=== PATIENT | female | born 1950 | race Caucasian/White ===

== ENCOUNTER → 2020-01-05 10:06 | Outpatient (CLI) | payer MEDICARE, OTHER, SELFPAY ==
--- NOTE | ~2020-01-05 | US_ITS ---
EXAMINATION: US renal BI EXAM DATE: 01/05/2020 11:34 INDICATION: Chronic kidney disease stage IV. TECHNIQUE: Multiple grayscale and Doppler images of the kidneys were obtained (by a technologist who performed the scan) and subsequently reviewed. There is no prior study for comparison. FINDINGS: Severe bilateral renal cortical thinning. Right kidney: There is normal contour and echogenicity. It measures 10.3 x 6.1 x 5.0 centimeters. Ca lcific density with shadowing could be a 1 cm kidney stone. There are a couple of lesions likely cyst s measuring up to 1.6 cm. There is no hydronephrosis. Left kidney: There is normal contour and echogenicity. It measures 10.0 x 5.7 x 5.2 centimeters. Th ere are no focal renal lesions identified. There is no hydronephrosis. Bladder unremarkable. IMPRESSION: 1. Severe bilateral renal cortical thinning. 2. Probable right nephrolithiasis. Reviewed, dictated and finalized at location B. [employer]AL[employer] CONTROL TECHNICIAN
== END ==
PROVIDERS: PCP Family Medicine; Visit Provider Internal Medicine Nephrology
DX: N18.4 Chronic kidney disease, stage 4 (severe) (principal); N28.9 Disorder of kidney and ureter, unspecified
CPT/HCPCS: 76775

== ENCOUNTER → 2021-08-28 00:14 | Outpatient (CLI) | payer MEDICARE, OTHER, SELFPAY ==
[2021-08-28 18:52] LABS: SARS-CoV-2 RNA PCR Negative
== END ==
PROVIDERS: PCP Family Medicine; Referring Provider Internal Medicine Cardiovascular Disease; Visit Provider Internal Medicine Cardiovascular Disease
DX: Z01.812 Encounter for preprocedural laboratory examination (principal); Z20.822 Contact with and (suspected) exposure to COVID-19
CPT/HCPCS: C9803; U0003; U0005

== ENCOUNTER 2021-11-09 09:45 | Outpatient (RCR) | payer MEDICARE, OTHER, SELFPAY ==
[2021-10-13 15:41] VITALS: PULSE 64
== END 2021-11-13 10:40 | disposition home or self-care (01) ==
LOC: ANHCPREHAB 09:45
PROVIDERS: PCP Family Medicine; Visit Provider Internal Medicine Cardiovascular Disease
DX: Z95.2 Presence of prosthetic heart valve (principal)
CPT/HCPCS: 93798

== ENCOUNTER 2022-03-22 01:22 | Day surgery (SDC) | payer MEDICARE, SELFPAY ==
[2022-02-27 14:05] VITALS: BMI 35.9
[2022-03-22 12:10] VITALS: BP 149/64; PULSE 89; RESP 20; TEMP 36.6; O2SAT 99
[2022-03-22] MEDS: LACTATED RINGERS 1,000 ML 150 ML IV CONT (12:29)
[2022-03-22] MEDS: GENTAMICIN 80MG/SOD CHL 50 ML 80 MG/50 ML BAG 100 MG IVPB (12:30)
--- NOTE | 2022-03-22 12:46 | PM.HPGS ---
History of Present Illness History of Present Illness Consent: Risks, benefits, and alternatives have been discussed and questions answered. Patient agrees to proceed with procedure. Chief complaint: anemia Narrative: Amelie Menjivar is a 71 year old female Referred for colon cancer screening. She has been found to be anemic. Her last colonoscopy was done about 9 years ago. That examination was also done because of anemia. At that time it appears that she had 1 small polyp removed. He denies seeing blood in her stools. She had been on a blood thinner for a few months after she had her aortic valve replaced last fall but is no longer taking it. Review of Systems Review of Systems: All systems reviewed & are unremarkable except as noted in HPI and below PMFSH Past Medical History Medical History Aortic stenosis Surgical History Surgical History Ganglion cyst s/p excision from left wrist S/P TAVR (transcatheter aortic valve replacement) Family History Family History Father Family history of coronary artery disease Social History Social History Smoking packs per day: 2 Smoking cigarettes per day: 40.0 Years smoked: 13 Smoking pack-years: 26.00 Smoking status: Former smoker Tobacco type: cigarettes Second hand tobacco smoke exposure: No Smoking end date: 11/11/79 Alcohol intake: never Substance use: never Substance use type: does not use Living arrangements: alone Gender identity (if verbalized by the patient): Female Spiritual care concerns: No Meds Home Medications and Allergies Home Medications Medication Instructions Recorded Confirmed Type labetalol 200 mg tablet 200 mg PO Q12H #180 tablet 10/02/21 02/27/22 Rx Calcium 600 + D(3) 600 mg PO DAILY 10/13/21 02/27/22 History aspirin [Adult Aspirin] 81 mg PO DAILY 10/13/21 02/27/22 History diltiazem HCl 120 mg PO DAILY 10/13/21 02/27/22 History potassium [Potassium-99] 99 mg PO DAILY 10/13/21 02/27/22 History citalopram 20 mg tablet 20 mg PO DAILY #90 tablet 12/04/21 02/27/22 Rx losartan 100 mg tablet 100 mg PO DAILY #90 tablet 12/04/21 02/27/22 Rx minoxidil 2.5 mg tablet 2.5 mg PO BID #180 tablet 01/17/22 02/27/22 Rx atorvastatin 80 mg tablet 80 mg PO DAILY #90 tablet 02/26/22 02/27/22 Rx fenofibrate 48 mg PO DAILY 02/27/22 02/27/22 History Allergies Allergy/AdvReac Type Severity Reaction Status Date / Time No Known Allergies Allergy Verified 03/22/22 12:09 Vital Signs Vital Signs - 24 hr 03/22/22 12:10 Temperature 36.6 C Pulse Rate 89 Respiratory Rate 20 Blood Pressure 149/64 H Pulse Oximetry 99 Exam Resp: Auscultation: clear to auscultation bilaterally Cardio: Rate: regular rate Rhythm: regular rhythm GI: GI Palp: Yes Soft to palpation and No Tenderness to palpation present (GI) Assessment and Plan Assessment and plan (1) Anemia: Code(s): D64.9 - Anemia, unspecified Status: Acute Assessment and Plan: Colonoscopy with possible biopsy or polypectomy or cautery or injection of substances.
--- NOTE | 2022-03-22 12:53 | WPDANESEPPF ---
Anes - Initial Pre Proc Eval Procedure: Operation Date: 03/22/22 13:30 Proposed Procedures p Colonoscopy - Jerry Benavides MD Date/Time: 03/22/22 12:53 Surgeon: Jerry Benavides MD Pre Op Diagnosis: anemia Patient Data Age: 71 Gender: F Height: 1.55 m Weight: 85.4 kg Last Vital Signs Temp 97.8 F 03/22/22 12:10 Pulse 89 03/22/22 12:10 Resp 20 03/22/22 12:10 BP 149/64 H 03/22/22 12:10 Pulse Ox 99 03/22/22 12:10 Allergies Allergy/AdvReac Type Severity Reaction Status Date / Time No Known Allergies Allergy Verified 03/22/22 12:09 Home Medications Medication Instructions Recorded Confirmed Type labetalol 200 mg tablet 200 mg PO Q12H #180 tablet 10/02/21 02/27/22 Rx Calcium 600 + D(3) 600 mg PO DAILY 10/13/21 02/27/22 History aspirin [Adult Aspirin] 81 mg PO DAILY 10/13/21 02/27/22 History diltiazem HCl 120 mg PO DAILY 10/13/21 02/27/22 History potassium [Potassium-99] 99 mg PO DAILY 10/13/21 02/27/22 History citalopram 20 mg tablet 20 mg PO DAILY #90 tablet 12/04/21 02/27/22 Rx losartan 100 mg tablet 100 mg PO DAILY #90 tablet 12/04/21 02/27/22 Rx minoxidil 2.5 mg tablet 2.5 mg PO BID #180 tablet 01/17/22 02/27/22 Rx atorvastatin 80 mg tablet 80 mg PO DAILY #90 tablet 02/26/22 02/27/22 Rx fenofibrate 48 mg PO DAILY 02/27/22 02/27/22 History Patient hx anesthesia problems: none Family hx anesthesia problems: none Results Review: All pre-operative results and documents have been reviewed as part of the pre-operative evaluation. COUNTS INCLUDE 234 BEDS AT THE [facility] Past Medical History Medical History Aortic stenosis Surgical History Surgical History Ganglion cyst s/p excision from left wrist S/P TAVR (transcatheter aortic valve replacement) Family History Family History Father Family history of coronary artery disease Social History Social History Smoking packs per day: 2 Smoking cigarettes per day: 40.0 Years smoked: 13 Smoking pack-years: 26.00 Smoking status: Former smoker Tobacco type: cigarettes Second hand tobacco smoke exposure: No Smoking end date: 11/11/79 Alcohol intake: never Substance use: never Substance use type: does not use Living arrangements: alone Gender identity (if verbalized by the patient): Female Spiritual care concerns: No Anes - Eval Final PreProcedure Day of Procedure 03/22/22 12:53 Patient weight: obese Heart: regular rate and rhythm and murmur Lungs: clear to auscultation Airway: Mallampati scale class II Neurological: alert and oriented Last oral intake: >/= 8 hours ASA classification: III Emergent: no Anesthetic plan: proceed Anesthesia type and monitoring: general GIVS and standard monitoring Results Review: All pre-operative results and documents have been reviewed as part of the pre-operative evaluation. Informed Consent: The patient's anesthetic plan and its attendant risks and benefits were discussed with the patient/family/POA. Questions were solicited and answers provided to the satisfaction of the patient/family/POA.
[2022-03-22] MEDS: AMPICILLIN 2 GM/NS 100 ML 2 GM/100 ML BAG IVPB (12:57)
[2022-03-22 13:53] VITALS: BP 147/72; PULSE 88; RESP 27; O2SAT 95
[2022-03-22 14:03] VITALS: BP 152/61; PULSE 89; RESP 20; O2SAT 97
[2022-03-22 14:13] VITALS: BP 139/64; PULSE 84; RESP 21; O2SAT 98
== END 2022-03-22 14:32 | disposition home or self-care (01) ==
PROVIDERS: PCP Family Medicine; Visit Provider Internal Medicine Gastroenterology
PROC: 0DJD8ZZ Inspection of Lower Intestinal Tract, Via Natural or Artificial Opening Endoscopic (ICD-10-PCS; CPT 45378; principal; 2022-03-22 13:30)
DX: D64.9 Anemia, unspecified (principal); D12.4 Benign neoplasm of descending colon; K64.8 Other hemorrhoids; Z79.82 Long term (current) use of aspirin; I35.0 Nonrheumatic aortic (valve) stenosis; Z95.2 Presence of prosthetic heart valve; Z87.891 Personal history of nicotine dependence; E66.9 Obesity, unspecified; Z68.35 Body mass index [BMI] 35.0-35.9, adult
CPT/HCPCS: 45385; 88305; J0290; J1580; J2704; J7120

== ENCOUNTER 2022-06-24 18:23 | Emergency (ER) | payer MEDICARE, SELFPAY ==
[2022-06-24] VITALS (31 sets, daily range): BP systolic 81–157; BP diastolic 28–72; PULSE 48–82; RESP 11–20; TEMP 32.2–35.3; O2SAT 83–100
--- NOTE | ~2022-06-24 | CT_ITS ---
EXAMINATION: CT brain wo con DATE: 06/24/2022 20:33 INDICATION: Altered mental status TECHNIQUE: Computed tomography (CT) of the head was performed without intravenous contrast. The dose- length product was 1362.00 mGy-cm. Automated exposure control and iterative reconstruction technique were employed. COMPARISON: CT dated 03/14/2004 FINDINGS: Study is significantly limited by motion artifact. Generalized atrophy. Chronic right front al lobe infarction. There are scattered moderate periventricular and subcortical white matter changes , most likely related to small vessel ischemic disease (microangiopathy). Possible small right fronta l subdural hematoma, although this could be related to motion artifact. Recommend repeat CT scan foll owing sedation. No acute infarction identified. No ventriculomegaly or midline shift. Paranasal sinus es and mastoids are pneumatized. No depressed skull fractures. IMPRESSION: 1. Possible small right frontal subdural hematoma, although this could be artifact secondary to signi ficant motion. Recommend repeat CT head when the patient's condition permits following sedation. 2: Chronic right frontal lobe infarction. 3: Chronic age-related findings. Reviewed, dictated and finalized at location A. IMPRESSION: 1. Possible small right frontal subdural hematoma, although this could be artif act secondary to significant motion. Recommend repeat CT head when the patient' s condition permits following sedation. 2: Chronic right frontal lobe infarction. 3: Chronic age-related findings.
--- NOTE | ~2022-06-24 | XR_ITS ---
XR chest 1V portable 06/24/2022 19:56 Indication: Bradycardia. Shortness of breath. Procedure: AP portable chest Comparison: Comparison to multiple prior studies sequentially, with oldest reviewed study dated 02/2004. Findings: Moderate cardiomegaly. There is mild interstitial edema. No pleural effusion or pneumothora x. No acute osseous abnormality. There is a prosthetic aortic valve. Impression: 1: Moderate cardiomegaly with interstitial edema. Reviewed, dictated and finalized at location A. Impression: 1: Moderate cardiomegaly with interstitial edema.
--- NOTE | ~2022-06-24 | CT_ITS ---
EXAMINATION: CT chest abdomen pelvis w con DATE: 06/24/2022 20:38 CDT INDICATION: Sepsis. Hematoma the right thigh. Altered mental status. TECHNIQUE: Computed tomography (CT) of the chest, abdomen, and pelvis was performed with 100 cc Omnip aque 350 intravenous contrast. The dose-length product was 1677.29 mGy-cm. Automated exposure control and iterative reconstruction technique were employed. COMPARISON: None FINDINGS: CHEST CT: Cardiomegaly. There is atherosclerosis of the aorta and coronary arteries. Study limited by motion ar tifact. No thoracic lymphadenopathy. Enlarged pulmonary arteries suspicious for pulmonary hypertensio n. Dependent atelectasis. No pneumothorax identified. ABDOMEN/PELVIS CT: The liver, spleen, adrenal glands are unremarkable. There is bilateral renal atrophy. There are bilat eral renal cysts. There is a 2.7 cm intermediate density mass of the left kidney. Correlation with ul trasound recommended when the patient's condition permits. Gallbladder present. Nonobstructive bowel gas pattern. No evidence for free air or free fluid. Petit catheter present in the bladder. There is moderate thoracic and lumbar spondylosis. IMPRESSION: 1. No acute abnormality of the chest, abdomen or pelvis. 2: Cardiomegaly. 3: Bilateral renal atrophy, likely secondary to chronic renal disease. 4: Intermediate density left renal mass measuring 2.7 cm. Correlation with ultrasound recommended wh en patient's condition permits. Reviewed, dictated and finalized at location A. IMPRESSION: 1. No acute abnormality of the chest, abdomen or pelvis. 2: Cardiomegaly. 3: Bilateral renal atrophy, likely secondary to chronic renal disease. 4: Intermediate density left renal mass measuring 2.7 cm. Correlation with ult rasound recommended when patient's condition permits.
--- NOTE | 2022-06-24 18:39 | ECG_ITS ---
Measurements Intervals Harris Rate: 47 P: 12 WI: 150 QRS: 39 QRSD: 124 T: 11 QT: 507 QTc: 451 Interpretive Statements SINUS BRADYCARDIA NONSPECIFIC INTRAVENTRICULAR CONDUCTION DELAY [110+ ms QRS DURATION] BORDERLINE ECG NO PREVIOUS ECG AVAILABLE FOR COMPARISON Electronically Signed On 06-25-2022 13:54:58 CDT by Adolph Mitchell M.D.
[2022-06-24 18:51] LABS: Basophils Percent Auto 0.3 % (0.2-1.2); Eosinophils Percent Auto 0.4 % (0-4.4); Hematocrit 21.9 % (37.0-47.0); Immature Granulocyte Absolute 0.05 K/mm3 (0.00-0.031); Immature Granulocyte Percent A 0.7 % (0-0.5); Lymphocytes Absolute Auto 0.43 K/mm3 (0.9-3.2); Lymphocytes Percent Auto 5.8 % (18.3-44.2); Mean Corpuscular HGB Conc 29.7 g/dl (32-36); Mean Corpuscular Hemoglobin 28.4 pg (26-34); Mean Corpuscular Volume 95.6 fl (80-100); Mean Platelet Volume 10.7 fl (7.4-10.4); Monocytes Absolute Auto 0.4 K/mm3 (0.1-0.6); Monocytes Percent Auto 5.3 % (2.6-8.5); Neutrophils Absolute Auto 6.5 K/mm3 (1.3-6.7); Neutrophils Percent Auto 87.5 % (45.5-73.1); Platelet Count Result 261 k/mm3 (150-375); Red Blood Count 2.29 M/mm3 (4.2-5.4); Red Cell Distribution Width 15.6 % (11.5-14.5); White Blood Count 7.4 K/mm3 (4.5-10.0)
[2022-06-24 19:00] LABS: Hemoglobin 6.5 g/dL (12.0-15.0); INR 1.4; Prothrombin Time 16.4 Seconds (11.1-14.7)
[2022-06-24] MEDS: DEXTROSE 50% 25 GM/50 ML SYRINGE (19:00)
[2022-06-24 19:01] LABS: Partial Thromboplastin Time 33.7 SECONDS (22.3-36.8)
[2022-06-24 19:02] LABS: Hypochromasia 1+ (NORMAL); Ovalocytes 1+ (NORMAL); Platelet Estimate Adequate (Adequate)
[2022-06-24 19:03] LABS: Glucose Point of Care 143 mg/dl (65-105)
[2022-06-24] MEDS: NOREPINEPHRINE 8 MG/D5W 250 ML 8 MG/250 ML BAG 9.4 MG (19:07)
[2022-06-24] MEDS: GLUCOSE ORAL GEL 15 GM OF GLUCSE IN 37.5 GM TUBE (19:08)
[2022-06-24 19:17] LABS: Troponin I 0.042 ng/mL (0.000-0.034)
[2022-06-24 19:22] LABS: Appearance Urine Clear (Clear); Bilirubin Urine 1+ (Negative); Blood Urine Trace-lysed (Negative); Color Urine Yellow (Yellow); Glucose Urine UA Negative (Negative); Ketones Urine Negative (Negative); Leukocyte Esterase Ur 1+ LEU/UL (Negative); Nitrate Urine Negative (Negative); Protein Urine Trace mg/dL (Negative); Specific Grav Ur 1.025 (1.001-1.035); Urobilinogen Urine 0.2 mg/dL (<2.0)
[2022-06-24 19:26] LABS: Bacteria Urine Trace /hpf; Mucus Urine Rare /lpf; RBC Urine 0-2 /hpf (0-2); Squamous Epithelial Cell Urine Rare /hpf (Few); Transitional Epi Cells Urine Rare /hpf (None Seen)
--- NOTE | 2022-06-24 19:26 | ED.GENADULT ---
HPI - General Adult General Chief complaint: Altered Mental Status Stated complaint: altered mental Time Seen by Provider: 06/24/22 18:38 History of Present Illness HPI narrative: This is a 71-year-old female, past medical history of hypertension and diabetes, brought to the emergency department for altered mental status. Patient's who is at bedside states she has appeared to lethargic over the past day. He states she has not been eating and is not sure if her blood glucose is low. He states she has had some fevers but no other obvious infectious signs. Related Data Home Medications Medication Instructions Recorded Confirmed Calcium 600 + D(3) 600 mg PO DAILY 10/13/21 02/27/22 aspirin 81 mg tablet 81 mg PO DAILY 10/13/21 02/27/22 diltiazem HCl 60 mg tablet 120 mg PO DAILY 10/13/21 02/27/22 potassium 99 mg tablet 99 mg PO DAILY 10/13/21 02/27/22 fenofibrate 160 mg tablet 48 mg PO DAILY 02/27/22 02/27/22 Allergies Allergy/AdvReac Type Severity Reaction Status Date / Time No Known Allergies Allergy Verified 03/22/22 12:09 Review of Systems Review of Systems: Review of systems limited by patient acuity [facility] Past Medical History Medical History Aortic stenosis Surgical History Surgical History Ganglion cyst s/p excision from left wrist S/P TAVR (transcatheter aortic valve replacement) Family History Family History Father Family history of coronary artery disease Social History Social History Smoking packs per day: 2 Smoking cigarettes per day: 40.0 Years smoked: 13 Smoking pack-years: 26.00 Smoking status: Former smoker Tobacco type: cigarettes Second hand tobacco smoke exposure: No Smoking end date: 11/11/79 Alcohol intake: never Substance use: never Substance use type: does not use Gender identity (if verbalized by the patient): Female Spiritual care concerns: No Exam Narrative: GENERAL: Diaphoretic, minimally responsive to voice and painful stimulus HEAD: Normocephalic, atraumatic. EYES: PERRLA and EOMI. ENT: Nares clear, no rhinorrhea or epistaxis. Mucous membranes dry. Oropharynx without tonsillar hypertrophy exudate or other lesions. NECK: Supple. No adenopathy or masses. No carotid bruits or JVD CHEST: Clear to auscultation. No respiratory distress. No wheezes rales or rhonchi HEART: Bradycardic with regular rhythm ( sinus rhythm noted on the monitor) No murmur heard. Normal peripheral pulses. ABDOMEN: Soft, nontender, nondistended, normal active bowel sounds. EXTREMITIES: Normal range of motion. No edema. Large hematoma is noted over the right lateral and posterior thigh, no thrill noted, bilateral lower extremity edema 1+ with hypertrophy SKIN: Warm, dry, no rash. NEURO: No focal deficits. Alert and oriented x3. PSYCH: Normal mood and affect. Course Course Emergency Course: 18:40 - Patient presented with hypoglycemia to 42. She was given oral glucose and an amp of dextrose with improvement to the 140s. Blood pressure noted to be in the 80s. I suspect sepsis we will start sepsis protocol and begin Levophed. 19:20 - Informed reinforcing rod layer, Dr. Valentin of patient's current condition, suspected sepsis and ongoing work-up with anticipated admission. 20:00 - Discussed patient with hospitalist, Dr. Villanueva who request patient be transferred to trauma center considering the patient's right leg hematoma and decrease in hemoglobin. We will obtain CT chest abdomen pelvis and head to evaluate for hemorrhage. Chest x-ray concerning for interstitial edema, will hold IV fluids and continue pressors. 20:52 - CT chest abdomen pelvis does not show other source for infection. Hematoma noted in the right leg that is not concerning for active bleed and appears to
[2022-06-24 19:34] LABS: Add Urine Microscopic? YES
[2022-06-24 19:44] LABS: Glucose Point of Care 42 mg/dl (65-105)
--- NOTE | 2022-06-24 19:48 | PM.IMHP ---
H&P: HPI History of Present Illness Date/Time: 06/24/22 19:48 [facility] Past Medical History Medical History Aortic stenosis Surgical History Surgical History Ganglion cyst s/p excision from left wrist S/P TAVR (transcatheter aortic valve replacement) Family History Family History Father Family history of coronary artery disease Social History Social History Smoking packs per day: 2 Smoking cigarettes per day: 40.0 Years smoked: 13 Smoking pack-years: 26.00 Smoking status: Former smoker Tobacco type: cigarettes Second hand tobacco smoke exposure: No Smoking end date: 11/11/79 Alcohol intake: never Substance use: never Substance use type: does not use Gender identity (if verbalized by the patient): Female Spiritual care concerns: No Meds Home Medications and Allergies Home Medications Medication Instructions Recorded Confirmed Type labetalol 200 mg tablet 200 mg PO Q12H #180 tabs 10/02/21 02/27/22 Rx Calcium 600 + D(3) 600 mg PO DAILY 10/13/21 02/27/22 History aspirin 81 mg tablet 81 mg PO DAILY 10/13/21 02/27/22 History diltiazem HCl 60 mg tablet 120 mg PO DAILY 10/13/21 02/27/22 History potassium 99 mg tablet 99 mg PO DAILY 10/13/21 02/27/22 History citalopram 20 mg tablet 20 mg PO DAILY #90 tabs 12/04/21 02/27/22 Rx losartan 100 mg tablet 100 mg PO DAILY #90 tabs 12/04/21 02/27/22 Rx minoxidil 2.5 mg tablet 2.5 mg PO BID #180 tabs 01/17/22 02/27/22 Rx atorvastatin 80 mg tablet (Lipitor) 80 mg PO DAILY #90 tabs 02/26/22 02/27/22 Rx fenofibrate 160 mg tablet 48 mg PO DAILY 02/27/22 02/27/22 History Allergies Allergy/AdvReac Type Severity Reaction Status Date / Time No Known Allergies Allergy Verified 03/22/22 12:09 Vital Signs Vital Signs - 24 hr 06/24/22 18:30 06/24/22 19:07 Pulse Rate 48 L 49 L Blood Pressure 102/70 115/52 L Pulse Oximetry 83 L Oxygen Delivery Room Air H&P: Results Labs Labs: Short CBC 06/24/22 Range/Units 18:45 WBC 7.4 (4.5-10.0) K/mm3 Hgb 6.5 L* (12.0-15.0) g/dL Hct 21.9 L (37.0-47.0) % Plt Count 261 (150-375) k/mm3 Cardiac Enzymes 06/24/22 Range/Units 18:45 Troponin I 0.042 H* (0.000-0.034) ng/mL Urine 06/24/22 Range/Units 19:18 Urine Color Yellow (Yellow) Urine Appearance Clear (Clear) Urine pH 5.0 (5.0-9.0) Ur Specific [place] 1.025 (1.001-1.035) Urine Protein Trace (Negative) mg/dL Urine Glucose (UA) Negative (Negative) mg/dL
--- NOTE | 2022-06-24 20:05 | PC.NURSE ---
This RN MD about central line. MD notified no changes at this time. Patient blood cultures not drawn EDP Fallon aware and asked us to start antibiotics. 2099 16 IV placed in hand.
--- NOTE | 2022-06-24 20:07 | PC.NURSE ---
To CT scan with RN and gate technician.
[2022-06-24 20:08] LABS: Hematocrit 21.4 % (37.0-47.0)
[2022-06-24 20:10] LABS: Hemoglobin 6.3 g/dL (12.0-15.0)
[2022-06-24 20:19] LABS: Estimated CRCL calculation 11 ml/min; Estimated Glomerular Filt Rate 10
[2022-06-24 21:19] LABS: Alanine Aminotransferase 37 U/L (6-35); Albumin Level 3.4 g/dL (3.5-5.1); Alkaline Phosphatase 26 U/L (38-126); Anion Gap 10 mmol/L (8-16); Aspartate Amino Transferase 51 U/L (14-36); Bilirubin,Total 0.9 mg/dL (0.2-1.3); Blood Urea Nitrogen 85 mg/dL (7-17); CRP 2.7 mg/dL (<1.0); Calcium 8.7 mg/dL (8.4-10.2); Carbon Dioxide 19 mmol/L (22-30); Chloride 110 mmol/L (98-107); Estimated CRCL calculation 12 ml/min; Estimated Glomerular Filt Rate 10; Glucose 98 mg/dL (65-110); Potassium 5.5 mmol/L (3.4-5.0); Sodium 139 mmol/L (137-145)
[2022-06-24] MEDS: FENTANYL 2,500MCG/NS250ML(*CRX 2,500 MCG/250 ML BAG 10 MCG IV CONT (21:25)
--- NOTE | 2022-06-24 21:46 | PM.IMHP ---
H&P: HPI History of Present Illness Date/Time: 06/24/22 21:46 [facility] Past Medical History Medical History Aortic stenosis Surgical History Surgical History Ganglion cyst s/p excision from left wrist S/P TAVR (transcatheter aortic valve replacement) Family History Family History Father Family history of coronary artery disease Social History Social History Smoking packs per day: 2 Smoking cigarettes per day: 40.0 Years smoked: 13 Smoking pack-years: 26.00 Smoking status: Former smoker Tobacco type: cigarettes Second hand tobacco smoke exposure: No Smoking end date: 11/11/79 Alcohol intake: never Substance use: never Substance use type: does not use Gender identity (if verbalized by the patient): Female Spiritual care concerns: No Meds Home Medications and Allergies Home Medications Medication Instructions Recorded Confirmed Type labetalol 200 mg tablet 200 mg PO Q12H #180 tabs 10/02/21 02/27/22 Rx Calcium 600 + D(3) 600 mg PO DAILY 10/13/21 02/27/22 History aspirin 81 mg tablet 81 mg PO DAILY 10/13/21 02/27/22 History diltiazem HCl 60 mg tablet 120 mg PO DAILY 10/13/21 02/27/22 History potassium 99 mg tablet 99 mg PO DAILY 10/13/21 02/27/22 History citalopram 20 mg tablet 20 mg PO DAILY #90 tabs 12/04/21 02/27/22 Rx losartan 100 mg tablet 100 mg PO DAILY #90 tabs 12/04/21 02/27/22 Rx minoxidil 2.5 mg tablet 2.5 mg PO BID #180 tabs 01/17/22 02/27/22 Rx atorvastatin 80 mg tablet (Lipitor) 80 mg PO DAILY #90 tabs 02/26/22 02/27/22 Rx fenofibrate 160 mg tablet 48 mg PO DAILY 02/27/22 02/27/22 History Allergies Allergy/AdvReac Type Severity Reaction Status Date / Time No Known Allergies Allergy Verified 03/22/22 12:09 Vital Signs Vital Signs - 24 hr 06/24/22 18:30 06/24/22 19:07 06/24/22 18:47 Pulse Rate 48 L 49 L 48 L Respiratory Rate 19 Blood Pressure 102/70 115/52 L 87/28 L Pulse Oximetry 83 L 99 Oxygen Delivery Room Air 06/24/22 19:01 06/24/22 19:21 06/24/22 19:42 Pulse Rate 48 L 48 L 51 L Respiratory Rate 15 14 16 Blood Pressure 101/49 L 81/57 L 114/72 Pulse Oximetry 100 98 95 Oxygen Delivery 06/24/22 19:45 06/24/22 21:25 Pulse Rate 56 L 63 Respiratory Rate 16 14 Blood Pressure Pulse Oximetry 100 Oxygen Delivery H&P: Results Labs Labs: Short CBC 06/24/22 06/24/22 Range/Units 18:45 20:02 WBC 7.4 (4.5-10.0) K/mm3 Hgb 6.5 L* 6.3 L* (12.0-15.0) g/dL Hct 21.9 L 21.4 L (37.0-47.0) % Plt Count 261 (150-375) k/mm3 BMP 06/24/22 06/24/22 18:45 20:15 Sodium 139 Potassium 5.5 H Chloride 110 H Carbon Dioxide 19 L BUN 85 H Creatinine 4.40 H 4.50 H Glucose 98 Calcium 8.7 Cardiac Enzymes 06/24/22 Range/Units 18:45 Troponin I 0.042 H* (0.000-0.034) ng/mL Liver Function 06/24/22 Range/Units 18:45 Total Bilirubin 0.9 (0.2-1.3) mg/dL AST 51 H (14-36) U/L ALT 37 H (6-35) U/L Alkaline Phosphatase 26 L (38-126) U/L Albumin 3.4 L (3.5-5.1) g/dL Urine 06/24/22 Range/Units 19:18 Urine Color Yellow (Yellow) Urine Appearance Clear (Clear) Urine pH 5.0 (5.0-9.0) Ur Specific [place] 1.025 (1.001-1.035) Urine Protein Trace (Negative) mg/dL Urine Glucose (UA) Negative (Negative) mg/dL
[2022-06-24] MEDS: SODIUM CHLORIDE 0.9% IV 250 ML 30 ML IV CONT (22:40)
[2022-06-24 22:45] LABS: Alveolar/Arterial O2 Gradient 158.8 mmHg; Base Excess ABG -6.1 mEq/l (+/-2.0); Fractional Inspired Oxygen 50 %; HCO3 ABG 18.6 mEq/l (22.0-26.0); Oxygen Content ABG 10.2 %vol (16.0-22.0); Oxygen Saturation ABG 99.1 % (95.0-100.0); Oxyhemoglobin 97.5 % THb (90.0-100.0); PCO2 ABG 33.4 mmHg (35.0-45.0); PO2 ABG 168.6 mmHg (80.0-100.0); PO2 FiO2 Ratio Arterial Blood 3.37 %; pH ABG 7.364 (7.350-7.450)
[2022-06-24 22:46] LABS: Device VENTILATOR; Modified Allen's Test Unable to perform; Site Drawn LEFT RADIAL; Total Hemoglobin 7.1 g/dL (12.0-18.0)
[2022-06-24 22:47] LABS: Arterial Blood Gas PEEP 5 cmH2O; Arterial Blood Gas Tidal Volume 450 ml; Arterial Blood Gas Vent Mode CMV; Arterial Blood Gas Ventilator rate 16 /MIN
--- NOTE | 2022-06-24 23:52 | PC.NURSE ---
2100 HILL Lehman decided to intubate this patient. He v erbally read to 3 nurses that he needed 200 of Ketamie given at 2104, DAVEY 100 @ 2106. DRIPS will be coming from pharmacy. EDP placed a 7 1/2 tube that was 26 at the teeth. Patient had good color change at this time. VS @ 2106- pulse 53, SpO2 90 Resp 11, B/P 90/48. This patient was very dirty and covered in Yeast so this RN and too techs cleaned up this patient and changed the sheets. Patient was found at this time to have blood coming out of her rectum and was also very red and swollen under every skin fold. Patient was also found to have stool between her toes. both legs had pitting edema of a 2+. Patient tongue enlarged and patient was unable to protect airway that is when the decision to intubate this patient was made. HILL Lehman in room at whole time. this RN asked to see if patient should have a central line with the norepi. No new orders at this time. patient had the current IV's 16g L hand 16g R EJ 18g L AC 18g R AC We started the patient on blood when it was ready. Patient left at 2322 after the second bag of blood was started. no VS documented for 2323 since patient was gone. Patinet was flown out because EMS stated they could not take the amount of medication on pumps that we had.
--- NOTE | 2022-06-25 00:28 | PC.NURSE ---
This RN did not leave patient the whole visit.
--- NOTE | 2022-06-25 00:28 | PC.NURSE ---
All medications running upon time of transport. [facility] Air [facility] team left at bedside and was wasted by this RN and plumbing installer Yokasta. RSI kit wasted by 3 nurses and signed by 3 nurses. RSI kit was locked by yellow lock before left by RN.
--- NOTE | 2022-06-25 00:31 | PC.NURSE ---
EDP verbally ordered soft restraints. they were opened but never put on the patient because after the sedation the patient did not move.
[2022-06-25 00:32] VITALS: BP 95/50; PULSE 55; RESP 16; O2SAT 100
--- NOTE | 2022-07-02 19:56 | PC.NURSE ---
ALL blood products were sent to [facility] with the patient
== END 2022-06-24 23:23 | disposition short-term general hospital (02) ==
PROVIDERS: Emergency Provider Preventive Medicine Aerospace Medicine; PCP Family Medicine
DX: N39.0 Urinary tract infection, site not specified (principal); D64.9 Anemia, unspecified; E11.649 Type 2 diabetes mellitus with hypoglycemia without coma; S70.11XA Contusion of right thigh, initial encounter; I10 Essential (primary) hypertension; I35.0 Nonrheumatic aortic (valve) stenosis; Z87.891 Personal history of nicotine dependence; Z79.82 Long term (current) use of aspirin; R00.1 Bradycardia, unspecified; I45.9 Conduction disorder, unspecified; I51.7 Cardiomegaly; N26.1 Atrophy of kidney (terminal); N28.89 Other specified disorders of kidney and ureter; J81.1 Chronic pulmonary edema; X58.XXXA Exposure to other specified factors, initial encounter
CPT/HCPCS: 31500; 36415; 36430; 36600; 51701; 70450; 71045; 71260; 74177; 80053; 81001; 82805; 82948; 83605; 84443; 84484; 85014; 85018; 85025; 85610; 85730; 86140; 86850; 86900; 86901; 86920; 87040; 87086; 93005; 96365; 96366; 96367; 96368; 96375; 99285; A9270; C1751; J0692; J2250; J3010; J3370; J7050; P9016; Q9967

== ENCOUNTER 2022-08-15 09:44 | Inpatient (IN) | payer MEDICARE, SELFPAY ==
[2022-08-15] VITALS (32 sets, daily range): BP systolic 132–175; BP diastolic 48–142; PULSE 63–86; RESP 13–27; TEMP 36.6–37; O2SAT 93–100; BMI 37.5
--- NOTE | ~2022-08-15 | XR_ITS ---
EXAMINATION: XR chest 1V portable DATE: 08/17/2022 12:53 INDICATION: Shortness of breath. TECHNIQUE: A single frontal view of the chest was obtained. COMPARISON: Chest single view 06/24/2022, chest CT 06/24/2022 FINDINGS: There is a diffuse interstitial pattern in the lungs. There are airspace opacities in the p erihilar regions. No pleural effusion or pneumothorax. Cardiomegaly is noted. There are changes of ao rtic valve replacement. IMPRESSION: 1. Diffuse lung disease, likely mild pulmonary edema. 2. Cardiomegaly. Reviewed, dictated and finalized at location B.
--- NOTE | ~2022-08-15 | XR_ITS ---
EXAMINATION: XR humerus RT DATE: 08/15/2022 12:46 INDICATION: Right upper arm injury and bruising. TECHNIQUE: 2 views of right humerus were obtained. COMPARISON: None. FINDINGS: Bone alignment is normal. No fracture. There is mild osteoarthritis of glenohumeral joint. There is a 6 cm mass in the upper arm soft tissues. IMPRESSION: 1. No fracture. 2. 6 cm mass in the upper arm soft tissues, which may be a hematoma. Reviewed, dictated and finalized at location A.
--- NOTE | ~2022-08-15 | US_ITS ---
EXAMINATION: US renal BI DATE: 08/16/2022 11:53 INDICATION: Chronic renal failure. TECHNIQUE: Multiple ultrasound grayscale images of the kidneys were obtained. COMPARISON: CT abdomen and pelvis 06/24/2022 FINDINGS: The right kidney measures 11.3 x 4.8 x 5.2 cm. The left kidney measures 13.3 x 7.1 x 6.8 cm. There is cortical thinning of the kidneys. The kidneys demonstrate increased parenchymal echogenicity, consis tent with nonspecific nephropathy. There are cysts in the kidneys measuring up to 2.2 cm on the left. There is no hydronephrosis. The bladder is normal. IMPRESSION: 1. Cortical thinning of the kidneys. No hydronephrosis. Reviewed, dictated and finalized at location A.
--- NOTE | ~2022-08-15 | US_ITS ---
EXAMINATION: US abdomen limited DATE: 08/16/2022 11:53 INDICATION: Abnormal liver function tests. TECHNIQUE: Multiple grayscale and Doppler ultrasound images of the abdomen were obtained. COMPARISON: CT abdomen and pelvis 06/24/2022 FINDINGS: The visualized portions of the head, body, and tail of the pancreas are normal. The liver i s normal without focal lesion. There is normal flow in main portal vein. The gallbladder is normal in size. No gallstones or gallbladder wall thickening. There was no sonographic Howe sign. The common duct is normal and measures 5 mm. IMPRESSION: 1. Normal right upper quadrant ultrasound. Reviewed, dictated and finalized at location A.
--- NOTE | ~2022-08-15 | US_ITS ---
EXAMINATION: US venous doppler [facility] DATE: 08/16/2022 15:56 INDICATION: Lower limb edema. TECHNIQUE: Grayscale ultrasound images without and with compression and Doppler ultrasound images of the bilateral lower extremity veins were obtained. COMPARISON: None. FINDINGS: The visualized portions of right common femoral vein, profunda (deep) femoral vein, femoral vein, pop liteal vein, peroneal veins, posterior tibial veins, and greater saphenous vein outflow are patent. The visualized portions of left common femoral vein, profunda femoral vein, femoral vein, popliteal v ein, peroneal veins, posterior tibial veins, and greater saphenous vein outflow are patent. IMPRESSION: 1. No deep venous thrombosis. Reviewed, dictated and finalized at location A.
--- NOTE | ~2022-08-15 | CT_ITS ---
EXAMINATION: CT brain wo con DATE: 08/15/2022 12:21 INDICATION: Status post fall. Head injury. TECHNIQUE: Computed tomography (CT) of the head was performed without intravenous contrast. The dose- length product was 605.33 mGy-cm. COMPARISON: CT dated 06/24/2022 FINDINGS: There is a chronic right frontal lobe infarction. There are scattered moderate periventricu lar and subcortical white matter changes, most likely related to small vessel ischemic disease (micro angiopathy). No ventriculomegaly or midline shift. Basilar cisterns are patent. There are chronic yoel ateral thalamic infarctions. Paranasal sinuses and mastoids are pneumatized. No depressed skull fract ures. Interval resolution of right frontal subdural hematoma. IMPRESSION: 1. No acute intracranial abnormality. 2: Chronic right frontal lobe and bilateral thalamic infarcts. 3: Chronic age-related findings. Reviewed, dictated and finalized at location B.
--- NOTE | 2022-08-15 10:33 | ECG_ITS ---
Measurements Intervals [place] Rate: 66 P: 84 SC: 160 QRS: 20 QRSD: 109 T: 21 QT: 430 QTc: 452 Interpretive Statements SINUS RHYTHM BASELINE ARTIFACT LOW-VOLTAGE QRS IN PRECORDIAL LEADS NONSPECIFIC ST ABNORMALITY COMPARED TO ECG 06/24/2022 18:44:07 HEART RATE HAS INCREASED Electronically Signed On 08-15-2022 15:20:31 CDT by Shaun Harp M.D.
--- NOTE | 2022-08-15 11:22 | ED.FALL ---
HPI - Fall General Chief Complaint: Fall Stated Complaint: FALL, R ARM LUMP Time Seen by Provider: 08/15/22 11:10 History of Present Illness HPI Narrative: states was asleep in recliner and felt something strike his legs. He awoke and was on ground in front of him. She complains of only bruising and swelling in her upper right arm. Pt denies FOX or numbness or weakness or neck pain. Pt getting home health and therapy at home. Related Data Home Medications Medication Instructions Recorded Confirmed Calcium 600 + D(3) 600 mg PO DAILY 10/13/21 08/08/22 aspirin 81 mg tablet 81 mg PO DAILY 10/13/21 08/08/22 fenofibrate 160 mg tablet 48 mg PO DAILY 02/27/22 08/08/22 Allergies Allergy/AdvReac Type Severity Reaction Status Date / Time No Known Allergies Allergy Verified 08/08/22 11:03 Review of Systems Review of Systems: All systems reviewed & are unremarkable except as noted in HPI and below PMFSH Past Medical History Medical History Aortic stenosis Chronic kidney disease, stage 4 (severe) CVA (cerebral vascular accident) Hypertensive chronic kidney disease with stage 1 through stage 4 chronic kidney disease, or unspecified chronic kidney disease Mixed hyperlipidemia SDH (subdural hematoma) Surgical History Surgical History Ganglion cyst s/p excision from left wrist S/P TAVR (transcatheter aortic valve replacement) Family History Family History (Updated 08/15/22 @ 17:19 by Aliza Calvert NP) Father Family history of coronary artery disease Diabetes mellitus Social History Social History (Updated 08/15/22 @ 17:20 by Aliza Calvert NP) Social History: She is and lives with her . She has no children. 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 She denies any alcohol or illicit drugs. Her is a durable power workers compensation attorney for healthcare. Code status full code Smoking packs per day: 2 Smoking cigarettes per day: 40.0 Years smoked: 13 Smoking pack-years: 26.00 Smoking status: Former smoker Tobacco type: cigarettes Second hand tobacco smoke exposure: No Smoking end date: 11/11/79 Alcohol intake: never Substance use: never Substance use type: does not use Gender identity (if verbalized by the patient): Female Spiritual care concerns: No Exam Const: General: healthy appearing and no acute distress Limitations: altered mental status (dementia?) HENMT: Head: normal to inspection Eyes: Conjunctivae: conjunctivae normal Pupils: Equal, round and reactive pupils present EOM: EOMs intact bilaterally Neck: Neck: normal visual inspection, no lymphadenopathy and no meningeal signs Chest: Chest palpation & inspection: normal inspection of the chest Resp: Effort & Inspection: normal respiratory effort Auscultation: clear to auscultation bilaterally Cardio: Rate: regular rate Rhythm: regular rhythm GI: Auscultation: normal bowel sounds Skin: Other: bruising/hematome inside of right bicep Neuro: General: patient oriented x3, moves all extremities and no meningeal signs Speech: normal speech Extrem: General: normal to inspection Other: hematoma inside of right arm Psych: Mental Status: mental status grossly normal Affect: normal affect Attitude: cooperative Course Vital Signs Vital signs: Vital Signs Pulse Oximetry 97 08/15/22 11:09 Temperature 98.2 F 08/15/22 18:30 Pulse Rate 75 08/15/22 19:16 Respiratory Rate 15 08/15/22 19:16 Blood Pressure 161/48 H 08/15/22 19:16 Pulse Oximetry 96 08/15/22 19:16 MDM - Fall Lab Data Result diagrams: 08/15/22 15:45 08/15/22 11:43 Labs: Lab Results 08/15/22 08/15/22 08/15/22 Range/Units 11:43 11:43 11:43 WBC 7.1 (4.5-10.0) K/mm3 RBC 2.34 L (4.2-5.4) M/mm3 Hgb 6.9 L* (12.0-
[2022-08-15 11:50] LABS: Basophils Percent Auto 0.4 % (0.2-1.2); Eosinophils Absolute Auto 0.2 K/mm3 (0-0.3); Eosinophils Percent Auto 2.9 % (0-4.4); Hematocrit 22.5 % (37.0-47.0); Immature Granulocyte Absolute 0.09 K/mm3 (0.00-0.031); Immature Granulocyte Percent A 1.3 % (0-0.5); Lymphocytes Absolute Auto 0.48 K/mm3 (0.9-3.2); Lymphocytes Percent Auto 6.7 % (18.3-44.2); Mean Corpuscular HGB Conc 30.7 g/dl (32-36); Mean Corpuscular Hemoglobin 29.5 pg (26-34); Mean Corpuscular Volume 96.2 fl (80-100); Monocytes Absolute Auto 0.6 K/mm3 (0.1-0.6); Monocytes Percent Auto 7.8 % (2.6-8.5); Neutrophils Absolute Auto 5.8 K/mm3 (1.3-6.7); Neutrophils Percent Auto 80.9 % (45.5-73.1); Platelet Count Result 165 k/mm3 (150-375); Red Blood Count 2.34 M/mm3 (4.2-5.4); Red Cell Distribution Width 17.1 % (11.5-14.5); White Blood Count 7.1 K/mm3 (4.5-10.0)
[2022-08-15 11:53] LABS: Hemoglobin 6.9 g/dL (12.0-15.0)
[2022-08-15 12:00] LABS: Alanine Aminotransferase 40 U/L (6-35); Albumin Level 3.6 g/dL (3.5-5.1); Alkaline Phosphatase 22 U/L (38-126); Anion Gap 5 mmol/L (8-16); Aspartate Amino Transferase 60 U/L (14-36); Bilirubin,Total 1.4 mg/dL (0.2-1.3); Blood Urea Nitrogen 45 mg/dL (7-17); Calcium 9.2 mg/dL (8.4-10.2); Carbon Dioxide 25 mmol/L (22-30); Chloride 111 mmol/L (98-107); Estimated Glomerular Filt Rate 18; Glucose 96 mg/dL (65-110); Potassium 4.2 mmol/L (3.4-5.0); Sodium 141 mmol/L (137-145)
[2022-08-15 12:08] LABS: INR 1.4; Prothrombin Time 16.5 Seconds (11.1-14.7)
[2022-08-15 12:09] LABS: Partial Thromboplastin Time 30.7 SECONDS (22.3-36.8)
--- NOTE | 2022-08-15 14:51 | PM.IMHP ---
H&P: HPI History of Present Illness Date/Time: 08/15/22 14:51 Chief Complaint: Fall Narrative: This is a 72-year-old female patient to resides with her . The patient has been having multiple falls. The was asleep in the recliner any felt something strike his leg. He awoke and his was on the ground in front of him. She woke up with a large hematoma to right upper arm. She is not sure if she felt dizzy before or if she had any chest pain prior to this. She denies any headache or numbness or tingling are negative back. The patient does get home health and therapy at home. Her H&H is 6.9 and 22.5. The patient has had blood transfusions in the past. The patient had her last colonoscopy on 03/22/2022 where she was found to have internal hemorrhoids and descending colon polyps. Humerus x-ray was read as no fracture 6 cm mass in the upper arm soft tissue which may be a hematoma. Head CT was read as no acute intracranial abnormality. Chronic right frontal lobe and bilateral thalami infarcts. Chronic age-related. 1 unit of blood was ordered for the patient. She has chronic renal failure better creatinine is 2.6 today her last creatinine was 1.5. BUN is 45. Total bili room 1.4. AST 60 ALT 40 and alkaline phosphatase 22. Patient is being admitted to observation status on 08/15/2022 Review of Systems Review of Systems: See HPI All systems reviewed & are unremarkable except as noted in HPI and below Constitutional: Constitutional: Reports as per HPI and Reports no additional constitutional complaints Eyes: Eyes: Reports as per HPI and Reports no additional eye complaints ENT: Reports system reviewed and no additional complaints, except as documented and Reports Normal hearing present Cardiovascular: Cardiovascular: Reports no additional cardiovascular complaints Respiratory: Respiratory: Reports no additional respiratory complaints and Reports no additional respiratory complaints Gastrointestinal: Gastrointestinal: Reports as per HPI and Reports no additional gastrointestinal complaints Musculoskeletal: Musculoskeletal: Reports no additional musculoskeletal complaints Integumentary/Breasts: Skin/Breast: Reports system reviewed and no additional complaints, except as docu and Reports as per HPI Neurologic: Reports system reviewed and no additional complaints, except as documented, Reports as per HPI and Reports Normal hearing present Psychiatric: Psychiatric: Reports no additional psychiatric complaints and Reports as per HPI Endocrine: Endocrine: Reports no additional endocrine complaints Hematologic/Lymphatic: Hematologic/Lymphatic: Reports no additional hematologic/lymphatic complaints Allergic/Immunologic: Allergic/Immunologic: Reports no additional allergic/immunologic complaints [facility] Past Medical History Medical History Aortic stenosis Chronic kidney disease, stage 4 (severe) CVA (cerebral vascular accident) Hypertensive chronic kidney disease with stage 1 through stage 4 chronic kidney disease, or unspecified chronic kidney disease Mixed hyperlipidemia SDH (subdural hematoma) Surgical History Surgical History Ganglion cyst s/p excision from left wrist S/P TAVR (transcatheter aortic valve replacement) Family History Family History (Updated 08/15/22 @ 17:19 by Aliza Calvert NP) Father Family history of coronary artery disease Diabetes mellitus Social History Social History (Updated 08/15/22 @ 17:20 by Aliza Calvert NP) Social History: She is and lives with her . She has no children. 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 She denies any alcohol or illicit drugs. Her is a durable power state's attorney for healthcare. Code status full code Smoking packs per day: 2 Smoking cigarettes per day: 40.0 Years smoked: 13 Smoking pack
[2022-08-15 15:56] LABS: Hematocrit 22.5 % (37.0-47.0)
[2022-08-15 16:58] LABS: Hemoglobin 6.9 g/dL (12.0-15.0)
[2022-08-15] MEDS: SODIUM CHLORIDE 0.9% IV 250 ML 30 ML IV CONT (19:24)
--- NOTE | 2022-08-15 20:12 | ADMGEN ---
This patient, Amelie Menjivar, was admitted to Medical Room 341-01. Patient/family oriented to hospital policies and general routines including ID bracelet, bed and alarms, visiting hours, pain management, procedures, bathroom and other care routines, personal items, smoking policy, room service/diet, and visiting hours. Information on how to activate the Rapid Response Team has been discussed. Patient/Family are encouraged to report perceived risks to care and to ask questions if they do not understand what they are told or what they should do.
[2022-08-15 21:10] LABS: Hemoglobin 8.1 g/dL (12.0-15.0)
[2022-08-15 22:05] LABS: IFOB Positive Control Positive; Immunochemical Fecal Occult Bl Negative (N)
[2022-08-15] MEDS: LABETALOL HCL 100 MG TABLET 200 MG PO (23:17)
[2022-08-16] VITALS (8 sets, daily range): BP systolic 110–153; BP diastolic 50–69; PULSE 65–74; RESP 16–20; TEMP 36.7–36.9; O2SAT 91–98
[2022-08-16 05:22] LABS: Basophils Percent Auto 0.3 % (0.2-1.2); Eosinophils Absolute Auto 0.1 K/mm3 (0-0.3); Hematocrit 24.5 % (37.0-47.0); Hemoglobin 7.5 g/dL (12.0-15.0); Immature Granulocyte Absolute 0.12 K/mm3 (0.00-0.031); Immature Granulocyte Percent A 1.3 % (0-0.5); Lymphocytes Absolute Auto 0.58 K/mm3 (0.9-3.2); Lymphocytes Percent Auto 6.2 % (18.3-44.2); Mean Corpuscular HGB Conc 30.6 g/dl (32-36); Mean Corpuscular Hemoglobin 29.4 pg (26-34); Mean Corpuscular Volume 96.1 fl (80-100); Mean Platelet Volume 10.2 fl (7.4-10.4); Monocytes Absolute Auto 0.7 K/mm3 (0.1-0.6); Monocytes Percent Auto 7.2 % (2.6-8.5); Neutrophils Absolute Auto 7.9 K/mm3 (1.3-6.7); Platelet Count Result 146 k/mm3 (150-375); Red Blood Count 2.55 M/mm3 (4.2-5.4); Red Cell Distribution Width 17.2 % (11.5-14.5); White Blood Count 9.4 K/mm3 (4.5-10.0)
[2022-08-16 05:45] LABS: Lactic Acid Reflex 0.5 mmol/L (0.7-2.0)
[2022-08-16 05:46] LABS: Alanine Aminotransferase 42 U/L (6-35); Albumin Level 3.6 g/dL (3.5-5.1); Alkaline Phosphatase 21 U/L (38-126); Anion Gap 13 mmol/L (8-16); Aspartate Amino Transferase 63 U/L (14-36); Bilirubin,Total 1.8 mg/dL (0.2-1.3); Blood Urea Nitrogen 42 mg/dL (7-17); Calcium 9.1 mg/dL (8.4-10.2); Carbon Dioxide 21 mmol/L (22-30); Chloride 111 mmol/L (98-107); Estimated CRCL calculation 20 ml/min; Estimated Glomerular Filt Rate 20; Glucose 76 mg/dL (65-110); Magnesium 2.2 mg/dL (1.6-2.3); Sodium 145 mmol/L (137-145)
--- NOTE | 2022-08-16 07:16 | WPDGICN ---
Assessment and Plan Assessment and plan (1) Anemia: Code(s): D64.9 - Anemia, unspecified Status: Acute Assessment and Plan: her MCV is in the normal range. I will check serum iron if that has not been done. I suspect her anemia is due in large part to chronic kidney disease. Stool Hemoccult is negative. (2) Chronic kidney disease, stage 4 (severe): Code(s): N18.4 - Chronic kidney disease, stage 4 (severe) Status: Acute Assessment and Plan: This very well is the major reason for her anemia. (3) Aortic stenosis: Code(s): I35.0 - Nonrheumatic aortic (valve) stenosis Status: Acute Assessment and Plan: It is possible she has some hemolysis due to they stenosis. (4) Personal history of colonic polyps: Code(s): Z86.010 - Personal history of colonic polyps Status: Acute Assessment and Plan: Colonoscopy was done within the past year with removal of 2 polyps. The patient denies seen any blood her stools Plan no indication for endoscopic procedures at this time. hematology consultation could be considered. GI Consult Note Consult date/time: 08/16/22 07:16 HPI: Amelie Menjivar is a 72 year old female Was admitted to the emergency room when after having fallen she was found to have a large hematoma on her right arm. She also is anemic with a hemoglobin of 6.9. She does have chronic anemia. I see that her hemoglobin in mid June was 6.3. In February of this year it was 9.7. I had seen her 6 months ago for colonoscopy because of a history of polyps and I did remove 2 polyps at that time. She had a colonoscopy in 2012 also, that examination was done for anemia when hemoglobin was 10.8. She denies seeing blood in her stools. She in fact has had a stool Hemoccult which was negative. She denies any gastrointestinal symptoms at this time such as nausea, vomiting, anorexia, weight loss, abdominal pain, dysphagia or heartburn. She does tend to get constipated infected when she had her colonoscopy earlier this year there was a significant amount of retained stool. She has chronic kidney disease with creatinine usually around 2. Effect was 2.1 last year. Was 4.99 last month then 2.6 yesterday and 2.4 today. Because of her fall she had CT scan of the head that was not remarkable for any acute process. She states that she does not tend to fall but she was lightheaded the other day and landed on her 's leg. Review of Systems Review of Systems: All systems reviewed & are unremarkable except as noted in HPI and below PMFSH Past Medical History Medical History Aortic stenosis Chronic kidney disease, stage 4 (severe) CVA (cerebral vascular accident) Hypertensive chronic kidney disease with stage 1 through stage 4 chronic kidney disease, or unspecified chronic kidney disease Mixed hyperlipidemia SDH (subdural hematoma) Surgical History Surgical History Ganglion cyst s/p excision from left wrist S/P TAVR (transcatheter aortic valve replacement) Family History Family History Father Family history of coronary artery disease Diabetes mellitus Social History Social History Social History: She is and lives with her . She has no children. 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 She denies any alcohol or illicit drugs. Her is a durable power commercial litigation attorney for healthcare. Code status full code Smoking packs per day: 2 Smoking cigarettes per day: 40.0 Years smoked: 13 Smoking pack-years: 26.00 Smoking status: Former smoker Second hand tobacco smoke exposure: No Alcohol intake: never Substance use: never Substance use type: does not use Gender identity (if verbalized by the patien
--- NOTE | 2022-08-16 09:13 | PCPTNOTE ---
Attempted PT evaluation, pt hgb at 7.5, RN reports pt may be getting another unit of blood today. RN also states, pt will be leaving floor for testing shortly and recommend therapy return at later time. Will Follow.
--- NOTE | 2022-08-16 10:36 | PCOTNOTE ---
Attempted OT evaluation, pt hgb at 7.5, RN reports pt may be getting another unit of blood today. Pt. has yet to be seen by hospitalist for plan of treatment. RN also states, pt will be leaving floor for testing shortly and recommend therapy return at later time. Will Follow.
[2022-08-16] MEDS: LABETALOL HCL 100 MG TABLET 200 MG PO ×2 (12:06→19:40)
[2022-08-16] MEDS: minoxidiL 2.5 MG TABLET PO ×2 (12:06→19:41)
[2022-08-16] MEDS: CITALOPRAM HYDROBROMIDE 20 MG TABLET PO (12:08)
[2022-08-16] MEDS: ISOSORBIDE MONONITRATE 60 MG TAB.ER.24H PO (12:08)
[2022-08-16] MEDS: FENOFIBRATE,MICRONIZED 48 MG TABLET PO (12:08)
[2022-08-16] MEDS: ASPIRIN 81 MG CHEWABLE TABLET PO (12:08)
--- NOTE | 2022-08-16 12:30 | PM.IMPN ---
Progress Note: A&P Assessment and Plan (1) Anemia: Code(s): D64.9 - Anemia, unspecified Status: Acute Assessment and Plan: -Dr. Benavides has been consulted. -colonoscopy on 03/22/2022 found to have internal hemorrhoids and polyps. -1 unit of packed red blood cells 08/15/22 -transfuse as necessary. -large hematoma on the right upper arm could be related to her blood loss. -not on any anticoagulation due to multiple falls. -stool for occult blood was negative -May consider Hematology consult. -This appears to be anemia of chronic disease -Renal function does seem to be labile and was recently 4.5-4.99 (2) Hematoma: Code(s): T14.8XXA - Other injury of unspecified body region, initial encounter Status: Acute Assessment and Plan: -the patient has a large right hematoma to right upper arm. -the patient is on an aspirin. But she is not on any anticoagulation. (3) CVA (cerebral vascular accident): Code(s): I63.9 - Cerebral infarction, unspecified Status: Acute Assessment and Plan: -history of CVA and she has had multiple falls. -PT OT evaluation greatly be appreciated. -the patient does get physical therapy at home as well as home health. -head CT showed chronic right frontal lobe and bilateral ophthalmic infarcts (4) Hypertensive chronic kidney disease with stage 1 through stage 4 chronic kidney disease, or unspecified chronic kidney disease: Code(s): I12.9 - Hypertensive chronic kidney disease with stage 1 through stage 4 chronic kidney disease, or unspecified chronic kidney disease Status: Acute Assessment and Plan: -avoid any nephrotoxic medication. -her creatinine is 2.4 with BUN of 42. -baseline creatinine unknown -Renal ultrasound performed on 01/05/2020 that shows severe bilateral renal cortical thinning -repeat renal ultrasound ?Cortical thinning of the kidneys. No hydronephrosis. -continue with minoxidil and labetalol (5) Mixed hyperlipidemia: Code(s): E78.2 - Mixed hyperlipidemia Status: Acute Assessment and Plan: -Continue with fenofibrate and hold atorvastatin related to the elevated liver enzymes. (6) Anxiety: Code(s): F41.9 - Anxiety disorder, unspecified Status: Acute Assessment and Plan: -continue with citalopram (7) Transaminitis: Code(s): R74.01 - Elevation of levels of liver transaminase levels Status: Acute Assessment and Plan: AST/ALT 63/42 Trend labs RUQ ultrasound negative hep panel in the am (8) Frequent falls: Code(s): R29.6 - Repeated falls Status: Acute Assessment and Plan: To falls less than a month Could be related to anemia PT and OT Orthostatic blood pressures Plan Lower extremity wounds. She has weeping edema. Wound care consult was greatly be appreciated. Time Spent With Patient Time with patient: Greater than 35 minutes Subjective Date/time seen: 08/16/22 123 Interval history: 08/16/221229 Patient appears to be comfortable at this time. She states that she does get sometimes dizzy however they feel like it is more that she does her balance. She does have frequent falls however is unknown why she is having these frequent falls. Upon arrival she was noted to be anemic however today she 7.5/24.5. She denies having any chest pain, shortness of breath, nausea, vomiting, diarrhea, constipation, weakness or fatigue. Patient said she is tired and would like to take a nap. 08/15/22? 14:51 This is a 72-year-old female patient to resides with her .? The patient has been having multiple falls.? The was asleep in the recliner any felt something strike his leg.? He awoke and his was on the ground in front of him.? She woke up with a large hematoma to right upper arm.? She is not sure if she felt dizzy before or if she had any chest pa
--- NOTE | 2022-08-16 15:23 | PCOTNOTE ---
Attempted to see pt. for occupational therapy evaluation. Pt. away from room at this time for testing. Nursing aware. Following
[2022-08-17] VITALS (9 sets, daily range): BP systolic 103–150; BP diastolic 41–58; PULSE 66–76; RESP 18–20; TEMP 36.4–36.7; O2SAT 98–100
--- NOTE | 2022-08-17 | ECHO_ITS ---
Patient Info Name: Amelie Menjivar Age: 72 years : 1950 Gender: Female Ht: 61 in Wt: 198 lbs BSA: 2.01 m2 HR: 65 bpm BP: 150 / 58 mmHg Heart Rhythm: Sinus Rhythm Technical Quality: Good Exam Date: 08/17/2022 12:26 PM Exam Location: [facility] Card Pulmonary Patient Status: Inpatient Admit Date: 08/15/2022 Staff Ordering Physician: Andrea Madison [employer] Supervisor: Evelyn Rodriguez RDCS Attending Provider: Lemuel Pineda MD Referring Physician: Los BROUSSARD; Exam Type: CA echo doppler color flow Study Info Indications - RAYMOND Complete two-dimensional, color flow and Doppler transthoracic echocardiogram is performed. Summary 1. Complete two-dimensional, color flow and Doppler transthoracic echocardiogram is performed. 2. Left ventricular hypertrophy with vigorous systolic function and diastolic noncompliance. 3. Enlarged left atrium. 4. Mild mitral and tricuspid valve regurgitation. 5. Doppler evidence of moderate pulmonary hypertension. 6. Mildly sclerotic aortic valve. Left Ventricle Left ventricular chamber dimension is normal. Left ventricular systolic function is normal, estimated at 65-70%. There is mild concentric increased left ventricular wall thickness. The left ventricular diastolic function is grade I diastolic dysfunction. Right Ventricle Right ventricular chamber dimension is normal. Left Atria Left atrial chamber dimension is mildly enlarged. Right Atria Right atrial chamber dimension is normal. Aortic Valve The aortic valve is trileaflet. There is mild aortic valve sclerosis. Pulmonic Valve The pulmonic valve is normal. Mitral Valve The mitral valve has normal leaflets. There is mild mitral valve regurgitation. Tricuspid Valve The tricuspid valve leaflets are normal. There is mild tricuspid valve regurgitation. Moderate pulmonary hypertension, estimated pulmonary arterial systolic pressure is 64 mmHg. Pericardium/Pleural The pericardium appears normal. Aorta The aortic root size at the sinus of Valsalva is normal. Left Ventricular Outflow Tract Name Value Normal LVOT 2D LVOT Diameter 2.1 cm LVOT Doppler LVOT Peak Gradient 8 mmHg LVOT Mean Gradient 5 mmHg LVOT VTI 40 cm LVOT VTI/AV VTI Ratio 0.4 LVOT Stroke Volume 135 ml LVOT CO 21.5 l/min LVOT CI 10.7 l/min/m2 Pulmonic Valve Name Value Normal PV Doppler PV Peak Gradient 7 mmHg Mitral Valve Name Value Normal MV Doppler ---------
[2022-08-17 05:42] LABS: Basophils Percent Auto 0.2 % (0.2-1.2); Eosinophils Absolute Auto 0.1 K/mm3 (0-0.3); Eosinophils Percent Auto 0.8 % (0-4.4); Hematocrit 23.2 % (37.0-47.0); Immature Granulocyte Absolute 0.19 K/mm3 (0.00-0.031); Immature Granulocyte Percent A 2.1 % (0-0.5); Lymphocytes Absolute Auto 0.56 K/mm3 (0.9-3.2); Lymphocytes Percent Auto 6.3 % (18.3-44.2); Mean Corpuscular HGB Conc 30.6 g/dl (32-36); Mean Corpuscular Hemoglobin 29.8 pg (26-34); Mean Corpuscular Volume 97.5 fl (80-100); Monocytes Absolute Auto 0.7 K/mm3 (0.1-0.6); Monocytes Percent Auto 8.3 % (2.6-8.5); Neutrophils Absolute Auto 7.3 K/mm3 (1.3-6.7); Neutrophils Percent Auto 82.3 % (45.5-73.1); Platelet Count Result 140 k/mm3 (150-375); Red Blood Count 2.38 M/mm3 (4.2-5.4); Red Cell Distribution Width 17.2 % (11.5-14.5); White Blood Count 8.9 K/mm3 (4.5-10.0)
[2022-08-17 05:53] LABS: Hemoglobin 7.1 g/dL (12.0-15.0)
[2022-08-17 05:57] LABS: Alanine Aminotransferase 41 U/L (6-35); Albumin Level 3.3 g/dL (3.5-5.1); Anion Gap 13 mmol/L (8-16); Aspartate Amino Transferase 57 U/L (14-36); Bilirubin,Total 1.5 mg/dL (0.2-1.3); Blood Urea Nitrogen 46 mg/dL (7-17); Carbon Dioxide 22 mmol/L (22-30); Chloride 110 mmol/L (98-107); Estimated CRCL calculation 21 ml/min; Estimated Glomerular Filt Rate 21; Glucose 94 mg/dL (65-110); Magnesium 2.3 mg/dL (1.6-2.3); Potassium 3.9 mmol/L (3.4-5.0); Sodium 145 mmol/L (137-145)
[2022-08-17 06:00] LABS: Alkaline Phosphatase < 20 U/L (38-126)
[2022-08-17] MEDS: LABETALOL HCL 100 MG TABLET 200 MG PO ×2 (09:15→21:59)
[2022-08-17] MEDS: CITALOPRAM HYDROBROMIDE 20 MG TABLET PO (09:15)
[2022-08-17] MEDS: ISOSORBIDE MONONITRATE 60 MG TAB.ER.24H PO (09:15)
[2022-08-17] MEDS: ASPIRIN 81 MG CHEWABLE TABLET PO (09:15)
[2022-08-17] MEDS: minoxidiL 2.5 MG TABLET PO ×2 (09:16→21:59)
[2022-08-17] MEDS: FENOFIBRATE,MICRONIZED 48 MG TABLET PO (09:16)
[2022-08-17 09:47] LABS: Transferrin 191 mg/dL (206-381)
[2022-08-17 10:45] LABS: Folic Acid 4.7 ng/mL (2.76->20)
--- NOTE | 2022-08-17 10:45 | PM.IMPN ---
Progress Note: A&P Assessment and Plan (1) CHF (congestive heart failure): Code(s): I50.9 - Heart failure, unspecified Status: Acute Assessment and Plan: Oxygen demand noted Echo from 01/03/22 showed EF of >70% and some diastolic dysfunction Lasix 40mg IV BID BNP 68241 It appears to be an acute on chronic diastolic heart failure exacerbation Watch renal function as she does have chronic failure Chest xray ordered Echo ordered Trend urine output Daily weights Adjust therapy as indicated (2) Anemia: Code(s): D64.9 - Anemia, unspecified Status: Acute Assessment and Plan: -Current H/H 7.12/03.2 -Dr. Benavides has been consulted. -colonoscopy on 03/22/2022 found to have internal hemorrhoids and polyps. -1 unit of packed red blood cells 08/15/22 -transfuse as necessary. -large hematoma on the right upper arm could be related to her blood loss. -not on any anticoagulation due to multiple falls. -stool for occult blood was negative -May consider Hematology consult. -This appears to be anemia of chronic disease, could also be from [place] [address] -Renal function does seem to be labile and was recently 4.5-4.99 -Anemia Labs (3) Hematoma: Code(s): T14.8XXA - Other injury of unspecified body region, initial encounter Status: Acute Assessment and Plan: -the patient has a large right hematoma to right upper arm. -the patient is on an aspirin. But she is not on any anticoagulation. (4) CVA (cerebral vascular accident): Code(s): I63.9 - Cerebral infarction, unspecified Status: Acute Assessment and Plan: -history of CVA and she has had multiple falls. -PT OT evaluation greatly be appreciated. -the patient does get physical therapy at home as well as home health. -head CT showed chronic right frontal lobe and bilateral ophthalmic infarcts (5) Hypertensive chronic kidney disease with stage 1 through stage 4 chronic kidney disease, or unspecified chronic kidney disease: Code(s): I12.9 - Hypertensive chronic kidney disease with stage 1 through stage 4 chronic kidney disease, or unspecified chronic kidney disease Status: Acute Assessment and Plan: -avoid any nephrotoxic medication. -her creatinine is 2.3 with BUN of 46. -baseline creatinine unknown -Renal ultrasound performed on 01/05/2020 that shows severe bilateral renal cortical thinning -repeat renal ultrasound ?Cortical thinning of the kidneys. No hydronephrosis. -continue with minoxidil and labetalol (6) Mixed hyperlipidemia: Code(s): E78.2 - Mixed hyperlipidemia Status: Acute Assessment and Plan: -Continue with fenofibrate and hold atorvastatin related to the elevated liver enzymes. (7) Anxiety: Code(s): F41.9 - Anxiety disorder, unspecified Status: Acute Assessment and Plan: -continue with citalopram (8) Transaminitis: Code(s): R74.01 - Elevation of levels of liver transaminase levels Status: Acute Assessment and Plan: AST/ALT 57/41 Trend labs RUQ ultrasound negative hep panel in the am (9) Frequent falls: Code(s): R29.6 - Repeated falls Status: Acute Assessment and Plan: To falls less than a month Could be related to anemia PT and OT Orthostatic blood pressures Plan Lower extremity wounds. She has weeping edema. Wound care consult was greatly be appreciated. Time Spent With Patient Time with patient: Greater than 35 minutes Subjective Date/time seen: 08/17/22 10:45 Interval history: 08/17/22 1045 Patient is very tired today. She did talk to me however was really hard to keep her aroused. She denies any chest pain, nausea, vomiting, diarrhea or constipation. She did state she was very weak. she is on oxygen this morning as well when I ask her about it
[2022-08-17] MEDS: ENOXAPARIN 30 MG/0.3 ML SYRINGE SUB-Q (11:13)
[2022-08-17 11:15] LABS: NT Pro B Type Natriuretic Pept 31600 pg/mL (5-100)
[2022-08-17 11:55] LABS: Iron 61 ug/dL (37-170)
[2022-08-17] MEDS: FUROSEMIDE INJ 40 MG/4 ML VIAL IV PUSH ×2 (11:55→17:10)
[2022-08-17 11:56] LABS: Percent Iron Saturation 21 % (20-50)
[2022-08-17 12:31] LABS: Hepatitis B Surface Antigen Negative (Negative)
[2022-08-17 12:37] LABS: HAV RESULT Negative (Negative); Hepatitis B Core IgM Result Negative (Negative)
[2022-08-17 12:48] LABS: Hepatitis C Virus Antibody Negative (Negative)
--- NOTE | 2022-08-17 13:07 | PCOTNOTE ---
Attempted to see patient this pm, however patient unable to arouse for functional OT at this time. at bedside reported I got here a little after 9 am, she was up and awake, but then she fell asleep and has been out since. They've come in with x-ray and testing, and she's slept through it all. Her lunch came, and its just been sitting there. attempted to wake patient for therapy at this time, however unsuccessful. She must be sleeping hard.
[2022-08-18] VITALS (9 sets, daily range): BP systolic 104–145; BP diastolic 47–68; PULSE 62–76; RESP 16–20; TEMP 36.6–37.3; O2SAT 96–100
[2022-08-18] MEDS: LABETALOL HCL 100 MG TABLET 200 MG PO ×2 (09:34→21:56)
[2022-08-18] MEDS: minoxidiL 2.5 MG TABLET PO ×2 (09:34→21:56)
[2022-08-18] MEDS: CITALOPRAM HYDROBROMIDE 20 MG TABLET PO (09:36)
[2022-08-18] MEDS: FENOFIBRATE,MICRONIZED 48 MG TABLET PO (09:36)
[2022-08-18] MEDS: ISOSORBIDE MONONITRATE 60 MG TAB.ER.24H PO (09:36)
[2022-08-18] MEDS: ENOXAPARIN 30 MG/0.3 ML SYRINGE SUB-Q (09:37)
[2022-08-18] MEDS: ASPIRIN 81 MG CHEWABLE TABLET PO (09:37)
[2022-08-18] MEDS: FUROSEMIDE INJ 40 MG/4 ML VIAL IV PUSH (09:37)
--- NOTE | 2022-08-18 10:15 | PM.IMPN ---
Progress Note: A&P Assessment and Plan (1) CHF (congestive heart failure): Code(s): I50.9 - Heart failure, unspecified Status: Acute Assessment and Plan: Oxygen demand better on room air Echo from 01/03/22 showed EF of >70% and some diastolic dysfunction Lasix 40mg IV BID, switched to 40mg pO BNP 82120 It appears to be an acute on chronic diastolic heart failure exacerbation Watch renal function as she does have chronic failure Chest xray mild pulmonary edema Echo EF of 60-65% with grade 1 diastolic dysfunction Trend urine output Daily weights Adjust therapy as indicated (2) Anemia: Code(s): D64.9 - Anemia, unspecified Status: Acute Assessment and Plan: -Current H/H 7.01/31. -Dr. Benavides has been consulted. -colonoscopy on 03/22/2022 found to have internal hemorrhoids and polyps. -1 unit of packed red blood cells 08/15/22 -transfuse as necessary. -large hematoma on the right upper arm could be related to her blood loss. -not on any anticoagulation due to multiple falls. -stool for occult blood was negative -May consider Hematology consult. -This appears to be anemia of chronic disease, could also be from [place] [address] -Renal function does seem to be labile and was recently 4.5-4.99 -Anemia Labs (3) Hematoma: Code(s): T14.8XXA - Other injury of unspecified body region, initial encounter Status: Acute Assessment and Plan: -the patient has a large right hematoma to right upper arm. -the patient is on an aspirin. But she is not on any anticoagulation. (4) CVA (cerebral vascular accident): Code(s): I63.9 - Cerebral infarction, unspecified Status: Acute Assessment and Plan: -history of CVA and she has had multiple falls. -PT OT evaluation greatly be appreciated. -the patient does get physical therapy at home as well as home health. -head CT showed chronic right frontal lobe and bilateral ophthalmic infarcts (5) Hypertensive chronic kidney disease with stage 1 through stage 4 chronic kidney disease, or unspecified chronic kidney disease: Code(s): I12.9 - Hypertensive chronic kidney disease with stage 1 through stage 4 chronic kidney disease, or unspecified chronic kidney disease Status: Acute Assessment and Plan: -avoid any nephrotoxic medication. -her creatinine is 2.6 with BUN of 53. -baseline creatinine unknown -Renal ultrasound performed on 01/05/2020 that shows severe bilateral renal cortical thinning -repeat renal ultrasound ?Cortical thinning of the kidneys. No hydronephrosis. -continue with minoxidil and labetalol (6) Mixed hyperlipidemia: Code(s): E78.2 - Mixed hyperlipidemia Status: Acute Assessment and Plan: -Continue with fenofibrate and hold atorvastatin related to the elevated liver enzymes. (7) Anxiety: Code(s): F41.9 - Anxiety disorder, unspecified Status: Acute Assessment and Plan: -continue with citalopram (8) Transaminitis: Code(s): R74.01 - Elevation of levels of liver transaminase levels Status: Acute Assessment and Plan: AST/ALT 41/37, continues to trend down Trend labs RUQ ultrasound negative hep panel negative (9) Frequent falls: Code(s): R29.6 - Repeated falls Status: Acute Assessment and Plan: To falls less than a month Could be related to anemia PT and OT Orthostatic blood pressures Time Spent With Patient Time with patient: Greater than 35 minutes Subjective Date/time seen: 08/18/22 1015 Interval history: 08/18/22 1015 Patient was sitting in the chair. She stated that she felt pretty okay. She denied any chest pain, shortness of breath, nausea, vomiting, diarrhea, constipation. Edema on the bilateral lower extremities to look better. She said she is eati
[2022-08-18 12:03] LABS: Basophils Percent Auto 0.3 % (0.2-1.2); Eosinophils Absolute Auto 0.2 K/mm3 (0-0.3); Eosinophils Percent Auto 2.1 % (0-4.4); Hematocrit 23.9 % (37.0-47.0); Hemoglobin 7.3 g/dL (12.0-15.0); Immature Granulocyte Absolute 0.11 K/mm3 (0.00-0.031); Immature Granulocyte Percent A 1.5 % (0-0.5); Lymphocytes Absolute Auto 0.43 K/mm3 (0.9-3.2); Lymphocytes Percent Auto 5.7 % (18.3-44.2); Mean Corpuscular HGB Conc 30.5 g/dl (32-36); Mean Corpuscular Hemoglobin 29.6 pg (26-34); Mean Corpuscular Volume 96.8 fl (80-100); Mean Platelet Volume 11.1 fl (7.4-10.4); Monocytes Absolute Auto 0.6 K/mm3 (0.1-0.6); Monocytes Percent Auto 8.1 % (2.6-8.5); Neutrophils Absolute Auto 6.2 K/mm3 (1.3-6.7); Neutrophils Percent Auto 82.3 % (45.5-73.1); Platelet Count Result 141 k/mm3 (150-375); Red Blood Count 2.47 M/mm3 (4.2-5.4); Red Cell Distribution Width 17.2 % (11.5-14.5); White Blood Count 7.5 K/mm3 (4.5-10.0)
[2022-08-18 12:25] LABS: Alanine Aminotransferase 37 U/L (6-35); Albumin Level 3.4 g/dL (3.5-5.1); Alkaline Phosphatase 21 U/L (38-126); Anion Gap 6 mmol/L (8-16); Aspartate Amino Transferase 41 U/L (14-36); Bilirubin,Total 1.3 mg/dL (0.2-1.3); Blood Urea Nitrogen 53 mg/dL (7-17); Calcium 8.8 mg/dL (8.4-10.2); Carbon Dioxide 26 mmol/L (22-30); Chloride 109 mmol/L (98-107); Estimated CRCL calculation 18 ml/min; Estimated Glomerular Filt Rate 18; Glucose 189 mg/dL (65-110); Potassium 3.5 mmol/L (3.4-5.0); Sodium 141 mmol/L (137-145)
[2022-08-19] VITALS (8 sets, daily range): BP systolic 127–142; BP diastolic 45–58; PULSE 63–70; RESP 16–20; TEMP 35.9–37.6; O2SAT 93–99
[2022-08-19 06:45] LABS: Basophils Percent Auto 0.3 % (0.2-1.2); Eosinophils Absolute Auto 0.2 K/mm3 (0-0.3); Eosinophils Percent Auto 2.9 % (0-4.4); Hematocrit 22.2 % (37.0-47.0); Immature Granulocyte Absolute 0.09 K/mm3 (0.00-0.031); Immature Granulocyte Percent A 1.3 % (0-0.5); Immature Platelet Fraction Pct 3.1 % (0.9-11.2); Lymphocytes Absolute Auto 0.74 K/mm3 (0.9-3.2); Lymphocytes Percent Auto 10.7 % (18.3-44.2); Mean Corpuscular HGB Conc 31.5 g/dl (32-36); Mean Corpuscular Hemoglobin 29.3 pg (26-34); Mean Corpuscular Volume 92.9 fl (80-100); Mean Platelet Volume 10.8 fl (7.4-10.4); Monocytes Absolute Auto 0.7 K/mm3 (0.1-0.6); Neutrophils Absolute Auto 5.2 K/mm3 (1.3-6.7); Neutrophils Percent Auto 74.8 % (45.5-73.1); Platelet Count Result 130 k/mm3 (150-375); Red Blood Count 2.39 M/mm3 (4.2-5.4); Red Cell Distribution Width 17.3 % (11.5-14.5); White Blood Count 6.9 K/mm3 (4.5-10.0)
[2022-08-19 07:01] LABS: Alanine Aminotransferase 32 U/L (6-35); Albumin Level 3.1 g/dL (3.5-5.1); Anion Gap 8 mmol/L (8-16); Aspartate Amino Transferase 33 U/L (14-36); Bilirubin,Total 1.3 mg/dL (0.2-1.3); Blood Urea Nitrogen 48 mg/dL (7-17); Calcium 8.7 mg/dL (8.4-10.2); Carbon Dioxide 30 mmol/L (22-30); Chloride 106 mmol/L (98-107); Estimated CRCL calculation 19 ml/min; Estimated Glomerular Filt Rate 19; Glucose 115 mg/dL (65-110); Magnesium 1.9 mg/dL (1.6-2.3); Potassium 2.9 mmol/L (3.4-5.0); Sodium 144 mmol/L (137-145)
[2022-08-19 07:09] LABS: Alkaline Phosphatase < 20 U/L (38-126)
[2022-08-19] MEDS: ASPIRIN 81 MG CHEWABLE TABLET PO (09:05)
[2022-08-19] MEDS: FENOFIBRATE,MICRONIZED 48 MG TABLET PO (09:05)
[2022-08-19] MEDS: ENOXAPARIN 30 MG/0.3 ML SYRINGE SUB-Q (09:05)
[2022-08-19] MEDS: FUROSEMIDE 40 MG TABLET PO (09:05)
[2022-08-19] MEDS: ISOSORBIDE MONONITRATE 60 MG TAB.ER.24H PO (09:05)
[2022-08-19] MEDS: minoxidiL 2.5 MG TABLET PO ×2 (09:05→19:56)
[2022-08-19] MEDS: CITALOPRAM HYDROBROMIDE 20 MG TABLET PO (09:05)
[2022-08-19] MEDS: LABETALOL HCL 100 MG TABLET 200 MG PO ×2 (09:05→19:57)
[2022-08-19] MEDS: POTASSIUM CHLORIDE 20 MEQ PACKET (FOR LIQUID) 40 MEQ PO (10:54)
--- NOTE | 2022-08-19 13:53 | PM.CNNEP ---
Assessment and Plan Assessment and plan (1) Chronic kidney disease, stage 4 (severe): Code(s): N18.4 - Chronic kidney disease, stage 4 (severe) Status: Chronic Assessment and Plan: this has been present as far back as 2016 creatinie had been running 1.6 - 2.1mg/dl however, more recently, creatinine has been a bit higher (due to an element of disease progression and recent diuresis) etiology suspected to be due to hypertension, vascular disease, and age (2) Hypokalemia: Code(s): E87.6 - Hypokalemia Status: Acute Assessment and Plan: due to diuresis and possibly poor oral intake replete PRN and may need chronic supplementation check magnesium intermittently (3) CHF (congestive heart failure): Code(s): I50.9 - Heart failure, unspecified Status: Chronic Assessment and Plan: acute on chronic diastolic heart failure exacerbation diuresis daily weights follow I/Os (4) Anemia: Code(s): D64.9 - Anemia, unspecified Status: Chronic Assessment and Plan: no evidence of GI loss hematoma may be contributing suspect a component of CKD playing a role empirically dose with Epogen today check iron studies will likely need outpatient follow-up with Hematology for Epogen/Aranesp injections Discussed case with Lazaro Madison, JOHANNA Will continue to follow. History of Present Illness Reason for Consult Consult date: 08/19/22 Reason for consult: chronic renal failure and Other (anemia) Chief Complaint Chief complaint: anemia History of Present Illness Narrative: The patient is a 72-year-old female with a past medical history as outlined below who presented to [facility] Emergency room after sustaining a fall. Apparently, on the day of admission, the patient fell on the ground in front of her . When she apparently woke up there was a large hematoma on her right upper arm. The patient cannot tell if she had any symptoms of dizziness or lightheaded or chest pain prior to or after the fall. She denies any headache or any other neurological symptoms following the fall as well. Nonetheless, given the size of hematoma but, her brought her to the ER for further evaluation Workup and evaluate emergency room Sarah and the patient be he would have the stable if not hypertensive. Room 18 blood test demonstrated labs consistent with her known history of chronic kidney but her CBC was significant for anemia with her hemoglobin being 6.9 hematocrit 22.5. Given her constellation of symptoms as mentioned above along with the a for mentioned laboratory findings, she was admitted the hospital for further evaluation and therapy Since her admission, she did receive a packed red blood cell transfusion with improvement in her hemoglobin hematocrit however labs done this morning show that her hemoglobin hematocrit has fallen once again. Her renal function has been relatively stable during this hospital stay with adjustment in her diuretics to maintain stability. Renal consultation was requested due to her chronic kidney disease. The patient has seen Dr. Michael before in the past with regard to her chronic kidney disease. I believe he saw her in 2019 for initial evaluation of this issue and it was felt that her diabetes and hypertension along with vascular disease with the main culprits with regard to the etiology of her chronic kidney disease. However, it would seem that she failed to follow up with him after that initial office visit. Her renal function has fluctuated and she did have a bout of acute kidney injury around the same time that she had a CVA which apparently resolved with just IV fluid hydration and holding her ARB therapy. In any case, her creatinine has been running a bit higher since his hospitalization although the likelihood is that she has had some progression of chronic kidney disease possibly worsened by the use of more aggressi
--- NOTE | 2022-08-19 14:00 | PM.IMPN ---
Progress Note: A&P Assessment and Plan (1) CHF (congestive heart failure): Code(s): I50.9 - Heart failure, unspecified Status: Acute Assessment and Plan: Oxygen demand better on room air Echo from 01/03/22 showed EF of >70% and some diastolic dysfunction Lasix 40mg IV BID, switched to 40mg pO BNP 96892 It appears to be an acute on chronic diastolic heart failure exacerbation Watch renal function as she does have chronic failure Chest xray mild pulmonary edema Echo EF of 60-65% with grade 1 diastolic dysfunction Trend urine output Daily weights Adjust therapy as indicated (2) Anemia: Code(s): D64.9 - Anemia, unspecified Status: Acute Assessment and Plan: -Current H/H 7.0.2 -Dr. Benavides has been consulted. -colonoscopy on 03/22/2022 found to have internal hemorrhoids and polyps. -1 unit of packed red blood cells 08/15/22 -transfuse as necessary. -large hematoma on the right upper arm could be related to her blood loss. -not on any anticoagulation due to multiple falls. -stool for occult blood was negative -May consider Hematology consult. -This appears to be anemia of chronic disease, could also be from [place] [address] -Renal function does seem to be labile and was recently 4.5-4.99 -Anemia Labs -Consulted Dr. Dejesus and Dr. Granados as this appears to be more of an anemia of chronic disease (3) Hematoma: Code(s): T14.8XXA - Other injury of unspecified body region, initial encounter Status: Acute Assessment and Plan: -the patient has a large right hematoma to right upper arm. -the patient is on an aspirin. But she is not on any anticoagulation. (4) CVA (cerebral vascular accident): Code(s): I63.9 - Cerebral infarction, unspecified Status: Acute Assessment and Plan: -history of CVA and she has had multiple falls. -PT OT evaluation greatly be appreciated. -the patient does get physical therapy at home as well as home health. -head CT showed chronic right frontal lobe and bilateral ophthalmic infarcts (5) Hypertensive chronic kidney disease with stage 1 through stage 4 chronic kidney disease, or unspecified chronic kidney disease: Code(s): I12.9 - Hypertensive chronic kidney disease with stage 1 through stage 4 chronic kidney disease, or unspecified chronic kidney disease Status: Acute Assessment and Plan: -avoid any nephrotoxic medication. -her creatinine is 2.5 with BUN of 48. -baseline creatinine unknown -Renal ultrasound performed on 01/05/2020 that shows severe bilateral renal cortical thinning -repeat renal ultrasound ?Cortical thinning of the kidneys. No hydronephrosis. -continue with minoxidil and labetalol (6) Mixed hyperlipidemia: Code(s): E78.2 - Mixed hyperlipidemia Status: Acute Assessment and Plan: -Continue with fenofibrate and hold atorvastatin related to the elevated liver enzymes. (7) Anxiety: Code(s): F41.9 - Anxiety disorder, unspecified Status: Acute Assessment and Plan: -continue with citalopram (8) Transaminitis: Code(s): R74.01 - Elevation of levels of liver transaminase levels Status: Acute Assessment and Plan: AST/ALT 33/32, continues to trend down Trend labs RUQ ultrasound negative hep panel negative (9) Frequent falls: Code(s): R29.6 - Repeated falls Status: Acute Assessment and Plan: To falls less than a month Could be related to anemia PT and OT Orthostatic blood pressures (10) Hypokalemia: Code(s): E87.6 - Hypokalemia Status: Acute Assessment and Plan: K is 2.9 Replaced with 40 meq Continue to trend Replace as indicated Time Spent With Patient Time with patient: Greater than 35 minutes Subjective Date/time seen: 10
[2022-08-19 17:37] LABS: Iron 45 ug/dL (37-170)
[2022-08-19 17:46] LABS: Percent Iron Saturation 17 % (20-50)
[2022-08-19] MEDS: EPOETIN ALFA-EPBX 20,000 UNITS/ML VIAL 20000 UNITS SUB-Q (18:43)
[2022-08-20 05:56] VITALS: BP 152/52; PULSE 69; RESP 18; TEMP 36.9; O2SAT 95
[2022-08-20 06:56] LABS: Folic Acid 4.7 ng/mL (2.76->20)
[2022-08-20] MEDS: ASPIRIN 81 MG CHEWABLE TABLET PO (08:08)
[2022-08-20] MEDS: CITALOPRAM HYDROBROMIDE 20 MG TABLET PO (08:08)
[2022-08-20] MEDS: minoxidiL 2.5 MG TABLET PO (08:08)
[2022-08-20] MEDS: ISOSORBIDE MONONITRATE 60 MG TAB.ER.24H PO (08:08)
[2022-08-20 08:09] VITALS: PULSE 68
[2022-08-20] MEDS: LABETALOL HCL 100 MG TABLET 200 MG PO (08:09)
[2022-08-20] MEDS: FUROSEMIDE 40 MG TABLET PO (08:09)
[2022-08-20] MEDS: ENOXAPARIN 30 MG/0.3 ML SYRINGE SUB-Q (08:09)
[2022-08-20 10:31] LABS: Alanine Aminotransferase 34 U/L (6-35); Albumin Level 3.2 g/dL (3.5-5.1); Alkaline Phosphatase 22 U/L (38-126); Anion Gap 5 mmol/L (8-16); Aspartate Amino Transferase 37 U/L (14-36); Bilirubin,Total 1.3 mg/dL (0.2-1.3); Blood Urea Nitrogen 49 mg/dL (7-17); Carbon Dioxide 32 mmol/L (22-30); Chloride 107 mmol/L (98-107); Estimated CRCL calculation 20 ml/min; Estimated Glomerular Filt Rate 21; Glucose 111 mg/dL (65-110); Magnesium 1.9 mg/dL (1.6-2.3); Sodium 144 mmol/L (137-145)
[2022-08-20] MEDS: FENOFIBRATE,MICRONIZED 48 MG TABLET PO (11:11)
[2022-08-20 11:32] LABS: Hematocrit 24.4 % (37.0-47.0); Hemoglobin 7.7 g/dL (12.0-15.0); Mean Corpuscular HGB Conc 31.6 g/dl (32-36); Mean Corpuscular Hemoglobin 29.5 pg (26-34); Mean Corpuscular Volume 93.5 fl (80-100); Platelet Count Result 170 k/mm3 (150-375); Red Blood Count 2.61 M/mm3 (4.2-5.4); Red Cell Distribution Width 17.9 % (11.5-14.5); White Blood Count 6.6 K/mm3 (4.5-10.0)
--- NOTE | 2022-08-20 13:14 | P.PNNP_ITS ---
Progress Note: A&P Assessment and Plan (1) Chronic kidney disease, stage 4 (severe): Code(s): N18.4 - Chronic kidney disease, stage 4 (severe) Status: Chronic Assessment and Plan: * this has been present as far back as 2016 * creatinine had been running 1.6 - 2.1mg/dl * however, more recently, creatinine has been a bit higher (due to an element of disease progression and recent diuresis) * etiology suspected to be due to hypertension, vascular disease, and age (2) Hypokalemia: Code(s): E87.6 - Hypokalemia Status: Acute Assessment and Plan: * resolved * due to diuresis and possibly poor oral intake * replete PRN and may need chronic supplementation * check magnesium intermittently (3) CHF (congestive heart failure): Code(s): I50.9 - Heart failure, unspecified Status: Chronic Assessment and Plan: * acute on chronic diastolic heart failure exacerbation * diuresis * daily weights * follow I/Os (4) Anemia: Code(s): D64.9 - Anemia, unspecified Status: Chronic Assessment and Plan: * no evidence of GI loss * hematoma may be contributing * suspect a component of CKD playing a role * empirically dose with Epogen yesterday * anemia studies note iron deficiency (IV iron if remains hospitalized versus oral iron if discharged) * will likely need outpatient follow-up with Hematology for Epogen/Aranesp injections Will continue to follow. Subjective Date/time seen: 08/20/22 13:14 Appears to be doing reasonably well at this time; renal function stable if not better as is H/H; reasonable urine output on oral diuretics as well; no acute complaints voiced at this this time; no apparent issues/events overnight or earlier this morning. Exam Narrative: General: WD/WN female in NAD Heart: normal S1 and S2; no rub Lungs: clear but decreased at bases Abdomen: soft, nontender, nondistended, positive bowel sounds Extremities: no cyanosis or clubbing; trace edema Skin: warm and dry; + hematoma in right arm/bicep area Objective Data Vital Signs Vital Signs: Vital Signs Temp Pulse Resp BP Pulse Ox 08/20/22 08:09 68 08/20/22 05:56 36.9 C 69 18 152/52 H 95 08/19/22 19:57 64 08/19/22 19:58 131/47 L 08/19/22 19:56 135/51 L 08/19/22 19:53 37.0 C 68 18 138/45 L 95 08/19/22 16:35 63 131/45 L 98 08/19/22 16:32 66 132/48 L 99 08/19/22 16:30 35.9 C L 64 16 142/50 H 95 Intake/Output Intake/Output: Intake & Output 08/17/22 08/18/22 08/19/22 08/20/22 23:59 23:59 23:59 23:59 Intake Total 920 1200 1020 580 Output Total 1100 2635 2128 950 Balance -180 -1435 -1405 -370 Meds/Results Medications: Active Medications Generic Name Dose Route Start Last Admin Trade Name Darwinq PRN Reason Stop Dose Admin Aspirin 81 mg 08/16/22 08:00 08/20/22 08:08 Aspirin 81 Mg Chewable Tablet PO 81 mg DAILY@0800 [facility] Administration Calcium Carbonate 500 mg 08/16/22 09:00 08/20/22 08:08 Calcium/Vitamin D 500 Mg Tablet PO 500 mg QAM JACQUI Administration Citalopram Hydrobromide 20 mg 08/16/22 09:00 08/20/22 08:08
--- NOTE | 2022-08-20 13:14 | PM.PNNEP ---
Progress Note: A&P Assessment and Plan (1) Chronic kidney disease, stage 4 (severe): Code(s): N18.4 - Chronic kidney disease, stage 4 (severe) Status: Chronic Assessment and Plan: this has been present as far back as 2016 creatinine had been running 1.6 - 2.1mg/dl however, more recently, creatinine has been a bit higher (due to an element of disease progression and recent diuresis) etiology suspected to be due to hypertension, vascular disease, and age (2) Hypokalemia: Code(s): E87.6 - Hypokalemia Status: Acute Assessment and Plan: resolved due to diuresis and possibly poor oral intake replete PRN and may need chronic supplementation check magnesium intermittently (3) CHF (congestive heart failure): Code(s): I50.9 - Heart failure, unspecified Status: Chronic Assessment and Plan: acute on chronic diastolic heart failure exacerbation diuresis daily weights follow I/Os (4) Anemia: Code(s): D64.9 - Anemia, unspecified Status: Chronic Assessment and Plan: no evidence of GI loss hematoma may be contributing suspect a component of CKD playing a role empirically dose with Epogen yesterday anemia studies note iron deficiency (IV iron if remains hospitalized versus oral iron if discharged) will likely need outpatient follow-up with Hematology for Epogen/Aranesp injections Will continue to follow. Subjective Date/time seen: 08/20/22 13:14 Appears to be doing reasonably well at this time; renal function stable if not better as is H/H; reasonable urine output on oral diuretics as well; no acute complaints voiced at this this time; no apparent issues/events overnight or earlier this morning. Exam Narrative: General: WD/WN female in NAD Heart: normal S1 and S2; no rub Lungs: clear but decreased at bases Abdomen: soft, nontender, nondistended, positive bowel sounds Extremities: no cyanosis or clubbing; trace edema Skin: warm and dry; + hematoma in right arm/bicep area Objective Data Vital Signs Vital Signs: Vital Signs Temp Pulse Resp BP Pulse Ox 08/20/22 08:09 68 08/20/22 05:56 36.9 C 69 18 152/52 H 95 08/19/22 19:57 64 08/19/22 19:58 131/47 L 08/19/22 19:56 135/51 L 08/19/22 19:53 37.0 C 68 18 138/45 L 95 08/19/22 16:35 63 131/45 L 98 08/19/22 16:32 66 132/48 L 99 08/19/22 16:30 35.9 C L 64 16 142/50 H 95 Intake/Output Intake/Output: Intake & Output 08/17/22 08/18/22 08/19/22 08/20/22 23:59 23:59 23:59 23:59 Intake Total 920 1200 1020 580 Output Total 1100 2635 2425 950 Balance -180 -1435 -1405 -370 Meds/Results Medications: Active Medications Generic Name Dose Route Start Last Admin Trade Name Darwinq PRN Reason Stop Dose Admin Aspirin 81 mg 08/16/22 08:00 08/20/22 08:08 Aspirin 81 Mg Chewable Tablet PO 81 mg DAILY@0800 JACQUI Administration Calcium Carbonate 500 mg 08/16/22 09:00 08/20/22 08:08 Calcium/Vitamin D 500 Mg Tablet PO 500 mg QAM JACQUI Administration Citalopram Hydrobromide 20 mg 08/16/22 09:00 08/20/22 08:08 Citalopram Hydrobromide 20 Mg Tablet PO 20 mg DAILY JACQUI Administration Enoxaparin Sodium 30 mg 08/17/22 09:00 08/20/22 08:09 Enoxaparin 30 Mg/0.3 Ml Syringe SUB-Q 30 mg DAILY JACQUI Administration Fenofibrate 48 mg 08/16/22 09:00 08/20/22 11:11 Fenofibrate,Micronized 48 Mg Tablet PO 48 mg QAM JACQUI Administration Furosemide 40 mg 08/19/22 09:00 08/20/22 08:09 Furosemide 40 Mg Tablet PO 40 mg DAILY JACQUI Administration Isosorbide Mononitrate 60 mg 08/16/22 09:00 08/20/22 08:08 Isosorbide Mononitrate 60 Mg Tab.Er.24h PO 60 mg DAILY JACQUI Administration Labetalol HCl 200 mg 08/15/22 21:20 08/20/22 08:09 Labetalol Hcl 100 Mg Tablet PO 200 mg Q12HR JACQUI Administration Miconazole Nitrate 1 applic 08/16/22 09:00 08/20/22 08:12 Micon
[2022-08-20 13:33] VITALS: BP 126/47
[2022-08-20 13:34] VITALS: BP 106/42; BP 113/41
[2022-08-20 13:35] VITALS: BP 126/47; PULSE 74; RESP 18; TEMP 36.4; O2SAT 97
--- NOTE | 2022-08-20 15:15 | PM.DS ---
DS: Admitting Diagnosis Discharge Date 08/20/22 1515 Admitting Diagnosis Symptomatic anemia , CHF exacerbation DS: Discharge Diagnosis Discharge Diagnosis (1) CHF (congestive heart failure): Code(s): I50.9 - Heart failure, unspecified Status: Chronic Assessment and Plan: Oxygen demand better on room air Echo from 01/03/22 showed EF of >70% and some diastolic dysfunction Lasix 40mg IV BID, switched to 40mg pO BNP 25727 It appears to be an acute on chronic diastolic heart failure exacerbation Watch renal function as she does have chronic failure Chest xray mild pulmonary edema Echo EF of 60-65% with grade 1 diastolic dysfunction Trend urine output Daily weights Adjust therapy as indicated (2) Anemia: Code(s): D64.9 - Anemia, unspecified Status: Acute Assessment and Plan: -Current H/H 7.0.2 -Dr. Benavides has been consulted. -colonoscopy on 03/22/2022 found to have internal hemorrhoids and polyps. -1 unit of packed red blood cells 08/15/22 -transfuse as necessary. -large hematoma on the right upper arm could be related to her blood loss. -not on any anticoagulation due to multiple falls. -stool for occult blood was negative -May consider Hematology consult. -This appears to be anemia of chronic disease, could also be from [place] [address] -Renal function does seem to be labile and was recently 4.5-4.99 -Anemia Labs -Consulted Dr. Dejesus and Dr. Granados as this appears to be more of an anemia of chronic disease (3) Hematoma: Code(s): T14.8XXA - Other injury of unspecified body region, initial encounter Status: Acute Assessment and Plan: -the patient has a large right hematoma to right upper arm. -the patient is on an aspirin. But she is not on any anticoagulation. (4) CVA (cerebral vascular accident): Code(s): I63.9 - Cerebral infarction, unspecified Status: Acute Assessment and Plan: -history of CVA and she has had multiple falls. -PT OT evaluation greatly be appreciated. -the patient does get physical therapy at home as well as home health. -head CT showed chronic right frontal lobe and bilateral ophthalmic infarcts (5) Hypertensive chronic kidney disease with stage 1 through stage 4 chronic kidney disease, or unspecified chronic kidney disease: Code(s): I12.9 - Hypertensive chronic kidney disease with stage 1 through stage 4 chronic kidney disease, or unspecified chronic kidney disease Status: Acute Assessment and Plan: -avoid any nephrotoxic medication. -her creatinine is 2.5 with BUN of 48. -baseline creatinine unknown -Renal ultrasound performed on 01/05/2020 that shows severe bilateral renal cortical thinning -repeat renal ultrasound ?Cortical thinning of the kidneys. No hydronephrosis. -continue with minoxidil and labetalol (6) Mixed hyperlipidemia: Code(s): E78.2 - Mixed hyperlipidemia Status: Acute Assessment and Plan: -Continue with fenofibrate and hold atorvastatin related to the elevated liver enzymes. (7) Anxiety: Code(s): F41.9 - Anxiety disorder, unspecified Status: Acute Assessment and Plan: -continue with citalopram (8) Transaminitis: Code(s): R74.01 - Elevation of levels of liver transaminase levels Status: Acute Assessment and Plan: AST/ALT 33/32, continues to trend down Trend labs RUQ ultrasound negative hep panel negative (9) Frequent falls: Code(s): R29.6 - Repeated falls Status: Acute Assessment and Plan: To falls less than a month Could be related to anemia PT and OT Orthostatic blood pressures (10) Hypokalemia: Code(s): E87.6 - Hypokalemia Status: Acute Assessment and Plan: K is 2.9 Replaced with 40 meq Continue to trend Replace as
--- NOTE | 2022-08-20 19:08 | PDONCCN ---
HPI - Date of Consult Date/Time: 08/20/22 19:08 Requesting Physician: Lemuel Pineda MD Primary Care Provider: Sabino Moore MD - Consult Narrative Reason for consult: Chronic anemia Narrative: Amelie Menjivar is a 72 year old female with history of chronic kidney stage 4 disease, stroke, hyperlipidemia and aortic stenosis came into this hospital status post multiple fall. She developed large hematoma of the right upper extremity. Her hemoglobin of 6.9 on admission. Patient had last colonoscopy in March 2022 that showed internal hemorrhoid and descending colon polyps. She denies any melena hematochezia. She denies being a vegetarian. Surprisingly she denies any excessive tiredness and fatigue. Patient received 1 unit of packed red blood cells on August 15 and now clinically feeling better. Nephrology was consulted and patient received Epogen 81090 units. Looks like she is ready to be discharged home today. Review of Systems - Review of Systems All systems reviewed & are unremarkable except as noted in HPI and bel - Neurologic Reports system reviewed and no additional complaints, except as documented, Reports hearing normal [facility] Medical History: Medical History (Last Reviewed 08/16/22 @ 07:22 by Jerry Benavides MD) Aortic stenosis Chronic kidney disease, stage 4 (severe) CVA (cerebral vascular accident) Hypertensive chronic kidney disease with stage 1 through stage 4 chronic kidney disease, or unspecified chronic kidney disease Mixed hyperlipidemia SDH (subdural hematoma) Surgical History: Surgical History (Last Reviewed 08/16/22 @ 07:22 by Jerry Benavides MD) Ganglion cyst s/p excision from left wrist S/P TAVR (transcatheter aortic valve replacement) Family History: Family History (Last Reviewed 08/16/22 @ 07:22 by Jerry Benavides MD) Father Family history of coronary artery disease Diabetes mellitus - Social History Social History: Social History (Last Reviewed 08/16/22 @ 07:22 by Jerry Benavides MD) Gender Identity: Gender identity (if verbalized by the patient): Female Alcohol Use: Alcohol intake: never Substance Use: Substance use: never Substance use type: does not use Others: Spiritual care concerns: No Smoking Status: Smoking status: Former smoker Second hand tobacco smoke exposure: No Smoking Pack-years: Smoking packs per day: 2 Smoking cigarettes per day: 40.0 Years smoked: 13 Smoking pack-years: 26.00 Exam - Vital Signs Vital Signs - 24 hr 08/19/22 19:53 08/19/22 19:56 08/19/22 19:58 Temperature 37.0 C Pulse Rate 68 Respiratory Rate 18 Blood Pressure 138/45 L 135/51 L 131/47 L Pulse Oximetry 95 08/19/22 19:57 08/20/22 05:56 08/20/22 08:09 Temperature 36.9 C Pulse Rate 64 69 68 Respiratory Rate 18 Blood Pressure 152/52 H Pulse Oximetry 95 08/20/22 13:33 08/20/22 13:35 08/20/22 13:34 Temperature 36.4 C Pulse Rate 74 Respiratory Rate 18 Blood Pressure 126/47 L 126/47 L 113/41 L Pulse Oximetry 97 08/20/22 13:34 Temperature Pulse Rate Respiratory Rate Blood Pressure 106/42 L Pulse Oximetry - Exam HEENT: EOMI, PERRLA Neck: supple. No: JVD Lungs: clear to auscultation, normal air movement Heart: no murmurs, gallops, or rubs, regular rhythm, regular rate Abdomen: abdomen soft, non-distended, normal bowel sounds Extremities: normal pulses Integumentary: no abnormalities Neurological: normal speech Psychological: mental status NL, mood NL - Lab Results Laboratory Last Values WBC 6.6 K/mm3 (4.5-10.0) 08/20/22 11:24 RBC 2.61 M/mm3 (4.2-5.4) L 08/20/22 11:24 Hgb 7.7 g/dL (12.0-15.0) L 08/20/22 11:24 Hct 24.4 % (37.0-47.0) L 08/20/22 11:24 MCV 93.5 fl (80-100) 08/20/22 11:24 MCH 29.5 pg (26-34) 08/20/22 11:24 MCHC 31.6 g/dl (32-36) L 08/20/22 11:24 RDW 17.9 % (11.5-14.5) H
== END 2022-08-20 16:45 | disposition home health service (06) | DRG 682 ==
LOC: ANHED 15:14 → ANH3MEDSUR 16:00 → ANH3MED 18:11
PROVIDERS: Internal Medicine Nephrology; Nurse Practitioner; Admitting Provider Internal Medicine; Emergency Provider Emergency Medicine; PCP Family Medicine; Visit Provider Nurse Practitioner
DX: I12.9 Hypertensive chronic kidney disease with stage 1 through stage 4 chronic kidney disease, or unspecified chronic kidney disease (principal); I50.33 Acute on chronic diastolic (congestive) heart failure; N18.4 Chronic kidney disease, stage 4 (severe); E78.2 Mixed hyperlipidemia; F41.9 Anxiety disorder, unspecified; I35.0 Nonrheumatic aortic (valve) stenosis; R29.6 Repeated falls; D63.1 Anemia in chronic kidney disease; D50.8 Other iron deficiency anemias; E87.6 Hypokalemia; T50.2X5A Adverse effect of carbonic-anhydrase inhibitors, benzothiadiazides and other diuretics, initial encounter; S40.021A Contusion of right upper arm, initial encounter; W18.30XA Fall on same level, unspecified, initial encounter; R74.01 Elevation of levels of liver transaminase levels; Z86.79 Personal history of other diseases of the circulatory system; Z86.010 Personal history of colon polyps; Z86.73 Personal history of transient ischemic attack (TIA), and cerebral infarction without residual deficits; Z95.2 Presence of prosthetic heart valve; Z87.891 Personal history of nicotine dependence; Z79.82 Long term (current) use of aspirin
CPT/HCPCS: 36415; 36430; 70450; 71045; 73060; 76705; 76775; 80053; 80074; 82274; 82607; 82728; 82746; 83540; 83550; 83605; 83735; 83880; 84443; 84466; 85014; 85018; 85025; 85027; 85055; 85610; 85730; 86850; 86900; 86901; 86920; 93005; 93306; 93970; 94762; 96372; 96374; 97110; 97116; 97161; 97166; 97530; 97535; 99285; A9270; G0378; J1650; J1940; J7050; P9016; Q5105

== ENCOUNTER 2022-09-04 11:51 | Outpatient (RCR) | payer MEDICARE, SELFPAY ==
[2022-09-04 13:03] VITALS: BMI 33.7
== END 2022-11-19 13:22 | disposition home or self-care (01) ==
LOC: ANHWOC 11:51
PROVIDERS: PCP Family Medicine; Visit Provider Nurse Practitioner Family
DX: L98.9 Disorder of the skin and subcutaneous tissue, unspecified (principal)
CPT/HCPCS: 29581

== ENCOUNTER 2022-09-05 07:32 | Outpatient (RCR) | payer MEDICARE, SELFPAY ==
[2022-09-04 12:20] LABS: Hematocrit 23.6 % (37.0-47.0); Hemoglobin 7.3 g/dL (12.0-15.0)
[2022-09-05] VITALS (11 sets, daily range): BP systolic 120–176; BP diastolic 47–99; PULSE 65–71; RESP 16–20; TEMP 36.3–37.2; O2SAT 96–99
[2022-09-05] MEDS: diphenhydrAMINE HCl CAP 25 MG CAPSULE 50 MG PO (08:27)
[2022-09-05] MEDS: ACETAMINOPHEN 325 MG TABLET 650 MG PO (08:28)
[2022-09-05] MEDS: SODIUM CHLORIDE 0.9% IV 250 ML 100 ML IV CONT (08:32)
--- NOTE | 2022-09-05 10:47 | PC.NURSE ---
Pt resting comfortably in bed, VSS, NAD noted, side rails up x 2 call light within reach. at bedside, blood infusing without difficulty.
--- NOTE | 2022-09-05 11:45 | PC.NURSE ---
A second set of VSS was entered under the wrong time at 0920. The VSS were meant to be entered under the 1020 column causing the 1120 VSS to be entered under the 1020 time. VSS were checked and documented at the appropriate times but there was an error in entering. Pt resting comfortably, NAD noted, blood transfusing without difficulty, continue to monitor.
[2022-09-05] MEDS: FUROSEMIDE INJ 40 MG/4 ML VIAL 20 MG IV PUSH (12:57)
--- NOTE | 2022-09-05 14:29 | PC.NURSE ---
Pt up to toilet with loreta steady, voided and returned to bed without difficulty. Blood transfusing, continue to monitor.
--- NOTE | 2022-09-05 16:50 | PC.NURSE ---
Pt up to restroom and voided, blood infused without difficulty. Transfusion reaction signs and symptoms reviewed and handout given to pt and . VSS, NAD noted, IV removed without difficulty, pt discharged home with , taken out in wheelchair.
== END 2022-12-03 23:59 | disposition home or self-care (01) ==
LOC: ANHCPCTRAN 07:32
PROVIDERS: PCP Family Medicine; Visit Provider Family Medicine
DX: D64.9 Anemia, unspecified (principal)
CPT/HCPCS: 36415; 36430; 85014; 85018; 86850; 86900; 86901; 86923; A9270; J1940; J7050; P9016

== ENCOUNTER → 2022-10-09 11:41 | Outpatient (CLI) | payer MEDICARE, SELFPAY ==
--- NOTE | ~2022-10-09 | XR_ITS ---
EXAM: XR elbow RT 2V DATE: 10/09/2022 11:50 HISTORY: fall 3 days ago pain posterior elbow . COMPARISON: . FINDINGS: Normal mineralization. No fracture or dislocation. No lytic or blastic lesion. Joint space s are maintained. No erosion or periosteal change. Upper arm subcutaneous edema. 6.5 cm soft tissue m ass in posterior upper arm subcutaneous fat, stable given interval differences in technique and posit ioning. IMPRESSION: Presumed hematoma in the posterior arm soft tissues, stable since 08/15/22. New acute osse ous finding in the right elbow Reviewed, dictated and finalized at location K. H COLLECTOR IMPRESSION: Presumed hematoma in the posterior arm soft tissues, stable since 1 . New acute osseous finding in the right elbow
== END ==
PROVIDERS: PCP Family Medicine; Visit Provider Family Medicine
DX: M25.521 Pain in right elbow (principal); S59.901A Unspecified injury of right elbow, initial encounter
CPT/HCPCS: 73070

== ENCOUNTER 2023-11-27 10:57 | Outpatient (CLI) | payer MEDICARE, SELFPAY ==
[2023-11-27 11:17] LABS: Basophils Absolute Auto 0.1 K/mm3 (0.0-0.1); Basophils Percent Auto 0.6 % (0.2-1.2); Eosinophils Absolute Auto 0.3 K/mm3 (0-0.3); Eosinophils Percent Auto 3.7 % (0-4.4); Hematocrit 30.3 % (37.0-47.0); Hemoglobin 10.1 g/dL (12.0-15.0); Immature Granulocyte Absolute 0.04 K/mm3 (0.00-0.031); Immature Granulocyte Percent A 0.5 % (0-0.5); Lymphocytes Absolute Auto 0.96 K/mm3 (0.9-3.2); Lymphocytes Percent Auto 11.5 % (18.3-44.2); Mean Corpuscular HGB Conc 33.3 g/dl (32-36); Mean Corpuscular Hemoglobin 29.7 pg (26-34); Mean Corpuscular Volume 89.1 fl (80-100); Mean Platelet Volume 9.5 fl (7.4-10.4); Monocytes Absolute Auto 0.8 K/mm3 (0.1-0.6); Monocytes Percent Auto 8.9 % (2.6-8.5); Neutrophils Absolute Auto 6.3 K/mm3 (1.3-6.7); Neutrophils Percent Auto 74.8 % (45.5-73.1); Platelet Count Result 220 k/mm3 (150-375); Red Cell Distribution Width 13.8 % (11.5-14.5); White Blood Count 8.4 K/mm3 (4.5-10.0)
[2023-11-27 11:22] LABS: Blood Urea Nitrogen 39 mg/dL (8-26); Carbon Dioxide 24 mmol/L (22-30); Chloride 106 mmol/L (98-109); Estimated Glomerular Filt Rate 28; Glucose 147 mg/dL (70-105); Ionized Calcium (POC) 1.17 mmol/L (1.11-1.31); Potassium 3.7 mmol/L (3.5-4.9); Sodium 143 mmol/L (138-146)
== END 2023-11-27 10:58 | disposition home or self-care (01) ==
LOC: ANHLAB 10:59
PROVIDERS: PCP Family Medicine; Visit Provider Internal Medicine Hematology & Oncology
DX: D63.8 Anemia in other chronic diseases classified elsewhere (principal)
CPT/HCPCS: 36415; 80047; 85025

== ENCOUNTER 2024-04-14 11:30 | Outpatient (CLI) | payer MEDICARE, SELFPAY ==
--- NOTE | ~2024-04-14 | XR_ITS ---
3 VIEWS LUMBAR SPINE Ordering provider: Sabino Moore MD History: . M54.50 - Low back pain, unspecified . Comparison: None. FINDINGS: VERTEBRAL BODIES:Dextroscoliosis is noted. Minimal anterolisthesis seen at the level of L5-S1. Retrol isthesis seen at the level of L1-L2. Minimal anterior volume loss is seen in T12 and L1. No definite visible fracture or subluxation. Oblique lucency is seen projected over L3 and the lateral view. If t enderness in the area is present. CT is advised. DISK SPACES: Degenerative disc disease seen at all levels. Multilevel facet degenerative disease. SOFT TISSUES: Periarticular calcifications seen. Sacroiliac joints show mild osteoarthritic changes. IMPRESSION: No definite acute osseous abnormality lumbar spine. Oblique lucency is seen projected over L3 in the lateral view. If tenderness in the area is present. CT is advised. Consider follow up MRI lumbar spine if there is concern for spinal stenosis/neural impingement. Reviewed, dictated and finalized at location A. IMPRESSION: No definite acute osseous abnormality lumbar spine. Oblique lucency is seen pro jected over L3 in the lateral view. If tenderness in the area is present. CT is advised. Consider follow up MRI lumbar spine if there is concern for spinal stenosis/marcia ral impingement.
== END 2024-04-14 11:31 ==
LOC: MICIMG 11:33
PROVIDERS: PCP Family Medicine; Visit Provider Family Medicine
DX: G89.29 Other chronic pain (principal); M54.50 Low back pain, unspecified
CPT/HCPCS: 72100

== ENCOUNTER 2024-05-06 13:39 | Outpatient (CLI) | payer MEDICARE, SELFPAY ==
--- NOTE | ~2024-05-06 | CT_ITS ---
EXAMINATION: CT lumbar spine wo con DATE: 05/06/2024 14:01 INDICATION: Low back pain, unspecified. TECHNIQUE: Computed tomography (CT) of the lumbar spine was performed without intravenous contrast. A utomated exposure control and iterative reconstruction technique were employed. The dose-length produ ct was 1039.37 mGy-cm. COMPARISON: Lumbar spine radiograph 04/14/2024 FINDINGS: There is 6 degrees levocurvature of lumbar spine. There is 3 mm retrolisthesis of L1 on L2 and L2 on L3 and 3 mm anterolisthesis of L5 on S1. There is mild chronic anterior wedging of T11-L1 v ertebral bodies. There is severely decreased disc height from L1-L2 through L5-S1. The following disc levels are specifically discussed: L1-L2: The disc is bulging. There is moderate right and mild left facet joint osteoarthritis. There i s mild bilateral neural foraminal stenosis. There is mild central canal stenosis. L2-L3: The disc is bulging. There is mild bilateral facet joint osteoarthritis. There is mild bilater al neural foraminal stenosis. There is mild central canal stenosis. L3-L4: The disc is bulging. There is severe right and moderate left facet joint osteoarthritis. There is mild bilateral neural foraminal stenosis. There is mild central canal stenosis. L4-L5: The disc is bulging. There is severe bilateral facet joint osteoarthritis. There is moderate b ilateral neural foraminal stenosis. There is mild central canal stenosis. L5-S1: The disc is bulging. There is severe bilateral facet joint osteoarthritis. There is moderate r ight and mild left neural foraminal stenosis. There is mild central canal stenosis. IMPRESSION: 1. Severe lumbar spondylosis. Reviewed, dictated and finalized at location A.
== END 2024-05-06 13:40 | disposition home or self-care (01) ==
LOC: ANHIMG 13:39
PROVIDERS: PCP Family Medicine; Visit Provider Family Medicine
DX: M43.06 Spondylolysis, lumbar region (principal); M89.9 Disorder of bone, unspecified; G89.29 Other chronic pain
CPT/HCPCS: 72131

== ENCOUNTER 2024-06-02 10:22 | Outpatient (CLI) | payer MEDICARE, SELFPAY ==
[2024-06-02 10:45] LABS: Basophils Percent Auto 0.6 % (0.2-1.2); Eosinophils Absolute Auto 0.4 K/mm3 (0-0.3); Eosinophils Percent Auto 5.4 % (0-4.4); Hematocrit 30.8 % (37.0-47.0); Hemoglobin 9.6 g/dL (12.0-15.0); Immature Granulocyte Absolute 0.04 K/mm3 (0.00-0.031); Immature Granulocyte Percent A 0.6 % (0-0.5); Lymphocytes Percent Auto 18.2 % (18.3-44.2); Mean Corpuscular HGB Conc 31.2 g/dl (32-36); Mean Corpuscular Hemoglobin 28.6 pg (26-34); Mean Corpuscular Volume 91.7 fl (80-100); Monocytes Absolute Auto 0.7 K/mm3 (0.1-0.6); Monocytes Percent Auto 10.6 % (2.6-8.5); Neutrophils Absolute Auto 4.3 K/mm3 (1.3-6.7); Neutrophils Percent Auto 64.6 % (45.5-73.1); Platelet Count Result 202 k/mm3 (150-375); Red Blood Count 3.36 M/mm3 (4.2-5.4); Red Cell Distribution Width 13.9 % (11.5-14.5); White Blood Count 6.6 K/mm3 (4.5-10.0)
[2024-06-02 11:56] LABS: Anion Gap 9 mmol/L (4-12); Blood Urea Nitrogen 32 mg/dL (7-17); Calcium 8.5 mg/dL (8.4-10.2); Carbon Dioxide 30 mmol/L (22-30); Chloride 99 mmol/L (98-107); Estimated Glomerular Filt Rate 23; Glucose 101 mg/dL (65-110); Potassium 4.1 mmol/L (3.4-5.0); Sodium 138 mmol/L (137-145)
[2024-06-02 13:00] LABS: Folic Acid 4.9 ng/mL (2.76->20); Vitamin B12 > 1000.0 pg/mL (239-931)
[2024-06-02 13:16] LABS: Iron 50 ug/dL (37-170)
[2024-06-02 13:31] LABS: Percent Iron Saturation 24 % (20-50)
== END 2024-06-02 10:23 | disposition home or self-care (01) ==
LOC: ANHLAB 10:24
PROVIDERS: PCP Family Medicine; Visit Provider Internal Medicine Hematology & Oncology
DX: N18.9 Chronic kidney disease, unspecified (principal); D63.8 Anemia in other chronic diseases classified elsewhere
CPT/HCPCS: 36415; 80048; 82607; 82728; 82746; 83540; 83550; 85025

== ENCOUNTER 2024-11-30 15:58 | Emergency (ER) | payer MEDICARE, SELFPAY ==
--- NOTE | ~2024-11-30 | CT_ITS ---
EXAMINATION: CT brain wo con DATE: 11/30/2024 16:37 INDICATION: Head injury. TECHNIQUE: Computed tomography (CT) of the head was performed without intravenous contrast. The mA wa s adjusted according to patient size. Iterative reconstruction technique was employed. The dose-lengt h product was 681.00 mGy-cm. COMPARISON: Head CT 08/15/2022 FINDINGS: There are old lacunar infarcts in the bilateral basal ganglia and thalami. There are scatte red areas of low attenuation in the cerebral white matter. There is an old infarct in right frontal l obe. There is an old infarct in right cerebellum. There is no intracranial hemorrhage, acute infarcti on, or abnormal intracranial mass lesion. The ventricles are normal in size. There is complete opacif ication of the left maxillary and anterior ethmoid sinuses. The mastoid air cells are normal. There a re likely changes of ocular lens replacement surgeries. There is left frontal scalp soft tissue swell ing. IMPRESSION: 1. Multiple old infarcts in the brain. 2. Stable moderate nonspecific cerebral white matter disease, which likely represents chronic small v essel ischemic disease. Reviewed, dictated and finalized at location B. RNAL CONTROL SPECIALIST IMPRESSION: 1. Multiple old infarcts in the brain. 2. Stable moderate nonspecific cerebral white matter disease, which likely repr esents chronic small vessel ischemic disease.
[2024-11-30 16:00] VITALS: BP 193/53; PULSE 63; RESP 16; TEMP 36.7; O2SAT 96
--- NOTE | 2024-11-30 16:15 | ED.HEATRA ---
HPI - Head Injury General Chief complaint: Head Injury <Philomena Rogers MEMO SmithN - Last Filed: 11/30/24 16:41> Stated complaint: HI <Philomena Rogers BILLIE Smith - Last Filed: 11/30/24 16:41> Time Seen by Provider: 11/30/24 16:10 <Philomena L. MEMO SmithN - Last Filed: 11/30/24 16:41> Focused HPI: Patient is a 74-year-old female who presents to the ER fall approximately 30 minutes prior to arrival. She reports she was going down ?2 stairs ? when she fell forward and landed on the top of her forehead. Patient does not think she put either hands out to stop her fall. She denies any pain or loss of consciousness. Patient reports her head made contact with concrete on the ground. She denies use blood thinners but does take a daily aspirin. Patient reports a history of cardiac valve replacement. GENERAL: Well-appearing, well-nourished, and in no acute distress. HEAD: Normocephalic. Laceration to mid forehead, continuing to ooze blood. CHEST: Clear to auscultation. ?No respiratory distress. HEART: Regular rate and rhythm.? NEURO: ?Alert and oriented x3. Patient screened in triage and initial orders placed.? ?Additional care and disposition to be based upon?diagnostic testing and treatment. <Philomenapa Smith APRN - Last Filed: 11/30/24 16:41> Source: patient <Aniceto Lal PA-C - Last Filed: 11/30/24 19:11> Mode of arrival: wheelchair <Aniceto Lal PA-C - Last Filed: 11/30/24 19:11> Limitations: no limitations <CHRISTOPHER Cerda Last Filed: 11/30/24 19:11> History of Present Illness HPI Narrative: Agree with triage note above. Patient denies any preceding chest pain, dizziness, shortness of breath. States that due to the eye dilation that she had this morning and not going out to the garage very often, she stumbled on the stairs. Denies any further site of injury, numbness, weakness. <Aniceto Lal PA-C - Last Filed: 11/30/24 19:11> Related Data Home medications: Home Medications ?Medication ?Instructions ?Recorded ?Confirmed ?Last Taken ?Type Calcium 600 + D(3) 600 mg PO DAILY 10/13/21 11/05/24 03/21/22 History aspirin 81 mg tablet 81 mg PO DAILY 10/13/21 11/05/24 08/14/22 09:00 History isosorbide mononitrate 60 mg 30 mg PO DAILY 09/04/22 11/05/24 Unknown History tablet,extended release 24 hr <Philomena Smith APRN - Last Filed: 11/30/24 16:41> Allergies/Adverse reactions: Allergies Allergy/AdvReac Type Severity Reaction Status Date / Time No Known Allergies Allergy Verified 11/30/24 19:11 <Philomena Smith APRN - Last Filed: 11/30/24 16:41> Review of Systems Review of Systems: All systems as dictated in HPI <Aniceto Lal PA-C - Last Filed: 11/30/24 19:11> [facility] Past Medical History Medical History: Medical History History of diabetes mellitus CVA (cerebral vascular accident) SDH (subdural hematoma) Aortic stenosis s/p TAVR Chronic kidney disease, stage 4 (severe) Hypertensive chronic kidney disease with stage 1 through stage 4 chronic kidney disease, or unspecified chronic kidney disease Mixed hyperlipidemia <Philomena Smith APRN - Last Filed: 11/30/24 16:41> Surgical History Surgical History: Surgical History S/P TAVR (transcatheter aortic valve replacement) Ganglion cyst s/p excision from left wrist <Philomena Smith APRN - Last Filed: 11/30/24 16:41> Family History Family History: Family History Father Family history of coronary artery disease Diabetes mellitus <Philomena Smith APRN - Last Filed: 11/30/24 16:41> Social History Social History: Social History Social History: She is and lives with her . She has no children. 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 She denies any alcohol or illicit drugs. Her is a [employer] public housing interviewer for healthcare. Code status full code Smoking packs per day: 1 Smoking cigarettes per day: 20.0 Years smoked: 6 Smoking pack-years: 6.00 Smoking status: Former smoker Tobacco type: cigarettes Second hand tobacco smoke exposure: No Alcohol intake: never Substance use: never Substance use type: does not use Living arrangements: alone Occupation/Education: retired Gender identity (if verbalized by the patient): Female Spiritual care concerns: No <Philomena Smith APRN - Last Filed: 11/30/24 16:41> Exam Narrative: GENERAL: Well-appearing, well-nourished, and in no acute distress. HEAD: Normocephalic. Mild frontal contusion and laceration that is well-approximated. EYES: PERRLA and EOMI. ENT: Mild nasal bruising with minimal swelling or and no displacement. Septal hematoma. Nares clear, no rhinorrhea or epistaxis. Mucous membranes moist. Oropharynx without tonsillar hypertrophy exudate or other lesions. NECK: Supple. No adenopathy or masses. CHEST: No respiratory distress. Clear to auscultation. No wheezes rales or rhonchi HEART: Regular rate and rhythm. No murmur heard. Normal peripheral pulses. ABDOMEN: Soft, nontender, nondistended, normal active bowel sounds. MSK: Normal range of motion. No edema. No midline spinal tenderness throughout. SKIN: 2 cm laceration to the frontal forehead, scalp area. Bleeding controlled on arrival. NEURO: Alert and oriented x4. No focal deficits. PSYCH: Normal mood and affect. <Aniceto Lal PA-C - Last Filed: 11/30/24 19:11> Course Vital Signs Vital signs: Vital Signs Temperature 98.0 F 11/30/24 16:00 Pulse Rate 63 11/30/24 16:00 Respiratory Rate 16 11/30/24 16:00 Blood Pressure 193/53 H 11/30/24 16:00 Pulse Oximetry 96 11/30/24 16:00 Oxygen Delivery Room Air 11/30/24 16:00 Temperature 98.0 F 11/30/24 16:00 Pulse Rate 63 11/30/24 16:00 Respiratory Rate 16 11/30/24 16:00 Blood Pressure 193/53 H 11/30/24 16:00 Pulse Oximetry 96 11/30/24 16:00 Oxygen Delivery Room Air 11/30/24 16:00 <Philomena Smith APRN - Last Filed: 11/30/24 16:41> Vital Signs Temperature 98.0 F 11/30/24 16:00 Pulse Rate 63 11/30/24 16:00 Respiratory Rate 16 11/30/24 16:00 Blood Pressure 193/53 H 11/30/24 16:00 Pulse Oximetry 96 11/30/24 16:00 Oxygen Delivery Room Air 11/30/24 16:00 Temperature 98.0 F 11/30/24 16:00 Pulse Rate 63 11/30/24 16:00 Respiratory Rate 16 11/30/24 16:00 Blood Pressure 193/53 H 11/30/24 16:00 Pulse Oximetry 96 11/30/24 16:00 Oxygen Delivery Room Air 11/30/24 16:00 <Aniceto Lal PA-C - Last Filed: 11/30/24 19:11> Procedures Laceration Laceration 1: Date: 11/30/24 <CHRISTOPHER Cerda Last Filed: 11/30/24 19:11> Time: 19:09 <Aniceto Lal PA-C - Last Filed: 11/30/24 19:11> Site: face <CHRISTOPHER Cerda Last Filed: 11/30/24 19:11> Size (cm): 2 <CHRISTOPHER Cerda Last Filed: 11/30/24 19:11> Description: linear <CHRISTOPHER Cerda Last Filed: 11/30/24 19:11> Depth: simple, single layer <CHRISTOPHER Cerda Last Filed: 11/30/24 19:11> Local Anesthetic: none <CHRISTOPHER Cerda Last Filed: 11/30/24 19:11> Pre-repair: wound explored, irrigated extensively and deep structures intact <Aniceto Lal PA-C - Last Filed: 11/30/24 19:11> ====== Skin Level ======: Skin layer closed with: dermabond and steri strips <Aniceto Lal PA-C - Last Filed: 11/30/24 19:11> Number of sutures: 3 <Aniceto Lal PA-C - Last Filed: 11/30/24 19:11> Technique: simple, interrupted <Aniceto Lal PA-C - Last Filed: 11/30/24 19:11> ====== Subcutaneous Layer ======: ====== Muscle Layer ======: ====== Tendon Layer ======: MDM - Head Injury MDM Narrative Medical decision making narrative: This is a 74-year-old female who presents to the ED for head injury that occurred just prior to arrival. Mechanical in nature. Vitals show elevated blood pressure on arrival but otherwise normal. No neurologic deficits. CT of the brain without contrast shows no acute findings. There is a 2 cm laceration to the central forehead with bleeding controlled on arrival. No other significant signs of facial trauma other than slightly ecchymotic nasal bridge. The laceration was well cleansed and irrigated here. She is reporting that her Tdap is updated. The laceration was closed with Dermabond and Steri-Strips. Patient will be discharged in stable condition. Supportive measures discussed and return precautions given. Patient is understanding and agreeable with plan for discharge with PCP follow-up. <Aniceto Lal PA-C - Last Filed: 11/30/24 19:11> Discharge Plan Discharge Clinical Impression: Fall, Head injury, Laceration <Philomena Smith APRN - Last Filed: 11/30/24 16:41> Patient Language: Bur[place]ian <Philomena Smith APRN - Last Filed: 11/30/24 16:41> Prescriptions: No Action minoxidil 2.5 mg tablet 5 mg PO BID Qty: 360 3RF Rx Instructions: TAKE 1 TABLET BY MOUTH TWICE DAILY isosorbide mononitrate 60 mg tablet extended release 24 hr 30 mg PO DAILY aspirin 81 mg Tablet 81 mg PO DAILY Calcium 600 + D(3) 600 mg capsule 600 mg PO DAILY docusate sodium [Colace] 100 mg capsule 100 mg PO DAILY Qty: 30 0RF citalopram 20 mg tablet 20 mg PO DAILY Qty: 90 2RF metoprolol tartrate 50 mg tablet 50 mg PO BID Qty: 60 0RF atorvastatin [Lipitor] 80 mg tablet 80 mg PO DAILY Qty: 90 2RF ferrous sulfate 325 mg (65 mg iron) tablet 325 mg PO BID Qty: 180 0RF furosemide 40 mg tablet 40 mg PO DAILY Qty: 90 1RF <Philomena Smith APRN - Last Filed: 11/30/24 16:41> Follow-up/Referrals: Sabino Moore MD [Primary Care Provider] - <Philomena Smith APRN - Last Filed: 11/30/24 16:41>
--- OUTSIDE RECORDS SUMMARY | 2024-12-03 14:52 | XMS_ITS | Clinical Summary ---
Author Organization [facility] Address [address] [place] [address] Care Team Providers Care Cnc Technician Name Role Phone Sabino Moore MD Primary Care Provider [phone] Source Comments [facility] [employer],non-owned Affiliates and Associated Physician Practices is amultiple site organization consisting of ambulatory clinics and hospital sitesin [place], [place], [place] and [place]. This disclosure is being madepursuant to the Care Everywhere program and may not contain all information available regarding this patient. Last updated 18.[facility] [employer] Allergies No known active allergies Medications * Be aware that medications may not be up to date on this document. Alwaysverify current medications with the patient. Medication Sig Dispensed Refills Start Date End Date Status Calcium Carbonate+Vitamin D 600-200 MG-UNIT TABS Take 1 tablet by mouth once daily Active citalopram (CeleXA) 20 MG tablet Take 20 mg by mouth once daily Active atorvastatin (Lipitor) 80 MG tablet Take 80 mg by mouth at bedtime Active fenofibrate (Lofibra) 160 MG tablet Take 160 mg by mouth once daily Take with largest meal of the day. Active acetaminophen (Tylenol) 500 MG tablet Take 1 (one) tablet by mouth every 6 hours as needed for Headache Maximum allowable Acetaminophen amount = 4 Grams (4000 mg) / 24 hours. 07/04/2022 Active isosorbide mononitrate CR 24hr (Imdur) 60 MG tablet Take 1 (one) tablet by mouth once daily 30 tablet 1 07/05/2022 Active minoxidil (Loniten) 2.5 MG tablet Take 1 (one) tablet by mouth 2 times daily 30 tablet 1 07/04/2022 Active labetalol (Normodyne; Trandate) 200 MG tablet Take 1 (one) tablet by mouth 2 times daily 30 tablet 1 07/04/2022 Active Active Problems Problem Noted Date Diagnosed Date Altered mental status 06/25/2022 Sepsis with acute hypoxic respiratory failure Shock 06/25/2022 Fall 06/25/2022 Anemia in chronic kidney disease (CKD) 2 Type 2 [facility] mellitus[facility] current use of insulin 06/25/2022 HTN (hypertension) 06/25/2022 CVA (cerebral vascular accident) 06/25/2022 HLD (hyperlipidemia) 06/25/2022 Depression 06/25/2022 History of transcatheter aortic valve replacemen t (TAVR) 06/25/2022 Immunizations Name Administration Dates Next Due TDAP (7yrs+) 06/25/2022 Social History Tobacco Use Types Packs/Day Years Used Date Smoking Tobacco: Never Smokeless Tobacco: Never Alcohol Use Standard Drinks/Week Comments Never 0 (1 standard drink = 0.6 oz pur e alcohol) AUDIT-C Answer Date Recorded Q1: How often do you have a drink containing alcohol? Never 06/25/2022 Q2: How many drinks containi ng alcohol do you have on a typical day when you are drinking? Patient does not drink Q3: How often do you have si x or more drinks on one occasion? Never 06/25/2022 Hunger Vital Sign Answer Date Recorded Within the past 12 months, y ou worried that your food would run out before you got the money to buy more. Never true 06/26/20 22 Within the past 12 months, t he food you bought just didn't last and you didn't have money to get more. Never true 06/26/2022 Sex and Gender Information Value Date Recorded Sex Assigned at Not on file Gender Identity Not on file Sexual Orientation Not on file Last Filed Vital Signs Vital Sign Reading Time Taken Comments Blood Pressure 115/63 07/04/2022 12:26 PM CDT Pulse 60 07/04/2022 12:26 PM CDT Temperature 36.7 ??C (98 ??F) 07/04/2022 12:26 PM CDT Respiratory Rate 20 07/04/2022 12:26 PM CDT Oxygen Saturation 100% 07/04/2022 12:26 PM CDT Inhaled Oxygen Concentration 30% 06/26/2022 2 :15 PM CDT Weight 83.5 kg (184 lb 1.4 oz) 07/04/2022 3:57 A M CDT Height 160 cm (5' 3 ) 06/24/2022 11:52 PM CDT Body Mass Index 32.61 06/24/2022 11:52 PM CDT Plan of Treatment Health Maintenance Due Date Last Done Comments BONE DENSITY TESTING 1950 COLOGUARD (AGES 45-75) - COLON CA SCREENING 1951 COLON MONITORING 1951 COLONOSCOPY - COLON CA SCREENING 1950 CT COLONOGRAPHY - COLON CA SCREENING 1950 Colorectal Cancer Screening 1950 FIT - COLON CA SCREENING 1951 FLEX SIG - COLON CA SCREENING 1950 MAMMOGRAM 1950 HEPATITIS C SCREENING 07/16/1969 PNEUMOCOCCAL VACCINE 50+ (1 of 2 - PCV) 1970 ZOSTER VACCINE (1 of 2) 2001 Respiratory Syncytial Virus (RSV) Vaccine Pt: or over 60 yrs (1 - Risk 60-74 years 1-dose series) 2011 DIABETES RETINOPATHY SCREENING 06/25/2022 DIABETES-FOOT EXAM WITH MONOFILAMENT 06/25/2022 DIABETES-HGB A1C 12/28/2022 06/27/2022 DIABETES-SERUM CREATININE 07/03/20232021, 07/02/2022, 07/01/2022, Additional history exists COVID-19 VACCINE ( - season) 2024 INFLUENZA VACCINE (#1) 2024 9, 09/09/2017, 08/13/2013, Additional history exists DEPRESSION SCREENING 11/11/2024 DIABETES - URINE PROTEIN SCREENING 11/11/2024 DTAP/TDAP/TD VACCINES (2 - Td or Tdap) 06/25/2032 06/25/2022 HEPATITIS B VACCINE Aged Out No longe r eligible based on patient's age to complete this topic HIB VACCINE Aged Out No longer eligi ble based on patient's age to complete this topic HPV VACCINE Aged Out No longer eligi ble based on patient's age to complete this topic MENINGOCOCCAL (Group B) VACCINE Aged Out No longer eligible based on patient's age to complete this topic MENINGOCOCCAL VACCINE Aged Out No jenn milton eligible based on patient's age to complete this topic Procedures Procedure Name Priority Date/Time Associated Diagnosis Comments RENAL FUNCTION PANEL Routine 07/03/2022 5:58 AM CDT HEMOGLOBIN A1C Routine 06/27/2022 3:29 AM CDT from Last 3 Months or Most Recently Relevant to Health Maintenance Results * (ABNORMAL) RENAL FUNCTION PANEL (07/03/2022 5:58 AM CDT) BUN 28(H) 7 - 26 mg/dL 07/03/2022 7:38 AM [facility] Creatinine 1.49(H) 0.56 - 0.96 mg/dL 07/03/2022 7:38 AM [facility] Sodium 143 136 - 145 mmol/L 07/03/2022 7:38 AM [facility] Potassium 4.2 3.5 - 4.5 mmol/L 07/03/2022 7:38 AM [facility] Chloride 105 98 - 107 mmol/L 07/03/2022 7:38 AM [facility] CO2 22 22 - 29 mmol/L 07/03/2022 7:38 AM [facility] Glucose 69(L) 70 - 115 mg/dL 07/03/2022 7:38 AM [facility] Albumin 3.2(L) 3.4 - 5.0 g/dL 07/03/2022 7:38 AM [facility] Calcium 9.6 8.4 - 10.2 mg/dL 07/03/2022 7:38 AM [facility] Phosphorus 3.0 2.9 - 5.1 mg/dL 07/03/2022 7:38 AM [facility] Anion Gap 20(H) 8 - 18 07/03/2022 7:38 AM [facility] BUN/Creatinine Ratio 19 7 - 23 07/03/2022 7:38 AM T [facility] Osmolality Calculated 300 270 - 300 mOsm/kg 07/03/2022 7:38 AM T [facility] eGFR by CKD-EPI 38(L) >=90 mL/min/1.7 3 m2 07/03/2022 7:38 AM [facility] Blood BLOOD SPECIMEN / Unknown Lab Venipuncture / Unknown 07/03/2022 5:58 AM CDT 07/03/2022 7:07 AM CDT Cale Brandon MD LAB - CHEMISTRY JAYDA RICKETTS Performing Organization Address City/[facility]/ZIP Co de Phone Number [facility] [address] [place] [address], [place] [phone] * HEMOGLOBIN A1C (06/27/2022 3:29 AM CDT) Hemoglobin A1c 5.4 <=5.6 % 06/27/2022 8:34 AM [facility] Estimated Average Glucose 108 mg/dL 06/27/2022 8:34 AM [facility] Comment: HbA1c Interpretation: Normal : < 5.7% Pre-diabetes: 5.7-6.4% Diabetes: Equal to or greater than 6.5% Test results diagnostic of diabetes should be repeated for confirmation. Treatment target values recommended by ADA and other clinical organizations should be used to evaluate metabolic control in patients. Reference: [place] Diabetes Association, Standards of Care in Diabetes -2020 In patients 70 years and older consider HbA1c target range of 7.0-7.5% (Reference: Yeison Rangel et al. JAMDA. 2012) The Sebia assay for the measurement of HbA1c is a National Glycohemoglobin Standardization Program (NGSP) certified method. Blood BLOOD SPECIMEN / Unknown Venipuncture / Unknown 06/27/2022 3:29 AM CDT 06/27/2022 3:39 AM CDT Cale Brandon MD LAB - CHEMISTRY JAYDA RICKETTS [facility] [address] [place] [address] [phone] from Last 3 Months or Most Recently Relevant to Health Maintenance Advance Directives * Full Code (Latest Code Status on File) Date Activated Date Inactivated Comments 06/25/2022 4:46 AM 07/04/2022 4:59 PM Care Teams Cnc Technician Relationship Specialty Start Date End Date Sabino Moore MD [address] [place] [address] PCP - General 03/23/22
--- OUTSIDE RECORDS SUMMARY | 2024-12-03 14:52 | XMS_ITS | Referral Summary ---
Author Organization [facility] Address [address] [place] [address] Care Team Providers Care Manager Provider Relations Name Role Phone Sabino Moore MD Primary Care Provider [phone] Source Comments [facility] [employer],non-owned Affiliates and Associated Physician Practices is amultiple site organization consisting of ambulatory clinics and hospital sitesin [place], [place], [place] and [place]. This disclosure is being madepursuant to the Care Everywhere program and may not contain all information available regarding this patient. Last updated 18.[facility] [employer] Allergies No known active allergies Medications * [...] disease (CKD) 2 Type 2 diabetes mellitus, [facility] long-term current use of insulin 06/25/2022 [...] Mass Index 32.61 06/24/2022 11:52 PM CDT Functional Status Functional Status Response Date of Assess ment Is person deaf or have serious hearing difficult y? No 07/04/2022 Is person blind or have serious difficulty seein g? No 07/04/2022 Does person have serious dif ficulty walking/climbing stairs? Yes 07/04/2022 Does person have difficulty dressing/bathing? Ye s 07/04/2022 Does person have difficulty doing errands alone? Yes 07/04/2022 Cognitive Status Response Date of Assessm ent Does person have difficulty concentrating/remembering/making decisions? Yes 07/04/2022 Plan of Treatment Not on file Procedures Procedure Name Priority Date/Time Associated Diagnosis Comments RENAL FUNCTION PANEL Routine 07/03/2022 5:58 AM CDT HEMOGLOBIN A1C Routine 06/27/2022 3:29 AM CDT from Last 3 Months or Most Recently Relevant to Health Maintenance Results * (ABNORMAL) RENAL FUNCTION PANEL (07/03/2022 5:58 AM CDT) BUN 28(H) 7 - 26 mg/dL 07/03/2022 7:38 AM [facility] Creatinine 1.49(H) 0.56 - 0.96 mg/dL 07/03/2022 7:38 AM [facility] Sodium 143 136 - 145 mmol/L 07/03/2022 7:38 AM T [facility] Potassium 4.2 3.5 - 4.5 mmol/L 07/03/2022 7:38 AM [facility] Chloride 105 98 - 107 mmol/L 07/03/2022 7:38 AM [facility] CO2 22 22 - 29 mmol/L 07/03/2022 7:38 AM [facility] Glucose 69(L) 70 - 115 mg/dL 07/03/2022 7:38 AM [facility] Albumin 3.2(L) 3.4 - 5.0 g/dL 07/03/2022 7:38 AM [facility] Calcium 9.6 8.4 - 10.2 mg/dL 07/03/2022 7:38 AM [facility] Phosphorus 3.0 2.9 - 5.1 mg/dL 07/03/2022 7:38 AM [facility] Anion Gap 20(H) 8 - 07/03/2022 7:38 AM [facility] BUN/Creatinine Ratio 19 7 - 07/03/2022 7:38 AM [facility] Osmolality Calculated 300 270 - 300 mOsm/kg 07/03/2022 7:38 AM [facility] eGFR by CKD-EPI 38(L) >=90 mL/min/1.7 3 m2 07/03/2022 7:38 AM [facility] Blood BLOOD SPECIMEN / Unknown Lab Venipuncture / Unknown 07/03/2022 5:58 AM CDT 07/03/2022 7:07 AM T Cale Brandon MD [facility] Organization Address City/State/ZIP Co de Phone Number [facility] [address] [place] [address], [facility] [phone] * HEMOGLOBIN A1C (06/27/2022 3:29 AM CDT) Hemoglobin A1c 5.4 <=5.6 % 06/27/2022 8:34 AM [facility] Estimated Average Glucose 108 mg/dL 06/27/2022 8:34 AM [facility] Comment: HbA1c Interpretation: Normal : < 5.7% Pre-diabetes: 5.7-6.4% Diabetes: Equal to or greater than 6.5% Test results diagnostic of diabetes should be repeated for confirmation. Treatment target values recommended by ADA and other clinical organizations should be used to evaluate metabolic control in patients. Reference: [place] Diabetes Association, Standards of Care in Diabetes -2020 In patients 70 years and older consider HbA1c target range of 7.0-7.5% (Reference: Yeison Rangel et al. ANUSHA. 2012) The Sebia assay for the measurement of HbA1c is a National Glycohemoglobin Standardization Program (NGSP) certified method. Blood BLOOD SPECIMEN / Unknown Venipuncture / Unknown 06/27/2022 3:29 AM CDT 06/27/2022 3:39 AM CDT Cale Brandon MD LAB - CHEMISTRY JAYDA RICKETTS [facility] Organization Address City/State/ZIP Co de Phone Number [facility] [address] [place] [address], [facility] [phone] from Last 3 Months or Most Recently Relevant to Health Maintenance Advance Directives * Full Code (Latest Code Status on File) Date Activated Date Inactivated Comments 06/25/2022 4:46 AM 07/04/2022 4:59 PM Care Teams Manager Provider Relations Relationship Specialty Start Date End Date Sabino Moore MD [address] [place] [address] [facility] - General 03/23/22
--- OUTSIDE RECORDS SUMMARY | 2024-12-03 14:53 | XMS_ITS | Clinical Summary ---
Author Organization [facility] Address [address] [place] [address] Phone Care Team Providers Care Animal Damage Control Agent Name Role Phone Sabino Moore MD Primary Care Provider [phone] Allergies No known active allergies Medications Medication Sig Dispensed Refills Start Date End Date Status atorvastatin (LIPITOR) 80 MG tablet TK 1 T PO D 10/23/2019 Active citalopram (CeleXA) 20 MG tablet TK 1 T PO D 11/17/2019 Active dilTIAZem (CARDIZEM) 60 MG immediate release tablet TK 1 T PO TID 10/27/2019 Active fenofibrate (TRICOR) 48 MG tablet 10/23/2019 Active Insulin Lispro, 1 Unit Dial, (HumaLOG KWIKPEN) 100 UNIT/ML solution pen-injector 10 U SQ QAC 04/24/2019 Ac tive insulin detemir (LEVEMIR FLEXTOUCH) 100 UNIT/ML injection Inject under the skin 04/24/2019 Active labetalol (NORMODYNE) 200 MG tablet TK 1 T PO BID 12/16/2019 Active losartan (COZAAR) 100 MG tablet TK 1 T PO QD 11/17/2019 Active minoxidil (LONITEN) 2.5 MG tablet TK 1 T PO BID 12/16/2019 Active Calcium 600-200 MG-UNIT per tablet Take 1 tablet by mouth 1 (one) time each day Active Active Problems Problem Noted Date Diagnosed Date Hypertensive chronic kidney disease with stage 1 through stage 4 chronic kidney disease, or unspecified chronic kidney disease 12/30/2019 Other specified disorders of bone density and structure, unspecified site 12/30/2019 Chronic kidney disease, Stage IV (severe) 2013 Diabetes mellitus without me ntion of complication, type II or unspecified type, not stated as uncontrolled 05/08/2010 Essential hypertension 05/08/2010 Cerebral hemorrhage 05/08/2010 Mixed hyperlipidemia 05/08/2010 Immunizations Name Administration Dates Next Due Influenza Split 08/13/2013,08/25/2012 Influenza Split High Dose Preservative Free IM 1 Influenza TIV (IM) 09/11/2019 Pneumococcal Polysaccharide 11/19/2011 Zoster 12/01/2012 Family History Medical History Relation Comments Kidney disease Neg Hx Social History Tobacco Use Types Packs/Day Years Used Date Smoking Tobacco: Former Smokeless Tobacco: Never Alcohol Use Standard Drinks/Week Comments Not Currently 0 (1 standard drink = 0.6 oz pur e alcohol) Sex and Gender Information Value Date Recorded Sex Assigned at Not on file Gender Identity Not on file Sexual Orientation Not on file Last Filed Vital Signs Vital Sign Reading Time Taken Comments Blood Pressure 142/70 12/30/2019 8:56 AM [employer] Pulse 72 12/30/2019 8:56 AM [employer]PER[employer] Temperature 36.6 ??C (97.9 ??F) 12/30/2019 8:56 AM CS T Respiratory Rate - - Oxygen Saturation - - Inhaled Oxygen Concentration - - Weight 105 kg (231 lb) 12/30/2019 8:56 AM [employer] Height 152.4 cm (5') 12/30/2019 8:56 AM [employer] Body Mass Index 45.11 12/30/2019 8:56 AM [employer]PER[employer] Plan of Treatment Health Maintenance Due Date Last Done Comments Pneumococcal PPSV23/PCV13 65 + Years / Low and Medium Risk (2 of 4 - PCV) 2016 11/19/2011 Influenza Vaccine (#1) 2024 , 08/13/2013, 08/25/2012 Care Teams Animal Damage Control Agent Relationship Specialty Start Date End Date Sabino Moore MD [address] [facility] [address] [facility] [address] [place] [address] PCP - General Internal Medicine 12/25/19
--- OUTSIDE RECORDS SUMMARY | 2024-12-03 14:53 | XMS_ITS | Continuity of Care Document ---
Author Organization [facility] Address [address] [place] [address] [place] [address] Phone Care Team Providers Care Delivery Truck Driver Name Role Phone Romeonicholasalfred Sterling Unavailable Unavailable Procedures Procedure Date Eye Exam & Treatment Refraction Advance Directives Directive Yes / No Effective Date File Name No Information Encounters Encounter Description Practice Location Reason(s) For Visit Diagnoses Date Provider Providers Copied on Encounter [facility], [address], [place], [place], [id number], [place] tel:[phone] [address] [facility] No Information [phone] Tori Sterling. [address] [facility] [address], [place], [address], [place]. tel:[phone] Family History Family Member Type Diagnosis Age At Onset No Information Payers Payer name Insurance type Covered constitution party ID Authoriza tion(s) No Information Social History [...]
--- OUTSIDE RECORDS SUMMARY | 2024-12-03 14:53 | XMS_ITS | Clinical Summary ---
Author Organization [facility] Alex king Agustínhayder Address [address] [address] Care Team Providers Care Plastic Card Grader Cardroom Name Role Phone Sabino Moore MD Primary Care Provider [phone] Allergies No known active allergies Medications minoxidiL (LONITEN) 2.5 mg tablet Take 2.5 mg by mouth 2 times daily. 12/16/2019 Active calcium carbonate/vitami n D2 (CALCIUM 500 WITH VITAMIN D ORAL) Take 1 Tablet by mouth daily. Active acetaminophen (TYLENOL) 500 mg tablet Take 500 mg by mouth every 6 hours as needed. 07/04/2022 Active atorvastatin (LIPITOR) 80 mg tablet Take 80 mg by mouth daily. 10/23/2019 Active citalopram (CeleXA) 20 mg tablet Take 20 mg by mouth daily. 11/17/2019 Active docusate sodium (COLACE) 100 mg capsule Take 100 mg by mouth daily. 08/20/2022 Active FeroSuL 325 mg (65 mg iron) tablet Take 325 mg by mouth 2 times daily. 08/20/2022 Active furosemide (LASIX) 40 mg tablet Take 40 mg by mouth daily. 08/20/2022 Active isosorbide mononitrate (IMDUR) 30 mg Extended Release 24 hour tablet Take 30 mg by mouth daily. 08/28/2022 Active potassium gluconate 2.5 mEq Tablet Take 1 Tablet by mouth daily. Active metoprolol tartrate (LOPRESSOR) 50 mg tablet Take 50 mg by mouth 2 times daily. 12/07/2022 Active Active Problems Problem Noted Date Diagnosed Date Anemia, chronic disease 09/14/2022 Hypertension associated with diabetes 02/06/2021 Chronic kidney disease, stage IV (severe) 2013 Encounters Date Type Department Care Team Description 12/02/2024 External Device Data [facility] Provider, Abstract 11/25/2024 External Device Data [facility] Provider, Abstract from Last 3 Months Social History Tobacco Use Types Packs/Day Years Used Date Smoking Tobacco: Former Cigarettes 1 10 0 11/11/1967 - 11/11/1977 Smokeless Tobacco: Never Tobacco Cessation:Counseling Given: Not Answered Alcohol Use Standard Drinks/Week Comments Not Currently 0 (1 standard drink = 0.6 oz pur e alcohol) Comments Unknown Sex and Gender Information Value Date Recorded Sex Assigned at Not on file Legal Sex Female 3:27 PM CDT Gender Identity Not on file Sexual Orientation Not on file Last Filed Vital Signs Vital Sign Reading Time Taken Comments Blood Pressure 148/67 06/03/2024 12:58 PM CDT Pulse 61 06/03/2024 12:58 PM CDT Temperature 36.7 ??C (98 ??F) 06/03/2024 12:55 PM CDT Respiratory Rate 18 06/03/2024 12:55 PM CDT Oxygen Saturation 92% 06/03/2024 12:55 PM CDT Inhaled Oxygen Concentration - - Weight 91.2 kg (201 lb) 06/03/2024 12:55 PM CDT Height 154.9 cm (5' 1 ) 08/31/2022 1:50 PM CDT Body Mass Index 37.98 08/31/2022 1:50 PM CDT Plan of Treatment Upcoming Encounters Date Type Department Care Team (Late st Contact Info) Description 12/09/2024 1:00 PM PROSECUTING ATTORNEY Office Visit [facility] Oncology and Hematology - [facility] [address] [facility] [address] [place] [address] Luisito Dejesus MD [address] [facility] [address] [place] [address] Health Maintenance Due Date Last Done Comments DIABETES ANNUAL FOOT EXAM 1969 DIABETES ANNUAL RETINAL EXAM 1969 DIABETES MICROALBUMIN ANNUAL SCREEN 1969 LDL CHOLESTEROL ANNUAL 1969 BREAST CANCER SCREENING 1991 COLORECTAL SCREENING 1996 Colorectal Cancer Screening 1996 FIT-DNA Q 3 years 1996 FIT/FOBT Q 1 year 1996 Flex Sig/CT Colonography Q 5 years 1996 RSV VACCINE (60+ or ) (1 - Risk 60-74 years 1-dose series) 2011 PNEUMOCOCCAL VACCINE 65+ YEA RS (2 of 2 - PCV) 11/19/2012 11/19/2011 ZOSTER VACCINE (2 of 3) 01/26/2013 12/01/2012 OSTEOPOROSIS SCREENING 2016 DIABETES HBA1C Q 6 MONTHS 12/28/2022 06/27/2022 INFLUENZA VACCINE (#1) 2024 , 09/11/2019, 09/09/2017 DTAP/TDAP/TD VACCINES (2 - T d or Tdap) 06/25/2032 06/25/2022 Insurance [employer] PPO MCR Care Teams Plastic Card Grader Cardroom Relationship Specialty Start Date End Date Sabino Moore MD [address] [facility] [address] [place] [address] PCP - General Family Practice 08/31/22
--- OUTSIDE RECORDS SUMMARY | 2024-12-03 14:53 | XMS_ITS | Patient Health Summary ---
Author Organization [facility] Address [address] [place] [address] Care Team Providers Care Farm Rancher Name Role Phone Sabino Moore MD Primary Care Provider [phone] Note from [facility] [place],non-owned Affiliates and Associated Physician Practices is amultiple site organization consisting of ambulatory clinics and hospital sitesin [place], [place], [place] and [place]. This disclosure is being madepursuant to the Care Everywhere program and may not contain all information available regarding this patient. Last updated 18.[facility] Allergies No known active allergies Medications * Be aware that medications may not be up to date on this document. Alwaysverify current medications with the patient. * Calcium Carbonate+Vitamin D 600-200 MG-UNIT TABS Take 1 tablet by mouth once daily * citalopram (CeleXA) 20 MG tablet Take 20 mg by mouth once daily * atorvastatin (Lipitor) 80 MG tablet Take 80 mg by mouth at bedtime * fenofibrate (Lofibra) 160 MG tablet Take 160 mg by mouth once daily Take with largest meal of the day. * acetaminophen (Tylenol) 500 MG tablet(Started 07/04/2022) Take 1 (one) tablet by mouth every 6 hours as needed for Headache Maximum allowable Acetaminophen amount = 4 Grams (4000 mg) / 24 hours. * isosorbide mononitrate CR 24hr (Imdur) 60 MG tablet(Started 07/05/2022) Take 1 (one) tablet by mouth once daily 1 refill by 07/04/2023 * minoxidil (Loniten) 2.5 MG tablet(Started 07/04/2022) Take 1 (one) tablet by mouth 2 times daily 1 refill by 07/04/2023 * labetalol (Normodyne; Trandate) 200 MG tablet(Started 07/04/2022) Take 1 (one) tablet by mouth 2 times daily 1 refill by 07/04/2023 Active Problems Problem Noted Date Diagnosed Date Altered mental status 06/25/2022 Sepsis with acute hypoxic respiratory failure Shock 06/25/2022 Fall 06/25/2022 Anemia in chronic kidney disease (CKD) Type 2 diabetes mellitus, wi thout long-term current use of insulin 06/25/2022 HTN (hypertension) 06/25/2022 CVA (cerebral vascular accident) 06/25/2022 HLD (hyperlipidemia) 06/25/2022 Depression 06/25/2022 History of transcatheter aortic valve replacemen t (TAVR) 06/25/2022 Immunizations * TDAP (7yrs+)(Given 06/25/2022) Social History Tobacco Use Types Packs/Day Years [...] Mass Index 32.61 06/24/2022 11:52 PM CDT Procedures * APHERESIS/TRANSFUSION ORDER(Performed 07/05/2022) * CARDIAC EKG ORDER(Performed 07/05/2022) * GLUCOSE - POINT OF CARE(Performed 07/03/2022) * GLUCOSE - POINT OF CARE(Performed 07/03/2022) * CBC W AUTO DIFFERENTIAL(Performed 07/03/2022) * GLUCOSE - POINT OF CARE(Performed 07/03/2022) * RENAL FUNCTION PANEL(Performed 07/03/2022) * GLUCOSE - POINT OF CARE(Performed 07/02/2022) * GLUCOSE - POINT OF CARE(Performed 07/02/2022) * RENAL FUNCTION PANEL(Performed 07/02/2022) * CBC W AUTO DIFFERENTIAL(Performed 07/02/2022) * GLUCOSE - POINT OF CARE(Performed 07/01/2022) * GLUCOSE - POINT OF CARE(Performed 07/01/2022) * GLUCOSE - POINT OF CARE(Performed 07/01/2022) * GLUCOSE - POINT OF CARE(Performed 07/01/2022) * RENAL FUNCTION PANEL(Performed 07/01/2022) * CBC W AUTO DIFFERENTIAL(Performed 07/01/2022) * GLUCOSE - POINT OF CARE(Performed 06/30/2022) * GLUCOSE - POINT OF CARE(Performed 06/30/2022) * RENAL FUNCTION PANEL(Performed 06/30/2022) * CBC W AUTO DIFFERENTIAL(Performed 06/30/2022) * MAGNESIUM BLOOD(Performed 06/30/2022) * GLUCOSE - POINT OF CARE(Performed 06/30/2022) * GLUCOSE - POINT OF CARE(Performed 06/30/2022) * GLUCOSE - POINT OF CARE(Performed 06/29/2022) * GLUCOSE - POINT OF CARE(Performed 06/29/2022) * GLUCOSE - POINT OF CARE(Performed 06/29/2022) * RENAL FUNCTION PANEL(Performed 06/29/2022) * CBC W AUTO DIFFERENTIAL(Performed 06/29/2022) * MAGNESIUM BLOOD(Performed 06/29/2022) * GLUCOSE - POINT OF CARE(Performed 06/29/2022) * PREPARE RBC LEUKOREDUCED UNIT(Performed 06/29/2022) * PREPARE RBC LEUKOREDUCED UNIT(Performed 06/29/2022) * PREPARE RBC LEUKOREDUCED UNIT(Performed 06/29/2022) * GLUCOSE - POINT OF CARE(Performed 06/28/2022) * GLUCOSE - POINT OF CARE(Performed 06/28/2022) * GLUCOSE - POINT OF CARE(Performed 06/28/2022) * BASIC METABOLIC PANEL (CALCIUM TOTAL)(Performed 06/28/2022) * GLUCOSE - POINT OF CARE(Performed 06/28/2022) * GLUCOSE - POINT OF CARE(Performed 06/28/2022) * GLUCOSE - POINT OF CARE(Performed 06/28/2022) * RENAL FUNCTION PANEL(Performed 06/28/2022) * CBC W AUTO DIFFERENTIAL(Performed 06/28/2022) * MAGNESIUM BLOOD(Performed 06/28/2022) * GLUCOSE - POINT OF CARE(Performed 06/27/2022) * GLUCOSE - POINT OF CARE(Performed 06/27/2022) * XR ABDOMEN KUB PORTABLE(Performed 06/27/2022) Performed for Gastrointestinal hemorrhage, unspecified gastrointestinal hemorrhage type * GLUCOSE - POINT OF CARE(Performed 06/27/2022) * GLUCOSE - POINT OF CARE(Performed 06/27/2022) * GLUCOSE - POINT OF CARE(Performed 06/27/2022) * GLUCOSE - POINT OF CARE(Performed 06/27/2022) * GLUCOSE - POINT OF CARE(Performed 06/27/2022) * TRIGLYCERIDES BLOOD(Performed 06/27/2022) * HEMOGLOBIN A1C(Performed 06/27/2022) * RENAL FUNCTION PANEL(Performed 06/27/2022) * CBC W AUTO DIFFERENTIAL(Performed 06/27/2022) * MAGNESIUM BLOOD(Performed 06/27/2022) * GLUCOSE - POINT OF CARE(Performed 06/27/2022) * BLOOD GASES BROOK + COOX PANEL(Performed 06/26/2022) * GLUCOSE - POINT OF CARE(Performed 06/26/2022) * GLUCOSE - POINT OF CARE(Performed 06/26/2022) * HEMOGLOBIN(Performed 06/26/2022) * GLUCOSE - POINT OF CARE(Performed 06/26/2022) * ECHO COMPLETE(Performed 06/26/2022) Performed for Altered mental status, unspecified altered mental status type * TRANSFUSE RED BLOOD CELL LEUKOREDUCED UNIT(S)(Performed 06/26/2022) * XR ABDOMEN KUB PORTABLE(Performed 06/26/2022) Performed for Encounter for imaging study to confirm nasogastric (NG) tube placement * GLUCOSE - POINT OF CARE(Performed 06/26/2022) * PHOSPHORUS BLOOD(Performed 06/26/2022) * MAGNESIUM BLOOD(Performed 06/26/2022) * CBC W/O DIFFERENTIAL(Performed 06/26/2022) * COMPREHENSIVE METABOLIC PANEL(Performed 06/26/2022) * GLUCOSE - POINT OF CARE(Performed 06/26/2022) * GLUCOSE - POINT OF CARE(Performed 06/25/2022) * GLUCOSE - POINT OF CARE(Performed 06/25/2022) * CORTISOL BLOOD PM(Performed 06/25/2022) * TROPONIN I(Performed 06/25/2022) * RENAL FUNCTION PANEL(Performed 06/25/2022) * GLUCOSE - POINT OF CARE(Performed 06/25/2022) * BLOOD GASES ART + COOX PANEL(Performed 06/25/2022) * XR CHEST 1VW PORTABLE(Performed 06/25/2022) Performed for Altered mental status, unspecified altered mental status type * GLUCOSE - POINT OF CARE(Performed 06/25/2022) * DRUG SCREEN EXPANDED TOXICOLOGY URINE PANEL(Performed 06/25/2022) * MAGNESIUM BLOOD(Performed 06/25/2022) * CBC W/O DIFFERENTIAL(Performed 06/25/2022) * HEPATIC FUNCTION PANEL(Performed 06/25/2022) * TROPONIN I(Performed 06/25/2022) * GLUCOSE - POINT OF CARE(Performed 06/25/2022) * VITAMIN B12(Performed 06/25/2022) * TSH REFLEX FREE T4(Performed 06/25/2022) * BLOOD GASES ART + COOX PANEL(Performed 06/25/2022) * BASIC METABOLIC PANEL (CALCIUM TOTAL)(Performed 06/25/2022) * TROPONIN I(Performed 06/25/2022) * CREATININE URINE RANDOM(Performed 06/25/2022) * SODIUM URINE RANDOM(Performed 06/25/2022) * BLOOD GASES ART + COOX PANEL(Performed 06/25/2022) * TRANSFUSE PLATELET PHERESIS UNIT(S)(Performed 06/25/2022) * PREPARE PLATELET PHERESIS UNIT(S)(Performed 06/25/2022) * GLUCOSE - POINT OF CARE(Performed 06/25/2022) * TRANSFUSE RED BLOOD CELL LEUKOREDUCED UNIT(S)(Performed 06/25/2022) * GLUCOSE - POINT OF CARE(Performed 06/25/2022) * CT CERVICAL SPINE WO CONTRAST(Performed 06/25/2022) Performed for Altered mental status, unspecified altered mental status type * CT THORACIC SPINE WO CONTRAST(Performed 06/25/2022) Performed for Altered mental status, unspecified altered mental status type * CT LUMBAR SPINE WO CONTRAST(Performed 06/25/2022) Performed for Altered mental status, unspecified altered mental status type * CT HEAD WO CONTRAST(Performed 06/25/2022) Performed for Altered mental status, unspecified altered mental status type * CK BLOOD(Performed 06/25/2022) * COMPREHENSIVE METABOLIC PANEL(Performed 06/25/2022) * PROCALCITONIN LEVEL(Performed 06/25/2022) * TROPONIN I(Performed 06/25/2022) * LACTIC ACID BLOOD REFLEX TO REPEAT(Performed 06/25/2022) * CULTURE BLOOD(Performed 06/25/2022) * XR CHEST 1VW PORTABLE(Performed 06/25/2022) Performed for Altered mental status, unspecified altered mental status type * XR PELVIS 1 OR 2VW(Performed 06/25/2022) Performed for Altered mental status, unspecified altered mental status type * BLOOD TYPE VERIFICATION(Performed 06/25/2022) * URINALYSIS REFLEX TO MICROSCOPIC NO CULTURE(Performed 06/25/2022) * URINE DRUG SCREEN IMMUNOASSAY(Performed 06/25/2022) * CULTURE URINE(Performed 06/25/2022) * CULTURE BLOOD(Performed 06/25/2022) * EKG 12-LEAD(Performed 06/25/2022) Performed for Altered mental status, unspecified altered mental status type * TYPE + SCREEN PANEL(Performed 06/25/2022) * CK BLOOD(Performed 06/25/2022) * BLOOD GASES ART + COOX PANEL(Performed 06/25/2022) * CBC W AUTO DIFFERENTIAL(Performed 06/25/2022) * TEG 6S PLATELET MAPPING(Performed 06/25/2022) * TEG 6 GLOBAL HEMOSTASIS W/ LYSIS(Performed 06/25/2022) * PTT SLH(Performed 06/25/2022) * PT-INR [facility](Performed 06/25/2022) Results * APHERESIS/TRANSFUSION ORDER (07/05/2022 2:18 PM CDT) Narrative 07/05/2022 2:18 PM CDT Ordered by an unspecified provider. Scanned Document NURSING - VITAL SIGN S AND ASSESSMENT * CARDIAC EKG ORDER (07/05/2022 2:10 PM CDT) Narrative 07/05/2022 2:10 PM CDT Ordered by an unspecified provider. Scanned Document CARDIAC SERVICES ORD ERABLES * (ABNORMAL) GLUCOSE - POINT OF CARE (07/03/2022 4:49 PM CDT) Only the most recent of43 resultswithin the time period is included. [facility] Glucose WB/POC 123(H) 70 - 115 mg/dL 07/03/2022 4:54 PM CDT [facility] Specimen Type Cap Fingerstick 2021 4:54 PM CDT [facility] Blood BLOOD SPECIMEN / Unknown 07/03/2022 4:49 PM CDT 07/03/2022 4:54 PM CDT Fallon Benson MD LAB - POINT OF CARE ORDERABLES [facility] [address] [place] [address], [facility] [phone] * (ABNORMAL) CBC W AUTO DIFFERENTIAL (07/03/2022 9:20 AM CDT) Only the most recent of8 resultswithin the time period is included. WBC 10.3 3.5 - 10.5 10? 3 /uL 07/03/2022 10:02 AM [facility] RBC 3.62(L) 3.80 - 5.20 10? 6 /uL 07/03/2022 10:02 AM [facility] Hemoglobin 10.3(L) 12.0 - 15.6 g/dL 07/03/2022 10:02 AM [facility] Hematocrit 32.7(L) 35.0 - 45.0 % 07/03/2022 10:02 AM [facility] MCV 90.3 80.7 - 98.3 fL 07/03/2022 10:02 AM [facility] MCH 28.5 26.7 - 34.0 pg 07/03/2022 10:02 AM [facility] MCHC 31.5 30.8 - 35.9 g/dL 07/03/2022 10:02 AM [facility] Platelet Count 261 150 - 400 10? 3 /uL 07/03/2022 10:02 AM [facility] RDW-SD 51.7(H) 36.0 - 50.0 fL 07/03/2022 10:02 AM [facility] RDW-CV 15.7(H) 11.2 - 14.8 % 07/03/2022 10:02 AM [facility] MPV 10.1 9.4 - 12.9 fL 07/03/2022 10:02 AM [facility] nRBC Absolute 0.00 0 10? 3 /uL 07/03/2022 10:02 AM [facility] nRBC Auto 0.0 0 /100 WBC 07/03/2022 10:02 AM [facility] Neutrophils % 76.0(H) 35.0 - 70.0 % 07/03/2022 10:02 AM [facility] Lymphocytes % 10.9(L) 20.0 - 43.0 % 07/03/2022 10:02 AM [facility] Monocytes % 8.1 5.0 - 13.0 % 07/03/2022 10:02 AM [facility] Eosinophils % 3.0 0.0 - 6.0 % 07/03/2022 10:02 AM [facility] Basophil % 0.4 0.0 - 2.0 % 07/03/2022 10:02 AM [facility] Neutrophils Absolute 7.85(H) 1.60 - 7.00 10? 3 /uL 07/03/2022 10:02 AM [facility] Lymphocyte Absolute 1.12 1.10 - 3.90 10? 3 /uL 07/03/2022 10:02 AM [facility] Monocytes Absolute 0.83 0.26 - 1.07 10? 3 /uL 07/03/2022 10:02 AM [facility] Eosinophils Absolute 0.31 0.00 - 0.47 10? 3 /uL 07/03/2022 10:02 AM [facility] Basophils Absolute 0.04 0.00 - 0.08 10? 3 /uL 07/03/2022 10:02 AM [facility] Immature Granulocytes % 1.6(H) 0.0 - 1.0 % 07/03/2022 10:02 AM [facility] Immature Granulocytes Absolute 0.16 07/03/2022 10:02 AM [facility] Blood BLOOD SPECIMEN / Unknown Lab Venipuncture / Unknown 07/03/2022 9:20 AM CDT 07/03/2022 9:55 AM CDT Cale Brandon MD LAB - HEMATOLOGY ORD ERABLES [facility] [address] [place] [address], [facility] [phone] * (ABNORMAL) RENAL FUNCTION PANEL (07/03/2022 5:58 AM CDT) Only the most recent of8 resultswithin the time period is included. BUN 28(H) 7 - 26 mg/dL 07/03/2022 7:38 AM [facility] Creatinine 1.49(H) 0.56 - 0.96 mg/dL 07/03/2022 7:38 AM [facility] Sodium 143 136 - 145 mmol/L 07/03/2022 7:38 AM [facility] Potassium 4.2 3.5 - 4.5 mmol/L 07/03/2022 7:38 AM [facility] Chloride 105 98 - 107 mmol/L 07/03/2022 7:38 AM [facility] CO2 22 22 - 29 mmol/L 07/03/2022 7:38 AM [facility] Glucose 69(L) 70 - 115 mg/dL 07/03/2022 7:38 AM [facility] Albumin 3.2(L) 3.4 - 5.0 g/dL 07/03/2022 7:38 AM [facility] Calcium 9.6 8.4 - 10.2 mg/dL 07/03/2022 7:38 AM [facility] Phosphorus 3.0 2.9 - 5.1 mg/dL 07/03/2022 7:38 AM [facility] Anion Gap 20(H) 8 - 18 07/03/2022 7:38 AM [facility] BUN/Creatinine Ratio 19 7 - 07/03/2022 7:38 AM [facility] Osmolality Calculated 300 270 - 300 mOsm/kg 07/03/2022 7:38 AM [facility] eGFR by CKD-EPI 38(L) >=90 mL/min/1.7 3 m2 07/03/2022 7:38 AM [facility] Blood BLOOD SPECIMEN / Unknown Lab Venipuncture / Unknown 07/03/2022 5:58 AM CDT 07/03/2022 7:07 AM T Cale Brandon MD LAB - CHEMISTRY ORDE LILIAM [facility] Organization Address City/State/ZIP Co de Phone Number [facility] [address] [place] [address], [facility] [phone] * MAGNESIUM BLOOD (06/30/2022 3:33 AM CDT) Only the most recent of6 resultswithin the time period is included. Magnesium 2.3 1.6 - 2.6 mg/dL 06/30/2022 4:10 AM [facility] Blood BLOOD SPECIMEN / Unknown Venipuncture / Unknown 06/30/2022 3:33 AM CDT 06/30/2022 3:38 AM CDT Cale Brandon MD LAB - CHEMISTRY ORDE RABNATALIE [facility] [address] [place] [address], [facility] [phone] * PREPARE (CROSSMATCH) RBC UNIT(S), 1 Units (06/29/2022 1:17 AM CDT) Only the most recent of3 resultswithin the time period is included. Pathologist [facility] Description N/A [facility] Blood Bank BLOOD SPECIMEN / Unknown 06/25/2022 12:15 AM CDT Cale Brandon MD LAB - BLOOD BANK ORD KIRT Performing Organization Address City/[facility] [address]/ZIP Co de Phone Number [facility] [address] [place] [address], [facility] [phone] * (ABNORMAL) BASIC METABOLIC PANEL (CALCIUM TOTAL) (06/28/2022 2:35 PM CDT) Only the most recent of2 resultswithin the time period is included. BUN 48(H) 7 - 26 mg/dL 06/28/2022 3:09 PM CDT [facility] Creatinine 2.28(H) 0.56 - 0.96 mg/dL 06/28/2022 3:09 PM CDT [facility] Sodium 150(H) 136 - 145 mmol/L 06/28/2022 3:09 PM CDT [facility] Potassium 4.7(H) 3.5 - 4.5 mmol/L 06/28/2022 3:09 PM T [facility] Chloride 120(H) 98 - 107 mmol/L 06/28/2022 3:09 PM T [facility] CO2 18(L) 22 - 29 mmol/L 06/28/2022 3:09 PM T [facility] Glucose 125(H) 70 - 115 mg/dL 06/28/2022 3:09 PM CDT [facility] Calcium 9.0 8.4 - 10.2 mg/dL 06/28/2022 3:09 PM CDT [facility] Anion Gap 17 8 - 18 06/28/2022 3:09 PM CDT [facility] BUN/Creatinine Ratio 21 7 - 23 06/28/2022 3:09 PM CDT [facility] Osmolality Calculated 324(H) 270 - 300 mOsm/kg 06/28/2022 3:09 PM CDT [facility] eGFR by CKD-EPI 23(L) >=90 mL/min/1.7 3 m2 06/28/2022 3:09 PM CDT [facility] Blood BLOOD SPECIMEN / Unknown Venipuncture / Unknown 06/28/2022 2:35 PM CDT 06/28/2022 2:44 PM CDT Cale Brandon MD LAB - CHEMISTRY JAYDA RICKETTS [facility] Organization Address City/State/ZIP Co de Phone Number [address] [address], [facility] [phone] * XR ABDOMEN KUB PORTABLE (06/27/2022 6:16 PM CDT) Only the most recent of2 resultswithin the time period is included. Anatomical Region Laterality Modality Abdomen Radiographic Mira ging 06/28/2022 7:52 AM CDT Narrative 06/28/2022 5:44 PM CDT PROCEDURE: ??XR ABDOMEN KUB PORTABLE, DATE/TIME OF EXAM: ??06/27/2022 6:17 PM, LOCATION ??[facility] INDICATION: K92.2: Gastrointestinal hemorrhage, unspecified gastrointestinal hemorrhage type ADDITIONAL CLINICAL INFORMATION: Ordering Provider Reason For Exam: ??NG tube placement COMPARISON: Abdominal x-ray dated 06/26/2020 Enteric tube tip superimposes the stomach. Report dictated by Cali Guthrie DO (radiology assistant). Abel Gilmore MD have personally reviewed and interpreted this examination/study. > Interpreting Provider: Abel Walsh MD on 06/28/2022 5:44 PM Procedure Note Rubi Walsh MD - 06/28/2022 PROCEDURE: XR ABDOMEN KUB PORTABLE, DATE/TIME OF EXAM: 06/27/2022 6:17PM, LOCATION [facility] INDICATION: K92.2: Gastrointestinal hemorrhage, unspecified gastrointestinalhemorrhage type ADDITIONAL CLINICAL INFORMATION: Ordering Provider Reason For Exam: NG tube placement COMPARISON: Abdominal x-ray dated 06/26/2020 Enteric tube tip superimposes the stomach. Report dictated by Cali Guthrie DO (radiology assistant). Abel Gilmore MD have personally reviewed and interpreted this examination/study. > Interpreting Provider: Abel Walsh MD on 06/28/2022 5:44 PM Cale Brandon MD DIAGNOSTIC IMAGING O RDERABLES * HEMOGLOBIN A1C (06/27/2022 3:29 AM CDT) Hemoglobin A1c 5.4 <=5.6 % 06/27/2022 8:34 AM CDT [facility] Estimated Average Glucose 108 mg/dL 06/27/2022 8:34 AM CDT [facility] Comment: HbA1c Interpretation: Normal : < 5.7% Pre-diabetes: 5.7-6.4% Diabetes: Equal to or greater than 6.5% Test results diagnostic of diabetes should be repeated for confirmation. Treatment target values recommended by ADA and other clinical organizations should be used to evaluate metabolic control in patients. Reference: [place] [employer], Standards of Care in Diabetes [...] Brandon MD LAB - CHEMISTRY JAYDA RICKETTS [facility] Organization Address City/State/ZIP Co de Phone Number [facility] [address] [place] [address], [facility] [phone] * TRIGLYCERIDES BLOOD (06/27/2022 3:29 AM CDT) Triglycerides 114 <150 mg/dL 06/27/2022 4:13 AM T [facility] Comment: ATP III Classification of Triglycerides: ?<150 mg/dL: ??Normal ? 150 - 199 mg/dL: ??Borderline High ? 200 - 400 mg/dL: ??High ?>500 mg/dL: ??Very High Blood BLOOD SPECIMEN / Unknown Venipuncture / Unknown 06/27/2022 3:29 AM CDT 06/27/2022 3:39 AM CDT Esa Sevilla DO LAB - CHEMISTRY JAYDA RICKETTS [facility] [address] [place], [place] [id number], [facility] [phone] * (ABNORMAL) BLOOD GASES BROOK + COOX PANEL (06/26/2022 8:03 PM CDT) pH Venous 7.26(L) 7.32 - 7.42 pH 06/26/2022 8:08 PM [facility] pO2 Venous 66(H) 35 - 40 mmHg 06/26/2022 8:08 PM [facility] pCO2 Venous 44 40 - 50 mmHg 06/26/2022 8:08 PM [facility] HCO3 Venous 19.7(L) 20 - 30 mmol/L 06/26/2022 8:08 PM [facility] Base Excess Venous -7.0(L) -2.0 - 2.0 mmol/L 06/26/2022 8:08 PM [facility] Oxyhemoglobin Venous 92.6 % 06/11 8:08 PM [facility] Deoxyhemoglobin (HHB) Venous % 5.0 % 06/26/2022 8:08 PM [facility] Methemoglobin <0.8 0.0 - 2.0 % 06/26/2022 8:08 PM CDT [facility] Carboxyhemoglobin 2.0 0.0 - 2.0 % 2021 8:08 PM T [facility] O2 Content Venous 11.8 Interpret within clinical context mg/dL 06/26/2022 8:08 PM [facility] Hemoglobin by COOX 9.0(L) 12.0 - 15.6 g/dL 06/26/2022 8:08 PM T [facility] O2 Saturation Venous 95 >=70 % 06/11 8:08 PM T [facility] FI O2 Mixed Venous 36.0 % 2021 8:08 PM T [facility] Comment:4L Blood BLOOD SPECIMEN / Unknown Venipuncture / Unknown 06/26/2022 8:03 PM CDT 06/26/2022 8:06 PM CDT Narrative [facility] - 06/26/2022 8:08 PM CDT Carboxyhemoglobin Normal Concentration: Non-smokers: 0-2%; Smokers: 0-9%; Toxic: >20% Cale Brandon MD LAB - BLOOD GASES OR DERABLES [address] [address], [facility] [phone] * (ABNORMAL) HEMOGLOBIN (06/26/2022 12:46 PM CDT) Hemoglobin 8.5(L) 12.0 - 15.6 g/dL 06/26/2022 1:02 PM CDT [facility] Blood BLOOD SPECIMEN / Unknown Venipuncture / Unknown 06/26/2022 12:46 PM CDT 06/26/2022 12:52 PM CDT Cale Brandon MD LAB - HEMATOLOGY ORD ERABLES [address] [address], [place] [phone] * TRANSFUSE RED BLOOD CELL LEUKOREDUCED UNIT(S) (06/26/2022 12:17 PM CDT) Cale Brandon MD NURSING - BLOOD PROD TRANSFUSION * ECHO COMPLETE (06/26/2022 11:55 AM CDT) Anatomical Region Laterality Modality Chest Echo 06/26/2022 11:1 6 AM CDT Narrative Procedure Note Bernice Ross MD - 06/26/2022 Cale Brandon MD ECHOCARDIOGRAPHY RAD IANT * (ABNORMAL) CBC W/O DIFFERENTIAL (06/26/2022 4:18 AM CDT) Only the most recent of2 resultswithin the time period is included. WBC 5.5 3.5 - 10.5 10? 3 /uL 06/26/2022 4:57 AM [facility] RBC 2.13(L) 3.80 - 5.20 10? 6 /uL 06/26/2022 4:57 AM [facility] Hemoglobin 6.1(L) 12.0 - 15.6 g/dL 06/26/2022 4:57 AM [facility] Hematocrit 19.4(L) 35.0 - 45.0 % 06/26/2022 4:57 AM [facility] MCV 91.1 80.7 - 98.3 fL 06/26/2022 4:57 AM [facility] MCH 28.6 26.7 - 34.0 pg 06/26/2022 4:57 AM [facility] MCHC 31.4 30.8 - 35.9 g/dL 06/26/2022 4:57 AM [facility] Platelet Count 100(L) 150 - 400 10? 3 /uL 06/26/2022 4:57 AM [facility] RDW-SD 52.8(H) 36.0 - 50.0 fL 06/26/2022 4:57 AM [facility] RDW-CV 15.9(H) 11.2 - 14.8 % 06/26/2022 4:57 AM [facility] MPV 10.9 9.4 - 12.9 fL 06/26/2022 4:57 AM [facility] nRBC Absolute 0.00 0 10? 3 /uL 06/26/2022 4:57 AM [facility] nRBC Auto 0.0 0 /100 WBC 06/26/2022 4:57 AM [facility] Blood BLOOD SPECIMEN / Unknown Venipuncture / Unknown 06/26/2022 4:18 AM CDT 06/26/2022 4:29 AM CDT Srinivasa Masetrs MD LAB - HEMATOLO GY ORDERABLES [facility] [address] [place] [address], [facility] [phone] * (ABNORMAL) COMPREHENSIVE METABOLIC PANEL (06/26/2022 4:18 AM CDT) Only the most recent of2 resultswithin the time period is included. BUN 63(H) 7 - 26 mg/dL 06/26/2022 5:00 AM [facility] Creatinine 3.60(H) 0.56 - 0.96 mg/dL 06/26/2022 5:00 AM [facility] Sodium 143 136 - 145 mmol/L 06/26/2022 5:00 AM [facility] Potassium 4.2 3.5 - 4.5 mmol/L 06/26/2022 5:00 AM [facility] Chloride 117(H) 98 - 107 mmol/L 06/26/2022 5:00 AM [facility] CO2 17(L) 22 - 29 mmol/L 06/26/2022 5:00 AM [facility] Glucose 159(H) 70 - 115 mg/dL 06/26/2022 5:00 AM [facility] Calcium 8.3(L) 8.4 - 10.2 mg/dL 06/26/2022 5:00 AM [facility] Protein Total 5.2(L) 6.0 - 8.3 g/dL 06/26/2022 5:00 AM [facility] Albumin 2.9(L) 3.4 - 5.0 g/dL 06/26/2022 5:00 AM [facility] Bilirubin Total 1.1 0.2 - 1.2 mg/dL 06/26/2022 5:00 AM [facility] Alkaline Phosphatase 22(L) 40 - 150 U/L 06/26/2022 5:00 AM [facility] ALT 27 5 - 55 U/L 06/26/2022 5:00 AM [facility] AST 34 5 - 34 U/L 06/26/2022 5:00 AM [facility] Anion Gap 13 8 - 18 06/26/2022 5:00 AM [facility] BUN/Creatinine Ratio 18 7 - 23 06/26/2022 5:00 AM [facility] Osmolality Calculated 317(H) 270 - 300 mOsm/kg 06/26/2022 5:00 AM [facility] Albumin/Globulin Ratio 1.3 1.1 - 2.3 06/26/2022 5:00 AM [facility] eGFR by CKD-EPI 13(L) >=90 mL/min/1.7 3 m2 06/26/2022 5:00 AM [facility] Blood BLOOD SPECIMEN / Unknown Venipuncture / Unknown 06/26/2022 4:18 AM CDT 06/26/2022 4:29 AM CDT Srinivasa Masters MD LAB - CHEMISTR Y ORDERABLES Performing Organization Address [facility] [address]/[facility] Co de Phone Number [address] [address], [facility] [phone] * (ABNORMAL) PHOSPHORUS BLOOD (06/26/2022 4:18 AM CDT) Phosphorus 2.6(L) 2.9 - 5.1 mg/dL 06/26/2022 5:00 AM [facility] Blood BLOOD SPECIMEN / Unknown Venipuncture / Unknown 06/26/2022 4:18 AM CDT 06/26/2022 4:29 AM CDT Srinivasa Masters MD LAB - CHEMISTR Y ORDERABLES Performing Organization Address City/[facility] [address]/ZIP Co de Phone Number [address] [address], [place] [phone] * (ABNORMAL) TROPONIN I (06/25/2022 11:26 AM CDT) Only the most recent of4 resultswithin the time period is included. Troponin I 0.066(H) <0.032 ng/mL 06/25/2022 12:09 PM CDT [facility] Blood BLOOD SPECIMEN / Unknown Venipuncture / Unknown 06/25/2022 11:26 AM CDT 06/25/2022 11:37 AM CDT Srinivasa Masters MD LAB - CHEMISTR Y ORDERABLES Performing Organization Address City/[facility] [address]/[facility] Co de Phone Number [address] [address], [facility] [phone] * (ABNORMAL) CORTISOL BLOOD PM (06/25/2022 11:26 AM CDT) Cortisol PM 29.7(H) 2.9 - 17.3 ug/dL 06/25/2022 12:25 PM CDT [facility] Blood BLOOD SPECIMEN / Unknown Venipuncture / Unknown 06/25/2022 11:26 AM CDT 06/25/2022 11:37 AM CDT Narrative [facility] - 06/25/2022 12:25 PM CDT Normal cortisol levels are generally highest in the morning hours and lowest from late evening through the compliance attorney hours (8 PM to 4 AM). ??The PM measurements of cortisol run approximately one-half to one-third of the AM values. Cale Brandon MD LAB - CHEMISTRY JAYDA RICKETTS [address] [address], [place] [phone] * (ABNORMAL) BLOOD GASES ART + COOX PANEL (06/25/2022 9:42 AM CDT) Only the most recent of4 resultswithin the time period is included. pH Arterial 7.29(L) 7.35 - 7.45 pH 06/25/2022 9:50 AM [facility] pO2 Arterial 97 80 - 100 mmHg 06/25/2022 9:50 AM [facility] pCO2 Arterial 36 35 - 45 mmHg 9:50 AM [facility] HCO3 Arterial 17(L) 20 - 30 mmol/l 06/25/2022 9:50 AM [facility] BE Arterial -8.5(L) -2.0 - 2.0 mmol/L 06/25/2022 9:50 AM [facility] Oxyhemoglobin Arterial 96.1 % 06/25/2022 9:50 AM [facility] Dexoyhemoglobin (HHB) % 1.3 % 06/25/2022 9:50 AM [facility] Methemoglobin 0.8 0.0 - 2.0 % 06/25/2022 9:50 AM [facility] Carboxyhemoglobin 1.8 0.0 - 2.0 % 2021 9:50 AM [facility] O2 Content Arterial 10.6 Interpret within clinical context mg/dL 06/25/2022 9:50 AM [facility] Hemoglobin by COOX 7.7(L) 12.0 - 15.6 g/dL 06/25/2022 9:50 AM [facility] O2 Saturation Arterial 99 90 - 100 % 06/25/2022 9:50 AM [facility] FI O2 Arterial 30.0 % 06/25/2022 9:50 AM [facility] Blood, arterial ARTERIAL BLOOD SPECIMEN / Unknown Arterial Puncture / Unknown 06/25/2022 9:42 AM T 06/25/2022 9:46 AM [facility] - 06/25/2022 9:50 AM [facility] Carboxyhemoglobin Normal Concentration: Non-smokers: 0-2%; Smokers: 0-9%; Toxic: >20% Cale Brandon MD LAB - BLOOD GASES OR DERABLES [facility] [address] [place] [address], [facility] [phone] * XR CHEST 1VW PORTABLE (06/25/2022 9:23 AM CDT) Only the most recent of2 resultswithin the time period is included. Anatomical Region Laterality Modality Chest Radiographic Mira ging 06/25/2022 1:11 PM CDT Narrative 06/25/2022 11:55 PM CDT PROCEDURE: ??XR CHEST 1VW PORTABLE, DATE/TIME OF EXAM: ??06/25/2022 9:26 AM, LOCATION ??[facility] INDICATION: R41.82: Altered mental status, unspecified altered mental status type ADDITIONAL CLINICAL INFORMATION: Ordering Provider Reason For Exam: ??confirm ET tube placement COMPARISON: Chest radiograph dated 06/25/2022; CT chest abdomen pelvis dated 06/24/2022 FINDINGS/IMPRESSION: Endotracheal tube terminates in the distal thoracic trachea approximately 1.8 cm above the sally. Retraction of the endotracheal tube is recommended. Esophageal temperature probe terminates in the proximal esophagus. Aortic valve prosthesis is reidentified. Bilateral central predominant perihilar airspace opacification, left greater than right. This is increased on the right and unchanged on the left. Suggestion of a small left pleural effusion. No pneumothorax is visible. The cardiomediastinal silhouette is partially obscured. The aorta is atherosclerotic. Report dictated by Massiel De Los Santos MD (radiology assistant). I, Lul Larson MD have personally reviewed and interpreted this examination/study. > Interpreting Provider: Lul Larson MD on 06/25/2022 11:55 PM Procedure Note Lul Larson MD - 06/25/2022 PROCEDURE: XR CHEST 1VW PORTABLE, DATE/TIME OF EXAM: 06/25/2022 9:26AM, LOCATION [facility] INDICATION: R41.82: Altered mental status, unspecified altered mental status type ADDITIONAL CLINICAL INFORMATION: Ordering Provider Reason For Exam: confirm ET tube placement COMPARISON: Chest radiograph dated 06/25/2022; CT chest abdomen pelvis dated06/24/2022 FINDINGS/IMPRESSION: Endotracheal tube terminates in the distal thoracic tracheaapproximately 1.8 cm above the sally. Retraction of the endotracheal tube is recommended. Esophageal temperature probe terminates in the proximal esophagus. Aortic valve prosthesis is reidentified. Bilateral central predominant perihilar airspace opacification, left greater than right. This is increased on the right and unchanged on the left. Suggestion of a small left pleural effusion. No pneumothorax is visible. The cardiomediastinal silhouette is partially obscured. Theaorta is atherosclerotic. Report dictated by Massiel De Los Santos MD (radiology assistant). I, Lul Larson MD have personally reviewed and interpreted this examination/study. > Interpreting Provider: Lul Larson MD on 06/25/2022 11:55 PM Cale Brandon MD DIAGNOSTIC IMAGING O RDERABLES * DRUG SCREEN EXPANDED TOXICOLOGY URINE PANEL (06/25/2022 5:00 AM CDT) [facility] Drug Screen Expanded SEE SCANNED REPORT 06/25/2022 3:52 PM CDT [facility] REF LAB NON INTERF Urine URINE / Unknown Collection / Unknown 06/25/2022 5:00 AM CDT 06/25/2022 5:10 AM CDT Srinivasa Masters MD LAB - URINE CH EMISTRY ORDERABLES [facility] REF LAB NON INTERF [address] [place] [address], [facility] [phone] * (ABNORMAL) HEPATIC FUNCTION PANEL (06/25/2022 4:59 AM CDT) Pathologist [facility] Protein Total 5.1(L) 6.0 - 8.3 g/dL 022 5:44 AM CDT [facility] Albumin 2.8(L) 3.4 - 5.0 g/dL 06/25/2022 5:44 AM CDT [facility] Bilirubin Total 1.8(H) 0.2 - 1.2 mg/dL 06/11 5:44 AM CDT [facility] Bilirubin Conjugated 1.0(H) 0.1 - 0.5 mg/dL 06/25/2022 5:44 AM [facility] Bilirubin Unconjugated 0.8 Unconjugated Bilirubin is a calculated value: Reference ranges have not been established. mg/dL 06/25/2022 5:44 AM [facility] Alkaline Phosphatase 25(L) 40 - 150 U/L 06/25/2022 5:44 AM [facility] ALT 29 5 - 55 U/L 06/25/2022 5:44 AM [facility] AST 36(H) 5 - 34 U/L 06/25/2022 5:44 AM [facility] Albumin/Globulin Ratio 1.2 1.1 - 2.3 06/25/2022 5:44 AM [facility] Blood BLOOD SPECIMEN / Unknown Venipuncture / Unknown 06/25/2022 4:59 AM CDT 06/25/2022 5:09 AM CDT Terrence Anderson MD LAB - CHEMISTRY ORDE LILIAM [address] [address], [facility] [phone] * TSH REFLEX FREE T4 (06/25/2022 3:37 AM CDT) TSH 1.088 0.350 - 4.940 uIU/mL 06/25/2022 5:23 AM T [facility] Blood BLOOD SPECIMEN / Unknown Venipuncture / Unknown 06/25/2022 3:37 AM CDT 06/25/2022 3:44 AM CDT Srinivasa Masters MD LAB - CHEMISTR Y ORDERABLES [address] [address], [place] [phone] * VITAMIN B12 (06/25/2022 3:37 AM CDT) Vitamin B12 601 213 - 816 pg/mL 06/25/2022 5:23 AM CDT [facility] Blood BLOOD SPECIMEN / Unknown Venipuncture / Unknown 06/25/2022 3:37 AM CDT 06/25/2022 3:44 AM CDT Srinivasa Masters MD LAB - CHEMISTR Y ORDERABLES Performing Organization Address City/[facility] [address]/ZIP Co de Phone Number [address] [address], [place] [phone] * SODIUM URINE RANDOM (06/25/2022 3:23 AM CDT) Sodium Urine 26 Not Established mmol/L 06/25/2022 3:45 AM CDT [facility] Urine URINE SPECIMEN OBTAINED BY CLEAN CATCH PROCEDURE / Unknown Collection / Unknown 06/25/2022 3:23 AM CDT 06/25/2022 3:28 AM CDT Terrence Anderson MD LAB - URINE CHEMISTR Y ORDERABLES Performing Organization Address City/[facility] [address]/ZIP Co de Phone Number [address] [address], [place] [phone] * CREATININE URINE RANDOM (06/25/2022 3:23 AM CDT) Creatinine Urine 78 Not Established mg/dL 06/25/2022 3:45 AM CDT [facility] Urine URINE SPECIMEN OBTAINED BY CLEAN CATCH PROCEDURE / Unknown Collection / Unknown 06/25/2022 3:23 AM CDT 06/25/2022 3:28 AM CDT Terrence Anderson MD LAB - URINE CHEMISTR Y ORDERABLES [address] [address], [place] [phone] * TRANSFUSE PLATELET PHERESIS UNIT(S) (06/25/2022 2:11 AM CDT) Terrence Anderson MD NURSING - BLOOD PROD TRANSFUSION * TRANSFUSE RED BLOOD CELL LEUKOREDUCED UNIT(S) (06/25/2022 1:54 AM CDT) Esa Sevilla DO NURSING - BLOOD PROD TRANSFUSION * PREPARE PLATELET PHERESIS UNIT(S), 1 Units (06/25/2022 1:38 AM CDT) Unit Description LR PLT Phere B7 [facility] BLOOD [facility]ANK LAB Unit ABO O [facility] Unit Rh POS [facility] Product Number P27 [facility] B LOOD BANK LAB Unit Donor # [id number] [facility] Unit Status transfused [facility] B[facility] OD [facility] Product Code [id number] [facility] BLO OD [facility] LAB Blood Type Barcode 5100 [facility] Expiration Date S BLOOD BANK LAB Blood Bank BLOOD SPECIMEN / Unknown 06/25/2022 12:15 AM CDT Terrence Anderson MD LAB - BLOOD BANK ORD ERABLES [facility] [address] [place] [address], [facility] [phone] * CT LUMBAR SPINE WO CONTRAST - T/L-spine trauma, Spine fracture (06/25/2022 1:12 AM CDT) Anatomical Region Laterality Modality Spine Computed Tomogra phy 06/25/2022 1:16 AM CDT Impressions 06/25/2022 4:08 PM CDT IMPRESSION: Head: 1.Small volume acute subdural hemorrhage along the right frontal convexity. No significant mass effect. Cervical, thoracic and lumbar spine: 1.No fracture of the cervical, thoracic and lumbar spine. 2.Multilevel degenerative changes in the thoracic and lumbar spine with spinal canal and foraminal stenosis, as described above. Please refer to the separately dictated report of CT scan of the chest, abdomen and pelvis for intrathoracic and intra-abdominal findings. These findings were discussed with the patient's care provider, Dr. Ross by Dr. Jordana Kim via telephone at 4:07 p.m. on 06/25/2022 with readback comprehension and verification. > Dictated by Italo Samaniego MD (radiology assistant). I, Jordana Kim MD have personally reviewed and interpreted this examination/study. > Interpreting Provider: Jordana Kim MD on 06/25/2022 4:08 PM Narrative 06/25/2022 4:08 PM CDT PROCEDURE: ??CT HEAD WO CONTRAST, CT CERVICAL SPINE WO CONTRAST, CT THORACIC SPINE WO CONTRAST, CT LUMBAR SPINE WO CONTRAST, DATE/TIME OF EXAM: 06/25/2022 1:13 AM, LOCATION ??[facility] INDICATION: R41.82: Altered mental status, unspecified altered mental status type ADDITIONAL CLINICAL INFORMATION: Ordering Provider Reason For Exam: ??bleed COMPARISON: None. EXAMINATIONS: CT of the head without intravenous contrast CT of the cervical spine without intravenous contrast CT of the thoracic spine without intravenous contrast CT of the lumbar spine without intravenous contrast TECHNIQUE: CT of the head, cervical spine, thoracic spine and lumbar spine was performed without intravenous contrast according to standard protocol. CT dose reduction technique was used, including Automated Exposure Control. FINDINGS: Head: There is a small volume acute subdural hemorrhage along the right frontal convexity measuring approximately 2 mm in maximum thickness. There is no significant mass effect. There is no hydrocephalus or midline shift. 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 There are moderate chronic microvascular ischemic changes in the supratentorial white matter. Mild generalized cerebral and cerebellar volume loss is noted. Intracranial carotid artery calcifications are present. There is no significant opacification of the paranasal sinuses and tympanomastoid cavities.The orbits are unremarkable. Cervical spine: There is no fracture or traumatic subluxation. The prevertebral soft tissues are within normal limits. The cervical lordosis is maintained.Multilevel degenerative changes are seen without spinal canal or foraminal stenosis.There are no aggressive appearing lytic or sclerotic bone lesions. Thoracic spine: There is no fracture or traumatic subluxation. The thoracic curvature is maintained.Multilevel degenerative changes are seen with calcified disc herniations. This results in mild to moderate spinal canal stenosis at multiple levels, most pronounced at T9-10 with spinal cord impingement.There are no aggressive appearing lytic or sclerotic bone lesions. A bone island is seen in the right posterior arch of T8 vertebral body. Lumbar spine: There is no fracture or traumatic subluxation of the lumbar spine. The included sacrum is intact. Multilevel degenerative changes are present. There is moderate spinal canal stenosis at L3-4 and moderate to severe spinal canal stenosis at L4-5. Moderate to severe stenosis of bilateral L4-5 and L5-S1 neural foramina is seen. There are no aggressive appearing lytic or sclerotic bone lesions. The paraspinal soft tissues are unremarkable. Extraspinal findings: Old fracture of right 11th rib. Segmental atelectasis of the right lower lobe. Procedure Note Jordana Kim MD - 06/25/2022 PROCEDURE: CT HEAD WO CONTRAST, CT CERVICAL SPINE WO CONTRAST, CTTHORACIC SPINE WO CONTRAST, CT LUMBAR SPINE WO CONTRAST, DATE/TIME OF EXAM: 06/25/2022 1:13 AM, LOCATION [facility] INDICATION: R41.82: Altered mental status, unspecified altered mental status type ADDITIONAL CLINICAL INFORMATION: Ordering Provider Reason For Exam: bleed COMPARISON: None. EXAMINATIONS: CT of the head without intravenous contrast CT of the cervical spine without intravenous contrast CT of the thoracic spine without intravenous contrast CT of the lumbar spine without intravenous contrast TECHNIQUE: CT of the head, cervical spine, thoracic spine and lumbarspine was performed without intravenous contrast according to standardprotocol. CT dose reduction technique was used, including Automated ExposureControl. FINDINGS: Head: There is a small volume acute subdural hemorrhage along the rightfrontal convexity measuring approximately 2 mm in maximum thickness. There is no significant mass effect. There is no hydrocephalus or midline shift. 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 Mild generalized cerebral and cerebellar volume loss is noted. Intracranial carotid artery calcifications are present. There is no significant opacification of the paranasal sinuses and tympanomastoid cavities.The orbits are unremarkable. Cervical spine: There is no fracture or traumatic subluxation. The prevertebral soft tissues are within normal limits. The cervical lordosis is maintained.Multilevel degenerative changes are seen without spinal canal or foraminal stenosis.There are no aggressive appearing lytic or sclerotic bone lesions. Thoracic spine: There is no fracture or traumatic subluxation. The thoracic curvature is maintained.Multilevel degenerative changes are seen with calcified disc herniations. This results in mild to moderate spinal canal stenosis at multiple levels, most pronounced at T9-10 with spinal cord impingement.There are no aggressive appearing lytic or sclerotic bone lesions. A bone island is seen in the right posteriorarch of T8 vertebral body. Lumbar spine: There is no fracture or traumatic subluxation of the lumbar spine. The included sacrum is intact. Multilevel degenerative changes are present. There is moderate spinalcanal stenosis at L3-4 and moderate to severe spinal canal stenosis at L4-5. Moderate to severe stenosis of bilateral L4-5 and L5-S1 neural foraminais seen. There are no aggressive appearing lytic or sclerotic bone lesions. The paraspinal soft tissues are unremarkable. Extraspinal findings: Old fracture of right 11th rib. Segmental atelectasis of the right lower lobe. IMPRESSION: Head: 1.Small volume acute subdural hemorrhage along the right frontalconvexity. No significant mass effect. Cervical, thoracic and lumbar spine: 1.No fracture of the cervical, thoracic and lumbar spine. 2.Multilevel degenerative changes in the thoracic and lumbar spine with spinal canal and foraminal stenosis, as described above. Please refer to the separately dictated report of CT scan of the chest, abdomen and pelvis for intrathoracic and intra-abdominal findings. These findings were discussed with the patient's care provider, by Dr. Jordana Kim via telephone at 4:07 p.m. on 06/25/2022 withreadback comprehension and verification. > Dictated by Italo Samaniego MD (radiology assistant). I, Jordana Kim MD have personally reviewed and interpreted this examination/study. > Interpreting Provider: Jordana Kim MD on 06/25/2022 4:08 PM Esa Claire Di DO CT ORDERABLES * CT THORACIC SPINE WO CONTRAST - T/L-spine trauma, spine fracture (06/25/2022 1:12 AM CDT) Anatomical Region Laterality Modality Spine Computed Tomogra phy 06/25/2022 1:16 AM CDT Impressions 06/25/2022 4:08 PM CDT IMPRESSION: Head: 1.Small volume acute subdural hemorrhage along the right frontal convexity. No significant mass effect. Cervical, thoracic and lumbar spine: 1.No fracture of the cervical, thoracic and lumbar spine. 2.Multilevel degenerative changes in the thoracic and lumbar spine with spinal canal and foraminal stenosis, as described above. Please refer to the separately dictated report of CT scan of the chest, abdomen and pelvis for intrathoracic and intra-abdominal findings. These findings were discussed with the patient's care provider, Dr. Ross by Dr. Jordana Kim via telephone at 4:07 p.m. on 06/25/2022 with readback comprehension and verification. > Dictated by Italo Samaniego MD (radiology assistant). I, Jordana Kim MD have personally reviewed and interpreted this examination/study. > Interpreting Provider: Jordana Kim MD on 06/25/2022 4:08 PM Narrative 06/25/2022 4:08 PM CDT PROCEDURE: ??CT HEAD WO CONTRAST, CT CERVICAL SPINE WO CONTRAST, CT THORACIC SPINE WO CONTRAST, CT LUMBAR SPINE WO CONTRAST, DATE/TIME OF EXAM: 06/25/2022 1:13 AM, LOCATION ??[facility] INDICATION: R41.82: Altered mental status, unspecified altered mental status type ADDITIONAL CLINICAL INFORMATION: Ordering Provider Reason For Exam: ??bleed COMPARISON: None. EXAMINATIONS: CT of the head without intravenous contrast CT of the cervical spine without intravenous contrast CT of the thoracic spine without intravenous contrast CT of the lumbar spine without intravenous contrast TECHNIQUE: CT of the head, cervical spine, thoracic spine and lumbar spine was performed without intravenous contrast according to standard protocol. CT dose reduction technique was used, including Automated Exposure Control. FINDINGS: Head: There is a small volume acute subdural hemorrhage along the right frontal convexity measuring approximately 2 mm in maximum thickness. There is no significant mass effect. There is no hydrocephalus or midline shift. 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 There are moderate chronic microvascular ischemic changes in the supratentorial white matter. Mild generalized cerebral and cerebellar volume loss is noted. Intracranial carotid artery calcifications are present. There is no significant opacification of the paranasal sinuses and tympanomastoid cavities.The orbits are unremarkable. Cervical spine: There is no fracture or traumatic subluxation. The prevertebral soft tissues are within normal limits. The cervical lordosis is maintained.Multilevel degenerative changes are seen without spinal canal or foraminal stenosis.There are no aggressive appearing lytic or sclerotic bone lesions. Thoracic spine: There is no fracture or traumatic subluxation. The thoracic curvature is maintained.Multilevel degenerative changes are seen with calcified disc herniations. This results in mild to moderate spinal canal stenosis at multiple levels, most pronounced at T9-10 with spinal cord impingement.There are no aggressive appearing lytic or sclerotic bone lesions. A bone island is seen in the right posterior arch of T8 vertebral body. Lumbar spine: There is no fracture or traumatic subluxation of the lumbar spine. The included sacrum is intact. Multilevel degenerative changes are present. There is moderate spinal canal stenosis at L3-4 and moderate to severe spinal canal stenosis at L4-5. Moderate to severe stenosis of bilateral L4-5 and L5-S1 neural foramina is seen. There are no aggressive appearing lytic or sclerotic bone lesions. The paraspinal soft tissues are unremarkable. Extraspinal findings: Old fracture of right 11th rib. Segmental atelectasis of the right lower lobe. Procedure Note Jordana Kim MD - 06/25/2022 PROCEDURE: CT HEAD WO CONTRAST, CT CERVICAL SPINE WO CONTRAST, CTTHORACIC SPINE WO CONTRAST, CT LUMBAR SPINE WO CONTRAST, DATE/TIME OF EXAM: 06/25/2022 1:13 AM, LOCATION [facility] INDICATION: R41.82: Altered mental status, unspecified altered mental status type ADDITIONAL CLINICAL INFORMATION: Ordering Provider Reason For Exam: bleed COMPARISON: None. EXAMINATIONS: CT of the head without intravenous contrast CT of the cervical spine without intravenous contrast CT of the thoracic spine without intravenous contrast CT of the lumbar spine without intravenous contrast TECHNIQUE: CT of the head, cervical spine, thoracic spine and lumbarspine was performed without intravenous contrast according to standardprotocol. CT dose reduction technique was used, including Automated ExposureControl. FINDINGS: Head: There is a small volume acute subdural hemorrhage along the rightfrontal convexity measuring approximately 2 mm in maximum thickness. There is no significant mass effect. There is no hydrocephalus or midline shift. 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 Mild generalized cerebral and cerebellar volume loss is noted. Intracranial carotid artery calcifications are present. There is no significant opacification of the paranasal sinuses and tympanomastoid cavities.The orbits are unremarkable. Cervical spine: There is no fracture or traumatic subluxation. The prevertebral soft tissues are within normal limits. The cervical lordosis is maintained.Multilevel degenerative changes are seen without spinal canal or foraminal stenosis.There are no aggressive appearing lytic or sclerotic bone lesions. Thoracic spine: There is no fracture or traumatic subluxation. The thoracic curvature is maintained.Multilevel degenerative changes are seen with calcified disc herniations. This results in mild to moderate spinal canal stenosis at multiple levels, most pronounced at T9-10 with spinal cord impingement.There are no aggressive appearing lytic or sclerotic bone lesions. A bone island is seen in the right posteriorarch of T8 vertebral body. Lumbar spine: There is no fracture or traumatic subluxation of the lumbar spine. The included sacrum is intact. Multilevel degenerative changes are present. There is moderate spinalcanal stenosis at L3-4 and moderate to severe spinal canal stenosis at L4-5. Moderate to severe stenosis of bilateral L4-5 and L5-S1 neural foraminais seen. There are no aggressive appearing lytic or sclerotic bone lesions. The paraspinal soft tissues are unremarkable. Extraspinal findings: Old fracture of right 11th rib. Segmental atelectasis of the right lower lobe. IMPRESSION: Head: 1.Small volume acute subdural hemorrhage along the right frontalconvexity. No significant mass effect. Cervical, thoracic and lumbar spine: 1.No fracture of the cervical, thoracic and lumbar spine. 2.Multilevel degenerative changes in the thoracic and lumbar spine with spinal canal and foraminal stenosis, as described above. Please refer to the separately dictated report of CT scan of the chest, abdomen and pelvis for intrathoracic and intra-abdominal findings. These findings were discussed with the patient's care provider, by Dr. Jordana Kim via telephone at 4:07 p.m. on 06/25/2022 withreadback comprehension and verification. > Dictated by Italo Samaniego MD (radiology assistant). I, Jordana Kim MD have personally reviewed and interpreted this examination/study. > Interpreting Provider: Jordana Kim MD on 06/25/2022 4:08 PM Esa Sevilla DO CT ORDERABLES * CT CERVICAL SPINE WO CONTRAST - C-Spine Trauma, Spine fracture (06/25/2022 1:12 AM CDT) Anatomical Region Laterality Modality Spine Computed Tomogra phy 06/25/2022 1:16 AM CDT Impressions 06/25/2022 4:08 PM CDT IMPRESSION: Head: 1.Small volume acute subdural hemorrhage along the right frontal convexity. No significant mass effect. Cervical, thoracic and lumbar spine: 1.No fracture of the cervical, thoracic and lumbar spine. 2.Multilevel degenerative changes in the thoracic and lumbar spine with spinal canal and foraminal stenosis, as described above. Please refer to the separately dictated report of CT scan of the chest, abdomen and pelvis for intrathoracic and intra-abdominal findings. These findings were discussed with the patient's care provider, Dr. Ross by Dr. Jordana Kim via telephone at 4:07 p.m. on 06/25/2022 with readback comprehension and verification. > Dictated by Italo Samaniego MD (radiology assistant). I, Jordana Kim MD have personally reviewed and interpreted this examination/study. > Interpreting Provider: Jordana Kim MD on 06/25/2022 4:08 PM Narrative 06/25/2022 4:08 PM CDT PROCEDURE: ??CT HEAD WO CONTRAST, CT CERVICAL SPINE WO CONTRAST, CT THORACIC SPINE WO CONTRAST, CT LUMBAR SPINE WO CONTRAST, DATE/TIME OF EXAM: 06/25/2022 1:13 AM, LOCATION ??[facility] INDICATION: R41.82: Altered mental status, unspecified altered mental status type ADDITIONAL CLINICAL INFORMATION: Ordering Provider Reason For Exam: ??bleed COMPARISON: None. EXAMINATIONS: CT of the head without intravenous contrast CT of the cervical spine without intravenous contrast CT of the thoracic spine without intravenous contrast CT of the lumbar spine without intravenous contrast TECHNIQUE: CT of the head, cervical spine, thoracic spine and lumbar spine was performed without intravenous contrast according to standard protocol. CT dose reduction technique was used, including Automated Exposure Control. FINDINGS: Head: There is a small volume acute subdural hemorrhage along the right frontal convexity measuring approximately 2 mm in maximum thickness. There is no significant mass effect. There is no hydrocephalus or midline shift. 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 There are moderate chronic microvascular ischemic changes in the supratentorial white matter. Mild generalized cerebral and cerebellar volume loss is noted. Intracranial carotid artery calcifications are present. There is no significant opacification of the paranasal sinuses and tympanomastoid cavities.The orbits are unremarkable. Cervical spine: There is no fracture or traumatic subluxation. The prevertebral soft tissues are within normal limits. The cervical lordosis is maintained.Multilevel degenerative changes are seen without spinal canal or foraminal stenosis.There are no aggressive appearing lytic or sclerotic bone lesions. Thoracic spine: There is no fracture or traumatic subluxation. The thoracic curvature is maintained.Multilevel degenerative changes are seen with calcified disc herniations. This results in mild to moderate spinal canal stenosis at multiple levels, most pronounced at T9-10 with spinal cord impingement.There are no aggressive appearing lytic or sclerotic bone lesions. A bone island is seen in the right posterior arch of T8 vertebral body. Lumbar spine: There is no fracture or traumatic subluxation of the lumbar spine. The included sacrum is intact. Multilevel degenerative changes are present. There is moderate spinal canal stenosis at L3-4 and moderate to severe spinal canal stenosis at L4-5. Moderate to severe stenosis of bilateral L4-5 and L5-S1 neural foramina is seen. There are no aggressive appearing lytic or sclerotic bone lesions. The paraspinal soft tissues are unremarkable. Extraspinal findings: Old fracture of right 11th rib. Segmental atelectasis of the right lower lobe. Procedure Note Jordana Kim MD - 06/25/2022 PROCEDURE: CT HEAD WO CONTRAST, CT CERVICAL SPINE WO CONTRAST, CTTHORACIC SPINE WO CONTRAST, CT LUMBAR SPINE WO CONTRAST, DATE/TIME OF EXAM: 06/25/2022 1:13 AM, LOCATION [facility] INDICATION: R41.82: Altered mental status, unspecified altered mental status type ADDITIONAL CLINICAL INFORMATION: Ordering Provider Reason For Exam: bleed COMPARISON: None. EXAMINATIONS: CT of the head without intravenous contrast CT of the cervical spine without intravenous contrast CT of the thoracic spine without intravenous contrast CT of the lumbar spine without intravenous contrast TECHNIQUE: CT of the head, cervical spine, thoracic spine and lumbarspine was performed without intravenous contrast according to standardprotocol. CT dose reduction technique was used, including Automated ExposureControl. FINDINGS: Head: There is a small volume acute subdural hemorrhage along the rightfrontal convexity measuring approximately 2 mm in maximum thickness. There is no significant mass effect. There is no hydrocephalus or midline shift. 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 Mild generalized cerebral and cerebellar volume loss is noted. Intracranial carotid artery calcifications are present. There is no significant opacification of the paranasal sinuses and tympanomastoid cavities.The orbits are unremarkable. Cervical spine: There is no fracture or traumatic subluxation. The prevertebral soft tissues are within normal limits. The cervical lordosis is maintained.Multilevel degenerative changes are seen without spinal canal or foraminal stenosis.There are no aggressive appearing lytic or sclerotic bone lesions. Thoracic spine: There is no fracture or traumatic subluxation. The thoracic curvature is maintained.Multilevel degenerative changes are seen with calcified disc herniations. This results in mild to moderate spinal canal stenosis at multiple levels, most pronounced at T9-10 with spinal cord impingement.There are no aggressive appearing lytic or sclerotic bone lesions. A bone island is seen in the right posteriorarch of T8 vertebral body. Lumbar spine: There is no fracture or traumatic subluxation of the lumbar spine. The included sacrum is intact. Multilevel degenerative changes are present. There is moderate spinalcanal stenosis at L3-4 and moderate to severe spinal canal stenosis at L4-5. Moderate to severe stenosis of bilateral L4-5 and L5-S1 neural foraminais seen. There are no aggressive appearing lytic or sclerotic bone lesions. The paraspinal soft tissues are unremarkable. Extraspinal findings: Old fracture of right 11th rib. Segmental atelectasis of the right lower lobe. IMPRESSION: Head: 1.Small volume acute subdural hemorrhage along the right frontalconvexity. No significant mass effect. Cervical, thoracic and lumbar spine: 1.No fracture of the cervical, thoracic and lumbar spine. 2.Multilevel degenerative changes in the thoracic and lumbar spine with spinal canal and foraminal stenosis, as described above. Please refer to the separately dictated report of CT scan of the chest, abdomen and pelvis for intrathoracic and intra-abdominal findings. These findings were discussed with the patient's care provider, by Dr. Jordana Kim via telephone at 4:07 p.m. on 06/25/2022 withreadback comprehension and verification. > Dictated by Italo Samaniego MD (radiology assistant). I, Jordana Kim MD have personally reviewed and interpreted this examination/study. > Interpreting Provider: Jordana Kim MD on 06/25/2022 4:08 PM Esa Sevilla DO CT ORDERABLES * CT HEAD WO CONTRAST (06/25/2022 1:12 AM CDT) Anatomical Region Laterality Modality Head Computed Tomogra phy 06/25/2022 1:16 AM CDT Impressions 06/25/2022 4:08 PM CDT IMPRESSION: Head: 1.Small volume acute subdural hemorrhage along the right frontal convexity. No significant mass effect. Cervical, thoracic and lumbar spine: 1.No fracture of the cervical, thoracic and lumbar spine. 2.Multilevel degenerative changes in the thoracic and lumbar spine with spinal canal and foraminal stenosis, as described above. Please refer to the separately dictated report of CT scan of the chest, abdomen and pelvis for intrathoracic and intra-abdominal findings. These findings were discussed with the patient's care provider, Dr. Ross by Dr. Jordana Kim via telephone at 4:07 p.m. on 06/25/2022 with readback comprehension and verification. > Dictated by Italo Samaniego MD (radiology assistant). I, Jordana Kim MD have personally reviewed and interpreted this examination/study. > Interpreting Provider: Jordana Kim MD on 06/25/2022 4:08 PM Narrative 06/25/2022 4:08 PM CDT PROCEDURE: ??CT HEAD WO CONTRAST, CT CERVICAL SPINE WO CONTRAST, CT THORACIC SPINE WO CONTRAST, CT LUMBAR SPINE WO CONTRAST, DATE/TIME OF EXAM: 06/25/2022 1:13 AM, LOCATION ??[facility] INDICATION: R41.82: Altered mental status, unspecified altered mental status type ADDITIONAL CLINICAL INFORMATION: Ordering Provider Reason For Exam: ??bleed COMPARISON: None. EXAMINATIONS: CT of the head without intravenous contrast CT of the cervical spine without intravenous contrast CT of the thoracic spine without intravenous contrast CT of the lumbar spine without intravenous contrast TECHNIQUE: CT of the head, cervical spine, thoracic spine and lumbar spine was performed without intravenous contrast according to standard protocol. CT dose reduction technique was used, including Automated Exposure Control. FINDINGS: Head: There is a small volume acute subdural hemorrhage along the right frontal convexity measuring approximately 2 mm in maximum thickness. There is no significant mass effect. There is no hydrocephalus or midline shift. 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 There are moderate chronic microvascular ischemic changes in the supratentorial white matter. Mild generalized cerebral and cerebellar volume loss is noted. Intracranial carotid artery calcifications are present. There is no significant opacification of the paranasal sinuses and tympanomastoid cavities.The orbits are unremarkable. Cervical spine: There is no fracture or traumatic subluxation. The prevertebral soft tissues are within normal limits. The cervical lordosis is maintained.Multilevel degenerative changes are seen without spinal canal or foraminal stenosis.There are no aggressive appearing lytic or sclerotic bone lesions. Thoracic spine: There is no fracture or traumatic subluxation. The thoracic curvature is maintained.Multilevel degenerative changes are seen with calcified disc herniations. This results in mild to moderate spinal canal stenosis at multiple levels, most pronounced at T9-10 with spinal cord impingement.There are no aggressive appearing lytic or sclerotic bone lesions. A bone island is seen in the right posterior arch of T8 vertebral body. Lumbar spine: There is no fracture or traumatic subluxation of the lumbar spine. The included sacrum is intact. Multilevel degenerative changes are present. There is moderate spinal canal stenosis at L3-4 and moderate to severe spinal canal stenosis at L4-5. Moderate to severe stenosis of bilateral L4-5 and L5-S1 neural foramina is seen. There are no aggressive appearing lytic or sclerotic bone lesions. The paraspinal soft tissues are unremarkable. Extraspinal findings: Old fracture of right 11th rib. Segmental atelectasis of the right lower lobe. Procedure Note Jordana Kim MD - 06/25/2022 PROCEDURE: CT HEAD WO CONTRAST, CT CERVICAL SPINE WO CONTRAST, CTTHORACIC SPINE WO CONTRAST, CT LUMBAR SPINE WO CONTRAST, DATE/TIME OF EXAM: 06/25/2022 1:13 AM, LOCATION [facility] INDICATION: R41.82: Altered mental status, unspecified altered mental status type ADDITIONAL CLINICAL INFORMATION: Ordering Provider Reason For Exam: bleed COMPARISON: None. EXAMINATIONS: CT of the head without intravenous contrast CT of the cervical spine without intravenous contrast CT of the thoracic spine without intravenous contrast CT of the lumbar spine without intravenous contrast TECHNIQUE: CT of the head, cervical spine, thoracic spine and lumbarspine was performed without intravenous contrast according to standardprotocol. CT dose reduction technique was used, including Automated ExposureControl. FINDINGS: Head: There is a small volume acute subdural hemorrhage along the rightfrontal convexity measuring approximately 2 mm in maximum thickness. There is no significant mass effect. There is no hydrocephalus or midline shift. 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 Mild generalized cerebral and cerebellar volume loss is noted. Intracranial carotid artery calcifications are present. There is no significant opacification of the paranasal sinuses and tympanomastoid cavities.The orbits are unremarkable. Cervical spine: There is no fracture or traumatic subluxation. The prevertebral soft tissues are within normal limits. The cervical lordosis is maintained.Multilevel degenerative changes are seen without spinal canal or foraminal stenosis.There are no aggressive appearing lytic or sclerotic bone lesions. Thoracic spine: There is no fracture or traumatic subluxation. The thoracic curvature is maintained.Multilevel degenerative changes are seen with calcified disc herniations. This results in mild to moderate spinal canal stenosis at multiple levels, most pronounced at T9-10 with spinal cord impingement.There are no aggressive appearing lytic or sclerotic bone lesions. A bone island is seen in the right posteriorarch of T8 vertebral body. Lumbar spine: There is no fracture or traumatic subluxation of the lumbar spine. The included sacrum is intact. Multilevel degenerative changes are present. There is moderate spinalcanal stenosis at L3-4 and moderate to severe spinal canal stenosis at L4-5. Moderate to severe stenosis of bilateral L4-5 and L5-S1 neural foraminais seen. There are no aggressive appearing lytic or sclerotic bone lesions. The paraspinal soft tissues are unremarkable. Extraspinal findings: Old fracture of right 11th rib. Segmental atelectasis of the right lower lobe. IMPRESSION: Head: 1.Small volume acute subdural hemorrhage along the right frontalconvexity. No significant mass effect. Cervical, thoracic and lumbar spine: 1.No fracture of the cervical, thoracic and lumbar spine. 2.Multilevel degenerative changes in the thoracic and lumbar spine with spinal canal and foraminal stenosis, as described above. Please refer to the separately dictated report of CT scan of the chest, abdomen and pelvis for intrathoracic and intra-abdominal findings. These findings were discussed with the patient's care provider, by Dr. Jordana Kim via telephone at 4:07 p.m. on 06/25/2022 withreadback comprehension and verification. > Dictated by Italo Samaniego MD (radiology assistant). I, Jordana Kim MD have personally reviewed and interpreted this examination/study. > Interpreting Provider: Jordana Kim MD on 06/25/2022 4:08 PM Esa Sevilla DO CT ORDERABLES * LACTIC ACID BLOOD REFLEX TO REPEAT (06/25/2022 12:46 AM CDT) Lactic Acid-Stat 0.6 <=2.0 mmol/L 06/25/2022 1:16 AM CDT [facility] Blood BLOOD SPECIMEN / Unknown Venipuncture / Unknown 06/25/2022 12:46 AM CDT 06/25/2022 12:55 AM CDT Esa Sevilla DO LAB - CHEMISTRY JAYDA RICKETTS [facility] Organization Address City/[facility] [address]/[facility] Co de Phone Number [facility] [address] [place] [id number], [facility] [phone] * PROCALCITONIN LEVEL (06/25/2022 12:46 AM CDT) PROCALCITONIN 0.10 <=0.10 ng/mL 06/25/2022 1:45 AM CDT [facility] Blood BLOOD SPECIMEN / Unknown Venipuncture / Unknown 06/25/2022 12:46 AM CDT 06/25/2022 12:50 AM CDT Narrative [facility] - 06/25/2022 1:45 AM CDT The change in procalcitonin (PCT) concentration over time provides support in decision making on antibiotic discontinuation for suspected or confirmed septic patients. Follow-up samples should be tested once every 1-2 days based upon physician discretion taking into account the patient? s evolution and progress. Consider discontinuation of ??antibiotic therapy ??if the PCT current ??is <= 0.5 ng/mL or if the delta PCT is > 80%. ??Duration of antibiotics should not be determined solely on PCT; established guidelines for the indication should be followed. ? PCT peak: ??Highest observed PCT concentration ? PCT current: Most recent PCT concentration ? Calculate delta PCT using the following equation: ?Delta PCT ??= ?? PCT Peak ? PCT current ??X 100% ? PCT Peak The Change in Procalcitonin Calculator is available at [email or web address] ?? If clinical picture has not improved and PCT remains high, reevaluate and consider treatment failure or other causes. Esa Sevilla DO LAB - CHEMISTRY JAYDA RICKETTS Performing Organization Address [facility] [address]/[facility] Co de Phone Number [place] [id number] [place] [address], [place] [phone] * CULTURE BLOOD (06/25/2022 12:46 AM CDT) Only the most recent of2 resultswithin the time period is included. [facility] Culture No growth day 5 YOMI 06/30/2022 4:31 AM CDT [facility] Blood PERIPHERAL BLOOD / Unknown Venipuncture / Unknown 06/25/2022 12:46 AM CDT 06/25/2022 12:50 AM CDT Esa Sevilla DO LAB - MICROBIOLOGY O RDERAANNETTE Performing Organization Address City/[facility] [address]/[facility] Co de Phone Number [facility] [address] [place] [address], [facility] [phone] * (ABNORMAL) CK BLOOD (06/25/2022 12:46 AM CDT) Only the most recent of2 resultswithin the time period is included. CK Total 477(H) 30 - 200 U/L 06/25/2022 1:20 AM CDT [facility] Blood BLOOD SPECIMEN / Unknown Venipuncture / Unknown 06/25/2022 12:46 AM CDT 06/25/2022 12:56 AM CDT Esa Sevilla LAB - CHEMISTRY JAYDA RICKETTS [facility] [address] [place] [address], [facility] [phone] * XR PELVIS 1 OR 2VW (06/25/2022 12:37 AM CDT) Anatomical Region Laterality Modality Pelvis Radiographic M[place] ging 06/25/2022 12:1 2 AM CDT Impressions 06/25/2022 11:19 AM CDT IMPRESSION: No acute osseous abnormality. Report drafted by Italo Samaniego MD (radiology assistant) Ria Gilmore MD have personally reviewed and interpreted this examination/study. > Interpreting Provider: Ria Galarza MD on 06/25/2022 11:19 AM Narrative 06/25/2022 11:19 AM CDT EXAMINATION: XR PELVIS 1 OR 2VW HISTORY: Trauma Fracture suspected COMPARISON: None. FINDINGS: No acute fracture is identified. The femoral heads appear well-seated within their respective acetabula. The joint spaces are preserved. The pubic symphysis is intact. The osseous architecture and density are normal. The sacroiliac joints are normal. Procedure Note Ria Galarza MD - 06/25/2022 EXAMINATION: XR PELVIS 1 OR 2VW HISTORY: Trauma Fracture suspected COMPARISON: None. FINDINGS: No acute fracture is identified. The femoral heads appear well-seated within their respective acetabula. The joint spaces are preserved. The pubic symphysis is intact. The osseous architecture and density arenormal. The sacroiliac joints are normal. IMPRESSION: No acute osseous abnormality. Report drafted by Italo Samaniego MD (radiology assistant) Ria Gilmore MD have personally reviewed and interpreted this examination/study. > Interpreting Provider: Ria Galarza MD on 06/25/2022 11:19 AM Esa Sevilla DO DIAGNOSTIC IMAGING O RDERABLES * BLOOD TYPE VERIFICATION (06/25/2022 12:37 AM CDT) ABO Rh A NEG 06/25/2022 1:1 2 AM CDT [facility] Blood Bank BLOOD SPECIMEN / Unknown Lab Venipuncture / Unknown 06/25/2022 12:37 AM CDT 06/25/2022 12:45 AM CDT Karina You MD LAB - BLOOD BANK ORD ERABLES [facility] [address] [place] [address], [facility] [phone] * (ABNORMAL) URINALYSIS REFLEX TO MICROSCOPIC NO CULTURE (06/25/2022 12:33 AM CDT) Color UA Yellow Straw, Yellow 06/25/2022 12:49 AM CDT [facility] Clarity UA Slt Cloudy(A) Clear 06/25/2022 12:49 AM T [facility] Specific [place] UA 1.020 1.005 - 1.030 06/25/2022 12:49 AM [facility] pH UA 5.0 5.0 - 8.0 pH 06/25/2022 12:49 AM T [facility] Protein UA 1+(A) Negative 06/25/2022 12:49 AM [facility] Glucose UA Negative Negative 06/25/2022 12:49 AM T [facility] Ketone UA Negative Negative 06/25/2022 12:49 AM [facility] Bilirubin UA Negative Negative 06/25/2022 12:49 AM [facility] Blood UA 2+(A) Negative 06/25/2022 12:49 AM [facility] Nitrite UA Negative Negative 06/25/2022 12:49 AM [facility] Leukocyte Esterase 1+(A) Negative 06/25/2022 12:49 AM [facility] Urobilinogen UA Negative Negative mg/dL 06/25/2022 12:49 AM CDT [facility] RBC UA 3-5 None Seen, 0-2, 3-5 /HPF 06/25/2022 12:49 AM CDT [facility] WBC UA 11-20(A) None Seen, 0-5 /HPF 06/25/2022 12:49 AM CDT [facility] Bacteria UA Trace(A) None /HPF 06/25/2022 12:49 AM CDT [facility] Squamous Epithelial Cells UA 3-5 None Seen, 0-2, 3-5 /HPF 06/25/2022 12:49 AM CDT [facility] Mucus UA 1+ /LPF 06/25/2022 12:49 AM CDT [facility] Hyaline Casts UA 3-5(A) None Seen, 0-2 /LPF 06/25/2022 12:49 AM CDT [facility] Urine URINE SPECIMEN OBTAINED VIA [employer] / Unknown Collection / Unknown 06/25/2022 12:33 AM CDT 06/25/2022 12:36 AM CDT Narrative [facility] - 06/25/2022 12:49 AM CDT Esa Sevilla DO LAB - URINALYSIS ORD ERABLES [facility] [address] [place] [address], [place] [phone] * CULTURE URINE (06/25/2022 12:33 AM CDT) Culture Urine No growth (<100 CFU/mL) YOMI 06/26/2022 5:27 AM CDT [facility] Urine URINE SPECIMEN OBTAINED VIA [employer] [facility] / Unknown Collection / Unknown 06/25/2022 12:33 AM CDT 06/25/2022 12:36 AM CDT Esa Sevilla DO LAB - MICROBIOLOGY O RDERABLES [facility] [address] [place], [place] [id number] [place], [place] [id number] * (ABNORMAL) URINE DRUG SCREEN IMMUNOASSAY (06/25/2022 12:33 AM [facility]) [facility] Amphetamines Screen Urine Negative Negative : < 1000 ng/mL 06/25/2022 12:57 AM [facility] Barbiturates Screen Urine Negative Negative : < 200 ng/mL 06/25/2022 12:57 AM [facility] Benzodiazepine Screen Urine Positive(A) Negative : < 200 ng/mL 06/25/2022 12:57 AM [facility] Comment: Positive urine benzodiazepine screening results should be confirmed by another generally accepted non-immunological method such as gas chromatography or mass spectrometry. ? Opiates Urine Negative Negative : < 300 ng/mL 06/25/2022 12:57 AM [facility] Cocaine Metabolites Urine Negative Negative : < 300 ng/mL 06/25/2022 12:57 AM [facility] Phencyclidine Screen Urine Negative Negative : < 25 ng/ml 06/25/2022 12:57 AM [facility] Cannabinoids Screen Urine Negative Negative : <50 ng/mL 06/25/2022 12:57 AM [facility] Methadone Screen Urine Negative Negative : < 300 ng/mL 06/25/2022 12:57 AM [facility] Fentanyl Screen Urine Positive(A) Negative : <1.5 ng/mL 06/25/2022 12:57 AM [facility] Comment:Positive urine fenta nyl screening results should be confirmed by another generally accepted non-immunological method such as gas chromatography or mass spectrometry. Urine URINE / Unknown Collection / Unknown 06/25/2022 12:33 AM T 06/25/2022 12:36 AM [facility] - 06/25/2022 12:57 AM [facility] The Urine Toxicology Screening Panel does not screen for Propoxyphene, Meprobamate, Carisoprodol, Trazodone, vpxr-swa-nbmbcct medications and/or volatiles (Acetone, Isopropanol, Methanol or Ethylene Glycol). Ethanol, Salicylate, Acetaminophen, Tricyclic Antidepressants and several therapeutic drugs may be individually assayed in serum or plasma specimen. Toxicology testing by the [facility] is an aid to medical diagnosis and treatment of patients. No documented chain of custody was maintained. Results are intended to be used for clinical purposes only. ? Esa Sevilla DO LAB - URINE CHEMISTR Y ORDERABLES Performing Organization Address [facility] [address]/[facility] Co de Phone Number [facility] [address] [address], [place] [phone] * EKG 12-LEAD (06/25/2022 12:07 AM CDT) Ventricular Rate 50 BPM [facility] MUSE Atrial Rate 50 BPM [facility] MUSE P-R Interval 176 ms [facility] MUSE QRS Duration ms 116 ms [facility] MUSE Q-T Interval ms 524 ms [facility] MUSE QTC Calculation (Bezet) 477 ms [facility] MUSE Calculated P D Hanis 78 degrees [facility] MUSE Calculated R D Hanis 25 degrees SL MUSE Calculated T D Hanis 25 degrees [facility] MUSE Interpretation EKG SINUS BRADYCARDIA LOW VOLTAGE QRS PROLONGED QT ABNORMAL ECG NO PREVIOUS ECGS AVAILABLE Confirmed by COLUMBA ARMAS MD ([id number]) on 06/26/2022 5:35:53 AM [facility] MUSE 06/25/2022 12:0 7 AM CDT 06/26/2022 5:35 AM CDT Esa Sevilla DO ECG ORDERABLES [facility] * (ABNORMAL) TEG 6 GLOBAL HEMOSTASIS W/ LYSIS (06/25/2022 12:07 AM CDT) Citrated Kaolin R (Reaction Time) 1.8(L) 4.6 - 9.1 min 06/25/2022 1:07 AM CDT [facility] Citrated Kaolin LY30 (Lysis) 0.1 0.0 - 2.6 % 06/25/2022 1:07 AM CDT [facility] Citrated RapidTEG MA (Max Amplitude) 68.4 52.0 - 70.0 mm 06/25/2022 1:07 AM T [facility] Citrated Functional Fibrinogen MA (Max Amplitude) 40.1(H) 15.0 - 32.0 mm 06/25/2022 1:07 AM T [facility] Blood BLOOD SPECIMEN / Unknown Venipuncture / Unknown 06/25/2022 12:07 AM CDT 06/25/2022 12:14 AM CDT Esa Seivlla DO LAB - HEMATOLOGY ORD ERABLES [facility] [address] [place] [address], [facility] [phone] * (ABNORMAL) TEG 6S PLATELET MAPPING (06/25/2022 12:07 AM CDT) TEGPLM (Max Amplitude) Koalin 70(H) 53 - 68 mm 06/25/2022 1:19 AM CDT [facility] TEGPLM (Max Amplitude) ACTF 23(H) 2 - 19 mm 06/25/2022 1:19 AM CDT [facility] TEGPLM (Max Amplitude) ADP 62 45 - 69 mm 06/25/2022 1:19 AM CDT [facility] TEGPLM (Max Amplitude) AA 43(L) 51 - 71 mm 06/25/2022 1:19 AM CDT [facility] TEGPLM %Inhibition ADP 18(H) 0 - 17 % 06/25/2022 1:19 AM CDT [facility] TEGPLM %Inhibition AA 58(H) 0 - 11 % 06/25/2022 1:19 AM CDT [facility] TEGPLM %Aggregation ADP 83 83 - 100 % 06/25/2022 1:19 AM CDT [facility] TEGPLM % Aggregation AA 42(L) 89 - 100 % 06/25/2022 1:19 AM CDT [facility] Blood BLOOD SPECIMEN / Unknown Venipuncture / Unknown 06/25/2022 12:07 AM CDT 06/25/2022 12:14 AM CDT Esa Sevilla DO LAB - HEMATOLOGY ORD ERABLES Performing Organization Address [facility] [address]/ZIP Co de Phone Number [address] [address], [facility] [phone] * (ABNORMAL) PTT [facility] (06/25/2022 12:07 AM CDT) APTT 22.4(L) 23.0 - 38.4 Seconds 06/25/2022 1:17 AM [facility] Comment:Suggested therapeuti c range for full dose I.V. unfractionated heparin therapy for venous thromboembolism is 71 to 109 seconds. Blood BLOOD SPECIMEN / Unknown Venipuncture / Unknown 06/25/2022 12:07 AM CDT 06/25/2022 12:14 AM CDT Esa Sevilla DO LAB - COAGULATION OR DERABLES Performing Organization Address [facility] [address]/ZIP Co de Phone Number [address] [address], [place] [phone] * (ABNORMAL) PT-INR [facility] (06/25/2022 12:07 AM CDT) PT 15.9(H) 12.1 - 14.8 Seconds 06/25/2022 12:35 AM [facility] INR 1.3 See Comment 06/25/2022 12:35 AM T [facility] Comment:The suggested therap eutic range for standard coumadin (warfarin) therapy is an INR of 2.0-3.0. For high-risk patients (Mechanical Mitral Valve Prosthesis, etc.), the suggested prophylactic therapeutic range is an INR of 2.5-3.5. Blood BLOOD SPECIMEN / Unknown Venipuncture / Unknown 06/25/2022 12:07 AM CDT 06/25/2022 12:14 AM CDT Esa Sevilla DO LAB - COAGULATION OR DERABLES Performing Organization Address City/[facility] [address]/ZIP Co de Phone Number [facility] [address] [place] [address], [place] [phone] * TYPE + SCREEN PANEL (06/25/2022 12:07 AM CDT) Antibody Screen NEG 12:57 AM CDT [facility] ABO Rh A NEG 06/25/2022 12:57 AM CDT [facility] Blood Bank BLOOD SPECIMEN / Unknown Venipuncture / Unknown 06/25/2022 12:07 AM CDT 06/25/2022 12:15 AM CDT Esa Sevilla DO LAB - BLOOD BANK ORD ERABLES Performing Organization Address City/[facility] [address]/ZIP Co de Phone Number [facility] [address] [place] [address], [place] [phone] Care Teams Farm Rancher Relationship Specialty Start Date End Date Sabino Moore MD [address] [place] [id number] PCP - General 03/23/22
--- OUTSIDE RECORDS SUMMARY | 2024-12-03 14:53 | XMS_ITS | Clinical Summary ---
Author Organization [facility] [address] [facility] [address] [place] [address] Care Team Providers Care Firer Portable Boiler Name Role Phone Sabino Moore MD Primary Care Provider Allergies No known active allergies Medications atorvastatin (LIPITOR) 80 mg tablet Take 1 tablet (80 mg total) by mouth daily 11/14/2020 Active minoxidiL (LONITEN) 2.5 mg tablet Take 1 tablet (2.5 mg total) by mouth 2 (two) times a day 12/29/2020 Active citalopram (CeleXA) 20 mg tablet Take 1 tablet (20 mg total) by mouth daily 11/21/2020 Active aspirin 81 mg chewable tabletIndication s:coronary artery disease Take 1 tablet (81 mg total) by mouth daily 30 tablet 11 09/02/2021 Active furosemide (LASIX) 40 mg tablet Take 1 tablet (40 mg total) by mouth daily 08/20/2022 Active FeroSuL 325 mg (65 mg iron) tablet Take 1 tablet (325 mg total) by mouth 2 (two) times a day 08/20/2022 Active docusate sodium (COLACE) 100 mg capsule Take 1 capsule (100 mg total) by mouth daily 08/20/2022 Active calcium carbonate-vitami n D3 1500 mg (600 mg elemental) -200 units per tablet Take 1 tablet by mouth daily Active isosorbide mononitrate ER (IMDUR) 30 mg 24 hr tablet Take 1 tablet (30 mg total) by mouth daily 90 tablet 3 10/29/2022 Active metoprolol tartrate (LOPRESSOR) 50 mg immediate release tabletIndication s:Coronary artery disease involving port lions coronary artery of port lions heart without angina pectoris Take 1 tablet by mouth twice daily 180 tablet 2 12/29/2023 Active Active Problems Problem Noted Date Diagnosed Date Prosthetic aortic valve stenosis 08/23/2023 Frequent falls 08/28/2022 Anemia of chronic disease 08/28/2022 Morbid (severe) obesity due to excess calories 1 Angina pectoris, unspecified 08/28/2022 Coronary artery disease invo lving port lions coronary artery of port lions heart without angina pectoris 07/17/2022 S/P TAVR (transcatheter aortic valve replacement ) 09/07/2021 Pulmonary HTN 02/06/2021 CKD stage 3 due to type 2 diabetes mellitus 01/10 Hypertension associated with diabetes 02/06/2021 Mixed diabetic hyperlipidemi a associated with type 2 diabetes mellitus (CMS/HCC) 02/06/2021 H/O: CVA (cerebrovascular accident) 02/06/2021 Localized edema 02/06/2021 Resolved Problems Problem Noted Date Diagnosed Date Resolved Date Severe aortic stenosis 02/06/202102/12 Immunizations Name Administration Dates Next Due Influenza, Quadrivalent, Hig h Dose, Preservative Free, Intrr 09/01/2021 Surgical History Surgery Date Site/Laterality Comments GANGLION CYST EXCISION Left BRAIN SURGERY 11/11/2003 - 11/10/2004 intracranial bleed, release CARDIAC CATHETERIZATION Medical History Medical History Date Comments Aortic stenosis Intracranial bleed (HCC) 2003 Osteopenia Depression Diabetic nephropathy (CMS/HCC) (HCC) Murmur, cardiac Hypertension HLD (hyperlipidemia) Stroke ([facility]) 2003 Type 2 diabetes mellitus ([facility]) d iet controlled Pulmonary hypertension ([facility]) Edema bilateral lower extremities Family History Medical History Relation Name Comments Heart attack Father No Known Problems Mother Relation Name Status Comments Father (Age 88) Mother (Age 90) Social History Tobacco Use Types Packs/Day Years Used Date Smoking Tobacco: Former Cigarettes Q uit: 1981 Smokeless Tobacco: Never Tobacco Cessation:Counseling Given: Not Answered Social Connection and Isolation Panel [NHANES] A nswer Date Recorded In a typical week, how many times do you talk on the phone with family, friends, or neighbors? Three times a week 09/01/2021 How often do you get togethe r with friends or relatives? Never 09/01/2021 How often do you attend chur ch or anabaptist services? Never 09/01/2021 Do you belong to any clubs o r organizations such as hinduism groups, unions, fraternal or athletic groups, or school groups? No 09/01/2021 How often do you attend meet ings of the clubs or organizations you belong to? Never 09/01/2021 Are you , , di vorced, , never , or living with a partner? 09/01/2021 AUDIT-C Answer Date Recorded Frequency of Alcohol Consumption Not on file 08/31/2021 Average Number of Drinks Not on file 021 Q3: How often do you have si x or more drinks on one occasion? Never 08/31/2021 Overall Financial Resource Strain (CARDIA) Answe r Date Recorded How hard is it for you to pa y for the very basics like food, housing, medical care, and heating? Not hard at all 09/01/2021 Hunger Vital Sign Answer Date Recorded Within the past 12 months, y ou worried that your food would run out before you got the money to buy more. Never true 09/01/20 21 Within the past 12 months, t he food you bought just didn't last and you didn't have money to get more. Never true 09/01/2021 PRAPARE - Transportation Answer Date Re corded In the past 12 months, has l ack of transportation kept you from medical appointments or from getting medications? No 08/12 In the past 12 months, has l ack of transportation kept you from meetings, work, or from getting things needed for daily living? No 09/01/2021 Housing Stability Vital Sign Answer Dean e Recorded In the last 12 months, was t here a time when you were not able to pay the mortgage or rent on time? No 09/01/2021 Number of Places Lived in the Last Year Not on f ile 09/01/2021 In the last 12 months, was t here a time when you did not have a steady place to sleep or slept in a chcf (including now)? 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 Gender Identity Not on file Sexual Orientation Not on file Obstetrics History Last Filed Vital Signs Vital Sign Reading Time Taken Comments Blood Pressure 185/82 10/17/2023 11:53 AM ECOMMERCE PROJECT MANAGER Pulse 61 08/23/2023 10:05 AM CDT Temperature 36.3 ??C (97.4 ??F) 09/01/2021 11:07 AM C DT Respiratory Rate 18 09/01/2021 11:07 AM CDT Oxygen Saturation 97% 08/23/2023 10:05 AM CDT Inhaled Oxygen Concentration - - Weight 90.4 kg (199 lb 4.8 oz) 08/23/2023 10:05 AM CDT Height 154.9 cm (5' 1 ) 08/23/2023 10:05 AM CDT Body Mass Index 37.66 08/23/2023 10:05 AM CDT Plan of Treatment Health Maintenance Due Date Last Done Comments Albumin Creatinine Ratio, Urine 1951 Breast Cancer Screening-Mammogram 1951 Colon Cancer Screening-Colonoscopy 1951 Depression Screening 1951 Fall Risk Assessment 1951 Hemoglobin A1C 1951 Hepatitis C Screening 1951 Osteoporosis Screening-Bone Density Scan 1951 Dilated Eye Exam 1951 Foot Exam 1951 Hepatitis B Screening 1969 Pneumococcal vaccine 65+ (2 of 2 - PCV) 11/19/2012 11/19/2011 Zoster Vaccine (2 of 3) 01/26/2013 12/01/2012 Well Visit 65+ 2016 eGFR 09/01/2022 09/01/2021, 08/11, 07/03/2021 Lipid Panel 02/13/2024 02/12/2023, 03/0 01/2022, 02/06/2021 Influenza Vaccine (#1) 2024 , 09/11/2019, 09/09/2017, Additional history exists DTaP/Tdap/Td Vaccine (2 - Td or Tdap) 06/25/2032 06/25/2022 Medical Devices Implanted Type Area Workforce Development Program Director Device Identifier Shelf Expiration Date Model / Serial / Lot [employer] [id number] Perclose 6fr Suture Mediate Knot Push Vascular Device Closure - [id number] Implanted:Qty: 1 on 08/31/2021 by Shaggy Burgess MD at [facility] [employer] 05/10/2023 [id number] / / [id number] [employer] [id number] Perclose 6fr Suture Mediate Knot Push Vascular Device Closure - [id number] Implanted:Qty: 1 on 08/31/2021 by Shaggy Burgess MD at [facility] Vascular 05/10/2023 [id number] / / [id number] [employer] [id number] Valve Heart 23mm Torey 3 Transcatheter - [id number] - [id number] Implanted:Qty: 1 on 08/31/2021 by Shaggy Burgess MD at [facility] [employer] 01/18/2023 [id number] / [id number] / [employer] [id number] Perclose 6fr Suture Mediate Knot Push Vascular Device Closure - [id number] Implanted:Qty: 1 on 08/31/2021 by Shaggy Burgess MD at [facility] [employer] 05/10/2023 [id number] / / [id number] Procedures Procedure Name Priority Date/Time Associated Diagnosis Comments POCT LIPID PANEL Routine 02/12/2023 11:4 8 AM CDT Coronary artery disease involving port lions coronary artery of port lions heart without angina pectoris EGFR Routine 09/01/2021 4:31 AM CDT from Last 3 Months or Most Recently Relevant to Health Maintenance Results * POCT lipid panel (02/12/2023 11:48 AM CDT) Cholesterol, POC 162 mg/dL Comment:GLU = 109 HDL, POC 49 mg/dL Triglycerides, POC 186 mg/dL LDL Cholesterol POC 76 mg/dL Chol/HDL Ratio, POC 1.6 Non-HDL Cholesterol, POC 113 mg/dL Cholesterol Total, POC 162 mg/dL Capillary blood 02/12/2023 1 1:48 AM CDT Shaun Harp MD POINT OF CARE TEST ORDER FILOMENA Final Result * eGFR (09/01/2021 4:31 AM CDT) eGFR 28 mL/min/1.7 3 m2 [facility] Comment: Interpretive Data Reference Interval Normal ?>/= 90 mL/min/1.73m2 Mildly decreased* ? 60 - 89 mL/min/1.73m2 Mildly to moderately decreased ?45 - 59 mL/min/1.73m2 Moderately to severely decreased ??30 - 44 mL/min/1.73m2 Severely decreased ?15 - 29 mL/min/1.73m2 Kidney Failure ?< 15 ??mL/min/1.73m2 *Relative to young adult level Estimated glomerular filtration rate is determined by the CKD-EPI equation recommended by the National Kidney Foundation (KDIGO 2012 Clinical Practice Guideline for the Evaluation and Management of Chronic Kidney Disease. Kidney Intnl Suppl Nov 2012;3:1). The CKD-EPI equation should not be used for patients with unstable renal function and has not been validated in children and those over 70. Current interpretive data was last reviewed 2020 Blood 09/01/2021 4:31 AM CDT 09/01/2021 5:04 AM CDT us Shaggy Burgess MD LAB BLOOD ORDERABLES Final Resul t [facility] [id number] [place] [address] from Last 3 Months or Most Recently Relevant to Health Maintenance Insurance [facility] ADVANTRA [facility] Care Teams Firer Portable Boiler Relationship Specialty Start Date End Date Sabino Moore MD [address] [address] [facility] - General 03/10/14
--- OUTSIDE RECORDS SUMMARY | 2024-12-03 14:53 | XMS_ITS | Referral Summary ---
Author Organization [facility] [address] Address [address] [place] [address] Care Team Providers Care Wind Technician Name Role Phone Sabino Moore MD [...] immediate release tabletIndication s:Coronary artery disease involving holy cross coronary artery of holy cross heart without angina pectoris Take 1 tablet by mouth twice daily 180 tablet 2 12/29/2023 Active Active Problems Problem Noted Date Diagnosed Date Prosthetic aortic valve stenosis 08/23/2023 Frequent falls 08/28/2022 Anemia of chronic disease 08/28/2022 Morbid (severe) obesity due to excess calories 1 Angina pectoris, unspecified 08/28/2022 Coronary artery disease invo lving holy cross coronary artery of holy cross heart without angina pectoris 07/17/2022 S/P TAVR (transcatheter aortic valve replacement ) 09/07/2021 Pulmonary HTN 02/06/2021 CKD stage 3 due to type 2 diabetes mellitus 01/10 Hypertension associated with diabetes 02/06/2021 Mixed diabetic hyperlipidemi a associated with type 2 diabetes mellitus ([facility]/HCC) 02/06/2021 H/O: CVA (cerebrovascular accident) 02/06/2021 Localized edema 02/06/2021 Resolved Problems Problem Noted Date Diagnosed Date Resolved Date Severe aortic stenosis 02/06/202102/12 Immunizations Name Administration Dates Next Due Influenza, Quadrivalent, Hig h Dose, Preservative Free, Intrr 09/01/2021 Social History Tobacco Use Types Packs/Day Years Used Date Smoking Tobacco: Former Cigarettes Q uit: 1980 Smokeless Tobacco: Never Tobacco Cessation:Counseling Given: Not Answered Social Connection and Isolation Panel [NHANES] A nswer Date Recorded In a typical week, how many times do you talk on the phone with family, friends, or neighbors? Three times a week 09/01/2021 How often do you get togethe r with friends or relatives? Never 09/01/2021 How often do you attend chur or evangelical services? Never 09/01/2021 Do you belong to any clubs o r organizations such as yazidi groups, unions, fraternal or athletic groups, or [...] place to sleep or slept in a fci (including now)? 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 Gender Identity Not on file Sexual Orientation Not on file Last Filed Vital Signs Vital Sign Reading Time Taken Comments Blood Pressure 185/82 10/17/2023 11:53 AM SPORTS MEDICINE COORDINATOR Pulse 61 08/23/2023 10:05 AM CDT Temperature [...] 08/23/2023 10:05 AM CDT Plan of Treatment Not on file Medical Devices Implanted Type Area Transmission Superintendent Device Identifier Shelf Expiration Date Model / Serial / Lot [employer] [id number] Perclose 6fr Suture Mediate Knot Push Vascular Device Closure - [id number] Implanted:Qty: 1 on 08/31/2021 by Shaggy Burgess MD at [facility] [employer] 05/10/2023 [id number] / / [id number] [employer] [id number] Perclose 6fr Suture Mediate Knot Push Vascular Device Closure - [id number] Implanted:Qty: 1 on 08/31/2021 by Shaggy Burgess MD at [facility] Vascular 05/10/2023 [id number] / / [id number] [employer] [id number] Valve Heart 23mm Torey 3 Transcatheter - [id number] - [id number] Implanted:Qty: 1 on 08/31/2021 by Shaggy Burgess MD at [facility] [employer] 01/18/2023 [id number] / [id number] / [employer] [id number] Perclose 6fr Suture Mediate Knot Push Vascular Device Closure - [id number] Implanted:Qty: 1 on 08/31/2021 by Shaggy Burgess MD at [facility] Vascular 05/10/2023 [id number] / / [id number] Procedures Procedure Name Priority Date/Time Associated Diagnosis Comments POCT LIPID PANEL Routine 02/12/2023 11:4 8 AM CDT Coronary artery disease involving holy cross coronary artery of holy cross heart without angina pectoris EGFR Routine 09/01/2021 [...] Capillary blood 02/12/2023 1 1:48 AM CDT us Shaun Harp MD POINT OF CARE TEST ORDER FILOMENA Final Result * eGFR (09/01/2021 4:31 AM CDT) Pathologist [facility] eGFR 28 mL/min/1.7 3 m2 TER[facility] BROWNE [...] LAB BLOOD ORDERABLES Final Resul t [facility]I [address] Department [place] [address] from Last 3 Months or Most Recently Relevant to Health Maintenance Insurance [facility] [place] [id number] Care Teams Wind Technician Relationship Specialty Start Date End Date Sabino Moore MD [address] [facility] [address] [place] [address] PCP - General 03/10/14
== END 2024-11-30 19:27 | disposition home or self-care (01) ==
PROVIDERS: Emergency Provider Physician Assistant; PCP Family Medicine
DX: S01.81XA Laceration without foreign body of other part of head, initial encounter (principal); I35.0 Nonrheumatic aortic (valve) stenosis; I12.9 Hypertensive chronic kidney disease with stage 1 through stage 4 chronic kidney disease, or unspecified chronic kidney disease; E11.22 Type 2 diabetes mellitus with diabetic chronic kidney disease; N18.4 Chronic kidney disease, stage 4 (severe); E78.2 Mixed hyperlipidemia; Z95.2 Presence of prosthetic heart valve; Z86.73 Personal history of transient ischemic attack (TIA), and cerebral infarction without residual deficits; Z87.891 Personal history of nicotine dependence; Z79.82 Long term (current) use of aspirin; Z79.899 Other long term (current) drug therapy; W10.9XXA Fall (on) (from) unspecified stairs and steps, initial encounter
CPT/HCPCS: 12011; 70450; 99284

== ENCOUNTER 2024-12-09 13:05 | Outpatient (CLI) | payer MEDICARE, SELFPAY ==
[2024-12-09 13:34] LABS: Blood Urea Nitrogen 41 mg/dL (8-26); Carbon Dioxide 27 mmol/L (22-30); Chloride 105 mmol/L (98-109); Estimated Glomerular Filt Rate 18; Glucose 92 mg/dL (70-105); Ionized Calcium (POC) 1.05 mmol/L (1.11-1.31); Potassium 4.3 mmol/L (3.5-4.9); Sodium 141 mmol/L (138-146)
[2024-12-09 13:41] LABS: Basophils Percent Auto 0.6 % (0.2-1.2); Eosinophils Absolute Auto 0.3 K/mm3 (0-0.3); Hematocrit 28.4 % (37.0-47.0); Hemoglobin 8.9 g/dL (12.0-15.0); Immature Granulocyte Absolute 0.04 K/mm3 (0.00-0.031); Immature Granulocyte Percent A 0.6 % (0-0.5); Lymphocytes Absolute Auto 1.05 K/mm3 (0.9-3.2); Lymphocytes Percent Auto 16.9 % (18.3-44.2); Mean Corpuscular HGB Conc 31.3 g/dl (32-36); Mean Corpuscular Volume 92.5 fl (80-100); Mean Platelet Volume 9.8 fl (7.4-10.4); Monocytes Absolute Auto 0.5 K/mm3 (0.1-0.6); Neutrophils Absolute Auto 4.3 K/mm3 (1.3-6.7); Neutrophils Percent Auto 68.9 % (45.5-73.1); Platelet Count Result 157 k/mm3 (150-375); Red Blood Count 3.07 M/mm3 (4.2-5.4); Red Cell Distribution Width 14.9 % (11.5-14.5); White Blood Count 6.2 K/mm3 (4.5-10.0)
--- OUTSIDE RECORDS SUMMARY | 2024-12-09 14:08 | XMS_ITS | Patient Health Summary ---
Author Organization [facility] Address [address] [place] [address] Care Team Providers Care Rn Chemical Dependency Name Role Phone Sabino Moore MD Primary Care Provider [phone] Note from [facility],non-owned Affiliates and Associated Physician Practices is amultiple site organization consisting of ambulatory clinics and hospital sitesin [place], [place], [place] and [place]. This disclosure is being madepursuant to the Care Everywhere program and may not contain all information available regarding this patient. Last updated 18.[facility] Allergies No known active allergies Medications * [...] of43 resultswithin the time period is included. [facility] Glucose WB/POC 123(H) 70 - 115 mg/dL 07/03/2022 4:54 PM CDT [facility] Specimen Type Cap Fingerstick 2021 4:54 PM CDT [facility] Blood BLOOD SPECIMEN / Unknown 07/03/2022 4:49 PM CDT 07/03/2022 4:54 PM CDT Fallon Benson MD LAB - POINT OF CARE ORDERABLES [facility] [address] [place] [address], [facility] [phone] * (ABNORMAL) CBC W AUTO DIFFERENTIAL (07/03/2022 9:20 AM CDT) Only the most recent of8 resultswithin the time period is included. WBC 10.3 3.5 - 10.5 10? 3 /uL 07/03/2022 10:02 AM [facility] RBC 3.62(L) 3.80 - 5.20 10? 6 /uL 07/03/2022 10:02 AM [facility] Hemoglobin 10.3(L) 12.0 - 15.6 g/dL 07/03/2022 10:02 AM [facility] Hematocrit 32.7(L) 35.0 - 45.0 % 07/03/2022 10:02 AM [facility] MCV 90.3 80.7 - 98.3 fL 07/03/2022 10:02 AM [facility] MCH 28.5 26.7 - 34.0 pg 07/03/2022 10:02 AM [facility] MCHC 31.5 30.8 - 35.9 g/dL 07/03/2022 10:02 AM [facility] Platelet Count 261 150 - 400 10? 3 /uL 07/03/2022 10:02 AM [facility] RDW-SD 51.7(H) 36.0 - 50.0 fL 07/03/2022 10:02 AM [facility] RDW-CV 15.7(H) 11.2 - 14.8 % 07/03/2022 10:02 AM [facility] MPV 10.1 9.4 - 12.9 fL 07/03/2022 10:02 AM [facility] nRBC Absolute 0.00 0 10? 3 /uL 07/03/2022 10:02 AM [facility] nRBC Auto 0.0 0 /100 WBC 07/03/2022 10:02 AM [facility] Neutrophils % 76.0(H) 35.0 - 70.0 % 07/03/2022 10:02 AM [facility] Lymphocytes % 10.9(L) 20.0 - 43.0 % 07/03/2022 10:02 AM [facility] Monocytes % 8.1 5.0 - 13.0 % 07/03/2022 10:02 AM [facility] Eosinophils % 3.0 0.0 - 6.0 % 07/03/2022 10:02 AM [facility] Basophil % 0.4 0.0 - 2.0 % 07/03/2022 10:02 AM [facility] Neutrophils Absolute 7.85(H) 1.60 - 7.00 10? 3 /uL 07/03/2022 10:02 AM [facility] Lymphocyte Absolute 1.12 1.10 - 3.90 10? 3 /uL 07/03/2022 10:02 AM [facility] Monocytes Absolute 0.83 0.26 - 1.07 10? 3 /uL 07/03/2022 10:02 AM [facility] Eosinophils Absolute 0.31 0.00 - 0.47 10? 3 /uL 07/03/2022 10:02 AM [facility] Basophils Absolute 0.04 0.00 - 0.08 10? 3 /uL 07/03/2022 10:02 AM [facility] Immature Granulocytes % 1.6(H) 0.0 - 1.0 % 07/03/2022 10:02 AM [facility] Immature Granulocytes Absolute 0.16 07/03/2022 10:02 AM [facility] Blood BLOOD SPECIMEN / Unknown Lab Venipuncture / Unknown 07/03/2022 9:20 AM CDT 07/03/2022 9:55 AM CDT Cale Brandon MD LAB - HEMATOLOGY ORD ERABLES [facility] [address] [place] [address], [facility] [phone] * (ABNORMAL) RENAL FUNCTION PANEL (07/03/2022 5:58 AM CDT) Only the most recent of8 resultswithin the time period is included. BUN 28(H) 7 - 26 mg/dL 07/03/2022 7:38 AM [facility] Creatinine 1.49(H) 0.56 - 0.96 mg/dL 07/03/2022 7:38 AM [facility] Sodium 143 136 - 145 mmol/L 07/03/2022 7:38 AM [facility] Potassium 4.2 3.5 - 4.5 mmol/L 07/03/2022 7:38 AM [facility] Chloride 105 98 - 107 mmol/L 07/03/2022 7:38 AM [facility] CO2 22 22 - 29 mmol/L 07/03/2022 7:38 AM [facility] Glucose 69(L) 70 - 115 mg/dL 07/03/2022 7:38 AM [facility] Albumin 3.2(L) 3.4 - 5.0 g/dL 07/03/2022 7:38 AM [facility] Calcium 9.6 8.4 - 10.2 mg/dL 07/03/2022 7:38 AM [facility] Phosphorus 3.0 2.9 - 5.1 mg/dL 07/03/2022 7:38 AM [facility] Anion Gap 20(H) 8 - 18 07/03/2022 7:38 AM [facility] BUN/Creatinine Ratio 19 7 - 07/03/2022 7:38 AM [facility] Osmolality Calculated 300 270 - 300 mOsm/kg 07/03/2022 7:38 AM [facility] eGFR by CKD-EPI 38(L) >=90 mL/min/1.7 3 m2 07/03/2022 7:38 AM [facility] Blood BLOOD SPECIMEN / Unknown Lab Venipuncture / Unknown 07/03/2022 5:58 AM CDT 07/03/2022 7:07 AM T Cale Brandon MD LAB - CHEMISTRY ORDE [facility] Organization Address City/State/ZIP Co de Phone Number [facility] [address] [place] [address], [facility] [phone] * MAGNESIUM BLOOD (06/30/2022 3:33 AM CDT) Only the most recent of6 resultswithin the time period is included. Magnesium 2.3 1.6 - 2.6 mg/dL 06/30/2022 4:10 AM [facility] Blood BLOOD SPECIMEN / Unknown Venipuncture / Unknown 06/30/2022 3:33 AM CDT 06/30/2022 3:38 AM CDT Cale Brandon MD LAB - CHEMISTRY ORDE RABNATALIE [facility] [address] [place] [address], [facility] [phone] * PREPARE (CROSSMATCH) RBC UNIT(S), 1 Units (06/29/2022 1:17 AM CDT) Only the most recent of3 resultswithin the time period is included. Pathologist [facility] Unit Description N/A [facility] Blood Bank BLOOD SPECIMEN / Unknown 06/25/2022 12:15 AM CDT Cale Brandon MD LAB - BLOOD BANK ORD KIRT Performing Organization Address City/[facility]/ZIP Co de Phone Number [facility] [address] [place] [address], [facility] [phone] * (ABNORMAL) BASIC METABOLIC PANEL (CALCIUM TOTAL) (06/28/2022 2:35 PM CDT) Only the most recent of2 resultswithin the time period is included. BUN 48(H) 7 - 26 mg/dL 06/28/2022 3:09 PM CDT [facility] Creatinine 2.28(H) 0.56 - 0.96 mg/dL 06/28/2022 3:09 PM CDT [facility] Sodium 150(H) 136 - 145 mmol/L 06/28/2022 3:09 PM CDT [facility] Potassium 4.7(H) 3.5 - 4.5 mmol/L 06/28/2022 3:09 PM T [facility] Chloride 120(H) 98 - 107 mmol/L 06/28/2022 3:09 PM T [facility] CO2 18(L) 22 - 29 mmol/L 06/28/2022 3:09 PM T [facility] Glucose 125(H) 70 - 115 mg/dL 06/28/2022 3:09 PM CDT [facility] Calcium 9.0 8.4 - 10.2 mg/dL 06/28/2022 3:09 PM CDT [facility] Anion Gap 17 8 - 18 06/28/2022 3:09 PM CDT [facility] BUN/Creatinine Ratio 21 7 - 23 06/28/2022 3:09 PM CDT [facility] Osmolality Calculated 324(H) 270 - 300 mOsm/kg 06/28/2022 3:09 PM CDT [facility] eGFR by CKD-EPI 23(L) >=90 mL/min/1.7 3 m2 06/28/2022 3:09 PM CDT [facility] Blood BLOOD SPECIMEN / Unknown Venipuncture / Unknown 06/28/2022 2:35 PM CDT 06/28/2022 2:44 PM CDT Cale Brandon MD LAB - CHEMISTRY JAYDA RICKETTS [facility] Organization Address City/State/ZIP Co de Phone Number [address] [address], [facility] [phone] * XR ABDOMEN KUB PORTABLE (06/27/2022 6:16 PM CDT) Only the most recent of2 resultswithin the time period is included. Anatomical Region Laterality Modality Abdomen Radiographic Mira ging 06/28/2022 7:52 AM CDT Narrative 06/28/2022 5:44 PM CDT PROCEDURE: ??XR ABDOMEN KUB PORTABLE, DATE/TIME OF EXAM: ??06/27/2022 6:17 PM, LOCATION ??[facility] INDICATION: K92.2: Gastrointestinal hemorrhage, unspecified gastrointestinal hemorrhage type ADDITIONAL CLINICAL INFORMATION: Ordering Provider Reason For Exam: ??NG tube placement COMPARISON: Abdominal x-ray dated 06/26/2020 Enteric tube tip superimposes the stomach. Report dictated by Cali Guthrie DO (vice president business development). Abel Gilmore MD have personally reviewed and interpreted this examination/study. > Interpreting Provider: Abel Walsh MD on 06/28/2022 5:44 PM Procedure Note Rubi Walsh MD - 06/28/2022 PROCEDURE: XR ABDOMEN KUB PORTABLE, DATE/TIME OF EXAM: 06/27/2022 6:17PM, LOCATION [facility] INDICATION: K92.2: Gastrointestinal hemorrhage, unspecified gastrointestinalhemorrhage type ADDITIONAL CLINICAL INFORMATION: Ordering Provider Reason For Exam: NG tube placement COMPARISON: Abdominal x-ray dated 06/26/2020 Enteric tube tip superimposes the stomach. Report dictated by Cali Guthrie DO (vice president business development). Abel Gilmore MD have personally reviewed and interpreted this examination/study. > Interpreting Provider: Abel Walsh MD on 06/28/2022 5:44 PM Cale Brandon MD DIAGNOSTIC IMAGING O RDERABLES * HEMOGLOBIN A1C (06/27/2022 3:29 AM CDT) Hemoglobin A1c 5.4 <=5.6 % 06/27/2022 8:34 AM CDT [facility] Estimated Average Glucose 108 mg/dL 06/27/2022 8:34 AM CDT [facility] Comment: HbA1c Interpretation: Normal : < 5.7% Pre-diabetes: 5.7-6.4% Diabetes: Equal to or greater than 6.5% Test results diagnostic of diabetes should be repeated for confirmation. Treatment target values recommended by ADA and other clinical organizations should be used to evaluate metabolic control in patients. Reference: [place] Diabetes Association, Standards of Care in Diabetes [...] Brandon MD LAB - CHEMISTRY JAYDA RICKETTS [facility] Organization Address City/State/ZIP Co de Phone Number [facility] [address] [place] [address], [facility] [phone] * TRIGLYCERIDES BLOOD (06/27/2022 3:29 AM CDT) Triglycerides 114 <150 mg/dL 06/27/2022 4:13 AM T [facility] Comment: ATP III Classification of Triglycerides: ?<150 mg/dL: ??Normal ? 150 - 199 mg/dL: ??Borderline High ? 200 - 400 mg/dL: ??High ?>500 mg/dL: ??Very High Blood BLOOD SPECIMEN / Unknown Venipuncture / Unknown 06/27/2022 3:29 AM CDT 06/27/2022 3:39 AM CDT Esa Sevilla DO LAB - CHEMISTRY JAYDA RICKETTS [facility] [address] [place], [place] [id number], [facility] [phone] * (ABNORMAL) BLOOD GASES BROOK + COOX PANEL (06/26/2022 8:03 PM CDT) pH Venous 7.26(L) 7.32 - 7.42 pH 06/26/2022 8:08 PM [facility] pO2 Venous 66(H) 35 - 40 mmHg 06/26/2022 8:08 PM [facility] pCO2 Venous 44 40 - 50 mmHg 06/26/2022 8:08 PM [facility] HCO3 Venous 19.7(L) 20 - 30 mmol/L 06/26/2022 8:08 PM [facility] Base Excess Venous -7.0(L) -2.0 - 2.0 mmol/L 06/26/2022 8:08 PM [facility] Oxyhemoglobin Venous 92.6 % 06/11 8:08 PM [facility] Deoxyhemoglobin (HHB) Venous % 5.0 % 06/26/2022 8:08 PM [facility] Methemoglobin <0.8 0.0 - 2.0 % 06/26/2022 8:08 PM CDT [facility] Carboxyhemoglobin 2.0 0.0 - 2.0 % 2021 8:08 PM T [facility] O2 Content Venous 11.8 Interpret within clinical context mg/dL 06/26/2022 8:08 PM [facility] Hemoglobin by COOX 9.0(L) 12.0 - 15.6 g/dL 06/26/2022 8:08 PM T [facility] O2 Saturation Venous 95 >=70 % 06/11 8:08 PM T [facility] FI O2 Mixed Venous 36.0 % 2021 8:08 PM T [facility] Comment:4L Blood BLOOD SPECIMEN / Unknown Venipuncture / Unknown 06/26/2022 8:03 PM CDT 06/26/2022 8:06 PM CDT Narrative [facility] - 06/26/2022 8:08 PM CDT Carboxyhemoglobin Normal Concentration: Non-smokers: 0-2%; Smokers: 0-9%; Toxic: >20% Cale Brandon MD LAB - BLOOD GASES OR DERABLES [address] [address], [facility] [phone] * (ABNORMAL) HEMOGLOBIN (06/26/2022 12:46 PM CDT) Hemoglobin 8.5(L) 12.0 - 15.6 g/dL 06/26/2022 1:02 PM CDT [facility] Blood BLOOD SPECIMEN / Unknown Venipuncture / Unknown 06/26/2022 12:46 PM CDT 06/26/2022 12:52 PM CDT Cale Brandon MD LAB - HEMATOLOGY ORD ERABLES [address] [address], [place] [phone] * TRANSFUSE RED BLOOD CELL LEUKOREDUCED UNIT(S) [...] 10.5 10? 3 /uL 06/26/2022 4:57 AM [facility] RBC 2.13(L) 3.80 - 5.20 10? 6 /uL 06/26/2022 4:57 AM [facility] Hemoglobin 6.1(L) 12.0 - 15.6 g/dL 06/26/2022 4:57 AM [facility] Hematocrit 19.4(L) 35.0 - 45.0 % 06/26/2022 4:57 AM [facility] MCV 91.1 80.7 - 98.3 fL 06/26/2022 4:57 AM [facility] MCH 28.6 26.7 - 34.0 pg 06/26/2022 4:57 AM [facility] MCHC 31.4 30.8 - 35.9 g/dL 06/26/2022 4:57 AM [facility] Platelet Count 100(L) 150 - 400 10? 3 /uL 06/26/2022 4:57 AM [facility] RDW-SD 52.8(H) 36.0 - 50.0 fL 06/26/2022 4:57 AM [facility] RDW-CV 15.9(H) 11.2 - 14.8 % 06/26/2022 4:57 AM [facility] MPV 10.9 9.4 - 12.9 fL 06/26/2022 4:57 AM [facility] nRBC Absolute 0.00 0 10? 3 /uL 06/26/2022 4:57 AM [facility] nRBC Auto 0.0 0 /100 WBC 06/26/2022 4:57 AM [facility] Blood BLOOD SPECIMEN / Unknown Venipuncture / Unknown 06/26/2022 4:18 AM CDT 06/26/2022 4:29 AM CDT Srinivasa Masters MD LAB - HEMATOLO GY ORDERABLES [facility] [address] [place] [address], [facility] [phone] * (ABNORMAL) COMPREHENSIVE METABOLIC PANEL (06/26/2022 4:18 AM CDT) Only the most recent of2 resultswithin the time period is included. BUN 63(H) 7 - 26 mg/dL 06/26/2022 5:00 AM [facility] Creatinine 3.60(H) 0.56 - 0.96 mg/dL 06/26/2022 5:00 AM [facility] Sodium 143 136 - 145 mmol/L 06/26/2022 5:00 AM [facility] Potassium 4.2 3.5 - 4.5 mmol/L 06/26/2022 5:00 AM [facility] Chloride 117(H) 98 - 107 mmol/L 06/26/2022 5:00 AM [facility] CO2 17(L) 22 - 29 mmol/L 06/26/2022 5:00 AM [facility] Glucose 159(H) 70 - 115 mg/dL 06/26/2022 5:00 AM [facility] Calcium 8.3(L) 8.4 - 10.2 mg/dL 06/26/2022 5:00 AM [facility] Protein Total 5.2(L) 6.0 - 8.3 g/dL 06/26/2022 5:00 AM [facility] Albumin 2.9(L) 3.4 - 5.0 g/dL 06/26/2022 5:00 AM [facility] Bilirubin Total 1.1 0.2 - 1.2 mg/dL 06/26/2022 5:00 AM [facility] Alkaline Phosphatase 22(L) 40 - 150 U/L 06/26/2022 5:00 AM [facility] ALT 27 5 - 55 U/L 06/26/2022 5:00 AM [facility] AST 34 5 - 34 U/L 06/26/2022 5:00 AM [facility] Anion Gap 13 8 - 18 06/26/2022 5:00 AM [facility] BUN/Creatinine Ratio 18 7 - 23 06/26/2022 5:00 AM [facility] Osmolality Calculated 317(H) 270 - 300 mOsm/kg 06/26/2022 5:00 AM [facility] Albumin/Globulin Ratio 1.3 1.1 - 2.3 06/26/2022 5:00 AM [facility] eGFR by CKD-EPI 13(L) >=90 mL/min/1.7 3 m2 06/26/2022 5:00 AM [facility] Blood BLOOD SPECIMEN / Unknown Venipuncture / Unknown 06/26/2022 4:18 AM CDT 06/26/2022 4:29 AM CDT Srinivasa Masters MD LAB - CHEMISTR Y ORDERABLES Performing Organization Address [facility] Co de Phone Number [address] [address], [facility] [phone] * (ABNORMAL) PHOSPHORUS BLOOD (06/26/2022 4:18 AM CDT) Phosphorus 2.6(L) 2.9 - 5.1 mg/dL 06/26/2022 5:00 AM [facility] Blood BLOOD SPECIMEN / Unknown Venipuncture / Unknown 06/26/2022 4:18 AM CDT 06/26/2022 4:29 AM CDT Srinivasa Masters MD LAB - CHEMISTR Y ORDERABLES Performing Organization Address City/[facility]/ZIP Co de Phone Number [address] [address], [place] [phone] * (ABNORMAL) TROPONIN I (06/25/2022 11:26 AM CDT) Only the most recent of4 resultswithin the time period is included. Troponin I 0.066(H) <0.032 ng/mL 06/25/2022 12:09 PM CDT [facility] Blood BLOOD SPECIMEN / Unknown Venipuncture / Unknown 06/25/2022 11:26 AM CDT 06/25/2022 11:37 AM CDT Srinivasa Masters MD LAB - CHEMISTR Y ORDERABLES Performing Organization Address City/[facility] Co de Phone Number [address] [address], [facility] [phone] * (ABNORMAL) CORTISOL BLOOD PM (06/25/2022 11:26 AM CDT) Cortisol PM 29.7(H) 2.9 - 17.3 ug/dL 06/25/2022 12:25 PM CDT [facility] Blood BLOOD SPECIMEN / Unknown Venipuncture / Unknown 06/25/2022 11:26 AM CDT 06/25/2022 11:37 AM CDT Narrative [facility] - 06/25/2022 12:25 PM CDT Normal cortisol levels are generally highest in the morning hours and lowest from late evening through the emergency room technician hours (8 PM to 4 AM). ??The PM measurements of cortisol run approximately one-half to one-third of the AM values. Cale Brandon MD LAB - CHEMISTRY JAYDA RICKETTS [address] [address], [place] [phone] * (ABNORMAL) BLOOD GASES ART + COOX PANEL (06/25/2022 9:42 AM CDT) Only the most recent of4 resultswithin the time period is included. pH Arterial 7.29(L) 7.35 - 7.45 pH 06/25/2022 9:50 AM [facility] pO2 Arterial 97 80 - 100 mmHg 06/25/2022 9:50 AM [facility] pCO2 Arterial 36 35 - 45 mmHg 9:50 AM [facility] HCO3 Arterial 17(L) 20 - 30 mmol/l 06/25/2022 9:50 AM [facility] BE Arterial -8.5(L) -2.0 - 2.0 mmol/L 06/25/2022 9:50 AM [facility] Oxyhemoglobin Arterial 96.1 % 06/25/2022 9:50 AM [facility] Dexoyhemoglobin (HHB) % 1.3 % 06/25/2022 9:50 AM [facility] Methemoglobin 0.8 0.0 - 2.0 % 06/25/2022 9:50 AM [facility] Carboxyhemoglobin 1.8 0.0 - 2.0 % 2021 9:50 AM [facility] O2 Content Arterial 10.6 Interpret within clinical context mg/dL 06/25/2022 9:50 AM [facility] Hemoglobin by COOX 7.7(L) 12.0 - 15.6 g/dL 06/25/2022 9:50 AM [facility] O2 Saturation Arterial 99 90 - 100 % 06/25/2022 9:50 AM [facility] FI O2 Arterial 30.0 % 06/25/2022 9:50 AM [facility] Blood, arterial ARTERIAL BLOOD SPECIMEN / Unknown Arterial Puncture / Unknown 06/25/2022 9:42 AM T 06/25/2022 9:46 AM [facility] - 06/25/2022 9:[address] [facility] Carboxyhemoglobin Normal Concentration: Non-smokers: 0-2%; Smokers: 0-9%; Toxic: >20% Cale Brandon MD LAB - BLOOD GASES OR DERABLES [facility] [address] [place] [address], [facility] [phone] * XR CHEST 1VW PORTABLE (06/25/2022 9:23 AM CDT) Only the most recent of2 resultswithin the time period is included. Anatomical Region Laterality Modality Chest Radiographic Mira ging 06/25/2022 1:11 PM CDT Narrative 06/25/2022 11:55 PM CDT PROCEDURE: ??XR CHEST 1VW PORTABLE, DATE/TIME OF EXAM: ??06/25/2022 9:26 AM, LOCATION ??[facility] INDICATION: R41.82: Altered mental status, unspecified altered [...] dictated by Massiel De Los Santos MD (vice president business development). I, Lul Larson MD have personally reviewed and interpreted this examination/study. > Interpreting Provider: Lul Larson MD on 06/25/2022 11:55 PM Procedure Note Lul Larson MD - 06/25/2022 PROCEDURE: XR CHEST 1VW PORTABLE, DATE/TIME OF EXAM: 06/25/2022 9:26AM, LOCATION [facility] INDICATION: R41.82: Altered mental status, unspecified altered [...] dictated by Massiel De Los Santos MD (vice president business development). I, Lul Larson MD have personally reviewed and interpreted this examination/study. > Interpreting Provider: Lul Larson MD on 06/25/2022 11:55 PM Cale Brandon MD DIAGNOSTIC IMAGING O RDERABLES * DRUG SCREEN EXPANDED TOXICOLOGY URINE PANEL (06/25/2022 5:00 AM CDT) [facility] Drug Screen Expanded SEE SCANNED REPORT 06/25/2022 3:52 PM CDT [facility] REF [facility] NON INTERF Urine URINE / Unknown Collection / Unknown 06/25/2022 5:00 AM CDT 06/25/2022 5:10 AM CDT Srinivasa Masters MD LAB - URINE CH EMISTRY ORDERABLES [facility] REF LAB NON INTERF [address] [place] [address], [facility] [phone] * (ABNORMAL) HEPATIC FUNCTION PANEL (06/25/2022 4:59 AM CDT) Pathologist [facility] Protein Total 5.1(L) 6.0 - 8.3 g/dL 022 5:44 AM CDT [facility] Albumin 2.8(L) 3.4 - 5.0 g/dL 06/25/2022 5:44 AM CDT [facility] Bilirubin Total 1.8(H) 0.2 - 1.2 mg/dL 06/11 5:44 AM CDT [facility] Bilirubin Conjugated 1.0(H) 0.1 - 0.5 mg/dL 06/25/2022 5:44 AM [facility] Bilirubin Unconjugated 0.8 Unconjugated Bilirubin is a calculated value: Reference ranges have not been established. mg/dL 06/25/2022 5:44 AM [facility] Alkaline Phosphatase 25(L) 40 - 150 U/L 06/25/2022 5:44 AM [facility] ALT 29 5 - 55 U/L 06/25/2022 5:[address] [facility] AST 36(H) 5 - 34 U/L 06/25/2022 5:44 AM [facility] Albumin/Globulin Ratio 1.2 1.1 - 2.3 06/25/2022 5:44 AM [facility] Blood BLOOD SPECIMEN / Unknown Venipuncture / Unknown 06/25/2022 4:59 AM CDT 06/25/2022 5:09 AM CDT Terrence Anderson MD LAB - CHEMISTRY [place] [address] [address], [facility] [phone] * TSH REFLEX FREE T4 (06/25/2022 3:37 AM CDT) TSH 1.088 0.350 - 4.940 uIU/mL 06/25/2022 5:23 AM T [facility] Blood BLOOD SPECIMEN / Unknown Venipuncture / Unknown 06/25/2022 3:37 AM CDT 06/25/2022 3:44 AM CDT Srinivasa Masters MD LAB - CHEMISTR Y ORDERABLES [address] [address], [place] [phone] * VITAMIN B12 (06/25/2022 3:37 AM CDT) Vitamin B12 601 213 - 816 pg/mL 06/25/2022 5:23 AM CDT [facility] Blood BLOOD SPECIMEN / Unknown Venipuncture / Unknown 06/25/2022 3:37 AM CDT 06/25/2022 3:44 AM CDT Srinivasa Masters MD LAB - CHEMISTR Y ORDERABLES Performing Organization Address City/[facility]/ZIP Co de Phone Number [address] [address], [place] [phone] * SODIUM URINE RANDOM (06/25/2022 3:23 AM CDT) Sodium Urine 26 Not Established mmol/L 06/25/2022 3:45 AM CDT [facility] Urine URINE SPECIMEN OBTAINED BY CLEAN CATCH PROCEDURE / Unknown Collection / Unknown 06/25/2022 3:23 AM CDT 06/25/2022 3:28 AM CDT Terrence Anderson MD LAB - URINE CHEMISTR Y ORDERABLES Performing Organization Address City/[facility]/ZIP Co de Phone Number [address] [address], [place] [phone] * CREATININE URINE RANDOM (06/25/2022 3:23 AM CDT) Creatinine Urine 78 Not Established mg/dL 06/25/2022 3:45 AM CDT [facility] Urine URINE SPECIMEN OBTAINED BY CLEAN CATCH PROCEDURE / Unknown Collection / Unknown 06/25/2022 3:23 AM CDT 06/25/2022 3:28 AM CDT Terrence Anderson MD LAB - URINE CHEMISTR Y ORDERABLES [address] [address], [place] [phone] * TRANSFUSE PLATELET PHERESIS UNIT(S) (06/25/2022 2:11 AM CDT) Terrence Anderson MD NURSING - BLOOD PROD TRANSFUSION * TRANSFUSE RED BLOOD CELL LEUKOREDUCED UNIT(S) (06/25/2022 1:54 AM CDT) Esa Sevilla DO NURSING - BLOOD PROD TRANSFUSION * PREPARE PLATELET PHERESIS UNIT(S), 1 Units (06/25/2022 1:38 AM CDT) Unit Description LR PLT Phere B7 [facility] Unit ABO O [facility] Unit Rh POS [facility] Product Number P27 [facility] B LOOD BANK LAB Unit Donor # [id number] [facility] Unit Status transfused [facility] BLO OD [facility]ANK LAB Product Code [id number] [facility] Blood Type Barcode 5100 [facility] Expiration Date S BLOOD BANK LAB Blood Bank BLOOD SPECIMEN / Unknown 06/25/2022 12:15 AM CDT Terrence Anderson MD LAB - BLOOD BANK ORD ERABLES [facility] [address] [place] [address], [facility] [phone] * CT LUMBAR SPINE WO CONTRAST - [...] verification. > Dictated by Italo Samaniego MD (vice president business development). I, Jordana Kim MD have personally reviewed and interpreted this examination/study. > Interpreting Provider: Jordana Kim MD on 06/25/2022 4:08 PM Narrative 06/25/2022 4:08 PM CDT PROCEDURE: ??CT HEAD WO CONTRAST, CT CERVICAL SPINE WO CONTRAST, CT THORACIC SPINE WO CONTRAST, CT LUMBAR SPINE WO CONTRAST, DATE/TIME OF EXAM: 06/25/2022 1:13 AM, LOCATION ??[facility] INDICATION: R41.82: Altered mental status, unspecified altered [...] DATE/TIME OF EXAM: 06/25/2022 1:13 AM, LOCATION [facility] INDICATION: R41.82: Altered mental status, unspecified altered [...] verification. > Dictated by Italo Samaniego MD (vice president business development). I, Jordana Kim MD have personally reviewed [...] verification. > Dictated by Italo Samaniego MD (vice president business development). I, Jordana Kim MD have personally reviewed and interpreted this examination/study. > Interpreting Provider: Jordana Kim MD on 06/25/2022 4:08 PM Narrative 06/25/2022 4:08 PM CDT PROCEDURE: ??CT HEAD WO CONTRAST, CT CERVICAL SPINE WO CONTRAST, CT THORACIC SPINE WO CONTRAST, CT LUMBAR SPINE WO CONTRAST, DATE/TIME OF EXAM: 06/25/2022 1:13 AM, LOCATION ??[facility] INDICATION: R41.82: Altered mental status, unspecified altered [...] DATE/TIME OF EXAM: 06/25/2022 1:13 AM, LOCATION [facility] INDICATION: R41.82: Altered mental status, unspecified altered [...] verification. > Dictated by Italo Samaniego MD (vice president business development). I, Jordana Kim MD have personally reviewed [...] verification. > Dictated by Italo Samaniego MD (vice president business development). I, Jordana Kim MD have personally reviewed and interpreted this examination/study. > Interpreting Provider: Jordana Kim MD on 06/25/2022 4:08 PM Narrative 06/25/2022 4:08 PM CDT PROCEDURE: ??CT HEAD WO CONTRAST, CT CERVICAL SPINE WO CONTRAST, CT THORACIC SPINE WO CONTRAST, CT LUMBAR SPINE WO CONTRAST, DATE/TIME OF EXAM: 06/25/2022 1:13 AM, LOCATION ??[facility] INDICATION: R41.82: Altered mental status, unspecified altered [...] DATE/TIME OF EXAM: 06/25/2022 1:13 AM, LOCATION [facility] INDICATION: R41.82: Altered mental status, unspecified altered [...] verification. > Dictated by Italo Samaniego MD (vice president business development). I, Jordana Kim MD have personally reviewed [...] verification. > Dictated by Italo Samaniego MD (vice president business development). I, Jordana Kim MD have personally reviewed and interpreted this examination/study. > Interpreting Provider: Jordana Kim MD on 06/25/2022 4:08 PM Narrative 06/25/2022 4:08 PM CDT PROCEDURE: ??CT HEAD WO CONTRAST, CT CERVICAL SPINE WO CONTRAST, CT THORACIC SPINE WO CONTRAST, CT LUMBAR SPINE WO CONTRAST, DATE/TIME OF EXAM: 06/25/2022 1:13 AM, LOCATION ??[facility] INDICATION: R41.82: Altered mental status, unspecified altered [...] DATE/TIME OF EXAM: 06/25/2022 1:13 AM, LOCATION [facility] INDICATION: R41.82: Altered mental status, unspecified altered [...] verification. > Dictated by Italo Samaniego MD (vice president business development). I, Jordana Kim MD have personally reviewed and interpreted this examination/study. > Interpreting Provider: Jordana Kim MD on 06/25/2022 4:08 PM Esa Sevilla DO CT ORDERABLES * LACTIC ACID BLOOD REFLEX TO REPEAT (06/25/2022 12:46 AM CDT) Lactic Acid-Stat 0.6 <=2.0 mmol/L 06/25/2022 1:16 AM CDT [facility] Blood BLOOD SPECIMEN / Unknown Venipuncture / Unknown 06/25/2022 12:46 AM CDT 06/25/2022 12:55 AM CDT Esa Sevilla DO LAB - CHEMISTRY JAYDA RICKETTS [facility] Organization Address City/[facility] Co de Phone Number [facility] [address] [place] [address], [facility] [phone] * PROCALCITONIN LEVEL (06/25/2022 12:46 AM CDT) PROCALCITONIN 0.10 <=0.10 ng/mL 06/25/2022 1:45 AM CDT [facility] Blood BLOOD SPECIMEN / Unknown Venipuncture / Unknown 06/25/2022 12:46 AM CDT 06/25/2022 12:50 AM CDT Narrative [facility] - 06/25/2022 1:45 AM CDT The [...] Change in Procalcitonin Calculator is available at [email or web address] ?? If clinical picture has not improved and PCT remains high, reevaluate and consider treatment failure or other causes. Esa Sevilla DO LAB - CHEMISTRY JAYDA RICKETTS Performing Organization Address [facility] Co de Phone Number [place] [id number] [place] [address], [place] [phone] * CULTURE BLOOD (06/25/2022 12:46 AM CDT) Only the most recent of2 resultswithin the time period is included. [facility] Culture No growth day 5 YOMI 06/30/2022 4:31 AM CDT [facility] Blood PERIPHERAL BLOOD / Unknown Venipuncture / Unknown 06/25/2022 12:46 AM CDT 06/25/2022 12:50 AM CDT Esa Sevilla DO LAB - MICROBIOLOGY O RDERAANNETTE Performing Organization Address City/[facility] Co de Phone Number [facility] [address] [place] [address], [facility] [phone] * (ABNORMAL) CK BLOOD (06/25/2022 12:46 AM CDT) Only the most recent of2 resultswithin the time period is included. CK Total 477(H) 30 - 200 U/L 06/25/2022 1:20 AM CDT [facility] Blood BLOOD SPECIMEN / Unknown Venipuncture / Unknown 06/25/2022 12:46 AM CDT 06/25/2022 12:56 AM CDT Esa Sevilla LAB - CHEMISTRY JAYDA RICKETTS [facility] [address] [place] [address], [facility] [phone] * XR PELVIS 1 OR 2VW (06/25/2022 12:37 AM CDT) Anatomical Region Laterality Modality Pelvis Radiographic Mira ging 06/25/2022 12:1 2 AM CDT Impressions 06/25/2022 11:19 AM CDT IMPRESSION: No acute osseous abnormality. Report drafted by Italo Samaniego MD (vice president business development) Ria Gilmore MD have personally reviewed and [...] abnormality. Report drafted by Italo Samaniego MD (vice president business development) Ria Gilmore MD have personally reviewed and interpreted this examination/study. > Interpreting Provider: Ria Galarza MD on 06/25/2022 11:19 AM Esa Sevilla DO DIAGNOSTIC IMAGING O RDERABLES * BLOOD TYPE VERIFICATION (06/25/2022 12:37 AM CDT) ABO Rh A NEG 06/25/2022 1:1 2 AM CDT [facility] Blood Bank BLOOD SPECIMEN / Unknown Lab Venipuncture / Unknown 06/25/2022 12:37 AM CDT 06/25/2022 12:45 AM CDT Karina You MD LAB - BLOOD BANK ORD ERABLES [facility] [address] [place] [address], [facility] [phone] * (ABNORMAL) URINALYSIS REFLEX TO MICROSCOPIC NO CULTURE (06/25/2022 12:33 AM CDT) Color UA Yellow Straw, Yellow 06/25/2022 12:49 AM CDT [facility] Clarity UA Slt Cloudy(A) Clear 06/25/2022 12:49 AM T [facility] Specific [place] UA 1.020 1.005 - 1.030 06/25/2022 12:49 AM [facility] pH UA 5.0 5.0 - 8.0 pH 06/25/2022 12:49 AM T [facility] Protein UA 1+(A) Negative 06/25/2022 12:49 AM [facility] Glucose UA Negative Negative 06/25/2022 12:49 AM T [facility] Ketone UA Negative Negative 06/25/2022 12:49 AM [facility] Bilirubin UA Negative Negative 06/25/2022 12:49 AM [facility] Blood UA 2+(A) Negative 06/25/2022 12:49 AM [facility] Nitrite UA Negative Negative 06/25/2022 12:49 AM [facility] Leukocyte Esterase 1+(A) Negative 06/25/2022 12:49 AM [facility] Urobilinogen UA Negative Negative mg/dL 06/25/2022 12:49 AM CDT [facility] RBC UA 3-5 None Seen, 0-2, 3-5 /HPF 06/25/2022 12:49 AM CDT [facility] WBC UA 11-20(A) None Seen, 0-5 /HPF 06/25/2022 12:49 AM CDT [facility] Bacteria UA Trace(A) None /HPF 06/25/2022 12:49 AM CDT [facility] Squamous Epithelial Cells UA 3-5 None Seen, 0-2, 3-5 /HPF 06/25/2022 12:49 AM CDT [facility] Mucus UA 1+ /LPF 06/25/2022 12:49 AM CDT [facility] Hyaline Casts UA 3-5(A) None Seen, 0-2 /LPF 06/25/2022 12:49 AM CDT [facility] Urine URINE SPECIMEN OBTAINED VIA INDWELLING URINARY CATHETER / Unknown Collection / Unknown 06/25/2022 12:33 AM CDT 06/25/2022 12:36 AM CDT Narrative [facility] - 06/25/2022 12:49 AM CDT Esa Sevilla DO LAB - URINALYSIS ORD ERABLES [facility] [address] [place] [address], [place] [phone] * CULTURE URINE (06/25/2022 12:33 AM CDT) Culture Urine No growth (<100 CFU/mL) YOMI 06/26/2022 5:27 AM CDT [facility] Urine URINE SPECIMEN OBTAINED VIA INDWELLING URINARY CATHETER / Unknown Collection / Unknown 06/25/2022 12:33 AM CDT 06/25/2022 12:36 AM CDT Esa Sevilla DO LAB - MICROBIOLOGY O RDERABLES [facility] [address] [place], [place] [id number] [place] [address] * (ABNORMAL) URINE DRUG SCREEN IMMUNOASSAY (06/25/2022 12:[address] [facility]) [facility] Amphetamines Screen Urine Negative Negative : < 1000 ng/mL 06/25/2022 12:57 AM [facility] Barbiturates Screen Urine Negative Negative : < 200 ng/mL 06/25/2022 12:57 AM [facility] Benzodiazepine Screen Urine Positive(A) Negative : < 200 ng/mL 06/25/2022 12:57 AM [facility] Comment: Positive urine benzodiazepine screening results should be confirmed by another generally accepted non-immunological method such as gas chromatography or mass spectrometry. ? Opiates Urine Negative Negative : < 300 ng/mL 06/25/2022 12:57 AM [facility] Cocaine Metabolites Urine Negative Negative : < 300 ng/mL 06/25/2022 12:57 AM [facility] Phencyclidine Screen Urine Negative Negative : < 25 ng/ml 06/25/2022 12:57 AM [facility] Cannabinoids Screen Urine Negative Negative : <50 ng/mL 06/25/2022 12:57 AM [facility] Methadone Screen Urine Negative Negative : < 300 ng/mL 06/25/2022 12:57 AM [facility] Fentanyl Screen Urine Positive(A) Negative : <1.5 ng/mL 06/25/2022 12:57 AM [facility] Comment:Positive urine fenta nyl screening results should be confirmed by another generally accepted non-immunological method such as gas chromatography or mass spectrometry. Urine URINE / Unknown Collection / Unknown 06/25/2022 12:33 AM T 06/25/2022 12:36 AM [facility] - 06/25/2022 12:[address] [facility] The Urine Toxicology Screening Panel does not screen for Propoxyphene, Meprobamate, Carisoprodol, Trazodone, sfff-nhe-gstpfuk medications and/or volatiles (Acetone, Isopropanol, Methanol or Ethylene Glycol). Ethanol, Salicylate, Acetaminophen, Tricyclic Antidepressants and several therapeutic drugs may be individually assayed in serum or plasma specimen. Toxicology testing by the [facility] is an aid to medical diagnosis and treatment of patients. No documented chain of custody was maintained. Results are intended to be used for clinical purposes only. ? Esa Sevilla DO LAB - URINE CHEMISTR Y ORDERABLES Performing Organization Address [facility] Co de Phone Number [facility] [address] [address], [place] [phone] * EKG 12-LEAD (06/25/2022 12:07 AM CDT) Ventricular Rate 50 BPM [facility] MUSE Atrial Rate 50 BPM [facility] MUSE P-R Interval 176 ms [facility] MUSE QRS Duration ms 116 ms [facility] MUSE Q-T Interval ms 524 ms [facility] MUSE QTC Calculation (Bezet) 477 ms [facility] MUSE Calculated P [place] 78 degrees [facility] MUSE Calculated R [place] 25 degrees SL MUSE Calculated T [place] 25 degrees [facility] MUSE Interpretation EKG SINUS BRADYCARDIA LOW VOLTAGE QRS PROLONGED QT ABNORMAL ECG NO PREVIOUS ECGS AVAILABLE Confirmed by COLUMBA ARMAS MD ([id number]) on 06/26/2022 5:35:53 AM [facility] MUSE 06/25/2022 12:0 7 AM CDT 06/26/2022 5:35 AM CDT Esa Sevilla DO ECG ORDERABLES [facility] MUSE * (ABNORMAL) TEG 6 GLOBAL HEMOSTASIS W/ LYSIS (06/25/2022 12:07 AM CDT) Citrated Kaolin R (Reaction Time) 1.8(L) 4.6 - 9.1 min 06/25/2022 1:07 AM CDT [facility] Citrated Kaolin LY30 (Lysis) 0.1 0.0 - 2.6 % 06/25/2022 1:07 AM CDT [facility] Citrated RapidTEG MA (Max Amplitude) 68.4 52.0 - 70.0 mm 06/25/2022 1:07 AM T [facility] Citrated Functional Fibrinogen MA (Max Amplitude) 40.1(H) 15.0 - 32.0 mm 06/25/2022 1:07 AM T [facility] Blood BLOOD SPECIMEN / Unknown Venipuncture / Unknown 06/25/2022 12:07 AM CDT 06/25/2022 12:14 AM CDT Esa Sevilla DO LAB - HEMATOLOGY ORD ERABLES [facility] [address] [place] [address], [facility] [phone] * (ABNORMAL) TEG 6S PLATELET MAPPING (06/25/2022 12:07 AM CDT) TEGPLM (Max Amplitude) Koalin 70(H) 53 - 68 mm 06/25/2022 1:19 AM CDT [facility] TEGPLM (Max Amplitude) ACTF 23(H) 2 - 19 mm 06/25/2022 1:19 AM CDT [facility] TEGPLM (Max Amplitude) ADP 62 45 - 69 mm 06/25/2022 1:19 AM CDT [facility] TEGPLM (Max Amplitude) AA 43(L) 51 - 71 mm 06/25/2022 1:19 AM CDT [facility] TEGPLM %Inhibition ADP 18(H) 0 - 17 % 06/25/2022 1:19 AM CDT [facility] TEGPLM %Inhibition AA 58(H) 0 - 11 % 06/25/2022 1:19 AM CDT [facility] TEGPLM %Aggregation ADP 83 83 - 100 % 06/25/2022 1:19 AM CDT [facility] TEGPLM % Aggregation AA 42(L) 89 - 100 % 06/25/2022 1:19 AM CDT [facility] Blood BLOOD SPECIMEN / Unknown Venipuncture / Unknown 06/25/2022 12:07 AM CDT 06/25/2022 12:14 AM CDT Esa Sevilla DO LAB - HEMATOLOGY ORD ERABLES Performing Organization Address [facility]/ZIP Co de Phone Number [address] [address], [facility] [phone] * (ABNORMAL) PTT [facility] (06/25/2022 12:07 AM CDT) APTT 22.4(L) 23.0 - 38.4 Seconds 06/25/2022 1:17 AM [facility] Comment:Suggested therapeuti c range for full dose I.V. unfractionated heparin therapy for venous thromboembolism is 71 to 109 seconds. Blood BLOOD SPECIMEN / Unknown Venipuncture / Unknown 06/25/2022 12:07 AM CDT 06/25/2022 12:14 AM CDT Esa Sevilla DO LAB - COAGULATION OR DERABLES Performing Organization Address [facility]/ZIP Co de Phone Number [address] [address], [place] [phone] * (ABNORMAL) PT-INR [facility] (06/25/2022 12:07 AM CDT) PT 15.9(H) 12.1 - 14.8 Seconds 06/25/2022 12:35 AM [facility] INR 1.3 See Comment 06/25/2022 12:35 AM T [facility] Comment:The suggested therap eutic range for standard coumadin (warfarin) therapy is an INR of 2.0-3.0. For high-risk patients (Mechanical Mitral Valve Prosthesis, etc.), the suggested prophylactic therapeutic range is an INR of 2.5-3.5. Blood BLOOD SPECIMEN / Unknown Venipuncture / Unknown 06/25/2022 12:07 AM CDT 06/25/2022 12:14 AM CDT Esa Sevilla DO LAB - COAGULATION OR DERABLES Performing Organization Address City/[facility]/ZIP Co de Phone Number [facility] [address] [place] [address], [place] [phone] * TYPE + SCREEN PANEL (06/25/2022 12:07 AM CDT) Antibody Screen NEG 12:57 AM CDT [facility] ABO Rh A NEG 06/25/2022 12:57 AM CDT [facility] Blood Bank BLOOD SPECIMEN / Unknown Venipuncture / Unknown 06/25/2022 12:07 AM CDT 06/25/2022 12:15 AM CDT Esa Sevilla DO LAB - BLOOD BANK ORD ERABLES Performing Organization Address City/[facility]/ZIP Co de Phone Number [facility] [address] [place] [address], [place] [phone] Care Teams Rn Chemical Dependency Relationship Specialty Start Date End Date Sabino Moore MD [address] [place] [id number] PCP - General 03/23/22
--- OUTSIDE RECORDS SUMMARY | 2024-12-09 14:08 | XMS_ITS | Referral Summary ---
Author Organization [facility] Address [address] [place] [address] Care Team Providers Care Erp Technical Lead Name Role Phone Sabino Moore MD Primary Care Provider [phone] Source Comments [facility] [employer],non-owned Affiliates and Associated Physician Practices is amultiple site organization consisting of ambulatory clinics and hospital sitesin [place], [place], [place] and [place]. This disclosure is being madepursuant to the Care Everywhere program and may not contain all information available regarding this patient. Last updated 18.[facility] [employer] Allergies No known active allergies Medications * [...] disease (CKD) 2 Type 2 diabetes mellitus, [facility] long-term current use of insulin 06/25/2022 HTN [...] 7 - 26 mg/dL 07/03/2022 7:38 AM [facility] Creatinine 1.49(H) 0.56 - 0.96 mg/dL 07/03/2022 7:38 AM [facility] Sodium 143 136 - 145 mmol/L 07/03/2022 7:38 AM [facility] Potassium 4.2 3.5 - 4.5 mmol/L 07/03/2022 7:38 AM [facility] Chloride 105 98 - 107 mmol/L 07/03/2022 7:38 AM [facility] CO2 22 22 - 29 mmol/L 07/03/2022 7:38 AM [facility] Glucose 69(L) 70 - 115 mg/dL 07/03/2022 7:38 AM [facility] Albumin 3.2(L) 3.4 - 5.0 g/dL 07/03/2022 7:38 AM [facility] Calcium 9.6 8.4 - 10.2 mg/dL 07/03/2022 7:38 AM [facility] Phosphorus 3.0 2.9 - 5.1 mg/dL 07/03/2022 7:38 AM [facility] Anion Gap 20(H) 8 - 07/03/2022 7:38 AM [facility] BUN/Creatinine Ratio 19 7 - 07/03/2022 7:38 AM [facility] Osmolality Calculated 300 270 - 300 mOsm/kg 07/03/2022 7:38 AM [facility] eGFR by CKD-EPI 38(L) >=90 mL/min/1.7 3 m2 07/03/2022 7:38 AM [facility] Blood BLOOD SPECIMEN / Unknown Lab Venipuncture / Unknown 07/03/2022 5:58 AM CDT 07/03/2022 7:07 AM T Cale Brandon MD LAB [facility] Organization Address City/State/ZIP Co de Phone Number [facility] [address] [place] [address], [facility] [phone] * HEMOGLOBIN A1C (06/27/2022 3:29 AM CDT) Hemoglobin A1c 5.4 <=5.6 % 06/27/2022 8:34 AM [facility] Estimated Average Glucose 108 mg/dL 06/27/2022 8:34 AM [facility] Comment: HbA1c Interpretation: Normal : < 5.7% Pre-diabetes: 5.7-6.4% Diabetes: Equal to or greater than 6.5% Test results diagnostic of diabetes should be repeated for confirmation. Treatment target values recommended by ADA and other clinical organizations should be used to evaluate metabolic control in patients. Reference: [place] [employer], Standards of Care in Diabetes [...] Brandon MD LAB - CHEMISTRY JAYDA RICKETTS [facility] Organization Address City/State/ZIP Co de Phone Number [facility] [address] [place] [address], [facility] [phone] from Last 3 Months or Most Recently Relevant to Health Maintenance Advance Directives * Full Code (Latest Code Status on File) Date Activated Date Inactivated Comments 06/25/2022 4:46 AM 07/04/2022 4:59 PM Care Teams Erp Technical Lead Relationship Specialty Start Date End Date Sabino Moore MD [address] [place] [address] [facility] - General 03/23/22
--- OUTSIDE RECORDS SUMMARY | 2024-12-09 14:09 | XMS_ITS | Clinical Summary ---
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 pectoris Take 1 tablet by mouth twice daily 180 tablet 2 12/29/2023 Active Active Problems Problem Noted Date Diagnosed Date Prosthetic aortic valve stenosis 08/23/2023 Frequent falls 08/28/2022 Anemia of chronic disease 08/28/2022 Morbid (severe) obesity due to excess calories 1 Angina pectoris, unspecified 08/28/2022 Coronary artery disease invo lving grayling coronary artery of grayling heart without angina pectoris 07/17/2022 S/P TAVR [...] (HCC) Murmur, cardiac Hypertension HLD (hyperlipidemia) Stroke ([facility]) 2003 Type 2 diabetes mellitus ([facility]) d iet controlled Pulmonary hypertension ([facility]) Edema bilateral lower extremities Family History Medical [...] often do you attend chur ch or anabaptism services? Never 09/01/2021 Do you belong to any clubs o r organizations such as caodaism groups, unions, fraternal or athletic groups, or [...] on file Legal Sex Female 2:23 AM INSPECTOR PRECISION Gender Identity Not on file Sexual Orientation Not on file Obstetrics History Last Filed Vital Signs Vital Sign Reading Time Taken Comments Blood Pressure 185/82 10/17/2023 11:53 AM INSPECTOR PRECISION Pulse 61 08/23/2023 10:05 AM CDT Temperature [...] 06/25/2032 06/25/2022 Medical Devices Implanted Type Area Volunteer Services Manager Device Identifier Shelf Expiration Date Model / Serial / Lot [employer] V[employer] 28330-16 Perclose 6fr Suture Mediate Knot Push Vascular Device Closure - [id number] Implanted:Qty: 1 on 08/31/2021 by Shaggy Burgess MD at [facility] [employer] 05/10/2023 [id number] / / [id number] [employer] [id number] Perclose 6fr Suture Mediate Knot Push Vascular Device Closure - [id number] Implanted:Qty: 1 on 08/31/2021 by Shaggy Burgess MD at [facility] Vascular 05/10/2023 [id number] / / [id number] [employer] [id number] Valve Heart 23mm Torey 3 Transcatheter - [id number] - [id number] Implanted:Qty: 1 on 08/31/2021 by Shaggy Burgess MD at [facility] [employer] 01/18/2023 [id number] / [id number] / [employer] [id number] Perclose 6fr Suture Mediate Knot Push Vascular Device Closure - [id number] Implanted:Qty: 1 on 08/31/2021 by Shaggy Burgess MD at 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
--- OUTSIDE RECORDS SUMMARY | 2024-12-09 14:09 | XMS_ITS | Clinical Summary ---
Author Organization [facility] Address [address] [place] [address] Care Team Providers Care Director Of Product Marketing Name Role Phone Sabino Moore MD Primary Care Provider [phone] Source Comments [facility],non-owned Affiliates and Associated Physician Practices is amultiple site organization consisting of ambulatory clinics and hospital sitesin [place], [place], [place] and [place]. This disclosure is being madepursuant to the Care Everywhere program and may not contain all information available regarding this patient. Last updated 18.[facility] Allergies No known active allergies Medications * [...] disease (CKD) 2 Type 2 diabetes mellitus, [facility] long-term current use of insulin 06/25/2022 [...] 7 - 26 mg/dL 07/03/2022 7:38 AM [facility] Creatinine 1.49(H) 0.56 - 0.96 mg/dL 07/03/2022 7:38 AM [facility] Sodium 143 136 - 145 mmol/L 07/03/2022 7:38 AM [facility] Potassium 4.2 3.5 - 4.5 mmol/L 07/03/2022 7:38 AM [facility] Chloride 105 98 - 107 mmol/L 07/03/2022 7:38 AM [facility] CO2 22 22 - 29 mmol/L 07/03/2022 7:38 AM [facility] Glucose 69(L) 70 - 115 mg/dL 07/03/2022 7:38 AM [facility] Albumin 3.2(L) 3.4 - 5.0 g/dL 07/03/2022 7:38 AM [facility] Calcium 9.6 8.4 - 10.2 mg/dL 07/03/2022 7:38 AM [facility] Phosphorus 3.0 2.9 - 5.1 mg/dL 07/03/2022 7:38 AM [facility] Anion Gap 20(H) 8 - 18 07/03/2022 7:38 AM [facility] BUN/Creatinine Ratio 19 7 - 23 07/03/2022 7:38 AM [facility] Osmolality Calculated 300 270 - 300 mOsm/kg 07/03/2022 7:38 AM T [facility] eGFR by CKD-EPI 38(L) >=90 mL/min/1.7 3 m2 07/03/2022 7:38 AM [facility] Blood BLOOD SPECIMEN / Unknown Lab Venipuncture / Unknown 07/03/2022 5:58 AM CDT 07/03/2022 7:07 AM CDT Cale Brandon MD LAB - CHEMISTRY JAYDA RICKETTS Performing Organization Address City/[facility]/ZIP Co de Phone Number [facility] [address] [place] [address], [place] [phone] * HEMOGLOBIN A1C (06/27/2022 3:29 AM CDT) Hemoglobin A1c 5.4 <=5.6 % 06/27/2022 8:34 AM [facility] Estimated Average Glucose 108 mg/dL 06/27/2022 8:34 AM [facility] Comment: HbA1c Interpretation: Normal : < 5.7% Pre-diabetes: 5.7-6.4% Diabetes: Equal to or greater than 6.5% Test results diagnostic of diabetes should be repeated for confirmation. Treatment target values recommended by ADA and other clinical organizations should be used to evaluate metabolic control in patients. Reference: [place] Diabetes Association, Standards of Care in Diabetes [...] Brandon MD LAB - CHEMISTRY JAYDA RICKETTS [facility] [address] [place] [address] [phone] from Last 3 Months or Most Recently Relevant to Health Maintenance Advance Directives * Full Code (Latest Code Status on File) Date Activated Date Inactivated Comments 06/25/2022 4:46 AM 07/04/2022 4:59 PM Care Teams Director Of Product Marketing Relationship Specialty Start Date End Date Sabino Moore MD [address] [place] [address] PCP - General 03/23/22
--- OUTSIDE RECORDS SUMMARY | 2024-12-09 14:09 | XMS_ITS | Continuity of Care Document ---
Author Organization [facility] Address [address] [place] [address] [place] [address] Phone Care Team Providers Care Box Storage Worker Name Role Phone Romeonicholasalfred Sterling Unavailable Unavailable Procedures Procedure Date Eye Exam & Treatment Refraction Advance Directives Directive Yes / No Effective Date File Name No Information Encounters Encounter Description Practice Location Reason(s) For Visit Diagnoses Date Provider Providers Copied on Encounter [facility], [address], [place], [place], [id number], [place] tel:[phone] SEC [facility] No Information 7-200 [address] Tori Sterling. [address] [address], [place], [address], [place]. tel:[phone] Family History Family Member Type Diagnosis Age At Onset No Information Payers Payer name Insurance type Covered democrat ID Authoriza tion(s) No Information Social History [...]
--- OUTSIDE RECORDS SUMMARY | 2024-12-09 14:09 | XMS_ITS | Clinical Summary ---
Author Organization [facility] Address [address] [place] [address] Phone Care Team Providers Care Fox Raiser Name Role Phone Sabino Moore MD Primary Care Provider [phone] Allergies No known active allergies Medications Medication [...] Comments Blood Pressure 142/70 12/30/2019 8:56 AM SAFETY SECURITY OFFICER Pulse 72 12/30/2019 8:56 AM SAFETY SECURITY OFFICER Temperature 36.6 ??C (97.9 ??F) 12/30/2019 8:56 AM CS T Respiratory Rate - - Oxygen Saturation - - Inhaled Oxygen Concentration - - Weight 105 kg (231 lb) 12/30/2019 8:56 AM SAFETY SECURITY OFFICER Height 152.4 cm (5') 12/30/2019 8:56 AM SAFETY SECURITY OFFICER Body Mass Index 45.11 12/30/2019 8:56 AM SAFETY SECURITY OFFICER Plan of Treatment Health Maintenance Due Date Last Done Comments Pneumococcal PPSV23/PCV13 65 + Years / Low and Medium Risk (2 of 4 - PCV) 2016 11/19/2011 Influenza Vaccine (#1) 2024 , 08/13/2013, 08/25/2012 Care Teams Fox Raiser Relationship Specialty Start Date End Date Sabino Moore MD [address] [facility] [address] [facility] [address] [place] [address] PCP - General Internal Medicine 12/25/19
--- OUTSIDE RECORDS SUMMARY | 2024-12-09 14:09 | XMS_ITS | Referral Summary ---
Author Organization [facility] [address] Address [address] [place] [address] Care Team Providers Care Gill Box Operator Name Role Phone Sabino Moore MD Primary [...] immediate release tabletIndication s:Coronary artery disease involving tatitlek coronary artery of tatitlek heart without angina pectoris Take 1 tablet by mouth twice daily 180 tablet 2 12/29/2023 Active Active Problems Problem Noted Date Diagnosed Date Prosthetic aortic valve stenosis 08/23/2023 Frequent falls 08/28/2022 Anemia of chronic disease 08/28/2022 Morbid (severe) obesity due to excess calories 1 Angina pectoris, unspecified 08/28/2022 Coronary artery disease invo lving tatitlek coronary artery of tatitlek heart without angina pectoris 07/17/2022 S/P TAVR (transcatheter aortic valve replacement ) 09/07/2021 Pulmonary HTN 02/06/2021 CKD stage 3 due to type 2 diabetes mellitus 01/10 Hypertension associated with diabetes 02/06/2021 Mixed diabetic hyperlipidemi a associated with type 2 diabetes mellitus ([facility]/HCC) 02/06/2021 H/O: CVA (cerebrovascular accident) 02/06/2021 Localized [...] How often do you attend chur or mu-ism services? Never 09/01/2021 Do you belong to [...] place to sleep or slept in a residential (including now)? No 09/01/2021 Personal Safety Answer Date Recorded Getting School Help Needed Not on file 10/23 Comments No Sex and Gender Information Value Date Recorded Sex Assigned at Not on file Legal Sex Female 2:23 AM MANAGER POLICY Gender Identity Not on file Sexual Orientation Not on file Last Filed Vital Signs Vital Sign Reading Time Taken Comments Blood Pressure 185/82 10/17/2023 11:53 AM MANAGER POLICY Pulse 61 08/23/2023 10:05 AM CDT Temperature [...] on file Medical Devices Implanted Type Area Cashier And Waiter/Waitress Device Identifier Shelf Expiration Date Model / Serial / Lot [employer] V[employer] 24562-27 Perclose 6fr Suture Mediate Knot Push Vascular Device Closure - [id number] Implanted:Qty: 1 on 08/31/2021 by Shaggy Burgess MD at [facility] [employer] 05/10/2023 [id number] / / [id number] [employer] [id number] Perclose 6fr Suture Mediate Knot Push Vascular Device Closure - [id number] Implanted:Qty: 1 on 08/31/2021 by Shaggy Burgess MD at [facility] Vascular 05/10/2023 [id number] / / [id number] [employer] [id number] Valve Heart 23mm Torey 3 Transcatheter - [id number] - [id number] Implanted:Qty: 1 on 08/31/2021 by Shaggy Burgess MD at [facility] [employer] 01/18/2023 [id number] / [id number] / [employer] [id number] Perclose 6fr Suture Mediate Knot Push Vascular Device Closure - [id number] Implanted:Qty: 1 on 08/31/2021 by Shaggy Burgess MD at [facility] Vascular 05/10/2023 [id number] / / [id number] Procedures Procedure Name Priority Date/Time Associated Diagnosis Comments POCT LIPID PANEL Routine 02/12/2023 11:4 8 AM CDT Coronary artery disease involving tatitlek coronary artery of tatitlek heart without angina pectoris EGFR Routine 09/01/2021 [...] * eGFR (09/01/2021 4:31 AM CDT) Pathologist [facility] eGFR 28 mL/min/1.7 3 m2 TERI BROWNE [...] LAB BLOOD ORDERABLES Final Resul t TERI [address] [address] Department [place] [address] from Last 3 Months or Most Recently Relevant to Health Maintenance Insurance [facility] [place] [id number] Care Teams Gill Box Operator Relationship Specialty Start Date End Date Sabino Moore MD [address] [facility] [address] [place] [address] PCP - General 03/10/14
--- OUTSIDE RECORDS SUMMARY | 2024-12-09 14:09 | XMS_ITS | Clinical Summary ---
Author Organization [facility] Alex king Agustínhayder Address [address] [place] [address] Care Team Providers Care Pharmacology Professor Name Role Phone Sabino Moore MD Primary Care Provider [phone] Allergies No known active allergies Medications minoxidiL [...] Encounters Date Type Department Care Team Description 12/09/2024 1:00 PM REMOTE CONTROL ASSEMBLER Office Visit [facility] Oncology and H[facility] [address] [place] [address] Luisito Dejesus MD Anemia, chronic disease (Primary Dx) 12/02/2024 External Device Data STL ABSTRACTION Provider, Abstract 12/02/2024 External Device Data STL ABSTRACTION Provider, [...] Sign Reading Time Taken Comments Blood Pressure 145/97 12/09/2024 1:46 PM REMOTE CONTROL ASSEMBLER Pulse 65 12/09/2024 1:46 PM REMOTE CONTROL ASSEMBLER Temperature 37.3 ??C (99.2 ??F) 12/09/2024 1:46 PM CS T Respiratory Rate 15 12/09/2024 1:46 PM REMOTE CONTROL ASSEMBLER Oxygen Saturation 91% 12/09/2024 1:46 PM REMOTE CONTROL ASSEMBLER Inhaled Oxygen Concentration - - Weight 90.6 kg (199 lb 12.8 oz) 12/09/2024 1:46 PM REMOTE CONTROL ASSEMBLER Height 154.9 cm (5' 1 ) 08/31/2022 1:50 PM CDT Body Mass Index 37.75 08/31/2022 1:50 PM CDT Plan of Treatment Upcoming Encounters Date Type Department Care Team (Late st Contact Info) Description 03/16/2025 11:45 AM CDT Office Visit [facility] Oncology [facility] H[facility] [address] [place] [address] Luisito Dejesus MD [address] [facility] [address] [place] [address] Health Maintenance Due Date Last [...] INFLUENZA VACCINE (#1) 2024 , 09/11/2019, 09/09/2017 [place]) Prev entative Visit/Annual Wellness Visit 11/11/2024 DTAP/TDAP/TD VACCINES (2 - T d or Tdap) 06/25/2032 06/25/2022 Procedures Procedure Name Priority Date/Time Associated Diagnosis Comments VITAMIN B12 AND FOLATE Routine 12/08/2024 11:00 AM REMOTE CONTROL ASSEMBLER Anemia, chronic disease IRON, TIBC, AND PERCENT SATURATION Routine 12/08/2024 11:00 AM REMOTE CONTROL ASSEMBLER Anemia, chronic disease FERRITIN Routine 12/08/2024 11:00 AM REMOTE CONTROL ASSEMBLER Anemia, chronic disease from Last 3 Months Results * (ABNORMAL) VITAMIN B12 AND FOLATE (12/08/2024 11:00 AM REMOTE CONTROL ASSEMBLER) VITAMIN B12 1840(H) 200 - 1100 pg/mL [facility] FOLATE, SERUM 5.9 ng/mL [facility] Comment: ? Reference Range ? Low: ? <3.4 ? Borderline: ?3.4-5.4 ? Normal: ?>5.4 Test Performed at: [facility] ??[id number] Thai Brennan MD Blood 12/08/2024 11:0 0 AM REMOTE CONTROL ASSEMBLER 12/08/2024 11:00 AM REMOTE CONTROL ASSEMBLER Luisito Dejesus MD CHEMISTRY ORDERABLES Final Resu lt Performing Organization Address [facility] de Phone Number [facility] [phone] [facility] [address] * (ABNORMAL) IRON, TIBC, AND PERCENT SATURATION (12/08/2024 11:00 AM REMOTE CONTROL ASSEMBLER) IRON 62 45 - 160 mcg/dL [facility] TIBC 208(L) 250 - 450 mcg/dL (calc) [facility] IRON % SATURATION 30 16 - 45 % (calc) [facility] Comment: Test Performed at: [facility] ??[phone] Thai Brennan MD Blood 12/08/2024 11:0 0 AM REMOTE CONTROL ASSEMBLER 12/08/2024 11:00 AM REMOTE CONTROL ASSEMBLER Luisito Dejesus MD CHEMISTRY ORDERABLES Final Resu lt Performing Organization Address [facility] de Phone Number [facility] [phone] [address] * FERRITIN (12/08/2024 11:00 AM REMOTE CONTROL ASSEMBLER) FERRITIN 191 16 - 288 ng/mL [facility] Comment: Test Performed at: [facility] [address] ??[phone] Thai Brennan MD Blood 12/08/2024 11:0 0 AM REMOTE CONTROL ASSEMBLER 12/08/2024 11:00 AM REMOTE CONTROL ASSEMBLER Luisito Dejesus MD CHEMISTRY ORDERABLES Final Resu lt [facility] [phone] [facility] [address] [place] [address] from Last 3 Months Insurance [address] [id number] MCR Care Teams Pharmacology Professor Relationship Specialty Start Date End Date Sabino Moore MD [address] [facility] [address] [place] [address] PCP - General Family Practice 08/31/22
== END 2024-12-09 13:06 | disposition home or self-care (01) ==
LOC: ANHLAB 13:06
PROVIDERS: PCP Family Medicine; Visit Provider Internal Medicine Hematology & Oncology
DX: E31.9 Polyglandular dysfunction, unspecified (principal); D63.8 Anemia in other chronic diseases classified elsewhere
CPT/HCPCS: 36415; 80047; 85025

== ENCOUNTER 2025-09-20 09:51 | Inpatient (IN) | payer MEDICARE, SELFPAY ==
--- OUTSIDE RECORDS SUMMARY | 2008-09-06 03:00 | XMS_ITS | Continuity of Care Document ---
Author Organization [facility] Address [address] [place] [address] [place] [address] Phone Care Team Providers Care Veterinary Surgery Technician Name Role Phone Romeonicholasalfred Sterling Unavailable Unavailable Procedures Procedure Date Eye Exam & Treatment Refraction Advance Directives Directive Yes / No Effective Date File Name No Information Encounters Encounter Description Practice Location Reason(s) For Visit Diagnoses Date Provider Providers Copied on Encounter [facility], [address] [place], [place], [id number], [place] tel:[phone] [facility] No Information [id number] 8 Tori Sterling. [address] [facility] [address], [place], [address], [place]. tel:[phone] Family History Family Member Type Diagnosis Age At Onset No Information Payers Payer name Insurance type Covered libertarian ID Authoriza tion(s) No Information Social History Type Description Quantity Date Captured Comments Sex Female Smoking Status No Information Chief Complaint And Reason For Visit No Information Reason For Referral Reason For Referral No Information History Of Present Illness Encounter Date Complaint History Of Prese nt Illness No Information Functional Status Date Functional Assessmen t No Information Instructions Date Instruction Additional Infor mation No Information Assessments Type Assessment Date No Information Patient Care Teams Name Effective Dates (start - stop) Status Members No Information
[2025-09-20] VITALS (40 sets, daily range): BP systolic 111–169; BP diastolic 40–76; PULSE 68–99; RESP 15–28; TEMP 36.1–36.8; O2SAT 94–100
--- NOTE | ~2025-09-20 | XR_ITS ---
EXAMINATION: XR chest 1V portable COMPARISON: No comparisons available. HISTORY: generalized weakness FINDINGS: Mild pulmonary venous congestion. No pneumothorax. Mild cardiomegaly. Mediastinal and hilar contours are within normal limits. Bony thorax no acute abnormality. Miscellaneous: None Impression: CHF Reviewed, dictated and finalized at location P. TH INFORMATION MANAGER Impression: CHF
--- NOTE | ~2025-09-20 | CT_ITS ---
EXAMINATION: CT pelvis wo con DATE: 09/20/2025 14:17 INDICATION: Sacral ulcer TECHNIQUE: Computed tomography (CT) of the pelvis was performed without intravenous contrast. Automated exposure control and iterative reconstruction technique were employed.The dose-length product was 519.34 mGy-cm. COMPARISON: CT chest, abdomen and pelvis dated dated 06/24/[address] lumbar spine dated 05/06/2024 FINDINGS: 12 degrees lower lumbar levoscoliosis with severe disc height loss with degenerative endplate changes at L5-S1 and severe right-sided disc height loss and mild right-sided degenerative endplate changes at L4-L5. Moderate disc height loss at and L2-L3 and L3-L4. This all without interval change since kay ar spine CT dated 05/06/2024. Mild bilateral hip and sacroiliac osteoarthritis. Couple bone islands in the posterior right ilium. No fracture. Visualized portions of bowels including the appendix are normal. At least 1.6 cm partially visualized cyst at the lower pole the left kidney. Small fat-containing umbilical hernia. Bladder, anteverted uterus and bilateral adnexa are unremarkable. No free fluid in the pelvis. No pathologically enlarged pelvic or inguinal lymphadenopathy. Mild edema in the presacral space. No evident sacral decubitus ulcer or abscess. IMPRESSION: 1. No significant change in 12 degrees lower lumbar levoscoliosis with severe spondylosis. 2. No evident sacral decubitus ulcer, abscess or acute intra-abdominal pelvic process. Reviewed, dictated and finalized at location A. OPEDIC DENTIST IMPRESSION: 1. No significant change in 12 degrees lower lumbar levoscoliosis with severe s pondylosis. 2. No evident sacral decubitus ulcer, abscess or acute intra-abdominal pelvic p rocess.
--- NOTE | ~2025-09-20 | US_ITS ---
EXAMINATION: US renal BI DATE: 09/22/2025 14:23 INDICATION: Acute on chronic kidney disease TECHNIQUE: Multiple ultrasound grayscale images of the kidneys were obtained. COMPARISON: None. FINDINGS: The right kidney measures 11.0 x 5.8 x 5.3 cm. The left kidney measures 12.2 x 6.2 x 5.1 cm. The kidneys demonstrate normal echogenicity. Bilateral anechoic renal cysts measuring 2.5 cm on the right and 2.7 cm on the left. 7 mm echogenic focus in the mid right kidney with posterior twinkle artifact consistent with either a calcified renal stone or atherosclerotic calcification. There is no hydronephrosis in either kidney. The bladder is normal. IMPRESSION: 1. 7 mm calcification at the mid right kidney which could represent a nonobstructing renal stone or atherosclerotic calcification. No hydronephrosis at either kidney. Reviewed, dictated and finalized at location A. GER WELLNESS IMPRESSION: 1. 7 mm calcification at the mid right kidney which could represent a nonobstr ucting renal stone or atherosclerotic calcification. No hydronephrosis at eithe r kidney.
--- NOTE | 2025-09-20 10:05 | ECG_ITS ---
Test Date: 2025-09-20 10:32:56 Measurements Intervals [place] Rate: 57 P: 80 [place]: 168 QRS: -4 QRSD: 113 T: 43 QT: 465 QTc: 456 Interpretive Statements SINUS BRADYCARDIA nonspecific T-wave abnormalities No previous ECG available for comparison Electronically Signed On 09-21-2025 10:54:33 PIPELINER by Dewayne Adan M.D.
--- NOTE | 2025-09-20 10:30 | PC.NURSE ---
Pt arrived to ED with depends in place that was saturated with urine and a BM. This RN and two PCT's cleaned pt up, placed on purewick, depends, and clean linens. Pt straight-cathed for UA. While cleaning pt up, pt found to have large pressure sore to sacrum, approx 16cm across. Some areas there is superficial open tissue with minimal bleeding, large area is black in color. Pt denies pain to area. Site cleaned and large Mepilex sacral foam dressing applied to area, purewick to prevent moisture to site.
[2025-09-20 11:18] LABS: Hematocrit 36.5 % (37.0-47.0); Hemoglobin 11.8 g/dL (12.0-15.0); Immature Granulocyte Percent A 0.8 % (0-0.5); Lymphocytes Absolute Auto 0.38 K/mm3 (0.9-3.2); Mean Corpuscular HGB Conc 32.3 g/dl (32-36); Mean Corpuscular Hemoglobin 27.4 pg (26-34); Mean Corpuscular Volume 84.7 fl (80-100); Nucleated Red Blood Cells Absolute Auto 0.000 K/mm3 (0.0-0.012); Nucleated Red Blood Cells Perc 0.0 % (0.0-0.2); Platelet Count Result 272 k/mm3 (150-375); Red Blood Count 4.31 M/mm3 (4.2-5.4); White Blood Count 18.1 K/mm3 (4.5-10.0)
[2025-09-20 11:23] LABS: Add Urine Microscopic? YES; Appearance Urine Cloudy (Clear); Glucose Urine UA Negative (Negative); Leukocyte Esterase Ur Trace LEU/UL (Negative); Need Manual Microscopic Reviewed; Nitrate Urine Negative (Negative); Specific Grav Ur 1.016 (1.001-1.035)
[2025-09-20 11:38] LABS: Alanine Aminotransferase 23 U/L (6-35); Albumin Level 3.7 g/dL (3.5-5.1); Alkaline Phosphatase 133 U/L (38-126); Anion Gap 11 mmol/L (4-12); Aspartate Amino Transferase 53 U/L (14-36); Bilirubin,Total 1.3 mg/dL (0.2-1.3); Blood Urea Nitrogen 68 mg/dL (7-17); Calcium 8.9 mg/dL (8.4-10.2); Carbon Dioxide 23 mmol/L (22-30); Chloride 98 mmol/L (98-107); Estimated CRCL calculation 8 ml/min; Estimated Glomerular Filt Rate 8; Glucose 138 mg/dL (65-110); Potassium 4.8 mmol/L (3.4-5.0); Sodium 132 mmol/L (137-145); Total Protein 7.3 g/dL (6.3-8.2)
--- OUTSIDE RECORDS SUMMARY | 2025-09-20 13:23 | XMS_ITS | Clinical Summary ---
Author Organization [facility] Alex king Agustínhayder Address [address] [address] Care Team Providers Care Card Assembler Name Role Phone Sabino Moore MD Primary Care Provider [phone] Allergies No known active allergies Medications minoxidiL [...] by mouth 2 times daily. 12/07/2022 Active losartan (COZAAR) 25 mg tablet Take 1 Tablet by mouth daily. 07/24/2025 Active Active Problems Problem Noted Date Diagnosed Date Anemia, chronic disease 09/14/2022 Hypertension associated with diabetes 02/06/2021 Chronic kidney disease, stage IV (severe) 2013 Encounters Date Type Department Care Team Description 09/13/2025 Orders Only [facility] Oncology and Hematology - [place] [address] Luisito Dejesus MD Anemia, chronic disease 09/08/2025 Orders Only [facility]cology [facility]ology - [place] [address] Luisito Dejesus MD 08/30/2025 Orders Only [facility] Oncology and H[facility]ology - [place] [address] [place] [phone] Luisito Dejesus MD Anemia, chronic disease 08/16/2025 Orders Only [facility] Oncology and Hematology - [place] [address] [place] [phone] Luisito Dejesus MD Anemia, chronic disease 08/12/2025 Orders Only [facility] Oncology and H[facility]ology - [place] [address] Luisito Dejesus MD 08/02/2025 Orders Only [facility] Oncology [facility] H[facility]ology - [place] [address] Luisito Dejesus MD Anemia, chronic disease 07/29/2025 Orders Only [facility] Oncology [facility] H[facility]ology - [place] [address] [place] [id number] Luisito Dejesus MD 07/27/2025 11:15 AM CDT Office Visit [facility] - [place] [address] [place] [phone] Luisito Dejesus MD Anemia, chronic disease (Primary Dx) 07/19/2025 Orders Only [facility] Oncology [facility] H[facility]ology - [place] [address] [place] [phone] Luisito Dejesus MD Anemia, chronic disease 07/14/2025 Orders Only [facility] Oncology and Hematology - [place] [address] [place] [address] Luisito Dejesus MD 07/13/2025 External Device Data STL ABSTRACTION Provider, Abstract 07/05/2025 Orders Only [facility]cology and Hematology - [place] [address] [place] [address] Luisito Dejesus MD Anemia, chronic disease 06/21/2025 Orders Only [facility] Oncology and Hematology - [place] [address] [place] [address] Luisito Dejesus MD Anemia, chronic disease from Last 3 Months Social History Tobacco [...] Sign Reading Time Taken Comments Blood Pressure 214/78 07/27/2025 11:20 AM CDT Pulse 55 07/27/2025 11:17 AM CDT Temperature 37.1 C (98.7 F) 07/27/2025 11:17 AM CDT Respiratory Rate 94 07/27/2025 11:17 AM CDT Oxygen Saturation 91% 03/16/2025 11:30 AM CDT Inhaled Oxygen Concentration - - Weight 88 kg (194 lb) 03/16/2025 11:30 AM CDT Height 154.9 cm (5' 1) 08/31/2022 1:50 PM CDT Body Mass Index 36.66 08/31/2022 1:50 PM CDT Plan of Treatment Upcoming Encounters Date Type Department Care Team (Late st Contact Info) Description 11/30/2025 11:15 AM RIBBON LAPPER TENDER Office Visit [facility] Oncology and Hematology - [place] [address] [place] [address] Luisito Dejesus MD [address] [place] [address] Health Maintenance Due Date Last [...] VACCINE (60+ or ) (1 - Risk 50-74 years 1-dose series) 2001 PNEUMOCOCCAL VACCINE 50+ YEA RS (2 of 2 - PCV) 11/19/2012 11/19/2011 ZOSTER VACCINE (2 of 3) 01/26/2013 12/01/2012 OSTEOPOROSIS SCREENING 2016 DIABETES HBA1C Q 6 MONTHS 12/28/2022 06/27/2022 INFLUENZA VACCINE (#1) 2025 , 09/11/2019, 09/09/2017 DTAP/TDAP/TD VACCINES (2 - T d or Tdap) 06/25/2032 06/25/2022 Procedures Procedure Name Priority Date/Time Associated Diagnosis Comments CBC WITH AUTODIFFERENTIAL Routine 2024 10:39 AM CDT CBC WITH AUTODIFFERENTIAL Routine 2024 12:30 PM CDT BASIC METABOLIC PANEL Routine 07/27/2025 7:58 AM CDT CBC WITH AUTODIFFERENTIAL Routine 2024 7:56 AM CDT IRON, TIBC, AND PERCENT SATURATION Routine 07/13/2025 12:48 PM CDT BASIC METABOLIC PANEL Routine 07/13/2025 10:05 AM CDT from Last 3 Months Results * CBC WITH AUTODIFFERENTIAL (09/07/2025 10:39 AM CDT) Only the most recent of3 resultswithin the time period is included. Blood us Luisito Dejesus MD HEMATOLOGY ORDERABLES Final Res ult * BASIC METABOLIC PANEL (07/27/2025 7:58 AM CDT) Only the most recent of2 resultswithin the time period is included. Blood us Luisito Dejesus MD CHEMISTRY ORDERABLES Final Resu lt * IRON, TIBC, AND PERCENT SATURATION (07/13/2025 12:48 PM CDT) Blood us Luisito Dejesus MD CHEMISTRY ORDERABLES Final Resu lt from Last 3 Months Insurance [employer] PPO [facility] Care Teams Card Assembler Relationship Specialty Start Date End Date Sabino Moore MD [address] [facility] [address] [place] [address] PCP - General Family Practice 08/31/22
--- OUTSIDE RECORDS SUMMARY | 2025-09-20 13:23 | XMS_ITS | Clinical Summary ---
Author Organization [facility] Address [address] [place] [address] Care Team Providers Care Nuclear Chemistry Technician Name Role Phone Sabino Moore MD Primary Care Provider [phone] Source Comments [facility],non-owned Affiliates and Associated Physician Practices is amultiple site organization consisting of ambulatory clinics and hospital sitesin [place], [place], [place] and [place]. This disclosure is being madepursuant to the Care Everywhere program and may not contain all information available regarding this patient. Last updated 18.[facility] Allergies No known active allergies Medications * Be aware that medications may not be up to date on this document. Alwaysverify current medications with the patient. Calcium Carbonate+Vitam in D 600-200 MG-UNIT TABS Take 1 tablet [...] 4 Grams (4000 mg) / 24 hours. 2 Active isosorbide mononitrate CR 24hr (Imdur) 60 MG tablet Take 1 (one) tablet by mouth once daily 30 tablet 1 2 Active minoxidil (Loniten) 2.5 MG tablet Take 1 (one) tablet by mouth 2 times daily 30 tablet 1 2 Active labetalol (Normodyne; Trandate) 200 MG tablet Take 1 (one) tablet by mouth 2 times daily 30 tablet 1 2 Active Active Problems Problem Noted Date Diagnosed Date Altered mental status 06/25/2022 Sepsis with acute hypoxic respiratory failure Shock 06/25/2022 Fall 06/25/2022 Anemia in chronic kidney disease (CKD) 2 Type 2 diabetes mellitus, [facility] long-term current use of insulin 06/25/2022 HTN (hypertension) 06/25/2022 CVA (cerebral vascular accident) 06/25/2022 HLD (hyperlipidemia) 06/25/2022 Depression 06/25/2022 History of transcatheter aortic valve replacemen t (TAVR) 06/25/2022 Immunizations Immunization Administration Dates Next Due TDAP (7yrs+) 06/25/2022 [...] money to get more. Never true 06/26/2022 Comments Unknown Sex and Gender Information Value Date Recorded Sex Assigned at Not on file Legal Sex Female 11:39 PM CDT Gender Identity Not on file Sexual Orientation Not on file Last Filed Vital Signs Vital Sign Reading Time Taken Comments Blood Pressure 115/63 07/04/2022 12:26 PM CDT Pulse 60 07/04/2022 12:26 PM CDT Temperature 36.7 C (98 F) 07/04/2022 12:26 PM CDT Respiratory Rate 20 07/04/2022 12:26 PM CDT Oxygen Saturation 100% 07/04/2022 12:26 PM CDT Inhaled Oxygen Concentration 30% 06/26/2022 2 :15 PM CDT Weight 83.5 kg (184 lb 1.4 oz) 07/04/2022 3:57 A M CDT Height 160 cm (5' 3) 06/24/2022 11:52 PM CDT Body Mass Index [...] SCREENING 07/16/1969 PNEUMOCOCCAL VACCINE 50+ (1 of 1 - PCV) 2001 ZOSTER VACCINE (1 of 2) 2001 Respiratory Syncytial Virus (RSV) Vaccine Pt: or over 60 yrs (1 - Risk 60-74 years 1-dose series) 2011 DIABETES-FOOT EXAM WITH MONOFILAMENT 06/25/2022 DIABETES-HGB A1C 12/28/2022 06/27/2022 DIABETES-SERUM CREATININE 07/03/20232021, 07/02/2022, 07/01/2022, Additional history exists DEPRESSION SCREENING 11/11/2024 DIABETES - URINE PROTEIN SCREENING 11/11/2024 COVID-19 VACCINE ( - season) 2025 INFLUENZA VACCINE (#1) 2025 9, 09/09/2017, 08/13/2013, Additional history exists DTAP/TDAP/TD VACCINES (2 - Td or Tdap) 06/25/2032 06/25/2022 HEPATITIS B VACCINE Aged Out No longe r eligible based on patient's age to complete this topic HIB VACCINE Aged Out No longer eligi ble based on patient's age to complete this topic HPV VACCINE Aged Out No longer eligi ble based on patient's age to complete this topic MENINGOCOCCAL (Group B) VACCINE SHARED DECISION-MAKING Aged Out No longer eligible based on patient's age to complete this topic MENINGOCOCCAL GROUPS A/C/Y/W VACCINE Aged Out No longer eligible based [...] 19 7 - 23 07/03/2022 7:38 AM [facility] Osmolality Calculated 300 270 - 300 mOsm/kg 07/03/2022 7:38 AM [facility] eGFR by CKD-EPI 38(L) >=90 mL/min/1.7 3 m2 07/03/2022 7:38 AM [facility] Blood BLOOD SPECIMEN / Unknown Lab Venipuncture / Unknown 07/03/2022 5:58 AM CDT 07/03/2022 7:07 AM CDT us Cale Brandon MD LAB - CHEMISTRY ORDERABLES F inal Result [facility] [address] [place] [address], [facility] [phone] * HEMOGLOBIN A1C (06/27/2022 3:29 AM CDT) [...] to evaluate metabolic control in patients. Reference: [place] Diabetes Association, Standards of Care in Diabetes -2020 In patients 70 years and older consider HbA1c target range of 7.0-7.5% (Reference: Yeison Rangel et al. JAMDA. 2012) The Sebia assay for the measurement of HbA1c is a National Glycohemoglobin Standardization Program (NGSP) certified method. Blood BLOOD SPECIMEN / Unknown Venipuncture / Unknown 06/27/2022 3:29 AM CDT 06/27/2022 3:39 AM CDT us Cale Brandon MD LAB - CHEMISTRY ORDERABLES F inal Result [facility] [address] [place] [address], [facility] [phone] from Last 3 Months or Most Recently Relevant to Health Maintenance Insurance A[employer] MEDICARE ADV AETNA [facility] Address: [phone] [place] [phone] Advance Directives * Full Code (Latest Code Status on File) Date Activated Date Inactivated Comments 06/25/2022 4:46 AM 07/04/2022 4:59 PM Care Teams Nuclear Chemistry Technician Relationship Specialty Start Date End Date Sabino Moore MD [address] [place] [address] PCP - General 03/23/22
--- OUTSIDE RECORDS SUMMARY | 2025-09-20 13:23 | XMS_ITS | Clinical Summary ---
Author Organization [facility] [address] [facility] [address] Address [address] [place] [address] Care Team Providers Care Sr Solutions Consultant Name Role Phone Sabino Moore MD Primary [...] immediate release tabletIndication s:Coronary artery disease involving kashia coronary artery of kashia heart without angina pectoris Take 1 tablet by mouth twice daily 180 tablet 2 12/29/2023 Active Active Problems Problem Noted Date Diagnosed Date Prosthetic aortic valve stenosis 08/23/2023 Frequent falls 08/28/2022 Anemia of chronic disease 08/28/2022 Morbid (severe) obesity due to excess calories 1 Angina pectoris, unspecified 08/28/2022 Coronary artery disease invo lving kashia coronary artery of kashia heart without angina pectoris 07/17/2022 S/P TAVR [...] Resolved Date Severe aortic stenosis 02/06/202102/12 Immunizations Immunization Administration Dates Next Due Influenza, Quadrivalent, Hig h Dose, Preservative Free, Intrr 09/01/2021 Surgical History Surgery Date Site/Laterality Comments GANGLION CYST EXCISION Left BRAIN SURGERY 11/11/2003 - 11/10/2004 intracranial bleed, release CARDIAC CATHETERIZATION Medical History Medical History Date Comments Aortic stenosis Intracranial bleed (HCC) 2003 Osteopenia Depression Diabetic nephropathy (HCC) Murmur, cardiac Hypertension HLD (hyperlipidemia) Stroke (HCC) 2003 Type 2 diabetes mellitus diet co ntrolled Pulmonary hypertension (HCC) Edema bilateral lower extremities Family History Medical History Relation Name Comments Heart attack Father No Known Problems Mother Relation Name Status Comments Father (Age 88) Mother (Age 90) Social History Tobacco Use Types Packs/Day Years Used Date Smoking Tobacco: Former Cigarettes Q uit: 1981 Smokeless Tobacco: Never Tobacco Cessation:Counseling Given: Not Answered Social Connection and Isolation Panel Answer Date Recorded In a typical week, how many times do you talk on the phone with family, friends, or neighbors? Three times a week 09/01/2021 How often do you get togethe r with friends or relatives? Never 09/01/2021 How often do you attend [facility] or jainism services? Never 09/01/2021 Do you belong to any clubs o r organizations such as yarsani groups, unions, fraternal or athletic groups, or [...] on file Legal Sex Female 2:23 AM STAIN REMOVER Gender Identity Not on file Sexual Orientation Not on file Last Filed Vital Signs Vital Sign Reading Time Taken Comments Blood Pressure 185/82 10/17/2023 11:53 AM STAIN REMOVER Pulse 61 08/23/2023 10:05 AM CDT Temperature 36.3 C (97.4 F) 09/01/2021 11:07 AM CDT Respiratory Rate 18 09/01/2021 11:07 AM CDT Oxygen Saturation 97% 08/23/2023 10:05 AM CDT Inhaled Oxygen Concentration - - Weight 90.4 kg (199 lb 4.8 oz) 08/23/2023 10:05 AM CDT Height 154.9 cm (5' 1) 08/23/2023 10:05 AM CDT Body Mass Index 37.66 08/23/2023 10:05 AM CDT Plan of Treatment Health Maintenance Due Date Last Done Comments Albumin Creatinine Ratio, Urine 1950 Breast Cancer Screening-Mammogram 1950 Colon Cancer Screening-Colonoscopy 1950 Depression Screening 1950 Hepatitis C Screening 1950 Osteoporosis Screening-Bone Density Scan 1950 Dilated Eye Exam 1950 Foot Exam 1951 Hepatitis B Screening 1969 Pneumococcal vaccine 65+ (2 of 2 - PCV) 11/19/2012 11/19/2011 Zoster Vaccine (2 of 3) 01/26/2013 12/01/2012 Well Visit 65+ 2016 Fall Risk Assessment 09/01/2022 09/01/2021 eGFR 09/01/2022 09/01/2021, 08/11, 07/03/2021 Hemoglobin A1C 12/28/2022 06/27/2022 Lipid Panel 02/13/2024 02/12/2023, 03/0 01/2022, 02/06/2021 Influenza Vaccine (#1) 2025 , 09/11/2019, 09/09/2017, Additional history exists DTaP/Tdap/Td Vaccine (2 - Td or Tdap) 06/25/2032 06/25/2022 Medical Devices Implanted Type Area Engraver Set Up Operator Device Identifier Shelf Expiration Date Model / Serial / Lot [employer] [id number] Perclose 6fr Suture Mediate Knot Push Vascular Device Closure - [id number] Implanted:Qty: 1 on 08/31/2021 by Shaggy Burgess MD at [facility] [employer] 05/10/2023 [id number] / / [id number] [employer] [id number] Perclose 6fr Suture Mediate Knot Push Vascular Device Closure - [id number] Implanted:Qty: 1 on 08/31/2021 by Shaggy Burgess MD at [facility] [employer] 05/10/2023 [id number] / / [id number] [employer] [id number] Valve Heart 23mm Torey 3 Transcatheter - [id number] - [id number] Implanted:Qty: 1 on 08/31/2021 by Shaggy Burgess MD at [facility] [employer] 01/18/2023 [id number] / [id number] [employer] [id number] Perclose 6fr Suture Mediate Knot Push Vascular Device Closure - [id number] Implanted:Qty: 1 on 08/31/2021 by Shaggy Burgess MD at [facility] [employer] 05/10/2023 [id number] / / [id number] Procedures Procedure Name Priority Date/Time Associated Diagnosis Comments POCT LIPID PANEL Routine 02/12/2023 11:4 8 AM CDT Coronary artery disease involving kashia coronary artery of kashia heart without angina pectoris EGFR Routine 09/01/2021 [...] BROWNE Comment: Interpretive Data Reference Interval Normal >/= 90 mL/min/1.73m2 Mildly decreased* 60 - 89 mL/min/1.73m2 Mildly to moderately decreased 45 - 59 mL/min/1.73m2 Moderately to severely decreased 30 - 44 mL/min/1.73m2 Severely decreased 15 - 29 mL/min/1.73m2 Kidney Failure < 15 mL/min/1.73m2 *Relative to young adult level Estimated glomerular [...] LAB BLOOD ORDERABLES Final Resul t TERI BROWNE [address] Department [place] [address] from Last 3 Months or Most Recently Relevant to Health Maintenance [facility] Care Teams Sr Solutions Consultant Relationship Specialty Start Date End Date Sabino Moore MD [address] [facility] [address] [place] [address] PCP - General 03/10/14
--- NOTE | 2025-09-20 14:02 | ED.GENADULT ---
HPI - General Adult General Chief complaint: Weakness Stated complaint: weak Time Seen by Provider: 09/20/25 12:38 History of Present Illness HPI narrative: 75 old female presented to the emergency department for evaluation for increasing generalized fatigue. Patient is cared for at home by her . Patient spends majority of her time in a recliner. Today he had difficulty removing her from the recliner so he called for lift assist. Related Data Home Medications ?Medication ?Instructions ?Recorded ?Confirmed ?Last Taken ?Type Calcium 600 + D(3) 600 mg PO DAILY 10/13/21 09/20/25 09/18/25 History aspirin 81 mg tablet 81 mg PO DAILY 10/13/21 09/20/25 09/19/25 History epoetin colin 20,000 unit/mL 20,000 unit subcut .[id number] 03/25/25 09/20/25 08/25/25 History injection solution (Procrit) mecobalamin (vitamin B12) 2,500 2,500 mcg PO DAILY 03/25/25 09/20/25 09/18/25 History mcg chewable tablet minoxidil 2.5 mg tablet 5 mg PO BID 06/08/25 09/20/25 09/20/25 History Allergies Allergy/AdvReac Type Severity Reaction Status Date / Time No Known Allergies Allergy Verified 09/20/25 17:26 Review of Systems Review of Systems: All systems reviewed & are unremarkable except as noted in HPI and below PMFSH Past Medical History Medical History (Updated 09/20/25 @ 17:30 by Pao Hood APRN) Chronic venous stasis History of diabetes mellitus CVA (cerebral vascular accident) SDH (subdural hematoma) Aortic stenosis s/p TAVR Chronic kidney disease, stage 4 (severe) Hypertensive chronic kidney disease with stage 1 through stage 4 chronic kidney disease, or unspecified chronic kidney disease Mixed hyperlipidemia Surgical History Surgical History History of cataract extraction OD 10/2024, OS 11/2024 S/P TAVR (transcatheter aortic valve replacement) Ganglion cyst s/p excision from left wrist Family History Family History Father Family history of coronary artery disease Diabetes mellitus Social History Social History Social History: She is and lives with her . She has no children. 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 She denies any alcohol or illicit drugs. Her is a durable power assistant county attorney for healthcare. Code status full code Smoking packs per day: 2 Smoking cigarettes per day: 40.0 Years smoked: 25 Smoking pack-years: 50.00 Smoking status: Former smoker Tobacco type: cigarettes Second hand tobacco smoke exposure: Yes Smoking end date: 11/11/94 Alcohol intake: never Substance use: never Substance use type: does not use Lack of Transportation: YES Lack of Food: Never True Current Housing: I Have Housing Concerned About Future Housing: No Difficulty Paying Gas/Electric Bills: No Difficulty Paying for Meds: No Currently Unemployed: No Education: High School Diploma/GED Difficulty w/ Childcare or Family Care: No Living arrangements: alone Occupation/Education: retired Gender identity (if verbalized by the patient): Female Spiritual care concerns: No Exam Narrative: APPEARANCE: Ill-appearing HEAD: normocephalic, atraumatic. EYES: PERRLA/EOMI, conjunctivae clear. NOSE: Normal no drainage EARS:TMS clear with good light reflex. THROAT: Pharynx clear, no exudate. NECK: Supple. No adenopathy, no masses. RESPIRATORY: Airway patent, respirations nonlabored. Clear to auscultation bilaterally, no rales, rhonchi, wheezing. CARDIOVASCULAR: Regular rate and rhythm without murmurs rubs or gallops. ABDOMINAL: Soft, nontender, nondistended, normal bowel sounds MUSCULOSKELETAL: Moves all extremities. Strength/ROM intact, No edema, No calf tenderness. NEURO: Alert. Cranial nerves II through XII intact. Good gait. Good coordination SKIN: Necrotizing on sacrum with no purulent drainage Course Vital Signs Vital signs: Vital Signs Temperature 98.2 F 09/20/25 09:51 Pulse Rate 74 09/20/25 09:51 Respiratory Rate 19 09/20/25 09:51 Blood Pressure 139/57 L 09/20/25 09:51 Pulse Oximetry 100 09/20/25 09:51 Oxygen Delivery Room Air 09/20/25 09:51 Temperature 98.2 F 09/20/25 09:51 Pulse Rate 96 09/20/25 14:03 Respiratory Rate 25 H 09/20/25 14:03 Blood Pressure 128/51 L 09/20/25 16:02 Pulse Oximetry 95 09/20/25 16:02 Oxygen Delivery Room Air 09/20/25 09:51 Medical Decision Making MDM Narrative Medical decision making narrative: [age] female present to the emergency department for evaluation for increased generalized weakness. Patient is currently afebrile but does have a leukocytosis of 18.1 hemoglobin 11.8. Patient does have an acute kidney injury with a creatinine of 5.4 with a baseline closer to 2.3. Patient's urine was leukocyte esterase positive but otherwise negative for infection, chest x-ray shows evidence of CHF. Patient does changes of chronic venous stasis on all lower extremities and patient's feet are sure with appearing consistent with dehydration, patient does not appear to be fluid overloaded. Patient does have a significant sacral ulcer from move remaining in the recliner. No purulent discharge from this wound but there is black necrotic tissue overlying the majority of the sacrum, surgery was consulted. Patient was started on vancomycin cefepime and Flagyl. Case was discussed with hospitalist patient was accepted for admission. Differential Diagnosis Differential Diagnosis: Sacral decubitus ulcer, UTI, cellulitis, pneumonia, colitis, diverticulitis, osteomyelitis Vital Signs Vital Signs: Vital Signs Temperature 98.2 F 09/20/25 09:51 Pulse Rate 74 09/20/25 09:51 Respiratory Rate 19 09/20/25 09:51 Blood Pressure 139/57 L 09/20/25 09:51 Pulse Oximetry 100 09/20/25 09:51 Oxygen Delivery Room Air 09/20/25 09:51 Temperature 98.2 F 09/20/25 09:51 Pulse Rate 96 09/20/25 14:03 Respiratory Rate 25 H 09/20/25 14:03 Blood Pressure 128/51 L 09/20/25 16:02 Pulse Oximetry 95 09/20/25 16:02 Oxygen Delivery Room Air 09/20/25 09:51 Lab Data Lab results reviewed: Yes I reviewed the patient's lab results. 09/20/25 11:12 09/20/25 11:12 Labs: Lab Results 09/20/25 09/20/25 Range/Units 11:04 11:12 WBC 18.1 H (4.5-10.0) K/mm3 RBC 4.31 (4.2-5.4) M/mm3 Hgb 11.8 L (12.0-15.0) g/dL Hct 36.5 L (37.0-47.0) % MCV 84.7 (80-100) fl MCH 27.4 (26-34) pg MCHC 32.3 (32-36) g/dl RDW 15.0 H (11.5-14.5) % Plt Count 272 (150-375) k/mm3 MPV 9.4 (7.4-10.4) fl Immature Gran % (Auto) 0.8 H (0-0.5) % Neut % (Auto) 96.0 H (45.5-73.1) % Lymph % (Auto) 2.1 L (18.3-44.2) % [place] % (Auto) 0.6 L (2.6-8.5) % Eos % (Auto) 0.3 (0-4.4) % Baso % (Auto) 0.2 (0.2-1.2) % Lymph # (Auto) 0.38 L (0.9-3.2) K/mm3 [place] # (Auto) 0.1 (0.1-0.6) K/mm3 Eos # (Auto) 0.1 (0-0.3) K/mm3 Baso # (Auto) 0.0 (0.0-0.1) K/mm3 Abs Immat Gran (auto) 0.14 H (0.00-0.031) K/mm3 Absolute Neuts (auto) 17.4 H (1.3-6.7) K/mm3 Absolute Nucleated RBC 0.000 (0.0-0.012) K/mm3 Nucleated RBC % 0.0 (0.0-0.2) % Sodium 132 L (137-145) mmol/L Potassium 4.8 (3.4-5.0) mmol/L Chloride 98 (98-107) mmol/L Carbon Dioxide 23 (22-30) mmol/L Anion Gap 11 (4-12) mmol/L BUN 68 H D (7-17) mg/dL Creatinine 5.40 H (0.7-1.0) mg/dL Estim Creat Clear Calc 8 ml/min Estimated GFR 8 L (59 - ) Glucose 138 H (65-110) mg/dL Calcium 8.9 (8.4-10.2) mg/dL Total Bilirubin 1.3 (0.2-1.3) mg/dL AST 53 H (14-36) U/L ALT 23 (6-35) U/L Alkaline Phosphatase 133 H (38-126) U/L Total Protein 7.3 (6.3-8.2) g/dL Albumin 3.7 (3.5-5.1) g/dL Urine Color Yellow (Yellow) Urine Appearance Cloudy H (Clear) Urine pH 5.0 (5.0-9.0) Ur Specific [place] 1.016 (1.001-1.035) Urine Protein 3+ H (Negative) mg/dL Urine Glucose (UA) Negative (Negative) mg/dL Urine Ketones Negative (Negative) mg/dL Ur Blood (Man) 1+ H (Negative) Urine Nitrate Negative (Negative) Urine Bilirubin Negative (Negative) Urine Urobilinogen 0.2 (<2.0) mg/dL Add Ur Microanalysis Reviewed Leukocyte Esterase Rfl Trace H (Negative) ELVIA/UL Urine RBC 0-2 (0-2) /hpf Urine WBC 0-5 (0-3) /hpf Ur Squamous Epith Cells None seen (Few) /hpf Urine Bacteria None seen /hpf Urine Casts 11-20 Imaging Data Radiologist's impression: Impressions Chest X-Ray 09/20/25 12:14 Impression: CHF Pelvis CT 09/20/25 14:19 IMPRESSION: 1. No significant change in 12 degrees lower lumbar levoscoliosis with severe spondylosis. 2. No evident sacral decubitus ulcer, abscess or acute intra-abdominal pelvic process. Discharge Plan Discharge Clinical Impression: Acute kidney injury superimposed on CKD, Generalized weakness, Decubitus ulcer of sacral area Patient Disposition: Still a Patient Condition: Serious
--- NOTE | 2025-09-20 14:13 | PC.NURSE ---
Pillow placed under right hip to help with pressure on sacrum. Phlebotomy called about collecting second blood culture set.
--- NOTE | 2025-09-20 14:21 | PC.NURSE ---
Patient rolled by two RN's for surgery to assess patient's sacral wound.
--- NOTE | 2025-09-20 14:38 | PC.NURSE ---
responder and surgery team looking at patient's sacral wound.
--- NOTE | 2025-09-20 14:46 | PM.CNGS ---
Assessment and Plan Assessment and plan (1) Unstageable pressure ulcer of sacral region: Code(s): L89.150 - Pressure ulcer of sacral region, unstageable Status: Acute Assessment and Plan: Patient presented to the ED this morning after she was found to have generalized weakness and fatigue. She currently resides at home with her who takes care of her. Upon arrival to ED, physical exam revealed sacral ulcer. WBC 18.1. She was started on IV cefepime, vancomycin, and flagyl. CT revealed no evident sacral decubitus ulcer, abscess, or acute intra-abdominal pelvic process. Upon physical exam, wound covers entirety of sacrum roughly 6 in x 7 in. Appears to have more ischemic changes rather than infectious etiology. Strong gangrenous odor. No purulence. Generally speaking, the wound appears stable and does not require immediate surgical intervention. We will continue to treat conservatively with Q12 dressing changes with Santyl. There was on suspicious area to the right of the gluteal cleft with some firmness and possible crepitus that released a strong odor. This is likely the source of necrossis. Will reassess tomorrow. If intervention is necessary, would likely be able to do a bedside debridement as patient tolerated manipulation of the wound today without any pain. Continue IV antibiotics. (2) Type 2 diabetes mellitus with diabetic nephropathy: Code(s): E11.21 - Type 2 diabetes mellitus with diabetic nephropathy Status: Acute (3) Chronic kidney disease, stage 4 (severe): Code(s): N18.4 - Chronic kidney disease, stage 4 (severe) Status: Chronic (4) Anemia in chronic kidney disease (CKD): Code(s): N18.9 - Chronic kidney disease, unspecified; D63.1 - Anemia in chronic kidney disease Status: Acute (5) CHF (congestive heart failure): Code(s): I50.9 - Heart failure, unspecified Status: Chronic (6) Generalized weakness: Code(s): R53.1 - Weakness Status: Acute Plan Discussed patient's case and plan of care with Dr. Ruffin. History of Present Illness Consult details Consult date: 09/20/25 Reason for consult: other (sacral ulcer) Requesting physician: Gerber Lopez MD Narrative: Patient is a 75 year old female with history of CKD, type 2 diabetes mellitus, aortic stenosis (s/p TAVR), CVA, CHF, chronic venous stasis who we have been asked to see in surgical consultation for a sacral ulcer. Patient presented to the Emergency Department this morning with chief complaint of generalized weakness and fatigue. Patient currently resides at home and is taking care of by her . Patient leads a largely sedentary lifestyle, spending most of the day seated in a recliner. Upon admission to emergency department, physical exam revealed a sacral decubitus ulcer. Labs were drawn and showed a white blood cell count of 18.1. General surgery team this time. Upon interview, patient denies any recent fever or chills. Denies pain to the area. A CT was obtained and demonstrated no evidence sacral decubitus ulcer, abscess or acute intra-abdominal pelvic process. [facility] Past Medical History Medical History (Updated 09/20/25 @ 15:10 by Alicia Linn PA-C) Chronic venous stasis History of diabetes mellitus CVA (cerebral vascular accident) SDH (subdural hematoma) Aortic stenosis s/p TAVR Chronic kidney disease, stage 4 (severe) Hypertensive chronic kidney disease with stage 1 through stage 4 chronic kidney disease, or unspecified chronic kidney disease Mixed hyperlipidemia Surgical History Surgical History History of cataract extraction OD 10/2024, OS 11/2024 S/P TAVR (transcatheter aortic valve replacement) Ganglion cyst s/p excision from left wrist Family History Family History Father Family history of coronary artery disease Diabetes mellitus Social History Social History Social History: She is and lives with her . She has no children. 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 She denies any alcohol or illicit drugs. Her is a durable power supervisor intelligence analyst for healthcare. Code status full code Smoking packs per day: 1 Smoking cigarettes per day: 20.0 Years smoked: 6 Smoking pack-years: 6.00 Tobacco type: cigarettes Second hand tobacco smoke exposure: No Alcohol intake: never Substance use: never Substance use type: does not use Living arrangements: alone Occupation/Education: retired Gender identity (if verbalized by the patient): Female Spiritual care concerns: No Meds Home Medications and Allergies Home Medications ?Medication ?Instructions ?Recorded ?Confirmed ?Type Calcium 600 + D(3) 600 mg PO DAILY 10/13/21 08/26/25 History aspirin 81 mg tablet 81 mg PO DAILY 10/13/21 08/26/25 History citalopram 20 mg tablet 20 mg PO DAILY #90 tabs 01/20/25 08/26/25 Rx metoprolol tartrate 50 mg tablet 50 mg PO BID #180 tabs 01/21/25 08/26/25 Rx epoetin colin 20,000 unit/mL 20,000 unit subcut .[id number] 03/25/25 08/26/25 History injection solution (Procrit) mecobalamin (vitamin B12) 2,500 2,500 mcg PO DAILY 03/25/25 08/26/25 History mcg chewable tablet isosorbide mononitrate 30 mg 30 mg PO DAILY #90 tabs 04/22/25 08/26/25 Rx tablet,extended release 24 hr minoxidil 2.5 mg tablet 5 mg PO BID 06/08/25 08/26/25 History ferrous sulfate 325 mg (65 mg 325 mg PO BID #180 tabs 06/16/25 08/26/25 Rx iron) tablet losartan 25 mg tablet 25 mg PO DAILY #30 tabs 06/28/25 08/26/25 Rx atorvastatin 80 mg tablet (Lipitor) 80 mg PO DAILY #90 tabs 07/19/25 08/26/25 Rx furosemide 40 mg tablet 20 mg (1/2 x 40 mg) PO DAILY #45 08/26/25 08/26/25 Rx tabs Allergies Allergy/AdvReac Type Severity Reaction Status Date / Time No Known Allergies Allergy Verified 08/26/25 11:02 Vital Signs Vital Signs - 24 hr 09/20/25 09:51 09/20/25 11:17 09/20/25 11:19 Temperature 98.2 F Pulse Rate 74 68 91 Respiratory Rate 19 18 24 H Blood Pressure 139/57 L 155/52 H Pulse Oximetry 100 98 Oxygen Delivery Room Air 09/20/25 11:21 09/20/25 11:22 09/20/25 11:30 Temperature Pulse Rate 71 70 Respiratory Rate 20 24 H 25 H Blood Pressure 169/62 H Pulse Oximetry 98 97 Oxygen Delivery 09/20/25 11:32 09/20/25 11:45 09/20/25 11:47 Temperature Pulse Rate 78 78 75 Respiratory Rate 20 22 H 15 Blood Pressure 154/67 H 143/68 H Pulse Oximetry 97 96 96 Oxygen Delivery 09/20/25 12:00 09/20/25 12:02 09/20/25 12:15 Temperature Pulse Rate 71 70 70 Respiratory Rate 28 H 24 H 22 H Blood Pressure 111/76 Pulse Oximetry 100 96 94 Oxygen Delivery 09/20/25 12:17 09/20/25 12:30 09/20/25 12:32 Temperature Pulse Rate 69 71 75 Respiratory Rate 23 H 23 H 23 H Blood Pressure 120/55 L 120/56 L Pulse Oximetry 95 96 96 Oxygen Delivery 09/20/25 12:45 09/20/25 12:46 09/20/25 13:00 Temperature Pulse Rate 99 97 70 Respiratory Rate 24 H 25 H 28 H Blood Pressure 124/48 L Pulse Oximetry 95 96 95 Oxygen Delivery 09/20/25 13:02 09/20/25 13:03 09/20/25 13:15 Temperature Pulse Rate 71 98 98 Respiratory Rate 23 H 26 H 26 H Blood Pressure 126/53 L Pulse Oximetry 95 95 95 Oxygen Delivery 09/20/25 13:16 09/20/25 13:30 09/20/25 13:31 Temperature Pulse Rate 99 99 78 Respiratory Rate 26 H 26 H 26 H Blood Pressure 131/66 129/52 L Pulse Oximetry 95 95 95 Oxygen Delivery 09/20/25 13:45 09/20/25 13:46 09/20/25 14:00 Temperature Pulse Rate 98 97 98 Respiratory Rate 25 H 19 22 H Blood Pressure 124/62 Pulse Oximetry 97 97 94 Oxygen Delivery 09/20/25 14:02 Temperature Pulse Rate 99 Respiratory Rate 21 H Blood Pressure 122/49 L Pulse Oximetry 95 Oxygen Delivery Exam Const: General: comfortable and no acute distress Eyes: General: appearance normal, both eyes and all related structures Neck: Neck: supple Resp: Effort & Inspection: tachypneic Cardio: Rate: regular rate Back/Spine/Pelvis: Other: Sacral pressure ulcer roughly 6 in x 7 in. Dark purple/black necrotic tissue throughout entirety of wound. Wound demonstrates changes more consistent with ischemia rather than infection. No purulence. Minimal serosanguineous drainage. Strong gangrenous odor apparent. Small area to 3 oclock region to the right of the gluteal cleft with some firmness and possible crepitus - likely source of necrosis. No surrounding redness. No pain to the area. Back/spine/pelvis image:  1. Neuro: Speech: normal speech Extrem: General: normal to inspection Psych: Mental Status: mental status grossly normal Results Labs 09/20/25 11:12 09/20/25 11:12 Labs: Abnormal lab results 09/20/25 09/20/25 Range/Units 11:04 11:12 WBC 18.1 H (4.5-10.0) K/mm3 Hgb 11.8 L (12.0-15.0) g/dL Hct 36.5 L (37.0-47.0) % RDW 15.0 H (11.5-14.5) % Immature Gran % (Auto) 0.8 H (0-0.5) % Neut % (Auto) 96.0 H (45.5-73.1) % Lymph % (Auto) 2.1 L (18.3-44.2) % [place] % (Auto) 0.6 L (2.6-8.5) % Lymph # (Auto) 0.38 L (0.9-3.2) K/mm3 Abs Immat Gran (auto) 0.14 H (0.00-0.031) K/mm3 Absolute Neuts (auto) 17.4 H (1.3-6.7) K/mm3 Sodium 132 L (137-145) mmol/L BUN 68 H D (7-17) mg/dL Creatinine 5.40 H (0.7-1.0) mg/dL Estimated GFR 8 L (59 - ) Glucose 138 H (65-110) mg/dL AST 53 H (14-36) U/L Alkaline Phosphatase 133 H (38-126) U/L Urine Appearance Cloudy H (Clear) Urine Protein 3+ H (Negative) mg/dL Ur Blood (Man) 1+ H (Negative) Leukocyte Esterase Rfl Trace H (Negative) ELVIA/UL Diabetes panel 09/20/25 Range/Units 11:12 Sodium 132 L (137-145) mmol/L Potassium 4.8 (3.4-5.0) mmol/L Chloride 98 (98-107) mmol/L Carbon Dioxide 23 (22-30) mmol/L BUN 68 H D (7-17) mg/dL Creatinine 5.40 H (0.7-1.0) mg/dL Glucose 138 H (65-110) mg/dL Calcium 8.9 (8.4-10.2) mg/dL AST 53 H (14-36) U/L ALT 23 (6-35) U/L Alkaline Phosphatase 133 H (38-126) U/L Total Protein 7.3 (6.3-8.2) g/dL Albumin 3.7 (3.5-5.1) g/dL Calcium panel 09/20/25 Range/Units 11:12 Calcium 8.9 (8.4-10.2) mg/dL Albumin 3.7 (3.5-5.1) g/dL Pituitary panel 09/20/25 Range/Units 11:12 Sodium 132 L (137-145) mmol/L Potassium 4.8 (3.4-5.0) mmol/L Chloride 98 (98-107) mmol/L Carbon Dioxide 23 (22-30) mmol/L BUN 68 H D (7-17) mg/dL Creatinine 5.40 H (0.7-1.0) mg/dL Glucose 138 H (65-110) mg/dL Calcium 8.9 (8.4-10.2) mg/dL Adrenal panel 09/20/25 Range/Units 11:12 Sodium 132 L (137-145) mmol/L Potassium 4.8 (3.4-5.0) mmol/L Chloride 98 (98-107) mmol/L Carbon Dioxide 23 (22-30) mmol/L BUN 68 H D (7-17) mg/dL Creatinine 5.40 H (0.7-1.0) mg/dL Glucose 138 H (65-110) mg/dL Calcium 8.9 (8.4-10.2) mg/dL Total Bilirubin 1.3 (0.2-1.3) mg/dL AST 53 H (14-36) U/L ALT 23 (6-35) U/L Alkaline Phosphatase 133 H (38-126) U/L Total Protein 7.3 (6.3-8.2) g/dL Albumin 3.7 (3.5-5.1) g/dL All other labs normal.
[2025-09-20] MEDS: LACTATED RINGERS 1,000 ML 999 ML IV CONT (14:53)
[2025-09-20] MEDS: CEFEPIME 0.5 GM in SODIUM CHLORIDE 0.9% IV 50 ML 100 ML IVPB (14:53)
[2025-09-20] MEDS: VANCOMYCIN 1,250 MG/NS 250 ML 1,250 MG/250 ML BAG 166.67 MG IVPB (14:56)
[2025-09-20] MEDS: metroNIDAZOLE 500 MG/ISO 100ML 500 MG/100 ML BAG 100 MG IVPB ×2 (14:57→20:53)
--- NOTE | 2025-09-20 15:57 | PM.IMHP ---
H&P: HPI History of Present Illness Date/Time: 09/20/25 15:57 Chief Complaint: Weakness Narrative: 75-year-old female past medical history of CVA, aortic stenosis s/p TAVR, CKD, SDH after fall, HTN, hyperlipidemia, dementia, DMII presents to the ED on 09/20/2025 via EMS from home with her with complaints of generalized weakness. Per the patient's , patient has been increasingly weak over the past week but has been unable to get out of her chair for the past 3 days. He also noticed decreased p.o. intake. states he decided to call EMS to help get her up. At baseline, patient can ambulate with her walker to the bathroom. He describes that her recliner that she normally sleeps in was soaked in urine as she has not been able to get up. Denies chest pain, cough, shortness of breath, fever. Venous stasis to bilateral lower extremities Initial vital signs 139/57, HR 74, respirations 19, afebrile and 100% on room air Labs significant for WBC 18.1, sodium 132, BUN 68, creatinine 5.4, AST 53, alk-phos 133. UA without signs of infection Chest x-ray reveals CHF CT pelvis redemonstrates 12 degrees lower lumbar levoscoliosis with severe spondylosis. No evidence sacral decubitus ulcer, abscess, or acute intra-abdominal pelvic process Review of Systems Review of Systems: All systems reviewed & are unremarkable except as noted in HPI and below PMFSH Past Medical History Medical History Hypertension Chronic venous stasis History of diabetes mellitus CVA (cerebral vascular accident) SDH (subdural hematoma) Aortic stenosis s/p TAVR Chronic kidney disease, stage 4 (severe) Hypertensive chronic kidney disease with stage 1 through stage 4 chronic kidney disease, or unspecified chronic kidney disease Mixed hyperlipidemia Surgical History Surgical History History of cataract extraction OD 10/2024, OS 11/2024 S/P TAVR (transcatheter aortic valve replacement) Ganglion cyst s/p excision from left wrist Family History Family History Father Family history of coronary artery disease Diabetes mellitus Social History Social History Social History: She is and lives with her . She has no children. 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 She denies any alcohol or illicit drugs. Her is a durable power employment law attorney for healthcare. Code status full code Smoking packs per day: 2 Smoking cigarettes per day: 40.0 Years smoked: 25 Smoking pack-years: 50.00 Tobacco type: cigarettes Second hand tobacco smoke exposure: Yes Smoking end date: 11/11/94 Alcohol intake: never Substance use: never Substance use type: does not use Lack of Transportation: YES Lack of Food: Never True Current Housing: I Have Housing Concerned About Future Housing: No Difficulty Paying Gas/Electric Bills: No Difficulty Paying for Meds: No Currently Unemployed: No Education: High School Diploma/GED Difficulty w/ Childcare or Family Care: No Living arrangements: alone Occupation/Education: retired Gender identity (if verbalized by the patient): Female Spiritual care concerns: No Meds Home Medications and Allergies Home Medications ?Medication ?Instructions ?Recorded ?Confirmed ?Type Calcium 600 + D(3) 600 mg PO DAILY 10/13/21 09/20/25 History aspirin 81 mg tablet 81 mg PO DAILY 10/13/21 09/20/25 History citalopram 20 mg tablet 20 mg PO DAILY #90 tabs 01/20/25 09/20/25 Rx metoprolol tartrate 50 mg tablet 50 mg PO BID #180 tabs 01/21/25 09/20/25 Rx epoetin colin 20,000 unit/mL 20,000 unit subcut .[id number] 03/25/25 09/20/25 History injection solution (Procrit) mecobalamin (vitamin B12) 2,500 2,500 mcg PO DAILY 03/25/25 09/20/25 History mcg chewable tablet isosorbide mononitrate 30 mg 30 mg PO DAILY #90 tabs 04/22/25 09/20/25 Rx tablet,extended release 24 hr minoxidil 2.5 mg tablet 5 mg PO BID 06/08/25 09/20/25 History ferrous sulfate 325 mg (65 mg 325 mg PO BID #180 tabs 06/16/25 09/20/25 Rx iron) tablet losartan 25 mg tablet 25 mg PO DAILY #30 tabs 06/28/25 09/20/25 Rx atorvastatin 80 mg tablet (Lipitor) 80 mg PO DAILY #90 tabs 07/19/25 09/20/25 Rx furosemide 40 mg tablet 20 mg (1/2 x 40 mg) PO DAILY #45 08/26/25 09/20/25 Rx tabs Allergies Allergy/AdvReac Type Severity Reaction Status Date / Time No Known Allergies Allergy Verified 09/20/25 17:26 Vital Signs Vital Signs - 24 hr 09/20/25 09:51 09/20/25 11:17 09/20/25 11:19 Temperature 98.2 F Pulse Rate 74 68 91 Respiratory Rate 19 18 24 H Blood Pressure 139/57 L 155/52 H Pulse Oximetry 100 98 Oxygen Delivery Room Air 09/20/25 11:21 09/20/25 11:22 09/20/25 11:30 Temperature Pulse Rate 71 70 Respiratory Rate 20 24 H 25 H Blood Pressure 169/62 H Pulse Oximetry 98 97 Oxygen Delivery 09/20/25 11:32 09/20/25 11:45 09/20/25 11:47 Temperature Pulse Rate 78 78 75 Respiratory Rate 20 22 H 15 Blood Pressure 154/67 H 143/68 H Pulse Oximetry 97 96 96 Oxygen Delivery 09/20/25 12:00 09/20/25 12:02 09/20/25 12:15 Temperature Pulse Rate 71 70 70 Respiratory Rate 28 H 24 H 22 H Blood Pressure 111/76 Pulse Oximetry 100 96 94 Oxygen Delivery 09/20/25 12:17 09/20/25 12:30 09/20/25 12:32 Temperature Pulse Rate 69 71 75 Respiratory Rate 23 H 23 H 23 H Blood Pressure 120/55 L 120/56 L Pulse Oximetry 95 96 96 Oxygen Delivery 09/20/25 12:45 09/20/25 12:46 09/20/25 13:00 Temperature Pulse Rate 99 97 70 Respiratory Rate 24 H 25 H 28 H Blood Pressure 124/48 L Pulse Oximetry 95 96 95 Oxygen Delivery 09/20/25 13:02 09/20/25 13:03 09/20/25 13:15 Temperature Pulse Rate 71 98 98 Respiratory Rate 23 H 26 H 26 H Blood Pressure 126/53 L Pulse Oximetry 95 95 95 Oxygen Delivery 09/20/25 13:16 09/20/25 13:30 09/20/25 13:31 Temperature Pulse Rate 99 99 78 Respiratory Rate 26 H 26 H 26 H Blood Pressure 131/66 129/52 L Pulse Oximetry 95 95 95 Oxygen Delivery 09/20/25 13:45 09/20/25 13:46 09/20/25 14:00 Temperature Pulse Rate 98 97 98 Respiratory Rate 25 H 19 22 H Blood Pressure 124/62 Pulse Oximetry 97 97 94 Oxygen Delivery 09/20/25 14:02 09/20/25 14:03 09/20/25 14:38 Temperature Pulse Rate 99 96 Respiratory Rate 21 H 25 H Blood Pressure 122/49 L Pulse Oximetry 95 94 95 Oxygen Delivery 09/20/25 14:39 09/20/25 14:45 09/20/25 15:00 Temperature Pulse Rate Respiratory Rate Blood Pressure 116/53 L Pulse Oximetry 95 95 96 Oxygen Delivery 09/20/25 15:15 09/20/25 15:30 Temperature Pulse Rate Respiratory Rate Blood Pressure 126/45 L Pulse Oximetry 94 95 Oxygen Delivery Exam Narrative: GENERAL: in no acute distress. Poor hygiene HEAD: Normocephalic, atraumatic. EYES: history of cataracts, conjunctiva clear NOSE: Normal no drainage. THROAT: Pharynx clear, no exudate. Mucous membranes dry NECK: Trachea midline. . No adenopathy, no masses. RESPIRATORY: Airway patent, respirations nonlabored. CTA. CARDIOVASCULAR: Regular rate and rhythm BREASTS: Defer GASTROINTESTINAL: Abdomen is soft and nontender. No organomegaly. Bowel sounds normal in all quadrants. GENITOURINARY: PureWick in place with shae urine MUSCULOSKELETAL: Moves all extremities. Bilateral lower extremity 3+ edema with and chronic skin changes from venous stasis. No open wounds. Scattered blisters intact. Bilateral feet warm with sensation intact. Skin has some wrinkles then it and is not tight and shiny. SKIN: Warm, dry, normal color. NEURO: A&O X2. Speech clear PSYCHIATRIC: Normal interaction H&P: Results Labs Labs: Short CBC 09/20/25 Range/Units 11:12 WBC 18.1 H (4.5-10.0) K/mm3 Hgb 11.8 L (12.0-15.0) g/dL Hct 36.5 L (37.0-47.0) % Plt Count 272 (150-375) k/mm3 BMP 09/20/25 11:12 Sodium 132 L Potassium 4.8 Chloride 98 Carbon Dioxide 23 BUN 68 H D Creatinine 5.40 H Glucose 138 H Calcium 8.9 Liver Function 09/20/25 Range/Units 11:12 Total Bilirubin 1.3 (0.2-1.3) mg/dL AST 53 H (14-36) U/L ALT 23 (6-35) U/L Alkaline Phosphatase 133 H (38-126) U/L Albumin 3.7 (3.5-5.1) g/dL Urine 09/20/25 Range/Units 11:04 Urine Color Yellow (Yellow) Urine Appearance Cloudy H (Clear) Urine pH 5.0 (5.0-9.0) Ur Specific [place] 1.016 (1.001-1.035) Urine Protein 3+ H (Negative) mg/dL Urine Glucose (UA) Negative (Negative) mg/dL Assessment and Plan Assessment and plan (1) Acute kidney injury superimposed on CKD: Code(s): N17.9 - Acute kidney failure, unspecified; N18.9 - Chronic kidney disease, unspecified Status: Acute Assessment and Plan: Creatinine on presentation 5.4. Baseline runs between 2.3-2.9. Likely related to recent poor p.o. intake. Patient does follow with Nephrology outpatient. - trend renal function - UA: Positive for leukocyte esterase but negative for infection - s/p 2 L of IV fluid, f/u repeat Cr pending - bladder scan p.r.n. - monitor I&Os - Renal dose med, avoid nephrotoxins - holding home Lasix for time being - consider nephrology consult if creatinine does not improve (2) Deep tissue injury: Code(s): T14.8XXA - Other injury of unspecified body region, initial encounter Status: Acute Assessment and Plan: Bilateral buttocks evolving DTI. Likely sustained recently as she has been unable to ambulate over the past few days. -general surgery consult -blood cultures pending -localized wound care with Santyl, Xeroform gauze, and ABD -cefepime, Flagyl, vanc started on 09/20 (3) Chronic venous stasis: Code(s): I87.8 - Other specified disorders of veins Status: Chronic Assessment and Plan: Bilateral lower extremity 3+ edema with and chronic skin changes from venous stasis. No open wounds. Scattered blisters intact. Bilateral feet warm with sensation intact. Skin has some wrinkles then it and is not tight and shiny. Patient has home health nurses that come out and wrap her legs, according to . -wound care consult -elevate lower extremities (4) CHF (congestive heart failure): Qualifiers: Heart failure chronicity: chronic Heart failure type: unspecified Qualified Code(s): I50.9 - Heart failure, unspecified Code(s): I50.9 - Heart failure, unspecified Status: Chronic Assessment and Plan: Not in acute exacerbation. Appears dry on exam. Total of 2 L IV fluid given -holding Lasix for now in setting of [place] on CKD - BNP pending - monitor I&Os and daily weights - trend renal function -echo ordered: Most recent in 2021 with EF of 65-70 present (5) Generalized weakness: Code(s): R53.1 - Weakness Status: Acute Assessment and Plan: Per the patient's , patient has been increasingly weak over the past week but has been unable to get out of her chair for the past 3 days. Baseline able to ambulate with her walker to the bathroom. Likely multifactorial with several comorbid conditions including CHF, venous stasis, CKD, now with wound to buttocks. -PT/OT eval -trend electrolytes and replace as needed -encourage p.o. intake, nutritional supplements (6) Hypertension: Qualifiers: Hypertension type: primary hypertension Qualified Code(s): I10 - Essential (primary) hypertension Code(s): I10 - Essential (primary) hypertension Status: Chronic Assessment and Plan: Continue isosorbide, losartan, metoprolol, minoxidil -closely monitor blood pressure in setting of acute illness (7) Anemia, chronic disease: Code(s): D63.8 - Anemia in other chronic diseases classified elsewhere Status: Chronic Assessment and Plan: Following heme/onc for procrit. Continue ferrous sulfate 325 b.i.d. Plan Diet: Renal GI prophylaxis: NA DVT prophylaxis: Heparin subQ lines/drains: PIV Fluids: 1 L LR in ED. 1 L NS given on floor Code status: Full Quality VTE Prophylaxis VTE prophylaxis: pharmacologic ordered Hospitalist MIPS Advance Care Plan I have confirmed that the patient's Advanced Care Plan is present, code status is documented, or surrogate decision maker is listed in patient medical record.: Yes Medication Reconciliation I have utilized all available resources to obtain, update and review the patients current medications (includes all prescriptions, OTC, herbals, cannabis, and nutritional supplements).: Yes
--- NOTE | 2025-09-20 16:09 | WPCEDHO ---
ED Hand Off Checklist All vitals saved:YES IV Site documented:YES All med administrations documented:YES Triage Note Triage Note Pt brought in by EMS from home 09/20/25 09:51 where pt lives with her . EMS reports call was initially for lift assist, as was unable to help pt out of her recliner this am due to progressive weakness over the last few days. More frequent urination reported. Pt denies any pain anywhere, and denies any other complaints. FSBS for EMS 130. 4+ pitting edema to BLE with darker discoloration to lower legs, no wounds present, skin intact. Right pupil misshapen, reports cataract hx. Pt poor historian in regards to medical hx, disoriented to time but otherwise answers questions appropriately. Allergies No Known Allergies Allergy (Verified 08/26/25 11:02) Current Diagnoses Anemia in chronic kidney disease (09/20/25) Type 2 diabetes mellitus with diabetic nephropathy (09/20/25) Heart failure, unspecified (09/20/25) Pressure ulcer of sacral region, unstageable (09/20/25) Chronic kidney disease, stage 4 (severe) (09/20/25) Chronic kidney disease, unspecified (09/20/25) Weakness (09/20/25) Family History (Last Reviewed 08/26/25 @ 11:02 by Nunu Ybarra MA) Father Family history of coronary artery disease Diabetes mellitus Active Medications including assessments/comments Vancomycin HCl (Vancomycin 1,250 Mg/Ns 250 Ml) 1,250 mg in 250 mls @ 166.667 mls/hr IVPB ONCE ONE Stop: 09/20/25 16:29 Last Admin: 09/20/25 14:56 Dose: 166.67 mls/hr Documented By: ELICIA Infusion/Titration Document 09/20/25 14:56 ELICIA (Rec: 09/20/25 14:56 [facility] [id number]) Intake IV Site Peripheral Access Right Antecubital Container Volume 250 Waste Amount 0 Dosing Infusion Rate 166.67 Increase/Decrease Started Elapsed Time Elapsed Time ( 0m minutes) Administered/Completed Medications Discontinued Medications Metronidazole (Flagyl 500 Mg/Iso Soln 100 Ml) 500 mg in 100 mls @ 100 mls/hr IVPB ONCE STA Stop: 09/20/25 14:50 Last Infusion: 09/20/25 16:06 Dose: Infused Documented By: Admin: 09/20/25 14:57 Dose: 100 mls/hr Documented By: ELICIA Lactated Ringer's (Lr - Lactated Ringers Iv) 1,000 mls @ 999 mls/hr IV CONT .Q1H1M STA Stop: 09/20/25 15:05 Last Infusion: 09/20/25 16:06 Dose: Infused Documented By: Admin: 09/20/25 14:53 Dose: 999 mls/hr Documented By: ELICIA Cefepime HCl 0.5 gm/ Sodium (Chloride) 50 mls @ 100 mls/hr IVPB ONCE STA Stop: 09/20/25 14:50 Last Admin: 09/20/25 15:41 Dose: Not Given Documented By: ELICIA Non-Admin Reason: Order Discontinued Cefepime HCl 0.5 gm/ Sodium (Chloride) 50 mls @ 100 mls/hr IVPB ONCE STA Stop: 09/20/25 14:52 Last Infusion: 09/20/25 15:40 Dose: Infused Documented By: Admin: 09/20/25 14:53 Dose: 100 mls/hr Documented By: ELICIA Notes 09/20/25 14:38 Nurse Note by Elizabeth Landin finishing area operator and surgery team looking at patient's sacral wound. Initialized on 09/20/25 14:38 - END OF NOTE 09/20/25 14:21 Nurse Note by Elizabeth Landin Patient rolled by two RN's for surgery to assess patient's sacral wound. Initialized on 09/20/25 14:21 - END OF NOTE 09/20/25 14:13 Nurse Note by Elizabeth Landin Pillow placed under right hip to help with pressure on sacrum. Phlebotomy called about collecting second blood culture set. Initialized on 09/20/25 14:13 - END OF NOTE 09/20/25 10:30 (created 09/20/25 11:47) Nurse Note by Shruti Alvarado Pt arrived to ED with depends in place that was saturated with urine and a BM. This RN and two PCT's cleaned pt up, placed on purewick, depends, and clean linens. Pt straight-cathed for UA. While cleaning pt up, pt found to have large pressure sore to sacrum, approx 16cm across. Some areas there is superficial open tissue with minimal bleeding, large area is black in color. Pt denies pain to area. Site cleaned and large Mepilex sacral foam dressing applied to area, purewick to prevent moisture to site. Initialized on 09/20/25 11:47 - END OF NOTE Interventions/Assessments IV / Saline Lock, Insert Start: 09/20/25 09:39 Freq: Status: Active Protocol: Document 09/20/25 15:18 [facility] (Rec: 09/20/25 15:19 AM[facility] [id number]) IV Assessment Peripheral Access Left Hand IV Catheter Access Initiated IV Insertion Date 09/20/25 IV Insertion Time 15:18 Catheter Gauge 18 IV Site Assessment WNL IV Care and WNL Maintenance Peripheral Access Right Hand IV Catheter Access Initiated IV Insertion Date 09/20/25 IV Insertion Time 15:18 Catheter Gauge 20 IV Site Assessment WNL IV Care and WNL Maintenance PA: Cardiovascular Assessment Start: 09/20/25 09:39 Freq: Status: Active Protocol: Document 09/20/25 11:41 RAFA (Rec: 09/20/25 11:43 JEChel [id number]) Cardiovascular Assessment Skin Description Normal Color Rhythm/Strength Monitor EKG Rythm Sinus Bradycardia Edema Assessment Bilateral Lower Leg(s) Type Pitting Edema Degree 4+ (6-8 mm) PA: Neurological Assessment Start: 09/20/25 09:39 Freq: Status: Active Protocol: Document 09/20/25 11:41 RAFA (Rec: 09/20/25 11:43 JEChel [id number]) Neurological Assessment Hallucination Type None Level of Alert,Awake Consciousness Arousable to Verbal Orientation Oriented to Person,Oriented to Place,Disoriented to Time Neurological Weakness, General Symptoms Behavior Cooperative,Dependent Patient Able to Comprehend Comprehension Ability to Maintain Unable to Assess Balance Facial Symmetry Symmetrical Speech Pattern Clear Bilateral Leg(s) Extremity Movement Weak Push Description Additional Strength BLE very swollen and weak Comment [place] Coma Scale Eyes Open Verbal Disoriented Motor Follows Commands [place] Coma Total 14 Score Last Vital Signs Temperature 98.2 F 09/20/25 09:51 Pulse Rate 96 09/20/25 14:03 Respiratory Rate 25 H 09/20/25 14:03 Pulse Oximetry 95 09/20/25 16:02 Blood Pressure 128/51 L 09/20/25 16:02 Blood Pressure Mean 72 09/20/25 16:02 Blood Pressure Position Sitting 09/20/25 09:51 Oxygen Delivery Room Air 09/20/25 09:51 Weight 78.1 kg 09/20/25 09:51 Last Result - Abnormals Only WBC 18.1 K/mm3 (4.5-10.0) H 09/20/25 11:12 Hgb 11.8 g/dL (12.0-15.0) L 09/20/25 11:12 Hct 36.5 % (37.0-47.0) L 09/20/25 11:12 RDW 15.0 % (11.5-14.5) H 09/20/25 11:12 Immature Gran % (Auto) 0.8 % (0-0.5) H 09/20/25 11:12 Neut % (Auto) 96.0 % (45.5-73.1) H 09/20/25 11:12 Lymph % (Auto) 2.1 % (18.3-44.2) L 09/20/25 11:12 [place] % (Auto) 0.6 % (2.6-8.5) L 09/20/25 11:12 Lymph # (Auto) 0.38 K/mm3 (0.9-3.2) L 09/20/25 11:12 Abs Immat Gran (auto) 0.14 K/mm3 (0.00-0.031) H 09/20/25 11:12 Absolute Neuts (auto) 17.4 K/mm3 (1.3-6.7) H 09/20/25 11:12 Sodium 132 mmol/L (137-145) L 09/20/25 11:12 BUN 68 mg/dL (7-17) H D 09/20/25 11:12 Creatinine 5.40 mg/dL (0.7-1.0) H 09/20/25 11:12 Estimated GFR 8 (59-) L 09/20/25 11:12 Glucose 138 mg/dL (65-110) H 09/20/25 11:12 AST 53 U/L (14-36) H 09/20/25 11:12 Alkaline Phosphatase 133 U/L (38-126) H 09/20/25 11:12 Urine Appearance Cloudy (Clear) H 09/20/25 11:04 Urine Protein 3+ mg/dL (Negative) H 09/20/25 11:04 Ur Blood (Man) 1+ (Negative) H 09/20/25 11:04 Leukocyte Esterase Rfl Trace ELVIA/UL (Negative) H 09/20/25 11:04 Most Recent Suicide Severity Rating Suicide Severity Rating NO RISK INDICATED 09/20/25 09:51
--- NOTE | 2025-09-20 17:17 | ADMGEN ---
This patient, Amelie Menjivar, was admitted to [facility] Surg Room 330-01. Patient/family oriented to hospital policies and general routines including ID bracelet, bed and alarms, visiting hours, pain management, procedures, bathroom and other care routines, personal items, smoking policy, room service/diet, and visiting hours. Information on how to activate the Rapid Response Team has been discussed. Patient/Family are encouraged to report perceived risks to care and to ask questions if they do not understand what they are told or what they should do. Recieved from Emergency Department
[2025-09-20] MEDS: SODIUM CHLORIDE 0.9% IV 1,000 ML 125 ML IV CONT (17:36)
--- NOTE | 2025-09-20 18:08 | WNDPHOTO ---
PHOTO ONLY - See Nursing Notes and/ or assessments for documentation.
--- NOTE | 2025-09-20 18:11 | WNDPHOTO ---
PHOTO ONLY - See Nursing Notes and/ or assessments for documentation.
[2025-09-20] MEDS: METOPROLOL TARTRATE 50 MG TAB PO (20:52)
[2025-09-20] MEDS: COLLAGENASE OINT 30 GM TUBE 1 APPLIC TOPICAL (20:52)
[2025-09-20 22:07] LABS: Anion Gap 6 mmol/L (4-12); Calcium 7.5 mg/dL (8.4-10.2); Carbon Dioxide 21 mmol/L (22-30); Chloride 101 mmol/L (98-107); Glucose 118 mg/dL (65-110); Potassium 3.7 mmol/L (3.4-5.0); Sodium 128 mmol/L (137-145)
[2025-09-20 22:20] LABS: Blood Urea Nitrogen 64 mg/dL (7-17); Estimated CRCL calculation 9 ml/min; Estimated Glomerular Filt Rate 8
[2025-09-20 23:14] LABS: NT Pro B Type Natriuretic Pept > 30000 pg/mL (19.9-100)
--- NOTE | 2025-09-21 | ECHO_ITS ---
Patient Info Name: Amelie Menjivar Age: 75 years : 1950 Gender: Female HR: 59 bpm BP: 118 / 40 mmHg Technical Quality: Good Exam Date: 09/21/2025 10:22 AM Patient Status: I Admit Date: 09/21/2025 Exam Type: CA echo doppler color flow Complete two-dimensional, color flow and Doppler transthoracic echocardiogram is performed. Staff Referring Physician: Gerber Lopez Office Messenger: Marco A Wesley III Attending Provider: Virginia Frederick Summary 1. Complete two-dimensional, color flow and Doppler transthoracic echocardiogram is performed. 2. The left ventricle is normal in size with hyperdynamic systolic function. There is severe concentric left ventricular hypertrophy. The left ventricular ejection fraction is visually greater than 70%. 3. The right ventricle is normal in size and systolic function. Left Ventricle The left ventricle is normal in size with hyperdynamic systolic function. There is severe concentric left ventricular hypertrophy. The left ventricular ejection fraction is visually greater than 70%. Right Ventricle The right ventricle is normal in size and systolic function. Left Atria The left atrium is mildly dilated. Right Atria The right atrium is mildly dilated. Atrial Septum The atrial septum is not well visualized. 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 There were no perivalvular or intravalvular regurgitation. The gradients across the valve is increased however similar compared to previous. Pulmonic Valve The pulmonic valve is not well visualized. There is no color Doppler evidence of pulmonic valve regurgitation. Mitral Valve The mitral valve leaflets are sclerotic. There is trace mitral regurgitation. Tricuspid Valve The tricuspid valve is normal. There is trace tricuspid regurgitation. Pericardium/Pleural Pericardium is normal in appearance with no evidence for significant pericardial effusion. Inferior Vena Cava Inferior vena cava is not well visualized. Aorta The visualized portions of the ascending aorta measures 3.4 cm in diameter. Left Ventricular Outflow Tract Name Value Normal LVOT 2D LVOT Diameter 2.0 cm LVOT Doppler LVOT Peak Velocity 191 cm/s LVOT Peak Gradient 15 mmHg LVOT Mean Gradient 7 mmHg LVOT VTI 45 cm LVOT VTI/AV VTI Ratio 0.5 LVOT Stroke Volume 139 ml LVOT CO 7.7 l/min Pulmonic Valve Name Value Normal PV Doppler PV Peak Velocity 228 cm/s PV Peak Gradient 21 mmHg Mitral Valve Name Value Normal MV Doppler MV Peak Gradient 12 mmHg MV Mean Gradient 4 mmHg MV Area (Cont Eq VTI) 2.6 cm2 MV Regurgitation Doppler MR Peak Gradient 90 mmHg MV Diastolic Function MV E Peak Velocity 148 cm/s MV A Peak Velocity 133 cm/s MV E/A 1.1 MV Decel Time (PW) 348 ms MV Annular TDI MV E/e' (Septal) 31.7 MV E/e' (Lateral) 18.0 MV E/e' (Average) 24.8 Tricuspid Valve Name Value Normal TV Annular TDI TV Lateral Luly s' Velocity 15.0 cm/s >=9.5 Aortic Valve Name Value Normal AV Doppler AV Peak Velocity 340 cm/s AV Peak Gradient 46 mmHg AV Mean Gradient 27 mmHg AV VTI 87 cm AV Area (Cont Eq VTI) 1.6 cm2 >=3.0 AV Area (Cont Eq Thomas) 1.7 cm2 AV DI (Thomas) 0.56 AV Regurgitation 2D LVOT Area 3.1 cm2 Ventricles Name Value Normal LV Dimensions 2D/MM IVS Diastolic Thickness (2D) 1.3 cm 0.6-1.0 LVID Diastole (2D) 4.9 cm 3.8-5.2 LVIW Diastolic Thickness (2D) 1.4 cm 0.6-0.9 LVID Systole (2D) 2.5 cm 2.2-3.5 LVOT Diameter 2.0 cm LV Mass (2D Cubed) 273.49 g 67.00-162.00 Relative Wall Thickness (2D) 0.59 <=0.42 LV Fractional Shortening/Ejection Fraction 2D/MM LV Fractional Shortening (2D) 48 % 27-45 LV EF (2D Teichholz) 79 % LV Diastolic Volume (4C MOD) 75 ml LV EF (4C MOD) 70 % LV Diastolic Volume (2C MOD) 92 ml LV EF (2C MOD) 65 % LV Diastolic Volume (BP MOD) 85 ml 46-106 LV Systolic Volume (BP MOD) 28 ml 14-42 LV EF (BP MOD) 67 % 54-74 LV Diastolic Length (4C) 8.2 cm LV Systolic Length (4C) 6.7 cm LV Stroke Volume (4C MOD) 53 ml Atria Name Value Normal LA Dimensions LA Volume (4C A-L) 73 ml LA Volume (BP A-L) 82 ml RA Dimensions RA Area (4C) 18.1 cm2 <=18.0 Report Signatures
[2025-09-21 05:26] VITALS: BP 118/40; PULSE 60; RESP 20; TEMP 36.3; O2SAT 100
[2025-09-21] MEDS: metroNIDAZOLE 500 MG/ISO 100ML 500 MG/100 ML BAG 100 MG IVPB ×3 (05:34→20:44)
[2025-09-21 06:04] LABS: Hematocrit 27.5 % (37.0-47.0); Hemoglobin 8.9 g/dL (12.0-15.0); Immature Granulocyte Percent A 0.5 % (0-0.5); Lymphocytes Absolute Auto 1.16 K/mm3 (0.9-3.2); Mean Corpuscular HGB Conc 32.4 g/dl (32-36); Mean Corpuscular Hemoglobin 27.6 pg (26-34); Mean Corpuscular Volume 85.1 fl (80-100); Nucleated Red Blood Cells Absolute Auto 0.000 K/mm3 (0.0-0.012); Nucleated Red Blood Cells Perc 0.0 % (0.0-0.2); Platelet Count Result 170 k/mm3 (150-375); Red Blood Count 3.23 M/mm3 (4.2-5.4); White Blood Count 18.9 K/mm3 (4.5-10.0)
[2025-09-21 06:29] LABS: Estimated CRCL calculation 9 ml/min; Estimated Glomerular Filt Rate 9
--- NOTE | 2025-09-21 07:55 | PCWOUND ---
WOCN NOTE Received referral for sacrum wound. General surgery following patient.
--- NOTE | 2025-09-21 09:37 | PC.NURSE ---
RN gave update to patient's Suhas via telephone on patient's staus.
[2025-09-21 10:04] VITALS: PULSE 69
[2025-09-21] MEDS: METOPROLOL TARTRATE 50 MG TAB PO ×2 (10:04→20:44)
[2025-09-21] MEDS: CITALOPRAM HYDROBROMIDE 20 MG TABLET PO (10:04)
[2025-09-21] MEDS: COLLAGENASE OINT 30 GM TUBE 1 APPLIC TOPICAL ×2 (10:04→20:44)
[2025-09-21] MEDS: LOSARTAN POTASSIUM 25 MG TABLET PO (10:04)
[2025-09-21] MEDS: ATORVASTATIN 40 MG TABLET 80 MG PO (10:04)
[2025-09-21] MEDS: ASPIRIN 81 MG CHEWABLE TABLET PO (10:04)
[2025-09-21] MEDS: FERROUS SULFATE 325 MG TABLET PO ×2 (10:04→16:58)
[2025-09-21] MEDS: ISOSORBIDE MONONITRATE 30 MG TAB.ER.24H PO (10:04)
--- NOTE | 2025-09-21 10:15 | P.PNGS_ITS ---
Progress Note: A&P Assessment and Plan (1) Unstageable pressure ulcer of sacral region: Code(s): L89.150 - Pressure ulcer of sacral region, unstageable Status: Acute Assessment and Plan: * Pressure ulcer appears to be stable after santyl application overnight. No obvious areas of infection. Remains superficial, with no tunneling found. Strong gangrenous odor still present. No debridement necessary at this time, as it seems the wound has not yet declared itself. Continue Q12 dressing changes with Santyl, Xeroform gauze, and ABD pad. * WBC remains elevated at 18,000. Continue IV antibiotics. (2) Type 2 diabetes mellitus with diabetic nephropathy: Code(s): E11.21 - Type 2 diabetes mellitus with diabetic nephropathy Status: Acute (3) Chronic kidney disease, stage 4 (severe): Code(s): N18.4 - Chronic kidney disease, stage 4 (severe) Status: Chronic (4) Anemia in chronic kidney disease (CKD): Code(s): N18.9 - Chronic kidney disease, unspecified; D63.1 - Anemia in chronic kidney disease Status: Acute (5) CHF (congestive heart failure): Qualifiers: Heart failure type: unspecified Heart failure chronicity: chronic Qualified Code(s): I50.9 - Heart failure, unspecified Code(s): I50.9 - Heart failure, unspecified Status: Chronic (6) Generalized weakness: Code(s): R53.1 - Weakness Status: Acute Plan Discussed patient's case and plan of care with Dr. Ruffin. Subjective Subjective Date/Time Seen: 09/21/25 10:15 Patient reports: no new complaints Interval history: Patient is doing well with no new complaints. Afebrile overnight. WBC remains elevated at 18.9. Exam Const: General: comfortable and no acute distress Back/Spine/Pelvis: Other: Sacral pressure ulcer roughly 6 in x 7 in. Dark purple/black necrotic tissue throughout entirety of wound. Wound demonstrates changes more consistent with ischemia rather than infection. No areas of fluctuance or purulence. Minimal serosanguineous drainage. Strong gangrenous odor apparent. No surrounding redness. No pain to the area. Objective Data Vital Signs Vital Signs: Vital Signs - 24 hr 09/20/25 11:17 09/20/25 11:19 09/20/25 11:21 Temperature Pulse Rate 68 91 71 Respiratory Rate 18 24 H 20 Blood Pressure 155/52 H 169/62 H Pulse Oximetry 98 98 Oxygen Delivery 09/20/25 11:22 09/20/25 11:30 09/20/25 11:32 Temperature Pulse Rate 70 78 Respiratory Rate 24 H 25 H 20 Blood Pressure 154/67 H Pulse Oximetry 97 97 Oxygen Delivery 09/20/25 11:45 09/20/25 11:47 09/20/25 12:00 Temperature Pulse Rate 78 75 71 Respiratory Rate 22 H 15 28 H Blood Pressure 143/68 H Pulse Oximetry 96 96 100 Oxygen Delivery 09/20/25 12:02 09/20/25 12:15 09/20/25 12:17 Temperature Pulse Rate 70 70 69 Respiratory Rate 24 H 22 H 23 H Blood Pressure 111/76 120/55 L Pulse Oximetry 96 94 95 Oxygen Delivery 09/20/25 12:30 09/20/25 12:32 09/20/25 12:45 Temperature Pulse Rate 71 75 99 Respiratory Rate 23 H 23 H 24 H Blood Pressure 120/56 L Pulse Oximetry 96 96 95 Oxygen Delivery 09/20/25 12:46 09/20/25 13:00 09/20/25 13:02 Temperature Pulse Rate 97 70 71 Respiratory Rate 25 H 28 H 23 H Blood Pressure 124/48 L 126/53 L Pulse Oximetry 96 95 95 Oxygen Delivery 09/20/25 13:03 09/20/25 13:15 09/20/25 13:16 Temperature Pulse Rate 98 98 99 Respiratory Rate 26 H 26 H 26 H Blood Pressure 131/66 Pulse Oximetry 95 95 95 Oxygen Delivery 09/20/25 13:30 09/20/25 13:31 09/20/25 13:45 Temperature Pulse Rate 99 78 98 Respiratory Rate 26 H 26 H 25 H Blood Pressure 129/52 L Pulse Oximetry 95 95 97 Oxygen Delivery 09/20/25 13:46 09/20/25 14:00 09/20/25 14:02 Temperature Pulse Rate 97 98 99 Respiratory Rate 19 22 H 21 H Blood Pressure 124/62 122/49 L Pulse Oximetry 97 94 95 Oxygen Delivery 09/20/25 14:03 09/20/25 14:38 09/20/25 14:39 Temperature Pulse Rate 96 Respiratory Rate 25 H Blood Pressure 116/53 L Pulse Oximetry 94 95 95 Oxygen Delivery 09/20/25 14:45 09/20/25 15:00 09/20/25 15:15 Temperature Pulse Rate Respiratory Rate Blood Pressure Pulse Oximetry 95 96 94 Oxygen Delivery 09/20/25 15:30 09/20/25 15:44 09/20/25 15:45 Temperature Pulse Rate Respiratory Rate Blood Pressure 126/45 L 126/45 L Pulse Oximetry 95 94 95 Oxygen Delivery 09/20/25 16:00 09/20/25 16:02 09/20/25 20:00 Temperature Pulse Rate Respiratory Rate Blood Pressure 128/51 L Pulse Oximetry 95 95 Oxygen Delivery Room Air 09/20/25 20:42 09/21/25 05:26 09/21/25 10:04 Temperature 97.0 F L 97.3 F L Pulse Rate 86 60 69 Respiratory Rate 18 20 Blood Pressure 122/40 L 118/40 L Pulse Oximetry 95 100 Oxygen Delivery Intake/Output Intake/Output: Intake & Output 09/18/25 09/19/25 09/20/25 09/21/25 23:59 23:59 23:59 23:59 Intake Total 1550 100 Output Total 200 375 Balance 1350 -275 Meds/Results Medications: Active Medications Generic Name Dose Route Start Last Admin Trade Name Freq PRN Reason Stop Dose Admin Aspirin 81 mg 09/21/25 09:00 09/21/25 10:04 Aspirin 81 Mg Chewable Tablet PO 81 mg DAILY JACQUI Administration Atorvastatin Calcium 80 mg 09/21/25 09:00 09/21/25 10:04 Atorvastatin 40 Mg Tablet PO 80 mg DAILY JACQUI Administration Citalopram Hydrobromide 20 mg 09/21/25 09:00 09/21/25 10:04 Citalopram Hydrobromide 20 Mg Tablet PO 20 mg DAILY JACQUI Administration Collagenase 1 applic 09/20/25 21:00 09/21/25 10:04 Collagenase Oint 30 Gm Tube TOPICAL 1 applic Q12HR JACQUI Administration Dextrose 12.5 gm 09/20/25 15:56 Dextrose 50% 25 Gm/50 Ml Syringe IV PUSH PRN PRN Hypoglycemia Protocol Ferrous Sulfate 325 mg 09/21/25 09:00 09/21/25 10:04 Ferrous Sulfate 325 Mg Tablet PO 325 mg BID JACQUI Administration Glucagon 1 mg 09/20/25 15:56 Glucagon For Inj 1 Mg Vial IM PRN PRN Hypoglycemia Protocol Glucose 15 gm 09/20/25 15:56 Glucose Oral Gel 15 Gm Of Glucse In 37.5 Gm Tube PO PRN PRN Hypoglycemia Protocol Heparin Sodium (Porcine) 5,000 units 09/20/25 22:00 09/21/25 05:34 Heparin Sodium 5,000 Units/Ml Vial SUB-Q 5,000 units Q8HR JACQUI Administration Cefepime HCl 0.5 gm/ Sodium 50 mls @ 100 mls/hr 09/21/25 15:00 Chloride IVPB Q24H JACQUI Metronidazole 500 mg in 100 mls @ 100 mls/hr 09/20/25 22:00 09/21/25 06:34 Flagyl 500 Mg/Iso Soln 100 Ml IVPB Infused Q8H JACQUI Infusion Dextrose 1,000 mls @ 100 mls/hr 09/20/25 15:56 Dextrose 5% 1,000 Ml IVPB PRN PRN Hypoglycemia Protocol Insulin Aspart 2 - 5 units 09/20/25 17:00 09/21/25 09:46 Insulin Aspart (*Bkc) 100 Units/Ml SUB-Q Not Given TIDWM JACQUI Protocol Isosorbide Mononitrate 30 mg 09/21/25 09:00 09/21/25 10:04 Isosorbide Mononitrate 30 Mg Tab.Er.24h PO 30 mg DAILY JACQUI Administration Losartan Potassium 25 mg 09/21/25 09:00 09/21/25 10:04 Losartan Potassium 25 Mg Tablet PO 25 mg DAILY JACQUI Administration Metoprolol Tartrate 50 mg 09/20/25 21:00 09/21/25 10:04 Metoprolol Tartrate 50 Mg Tab PO 50 mg Q12HR JACQUI Administration Minoxidil 5 mg 09/20/25 19:45 09/21/25 10:03 Minoxidil 2.5 Mg Tablet PO 5 mg BID JACQUI Administration Perflutren Lipid Microsphere 0 ml 09/20/25 22:08 Perflutren Lipid Microspheres 1.5 Ml Vial Diluted To 10 Ml Total Volume IV PUSH 09/23/25 22:08 ONCE PRN adequate visualization Protocol Vancomycin HCl 1 each 09/20/25 14:12 Vancomycin For Acute Kidney Injury IVPB PRN PRN Vancomycin Protocol Radiology Results: ITS Impressions Chest X-Ray 09/20/25 12:14 Impression: CHF Pelvis CT 09/20/25 14:19 IMPRESSION: 1. No significant change in 12 degrees lower lumbar levoscoliosis with severe spondylosis. 2. No evident sacral decubitus ulcer, abscess or acute intra-abdominal pelvic process. Labs Labs: Laboratory Results - last 24 hr 09/20/25 09/20/25 09/20/25 11:04 11:12 20:45 WBC 18.1 H RBC 4.31 Hgb 11.8 L Hct 36.5 L MCV 84.7 MCH 27.4 MCHC 32.3 RDW 15.0 H Plt Count 272 MPV 9.4 Immature Gran % (Auto) 0.8 H Neut % (Auto) 96.0 H Lymph % (Auto) 2.1 L [place] % (Auto) 0.6 L Eos % (Auto) 0.3 Baso % (Auto) 0.2 Lymph # (Auto) 0.38 L [place] # (Auto) 0.1 Eos # (Auto) 0.1 Baso # (Auto) 0.0 Abs Immat Gran (auto) 0.14 H Absolute Neuts (auto) 17.4 H Absolute Nucleated RBC 0.000 Nucleated RBC % 0.0 Sodium 132 L Potassium 4.8 Chloride 98 Carbon Dioxide 23 Anion Gap 11 BUN 68 H D Creatinine 5.40 H Estim Creat Clear Calc 8 Estimated GFR 8 L Glucose 138 H POC Capillary Glucose 121 H Calcium 8.9 Total Bilirubin 1.3 AST 53 H ALT 23 Alkaline Phosphatase 133 H NT-Pro-B Natriuret Pep Total Protein 7.3 Albumin 3.7 Urine Color Yellow Urine Appearance Cloudy H Urine pH 5.0 Ur Specific [place] 1.016 Urine Protein 3+ H Urine Glucose (UA) Negative Urine Ketones Negative Ur Blood (Man) 1+ H Urine Nitrate Negative Urine Bilirubin Negative Urine Urobilinogen 0.2 Add Ur Microanalysis Reviewed Leukocyte Esterase Rfl Trace H Urine RBC 0-2 Urine WBC 0-5 Ur Squamous Epith Cells None seen Urine Bacteria None seen Urine Casts 11-09/20/25 09/20/25 09/21/25 21:51 21:51 05:25 WBC 18.9 H RBC 3.23 L Hgb 8.9 L Hct 27.5 L MCV 85.1 MCH 27.6 MCHC 32.4 RDW 15.3 H Plt Count 170 MPV 9.9 Immature Gran % (Auto) 0.5 Neut % (Auto) 85.1 H Lymph % (Auto) 6.1 L [place] % (Auto) 7.5 Eos % (Auto) 0.6 Baso % (Auto) 0.2 Lymph # (Auto) 1.16 [place] # (Auto) 1.4 H Eos # (Auto) 0.1 Baso # (Auto) 0.0 Abs Immat Gran (auto) 0.10 H Absolute Neuts (auto) 16.1 H Absolute Nucleated RBC 0.000 Nucleated RBC % 0.0 Sodium 128 L Potassium 3.7 Chloride 101 Carbon Dioxide 21 L Anion Gap 6 BUN 64 H Creatinine 5.02 H 4.92 H Estim Creat Clear Calc 9 9 Estimated GFR 8 L 9 L Glucose 118 H POC Capillary Glucose Calcium 7.5 L Total Bilirubin AST ALT Alkaline Phosphatase NT-Pro-B Natriuret Pep > 73586 H Cancelled Total Protein Albumin Urine Color Urine Appearance Urine pH Ur Specific [place] Urine Protein Urine Glucose (UA) Urine Ketones Ur Blood (Man) Urine Nitrate Urine Bilirubin Urine Urobilinogen Add Ur Microanalysis Leukocyte Esterase Rfl Urine RBC Urine WBC Ur Squamous Epith Cells Urine Bacteria Urine Casts 09/21/25 07:43 WBC RBC Hgb Hct MCV MCH MCHC RDW Plt Count MPV Immature Gran % (Auto) Neut % (Auto) Lymph % (Auto) [place] % (Auto) Eos % (Auto) Baso % (Auto) Lymph # (Auto) [place] # (Auto) Eos # (Auto) Baso # (Auto) Abs Immat Gran (auto) Absolute Neuts (auto) Absolute Nucleated RBC Nucleated RBC % Sodium Potassium Chloride Carbon Dioxide Anion Gap BUN Creatinine Estim Creat Clear Calc Estimated GFR Glucose POC Capillary Glucose 93 Calcium Total Bilirubin AST ALT Alkaline Phosphatase NT-Pro-B Natriuret Pep Total Protein Albumin Urine Color Urine Appearance Urine pH Ur Specific [place] Urine Protein Urine Glucose (UA) Urine Ketones Ur Blood (Man) Urine Nitrate Urine Bilirubin Urine Urobilinogen Add Ur Microanalysis Leukocyte Esterase Rfl Urine RBC Urine WBC Ur Squamous Epith Cells Urine Bacteria Urine Casts
[2025-09-21 11:38] VITALS: BMI 33.0
--- NOTE | 2025-09-21 13:36 | P.PNIM_ITS ---
Progress Note: A&P Assessment and Plan (1) Unstageable pressure ulcer of sacral region: Code(s): L89.150 - Pressure ulcer of sacral region, unstageable Status: Acute Plan Pressure ulcer unstageable sacral area -patient a large pressure ulcer which may need debridement gangrenous odor. [id number] -appreciate general surgical consultation -antibiotics: Cefepime, Flagyl, vancomycin -persistent leukocytosis 18k -echocardiogram: EF >70%, severe concentric left ventricle hypertrophy, normal right ventricle size and function -PT and OT consulted for weakness -continue pressure relieving measures Acute kidney injury on CKD 4 Hypervolemic hyponatremia -his creatinine slightly improved from 5.4-4.92, baseline is closer to 2.3-2.9 -continue monitor renal function -with significant elevated BNP will be careful with IV fluids. With the infection will hold off on Lasix -will hold losartan -consulting Dr. Granados to help assess volume status and consideration for diuresis Chronic conditions -hyperlipidemia: Statin, aspirin, Imdur, beta-caitlyn, Arb -depression: Citalopram -iron deficiency anemia: Ferrous sulfate supplement -type 2 diabetes: Sliding scale insulin, Accu-Cheks a.c. HS, hypoglycemia protocol -essential hypertension: losartan, metoprolol, minoxidil Diet: Renal diet with supplement DVT prophylaxis: SubQ heparin Code status: Full code Disposition: SNF>2 days Time Spent With Patient Time: 35 minutes Subjective Date/time seen: 09/21/25 13:36 Interval history: Patient seen and examined. Patient broad antibiotics for the gluteal cellulitis. Will continue antibiotics cefepime, Flagyl, vancomycin. General s urgery following closely. Kidney function is still very elevated, leukocytosis persistent. Patient denies fever, chills nausea vomiting and diarrhea. She is working with physical therapy. Discussed with associate broker, who will see patient later today. Review of Systems Review of Systems: 10 point ROS complete, negative other th an what is specified in HPI. Exam Narrative: - GENERAL: Pleasant older woman in No a cute distress - EYES: EOMI. Anicteric. - HENT: Dry oral mucosa, edentulous - LUNGS: Clear to auscultation bilateral ly, no wheezing, rhonchi, or rales. - CARDIOVASCULAR: Regular rate and rhyth m. - ABDOMEN: Soft, non-tender and non-dist ended. Was not able to examine the wound - EXTREMITIES: No edema. Peripheral puls es 2+. - NEUROLOGIC: No focal neurological defi cits. CN II-XII grossly intact. - PSYCHIATRIC: Awake, Alert. Appropriate mood and affect. Objective Data Vital Signs Vital Signs: Vital Signs - 24 hr 09/20/25 13:45 09/20/25 13:46 09/20/25 14:00 Temperature Pulse Rate 98 97 98 Respiratory Rate 25 H 19 22 H Blood Pressure 124/62 Pulse Oximetry 97 97 94 Oxygen Delivery 09/20/25 14:02 09/20/25 14:03 09/20/25 14:38 Temperature Pulse Rate 99 96 Respiratory Rate 21 H 25 H Blood Pressure 122/49 L Pulse Oximetry 95 94 95 Oxygen Delivery 09/20/25 14:39 09/20/25 14:45 09/20/25 15:00 Temperature Pulse Rate Respiratory Rate Blood Pressure 116/53 L Pulse Oximetry 95 95 96 Oxygen Delivery 09/20/25 15:15 09/20/25 15:30 09/20/25 15:44 Temperature Pulse Rate Respiratory Rate Blood Pressure 126/45 L 126/45 L Pulse Oximetry 94 95 94 Oxygen Delivery 09/20/25 15:45 09/20/25 16:00 09/20/25 16:02 Temperature Pulse Rate Respiratory Rate Blood Pressure 128/51 L Pulse Oximetry 95 95 95 Oxygen Delivery 09/20/25 20:00 09/20/25 20:42 09/21/25 05:26 Temperature 36.1 C L 36.3 C L Pulse Rate 86 60 Respiratory Rate 18 20 Blood Pressure 122/40 L 118/40 L Pulse Oximetry 95 100 Oxygen Delivery Room Air 09/21/25 08:00 09/21/25 10:04 09/21/25 10:45 Temperature Pulse Rate 69 Respiratory Rate Blood Pressure Pulse Oximetry Oxygen Delivery Room Air Room Air 09/21/25 10:56 Temperature Pulse Rate Respiratory Rate Blood Pressure Pulse Oximetry Oxygen Delivery Room Air Intake/Output Intake/Output: Intake & Output 09/18/25 09/19/25 09/20/25 09/21/25 23:59 23:59 23:59 23:59 Intake Total 1550 340 Output Total 200 375 Balance 1350 -35 Meds/Results Medications: Active Medications Generic Name Dose Route Start Last Admin Trade Name Freq PRN Reason Stop Dose Admin Aspirin 81 mg 09/21/25 09:00 09/21/25 10:04 Aspirin 81 Mg Chewable Tablet PO 81 mg DAILY JACQUI Administration Atorvastatin Calcium 80 mg 09/21/25 09:00 09/21/25 10:04 Atorvastatin 40 Mg Tablet PO 80 mg DAILY JACQUI Administration Citalopram Hydrobromide 20 mg 09/21/25 09:00 09/21/25 10:04 Citalopram Hydrobromide 20 Mg Tablet PO 20 mg DAILY JACQUI Administration Collagenase 1 applic 09/20/25 21:00 09/21/25 10:04 Collagenase Oint 30 Gm Tube TOPICAL 1 applic Q12HR JACQUI Administration Dextrose 12.5 gm 09/20/25 15:56 Dextrose 50% 25 Gm/50 Ml Syringe IV PUSH PRN PRN Hypoglycemia Protocol Ferrous Sulfate 325 mg 09/21/25 09:00 09/21/25 10:04 Ferrous Sulfate 325 Mg Tablet PO 325 mg BID JACQUI Administration Glucagon 1 mg 09/20/25 15:56 Glucagon For Inj 1 Mg Vial IM PRN PRN Hypoglycemia Protocol Glucose 15 gm 09/20/25 15:56 Glucose Oral Gel 15 Gm Of Glucse In 37.5 Gm Tube PO PRN PRN Hypoglycemia Protocol Heparin Sodium (Porcine) 5,000 units 09/20/25 22:00 09/21/25 05:34 Heparin Sodium 5,000 Units/Ml Vial SUB-Q 5,000 units Q8HR JACQUI Administration Cefepime HCl 0.5 gm/ Sodium 50 mls @ 100 mls/hr 09/21/25 15:00 Chloride IVPB Q24H JACQUI Metronidazole 500 mg in 100 mls @ 100 mls/hr 09/20/25 22:00 09/21/25 06:34 Flagyl 500 Mg/Iso Soln 100 Ml IVPB Infused Q8H JACQUI Infusion Dextrose 1,000 mls @ 100 mls/hr 09/20/25 15:56 Dextrose 5% 1,000 Ml IVPB PRN PRN Hypoglycemia Protocol Insulin Aspart 2 - 5 units 09/20/25 17:00 09/21/25 12:26 Insulin Aspart (*Bkc) 100 Units/Ml SUB-Q Not Given TIDWM [facility] Protocol Isosorbide Mononitrate 30 mg 09/21/25 09:00 09/21/25 10:04 Isosorbide Mononitrate 30 Mg Tab.Er.24h PO 30 mg DAILY JACQUI Administration Losartan Potassium 25 mg 09/21/25 09:00 09/21/25 10:04 Losartan Potassium 25 Mg Tablet PO 25 mg DAILY JACQUI Administration Metoprolol Tartrate 50 mg 09/20/25 21:00 09/21/25 10:04 Metoprolol Tartrate 50 Mg Tab PO 50 mg Q12HR JACQUI Administration Minoxidil 5 mg 09/20/25 19:45 09/21/25 10:03 Minoxidil 2.5 Mg Tablet PO 5 mg BID JACQUI Administration Perflutren Lipid Microsphere 0 ml 09/20/25 22:08 Perflutren Lipid Microspheres 1.5 Ml Vial Diluted To 10 Ml Total Volume IV PUSH 09/23/25 22:08 ONCE PRN adequate visualization Protocol Vancomycin HCl 1 each 09/20/25 14:12 Vancomycin For Acute Kidney Injury IVPB PRN PRN Vancomycin Protocol Radiology Results: ITS Impressions Chest X-Ray 09/20/25 12:14 Impression: CHF Pelvis CT 09/20/25 14:19 IMPRESSION: 1. No significant change in 12 degrees lower lumbar levoscoliosis with severe spondylosis. 2. No evident sacral decubitus ulcer, abscess or acute intra-abdominal pelvic process. Labs Labs: Laboratory Results - last 24 hr 09/20/25 09/20/25 09/20/25 20:45 21:51 21:51 WBC RBC Hgb Hct MCV MCH MCHC RDW Plt Count MPV Immature Gran % (Auto) Neut % (Auto) Lymph % (Auto) [place] % (Auto) Eos % (Auto) Baso % (Auto) Lymph # (Auto) [place] # (Auto) Eos # (Auto) Baso # (Auto) Abs Immat Gran (auto) Absolute Neuts (auto) Absolute Nucleated RBC Nucleated RBC % Sodium 128 L Potassium 3.7 Chloride 101 Carbon Dioxide 21 L Anion Gap 6 BUN 64 H Creatinine 5.02 H Estim Creat Clear Calc 9 Estimated GFR 8 L Glucose 118 H POC Capillary Glucose 121 H Calcium 7.5 L NT-Pro-B Natriuret Pep > 97075 H Cancelled 09/21/25 09/21/25 09/21/25 05:25 07:43 11:24 WBC 18.9 H RBC 3.23 L Hgb 8.9 L Hct 27.5 L MCV 85.1 MCH 27.6 MCHC 32.4 RDW 15.3 H Plt Count 170 MPV 9.9 Immature Gran % (Auto) 0.5 Neut % (Auto) 85.1 H Lymph % (Auto) 6.1 L [place] % (Auto) 7.5 Eos % (Auto) 0.6 Baso % (Auto) 0.2 Lymph # (Auto) 1.16 [place] # (Auto) 1.4 H Eos # (Auto) 0.1 Baso # (Auto) 0.0 Abs Immat Gran (auto) 0.10 H Absolute Neuts (auto) 16.1 H Absolute Nucleated RBC 0.000 Nucleated RBC % 0.0 Sodium Potassium Chloride Carbon Dioxide Anion Gap BUN Creatinine 4.92 H Estim Creat Clear Calc 9 Estimated GFR 9 L Glucose POC Capillary Glucose 93 83 Calcium NT-Pro-B Natriuret Pep Hospitalist MIPS Advance Care Plan I have confirmed that the patient's Advanced Care Plan is present, code status is documented, or surrogate decision maker is listed in patient medical record.: Yes Medication Reconciliation I have utilized all available resources to obtain, update and review the patients current medications (includes all prescriptions, OTC, herbals, cannabis, and nutritional supplements).: Yes
[2025-09-21 14:00] VITALS: BP 96/41; PULSE 62; RESP 16; TEMP 36.1; O2SAT 100
[2025-09-21] MEDS: VANCOMYCIN 1,250 MG/NS 250 ML 1,250 MG/250 ML BAG 166.67 MG IVPB (16:53)
--- NOTE | 2025-09-21 17:45 | P.CONNP_ITS ---
Assessment and Plan Assessment and plan (1) Acute kidney injury: Code(s): N17.9 - Acute kidney failure, unspecified Status: Acute Assessment and Plan: * as noted on admission (creatinine 5.4mg/dl) * however, has been slowly improving since ... * suspect multifactorial etiology: * infection/sepsis (sacral deubitus ulcer and bacteremia) * prerenal factors * ARB use prior to admission * diuretic use prior to admission * other(?) * check renal ultrasound, urine studies, and CPK * BP medications with parameters * holding ARB (losartan) * follow trend of repeat labs and UOP (2) Stage 4 chronic kidney disease: Code(s): N18.4 - Chronic kidney disease, stage 4 (severe) Status: Chronic Assessment and Plan: * baseline creatinine seems to run ~ 2.3 - 2.9mg/dl in the last year * presumably due to hypertension, diabetes, vascular disease, CHF + need for diuretics, and age-related change * recently re-established care with Dr. Michael for ongoing CKD management (3) Sacral decubitus ulcer: Code(s): L89.159 - Pressure ulcer of sacral region, unspecified stage Status: Acute Assessment and Plan: * as noted on admission * unstageable * General Surgery recommendations noted: * stable * non-operative management * continue dressing changes * pressure relieving measures * on antibiotics * ongoing wound care (4) Bacteremia: Code(s): R78.81 - Bacteremia Status: Acute Assessment and Plan: * blood cultures (on 09/20) with GNR * follow repeat cultures * suspect source = #3 * Infectious Disease consulted * on antibiotics (5) Anemia: Code(s): D64.9 - Anemia, unspecified Status: Acute Assessment and Plan: * acute on chronic * likely due to R[place], CKD, and acute illness * not a candidate for IV iron given infection/bacteremia * follows with Hematology for KENISHA administration * follow trend of H/H (6) CHF (congestive heart failure): Qualifiers: Heart failure chronicity: chronic Heart failure type: unspecified Q ualified Code(s): I50.9 - Heart failure, unspecified Code(s): I50.9 - Heart failure, unspecified Status: Chronic Assessment and Plan: * known history of diastolic heart failure * however, last Echo (09/21) noted: * left ventricle is normal in size with hyperdynamic systolic function * severe concentric left ventricular hypertrophy * left ventricular ejection fraction is visually greater than 70% * right ventricle is normal in size and systolic function * trace mitral regurgitation * trace tricuspid regurgitation * no evidence of exacerbation * PRN IV diuretics for now * likely resume oral diuretics closer to discharge (7) Hypertension: Qualifiers: Hypertension type: primary hypertension Qualified Code(s): I10 - Essential (primary) hypertension Code(s): I10 - Essential (primary) hypertension Status: Chronic Assessment and Plan: * reasonable control at this time * noted some episodic relative hypotension * losartan on hold * other BP medications with parameters * wean off minoxidil if possible (8) Diabetes: Code(s): E11.9 - Type 2 diabetes mellitus without complications Status: Chronic Assessment and Plan: * follow accu-cheks * glycemic control per hospitalist I will continue to follow the patient with you while he remains hospitalized and make further recommendations as deemed necessary. Thank you for allowing me to participate in the care of this patient. L History of Present Illness Reason for Consult Consult date: 09/21/25 Reason for consult: acute renal failure (on chronic kidney disease) Chief Complaint Chief complaint: generalized weakness,sacral ulcer,roosevelt History of Present Illness Narrative: The patient is a 75-year-old female with extensive past medical history as outlined below who presented to [facility] Emergency Room due to generalized weakness. A great deal the information that I have obtained is review of the electronic medical record as well as discussion with the physician/nurses involved in the patient's care as is difficult to get a full and complete history from the patient. The patient apparently has been having increasing weakness and fatigue over the last week if not longer according to her . She has been unable to get out of her chair for the last 3 or 4 days. Apparently, at baseline, she is able to ambulate with her walker at home fairly easily. Due to her generalized weakness and fatigue and inability to ambulate, she has been sitting in a recliner sleeping mostly throughout the day but also urinating while she is in the recliner as she is unable to get up to get to the bathroom. No apparent symptoms of chest pain, shortness of breath, productive cough, fever, chills, nausea, vomiting, palpitations, lightheadedness, or dizziness. Her also noted that her oral intake had declined as well. Given these ongoing symptoms as mentioned, her called EMS and she was subsequently transported to the emergency room for further assessment Workup and evaluation emergency room demonstrated the patient be hemodynamically stable and afebrile. Routine blood tests were significant for a white blood cell count of 18.1, hemoglobin 11.8, platelet count 272, sodium 132, potassium 4.8, bicarb 23, BUN 68, creatinine 5.4, glucose 138, calcium 8.9, AST 53, ALT 23, alkaline phosphatase 133, and albumin 3.7. Her urinalysis demonstrated cloudy appearance, 3+ protein, 1+ blood, trace leukocyte esterase, but no bacteria. Her exam was significant for chronic venous stasis changes in her lower extremity and a significant sacral decubitus ulcer presumably from sitting in a recliner for a prolonged period of time. Her chest x-ray demonstrated findings consistent with congestive heart failure and subsequent CT imaging demonstrated 12? lower lumbar levoscoliosis with severe spondylosis with no evidence of sacral decubitus ulcer or abscess or intra-abdominal pelvic pathology. General surgery was consulted with regard to her sacral decubitus ulcer and after appropriate cultures were obtained, she was initiated on IV antibiotics and subsequently admitted to the hospital for further evaluation therapy. Since her admission, she has been seen by General surgery who did not feel operative intervention is required with regard to her sacral decubitus ulcer. She has been initiated on aggressive local wound care and continued IV antibiotics. Her blood cultures are now positive for Gram-negative rods and Infectious Disease has been consulted with regard to this. Renal consultation was requested due to her acute kidney injury/acute renal failure on top of her baseline chronic kidney disease. From review her records, it would seem that her baseline creatinine runs around 2.3-2.9 mg/dL in the last year. She had been following with Dr. Michael for ongoing management of her chronic kidney disease in the past but was lost to follow-up but then recent in the reestablish care with regard to this issue in late May of this year. The suspected etiology of her chronic kidney disease is thought to be secondary to her hypertension, diabetes, vascular disease, diastolic heart failure and need for diuretics, along with age-related change. Interestingly, since her admission, her renal function has been slowly improving but there is some concern that her volume status is fluctuating and may need diuretic intervention which is complicated by her acute kidney injury/acute renal failure. Currently, at the time my evaluation, she appears to be in no acute distress. Review of Systems 2 Review of Systems: As per HPI. [facility] Past Medical History Medical History Hypertension Chronic venous stasis History of diabetes mellitus CVA (cerebral vascular accident) SDH (subdural hematoma) Aortic stenosis s/p TAVR Chronic kidney disease, stage 4 (severe) Hypertensive chronic kidney disease with stage 1 through stage 4 chronic kidney disease, or unspecified chronic kidney disease Mixed hyperlipidemia Surgical History Surgical History History of cataract extraction OD 10/2024, OS 11/2024 S/P TAVR (transcatheter aortic valve replacement) Ganglion cyst s/p excision from left wrist Family History Family History Father Family history of coronary artery disease Diabetes mellitus Social History Social History Social History: She is and lives with her . She has no children. 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 She denies any alcohol or illicit drugs. Her is a durable power contact lens fitter for healthcare. Code status full code Smoking packs per day: 2 Smoking cigarettes per day: 40.0 Years smoked: 25 Smoking pack-years: 50.00 Smoking status: Former smoker Tobacco type: cigarettes Second hand tobacco smoke exposure: Yes Smoking end date: 11/11/94 Alcohol intake: never Substance use: never Substance use type: does not use Lack of Transportation: YES Lack of Food: Never True Current Housing: I Have Housing Concerned About Future Housing: No Difficulty Paying Gas/Electric Bills: No Difficulty Paying for Meds: No Currently Unemployed: No Education: High School Diploma/GED Difficulty w/ Childcare or Family Care: No Living arrangements: alone Occupation/Education: retired Gender identity (if verbalized by the patient): Female Spiritual care concerns: No Meds Home Medications and Allergies Home Medications ?Medication ?Instructions ?Recorded ?Confirmed ?Type Calcium 600 + D(3) 600 mg PO DAILY 10/13/2109/04 History aspirin 81 mg tablet 81 mg PO DAILY 10/13/2109/11 History citalopram 20 mg tablet 20 mg PO DAILY #90 tabs 01/0909/20/25 Rx metoprolol tartrate 50 mg tablet 50 mg PO BID #180 tab s 01/21/25 09/20/25 Rx epoetin colin 20,000 unit/mL 20,000 unit subcut .q4week s 03/25/25 09/20/25 History injection solution (Procrit) mecobalamin (vitamin B12) 2,500 2,500 mcg PO DAILY 09/20/25 History mcg chewable tablet isosorbide mononitrate 30 mg 30 mg PO DAILY #90 tabs 0 04/22/25 09/20/25 Rx tablet,extended release 24 hr minoxidil 2.5 mg tablet 5 mg PO BID 06/08/25 5 History ferrous sulfate 325 mg (65 mg 325 mg PO BID #180 tabs 06/16/25 09/20/25 Rx iron) tablet losartan 25 mg tablet 25 mg PO DAILY #30 tabs 06/1109/20/25 Rx atorvastatin 80 mg tablet (Lipitor) 80 mg PO DAILY #90 tabs 07/19/25 09/20/25 Rx furosemide 40 mg tablet 20 mg (1/2 x 40 mg) PO DAILY #45 08/26/25 09/20/25 Rx tabs Allergies Allergy/AdvReac Type Severity Reaction Status Date / Time No Known Allergies Allergy Verified 09/20/25 17:26 Vital Signs Vital Signs Temp Pulse Resp BP Pulse Ox O2 Del Method 09/21/25 14:00 97 F L 62 16 96/41 L 100 09/21/25 10:56 Room Air 09/21/25 10:45 Room Air 09/21/25 10:04 69 09/21/25 08:00 Room Air 09/21/25 05:26 97.3 F L 60 20 118/40 L 100 09/20/25 20:42 97.0 F L 86 18 122/40 L 95 09/20/25 20:00 Room Air Exam 2 Narrative: GENERAL APPEARANCE: elderly but well developed well nourished female in no acute distress HEENT: normocephalic, atraumatic, normal conjunctiva and sclera, nares patient NECK: no lymphadenopathy, thyromegaly, or JVD MOUTH: normal lips, teeth, and gums CARDIOVASCULAR: RRR, normal S1 and S2, no rub RESPIRATORY: clear to auscultation bilaterally ABDOMEN: soft, nontender, nondistended, positive bowel sounds present EXTREMITIES: no evidence of cyanosis, clubbing, trace - 1+ edema NEUROLOGICAL: awake and alert but no focal deficits noted Results Lab Results 09/27/25 05:28 09/27/25 05:28 Lab results: Most recent lab results Calcium 7.5 mg/dL (8.4-10.2) L 09/20/25 21:51
[2025-09-21] MEDS: CEFEPIME IVPB (18:40)
[2025-09-21] MEDS: [UNRECOGNIZED DRUG - OTHER] IVPB (18:40)
[2025-09-21 20:46] VITALS: BP 122/44; PULSE 66; RESP 22; TEMP 37.1; O2SAT 97
[2025-09-22] VITALS (7 sets, daily range): BP systolic 102–112; BP diastolic 35–54; PULSE 60–93; RESP 17–18; TEMP 36.7–36.8; O2SAT 97–98
[2025-09-22] MEDS: metroNIDAZOLE 500 MG/ISO 100ML 500 MG/100 ML BAG 100 MG IVPB ×3 (05:12→21:13)
[2025-09-22 05:37] LABS: Hematocrit 23.8 % (37.0-47.0); Hemoglobin 7.8 g/dL (12.0-15.0); Immature Granulocyte Percent A 0.8 % (0-0.5); Lymphocytes Absolute Auto 0.97 K/mm3 (0.9-3.2); Mean Corpuscular HGB Conc 32.8 g/dl (32-36); Mean Corpuscular Hemoglobin 28.1 pg (26-34); Mean Corpuscular Volume 85.6 fl (80-100); Nucleated Red Blood Cells Absolute Auto 0.000 K/mm3 (0.0-0.012); Nucleated Red Blood Cells Perc 0.0 % (0.0-0.2); Platelet Count Result 160 k/mm3 (150-375); Red Blood Count 2.78 M/mm3 (4.2-5.4); White Blood Count 14.1 K/mm3 (4.5-10.0)
[2025-09-22 05:53] LABS: Anion Gap 6 mmol/L (4-12); Blood Urea Nitrogen 67 mg/dL (7-17); Calcium 7.1 mg/dL (8.4-10.2); Carbon Dioxide 20 mmol/L (22-30); Chloride 104 mmol/L (98-107); Estimated CRCL calculation 9 ml/min; Estimated Glomerular Filt Rate 9; Glucose 111 mg/dL (65-110); Magnesium 2.3 mg/dL (1.6-2.3); Potassium 3.4 mmol/L (3.4-5.0); Sodium 130 mmol/L (137-145)
[2025-09-22 08:13] LABS: Creatine Kinase 370 U/L (30-135)
[2025-09-22] MEDS: ATORVASTATIN 40 MG TABLET 80 MG PO (09:51)
[2025-09-22] MEDS: ISOSORBIDE MONONITRATE 30 MG TAB.ER.24H PO (09:52)
[2025-09-22] MEDS: FERROUS SULFATE 325 MG TABLET PO ×2 (09:52→16:24)
[2025-09-22] MEDS: ASPIRIN 81 MG CHEWABLE TABLET PO (09:52)
[2025-09-22] MEDS: METOPROLOL TARTRATE 50 MG TAB PO ×2 (09:52→20:40)
[2025-09-22] MEDS: CITALOPRAM HYDROBROMIDE 20 MG TABLET PO (09:52)
[2025-09-22] MEDS: COLLAGENASE OINT 30 GM TUBE 1 APPLIC TOPICAL ×2 (09:53→21:00)
--- NOTE | 2025-09-22 10:02 | P.CDI_ITS ---
<Statement entered by Ho Beal DO - 09/22/25 11:26> This documentation has been reviewed and approved. CDI Query Clarification Request BMI: 33.2 Nutritional Diagnostic Statement: Please refer to the comprehensive nutrition assessment for further information. If you agree with diagnosis of Severe protein calorie malnutrition related to chronic inadequate intake in the setting of pressure injury, as evidenced by weight loss 15%/5 months; intakes <75% needs >1 month; unstageable pressure injury. Please specify severity if known: * Mild * Moderate * Severe * Other/Unknown <Celia Thurston, RN - Last Filed: 09/22/25 10:03> Clarified Diagnosis Clarified Diagnosis: agree with severe protien calorie malnutrition <Ho Beal DO - Last Filed: 09/22/25 11:26>
--- NOTE | 2025-09-22 11:28 | PCOTNOTE ---
Patient eating at this time. Will try back.
--- NOTE | 2025-09-22 12:03 | WPDIDCN ---
Assessment and Plan Assessment and plan (1) Deep tissue injury: Code(s): T14.8XXA - Other injury of unspecified body region, initial encounter Status: Acute (2) Unstageable pressure ulcer of sacral region: Code(s): L89.150 - Pressure ulcer of sacral region, unstageable Status: Acute (3) Gram-negative bacteremia: Code(s): R78.81 - Bacteremia Status: Acute Plan Impression: 1. Gram-negative bloodstream infection from admission of 09/20. 2 g negatives suspected including growth in the anaerobic bottle. -- Based on workup to date, suspect necrotic sacral wound as source. -- potential for occult GI complication as source. CT of pelvis did not comment on GI tract. 2. Necrotic sacral pressure ulcer, unstageable, and although CT scan did not identified extensive ulcer or any abscess formation with still consider this the source of polymicrobial Gram-negative bacteremia. Plan: -- patient is currently receiving cefepime and metronidazole And vancomycin and white blood cell count has been improving over time. will continue with both cefepime and metronidazole pending further blood culture information. Discontinue vancomycin. -- will order repeat blood cultures. -- surgery following although no debridement is planned at this time. -- may require colonoscopy in the future. HPI Data of Consult Date/Time: 09/22/25 12:03 Requesting Physician: Virginia Frederick MD Primary Care Provider: Sabino Moore MD Consult Narrative Reason for consult: Gram-negative bacteremia Narrative: Amelie Menjivar is a 75 year old female with past medical history significant for hypertension, chronic kidney disease, aortic stenosis status post TAVR, CVA, and subdural hematoma post fall. Presented to the ED 09/20 with family reporting increased weakness and anorexia of current over the last week and inability to arise from chair over the last 3 days. Also with urinary incontinence. Afebrile white blood cell count on presentation was 18.1. Creatinine had increased since prior studies up to 5.4. Urinalysis was unremarkable and chest x-ray suggested CHF rather than pneumonia. She was noted to have a necrotic and foul smelling but unstageable sacral Wound. Pelvic CT did not attribute ulcer to this unstageable wound nor did they identify sub wound abscess formation. Admission blood cultures from 09/20 now reported as positive for 2 types of g negatives including growth in an anaerobic bottle. She is currently receiving cefepime and metronidazole And vancomycin with white blood cell count decreased to 14.1. Review of Systems Review of Systems: All systems reviewed & are unremarkable except as noted in HPI and below [facility] Past Medical History Medical History Hypertension Chronic venous stasis History of diabetes mellitus CVA (cerebral vascular accident) SDH (subdural hematoma) Aortic stenosis s/p TAVR Chronic kidney disease, stage 4 (severe) Hypertensive chronic kidney disease with stage 1 through stage 4 chronic kidney disease, or unspecified chronic kidney disease Mixed hyperlipidemia Surgical History Surgical History History of cataract extraction OD 10/2024, OS 11/2024 S/P TAVR (transcatheter aortic valve replacement) Ganglion cyst s/p excision from left wrist Family History Family History Father Family history of coronary artery disease Diabetes mellitus Social History Social History Social History: She is and lives with her . She has no children. 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 She denies any alcohol or illicit drugs. Her is a durable power estate planning attorney for healthcare. Code status full code Smoking packs per day: 2 Smoking cigarettes per day: 40.0 Years smoked: 25 Smoking pack-years: 50.00 Smoking status: Former smoker Tobacco type: cigarettes Second hand tobacco smoke exposure: Yes Smoking end date: 11/11/94 Alcohol intake: never Substance use: never Substance use type: does not use Lack of Transportation: YES Lack of Food: Never True Current Housing: I Have Housing Concerned About Future Housing: No Difficulty Paying Gas/Electric Bills: No Difficulty Paying for Meds: No Currently Unemployed: No Education: High School Diploma/GED Difficulty w/ Childcare or Family Care: No Living arrangements: alone Occupation/Education: retired Gender identity (if verbalized by the patient): Female Spiritual care concerns: No Meds Home Medications and Allergies Home Medications ?Medication ?Instructions ?Recorded ?Confirmed ?Type Calcium 600 + D(3) 600 mg PO DAILY 10/13/21 09/20/25 History aspirin 81 mg tablet 81 mg PO DAILY 10/13/21 09/20/25 History citalopram 20 mg tablet 20 mg PO DAILY #90 tabs 01/20/25 09/20/25 Rx metoprolol tartrate 50 mg tablet 50 mg PO BID #180 tabs 01/21/25 09/20/25 Rx epoetin colin 20,000 unit/mL 20,000 unit subcut .[id number] 03/25/25 09/20/25 History injection solution (Procrit) mecobalamin (vitamin B12) 2,500 2,500 mcg PO DAILY 03/25/25 09/20/25 History mcg chewable tablet isosorbide mononitrate 30 mg 30 mg PO DAILY #90 tabs 04/22/25 09/20/25 Rx tablet,extended release 24 hr minoxidil 2.5 mg tablet 5 mg PO BID 06/08/25 09/20/25 History ferrous sulfate 325 mg (65 mg 325 mg PO BID #180 tabs 06/16/25 09/20/25 Rx iron) tablet losartan 25 mg tablet 25 mg PO DAILY #30 tabs 06/28/25 09/20/25 Rx atorvastatin 80 mg tablet (Lipitor) 80 mg PO DAILY #90 tabs 07/19/25 09/20/25 Rx furosemide 40 mg tablet 20 mg (1/2 x 40 mg) PO DAILY #45 08/26/25 09/20/25 Rx tabs Allergies Allergy/AdvReac Type Severity Reaction Status Date / Time No Known Allergies Allergy Verified 09/20/25 17:26 Vital Signs Vital Signs - 24 hr 09/21/25 14:00 09/21/25 20:00 09/21/25 20:46 Temperature 97 F L 98.7 F Pulse Rate 62 66 Respiratory Rate 16 22 H Blood Pressure 96/41 L 122/44 L Pulse Oximetry 100 97 Oxygen Delivery Room Air 09/22/25 05:29 09/22/25 08:00 09/22/25 09:52 Temperature 98.0 F Pulse Rate 60 60 Respiratory Rate 18 Blood Pressure 112/35 L Pulse Oximetry 98 Oxygen Delivery Room Air Exam Narrative: Patient is awake, alert, interactive, and nontoxic. Some cognitive limitations. No respiratory difficulty. No significant abdominal distension and without tenderness. Denies diarrhea. Petit catheter in place. Peripheral IV sites unremarkable. No rash. Sacral wound photos observed. Necrotic sacral pressure wound present which is unstageable. Results Labs 09/22/25 04:52 09/22/25 04:52 Labs: Short CBC 09/22/25 Range/Units 04:52 WBC 14.1 H (4.5-10.0) K/mm3 Hgb 7.8 L (12.0-15.0) g/dL Hct 23.8 L (37.0-47.0) % Plt Count 160 (150-375) k/mm3 [place] 09/22/25 04:52 Sodium 130 L Potassium 3.4 Chloride 104 Carbon Dioxide 20 L BUN 67 H Creatinine 4.65 H Glucose 111 H Calcium 7.1 L Cardiac Enzymes 09/22/25 Range/Units 04:52 Total Creatine Kinase 370 H (30-135) U/L
--- NOTE | 2025-09-22 12:16 | P.PNGS_ITS ---
Progress Note: A&P Assessment and Plan (1) Unstageable pressure ulcer of sacral region: Code(s): L89.150 - Pressure ulcer of sacral region, unstageable Status: Acute Assessment and Plan: leukocytosis improved, continue local wound care and antibiotics Subjective Subjective Date/Time Seen: 09/22/25 12:16 Interval history: seems to be a little more alert today, denies any complaints Review of Systems Review of Systems: All systems reviewed & are unremarkable except as noted in HPI and below Exam Const: General: cooperative, comfortable and no acute distress Resp: Auscultation: diminished lung sounds Cardio: Rate: regular rate Rhythm: regular rhythm GI: Inspection: normal to inspection Back/Spine/Pelvis: Other: sacral wound unchanged, foul-smelling odor, no obvious drainage Objective Data Vital Signs Vital Signs: Vital Signs - 24 hr 09/21/25 14:00 09/21/25 20:00 09/21/25 20:46 Temperature 36.1 C L 37.1 C Pulse Rate 62 66 Respiratory Rate 16 22 H Blood Pressure 96/41 L 122/44 L Pulse Oximetry 100 97 Oxygen Delivery Room Air 09/22/25 05:29 09/22/25 08:00 09/22/25 09:52 Temperature 36.7 C Pulse Rate 60 60 Respiratory Rate 18 Blood Pressure 112/35 L Pulse Oximetry 98 Oxygen Delivery Room Air Intake/Output Intake/Output: Intake & Output 09/19/25 09/20/25 09/21/25 09/22/25 23:59 23:59 23:59 23:59 Intake Total 1550 1215 758 Output Total 200 525 400 Balance 1350 742 358 Meds/Results Medications: Active Medications Generic Name Dose Route Start Last Admin Trade Name Freq PRN Reason Stop Dose Admin Aspirin 81 mg 09/21/25 09:00 09/22/25 09:52 Aspirin 81 Mg Chewable Tablet PO 81 mg DAILY JACQUI Administration Atorvastatin Calcium 80 mg 09/21/25 09:00 09/22/25 09:51 Atorvastatin 40 Mg Tablet PO 80 mg DAILY JACQUI Administration Citalopram Hydrobromide 20 mg 09/21/25 09:00 09/22/25 09:52 Citalopram Hydrobromide 20 Mg Tablet PO 20 mg DAILY JACQUI Administration Collagenase 1 applic 09/20/25 21:00 09/22/25 09:53 Collagenase Oint 30 Gm Tube TOPICAL 1 applic Q12HR JACQUI Administration Dextrose 12.5 gm 09/20/25 15:56 Dextrose 50% 25 Gm/50 Ml Syringe IV PUSH PRN PRN Hypoglycemia Protocol Ferrous Sulfate 325 mg 09/21/25 09:00 09/22/25 09:52 Ferrous Sulfate 325 Mg Tablet PO 325 mg BID JACQUI Administration Glucagon 1 mg 09/20/25 15:56 Glucagon For Inj 1 Mg Vial IM PRN PRN Hypoglycemia Protocol Glucose 15 gm 09/20/25 15:56 Glucose Oral Gel 15 Gm Of Glucse In 37.5 Gm Tube PO PRN PRN Hypoglycemia Protocol Heparin Sodium (Porcine) 5,000 units 09/20/25 22:00 09/22/25 05:12 Heparin Sodium 5,000 Units/Ml Vial SUB-Q 5,000 units Q8HR JACQUI Administration Metronidazole 500 mg in 100 mls @ 100 mls/hr 09/20/25 22:00 09/22/25 06:12 Flagyl 500 Mg/Iso Soln 100 Ml IVPB Infused Q8H JACQUI Infusion Dextrose 1,000 mls @ 100 mls/hr 09/20/25 15:56 Dextrose 5% 1,000 Ml IVPB PRN PRN Hypoglycemia Protocol Cefepime HCl 500 mg in 50 mls @ 100 mls/hr 09/21/25 17:00 09/21/25 19:10 Maxipime 500 Mg/Ns 50 Ml IVPB Infused Q24H JACQUI Infusion Insulin Aspart 2 - 5 units 09/20/25 17:00 09/22/25 11:46 Insulin Aspart (*Bkc) 100 Units/Ml SUB-Q Not Given TIDWM JACQUI Protocol Isosorbide Mononitrate 30 mg 09/21/25 09:00 09/22/25 09:52 Isosorbide Mononitrate 30 Mg Tab.Er.24h PO 30 mg DAILY JACQUI Administration Metoprolol Tartrate 50 mg 09/20/25 21:00 09/22/25 09:52 Metoprolol Tartrate 50 Mg Tab PO 50 mg Q12HR JACQUI Administration Minoxidil 5 mg 09/20/25 19:45 09/22/25 09:52 Minoxidil 2.5 Mg Tablet PO 5 mg BID JACQUI Administration Perflutren Lipid Microsphere 0 ml 09/20/25 22:08 Perflutren Lipid Microspheres 1.5 Ml Vial Diluted To 10 Ml Total Volume IV PUSH 09/23/25 22:08 ONCE PRN adequate visualization Protocol Radiology Results: ITS Impressions Chest X-Ray 09/20/25 12:14 Impression: CHF Pelvis CT 09/20/25 14:19 IMPRESSION: 1. No significant change in 12 degrees lower lumbar levoscoliosis with severe spondylosis. 2. No evident sacral decubitus ulcer, abscess or acute intra-abdominal pelvic process. Labs Labs: Laboratory Results - last 24 hr 09/21/25 09/21/25 09/21/25 13:49 16:51 20:41 WBC RBC Hgb Hct MCV MCH MCHC RDW Plt Count MPV Immature Gran % (Auto) Neut % (Auto) Lymph % (Auto) [place] % (Auto) Eos % (Auto) Baso % (Auto) Lymph # (Auto) [place] # (Auto) Eos # (Auto) Baso # (Auto) Abs Immat Gran (auto) Absolute Neuts (auto) Absolute Nucleated RBC Nucleated RBC % Sodium Potassium Chloride Carbon Dioxide Anion Gap BUN Creatinine Estim Creat Clear Calc Estimated GFR Glucose POC Capillary Glucose 129 H 175 H Calcium Magnesium Total Creatine Kinase Random Vancomycin 12.4 09/22/25 09/22/25 09/22/25 04:52 07:42 11:17 WBC 14.1 H RBC 2.78 L Hgb 7.8 L Hct 23.8 L MCV 85.6 MCH 28.1 MCHC 32.8 RDW 15.4 H Plt Count 160 MPV 10.4 Immature Gran % (Auto) 0.8 H Neut % (Auto) 83.6 H Lymph % (Auto) 6.9 L [place] % (Auto) 7.9 Eos % (Auto) 0.7 Baso % (Auto) 0.1 L Lymph # (Auto) 0.97 [place] # (Auto) 1.1 H Eos # (Auto) 0.1 Baso # (Auto) 0.0 Abs Immat Gran (auto) 0.12 H Absolute Neuts (auto) 11.8 H Absolute Nucleated RBC 0.000 Nucleated RBC % 0.0 Sodium 130 L Potassium 3.4 Chloride 104 Carbon Dioxide 20 L Anion Gap 6 BUN 67 H Creatinine 4.65 H Estim Creat Clear Calc 9 Estimated GFR 9 L Glucose 111 H POC Capillary Glucose 121 H 167 H Calcium 7.1 L Magnesium 2.3 Total Creatine Kinase 370 H Random Vancomycin
--- NOTE | 2025-09-22 13:09 | P.PNNP_ITS ---
Progress Note: A&P Assessment and Plan (1) Acute kidney injury: Code(s): N17.9 - Acute kidney failure, unspecified Status: Acute Assessment and Plan: * as noted on admission (creatinine 5.4mg/dl) * however, has been slowly improving since ... * suspect multifactorial etiology: * infection/sepsis (sacral deubitus ulcer and bacteremia) * prerenal factors * ARB use prior to admission * diuretic use prior to admission * other(?) * follow-up on pending renal ultrasound and urine studies * follow trend of repeat labs and UOP (2) Stage 4 chronic kidney disease: Code(s): N18.4 - Chronic kidney disease, stage 4 (severe) Status: Chronic Assessment and Plan: * baseline creatinine seems to run ~ 2.3 - 2.9mg/dl in the last year * presumably due to hypertension, diabetes, vascular disease, CHF + need for diuretics, and age-related change * recently re-established care with Dr. Michael for ongoing CKD management (3) Sacral decubitus ulcer: Code(s): L89.159 - Pressure ulcer of sacral region, unspecified stage Status: Acute Assessment and Plan: * as noted on admission * unstageable * General Surgery recommendations noted: * stable * non-operative management * continue dressing changes * pressure relieving measures * on antibiotics * ongoing wound care (4) Bacteremia: Code(s): R78.81 - Bacteremia Status: Acute Assessment and Plan: * blood cultures (on 09/20) with GNR * follow repeat cultures * suspect source = #3 * Infectious Disease following * on antibiotics (5) Anemia: Code(s): D64.9 - Anemia, unspecified Status: Acute Assessment and Plan: * acute on chronic * likely due to [place], CKD, and acute illness * not a candidate for IV iron given infection/bacteremia * follows with Hematology for KENISHA administration * follow trend of H/H (6) CHF (congestive heart failure): Qualifiers: Heart failure chronicity: chronic Heart failure type: unspecified Q ualified Code(s): I50.9 - Heart failure, unspecified Code(s): I50.9 - Heart failure, unspecified Status: Chronic Assessment and Plan: * known history of diastolic heart failure * however, last Echo (09/21) noted: * left ventricle is normal in size with hyperdynamic systolic function * severe concentric left ventricular hypertrophy * left ventricular ejection fraction is visually greater than 70% * right ventricle is normal in size and systolic function * trace mitral regurgitation * trace tricuspid regurgitation * no evidence of exacerbation * PRN IV diuretics for now * likely resume oral diuretics closer to discharge (7) Hypertension: Qualifiers: Hypertension type: primary hypertension Qualified Code(s): I10 - Essential (primary) hypertension Code(s): I10 - Essential (primary) hypertension Status: Chronic Assessment and Plan: * reasonable control at this time * noted some episodic relative hypotension * losartan on hold * other BP medications with parameters * wean off minoxidil if possible (8) Diabetes: Code(s): E11.9 - Type 2 diabetes mellitus without complications Status: Chronic Assessment and Plan: * follow accu-cheks * glycemic control per hospitalist Will continue to follow. L Subjective Date/time seen: 09/22/25 13:09 Interval history: Follow-up for acute kidney injury/acute renal failure on chronic kidney disease. No apparent distress noted at the time of my visit; renal function/creatinine slightly better by trend of labs; blood culture results noted and Infectious Disease now seeing patient; no other acute complaints voiced; no issues/events overnight or earlier this morning. Exam 2 Narrative: General: elderly but WD/WN female in NAD Heart: normal S1 and S2; no rub Lungs: clear anteriorly Abdomen: soft, nontender, nondistended, positive bowel sounds Extremities: no cyanosis or clubbing; trace edema Skin: warm and dry; buttocks wound present (unable to examine). Objective Data Vital Signs Vital Signs: Vital Signs Temp Pulse Resp BP Pulse Ox O2 Del Method 09/22/25 12:00 98.1 F 93 18 107/47 L 98 09/22/25 09:52 60 09/22/25 08:00 Room Air 09/22/25 05:29 98.0 F 60 18 112/35 L 98 09/21/25 20:46 98.7 F 66 22 H 122/44 L 97 09/21/25 20:00 Room Air Intake/Output Intake/Output: Intake & Output 09/19/25 09/20/25 09/21/25 09/22/25 23:59 23:59 23:59 23:59 Intake Total 1550 1215 1098 Output Total 200 525 400 Balance 1350 690 698 Meds/Results Medications: Active Medications Generic Name Dose Route Start Last Admin Trade Name Freq PRN Reason Stop Dose Admin Aspirin 81 mg 09/21/25 09:00 09/22/25 09:52 Aspirin 81 Mg Chewable Tablet PO 81 mg DAILY JACQUI Administration Atorvastatin Calcium 80 mg 09/21/25 09:00 09/22/25 09:51 Atorvastatin 40 Mg Tablet PO 80 mg DAILY JACQUI Administration Citalopram Hydrobromide 20 mg 09/21/25 09:00 09/22/25 09:52 Citalopram Hydrobromide 20 Mg Tablet PO 20 mg DAILY JACQUI Administration Collagenase 1 applic 09/20/25 21:00 09/22/25 09:53 Collagenase Oint 30 Gm Tube TOPICAL 1 applic Q12HR JACQUI Administration Dextrose 12.5 gm 09/20/25 15:56 Dextrose 50% 25 Gm/50 Ml Syringe IV PUSH PRN PRN Hypoglycemia Protocol Ferrous Sulfate 325 mg 09/21/25 09:00 09/22/25 16:24 Ferrous Sulfate 325 Mg Tablet PO 325 mg BID JACUQI Administration Glucagon 1 mg 09/20/25 15:56 Glucagon For Inj 1 Mg Vial IM PRN PRN Hypoglycemia Protocol Glucose 15 gm 09/20/25 15:56 Glucose Oral Gel 15 Gm Of Glucse In 37.5 Gm Tube PO PRN PRN Hypoglycemia Protocol Heparin Sodium (Porcine) 5,000 units 09/20/25 22:00 09/22/25 14:48 Heparin Sodium 5,000 Units/Ml Vial SUB-Q 5,000 units Q8HR JACQUI Administration Metronidazole 500 mg in 100 mls @ 100 mls/hr 09/20/25 22:00 09/22/25 15:48 Flagyl 500 Mg/Iso Soln 100 Ml IVPB Infused Q8H JACQUI Infusion Dextrose 1,000 mls @ 100 mls/hr 09/20/25 15:56 Dextrose 5% 1,000 Ml IVPB PRN PRN Hypoglycemia Protocol Cefepime HCl 500 mg in 50 mls @ 100 mls/hr 09/21/25 17:00 09/22/25 16:24 Maxipime 500 Mg/Ns 50 Ml IVPB 100 mls/hr Q24H JACQUI Administration Insulin Aspart 2 - 5 units 09/20/25 17:00 09/22/25 11:46 Insulin Aspart (*Bkc) 100 Units/Ml SUB-Q Not Given TIDWM JACQUI Protocol Isosorbide Mononitrate 30 mg 09/21/25 09:00 09/22/25 09:52 Isosorbide Mononitrate 30 Mg Tab.Er.24h PO 30 mg DAILY JACQUI Administration Metoprolol Tartrate 50 mg 09/20/25 21:00 09/22/25 09:52 Metoprolol Tartrate 50 Mg Tab PO 50 mg Q12HR JACQUI Administration Minoxidil 5 mg 09/20/25 19:45 09/22/25 16:24 Minoxidil 2.5 Mg Tablet PO 5 mg BID JACQUI Administration Perflutren Lipid Microsphere 0 ml 09/20/25 22:08 Perflutren Lipid Microspheres 1.5 Ml Vial Diluted To 10 Ml Total Volume IV PUSH 09/23/25 22:08 ONCE PRN adequate visualization Protocol Radiology Results: ITS Impressions Chest X-Ray 09/20/25 12:14 Impression: CHF Pelvis CT 09/20/25 14:19 IMPRESSION: 1. No significant change in 12 degrees lower lumbar levoscoliosis with severe spondylosis. 2. No evident sacral decubitus ulcer, abscess or acute intra-abdominal pelvic process. Renal Ultrasound 09/22/25 14:25 IMPRESSION: 1. 7 mm calcification at the mid right kidney which could represent a nonobstructing renal stone or atherosclerotic calcification. No hydronephrosis at either kidney. Labs Labs: Laboratory Tests 09/22/25 13:14 09/22/25 04:52 Calcium 7.1 L Magnesium 2.3 Total Creatine Kinase 370 H Microbiology 09/20/25 11:12 Blood Blood Culture - Preliminary 09/20/25 14:52 Blood Blood Culture - Preliminary
--- NOTE | 2025-09-22 13:12 | P.PNIM_ITS ---
Progress Note: A&P Assessment and Plan (1) Acute kidney injury superimposed on CKD: Code(s): N17.9 - Acute kidney failure, unspecified; N18.9 - Chronic kidney disease, unspecified Status: Acute (2) Gram-negative bacteremia: Code(s): R78.81 - Bacteremia Status: Acute (3) Decubitus ulcer of sacral area: Code(s): L89.159 - Pressure ulcer of sacral region, unspecified stage Status: Acute Plan Pressure ulcer unstageable sacral area GNR bacteremia -patient a large pressure ulcer which may need debridement gangrenous odor. [id number] -appreciate general surgical consultation: non-operative management -antibiotics: Cefepime, Flagyl, discontinue vancomycin -improvement of leukocytosis 18k->14k -consulting ID for the GNR in anaerobic blood cultures: Discontinue vancomycin, continue flagyl and cefepime -echocardiogram: EF >70%, severe concentric left ventricle hypertrophy, normal right ventricle size and function -PT and OT consulted for weakness -continue pressure relieving measures -blood cultures positive for GNR in aerobic and anaerobic bottles Acute kidney injury on CKD 4 Hypervolemic hyponatremia -his creatinine slightly improved from 5.4-4.92->4.65, baseline is closer to 2.3-2.9 -continue monitor renal function -with significant elevated BNP will be careful with IV fluids. With the infection will hold off on Lasix - hold losartan -consulted nephrology Dr. Granados to help assess volume status and consideration for diuresis Chronic conditions -hyperlipidemia: Statin, aspirin, Imdur, beta-caitlyn, Arb -depression: Citalopram -iron deficiency anemia: Ferrous sulfate supplement -type 2 diabetes: Sliding scale insulin, Accu-Cheks a.c. HS, hypoglycemia protocol -essential hypertension: losartan, metoprolol, minoxidil Diet: Renal diet with supplement DVT prophylaxis: SubQ heparin Code status: Full code Disposition: SNF>2 days Time Spent With Patient Time: 35 minutes Subjective Date/time seen: 09/22/25 13:12 Interval history: Patient seen examined. Blood cultures are growing Gram-negative rods in aerobic and anaerobic bottles. Consult ID for complex infection. Creatinine still is elevated at 4.65. Hemoglobin dropped to 7.8, will recheck this afternoon, patient is asymptomatic. She denies fever, chills, nausea vomiting diarrhea. Review of Systems Review of Systems: 10 point ROS complete, negative other th an what is specified in HPI. Exam Narrative: - GENERAL: Pleasant older woman in No a cute distress - EYES: EOMI. Anicteric. - HENT: moist oral mucosa, edentulous - LUNGS: Clear to auscultation bilateral ly, no wheezing, rhonchi, or rales. - CARDIOVASCULAR: Regular rate and rhyth m. - ABDOMEN: Soft, non-tender and non-dist ended. Was not able to examine the wound on her buttock - EXTREMITIES: No edema. Peripheral puls es 2+. - NEUROLOGIC: No focal neurological defi cits. CN II-XII grossly intact. - PSYCHIATRIC: Awake, Alert. Appropriate mood and flat affect. Objective Data Vital Signs Vital Signs: Vital Signs - 24 hr 09/21/25 14:00 09/21/25 20:00 09/21/25 20:46 Temperature 36.1 C L 37.1 C Pulse Rate 62 66 Respiratory Rate 16 22 H Blood Pressure 96/41 L 122/44 L Pulse Oximetry 100 97 Oxygen Delivery Room Air 09/22/25 05:29 09/22/25 08:00 09/22/25 09:52 Temperature 36.7 C Pulse Rate 60 60 Respiratory Rate 18 Blood Pressure 112/35 L Pulse Oximetry 98 Oxygen Delivery Room Air Intake/Output Intake/Output: Intake & Output 09/19/25 09/20/25 09/21/25 09/22/25 23:59 23:59 23:59 23:59 Intake Total 1550 1215 758 Output Total 200 525 400 Balance 1350 690 358 Meds/Results Medications: Active Medications Generic Name Dose Route Start Last Admin Trade Name Freq PRN Reason Stop Dose Admin Aspirin 81 mg 09/21/25 09:00 09/22/25 09:52 Aspirin 81 Mg Chewable Tablet PO 81 mg DAILY JACQUI Administration Atorvastatin Calcium 80 mg 09/21/25 09:00 09/22/25 09:51 Atorvastatin 40 Mg Tablet PO 80 mg DAILY JACQUI Administration Citalopram Hydrobromide 20 mg 09/21/25 09:00 09/22/25 09:52 Citalopram Hydrobromide 20 Mg Tablet PO 20 mg DAILY JACQUI Administration Collagenase 1 applic 09/20/25 21:00 09/22/25 09:53 Collagenase Oint 30 Gm Tube TOPICAL 1 applic Q12HR JACQUI Administration Dextrose 12.5 gm 09/20/25 15:56 Dextrose 50% 25 Gm/50 Ml Syringe IV PUSH PRN PRN Hypoglycemia Protocol Ferrous Sulfate 325 mg 09/21/25 09:00 09/22/25 09:52 Ferrous Sulfate 325 Mg Tablet PO 325 mg BID JACQUI Administration Glucagon 1 mg 09/20/25 15:56 Glucagon For Inj 1 Mg Vial IM PRN PRN Hypoglycemia Protocol Glucose 15 gm 09/20/25 15:56 Glucose Oral Gel 15 Gm Of Glucse In 37.5 Gm Tube PO PRN PRN Hypoglycemia Protocol Heparin Sodium (Porcine) 5,000 units 09/20/25 22:00 09/22/25 05:12 Heparin Sodium 5,000 Units/Ml Vial SUB-Q 5,000 units Q8HR JACQUI Administration Metronidazole 500 mg in 100 mls @ 100 mls/hr 09/20/25 22:00 09/22/25 06:12 Flagyl 500 Mg/Iso Soln 100 Ml IVPB Infused Q8H JACQUI Infusion Dextrose 1,000 mls @ 100 mls/hr 09/20/25 15:56 Dextrose 5% 1,000 Ml IVPB PRN PRN Hypoglycemia Protocol Cefepime HCl 500 mg in 50 mls @ 100 mls/hr 09/21/25 17:00 09/21/25 19:10 Maxipime 500 Mg/Ns 50 Ml IVPB Infused Q24H JACQUI Infusion Insulin Aspart 2 - 5 units 09/20/25 17:00 09/22/25 11:46 Insulin Aspart (*Bkc) 100 Units/Ml SUB-Q Not Given TIDWM JACQUI Protocol Isosorbide Mononitrate 30 mg 09/21/25 09:00 09/22/25 09:52 Isosorbide Mononitrate 30 Mg Tab.Er.24h PO 30 mg DAILY JACQUI Administration Metoprolol Tartrate 50 mg 09/20/25 21:00 09/22/25 09:52 Metoprolol Tartrate 50 Mg Tab PO 50 mg Q12HR JACQUI Administration Minoxidil 5 mg 09/20/25 19:45 09/22/25 09:52 Minoxidil 2.5 Mg Tablet PO 5 mg BID JACQUI Administration Perflutren Lipid Microsphere 0 ml 09/20/25 22:08 Perflutren Lipid Microspheres 1.5 Ml Vial Diluted To 10 Ml Total Volume IV PUSH 09/23/25 22:08 ONCE PRN adequate visualization Protocol Radiology Results: ITS Impressions Chest X-Ray 09/20/25 12:14 Impression: CHF Pelvis CT 09/20/25 14:19 IMPRESSION: 1. No significant change in 12 degrees lower lumbar levoscoliosis with severe spondylosis. 2. No evident sacral decubitus ulcer, abscess or acute intra-abdominal pelvic process. Labs Labs: Laboratory Results - last 24 hr 09/21/25 09/21/25 09/21/25 13:49 16:51 20:41 WBC RBC Hgb Hct MCV MCH MCHC RDW Plt Count MPV Immature Gran % (Auto) Neut % (Auto) Lymph % (Auto) [place] % (Auto) Eos % (Auto) Baso % (Auto) Lymph # (Auto) [place] # (Auto) Eos # (Auto) Baso # (Auto) Abs Immat Gran (auto) Absolute Neuts (auto) Absolute Nucleated RBC Nucleated RBC % Sodium Potassium Chloride Carbon Dioxide Anion Gap BUN Creatinine Estim Creat Clear Calc Estimated GFR Glucose POC Capillary Glucose 129 H 175 H Calcium Magnesium Total Creatine Kinase Random Vancomycin 12.4 09/22/25 09/22/25 09/22/25 04:52 07:42 11:17 WBC 14.1 H RBC 2.78 L Hgb 7.8 L Hct 23.8 L MCV 85.6 MCH 28.1 MCHC 32.8 RDW 15.4 H Plt Count 160 MPV 10.4 Immature Gran % (Auto) 0.8 H Neut % (Auto) 83.6 H Lymph % (Auto) 6.9 L [place] % (Auto) 7.9 Eos % (Auto) 0.7 Baso % (Auto) 0.1 L Lymph # (Auto) 0.97 [place] # (Auto) 1.1 H Eos # (Auto) 0.1 Baso # (Auto) 0.0 Abs Immat Gran (auto) 0.12 H Absolute Neuts (auto) 11.8 H Absolute Nucleated RBC 0.000 Nucleated RBC % 0.0 Sodium 130 L Potassium 3.4 Chloride 104 Carbon Dioxide 20 L Anion Gap 6 BUN 67 H Creatinine 4.65 H Estim Creat Clear Calc 9 Estimated GFR 9 L Glucose 111 H POC Capillary Glucose 121 H 167 H Calcium 7.1 L Magnesium 2.3 Total Creatine Kinase 370 H Random Vancomycin
[2025-09-22 13:29] LABS: Hematocrit 24.5 % (37.0-47.0); Hemoglobin 8.0 g/dL (12.0-15.0); Mean Corpuscular HGB Conc 32.7 g/dl (32-36); Mean Corpuscular Hemoglobin 27.7 pg (26-34); Mean Corpuscular Volume 84.8 fl (80-100); Platelet Count Result 176 k/mm3 (150-375); Red Blood Count 2.89 M/mm3 (4.2-5.4); White Blood Count 14.2 K/mm3 (4.5-10.0)
--- NOTE | 2025-09-22 13:29 | PCOTNOTE ---
Patient out of the room, down for testing, not available for therapy services.
[2025-09-22] MEDS: CEFEPIME IVPB (16:24)
[2025-09-22] MEDS: [UNRECOGNIZED DRUG - OTHER] IVPB (16:24)
[2025-09-22 23:00] LABS: Total Protein Urine Random 141 mg/dL; Ur Ttl Prot Creatinine Ratio 0.96 mg/mg (0-0.20)
[2025-09-22 23:02] LABS: Urine Eos QC 2nd Tech Confirmed
[2025-09-22 23:08] LABS: Urea Random Urine 507 MG/DL
[2025-09-23 05:36] LABS: Hematocrit 24.3 % (37.0-47.0); Hemoglobin 7.8 g/dL (12.0-15.0); Immature Granulocyte Percent A 0.9 % (0-0.5); Lymphocytes Absolute Auto 1.04 K/mm3 (0.9-3.2); Mean Corpuscular HGB Conc 32.1 g/dl (32-36); Mean Corpuscular Hemoglobin 27.4 pg (26-34); Mean Corpuscular Volume 85.3 fl (80-100); Nucleated Red Blood Cells Absolute Auto 0.000 K/mm3 (0.0-0.012); Nucleated Red Blood Cells Perc 0.0 % (0.0-0.2); Platelet Count Result 160 k/mm3 (150-375); Red Blood Count 2.85 M/mm3 (4.2-5.4); White Blood Count 12.4 K/mm3 (4.5-10.0)
[2025-09-23 05:46] LABS: Anion Gap 5 mmol/L (4-12); Blood Urea Nitrogen 72 mg/dL (7-17); Calcium 7.3 mg/dL (8.4-10.2); Carbon Dioxide 21 mmol/L (22-30); Chloride 104 mmol/L (98-107); Estimated CRCL calculation 10 ml/min; Estimated Glomerular Filt Rate 10; Glucose 112 mg/dL (65-110); Magnesium 2.2 mg/dL (1.6-2.3); Potassium 3.4 mmol/L (3.4-5.0); Sodium 130 mmol/L (137-145)
[2025-09-23 06:00] VITALS: BP 110/50; PULSE 64; RESP 17; TEMP 36.7; O2SAT 98
[2025-09-23] MEDS: metroNIDAZOLE 500 MG/ISO 100ML 500 MG/100 ML BAG 100 MG IVPB (06:06)
[2025-09-23] MEDS: ATORVASTATIN 40 MG TABLET 80 MG PO (08:27)
[2025-09-23] MEDS: ASPIRIN 81 MG CHEWABLE TABLET PO (08:28)
[2025-09-23 08:29] VITALS: PULSE 62
[2025-09-23] MEDS: METOPROLOL TARTRATE 50 MG TAB PO ×2 (08:29→22:45)
[2025-09-23] MEDS: CITALOPRAM HYDROBROMIDE 20 MG TABLET PO (08:30)
[2025-09-23] MEDS: FERROUS SULFATE 325 MG TABLET PO ×2 (08:31→16:59)
[2025-09-23] MEDS: ISOSORBIDE MONONITRATE 30 MG TAB.ER.24H PO (08:31)
[2025-09-23] MEDS: COLLAGENASE OINT 30 GM TUBE 1 APPLIC TOPICAL ×2 (08:32→22:44)
[2025-09-23] MEDS: BUMETANIDE INJ 1 MG/4 ML VIAL IV PUSH (08:36)
--- NOTE | 2025-09-23 09:35 | P.PNGS_ITS ---
Progress Note: A&P Assessment and Plan (1) Unstageable pressure ulcer of sacral region: Code(s): L89.150 - Pressure ulcer of sacral region, unstageable Status: Acute Assessment and Plan: * WBC count continues to improve. Wound appears stable. * Continue local wound care and antibiotics, frequent turning * No indication for surgical intervention at this time. Will sign off. Call with any surgical questions/concerns. Plan I have discussed the patient's case and plan of care with Dr. Ruffin. Subjective Subjective Date/Time Seen: 09/23/25 09:35 Patient reports: afebrile Interval history: No acute changes overnight. Patient being set up for placement, SNF/rehab. Exam Narrative: Sacral dressing dry and intact. Const: General: comfortable and no acute distress Objective Data Vital Signs Vital Signs: Vital Signs - 24 hr 09/22/25 09:52 09/22/25 14:00 09/22/25 18:24 Temperature 98.1 F Pulse Rate 60 93 Respiratory Rate 18 Blood Pressure 107/47 L Pulse Oximetry 98 97 Oxygen Delivery Room Air 09/22/25 20:00 09/22/25 20:32 09/22/25 20:40 Temperature 98.2 F Pulse Rate 72 93 72 Respiratory Rate 17 17 Blood Pressure 102/54 L Pulse Oximetry 98 98 Oxygen Delivery Room Air 09/23/25 06:00 09/23/25 08:29 Temperature 98.1 F Pulse Rate 64 62 Respiratory Rate 17 Blood Pressure 110/50 L Pulse Oximetry 98 Oxygen Delivery Intake/Output Intake/Output: Intake & Output 09/20/25 09/21/25 09/22/25 09/23/25 23:59 23:59 23:59 23:59 Intake Total 1550 1215 1438 418 Output Total 200 525 750 425 Balance 1350 690 688 -7 Meds/Results Medications: Active Medications Generic Name Dose Route Start Last Admin Trade Name Freq PRN Reason Stop Dose Admin Aspirin 81 mg 09/21/25 09:00 09/23/25 08:28 Aspirin 81 Mg Chewable Tablet PO 81 mg DAILY JACQUI Administration Atorvastatin Calcium 80 mg 09/21/25 09:00 09/23/25 08:27 Atorvastatin 40 Mg Tablet PO 80 mg DAILY JACQUI Administration Citalopram Hydrobromide 20 mg 09/21/25 09:00 09/23/25 08:30 Citalopram Hydrobromide 20 Mg Tablet PO 20 mg DAILY JACQUI Administration Collagenase 1 applic 09/20/25 21:00 09/23/25 08:32 Collagenase Oint 30 Gm Tube TOPICAL 1 applic Q12HR JACQUI Administration Dextrose 12.5 gm 09/20/25 15:56 Dextrose 50% 25 Gm/50 Ml Syringe IV PUSH PRN PRN Hypoglycemia Protocol Ferrous Sulfate 325 mg 09/21/25 09:00 09/23/25 08:31 Ferrous Sulfate 325 Mg Tablet PO 325 mg BID JACQUI Administration Glucagon 1 mg 09/20/25 15:56 Glucagon For Inj 1 Mg Vial IM PRN PRN Hypoglycemia Protocol Glucose 15 gm 09/20/25 15:56 Glucose Oral Gel 15 Gm Of Glucse In 37.5 Gm Tube PO PRN PRN Hypoglycemia Protocol Heparin Sodium (Porcine) 5,000 units 09/20/25 22:00 09/23/25 06:05 Heparin Sodium 5,000 Units/Ml Vial SUB-Q 5,000 units Q8HR JACQUI Administration Metronidazole 500 mg in 100 mls @ 100 mls/hr 09/20/25 22:00 09/23/25 07:06 Flagyl 500 Mg/Iso Soln 100 Ml IVPB Infused Q8H JACQUI Infusion Dextrose 1,000 mls @ 100 mls/hr 09/20/25 15:56 Dextrose 5% 1,000 Ml IVPB PRN PRN Hypoglycemia Protocol Cefepime HCl 500 mg in 50 mls @ 100 mls/hr 09/21/25 17:00 09/22/25 16:24 Maxipime 500 Mg/Ns 50 Ml IVPB 100 mls/hr Q24H JACQUI Administration Insulin Aspart 2 - 5 units 09/20/25 17:00 09/23/25 08:26 Insulin Aspart (*Bkc) 100 Units/Ml SUB-Q Not Given TIDWM JACQUI Protocol Isosorbide Mononitrate 30 mg 09/21/25 09:00 09/23/25 08:31 Isosorbide Mononitrate 30 Mg Tab.Er.24h PO 30 mg DAILY JACQUI Administration Metoprolol Tartrate 50 mg 09/20/25 21:00 09/23/25 08:29 Metoprolol Tartrate 50 Mg Tab PO 50 mg Q12HR JACQUI Administration Minoxidil 5 mg 09/20/25 19:45 09/23/25 08:28 Minoxidil 2.5 Mg Tablet PO 5 mg BID JACQUI Administration Perflutren Lipid Microsphere 0 ml 09/20/25 22:08 Perflutren Lipid Microspheres 1.5 Ml Vial Diluted To 10 Ml Total Volume IV PUSH 09/23/25 22:08 ONCE PRN adequate visualization Protocol Radiology Results: ITS Impressions Chest X-Ray 09/20/25 12:14 Impression: CHF Pelvis CT 09/20/25 14:19 IMPRESSION: 1. No significant change in 12 degrees lower lumbar levoscoliosis with severe spondylosis. 2. No evident sacral decubitus ulcer, abscess or acute intra-abdominal pelvic process. Renal Ultrasound 09/22/25 14:25 IMPRESSION: 1. 7 mm calcification at the mid right kidney which could represent a nonobstructing renal stone or atherosclerotic calcification. No hydronephrosis at either kidney. Labs Labs: Laboratory Results - last 24 hr 09/22/25 09/22/25 09/22/25 11:17 13:14 16:40 WBC 14.2 H RBC 2.89 L Hgb 8.0 L Hct 24.5 L MCV 84.8 MCH 27.7 MCHC 32.7 RDW 15.5 H Plt Count 176 MPV 10.2 Immature Gran % (Auto) Neut % (Auto) Lymph % (Auto) [place] % (Auto) Eos % (Auto) Baso % (Auto) Lymph # (Auto) [place] # (Auto) Eos # (Auto) Baso # (Auto) Abs Immat Gran (auto) Absolute Neuts (auto) Absolute Nucleated RBC Nucleated RBC % Sodium Potassium Chloride Carbon Dioxide Anion Gap BUN Creatinine Estim Creat Clear Calc Estimated GFR Glucose POC Capillary Glucose 167 H 145 H Calcium Magnesium Urine Eosinophils U Random Total Protein Ur Random Sodium Ur Random Urea Urine Creatinine Protein/Creat Ratio 2 09/22/25 09/22/25 09/23/25 20:48 21:01 05:15 WBC 12.4 H RBC 2.85 L Hgb 7.8 L Hct 24.3 L MCV 85.3 MCH 27.4 MCHC 32.1 RDW 15.4 H Plt Count 160 MPV 9.9 Immature Gran % (Auto) 0.9 H Neut % (Auto) 81.7 H Lymph % (Auto) 8.4 L [place] % (Auto) 7.6 Eos % (Auto) 1.2 Baso % (Auto) 0.2 Lymph # (Auto) 1.04 [place] # (Auto) 0.9 H Eos # (Auto) 0.2 Baso # (Auto) 0.0 Abs Immat Gran (auto) 0.11 H Absolute Neuts (auto) 10.1 H Absolute Nucleated RBC 0.000 Nucleated RBC % 0.0 Sodium 130 L Potassium 3.4 Chloride 104 Carbon Dioxide 21 L Anion Gap 5 BUN 72 H Creatinine 4.43 H Estim Creat Clear Calc 10 Estimated GFR 10 L Glucose 112 H POC Capillary Glucose 162 H Calcium 7.3 L Magnesium 2.2 Urine Eosinophils None seen U Random Total Protein 141 Ur Random Sodium 16 Ur Random Urea 507 Urine Creatinine 147.2 Protein/Creat Ratio 2 0.96 H 09/23/25 07:39 WBC RBC Hgb Hct MCV MCH MCHC RDW Plt Count MPV Immature Gran % (Auto) Neut % (Auto) Lymph % (Auto) [place] % (Auto) Eos % (Auto) Baso % (Auto) Lymph # (Auto) [place] # (Auto) Eos # (Auto) Baso # (Auto) Abs Immat Gran (auto) Absolute Neuts (auto) Absolute Nucleated RBC Nucleated RBC % Sodium Potassium Chloride Carbon Dioxide Anion Gap BUN Creatinine Estim Creat Clear Calc Estimated GFR Glucose POC Capillary Glucose 111 H Calcium Magnesium Urine Eosinophils U Random Total Protein Ur Random Sodium Ur Random Urea Urine Creatinine Protein/Creat Ratio 2
--- NOTE | 2025-09-23 10:08 | PM.IMPN ---
Progress Note: A&P Assessment and Plan (1) Chronic kidney disease, stage 4 (severe): Code(s): N18.4 - Chronic kidney disease, stage 4 (severe) Status: Chronic (2) Unstageable pressure ulcer of sacral region: Code(s): L89.150 - Pressure ulcer of sacral region, unstageable Status: Acute Plan Pressure ulcer unstageable sacral area Proteus bacteremia -patient a large pressure ulcer which may need debridement gangrenous odor. [id number] -appreciate general surgical consultation: non-operative management with antibiotics -antibiotics: Cefepime, Flagyl -improvement of leukocytosis 18k->14k->12k -consulted ID for the GNR in anaerobic blood cultures: Discontinue vancomycin, continue flagyl and cefepime -echocardiogram: EF >70%, severe concentric left ventricle hypertrophy, normal right ventricle size and function -PT and OT consulted for weakness -continue pressure relieving measures -blood cultures positive for GNR in aerobic and anaerobic bottles Acute kidney injury on CKD 4 Hypervolemic hyponatremia -his creatinine slightly improved from 5.4-4.92->4.65->4.43, baseline is closer to 2.3-2.9 -continue monitor renal function -with significant elevated BNP will be careful with IV fluids. With the infection will hold off Lasix -hold losartan -consulted nephrology Dr. Granados to help assess volume status and consideration for diuresis -sodium 130 Chronic conditions -hyperlipidemia: Statin, aspirin, Imdur, beta-caitlyn, Arb -depression: Citalopram -iron deficiency anemia: Ferrous sulfate supplement, hemoglobin 7.8, appears to be stable -type 2 diabetes: Sliding scale insulin, Accu-Cheks a.c. HS, hypoglycemia protocol -essential hypertension: losartan, metoprolol, minoxidil Diet: Renal diet with supplement DVT prophylaxis: SubQ heparin Code status: Full code Disposition: SNF>2 days Time Spent With Patient Time: 35 minutes Subjective Date/time seen: 09/23/25 10:08 Interval history: Patient seen examined. She is doing well no new complaints. Patient has fever, chills, nausea vomiting, diarrhea. Blood cultures growing Proteus. Creatinine still elevated 4.43. WBC 12k. Will continue supportive care and non operative management with antibiotics. Review of Systems Review of Systems: 10 point ROS complete, negative other than what is specified in HPI. Exam Narrative: - GENERAL: Pleasant older woman in No acute distress - EYES: EOMI. Anicteric. - HENT: moist oral mucosa, edentulous - LUNGS: Clear to auscultation bilaterally - CARDIOVASCULAR: Regular rate and rhythm. - ABDOMEN: Soft, non-tender and non-distended. Was not able to examine the wound on her buttock - EXTREMITIES: Peripheral pulses 2+. - NEUROLOGIC: No focal neurological deficits. CN II-XII grossly intact. - PSYCHIATRIC: Awake, Alert. Appropriate mood and flat affect. Objective Data Vital Signs Vital Signs: Vital Signs - 24 hr 09/22/25 14:00 09/22/25 18:24 09/22/25 20:00 Temperature 36.7 C Pulse Rate 93 72 Respiratory Rate 18 17 Blood Pressure 107/47 L Pulse Oximetry 98 97 98 Oxygen Delivery Room Air Room Air 09/22/25 20:32 09/22/25 20:40 09/23/25 06:00 Temperature 36.8 C 36.7 C Pulse Rate 93 72 64 Respiratory Rate 17 17 Blood Pressure 102/54 L 110/50 L Pulse Oximetry 98 98 Oxygen Delivery 09/23/25 08:29 Temperature Pulse Rate 62 Respiratory Rate Blood Pressure Pulse Oximetry Oxygen Delivery Intake/Output Intake/Output: Intake & Output 09/20/25 09/21/25 09/22/25 09/23/25 23:59 23:59 23:59 23:59 Intake Total 1550 1215 1438 418 Output Total 200 525 750 425 Balance 1350 690 688 -7 Meds/Results Medications: Active Medications Generic Name Dose Route Start Last Admin Trade Name Darwinq PRN Reason Stop Dose Admin Aspirin 81 mg 09/21/25 09:00 09/23/25 08:28 Aspirin 81 Mg Chewable Tablet PO 81 mg DAILY JACQUI Administration Atorvastatin Calcium 80 mg 09/21/25 09:00 09/23/25 08:27 Atorvastatin 40 Mg Tablet PO 80 mg DAILY JACQUI Administration Citalopram Hydrobromide 20 mg 09/21/25 09:00 09/23/25 08:30 Citalopram Hydrobromide 20 Mg Tablet PO 20 mg DAILY JACQUI Administration Collagenase 1 applic 09/20/25 21:00 09/23/25 08:32 Collagenase Oint 30 Gm Tube TOPICAL 1 applic Q12HR JACQUI Administration Dextrose 12.5 gm 09/20/25 15:56 Dextrose 50% 25 Gm/50 Ml Syringe IV PUSH PRN PRN Hypoglycemia Protocol Ferrous Sulfate 325 mg 09/21/25 09:00 09/23/25 08:31 Ferrous Sulfate 325 Mg Tablet PO 325 mg BID JACQUI Administration Glucagon 1 mg 09/20/25 15:56 Glucagon For Inj 1 Mg Vial IM PRN PRN Hypoglycemia Protocol Glucose 15 gm 09/20/25 15:56 Glucose Oral Gel 15 Gm Of Glucse In 37.5 Gm Tube PO PRN PRN Hypoglycemia Protocol Heparin Sodium (Porcine) 5,000 units 09/20/25 22:00 09/23/25 06:05 Heparin Sodium 5,000 Units/Ml Vial SUB-Q 5,000 units Q8HR JACQUI Administration Metronidazole 500 mg in 100 mls @ 100 mls/hr 09/20/25 22:00 09/23/25 07:06 Flagyl 500 Mg/Iso Soln 100 Ml IVPB Infused Q8H JACQUI Infusion Dextrose 1,000 mls @ 100 mls/hr 09/20/25 15:56 Dextrose 5% 1,000 Ml IVPB PRN PRN Hypoglycemia Protocol Cefepime HCl 500 mg in 50 mls @ 100 mls/hr 09/21/25 17:00 09/22/25 16:24 Maxipime 500 Mg/Ns 50 Ml IVPB 100 mls/hr Q24H JACQUI Administration Insulin Aspart 2 - 5 units 09/20/25 17:00 09/23/25 08:26 Insulin Aspart (*Bkc) 100 Units/Ml SUB-Q Not Given TIDWM JACQUI Protocol Isosorbide Mononitrate 30 mg 09/21/25 09:00 09/23/25 08:31 Isosorbide Mononitrate 30 Mg Tab.Er.24h PO 30 mg DAILY JACQUI Administration Metoprolol Tartrate 50 mg 09/20/25 21:00 09/23/25 08:29 Metoprolol Tartrate 50 Mg Tab PO 50 mg Q12HR JACQUI Administration Minoxidil 5 mg 09/20/25 19:45 09/23/25 08:28 Minoxidil 2.5 Mg Tablet PO 5 mg BID JACQUI Administration Perflutren Lipid Microsphere 0 ml 09/20/25 22:08 Perflutren Lipid Microspheres 1.5 Ml Vial Diluted To 10 Ml Total Volume IV PUSH 09/23/25 22:08 ONCE PRN adequate visualization Protocol Radiology Results: ITS Impressions Chest X-Ray 09/20/25 12:14 Impression: CHF Pelvis CT 09/20/25 14:19 IMPRESSION: 1. No significant change in 12 degrees lower lumbar levoscoliosis with severe spondylosis. 2. No evident sacral decubitus ulcer, abscess or acute intra-abdominal pelvic process. Renal Ultrasound 09/22/25 14:25 IMPRESSION: 1. 7 mm calcification at the mid right kidney which could represent a nonobstructing renal stone or atherosclerotic calcification. No hydronephrosis at either kidney. Labs Labs: Laboratory Results - last 24 hr 09/22/25 09/22/25 09/22/25 11:17 13:14 16:40 WBC 14.2 H RBC 2.89 L Hgb 8.0 L Hct 24.5 L MCV 84.8 MCH 27.7 MCHC 32.7 RDW 15.5 H Plt Count 176 MPV 10.2 Immature Gran % (Auto) Neut % (Auto) Lymph % (Auto) [place] % (Auto) Eos % (Auto) Baso % (Auto) Lymph # (Auto) [place] # (Auto) Eos # (Auto) Baso # (Auto) Abs Immat Gran (auto) Absolute Neuts (auto) Absolute Nucleated RBC Nucleated RBC % Sodium Potassium Chloride Carbon Dioxide Anion Gap BUN Creatinine Estim Creat Clear Calc Estimated GFR Glucose POC Capillary Glucose 167 H 145 H Calcium Magnesium Urine Eosinophils U Random Total Protein Ur Random Sodium Ur Random Urea Urine Creatinine Protein/Creat Ratio 2 09/22/25 09/22/25 09/23/25 20:48 21:01 05:15 WBC 12.4 H RBC 2.85 L Hgb 7.8 L Hct 24.3 L MCV 85.3 MCH 27.4 MCHC 32.1 RDW 15.4 H Plt Count 160 MPV 9.9 Immature Gran % (Auto) 0.9 H Neut % (Auto) 81.7 H Lymph % (Auto) 8.4 L [place] % (Auto) 7.6 Eos % (Auto) 1.2 Baso % (Auto) 0.2 Lymph # (Auto) 1.04 [place] # (Auto) 0.9 H Eos # (Auto) 0.2 Baso # (Auto) 0.0 Abs Immat Gran (auto) 0.11 H Absolute Neuts (auto) 10.1 H Absolute Nucleated RBC 0.000 Nucleated RBC % 0.0 Sodium 130 L Potassium 3.4 Chloride 104 Carbon Dioxide 21 L Anion Gap 5 BUN 72 H Creatinine 4.43 H Estim Creat Clear Calc 10 Estimated GFR 10 L Glucose 112 H POC Capillary Glucose 162 H Calcium 7.3 L Magnesium 2.2 Urine Eosinophils None seen U Random Total Protein 141 Ur Random Sodium 16 Ur Random Urea 507 Urine Creatinine 147.2 Protein/Creat Ratio 2 0.96 H 09/23/25 07:39 WBC RBC Hgb Hct MCV MCH MCHC RDW Plt Count MPV Immature Gran % (Auto) Neut % (Auto) Lymph % (Auto) [place] % (Auto) Eos % (Auto) Baso % (Auto) Lymph # (Auto) [place] # (Auto) Eos # (Auto) Baso # (Auto) Abs Immat Gran (auto) Absolute Neuts (auto) Absolute Nucleated RBC Nucleated RBC % Sodium Potassium Chloride Carbon Dioxide Anion Gap BUN Creatinine Estim Creat Clear Calc Estimated GFR Glucose POC Capillary Glucose 111 H Calcium Magnesium Urine Eosinophils U Random Total Protein Ur Random Sodium Ur Random Urea Urine Creatinine Protein/Creat Ratio 2
--- NOTE | 2025-09-23 10:12 | P.PNINF_ITS ---
Progress Note: A&P Assessment and Plan (1) Deep tissue injury: Code(s): T14.8XXA - Other injury of unspecified body region, initial encounter Status: Acute (2) Unstageable pressure ulcer of sacral region: Code(s): L89.150 - Pressure ulcer of sacral region, unstageable Status: Acute (3) Gram-negative bacteremia: Code(s): R78.81 - Bacteremia Status: Acute (4) Acute kidney injury superimposed on CKD: Code(s): N17.9 - Acute kidney failure, unspecified; N18.9 - Chronic kidney disease, unspecified Status: Acute Plan Impression: 1. Gram-negative bloodstream infection from admission of 09/20. Three of 4 bottles positive with 2 identified to date as Proteus. -- Based on workup to date, suspect necrotic sacral wound as source. -- potential for occult GI complication as source. CT of pelvis did not comment on GI tract. -- urinalysis not consistent with UTI. 2. Necrotic sacral pressure ulcer, unstageable, and although CT scan did not identified extensive ulcer or any abscess formation with still consider this the source of polymicrobial Gram-negative bacteremia. 3. Acute on chronic kidney disease. Plan: -- White blood cell count continues to improve. Based on presence of Proteus and sensitivities will discontinue metronidazole and change cefepime to ceftriaxone. -- follow repeat 09/22 blood cultures. If again positive would consider LUZ MARIA. -- assuming negative 09/22 blood cultures anticipate continuing coverage for Proteus bacteremia through 10/02. -- surgery following although no debridement is planned at this time. -- may require colonoscopy in the future. -- discussed with family at bedside. Subjective Date/time seen: 09/23/25 10:12 Interval history: 09/23/2025: Afebrile. Somewhat soft blood pressure but otherwise vital signs stable. White blood cell count decreased to 12.4. Creatinine 4.43 down from 5.40 on admission. Renal ultrasound with 7 mm calcification at the mid right kidney which could represent a nonobstructing renal stone. No hydronephrosis. TTE 09/22 without mention of vegetation. Blood cultures 09/22: Pending. Blood culture 09/20: Gram-negative rods in 3/4 bottles with 2 of the 3 identified as relatively mcdonough-sensitive Proteus. Review of Systems Review of Systems: All systems reviewed & are unremarkable except as noted in HPI and below Exam Narrative: Patient is awake, alert, interactive, and nontoxic. No respiratory difficulty. No significant abdominal distension and without tenderness. Denies diarrhea. Petit catheter in place. Peripheral IV sites unremarkable. No rash. Sacral wound photos observed. Necrotic sacral pressure wound present which is unstageable. Objective Data Vital Signs Vital Signs: Vital Signs - 24 hr 09/22/25 14:00 09/22/25 18:24 09/22/25 20:00 Temperature 98.1 F Pulse Rate 93 72 Respiratory Rate 18 17 Blood Pressure 107/47 L Pulse Oximetry 98 97 98 Oxygen Delivery Room Air Room Air 09/22/25 20:32 09/22/25 20:40 09/23/25 06:00 Temperature 98.2 F 98.1 F Pulse Rate 93 72 64 Respiratory Rate 17 17 Blood Pressure 102/54 L 110/50 L Pulse Oximetry 98 98 Oxygen Delivery 09/23/25 08:29 Temperature Pulse Rate 62 Respiratory Rate Blood Pressure Pulse Oximetry Oxygen Delivery Intake/Output Intake/Output: Intake & Output 09/20/25 09/21/25 09/22/25 09/23/25 23:59 23:59 23:59 23:59 Intake Total 1550 1215 1438 418 Output Total 200 525 750 425 Balance 1350 690 688 -7 Meds/Results Medications: Active Medications Generic Name Dose Route Start Last Admin Trade Name Freq PRN Reason Stop Dose Admin Aspirin 81 mg 09/21/25 09:00 09/23/25 08:28 Aspirin 81 Mg Chewable Tablet PO 81 mg DAILY JACQUI Administration Atorvastatin Calcium 80 mg 09/21/25 09:00 09/23/25 08:27 Atorvastatin 40 Mg Tablet PO 80 mg DAILY JACQUI Administration Citalopram Hydrobromide 20 mg 09/21/25 09:00 09/23/25 08:30 Citalopram Hydrobromide 20 Mg Tablet PO 20 mg DAILY JACQUI Administration Collagenase 1 applic 09/20/25 21:00 09/23/25 08:32 Collagenase Oint 30 Gm Tube TOPICAL 1 applic Q12HR JACQUI Administration Dextrose 12.5 gm 09/20/25 15:56 Dextrose 50% 25 Gm/50 Ml Syringe IV PUSH PRN PRN Hypoglycemia Protocol Ferrous Sulfate 325 mg 09/21/25 09:00 09/23/25 08:31 Ferrous Sulfate 325 Mg Tablet PO 325 mg BID JACQUI Administration Glucagon 1 mg 09/20/25 15:56 Glucagon For Inj 1 Mg Vial IM PRN PRN Hypoglycemia Protocol Glucose 15 gm 09/20/25 15:56 Glucose Oral Gel 15 Gm Of Glucse In 37.5 Gm Tube PO PRN PRN Hypoglycemia Protocol Heparin Sodium (Porcine) 5,000 units 09/20/25 22:00 09/23/25 06:05 Heparin Sodium 5,000 Units/Ml Vial SUB-Q 5,000 units Q8HR JACQUI Administration Metronidazole 500 mg in 100 mls @ 100 mls/hr 09/20/25 22:00 09/23/25 07:06 Flagyl 500 Mg/Iso Soln 100 Ml IVPB Infused Q8H JACQUI Infusion Dextrose 1,000 mls @ 100 mls/hr 09/20/25 15:56 Dextrose 5% 1,000 Ml IVPB PRN PRN Hypoglycemia Protocol Cefepime HCl 500 mg in 50 mls @ 100 mls/hr 09/21/25 17:00 09/22/25 16:24 Maxipime 500 Mg/Ns 50 Ml IVPB 100 mls/hr Q24H JACQUI Administration Insulin Aspart 2 - 5 units 09/20/25 17:00 09/23/25 08:26 Insulin Aspart (*Bkc) 100 Units/Ml SUB-Q Not Given TIDWM JACQUI Protocol Isosorbide Mononitrate 30 mg 09/21/25 09:00 09/23/25 08:31 Isosorbide Mononitrate 30 Mg Tab.Er.24h PO 30 mg DAILY JACQUI Administration Metoprolol Tartrate 50 mg 09/20/25 21:00 09/23/25 08:29 Metoprolol Tartrate 50 Mg Tab PO 50 mg Q12HR JACQUI Administration Minoxidil 5 mg 09/20/25 19:45 09/23/25 08:28 Minoxidil 2.5 Mg Tablet PO 5 mg BID JACQUI Administration Perflutren Lipid Microsphere 0 ml 09/20/25 22:08 Perflutren Lipid Microspheres 1.5 Ml Vial Diluted To 10 Ml Total Volume IV PUSH 09/23/25 22:08 ONCE PRN adequate visualization Protocol Radiology Results: ITS Impressions Chest X-Ray 09/20/25 12:14 Impression: CHF Pelvis CT 09/20/25 14:19 IMPRESSION: 1. No significant change in 12 degrees lower lumbar levoscoliosis with severe spondylosis. 2. No evident sacral decubitus ulcer, abscess or acute intra-abdominal pelvic process. Renal Ultrasound 09/22/25 14:25 IMPRESSION: 1. 7 mm calcification at the mid right kidney which could represent a nonobstructing renal stone or atherosclerotic calcification. No hydronephrosis at either kidney. Labs Labs: Laboratory Results - last 24 hr 09/22/25 09/22/25 09/22/25 11:17 13:14 16:40 WBC 14.2 H RBC 2.89 L Hgb 8.0 L Hct 24.5 L MCV 84.8 MCH 27.7 MCHC 32.7 RDW 15.5 H Plt Count 176 MPV 10.2 Immature Gran % (Auto) Neut % (Auto) Lymph % (Auto) [place] % (Auto) Eos % (Auto) Baso % (Auto) Lymph # (Auto) [place] # (Auto) Eos # (Auto) Baso # (Auto) Abs Immat Gran (auto) Absolute Neuts (auto) Absolute Nucleated RBC Nucleated RBC % Sodium Potassium Chloride Carbon Dioxide Anion Gap BUN Creatinine Estim Creat Clear Calc Estimated GFR Glucose POC Capillary Glucose 167 H 145 H Calcium Magnesium Urine Eosinophils U Random Total Protein Ur Random Sodium Ur Random Urea Urine Creatinine Protein/Creat Ratio 2 09/22/25 09/22/25 09/23/25 20:48 21:01 05:15 WBC 12.4 H RBC 2.85 L Hgb 7.8 L Hct 24.3 L MCV 85.3 MCH 27.4 MCHC 32.1 RDW 15.4 H Plt Count 160 MPV 9.9 Immature Gran % (Auto) 0.9 H Neut % (Auto) 81.7 H Lymph % (Auto) 8.4 L [place] % (Auto) 7.6 Eos % (Auto) 1.2 Baso % (Auto) 0.2 Lymph # (Auto) 1.04 [place] # (Auto) 0.9 H Eos # (Auto) 0.2 Baso # (Auto) 0.0 Abs Immat Gran (auto) 0.11 H Absolute Neuts (auto) 10.1 H Absolute Nucleated RBC 0.000 Nucleated RBC % 0.0 Sodium 130 L Potassium 3.4 Chloride 104 Carbon Dioxide 21 L Anion Gap 5 BUN 72 H Creatinine 4.43 H Estim Creat Clear Calc 10 Estimated GFR 10 L Glucose 112 H POC Capillary Glucose 162 H Calcium 7.3 L Magnesium 2.2 Urine Eosinophils None seen U Random Total Protein 141 Ur Random Sodium 16 Ur Random Urea 507 Urine Creatinine 147.2 Protein/Creat Ratio 2 0.96 H 09/23/25 07:39 WBC RBC Hgb Hct MCV MCH MCHC RDW Plt Count MPV Immature Gran % (Auto) Neut % (Auto) Lymph % (Auto) [place] % (Auto) Eos % (Auto) Baso % (Auto) Lymph # (Auto) [place] # (Auto) Eos # (Auto) Baso # (Auto) Abs Immat Gran (auto) Absolute Neuts (auto) Absolute Nucleated RBC Nucleated RBC % Sodium Potassium Chloride Carbon Dioxide Anion Gap BUN Creatinine Estim Creat Clear Calc Estimated GFR Glucose POC Capillary Glucose 111 H Calcium Magnesium Urine Eosinophils U Random Total Protein Ur Random Sodium Ur Random Urea Urine Creatinine Protein/Creat Ratio 2
--- NOTE | 2025-09-23 13:02 | P.PNNP_ITS ---
Progress Note: A&P Assessment and Plan (1) Acute kidney injury: Code(s): N17.9 - Acute kidney failure, unspecified Status: Acute Assessment and Plan: * slow and steady improvement * as noted on admission (creatinine 5.4mg/dl) * however, has been slowly improving since ... * suspect multifactorial etiology: * infection/sepsis (sacral deubitus ulcer and bacteremia) * prerenal factors * ARB use prior to admission * diuretic use prior to admission * other(?) * evaluation to date noted: * renal ultrasound w/o obstruction * urine electrolytes prerenal * urine eosinophils negative * moderate proteinuria (960mg) * CPK mildly elevated (but not enough to affect kidney function) * follow trend of repeat labs and UOP (2) Stage 4 chronic kidney disease: Code(s): N18.4 - Chronic kidney disease, stage 4 (severe) Status: Chronic Assessment and Plan: * baseline creatinine seems to run ~ 2.3 - 2.9mg/dl in the last year * presumably due to hypertension, diabetes, vascular disease, CHF + need for diuretics, and age-related change * recently re-established care with Dr. Michael for ongoing CKD management (3) Sacral decubitus ulcer: Code(s): L89.159 - Pressure ulcer of sacral region, unspecified stage Status: Acute Assessment and Plan: * as noted on admission * unstageable * General Surgery recommendations noted: * stable * non-operative management * continue dressing changes * pressure relieving measures * on antibiotics * ongoing wound care (4) Bacteremia: Code(s): R78.81 - Bacteremia Status: Acute Assessment and Plan: * blood cultures (on 09/20) with Proteus mirabalis * repeat cultures(on 09/22) with no growth * suspect source = #3 * Infectious Disease following * on antibiotics (5) Anemia: Code(s): D64.9 - Anemia, unspecified Status: Acute Assessment and Plan: * acute on chronic * likely due to ROOSEVELT, CKD, and acute illness * not a candidate for IV iron given infection/bacteremia * follows with Hematology for KENISHA administration * follow trend of H/H (6) CHF (congestive heart failure): Qualifiers: Heart failure type: unspecified Heart failure chronicity: chronic Q ualified Code(s): I50.9 - Heart failure, unspecified Code(s): I50.9 - Heart failure, unspecified Status: Chronic Assessment and Plan: * known history of diastolic heart failure * however, last Echo (09/21) noted: * left ventricle is normal in size with hyperdynamic systolic function * severe concentric left ventricular hypertrophy * left ventricular ejection fraction is visually greater than 70% * right ventricle is normal in size and systolic function * trace mitral regurgitation * trace tricuspid regurgitation * no evidence of exacerbation * PRN IV diuretics for now * likely resume oral diuretics closer to discharge (7) Hypertension: Qualifiers: Hypertension type: primary hypertension Qualified Code(s): I10 - Essential (primary) hypertension Code(s): I10 - Essential (primary) hypertension Status: Chronic Assessment and Plan: * reasonable control at this time * noted some episodic relative hypotension * losartan on hold * other BP medications with parameters * wean off minoxidil if possible (8) Diabetes: Code(s): E11.9 - Type 2 diabetes mellitus without complications Status: Chronic Assessment and Plan: * follow accu-cheks * glycemic control per hospitalist Will continue to follow. L Subjective Date/time seen: 09/23/25 13:02 Interval history: Follow-up for acute kidney injury/acute renal failure on chronic kidney disease. Renal function/creatinine continues to slowly improve by trend of labs; no apparent complaints voiced at the time of my visit; results of blood cultures noted but tolerating antibiotic therapy; no issues/events overnight or earlier this morning. Exam 2 Narrative: General: elderly but WD/WN female in NAD Heart: normal S1 and S2; no rub Lungs: clear anteriorly Abdomen: soft, nontender, nondistended, positive bowel sounds Extremities: no cyanosis or clubbing; trace edema Skin: warm and intact; buttocks wound present (dressings in place) Objective Data Vital Signs Vital Signs: Vital Signs Temp Pulse Resp BP Pulse Ox O2 Del Method 09/23/25 13:00 97.9 F 74 18 108/62 97 09/23/25 08:29 62 09/23/25 08:00 Room Air 09/23/25 06:00 98.1 F 64 17 110/50 L 98 Intake/Output Intake/Output: Intake & Output 09/20/25 09/21/25 09/22/25 09/23/25 23:59 23:59 23:59 23:59 Intake Total 1550 1215 1438 1004 Output Total 200 394 854 1473 Balance 1350 013 821 -281 Meds/Results Medications: Active Medications Generic Name Dose Route Start Last Admin Trade Name Surinder PRN Reason Stop Dose Admin Aspirin 81 mg 09/21/25 09:00 09/23/25 08:28 Aspirin 81 Mg Chewable Tablet PO 81 mg DAILY JACQUI Administration Atorvastatin Calcium 80 mg 09/21/25 09:00 09/23/25 08:27 Atorvastatin 40 Mg Tablet PO 80 mg DAILY JACQUI Administration Citalopram Hydrobromide 20 mg 09/21/25 09:00 09/23/25 08:30 Citalopram Hydrobromide 20 Mg Tablet PO 20 mg DAILY JACQUI Administration Collagenase 1 applic 09/20/25 21:00 09/23/25 08:32 Collagenase Oint 30 Gm Tube TOPICAL 1 applic Q12HR JACQUI Administration Dextrose 12.5 gm 09/20/25 15:56 Dextrose 50% 25 Gm/50 Ml Syringe IV PUSH PRN PRN Hypoglycemia Protocol Ferrous Sulfate 325 mg 09/21/25 09:00 09/23/25 16:59 Ferrous Sulfate 325 Mg Tablet PO 325 mg BID JACQUI Administration Glucagon 1 mg 09/20/25 15:56 Glucagon For Inj 1 Mg Vial IM PRN PRN Hypoglycemia Protocol Glucose 15 gm 09/20/25 15:56 Glucose Oral Gel 15 Gm Of Glucse In 37.5 Gm Tube PO PRN PRN Hypoglycemia Protocol Heparin Sodium (Porcine) 5,000 units 09/20/25 22:00 09/23/25 14:17 Heparin Sodium 5,000 Units/Ml Vial SUB-Q 5,000 units Q8HR JACQUI Administration Dextrose 1,000 mls @ 100 mls/hr 09/20/25 15:56 Dextrose 5% 1,000 Ml IVPB PRN PRN Hypoglycemia Protocol Ceftriaxone Sodium 1 gm/ 50 mls @ 100 mls/hr 09/23/25 14:00 09/23/25 15:12 Sodium Chloride IVPB Infused Q24H JACQUI Infusion Insulin Aspart 2 - 5 units 09/20/25 17:00 09/23/25 17:00 Insulin Aspart (*Bkc) 100 Units/Ml SUB-Q Not Given TIDWM [facility] Protocol Isosorbide Mononitrate 30 mg 09/21/25 09:00 09/23/25 08:31 Isosorbide Mononitrate 30 Mg Tab.Er.24h PO 30 mg DAILY JACQUI Administration Metoprolol Tartrate 50 mg 09/20/25 21:00 09/23/25 08:29 Metoprolol Tartrate 50 Mg Tab PO 50 mg Q12HR JACQUI Administration Minoxidil 5 mg 09/20/25 19:45 09/23/25 17:00 Minoxidil 2.5 Mg Tablet PO 5 mg BID JACQUI Administration Radiology Results: ITS Impressions Chest X-Ray 09/20/25 12:14 Impression: CHF Pelvis CT 09/20/25 14:19 IMPRESSION: 1. No significant change in 12 degrees lower lumbar levoscoliosis with severe spondylosis. 2. No evident sacral decubitus ulcer, abscess or acute intra-abdominal pelvic process. Renal Ultrasound 09/22/25 14:25 IMPRESSION: 1. 7 mm calcification at the mid right kidney which could represent a nonobstructing renal stone or atherosclerotic calcification. No hydronephrosis at either kidney. Labs Labs: Laboratory Tests 09/23/25 05:15 09/23/25 05:15 Calcium 7.3 L Magnesium 2.2 Microbiology 09/20/25 11:12 Blood Blood Culture - Final Proteus mirabilis 09/20/25 14:52 Blood Blood Culture - Preliminary Gram negative bacilli isolated
--- NOTE | 2025-09-23 13:02 | PM.PNNEP ---
Progress Note: A&P Assessment and Plan (1) Acute kidney injury: Code(s): N17.9 - Acute kidney failure, unspecified Status: Acute Assessment and Plan: slow and steady improvement as noted on admission (creatinine 5.4mg/dl) however, has been slowly improving since ... suspect multifactorial etiology: infection/sepsis (sacral deubitus ulcer and bacteremia) prerenal factors ARB use prior to admission diuretic use prior to admission other(?) evaluation to date noted: renal ultrasound w/o obstruction urine electrolytes prerenal urine eosinophils negative moderate proteinuria (960mg) CPK mildly elevated (but not enough to affect kidney function) follow trend of repeat labs and UOP (2) Stage 4 chronic kidney disease: Code(s): N18.4 - Chronic kidney disease, stage 4 (severe) Status: Chronic Assessment and Plan: baseline creatinine seems to run ~ 2.3 - 2.9mg/dl in the last year presumably due to hypertension, diabetes, vascular disease, CHF + need for diuretics, and age-related change recently re-established care with Dr. Michael for ongoing CKD management (3) Sacral decubitus ulcer: Code(s): L89.159 - Pressure ulcer of sacral region, unspecified stage Status: Acute Assessment and Plan: as noted on admission unstageable General Surgery recommendations noted: stable non-operative management continue dressing changes pressure relieving measures on antibiotics ongoing wound care (4) Bacteremia: Code(s): R78.81 - Bacteremia Status: Acute Assessment and Plan: blood cultures (on 09/20) with Proteus mirabalis repeat cultures(on 09/22) with no growth suspect source = #3 Infectious Disease following on antibiotics (5) Anemia: Code(s): D64.9 - Anemia, unspecified Status: Acute Assessment and Plan: acute on chronic likely due to R[place], CKD, and acute illness not a candidate for IV iron given infection/bacteremia follows with Hematology for KENISHA administration follow trend of H/H (6) CHF (congestive heart failure): Qualifiers: Heart failure type: unspecified Heart failure chronicity: chronic Qualified Code(s): I50.9 - Heart failure, unspecified Code(s): I50.9 - Heart failure, unspecified Status: Chronic Assessment and Plan: known history of diastolic heart failure however, last Echo (09/21) noted: left ventricle is normal in size with hyperdynamic systolic function severe concentric left ventricular hypertrophy left ventricular ejection fraction is visually greater than 70% right ventricle is normal in size and systolic function trace mitral regurgitation trace tricuspid regurgitation no evidence of exacerbation PRN IV diuretics for now likely resume oral diuretics closer to discharge (7) Hypertension: Qualifiers: Hypertension type: primary hypertension Qualified Code(s): I10 - Essential (primary) hypertension Code(s): I10 - Essential (primary) hypertension Status: Chronic Assessment and Plan: reasonable control at this time noted some episodic relative hypotension losartan on hold other BP medications with parameters wean off minoxidil if possible (8) Diabetes: Code(s): E11.9 - Type 2 diabetes mellitus without complications Status: Chronic Assessment and Plan: follow accu-cheks glycemic control per hospitalist Will continue to follow. Subjective Date/time seen: 09/23/25 13:02 Interval history: Follow-up for acute kidney injury/acute renal failure on chronic kidney disease. Renal function/creatinine continues to slowly improve by trend of labs; no apparent complaints voiced at the time of my visit; results of blood cultures noted but tolerating antibiotic therapy; no issues/events overnight or earlier this morning. Exam Narrative: General: elderly but WD/WN female in NAD Heart: normal S1 and S2; no rub Lungs: clear anteriorly Abdomen: soft, nontender, nondistended, positive bowel sounds Extremities: no cyanosis or clubbing; trace edema Skin: warm and intact; buttocks wound present (dressings in place) Objective Data Vital Signs Vital Signs: Vital Signs Temp Pulse Resp BP Pulse Ox O2 Del Method 09/23/25 13:00 97.9 F 74 18 108/62 97 09/23/25 08:29 62 09/23/25 08:00 Room Air 09/23/25 06:00 98.1 F 64 17 110/50 L 98 Intake/Output Intake/Output: Intake & Output 09/20/25 09/21/25 09/22/25 09/23/25 23:59 23:59 23:59 23:59 Intake Total 1550 1215 1438 1004 Output Total 200 042 953 0922 Balance 1350 690 688 -221 Meds/Results Medications: Active Medications Generic Name Dose Route Start Last Admin Trade Name Freq PRN Reason Stop Dose Admin Aspirin 81 mg 09/21/25 09:00 09/23/25 08:28 Aspirin 81 Mg Chewable Tablet PO 81 mg DAILY JACQUI Administration Atorvastatin Calcium 80 mg 09/21/25 09:00 09/23/25 08:27 Atorvastatin 40 Mg Tablet PO 80 mg DAILY JACQUI Administration Citalopram Hydrobromide 20 mg 09/21/25 09:00 09/23/25 08:30 Citalopram Hydrobromide 20 Mg Tablet PO 20 mg DAILY JACQUI Administration Collagenase 1 applic 09/20/25 21:00 09/23/25 08:32 Collagenase Oint 30 Gm Tube TOPICAL 1 applic Q12HR JACQUI Administration Dextrose 12.5 gm 09/20/25 15:56 Dextrose 50% 25 Gm/50 Ml Syringe IV PUSH PRN PRN Hypoglycemia Protocol Ferrous Sulfate 325 mg 09/21/25 09:00 09/23/25 16:59 Ferrous Sulfate 325 Mg Tablet PO 325 mg BID JACQUI Administration Glucagon 1 mg 09/20/25 15:56 Glucagon For Inj 1 Mg Vial IM PRN PRN Hypoglycemia Protocol Glucose 15 gm 09/20/25 15:56 Glucose Oral Gel 15 Gm Of Glucse In 37.5 Gm Tube PO PRN PRN Hypoglycemia Protocol Heparin Sodium (Porcine) 5,000 units 09/20/25 22:00 09/23/25 14:17 Heparin Sodium 5,000 Units/Ml Vial SUB-Q 5,000 units Q8HR JACQUI Administration Dextrose 1,000 mls @ 100 mls/hr 09/20/25 15:56 Dextrose 5% 1,000 Ml IVPB PRN PRN Hypoglycemia Protocol Ceftriaxone Sodium 1 gm/ 50 mls @ 100 mls/hr 09/23/25 14:00 09/23/25 15:12 Sodium Chloride IVPB Infused Q24H JACQUI Infusion Insulin Aspart 2 - 5 units 09/20/25 17:00 09/23/25 17:00 Insulin Aspart (*Bkc) 100 Units/Ml SUB-Q Not Given TIDWM [facility] Protocol Isosorbide Mononitrate 30 mg 09/21/25 09:00 09/23/25 08:31 Isosorbide Mononitrate 30 Mg Tab.Er.24h PO 30 mg DAILY JACQUI Administration Metoprolol Tartrate 50 mg 09/20/25 21:00 09/23/25 08:29 Metoprolol Tartrate 50 Mg Tab PO 50 mg Q12HR JACQUI Administration Minoxidil 5 mg 09/20/25 19:45 09/23/25 17:00 Minoxidil 2.5 Mg Tablet PO 5 mg BID JACQUI Administration Radiology Results: ITS Impressions Chest X-Ray 09/20/25 12:14 Impression: CHF Pelvis CT 09/20/25 14:19 IMPRESSION: 1. No significant change in 12 degrees lower lumbar levoscoliosis with severe spondylosis. 2. No evident sacral decubitus ulcer, abscess or acute intra-abdominal pelvic process. Renal Ultrasound 09/22/25 14:25 IMPRESSION: 1. 7 mm calcification at the mid right kidney which could represent a nonobstructing renal stone or atherosclerotic calcification. No hydronephrosis at either kidney. Labs Labs: Laboratory Tests 09/23/25 05:15 09/23/25 05:15 Calcium 7.3 L Magnesium 2.2 Microbiology 09/20/25 11:12 Blood Blood Culture - Final Proteus mirabilis 09/20/25 14:52 Blood Blood Culture - Preliminary Gram negative bacilli isolated
[2025-09-23 14:00] VITALS: BP 108/62; PULSE 74; RESP 18; TEMP 36.6; O2SAT 97
[2025-09-23] MEDS: cefTRIAXone 1 GM in SODIUM CHLORIDE 0.9% IV 50 ML 100 ML IVPB (14:42)
--- NOTE | 2025-09-23 19:15 | PC.NURSE ---
This RN, Daina Molina, as reviewed documentation by Marilyn Fields RNLP, from 09/23/25 [id number] and agree with the findings.
[2025-09-23 21:06] VITALS: BP 87/57; PULSE 75; RESP 14; TEMP 36.9; O2SAT 96
[2025-09-24 04:37] VITALS: BP 126/53; PULSE 59; RESP 18; TEMP 36.8; O2SAT 96
[2025-09-24 06:07] LABS: Hematocrit 24.2 % (37.0-47.0); Hemoglobin 7.8 g/dL (12.0-15.0); Immature Granulocyte Percent A 1.0 % (0-0.5); Lymphocytes Absolute Auto 1.04 K/mm3 (0.9-3.2); Mean Corpuscular HGB Conc 32.2 g/dl (32-36); Mean Corpuscular Hemoglobin 27.7 pg (26-34); Mean Corpuscular Volume 85.8 fl (80-100); Nucleated Red Blood Cells Absolute Auto 0.000 K/mm3 (0.0-0.012); Nucleated Red Blood Cells Perc 0.0 % (0.0-0.2); Platelet Count Result 158 k/mm3 (150-375); Red Blood Count 2.82 M/mm3 (4.2-5.4); White Blood Count 10.3 K/mm3 (4.5-10.0)
[2025-09-24 06:28] LABS: Anion Gap 6 mmol/L (4-12); Blood Urea Nitrogen 76 mg/dL (7-17); Calcium 7.7 mg/dL (8.4-10.2); Carbon Dioxide 23 mmol/L (22-30); Chloride 103 mmol/L (98-107); Estimated CRCL calculation 11 ml/min; Estimated Glomerular Filt Rate 11; Glucose 93 mg/dL (65-110); Magnesium 2.2 mg/dL (1.6-2.3); Potassium 3.6 mmol/L (3.4-5.0); Sodium 132 mmol/L (137-145)
--- NOTE | 2025-09-24 09:56 | P.PNINF_ITS ---
Progress Note: A&P Assessment and Plan (1) Deep tissue injury: Code(s): T14.8XXA - Other injury of unspecified body region, initial encounter Status: Acute (2) Unstageable pressure ulcer of sacral region: Code(s): L89.150 - Pressure ulcer of sacral region, unstageable Status: Acute (3) Gram-negative bacteremia: Code(s): R78.81 - Bacteremia Status: Acute (4) Acute kidney injury superimposed on CKD: Code(s): N17.9 - Acute kidney failure, unspecified; N18.9 - Chronic kidney disease, unspecified Status: Acute Plan Impression: 1. Proteus bloodstream infection from admission of 09/20. Three of 4 bottles positive. -- Based on workup to date, suspect necrotic sacral wound as source. -- potential for occult GI complication as source. CT of pelvis did not comment on GI tract. -- urinalysis not consistent with UTI. 2. Necrotic sacral pressure ulcer, unstageable, and although CT scan did not identify extensive ulcer or any abscess formation would still consider this the source of polymicrobial Gram-negative bacteremia. 3. Acute on chronic kidney disease. Plan: -- White blood cell count continues to improve. Based on presence of Proteus and sensitivities have discontinued metronidazole and changed cefepime to ceftriaxone. -- follow repeat 09/22 blood cultures. If again positive would consider LUZ MARIA. -- assuming negative 09/22 blood cultures anticipate continuing coverage for Proteus bacteremia through 10/02. -- surgery following although no debridement is planned at this time. -- may require colonoscopy in the future. Subjective Date/time seen: 09/24/25 09:56 Interval history: 09/23/2025: Afebrile. Somewhat soft blood pressure but otherwise vital signs stable. White blood cell count decreased to 12.4. Creatinine 4.43 down from 5.40 on admission. Renal ultrasound with 7 mm calcification at the mid right kidney which could represent a nonobstructing renal stone. No hydronephrosis. TTE 09/22 without mention of vegetation. 09/24/2025: Afebrile and vital signs stable although with brief episode of hypotension reported last evening. Now normotensive. White blood cell count improved further and now 10.3. Creatinine decreased to 4.00. Blood culture 09/22: Pending. Blood culture 09/20: [place]-sensitive Proteus in 3/4 bottles. Review of Systems Review of Systems: All systems reviewed & are unremarkable except as noted in HPI and below Exam Narrative: Patient is awake, alert, interactive, and nontoxic. No respiratory difficulty. No significant abdominal distension and without tenderness. Denies diarrhea. Petit catheter in place. Peripheral IV sites unremarkable. No rash. Sacral wound photos observed. Necrotic sacral pressure wound present which is unstageable. Objective Data Vital Signs Vital Signs: Vital Signs - 24 hr 09/23/25 14:00 09/23/25 21:06 09/24/25 04:37 Temperature 97.9 F 98.4 F 98.2 F Pulse Rate 74 75 59 L Respiratory Rate 18 14 18 Blood Pressure 108/62 87/57 L 126/53 L Pulse Oximetry 97 96 96 Intake/Output Intake/Output: Intake & Output 09/21/25 09/22/25 09/23/25 09/24/25 23:59 23:59 23:59 23:59 Intake Total 1215 1438 1004 618 Output Total 771 052 7784 325 Balance 690 688 -221 293 Meds/Results Medications: Active Medications Generic Name Dose Route Start Last Admin Trade Name Freq PRN Reason Stop Dose Admin Aspirin 81 mg 09/21/25 09:00 09/23/25 08:28 Aspirin 81 Mg Chewable Tablet PO 81 mg DAILY JACQUI Administration Atorvastatin Calcium 80 mg 09/21/25 09:00 09/23/25 08:27 Atorvastatin 40 Mg Tablet PO 80 mg DAILY JACQUI Administration Citalopram Hydrobromide 20 mg 09/21/25 09:00 09/23/25 08:30 Citalopram Hydrobromide 20 Mg Tablet PO 20 mg DAILY JACQUI Administration Collagenase 1 applic 09/20/25 21:00 09/23/25 22:44 Collagenase Oint 30 Gm Tube TOPICAL 1 applic Q12HR JACQUI Administration Dextrose 12.5 gm 09/20/25 15:56 Dextrose 50% 25 Gm/50 Ml Syringe IV PUSH PRN PRN Hypoglycemia Protocol Ferrous Sulfate 325 mg 09/21/25 09:00 09/23/25 16:59 Ferrous Sulfate 325 Mg Tablet PO 325 mg BID JACQUI Administration Glucagon 1 mg 09/20/25 15:56 Glucagon For Inj 1 Mg Vial IM PRN PRN Hypoglycemia Protocol Glucose 15 gm 09/20/25 15:56 Glucose Oral Gel 15 Gm Of Glucse In 37.5 Gm Tube PO PRN PRN Hypoglycemia Protocol Heparin Sodium (Porcine) 5,000 units 09/20/25 22:00 09/24/25 05:37 Heparin Sodium 5,000 Units/Ml Vial SUB-Q 5,000 units Q8HR JACQUI Administration Dextrose 1,000 mls @ 100 mls/hr 09/20/25 15:56 Dextrose 5% 1,000 Ml IVPB PRN PRN Hypoglycemia Protocol Ceftriaxone Sodium 1 gm/ 50 mls @ 100 mls/hr 09/23/25 14:00 09/23/25 15:12 Sodium Chloride IVPB Infused Q24H JACQUI Infusion Insulin Aspart 2 - 5 units 09/20/25 17:00 09/24/25 07:35 Insulin Aspart (*Bkc) 100 Units/Ml SUB-Q Not Given TIDWM JACQUI Protocol Isosorbide Mononitrate 30 mg 09/21/25 09:00 09/23/25 08:31 Isosorbide Mononitrate 30 Mg Tab.Er.24h PO 30 mg DAILY JACQUI Administration Metoprolol Tartrate 50 mg 09/20/25 21:00 09/23/25 22:45 Metoprolol Tartrate 50 Mg Tab PO 50 mg Q12HR JACQUI Administration Minoxidil 5 mg 09/20/25 19:45 09/23/25 17:00 Minoxidil 2.5 Mg Tablet PO 5 mg BID JACQUI Administration Radiology Results: ITS Impressions Chest X-Ray 09/20/25 12:14 Impression: CHF Pelvis CT 09/20/25 14:19 IMPRESSION: 1. No significant change in 12 degrees lower lumbar levoscoliosis with severe spondylosis. 2. No evident sacral decubitus ulcer, abscess or acute intra-abdominal pelvic process. Renal Ultrasound 09/22/25 14:25 IMPRESSION: 1. 7 mm calcification at the mid right kidney which could represent a nonobstructing renal stone or atherosclerotic calcification. No hydronephrosis at either kidney. Labs Labs: Laboratory Results - last 24 hr 09/23/25 09/23/25 09/23/25 11:34 16:49 20:59 WBC RBC Hgb Hct MCV MCH MCHC RDW Plt Count MPV Immature Gran % (Auto) Neut % (Auto) Lymph % (Auto) [place] % (Auto) Eos % (Auto) Baso % (Auto) Lymph # (Auto) [place] # (Auto) Eos # (Auto) Baso # (Auto) Abs Immat Gran (auto) Absolute Neuts (auto) Absolute Nucleated RBC Nucleated RBC % Sodium Potassium Chloride Carbon Dioxide Anion Gap BUN Creatinine Estim Creat Clear Calc Estimated GFR Glucose POC Capillary Glucose 128 H 135 H 159 H Calcium Magnesium 09/24/25 09/24/25 09/24/25 05:36 05:37 07:33 WBC 10.3 H RBC 2.82 L Hgb 7.8 L Hct 24.2 L MCV 85.8 MCH 27.7 MCHC 32.2 RDW 15.5 H Plt Count 158 MPV 9.8 Immature Gran % (Auto) 1.0 H Neut % (Auto) 78.7 H Lymph % (Auto) 10.1 L [place] % (Auto) 8.0 Eos % (Auto) 1.9 Baso % (Auto) 0.3 Lymph # (Auto) 1.04 [place] # (Auto) 0.8 H Eos # (Auto) 0.2 Baso # (Auto) 0.0 Abs Immat Gran (auto) 0.10 H Absolute Neuts (auto) 8.1 H Absolute Nucleated RBC 0.000 Nucleated RBC % 0.0 Sodium 132 L Potassium 3.6 Chloride 103 Carbon Dioxide 23 Anion Gap 6 BUN 76 H Creatinine 4.00 H Estim Creat Clear Calc 11 Estimated GFR 11 L Glucose 93 POC Capillary Glucose 107 H Calcium 7.7 L Magnesium 2.2
[2025-09-24 09:58] VITALS: PULSE 62
[2025-09-24] MEDS: ATORVASTATIN 40 MG TABLET 80 MG PO (09:58)
[2025-09-24] MEDS: METOPROLOL TARTRATE 50 MG TAB PO (09:58)
[2025-09-24] MEDS: ASPIRIN 81 MG CHEWABLE TABLET PO (09:58)
[2025-09-24] MEDS: ISOSORBIDE MONONITRATE 30 MG TAB.ER.24H PO (09:59)
[2025-09-24] MEDS: CITALOPRAM HYDROBROMIDE 20 MG TABLET PO (09:59)
[2025-09-24] MEDS: FERROUS SULFATE 325 MG TABLET PO ×2 (09:59→17:09)
[2025-09-24] MEDS: COLLAGENASE OINT 30 GM TUBE 1 APPLIC TOPICAL ×2 (10:00→21:37)
--- NOTE | 2025-09-24 11:16 | PM.IMPN ---
Progress Note: A&P Assessment and Plan (1) Chronic kidney disease, stage 4 (severe): Code(s): N18.4 - Chronic kidney disease, stage 4 (severe) Status: Chronic (2) Unstageable pressure ulcer of sacral region: Code(s): L89.150 - Pressure ulcer of sacral region, unstageable Status: Acute Plan Pressure ulcer unstageable sacral area Pansensitive Proteus bacteremia -patient a large pressure ulcer which may need debridement gangrenous odor. [id number] -appreciate general surgical consultation: non-operative management with antibiotics -blood culture growing pansensitive Proteus mirabilis, repeat blood cultures from 09/22 pending -antibiotics: Cefepime, Flagyl -> rocephin 09/23- -improvement of leukocytosis 18k->14k->12->10k -consulted ID: Recommendation for Rocephin -echocardiogram: EF >70%, severe concentric left ventricle hypertrophy, normal right ventricle size and function -PT and OT consulted for weakness -continue pressure relieving measures -blood cultures positive for Proteus in aerobic and anaerobic bottles Acute kidney injury on CKD 4 Hypervolemic hyponatremia -his creatinine slightly improved from 5.4-4.92->>4.0, baseline is closer to 2.3-2.9 -continue monitor renal function -with significant elevated BNP will be careful with IV fluids. With the infection will hold off Lasix -hold losartan -consulted nephrology Dr. Granados to help assess volume status and consideration for diuresis -sodium 132, improved and stable Chronic conditions -hyperlipidemia: Statin, aspirin, Imdur, beta-caitlyn, Arb -depression: Citalopram -iron deficiency anemia: Ferrous sulfate supplement, hemoglobin 7.8, appears to be stable -type 2 diabetes: Sliding scale insulin, Accu-Cheks a.c. HS, hypoglycemia protocol -essential hypertension: losartan, metoprolol, minoxidil Diet: Renal diet with supplement DVT prophylaxis: SubQ heparin Code status: Full code Disposition: SNF>2 days Time Spent With Patient Time: 35 minutes Subjective Date/time seen: 09/24/25 11:16 Interval history: Patient seen and examined. She is doing well with no new complaints. Labs continue to improve with conservative management with antibiotics. Titrating the antibiotics down to ceftriaxone based on blood cultures of Proteus. Repeat blood cultures 09/22 pending. Review of Systems Review of Systems: 10 point ROS complete, negative other than what is specified in HPI. Exam Narrative: - GENERAL: Pleasant elder woman in no acute distress - EYES: EOMI. Anicteric. - HENT: moist oral mucosa, edentulous - LUNGS: Clear to auscultation bilaterally - CARDIOVASCULAR: Regular rate and rhythm. - ABDOMEN: Soft, non-tender and non-distended. Was not able to examine the wound on her buttock - EXTREMITIES: Peripheral pulses 2+. - NEUROLOGIC: No focal neurological deficits. CN II-XII grossly intact. - PSYCHIATRIC: Awake, Alert. Appropriate mood and affect. In good spirits Objective Data Vital Signs Vital Signs: Vital Signs - 24 hr 09/23/25 14:00 09/23/25 21:06 09/24/25 04:37 Temperature 36.6 C 36.9 C 36.8 C Pulse Rate 74 75 59 L Respiratory Rate 18 14 18 Blood Pressure 108/62 87/57 L 126/53 L Pulse Oximetry 97 96 96 Oxygen Delivery 09/24/25 08:00 09/24/25 09:58 Temperature Pulse Rate 62 Respiratory Rate Blood Pressure Pulse Oximetry Oxygen Delivery Room Air Intake/Output Intake/Output: Intake & Output 09/21/25 09/22/25 09/23/25 09/24/25 23:59 23:59 23:59 23:59 Intake Total 1215 1438 1004 618 Output Total 059 013 9148 325 Balance 690 588 -221 293 Meds/Results Medications: Active Medications Generic Name Dose Route Start Last Admin Trade Name Freq PRN Reason Stop Dose Admin Aspirin 81 mg 09/21/25 09:00 09/24/25 09:58 Aspirin 81 Mg Chewable Tablet PO 81 mg DAILY JACQUI Administration Atorvastatin Calcium 80 mg 09/21/25 09:00 09/24/25 09:58 Atorvastatin 40 Mg Tablet PO 80 mg DAILY JACQUI Administration Citalopram Hydrobromide 20 mg 09/21/25 09:00 09/24/25 09:59 Citalopram Hydrobromide 20 Mg Tablet PO 20 mg DAILY JACQUI Administration Collagenase 1 applic 09/20/25 21:00 09/24/25 10:00 Collagenase Oint 30 Gm Tube TOPICAL 1 applic Q12HR JACQUI Administration Dextrose 12.5 gm 09/20/25 15:56 Dextrose 50% 25 Gm/50 Ml Syringe IV PUSH PRN PRN Hypoglycemia Protocol Ferrous Sulfate 325 mg 09/21/25 09:00 09/24/25 09:59 Ferrous Sulfate 325 Mg Tablet PO 325 mg BID JACQUI Administration Glucagon 1 mg 09/20/25 15:56 Glucagon For Inj 1 Mg Vial IM PRN PRN Hypoglycemia Protocol Glucose 15 gm 09/20/25 15:56 Glucose Oral Gel 15 Gm Of Glucse In 37.5 Gm Tube PO PRN PRN Hypoglycemia Protocol Heparin Sodium (Porcine) 5,000 units 09/20/25 22:00 09/24/25 05:37 Heparin Sodium 5,000 Units/Ml Vial SUB-Q 5,000 units Q8HR JACQUI Administration Dextrose 1,000 mls @ 100 mls/hr 09/20/25 15:56 Dextrose 5% 1,000 Ml IVPB PRN PRN Hypoglycemia Protocol Ceftriaxone Sodium 1 gm/ 50 mls @ 100 mls/hr 09/23/25 14:00 09/23/25 15:12 Sodium Chloride IVPB Infused Q24H JACQUI Infusion Insulin Aspart 2 - 5 units 09/20/25 17:00 09/24/25 07:35 Insulin Aspart (*Bkc) 100 Units/Ml SUB-Q Not Given TIDWM [facility] Protocol Isosorbide Mononitrate 30 mg 09/21/25 09:00 09/24/25 09:59 Isosorbide Mononitrate 30 Mg Tab.Er.24h PO 30 mg DAILY JACQUI Administration Metoprolol Tartrate 50 mg 09/20/25 21:00 09/24/25 09:58 Metoprolol Tartrate 50 Mg Tab PO 50 mg Q12HR JACQUI Administration Minoxidil 5 mg 09/20/25 19:45 09/24/25 09:58 Minoxidil 2.5 Mg Tablet PO 5 mg BID JACQUI Administration Radiology Results: ITS Impressions Chest X-Ray 09/20/25 12:14 Impression: CHF Pelvis CT 09/20/25 14:19 IMPRESSION: 1. No significant change in 12 degrees lower lumbar levoscoliosis with severe spondylosis. 2. No evident sacral decubitus ulcer, abscess or acute intra-abdominal pelvic process. Renal Ultrasound 09/22/25 14:25 IMPRESSION: 1. 7 mm calcification at the mid right kidney which could represent a nonobstructing renal stone or atherosclerotic calcification. No hydronephrosis at either kidney. Labs Labs: Laboratory Results - last 24 hr 09/23/25 09/23/25 09/23/25 11:34 16:49 20:59 WBC RBC Hgb Hct MCV MCH MCHC RDW Plt Count MPV Immature Gran % (Auto) Neut % (Auto) Lymph % (Auto) Emanuel % (Auto) Eos % (Auto) Baso % (Auto) Lymph # (Auto) Emanuel # (Auto) Eos # (Auto) Baso # (Auto) Abs Immat Gran (auto) Absolute Neuts (auto) Absolute Nucleated RBC Nucleated RBC % Sodium Potassium Chloride Carbon Dioxide Anion Gap BUN Creatinine Estim Creat Clear Calc Estimated GFR Glucose POC Capillary Glucose 128 H 135 H 159 H Calcium Magnesium 09/24/25 09/24/25 09/24/25 05:36 05:37 07:33 WBC 10.3 H RBC 2.82 L Hgb 7.8 L Hct 24.2 L MCV 85.8 MCH 27.7 MCHC 32.2 RDW 15.5 H Plt Count 158 MPV 9.8 Immature Gran % (Auto) 1.0 H Neut % (Auto) 78.7 H Lymph % (Auto) 10.1 L Emanuel % (Auto) 8.0 Eos % (Auto) 1.9 Baso % (Auto) 0.3 Lymph # (Auto) 1.04 Emanuel # (Auto) 0.8 H Eos # (Auto) 0.2 Baso # (Auto) 0.0 Abs Immat Gran (auto) 0.10 H Absolute Neuts (auto) 8.1 H Absolute Nucleated RBC 0.000 Nucleated RBC % 0.0 Sodium 132 L Potassium 3.6 Chloride 103 Carbon Dioxide 23 Anion Gap 6 BUN 76 H Creatinine 4.00 H Estim Creat Clear Calc 11 Estimated GFR 11 L Glucose 93 POC Capillary Glucose 107 H Calcium 7.7 L Magnesium 2.2 09/24/25 11:13 WBC RBC Hgb Hct MCV MCH MCHC RDW Plt Count MPV Immature Gran % (Auto) Neut % (Auto) Lymph % (Auto) Emanuel % (Auto) Eos % (Auto) Baso % (Auto) Lymph # (Auto) Emanuel # (Auto) Eos # (Auto) Baso # (Auto) Abs Immat Gran (auto) Absolute Neuts (auto) Absolute Nucleated RBC Nucleated RBC % Sodium Potassium Chloride Carbon Dioxide Anion Gap BUN Creatinine Estim Creat Clear Calc Estimated GFR Glucose POC Capillary Glucose 135 H Calcium Magnesium
--- NOTE | 2025-09-24 13:55 | P.PNNP_ITS ---
Progress Note: A&P Assessment and Plan (1) Acute kidney injury: Code(s): N17.9 - Acute kidney failure, unspecified Status: Acute Assessment and Plan: * slow and steady improvement * as noted on admission (creatinine 5.4mg/dl) * however, has been slowly improving since ... * suspect multifactorial etiology: * infection/sepsis (sacral deubitus ulcer and bacteremia) * prerenal factors * ARB use prior to admission * diuretic use prior to admission * other(?) * evaluation to date noted: * renal ultrasound w/o obstruction * urine electrolytes prerenal * urine eosinophils negative * moderate proteinuria (960mg) * CPK mildly elevated (but not enough to affect kidney function) * follow trend of repeat labs and UOP (2) Stage 4 chronic kidney disease: Code(s): N18.4 - Chronic kidney disease, stage 4 (severe) Status: Chronic Assessment and Plan: * baseline creatinine seems to run ~ 2.3 - 2.9mg/dl in the last year * presumably due to hypertension, diabetes, vascular disease, CHF + need for diuretics, and age-related change * recently re-established care with Dr. Michael for ongoing CKD management (3) Sacral decubitus ulcer: Code(s): L89.159 - Pressure ulcer of sacral region, unspecified stage Status: Acute Assessment and Plan: * as noted on admission * unstageable * General Surgery recommendations noted: * stable * non-operative management * continue dressing changes * pressure relieving measures * on antibiotics * ongoing wound care (4) Bacteremia: Code(s): R78.81 - Bacteremia Status: Acute Assessment and Plan: * blood cultures (on 09/20) with Proteus mirabalis * repeat cultures(on 09/22) with no growth * suspect source = #3 * Infectious Disease following * on antibiotics (5) Anemia: Code(s): D64.9 - Anemia, unspecified Status: Acute Assessment and Plan: * acute on chronic * likely due to R[place], CKD, and acute illness * not a candidate for IV iron given infection/bacteremia * follows with Hematology for KENISHA administration * follow trend of H/H (6) CHF (congestive heart failure): Qualifiers: Heart failure type: unspecified Heart failure chronicity: chronic Q ualified Code(s): I50.9 - Heart failure, unspecified Code(s): I50.9 - Heart failure, unspecified Status: Chronic Assessment and Plan: * known history of diastolic heart failure * however, last Echo (09/21) noted: * left ventricle is normal in size with hyperdynamic systolic function * severe concentric left ventricular hypertrophy * left ventricular ejection fraction is visually greater than 70% * right ventricle is normal in size and systolic function * trace mitral regurgitation * trace tricuspid regurgitation * no evidence of exacerbation * PRN IV diuretics for now * likely resume oral diuretics closer to discharge (7) Hypertension: Qualifiers: Hypertension type: primary hypertension Qualified Code(s): I10 - Essential (primary) hypertension Code(s): I10 - Essential (primary) hypertension Status: Chronic Assessment and Plan: * reasonable control at this time * noted some episodic relative hypotension * losartan on hold * other BP medications with parameters * wean off minoxidil if possible (8) Diabetes: Code(s): E11.9 - Type 2 diabetes mellitus without complications Status: Chronic Assessment and Plan: * follow accu-cheks * glycemic control per hospitalist Will continue to follow. L Subjective Date/time seen: 09/24/25 13:55 Interval history: Follow-up for acute kidney injury/acute renal failure on chronic kidney disease. Overall, continues to do reasonably well -- renal function/creatinine continues to improve despite use of PRN IV diuretic therapy; tolerating IV antibiotic therapy; no other acute complaints voiced on my viist. Exam 2 Narrative: General: elderly but WD/WN female in NAD Heart: normal S1 and S2; no rub Lungs: clear anteriorly Abdomen: soft, nontender, nondistended, positive bowel sounds Extremities: no cyanosis or clubbing; trace edema Skin: no rash; buttocks wound present (dressings in place) Objective Data Vital Signs Vital Signs: Vital Signs Temp Pulse Resp BP Pulse Ox O2 Del Method 09/24/25 13:49 98.1 F 88 16 120/47 L 98 09/24/25 09:58 62 09/24/25 08:00 Room Air 09/24/25 04:37 98.2 F 59 L 18 126/53 L 96 09/23/25 21:06 98.4 F 75 14 87/57 L 96 Intake/Output Intake/Output: Intake & Output 09/21/25 09/22/25 09/23/25 09/24/25 23:59 23:59 23:59 23:59 Intake Total 8899 7848 1004 1593 Output Total 580 310 7628 725 Balance 690 717 -782 651 Meds/Results Medications: Active Medications Generic Name Dose Route Start Last Admin Trade Name Freq PRN Reason Stop Dose Admin Aspirin 81 mg 09/21/25 09:00 09/24/25 09:58 Aspirin 81 Mg Chewable Tablet PO 81 mg DAILY JACQUI Administration Atorvastatin Calcium 80 mg 09/21/25 09:00 09/24/25 09:58 Atorvastatin 40 Mg Tablet PO 80 mg DAILY JACQUI Administration Citalopram Hydrobromide 20 mg 09/21/25 09:00 09/24/25 09:59 Citalopram Hydrobromide 20 Mg Tablet PO 20 mg DAILY JACQUI Administration Collagenase 1 applic 09/20/25 21:00 09/24/25 10:00 Collagenase Oint 30 Gm Tube TOPICAL 1 applic Q12HR JACQUI Administration Dextrose 12.5 gm 09/20/25 15:56 Dextrose 50% 25 Gm/50 Ml Syringe IV PUSH PRN PRN Hypoglycemia Protocol Ferrous Sulfate 325 mg 09/21/25 09:00 09/24/25 17:09 Ferrous Sulfate 325 Mg Tablet PO 325 mg BID JACQUI Administration Glucagon 1 mg 09/20/25 15:56 Glucagon For Inj 1 Mg Vial IM PRN PRN Hypoglycemia Protocol Glucose 15 gm 09/20/25 15:56 Glucose Oral Gel 15 Gm Of Glucse In 37.5 Gm Tube PO PRN PRN Hypoglycemia Protocol Heparin Sodium (Porcine) 5,000 units 09/20/25 22:00 09/24/25 14:12 Heparin Sodium 5,000 Units/Ml Vial SUB-Q 5,000 units Q8HR JACQUI Administration Dextrose 1,000 mls @ 100 mls/hr 09/20/25 15:56 Dextrose 5% 1,000 Ml IVPB PRN PRN Hypoglycemia Protocol Ceftriaxone Sodium 1 gm/ 50 mls @ 100 mls/hr 09/23/25 14:00 09/24/25 14:12 Sodium Chloride IVPB 100 mls/hr Q24H JACQUI Administration Insulin Aspart 2 - 5 units 09/20/25 17:00 09/24/25 17:08 Insulin Aspart (*Bkc) 100 Units/Ml SUB-Q Not Given TIDWM JACQUI Protocol Isosorbide Mononitrate 30 mg 09/21/25 09:00 09/24/25 09:59 Isosorbide Mononitrate 30 Mg Tab.Er.24h PO 30 mg DAILY JACQUI Administration Metoprolol Tartrate 50 mg 09/20/25 21:00 09/24/25 09:58 Metoprolol Tartrate 50 Mg Tab PO 50 mg Q12HR JACQUI Administration Minoxidil 5 mg 09/20/25 19:45 09/24/25 17:09 Minoxidil 2.5 Mg Tablet PO 5 mg BID JACQUI Administration Radiology Results: ITS Impressions Chest X-Ray 09/20/25 12:14 Impression: CHF Pelvis CT 09/20/25 14:19 IMPRESSION: 1. No significant change in 12 degrees lower lumbar levoscoliosis with severe spondylosis. 2. No evident sacral decubitus ulcer, abscess or acute intra-abdominal pelvic process. Renal Ultrasound 09/22/25 14:25 IMPRESSION: 1. 7 mm calcification at the mid right kidney which could represent a nonobstructing renal stone or atherosclerotic calcification. No hydronephrosis at either kidney. Labs Labs: Laboratory Tests 09/24/25 05:37 09/24/25 05:36 Calcium 7.7 L Magnesium 2.2 Microbiology 09/22/25 13:14 Blood Blood Culture - Preliminary 09/22/25 13:19 Blood Blood Culture - Preliminary 09/20/25 14:52 Blood Blood Culture - Preliminary Proteus mirabilis 09/20/25 11:12 Blood Blood Culture - Final Proteus mirabilis
[2025-09-24 13:59] VITALS: BP 120/47; PULSE 88; RESP 16; TEMP 36.7; O2SAT 98
[2025-09-24] MEDS: cefTRIAXone 1 GM in SODIUM CHLORIDE 0.9% IV 50 ML 100 ML IVPB (14:12)
--- NOTE | 2025-09-24 18:50 | PC.NURSE ---
This RN, Daina Molina, has reviewed documentation by NIMISHA Davila, for [id number] 09/24/25 and agree with the findings.
[2025-09-24 20:40] VITALS: BP 120/51; PULSE 65; RESP 18; TEMP 36.7; O2SAT 100
[2025-09-25 04:43] VITALS: BP 112/41; PULSE 86; RESP 16; TEMP 36.4; O2SAT 98
[2025-09-25 06:04] LABS: Hematocrit 24.2 % (37.0-47.0); Hemoglobin 7.6 g/dL (12.0-15.0); Mean Corpuscular HGB Conc 31.4 g/dl (32-36); Mean Corpuscular Hemoglobin 27.5 pg (26-34); Mean Corpuscular Volume 87.7 fl (80-100); Platelet Count Result 156 k/mm3 (150-375); Red Blood Count 2.76 M/mm3 (4.2-5.4); White Blood Count 10.2 K/mm3 (4.5-10.0)
[2025-09-25 06:27] LABS: Albumin Level 2.3 g/dL (3.5-5.1); Anion Gap 5 mmol/L (4-12); Blood Urea Nitrogen 72 mg/dL (7-17); Calcium 7.6 mg/dL (8.4-10.2); Carbon Dioxide 21 mmol/L (22-30); Chloride 106 mmol/L (98-107); Estimated CRCL calculation 13 ml/min; Estimated Glomerular Filt Rate 13; Glucose 101 mg/dL (65-110); Magnesium 2.3 mg/dL (1.6-2.3); Potassium 3.3 mmol/L (3.4-5.0); Sodium 132 mmol/L (137-145)
[2025-09-25] MEDS: FERROUS SULFATE 325 MG TABLET PO ×2 (08:59→17:57)
[2025-09-25] MEDS: ASPIRIN 81 MG CHEWABLE TABLET PO (08:59)
[2025-09-25] MEDS: ATORVASTATIN 40 MG TABLET 80 MG PO (08:59)
[2025-09-25] MEDS: POTASSIUM CHLORIDE 20 MEQ ER TABLET 40 MEQ PO (08:59)
[2025-09-25 09:00] VITALS: PULSE 88
[2025-09-25] MEDS: ISOSORBIDE MONONITRATE 30 MG TAB.ER.24H PO (09:00)
[2025-09-25] MEDS: CITALOPRAM HYDROBROMIDE 20 MG TABLET PO (09:00)
[2025-09-25] MEDS: METOPROLOL TARTRATE 50 MG TAB PO ×2 (09:00→21:03)
[2025-09-25] MEDS: COLLAGENASE OINT 30 GM TUBE 1 APPLIC TOPICAL ×2 (09:10→21:04)
--- NOTE | 2025-09-25 12:05 | PM.IMPN ---
Progress Note: A&P Assessment and Plan (1) Chronic kidney disease, stage 4 (severe): Code(s): N18.4 - Chronic kidney disease, stage 4 (severe) Status: Chronic (2) Unstageable pressure ulcer of sacral region: Code(s): L89.150 - Pressure ulcer of sacral region, unstageable Status: Acute Plan Unstageable sacral decubitus ulcer Pansensitive Proteus bacteremia likely from decubitus ulcer -patient a large pressure ulcer 6x7 inches -appreciate general surgical consultation: non-operative management with antibiotics, will continue local wound care -pressure relieving measures -blood cultures aerobic and anaerobic bottles growing pansensitive Proteus mirabilis, repeat blood cultures from 09/22 NGTD -antibiotics: Cefepime, Flagyl -> rocephin 09/23- -improvement of leukocytosis 18k->>10k -consulted ID: Recommendation for Rocephin -echocardiogram: EF >70%, severe concentric left ventricle hypertrophy, normal right ventricle size and function -PT and OT consulted for weakness -source of Proteus bacteremia is most likely the sacral ulcer at this time. patient may need outpatient colonoscopy Acute kidney injury on CKD 4 Hypervolemic hyponatremia -his creatinine slightly improved from 5.4-4.92->>4.0-> 3.44 after a dose of bumex, baseline is closer to 2.3-2.9 -continue monitor renal function -held losartan -consulted nephrology Dr. Granados to help assess volume status and consideration for diuresis: Intermittent doses of diuretic appear to be helping, bumex 1mg IV given 09/24. d/w nephrology -sodium 132, improved and stable -replacing potassium with the diureticcs: Potassium 3.3 given 40 mEq KCL Chronic conditions -hyperlipidemia, CAD: Statin, aspirin, Imdur, beta-caitlyn, held Arb -depression: Citalopram -iron deficiency anemia: Ferrous sulfate supplement, hemoglobin 7.6, appears to be stable, downtrended slightly -type 2 diabetes: Sliding scale insulin, Accu-Cheks a.c. HS, hypoglycemia protocol -essential hypertension: home regimen losartan, metoprolol, minoxidil Diet: Renal diet with supplement DVT prophylaxis: SubQ heparin Code status: Full code Disposition: SNF 2-3 days Time Spent With Patient Time: 35 minutes Subjective Date/time seen: 09/25/25 12:05 Interval history: Patient seen and examined. I saw patient's sacral wound when nurses were cleaning patient. It appears to be healing well. We will continue with local wound care. White blood count is stable with the Rocephin for Proteus. Repeat blood cultures from 09/22 are negative. Creatinine continues to improve with a trial of Bumex dose by barge hand. I will follow up with Nephrology for ongoing management of CKD. Hemoglobin downtrended slightly to 7.6. She denies fever, chills, nausea vomiting diarrhea. Anticipate discharge on Saturday. Review of Systems Review of Systems: 10 point ROS complete, negative other than what is specified in HPI. Exam Narrative: - GENERAL: Pleasant elder woman in no acute distress - EYES: EOMI. Anicteric. - HENT: moist oral mucosa, edentulous - LUNGS: Clear to auscultation bilaterally - CARDIOVASCULAR: Regular rate and rhythm. - ABDOMEN: Soft, non-tender and non-distended. Sacral wound unstageable, appears to be stable, improving - EXTREMITIES: Peripheral pulses 2+. - NEUROLOGIC: No focal neurological deficits. CN II-XII grossly intact. - PSYCHIATRIC: Awake, Alert. Appropriate mood and affect. In good spirits Objective Data Vital Signs Vital Signs: Vital Signs - 24 hr 09/24/25 13:59 09/24/25 20:40 09/25/25 04:43 Temperature 36.7 C 36.7 C 36.4 C L Pulse Rate 88 65 86 Respiratory Rate 16 18 16 Blood Pressure 120/47 L 120/51 L 112/41 L Pulse Oximetry 98 100 98 Oxygen Delivery 09/25/25 08:00 09/25/25 09:00 Temperature Pulse Rate 88 Respiratory Rate Blood Pressure Pulse Oximetry Oxygen Delivery Room Air Intake/Output Intake/Output: Intake & Output 09/22/25 09/23/25 09/24/25 09/25/25 23:59 23:59 23:59 23:59 Intake Total 1438 1004 1643 360 Output Total 750 1225 725 375 Balance 688 -269 918 -15 Meds/Results Medications: Active Medications Generic Name Dose Route Start Last Admin Trade Name Freq PRN Reason Stop Dose Admin Aspirin 81 mg 09/21/25 09:00 09/25/25 08:59 Aspirin 81 Mg Chewable Tablet PO 81 mg DAILY JACQUI Administration Atorvastatin Calcium 80 mg 09/21/25 09:00 09/25/25 08:59 Atorvastatin 40 Mg Tablet PO 80 mg DAILY JACQUI Administration Citalopram Hydrobromide 20 mg 09/21/25 09:00 09/25/25 09:00 Citalopram Hydrobromide 20 Mg Tablet PO 20 mg DAILY JACQUI Administration Collagenase 1 applic 09/20/25 21:00 09/25/25 09:10 Collagenase Oint 30 Gm Tube TOPICAL 1 applic Q12HR JACQUI Administration Dextrose 12.5 gm 09/20/25 15:56 Dextrose 50% 25 Gm/50 Ml Syringe IV PUSH PRN PRN Hypoglycemia Protocol Ferrous Sulfate 325 mg 09/21/25 09:00 09/25/25 08:59 Ferrous Sulfate 325 Mg Tablet PO 325 mg BID JACQUI Administration Glucagon 1 mg 09/20/25 15:56 Glucagon For Inj 1 Mg Vial IM PRN PRN Hypoglycemia Protocol Glucose 15 gm 09/20/25 15:56 Glucose Oral Gel 15 Gm Of Glucse In 37.5 Gm Tube PO PRN PRN Hypoglycemia Protocol Heparin Sodium (Porcine) 5,000 units 09/20/25 22:00 09/25/25 05:27 Heparin Sodium 5,000 Units/Ml Vial SUB-Q 5,000 units Q8HR JACQUI Administration Dextrose 1,000 mls @ 100 mls/hr 09/20/25 15:56 Dextrose 5% 1,000 Ml IVPB PRN PRN Hypoglycemia Protocol Ceftriaxone Sodium 1 gm/ 50 mls @ 100 mls/hr 09/23/25 14:00 09/24/25 14:42 Sodium Chloride IVPB Infused Q24H JACQUI Infusion Insulin Aspart 2 - 5 units 09/20/25 17:00 09/25/25 08:39 Insulin Aspart (*Bkc) 100 Units/Ml SUB-Q Not Given TIDWM [facility] Protocol Isosorbide Mononitrate 30 mg 09/21/25 09:00 09/25/25 09:00 Isosorbide Mononitrate 30 Mg Tab.Er.24h PO 30 mg DAILY JACQUI Administration Metoprolol Tartrate 50 mg 09/20/25 21:00 09/25/25 09:00 Metoprolol Tartrate 50 Mg Tab PO 50 mg Q12HR JACQUI Administration Minoxidil 5 mg 09/20/25 19:45 09/25/25 08:59 Minoxidil 2.5 Mg Tablet PO 5 mg BID JACQUI Administration Radiology Results: ITS Impressions Chest X-Ray 09/20/25 12:14 Impression: CHF Pelvis CT 09/20/25 14:19 IMPRESSION: 1. No significant change in 12 degrees lower lumbar levoscoliosis with severe spondylosis. 2. No evident sacral decubitus ulcer, abscess or acute intra-abdominal pelvic process. Renal Ultrasound 09/22/25 14:25 IMPRESSION: 1. 7 mm calcification at the mid right kidney which could represent a nonobstructing renal stone or atherosclerotic calcification. No hydronephrosis at either kidney. Labs Labs: Laboratory Results - last 24 hr 09/24/25 09/24/25 09/25/25 16:41 20:38 04:48 WBC RBC Hgb Hct MCV MCH MCHC RDW Plt Count MPV Sodium Potassium Chloride Carbon Dioxide Anion Gap BUN Creatinine Estim Creat Clear Calc Estimated GFR Glucose POC Capillary Glucose 116 H 169 H 114 H Calcium Phosphorus Magnesium Albumin 09/25/25 09/25/25 05:26 07:44 WBC 10.2 H RBC 2.76 L Hgb 7.6 L Hct 24.2 L MCV 87.7 MCH 27.5 MCHC 31.4 L RDW 15.6 H Plt Count 156 MPV 10.1 Sodium 132 L Potassium 3.3 L Chloride 106 Carbon Dioxide 21 L Anion Gap 5 BUN 72 H Creatinine 3.44 H Estim Creat Clear Calc 13 Estimated GFR 13 L Glucose 101 POC Capillary Glucose 108 H Calcium 7.6 L Phosphorus 3.3 Magnesium 2.3 Albumin 2.3 L
--- NOTE | 2025-09-25 13:33 | P.PNNP_ITS ---
Progress Note: A&P Assessment and Plan (1) Acute kidney injury: Code(s): N17.9 - Acute kidney failure, unspecified Status: Acute Assessment and Plan: * slow and steady improvement * as noted on admission (creatinine 5.4mg/dl) * however, has been slowly improving since ... * suspect multifactorial etiology: * infection/sepsis (sacral deubitus ulcer and bacteremia) * prerenal factors * ARB use prior to admission * diuretic use prior to admission * other(?) * evaluation to date noted: * renal ultrasound w/o obstruction * urine electrolytes prerenal * urine eosinophils negative * moderate proteinuria (960mg) * CPK mildly elevated (but not enough to affect kidney function) * follow trend of repeat labs and UOP (2) Stage 4 chronic kidney disease: Code(s): N18.4 - Chronic kidney disease, stage 4 (severe) Status: Chronic Assessment and Plan: * baseline creatinine seems to run ~ 2.3 - 2.9mg/dl in the last year * presumably due to hypertension, diabetes, vascular disease, CHF + need for diuretics, and age-related change * recently re-established care with Dr. Michael for ongoing CKD management (3) Sacral decubitus ulcer: Code(s): L89.159 - Pressure ulcer of sacral region, unspecified stage Status: Acute Assessment and Plan: * as noted on admission * unstageable * General Surgery recommendations noted: * stable * non-operative management * continue dressing changes * pressure relieving measures * on antibiotics * ongoing wound care (4) Bacteremia: Code(s): R78.81 - Bacteremia Status: Acute Assessment and Plan: * blood cultures (on 09/20) with Proteus mirabalis * repeat cultures(on 09/22) with no growth * suspect source = #3 * Infectious Disease following * on antibiotics (5) Anemia: Code(s): D64.9 - Anemia, unspecified Status: Acute Assessment and Plan: * acute on chronic * likely due to ROOSEVELT, CKD, and acute illness * not a candidate for IV iron given infection/bacteremia * follows with Hematology for KENIHSA administration * follow trend of H/H (6) CHF (congestive heart failure): Qualifiers: Heart failure type: unspecified Heart failure chronicity: chronic Q ualified Code(s): I50.9 - Heart failure, unspecified Code(s): I50.9 - Heart failure, unspecified Status: Chronic Assessment and Plan: * known history of diastolic heart failure * however, last Echo (09/21) noted: * left ventricle is normal in size with hyperdynamic systolic function * severe concentric left ventricular hypertrophy * left ventricular ejection fraction is visually greater than 70% * right ventricle is normal in size and systolic function * trace mitral regurgitation * trace tricuspid regurgitation * no evidence of exacerbation * PRN IV diuretics for now * likely resume oral diuretics closer to discharge (7) Hypertension: Qualifiers: Hypertension type: primary hypertension Qualified Code(s): I10 - Essential (primary) hypertension Code(s): I10 - Essential (primary) hypertension Status: Chronic Assessment and Plan: * reasonable control at this time * noted some episodic relative hypotension * losartan on hold * other BP medications with parameters * wean off minoxidil if possible (8) Diabetes: Code(s): E11.9 - Type 2 diabetes mellitus without complications Status: Chronic Assessment and Plan: * follow accu-cheks * glycemic control per hospitalist Will continue to follow. L Subjective Date/time seen: 09/25/25 13:33 Interval history: Follow-up for acute kidney injury/acute renal failure on chronic kidney disease. Sacral decubitus ulcer seems to be healing reasonably well per nursing staff (during noted dressing changes); no other issues/events overnight or earlier this morning; overall, feeling quite well. Exam 2 Narrative: General: elderly but WD/WN female in NAD Heart: normal S1 and S2; no rub Lungs: clear anteriorly Abdomen: soft, nontender, nondistended, positive bowel sounds Extremities: no cyanosis or clubbing; trace edema Skin: no nodules; buttocks wound present (dressings in place) Objective Data Vital Signs Vital Signs: Vital Signs Temp Pulse Resp BP Pulse Ox O2 Del Method 09/25/25 13:00 98.5 F 64 18 133/53 L 98 09/25/25 09:00 88 09/25/25 08:00 Room Air 09/25/25 04:43 97.5 F L 86 16 112/41 L 98 09/24/25 20:40 98.1 F 65 18 120/51 L 100 Intake/Output Intake/Output: Intake & Output 09/22/25 09/23/25 09/24/25 09/25/25 23:59 23:59 23:59 23:59 Intake Total 1438 1004 1643 647 Output Total 375 8864 725 604 Balance 911 -257 830 122 Meds/Results Medications: Active Medications Generic Name Dose Route Start Last Admin Trade Name Freq PRN Reason Stop Dose Admin Aspirin 81 mg 09/21/25 09:00 09/25/25 08:59 Aspirin 81 Mg Chewable Tablet PO 81 mg DAILY JACQUI Administration Atorvastatin Calcium 80 mg 09/21/25 09:00 09/25/25 08:59 Atorvastatin 40 Mg Tablet PO 80 mg DAILY JACQUI Administration Citalopram Hydrobromide 20 mg 09/21/25 09:00 09/25/25 09:00 Citalopram Hydrobromide 20 Mg Tablet PO 20 mg DAILY JACQUI Administration Collagenase 1 applic 09/20/25 21:00 09/25/25 09:10 Collagenase Oint 30 Gm Tube TOPICAL 1 applic Q12HR JACQUI Administration Dextrose 12.5 gm 09/20/25 15:56 Dextrose 50% 25 Gm/50 Ml Syringe IV PUSH PRN PRN Hypoglycemia Protocol Ferrous Sulfate 325 mg 09/21/25 09:00 09/25/25 08:59 Ferrous Sulfate 325 Mg Tablet PO 325 mg BID JACQUI Administration Glucagon 1 mg 09/20/25 15:56 Glucagon For Inj 1 Mg Vial IM PRN PRN Hypoglycemia Protocol Glucose 15 gm 09/20/25 15:56 Glucose Oral Gel 15 Gm Of Glucse In 37.5 Gm Tube PO PRN PRN Hypoglycemia Protocol Heparin Sodium (Porcine) 5,000 units 09/20/25 22:00 09/25/25 14:54 Heparin Sodium 5,000 Units/Ml Vial SUB-Q 5,000 units Q8HR JACQUI Administration Dextrose 1,000 mls @ 100 mls/hr 09/20/25 15:56 Dextrose 5% 1,000 Ml IVPB PRN PRN Hypoglycemia Protocol Ceftriaxone Sodium 1 gm/ 50 mls @ 100 mls/hr 09/23/25 14:00 09/25/25 15:24 Sodium Chloride IVPB Infused Q24H JACQUI Infusion Insulin Aspart 2 - 5 units 09/20/25 17:00 09/25/25 17:09 Insulin Aspart (*Bkc) 100 Units/Ml SUB-Q Not Given TIDWM JACQUI Protocol Isosorbide Mononitrate 30 mg 09/21/25 09:00 09/25/25 09:00 Isosorbide Mononitrate 30 Mg Tab.Er.24h PO 30 mg DAILY JACQUI Administration Metoprolol Tartrate 50 mg 09/20/25 21:00 09/25/25 09:00 Metoprolol Tartrate 50 Mg Tab PO 50 mg Q12HR JACQUI Administration Minoxidil 5 mg 09/20/25 19:45 09/25/25 08:59 Minoxidil 2.5 Mg Tablet PO 5 mg BID JACQUI Administration Radiology Results: ITS Impressions Chest X-Ray 09/20/25 12:14 Impression: CHF Pelvis CT 09/20/25 14:19 IMPRESSION: 1. No significant change in 12 degrees lower lumbar levoscoliosis with severe spondylosis. 2. No evident sacral decubitus ulcer, abscess or acute intra-abdominal pelvic process. Renal Ultrasound 09/22/25 14:25 IMPRESSION: 1. 7 mm calcification at the mid right kidney which could represent a nonobstructing renal stone or atherosclerotic calcification. No hydronephrosis at either kidney. Labs Labs: Laboratory Tests 09/25/25 05:26 09/25/25 05:26 Calcium 7.6 L Phosphorus 3.3 Magnesium 2.3 Albumin 2.3 L Microbiology 09/22/25 13:14 Blood Blood Culture - Preliminary 09/22/25 13:19 Blood Blood Culture - Preliminary 09/20/25 14:52 Blood Blood Culture - Preliminary Proteus mirabilis
[2025-09-25 14:00] VITALS: BP 133/53; PULSE 64; RESP 18; TEMP 36.9; O2SAT 98
[2025-09-25] MEDS: cefTRIAXone 1 GM in SODIUM CHLORIDE 0.9% IV 50 ML 100 ML IVPB (14:54)
--- NOTE | 2025-09-25 16:10 | PC.NURSE ---
This RN, Dania Molina, has reviewed assessment documentation by Marilyn Fields, NIMISHA, and agree with the findings. 09/25/25.
[2025-09-25] MEDS: BUMETANIDE INJ 1 MG/4 ML VIAL IV PUSH (17:59)
[2025-09-25 20:08] VITALS: BP 136/58; PULSE 74; RESP 16; TEMP 36.7; O2SAT 99
[2025-09-26 04:18] VITALS: BP 131/55; PULSE 70; RESP 18; TEMP 36.5; O2SAT 100
[2025-09-26 06:18] LABS: Hematocrit 25.1 % (37.0-47.0); Hemoglobin 7.8 g/dL (12.0-15.0); Immature Granulocyte Percent A 1.3 % (0-0.5); Lymphocytes Absolute Auto 1.02 K/mm3 (0.9-3.2); Mean Corpuscular HGB Conc 31.1 g/dl (32-36); Mean Corpuscular Hemoglobin 27.4 pg (26-34); Mean Corpuscular Volume 88.1 fl (80-100); Nucleated Red Blood Cells Absolute Auto 0.000 K/mm3 (0.0-0.012); Nucleated Red Blood Cells Perc 0.0 % (0.0-0.2); Platelet Count Result 173 k/mm3 (150-375); Red Blood Count 2.85 M/mm3 (4.2-5.4); White Blood Count 10.9 K/mm3 (4.5-10.0)
[2025-09-26 06:28] LABS: Albumin Level 2.3 g/dL (3.5-5.1); Anion Gap 4 mmol/L (4-12); Blood Urea Nitrogen 77 mg/dL (7-17); Calcium 7.7 mg/dL (8.4-10.2); Carbon Dioxide 22 mmol/L (22-30); Chloride 107 mmol/L (98-107); Estimated CRCL calculation 15 ml/min; Estimated Glomerular Filt Rate 16; Glucose 107 mg/dL (65-110); Potassium 3.8 mmol/L (3.4-5.0); Sodium 133 mmol/L (137-145)
[2025-09-26 09:51] VITALS: PULSE 70
[2025-09-26] MEDS: FERROUS SULFATE 325 MG TABLET PO ×2 (09:51→17:01)
[2025-09-26] MEDS: ASPIRIN 81 MG CHEWABLE TABLET PO (09:51)
[2025-09-26] MEDS: ISOSORBIDE MONONITRATE 30 MG TAB.ER.24H PO (09:51)
[2025-09-26] MEDS: METOPROLOL TARTRATE 50 MG TAB PO (09:51)
[2025-09-26] MEDS: CITALOPRAM HYDROBROMIDE 20 MG TABLET PO (09:51)
[2025-09-26] MEDS: ATORVASTATIN 40 MG TABLET 80 MG PO (09:51)
[2025-09-26] MEDS: BUMETANIDE 1 MG TABLET PO (09:55)
[2025-09-26] MEDS: COLLAGENASE OINT 30 GM TUBE 1 APPLIC TOPICAL ×2 (09:56→21:55)
--- NOTE | 2025-09-26 12:45 | P.PNIM_ITS ---
Progress Note: A&P Assessment and Plan (1) Chronic kidney disease, stage 4 (severe): Code(s): N18.4 - Chronic kidney disease, stage 4 (severe) Status: Chronic (2) Unstageable pressure ulcer of sacral region: Code(s): L89.150 - Pressure ulcer of sacral region, unstageable Status: Acute Plan Unstageable sacral decubitus ulcer Pansensitive Proteus bacteremia likely from decubitus ulcer -patient a large pressure ulcer 6x7 inches -appreciate general surgical consultation: non-operative management with antibiotics, will continue local wound care -pressure relieving measures -blood cultures aerobic and anaerobic bottles growing pansensitive Proteus mirabilis, repeat blood cultures from 09/22 NGTD -antibiotics: Cefepime, Flagyl -> rocephin 09/23- -improvement of leukocytosis 18k->>10.9k -consulted ID: Recommendation for Rocephin -echocardiogram: EF >70%, severe concentric left ventricle hypertrophy, normal right ventricle size and function -PT and OT consulted for weakness -source of Proteus bacteremia is most likely the sacral ulcer at this time. patient may need outpatient colonoscopy Acute kidney injury on CKD 4 Hypervolemic hyponatremia -Cr improved from 5.4-4.92->2.92 with daily pushes of bumex, baseline is closer to 2.3-2.9 -continue monitor renal function -held losartan -consulted nephrology Dr. Granados to help assess volume status and consideration for diuresis: Intermittent doses of diuretic appear to be helping, nephrology has been giving daily bumex -sodium 133, improved and stable -replacing potassium with the diureticcs: Potassium 3.8 Chronic conditions -hyperlipidemia, CAD: Statin, aspirin, Imdur, beta-caitlyn, held Arb -depression: Citalopram -iron deficiency anemia: Ferrous sulfate supplement, hemoglobin 7.8, appears to be stable -type 2 diabetes: Sliding scale insulin, Accu-Cheks a.c. HS, hypoglycemia protocol -essential hypertension: home regimen losartan, metoprolol, minoxidil Diet: Renal diet with supplement DVT prophylaxis: SubQ heparin Code status: Full code Disposition: SNF tomorrow Time Spent With Patient Time: 35 minutes Subjective Date/time seen: 09/26/25 12:45 Interval history: Patient seen examined patient well known complaints. Patient has fever, chills, nausea vomiting diarrhea. Creatinine improved to 2.92, she has been getting daily Bumex pushes. Other labs are stable. Anticipate discharge tomorrow. Review of Systems Review of Systems: 10 point ROS complete, negative other th an what is specified in HPI. Exam Narrative: - GENERAL: Pleasant elder woman in no a cute distress - EYES: EOMI. Anicteric. - HENT: dry oral mucosa, edentulous - LUNGS: Clear to auscultation bilateral ly - CARDIOVASCULAR: Regular rate and rhyth m. - ABDOMEN: Soft, non-tender and non-dist ended. Sacral wound unstageable, ap pears to be stable, improving - EXTREMITIES: Peripheral pulses 2+. - NEUROLOGIC: No focal neurological defi cits. CN II-XII grossly intact. - PSYCHIATRIC: Awake, Alert. Appropriate mood and affect. In good spirits Objective Data Vital Signs Vital Signs: Vital Signs - 24 hr 09/25/25 14:00 09/25/25 20:00 09/25/25 20:08 Temperature 36.9 C 36.7 C Pulse Rate 64 74 Respiratory Rate 18 16 Blood Pressure 133/53 L 136/58 L Pulse Oximetry 98 99 Oxygen Delivery Room Air 09/26/25 04:18 09/26/25 08:00 09/26/25 09:51 Temperature 36.5 C Pulse Rate 70 70 Respiratory Rate 18 Blood Pressure 131/55 L Pulse Oximetry 100 Oxygen Delivery Room Air Intake/Output Intake/Output: Intake & Output 09/23/25 09/24/25 09/25/25 09/26/25 23:59 23:59 23:59 23:59 Intake Total 1004 1643 647 240 Output Total 1225 725 825 360 Balance -221 918 -178 -120 Meds/Results Medications: Active Medications Generic Name Dose Route Start Last Admin Trade Name Freq PRN Reason Stop Dose Admin Aspirin 81 mg 09/21/25 09:00 09/26/25 09:51 Aspirin 81 Mg Chewable Tablet PO 81 mg DAILY JACQUI Administration Atorvastatin Calcium 80 mg 09/21/25 09:00 09/26/25 09:51 Atorvastatin 40 Mg Tablet PO 80 mg DAILY JACQUI Administration Bumetanide 1 mg 09/26/25 09:00 09/26/25 09:55 Bumetanide 1 Mg Tablet PO 1 mg DAILY JACQUI Administration Citalopram Hydrobromide 20 mg 09/21/25 09:00 09/26/25 09:51 Citalopram Hydrobromide 20 Mg Tablet PO 20 mg DAILY JACQUI Administration Collagenase 1 applic 09/20/25 21:00 09/26/25 09:56 Collagenase Oint 30 Gm Tube TOPICAL 1 applic Q12HR JACQUI Administration Dextrose 12.5 gm 09/20/25 15:56 Dextrose 50% 25 Gm/50 Ml Syringe IV PUSH PRN PRN Hypoglycemia Protocol Ferrous Sulfate 325 mg 09/21/25 09:00 09/26/25 09:51 Ferrous Sulfate 325 Mg Tablet PO 325 mg BID JACQUI Administration Glucagon 1 mg 09/20/25 15:56 Glucagon For Inj 1 Mg Vial IM PRN PRN Hypoglycemia Protocol Glucose 15 gm 09/20/25 15:56 Glucose Oral Gel 15 Gm Of Glucse In 37.5 Gm Tube PO PRN PRN Hypoglycemia Protocol Heparin Sodium (Porcine) 5,000 units 09/20/25 22:00 09/26/25 06:15 Heparin Sodium 5,000 Units/Ml Vial SUB-Q 5,000 units Q8HR JACQUI Administration Dextrose 1,000 mls @ 100 mls/hr 09/20/25 15:56 Dextrose 5% 1,000 Ml IVPB PRN PRN Hypoglycemia Protocol Ceftriaxone Sodium 1 gm/ 50 mls @ 100 mls/hr 09/23/25 14:00 09/25/25 15:24 Sodium Chloride IVPB Infused Q24H JACQUI Infusion Insulin Aspart 2 - 5 units 09/20/25 17:00 09/26/25 12:28 Insulin Aspart (*Bkc) 100 Units/Ml SUB-Q Not Given TIDWM [facility] Protocol Isosorbide Mononitrate 30 mg 09/21/25 09:00 09/26/25 09:51 Isosorbide Mononitrate 30 Mg Tab.Er.24h PO 30 mg DAILY JACQUI Administration Metoprolol Tartrate 50 mg 09/20/25 21:00 09/26/25 09:51 Metoprolol Tartrate 50 Mg Tab PO 50 mg Q12HR JACQUI Administration Minoxidil 5 mg 09/20/25 19:45 09/26/25 09:51 Minoxidil 2.5 Mg Tablet PO 5 mg BID JACQUI Administration Radiology Results: ITS Impressions Chest X-Ray 09/20/25 12:14 Impression: CHF Pelvis CT 09/20/25 14:19 IMPRESSION: 1. No significant change in 12 degrees lower lumbar levoscoliosis with severe spondylosis. 2. No evident sacral decubitus ulcer, abscess or acute intra-abdominal pelvic process. Renal Ultrasound 09/22/25 14:25 IMPRESSION: 1. 7 mm calcification at the mid right kidney which could represent a nonobstructing renal stone or atherosclerotic calcification. No hydronephrosis at either kidney. Labs Labs: Laboratory Results - last 24 hr 09/25/25 09/25/25 09/26/25 16:30 20:11 05:51 WBC 10.9 H RBC 2.85 L Hgb 7.8 L Hct 25.1 L MCV 88.1 MCH 27.4 MCHC 31.1 L RDW 15.7 H Plt Count 173 MPV 10.1 Immature Gran % (Auto) 1.3 H Neut % (Auto) 75.9 H Lymph % (Auto) 9.4 L [place] % (Auto) 9.6 H Eos % (Auto) 3.3 Baso % (Auto) 0.5 Lymph # (Auto) 1.02 [place] # (Auto) 1.0 H Eos # (Auto) 0.4 H Baso # (Auto) 0.1 Abs Immat Gran (auto) 0.14 H Absolute Neuts (auto) 8.3 H Absolute Nucleated RBC 0.000 Nucleated RBC % 0.0 Sodium 133 L Potassium 3.8 Chloride 107 Carbon Dioxide 22 Anion Gap 4 BUN 77 H Creatinine 2.92 H Estim Creat Clear Calc 15 Estimated GFR 16 L Glucose 107 POC Capillary Glucose 137 H 166 H Calcium 7.7 L Phosphorus 2.5 Albumin 2.3 L 09/26/25 09/26/25 07:47 11:54 WBC RBC Hgb Hct MCV MCH MCHC RDW Plt Count MPV Immature Gran % (Auto) Neut % (Auto) Lymph % (Auto) [place] % (Auto) Eos % (Auto) Baso % (Auto) Lymph # (Auto) [place] # (Auto) Eos # (Auto) Baso # (Auto) Abs Immat Gran (auto) Absolute Neuts (auto) Absolute Nucleated RBC Nucleated RBC % Sodium Potassium Chloride Carbon Dioxide Anion Gap BUN Creatinine Estim Creat Clear Calc Estimated GFR Glucose POC Capillary Glucose 102 146 H Calcium Phosphorus Albumin
[2025-09-26 14:00] VITALS: BP 115/49; PULSE 99; RESP 18; TEMP 36.9; O2SAT 98
[2025-09-26] MEDS: cefTRIAXone 1 GM in SODIUM CHLORIDE 0.9% IV 50 ML 100 ML IVPB (14:00)
--- NOTE | 2025-09-26 14:08 | P.PNNP_ITS ---
Progress Note: A&P Assessment and Plan (1) Acute kidney injury: Code(s): N17.9 - Acute kidney failure, unspecified Status: Acute Assessment and Plan: * slow and steady improvement (if not back to baseline) * as noted on admission (creatinine 5.4mg/dl) * however, has been slowly improving since ... * suspect multifactorial etiology: * infection/sepsis (sacral decubitus ulcer and bacteremia) * prerenal factors * ARB use prior to admission * diuretic use prior to admission * other(?) * evaluation to date noted: * renal ultrasound w/o obstruction * urine electrolytes prerenal * urine eosinophils negative * moderate proteinuria (960mg) * CPK mildly elevated (but not enough to affect kidney function) * follow trend of repeat labs and UOP (2) Stage 4 chronic kidney disease: Code(s): N18.4 - Chronic kidney disease, stage 4 (severe) Status: Chronic Assessment and Plan: * baseline creatinine seems to run ~ 2.3 - 2.9mg/dl in the last year * presumably due to hypertension, diabetes, vascular disease, CHF + need for diuretics, and age-related change * recently re-established care with Dr. Michael for ongoing CKD management (3) Sacral decubitus ulcer: Code(s): L89.159 - Pressure ulcer of sacral region, unspecified stage Status: Acute Assessment and Plan: * as noted on admission * unstageable * General Surgery recommendations noted: * stable * non-operative management * continue dressing changes * pressure relieving measures * on antibiotics * ongoing wound care (4) Bacteremia: Code(s): R78.81 - Bacteremia Status: Acute Assessment and Plan: * blood cultures (on 09/20) with Proteus mirabalis * repeat cultures(on 09/22) with no growth * suspect source = #3 * Infectious Disease following * on antibiotics (5) Anemia: Code(s): D64.9 - Anemia, unspecified Status: Acute Assessment and Plan: * acute on chronic * likely due to ROOSEVELT, CKD, and acute illness * not a candidate for IV iron given infection/bacteremia * follows with Hematology for KENISHA administration * follow trend of H/H (6) CHF (congestive heart failure): Qualifiers: Heart failure type: unspecified Heart failure chronicity: chronic Q ualified Code(s): I50.9 - Heart failure, unspecified Code(s): I50.9 - Heart failure, unspecified Status: Chronic Assessment and Plan: * known history of diastolic heart failure * however, last Echo (09/21) noted: * left ventricle is normal in size with hyperdynamic systolic function * severe concentric left ventricular hypertrophy * left ventricular ejection fraction is visually greater than 70% * right ventricle is normal in size and systolic function * trace mitral regurgitation * trace tricuspid regurgitation * no evidence of exacerbation * PRN IV diuretics for now - change to oral diuretic today * likely resume oral diuretics closer to discharge (7) Hypertension: Qualifiers: Hypertension type: primary hypertension Qualified Code(s): I10 - Essential (primary) hypertension Code(s): I10 - Essential (primary) hypertension Status: Chronic Assessment and Plan: * reasonable control at this time * noted some episodic relative hypotension * losartan on hold * other BP medications with parameters * wean off minoxidil if possible (8) Diabetes: Code(s): E11.9 - Type 2 diabetes mellitus without complications Status: Chronic Assessment and Plan: * follow accu-cheks * glycemic control per hospitalist Will continue to follow. L Subjective Date/time seen: 09/26/25 14:08 Interval history: Follow-up for acute kidney injury/acute renal failure on chronic kidney disease. Ongoing improvement noted in clinical status with regard to infection/bacteremia, renal function/creatinine (back to baseline), as well as generalized weakness; no new issues or concerns voiced when seen; no apparent distress noted. Exam 2 Narrative: General: elderly but WD/WN female in NAD Heart: normal S1 and S2; no rub Lungs: clear anteriorly Abdomen: soft, nontender, nondistended, positive bowel sounds Extremities: no cyanosis or clubbing; trace edema Skin: warm and dry; sacal decubitus ulcer present (dressings in place) Objective Data Vital Signs Vital Signs: Vital Signs Temp Pulse Resp BP Pulse Ox O2 Del Method 09/26/25 14:00 98.5 F 99 18 115/49 L 98 09/26/25 09:51 70 09/26/25 08:00 Room Air 09/26/25 04:18 97.7 F 70 18 131/55 L 100 09/25/25 20:08 98.1 F 74 16 136/58 L 99 09/25/25 20:00 Room Air Intake/Output Intake/Output: Intake & Output 09/23/25 09/24/25 09/25/25 09/26/25 23:59 23:59 23:59 23:59 Intake Total 1004 1643 647 240 Output Total 1225 945 824 360 Balance -221 918 -178 -120 Meds/Results Medications: Active Medications Generic Name Dose Route Start Last Admin Trade Name Freq PRN Reason Stop Dose Admin Aspirin 81 mg 09/21/25 09:00 09/26/25 09:51 Aspirin 81 Mg Chewable Tablet PO 81 mg DAILY JACQUI Administration Atorvastatin Calcium 80 mg 09/21/25 09:00 09/26/25 09:51 Atorvastatin 40 Mg Tablet PO 80 mg DAILY JACQUI Administration Bumetanide 1 mg 09/26/25 09:00 09/26/25 09:55 Bumetanide 1 Mg Tablet PO 1 mg DAILY JACQUI Administration Citalopram Hydrobromide 20 mg 09/21/25 09:00 09/26/25 09:51 Citalopram Hydrobromide 20 Mg Tablet PO 20 mg DAILY JACQUI Administration Collagenase 1 applic 09/20/25 21:00 09/26/25 09:56 Collagenase Oint 30 Gm Tube TOPICAL 1 applic Q12HR JACQUI Administration Dextrose 12.5 gm 09/20/25 15:56 Dextrose 50% 25 Gm/50 Ml Syringe IV PUSH PRN PRN Hypoglycemia Protocol Ferrous Sulfate 325 mg 09/21/25 09:00 09/26/25 17:01 Ferrous Sulfate 325 Mg Tablet PO 325 mg BID JACQUI Administration Glucagon 1 mg 09/20/25 15:56 Glucagon For Inj 1 Mg Vial IM PRN PRN Hypoglycemia Protocol Glucose 15 gm 09/20/25 15:56 Glucose Oral Gel 15 Gm Of Glucse In 37.5 Gm Tube PO PRN PRN Hypoglycemia Protocol Heparin Sodium (Porcine) 5,000 units 09/20/25 22:00 09/26/25 17:01 Heparin Sodium 5,000 Units/Ml Vial SUB-Q 5,000 units Q8HR JACQUI Administration Dextrose 1,000 mls @ 100 mls/hr 09/20/25 15:56 Dextrose 5% 1,000 Ml IVPB PRN PRN Hypoglycemia Protocol Ceftriaxone Sodium 1 gm/ 50 mls @ 100 mls/hr 09/23/25 14:00 09/26/25 14:00 Sodium Chloride IVPB 100 mls/hr Q24H JACQUI Administration Insulin Aspart 2 - 5 units 09/20/25 17:00 09/26/25 17:02 Insulin Aspart (*Bkc) 100 Units/Ml SUB-Q Not Given TIDWM [facility] Protocol Isosorbide Mononitrate 30 mg 09/21/25 09:00 09/26/25 09:51 Isosorbide Mononitrate 30 Mg Tab.Er.24h PO 30 mg DAILY JACQUI Administration Metoprolol Tartrate 50 mg 09/20/25 21:00 09/26/25 09:51 Metoprolol Tartrate 50 Mg Tab PO 50 mg Q12HR JACQUI Administration Minoxidil 5 mg 09/20/25 19:45 09/26/25 17:01 Minoxidil 2.5 Mg Tablet PO 5 mg BID JACQUI Administration Radiology Results: ITS Impressions Chest X-Ray 09/20/25 12:14 Impression: CHF Pelvis CT 09/20/25 14:19 IMPRESSION: 1. No significant change in 12 degrees lower lumbar levoscoliosis with severe spondylosis. 2. No evident sacral decubitus ulcer, abscess or acute intra-abdominal pelvic process. Renal Ultrasound 09/22/25 14:25 IMPRESSION: 1. 7 mm calcification at the mid right kidney which could represent a nonobstructing renal stone or atherosclerotic calcification. No hydronephrosis at either kidney. Labs Labs: Laboratory Tests 09/26/25 05:51 09/26/25 05:51 Calcium 7.7 L Phosphorus 2.5 Albumin 2.3 L Microbiology 09/20/25 14:52 Blood Blood Culture - Final Proteus mirabilis 09/22/25 13:14 Blood Blood Culture - Preliminary 09/22/25 13:19 Blood Blood Culture - Preliminary
[2025-09-26 21:46] VITALS: BP 126/58; PULSE 101; RESP 18; TEMP 36.5; O2SAT 100
[2025-09-27 05:08] VITALS: BP 119/59; PULSE 102; RESP 16; TEMP 36.4; O2SAT 99
[2025-09-27 05:52] LABS: Hematocrit 26.6 % (37.0-47.0); Hemoglobin 8.5 g/dL (12.0-15.0); Immature Granulocyte Percent A 1.2 % (0-0.5); Lymphocytes Absolute Auto 0.96 K/mm3 (0.9-3.2); Mean Corpuscular HGB Conc 32.0 g/dl (32-36); Mean Corpuscular Hemoglobin 27.7 pg (26-34); Mean Corpuscular Volume 86.6 fl (80-100); Nucleated Red Blood Cells Absolute Auto 0.000 K/mm3 (0.0-0.012); Nucleated Red Blood Cells Perc 0.0 % (0.0-0.2); Platelet Count Result 196 k/mm3 (150-375); Red Blood Count 3.07 M/mm3 (4.2-5.4); White Blood Count 12.2 K/mm3 (4.5-10.0)
[2025-09-27 06:12] LABS: Albumin Level 2.5 g/dL (3.5-5.1); Anion Gap 6 mmol/L (4-12); Blood Urea Nitrogen 78 mg/dL (7-17); Calcium 8.1 mg/dL (8.4-10.2); Carbon Dioxide 22 mmol/L (22-30); Chloride 109 mmol/L (98-107); Estimated CRCL calculation 16 ml/min; Estimated Glomerular Filt Rate 17; Glucose 135 mg/dL (65-110); Magnesium 2.3 mg/dL (1.6-2.3); Potassium 3.9 mmol/L (3.4-5.0); Sodium 137 mmol/L (137-145)
[2025-09-27 09:08] VITALS: PULSE 100
[2025-09-27] MEDS: ASPIRIN 81 MG CHEWABLE TABLET PO (09:08)
[2025-09-27] MEDS: ATORVASTATIN 40 MG TABLET 80 MG PO (09:08)
[2025-09-27] MEDS: METOPROLOL TARTRATE 50 MG TAB PO (09:08)
[2025-09-27] MEDS: CITALOPRAM HYDROBROMIDE 20 MG TABLET PO (09:09)
[2025-09-27] MEDS: FERROUS SULFATE 325 MG TABLET PO ×2 (09:09→16:04)
[2025-09-27] MEDS: ISOSORBIDE MONONITRATE 30 MG TAB.ER.24H PO (09:09)
[2025-09-27] MEDS: BUMETANIDE 1 MG TABLET PO (09:09)
[2025-09-27] MEDS: COLLAGENASE OINT 30 GM TUBE 1 APPLIC TOPICAL (09:25)
--- NOTE | 2025-09-27 10:51 | P.PNNP_ITS ---
Progress Note: A&P Assessment and Plan (1) Acute kidney injury: Code(s): N17.9 - Acute kidney failure, unspecified Status: Acute Assessment and Plan: * improvemed (if not back to baseline) * as noted on admission (creatinine 5.4mg/dl) * however, has been slowly improving since ... * suspect multifactorial etiology: * infection/sepsis (sacral decubitus ulcer and bacteremia) * prerenal factors * ARB use prior to admission * diuretic use prior to admission * other(?) * evaluation to date noted: * renal ultrasound w/o obstruction * urine electrolytes prerenal * urine eosinophils negative * moderate proteinuria (960mg) * CPK mildly elevated (but not enough to affect kidney function) * follow trend of repeat labs and UOP (2) Stage 4 chronic kidney disease: Code(s): N18.4 - Chronic kidney disease, stage 4 (severe) Status: Chronic Assessment and Plan: * baseline creatinine seems to run ~ 2.3 - 2.9mg/dl in the last year * presumably due to hypertension, diabetes, vascular disease, CHF + need for diuretics, and age-related change * recently re-established care with Dr. Michael for ongoing CKD management (3) CHF (congestive heart failure): Qualifiers: Heart failure chronicity: chronic Heart failure type: unspecified Q ualified Code(s): I50.9 - Heart failure, unspecified Code(s): I50.9 - Heart failure, unspecified Status: Chronic Assessment and Plan: * known history of diastolic heart failure * however, last Echo (09/21) noted: * left ventricle is normal in size with hyperdynamic systolic function * severe concentric left ventricular hypertrophy * left ventricular ejection fraction is visually greater than 70% * right ventricle is normal in size and systolic function * trace mitral regurgitation * trace tricuspid regurgitation * no evidence of exacerbation * PRN IV diuretics for now - change to oral diuretic today * likely resume oral diuretics closer to discharge (4) Hypertension: Qualifiers: Hypertension type: primary hypertension Qualified Code(s): I10 - Essential (primary) hypertension Code(s): I10 - Essential (primary) hypertension Status: Chronic Assessment and Plan: * reasonable control at this time * noted some episodic relative hypotension * losartan on hold * other BP medications with parameters * wean off minoxidil if possible (5) Diabetes: Code(s): E11.9 - Type 2 diabetes mellitus without complications Status: Chronic Assessment and Plan: * follow accu-cheks * glycemic control per hospitalist Not opposed to discharge from renal perspective -- she can follow-up with Dr. Michael as already scheduled for ongoing management of her known CKD. Will continue to follow. L Subjective Date/time seen: 09/27/25 10:51 Interval history: Follow-up for acute kidney injury/acute renal failure on chronic kidney disease. Renal function/creatinine appears to be back to baseline; no acute complaints or problems voiced at the time of my visit; no other issues/events overnight or earlier this morning; no apparent distress to report. Exam 2 Narrative: General: elderly but WD/WN female in NAD Heart: normal S1 and S2; no rub Lungs: clear anteriorly Abdomen: soft, nontender, nondistended, positive bowel sounds Extremities: no cyanosis or clubbing; trace edema Skin: warm and intact; sacal decubitus ulcer present (dressings in place) Objective Data Vital Signs Vital Signs: Vital Signs Temp Pulse Resp BP Pulse Ox O2 Del Method 09/27/25 09:08 100 09/27/25 05:08 97.5 F L 102 H 16 119/59 L 99 09/26/25 21:46 97.7 F 101 H 18 126/58 L 100 09/26/25 20:00 Room Air 09/26/25 14:00 98.5 F 99 18 115/49 L 98 Intake/Output Intake/Output: Intake & Output 09/24/25 09/25/25 09/26/25 09/27/25 23:59 23:59 23:59 23:59 Intake Total 1643 647 600 Output Total 725 825 710 400 Balance 918 -178 -110 -400 Meds/Results Medications: Active Medications Generic Name Dose Route Start Last Admin Trade Name Freq PRN Reason Stop Dose Admin Aspirin 81 mg 09/21/25 09:00 09/27/25 09:08 Aspirin 81 Mg Chewable Tablet PO 81 mg DAILY JACQUI Administration Atorvastatin Calcium 80 mg 09/21/25 09:00 09/27/25 09:08 Atorvastatin 40 Mg Tablet PO 80 mg DAILY JACQUI Administration Bumetanide 1 mg 09/26/25 09:00 09/27/25 09:09 Bumetanide 1 Mg Tablet PO 1 mg DAILY JACQUI Administration Citalopram Hydrobromide 20 mg 09/21/25 09:00 09/27/25 09:09 Citalopram Hydrobromide 20 Mg Tablet PO 20 mg DAILY JACQUI Administration Collagenase 1 applic 09/20/25 21:00 09/26/25 21:55 Collagenase Oint 30 Gm Tube TOPICAL 1 applic Q12HR JACQUI Administration Dextrose 12.5 gm 09/20/25 15:56 Dextrose 50% 25 Gm/50 Ml Syringe IV PUSH PRN PRN Hypoglycemia Protocol Ferrous Sulfate 325 mg 09/21/25 09:00 09/27/25 09:09 Ferrous Sulfate 325 Mg Tablet PO 325 mg BID JACQUI Administration Glucagon 1 mg 09/20/25 15:56 Glucagon For Inj 1 Mg Vial IM PRN PRN Hypoglycemia Protocol Glucose 15 gm 09/20/25 15:56 Glucose Oral Gel 15 Gm Of Glucse In 37.5 Gm Tube PO PRN PRN Hypoglycemia Protocol Heparin Sodium (Porcine) 5,000 units 09/20/25 22:00 09/27/25 05:45 Heparin Sodium 5,000 Units/Ml Vial SUB-Q 5,000 units Q8HR JACUQI Administration Dextrose 1,000 mls @ 100 mls/hr 09/20/25 15:56 Dextrose 5% 1,000 Ml IVPB PRN PRN Hypoglycemia Protocol Ceftriaxone Sodium 1 gm/ 50 mls @ 100 mls/hr 09/23/25 14:00 09/26/25 14:00 Sodium Chloride IVPB 100 mls/hr Q24H JACQUI Administration Insulin Aspart 2 - 5 units 09/20/25 17:00 09/26/25 17:02 Insulin Aspart (*Bkc) 100 Units/Ml SUB-Q Not Given TIDWM JACQUI Protocol Isosorbide Mononitrate 30 mg 09/21/25 09:00 09/27/25 09:09 Isosorbide Mononitrate 30 Mg Tab.Er.24h PO 30 mg DAILY JACQUI Administration Metoprolol Tartrate 50 mg 09/20/25 21:00 09/27/25 09:08 Metoprolol Tartrate 50 Mg Tab PO 50 mg Q12HR JACQUI Administration Minoxidil 5 mg 09/20/25 19:45 09/27/25 09:08 Minoxidil 2.5 Mg Tablet PO 5 mg BID JACQUI Administration Radiology Results: ITS Impressions Chest X-Ray 09/20/25 12:14 Impression: CHF Pelvis CT 09/20/25 14:19 IMPRESSION: 1. No significant change in 12 degrees lower lumbar levoscoliosis with severe spondylosis. 2. No evident sacral decubitus ulcer, abscess or acute intra-abdominal pelvic process. Renal Ultrasound 09/22/25 14:25 IMPRESSION: 1. 7 mm calcification at the mid right kidney which could represent a nonobstructing renal stone or atherosclerotic calcification. No hydronephrosis at either kidney. Labs Labs: Laboratory Tests 09/27/25 05:28 09/27/25 05:28 Calcium 8.1 L Phosphorus 2.6 Magnesium 2.3 Albumin 2.5 L Microbiology 09/20/25 14:52 Blood Blood Culture - Final Proteus mirabilis
--- NOTE | 2025-09-27 11:30 | PCNFU ---
Nutrition Follow-Up Complete: Severe protein calorie malnutrition related to chronic inadequate intake in the setting of pressure injury, as evidenced by weight loss 15%/5 months; intakes <75% needs >1 month; unstageable pressure injury Goal:Meet estimated nutrition needs for wound support Pt progressing towards goal, continue with same goal Pt current nutrition is Renal, KOBY BID, Glucerna shakes TID. Nutrition recommendation: continue with current plan of care Last recorded weight is 79.8 kg. Bowel Motility: +BM 09/25 Labs Reviewed: Hgb:8.5, HCT:26.4, Alb:2.5, BUN:78, Cr:2.7, Glu:135 Meds Noted: novolog, bumex Skin: unstageable sacrum Additional Notes: Pt continues on a renal diet, intake 75% most meals, KOBY BID in place for wounds, glucerns shakes TID. Encourage po intake. Agree with orders. Monitoring intakes, weights, labs, supplement tolerance, skin, plan of care Follow up in 7 days
--- NOTE | 2025-09-27 13:50 | P.PNINF_ITS ---
Progress Note: A&P Assessment and Plan (1) Deep tissue injury: Code(s): T14.8XXA - Other injury of unspecified body region, initial encounter Status: Acute (2) Unstageable pressure ulcer of sacral region: Code(s): L89.150 - Pressure ulcer of sacral region, unstageable Status: Acute (3) Gram-negative bacteremia: Code(s): R78.81 - Bacteremia Status: Acute (4) Acute kidney injury superimposed on CKD: Code(s): N17.9 - Acute kidney failure, unspecified; N18.9 - Chronic kidney disease, unspecified Status: Acute Plan Impression: 1. Proteus bloodstream infection from admission of 09/20. Three of 4 bottles positive. -- Based on workup to date, suspect necrotic sacral wound as source. -- potential for occult GI complication as source. CT of pelvis did not comment on GI tract. -- urinalysis not consistent with UTI. 2. Necrotic sacral pressure ulcer, unstageable, and although CT scan did not identify extensive ulcer or any abscess formation would still consider this the source of polymicrobial Gram-negative bacteremia. 3. Acute on chronic kidney disease. 4. Right volar forearm phlebitis (09/27/25) --Apply warm compresses to area --Management as per primary service Plan: -- White blood cell count stable. -- Continue Ceftriaxone -- follow repeat 09/22 blood cultures. If again positive would consider LUZ MARIA. -- assuming negative 09/22 blood cultures anticipate continuing coverage for Proteus bacteremia through 10/02. -- surgery following although no debridement is planned at this time. -- may require colonoscopy in the future. Discussed with patient. All questions answered Subjective Date/time seen: 09/27/25 13:50 Interval history: Patient afebrile. Repeat blood cultures NGTD Review of Systems Review of Systems: All systems reviewed & are unremarkable except as noted in HPI and below Exam Narrative: Gen: NAD Pulm: normal chest wall expansion, no tachypnea Abd: non-distended Right forearm: phlebitis changes Sacral pressure ulcer: viewed photos in EMR Objective Data Vital Signs Vital Signs: Vital Signs - 24 hr 09/26/25 14:00 09/26/25 20:00 09/26/25 21:46 Temperature 98.5 F 97.7 F Pulse Rate 99 101 H Respiratory Rate 18 18 Blood Pressure 115/49 L 126/58 L Pulse Oximetry 98 100 Oxygen Delivery Room Air 09/27/25 05:08 09/27/25 09:08 Temperature 97.5 F L Pulse Rate 102 H 100 Respiratory Rate 16 Blood Pressure 119/59 L Pulse Oximetry 99 Oxygen Delivery Intake/Output Intake/Output: Intake & Output 09/24/25 09/25/25 09/26/25 09/27/25 23:59 23:59 23:59 23:59 Intake Total 1643 647 600 100 Output Total 725 825 710 400 Balance 918 -178 -110 -300 Meds/Results Medications: Active Medications Generic Name Dose Route Start Last Admin Trade Name Freq PRN Reason Stop Dose Admin Aspirin 81 mg 09/21/25 09:00 09/27/25 09:08 Aspirin 81 Mg Chewable Tablet PO 81 mg DAILY JACQUI Administration Atorvastatin Calcium 80 mg 09/21/25 09:00 09/27/25 09:08 Atorvastatin 40 Mg Tablet PO 80 mg DAILY JACQUI Administration Bumetanide 1 mg 09/26/25 09:00 09/27/25 09:09 Bumetanide 1 Mg Tablet PO 1 mg DAILY JACQUI Administration Citalopram Hydrobromide 20 mg 09/21/25 09:00 09/27/25 09:09 Citalopram Hydrobromide 20 Mg Tablet PO 20 mg DAILY JACQUI Administration Collagenase 1 applic 09/20/25 21:00 09/27/25 09:25 Collagenase Oint 30 Gm Tube TOPICAL 1 applic Q12HR JACQUI Administration Dextrose 12.5 gm 09/20/25 15:56 Dextrose 50% 25 Gm/50 Ml Syringe IV PUSH PRN PRN Hypoglycemia Protocol Ferrous Sulfate 325 mg 09/21/25 09:00 09/27/25 09:09 Ferrous Sulfate 325 Mg Tablet PO 325 mg BID JACQUI Administration Glucagon 1 mg 09/20/25 15:56 Glucagon For Inj 1 Mg Vial IM PRN PRN Hypoglycemia Protocol Glucose 15 gm 09/20/25 15:56 Glucose Oral Gel 15 Gm Of Glucse In 37.5 Gm Tube PO PRN PRN Hypoglycemia Protocol Heparin Sodium (Porcine) 5,000 units 09/20/25 22:00 09/27/25 05:45 Heparin Sodium 5,000 Units/Ml Vial SUB-Q 5,000 units Q8HR JACQUI Administration Dextrose 1,000 mls @ 100 mls/hr 09/20/25 15:56 Dextrose 5% 1,000 Ml IVPB PRN PRN Hypoglycemia Protocol Ceftriaxone Sodium 1 gm/ 50 mls @ 100 mls/hr 09/23/25 14:00 09/26/25 14:00 Sodium Chloride IVPB 100 mls/hr Q24H JACQUI Administration Insulin Aspart 2 - 5 units 09/20/25 17:00 09/27/25 13:01 Insulin Aspart (*Bkc) 100 Units/Ml SUB-Q Not Given TIDWM JACQUI Protocol Isosorbide Mononitrate 30 mg 09/21/25 09:00 09/27/25 09:09 Isosorbide Mononitrate 30 Mg Tab.Er.24h PO 30 mg DAILY JACQUI Administration Metoprolol Tartrate 50 mg 09/20/25 21:00 09/27/25 09:08 Metoprolol Tartrate 50 Mg Tab PO 50 mg Q12HR JACQUI Administration Minoxidil 5 mg 09/20/25 19:45 09/27/25 09:08 Minoxidil 2.5 Mg Tablet PO 5 mg BID JACQUI Administration Radiology Results: ITS Impressions Chest X-Ray 09/20/25 12:14 Impression: CHF Pelvis CT 09/20/25 14:19 IMPRESSION: 1. No significant change in 12 degrees lower lumbar levoscoliosis with severe spondylosis. 2. No evident sacral decubitus ulcer, abscess or acute intra-abdominal pelvic process. Renal Ultrasound 09/22/25 14:25 IMPRESSION: 1. 7 mm calcification at the mid right kidney which could represent a nonobstructing renal stone or atherosclerotic calcification. No hydronephrosis at either kidney. Labs Labs: Laboratory Results - last 24 hr 09/26/25 09/26/25 09/27/25 16:48 21:54 05:28 WBC 12.2 H RBC 3.07 L Hgb 8.5 L Hct 26.6 L MCV 86.6 MCH 27.7 MCHC 32.0 RDW 16.0 H Plt Count 196 MPV 9.7 Immature Gran % (Auto) 1.2 H Neut % (Auto) 78.8 H Lymph % (Auto) 7.9 L [place] % (Auto) 8.4 Eos % (Auto) 3.0 Baso % (Auto) 0.7 Lymph # (Auto) 0.96 [place] # (Auto) 1.0 H Eos # (Auto) 0.4 H Baso # (Auto) 0.1 Abs Immat Gran (auto) 0.14 H Absolute Neuts (auto) 9.6 H Absolute Nucleated RBC 0.000 Nucleated RBC % 0.0 Sodium 137 Potassium 3.9 Chloride 109 H Carbon Dioxide 22 Anion Gap 6 BUN 78 H Creatinine 2.76 H Estim Creat Clear Calc 16 Estimated GFR 17 L Glucose 135 H POC Capillary Glucose 151 H 186 H Calcium 8.1 L Phosphorus 2.6 Magnesium 2.3 Albumin 2.5 L 09/27/25 09/27/25 07:40 11:19 WBC RBC Hgb Hct MCV MCH MCHC RDW Plt Count MPV Immature Gran % (Auto) Neut % (Auto) Lymph % (Auto) [place] % (Auto) Eos % (Auto) Baso % (Auto) Lymph # (Auto) [place] # (Auto) Eos # (Auto) Baso # (Auto) Abs Immat Gran (auto) Absolute Neuts (auto) Absolute Nucleated RBC Nucleated RBC % Sodium Potassium Chloride Carbon Dioxide Anion Gap BUN Creatinine Estim Creat Clear Calc Estimated GFR Glucose POC Capillary Glucose 139 H 123 H Calcium Phosphorus Magnesium Albumin
[2025-09-27 14:00] VITALS: BP 108/46; PULSE 68; RESP 18; TEMP 36.7; O2SAT 99
[2025-09-27] MEDS: cefTRIAXone 1 GM in SODIUM CHLORIDE 0.9% IV 50 ML 100 ML IVPB (16:00)
[2025-09-27] MEDS: LIDOCAINE 1% LOCAL INJ 2 ML AMPUL 5 ML INFILTRATE (16:10)
--- NOTE | 2025-09-27 16:53 | P.PNIM_ITS ---
Progress Note: A&P Assessment and Plan (1) Chronic kidney disease, stage 4 (severe): Code(s): N18.4 - Chronic kidney disease, stage 4 (severe) Status: Chronic (2) Unstageable pressure ulcer of sacral region: Code(s): L89.150 - Pressure ulcer of sacral region, unstageable Status: Acute Plan Unstageable sacral decubitus ulcer Pansensitive Proteus bacteremia likely from decubitus ulcer -patient a large pressure ulcer 6x7 inches -appreciate general surgical consultation: non-operative management with antibiotics, will continue local wound care -pressure relieving measures -blood cultures aerobic and anaerobic bottles growing pansensitive Proteus mirabilis, repeat blood cultures from 09/22 NGTD -antibiotics: Cefepime, Flagyl -> rocephin 09/23- -improvement of leukocytosis 18k->>10.9k -consulted ID: Recommendation for Rocephin until 10/02 -echocardiogram: EF >70%, severe concentric left ventricle hypertrophy, normal right ventricle size and function -PT and OT consulted for weakness -source of Proteus bacteremia is most likely the sacral ulcer at this time. patient may need outpatient colonoscopy -placing midline 09/27 for IV antibiotics until 10/02 Acute kidney injury on CKD 4, improving Hypervolemic hyponatremia, improved -Cr improved from 5.4-4.92->2.92 with daily pushes of bumex, baseline is closer to 2.3-2.9 -continue monitor renal function -continue to hold losartan, BP lower with the bumex -consulted nephrology Dr. Granados: recs for 1mg daily bumex fo 1 week then decrease to 0.5mg daily. check BMP in 1 week and follow up with Dr. Michael -sodium 137, improved and stable -replacing potassium with the diuretics: Potassium 3.8 Chronic conditions -hyperlipidemia, CAD: Statin, aspirin, Imdur, beta-caitlyn, held Arb -depression: Citalopram -iron deficiency anemia: Ferrous sulfate supplement, hemoglobin 8.5, appears to be stable -type 2 diabetes: Sliding scale insulin, Accu-Cheks a.c. HS, hypoglycemia protocol -essential hypertension: home regimen losartan, metoprolol, minoxidil Diet: Renal diet with supplement DVT prophylaxis: SubQ heparin Code status: Full code Disposition: SNF tomorrow Time Spent With Patient Time: 35 minutes Subjective Date/time seen: 09/27/25 16:53 Interval history: Patient seen examined patient is to have the new complaints. patient denies fever, chills nausea diarrhea. Infectious Disease is recommending IV Rocephin until 10/02. Nephrology is recommending continue Bumex 1 mg daily for 1 week then decrease to 0.5 mg daily, check BMP in 1 week with results to Dr. Michael. We are arranging midline to be placed today and will try to discharge, if not tonight then tomorrow. Review of Systems Review of Systems: 10 point ROS complete, negative other th an what is specified in HPI. Exam Narrative: - GENERAL: Pleasant elder woman in no a cute distress - EYES: EOMI. Anicteric. - HENT: dry oral mucosa, edentulous - LUNGS: Clear to auscultation bilateral ly - CARDIOVASCULAR: Regular rate and rhyth m. - ABDOMEN: Soft, non-tender and non-dist ended. Sacral wound unstageable, stable - EXTREMITIES: Peripheral pulses 2+. - NEUROLOGIC: No focal neurological defi cits. CN II-XII grossly intact. - PSYCHIATRIC: Awake, Alert, not oriente d. Appropriate mood and affect, poor insight Objective Data Vital Signs Vital Signs: Vital Signs - 24 hr 09/26/25 20:00 09/26/25 21:46 09/27/25 05:08 Temperature 36.5 C 36.4 C L Pulse Rate 101 H 102 H Respiratory Rate 18 16 Blood Pressure 126/58 L 119/59 L Pulse Oximetry 100 99 Oxygen Delivery Room Air 09/27/25 09:08 09/27/25 14:00 Temperature 36.7 C Pulse Rate 100 68 Respiratory Rate 18 Blood Pressure 108/46 L Pulse Oximetry 99 Oxygen Delivery Intake/Output Intake/Output: Intake & Output 09/24/25 09/25/25 09/26/25 09/27/25 23:59 23:59 23:59 23:59 Intake Total 1643 647 650 100 Output Total 725 825 710 400 Balance 918 -178 -60 -300 Meds/Results Medications: Active Medications Generic Name Dose Route Start Last Admin Trade Name Freq PRN Reason Stop Dose Admin Aspirin 81 mg 09/21/25 09:00 09/27/25 09:08 Aspirin 81 Mg Chewable Tablet PO 81 mg DAILY JACQUI Administration Atorvastatin Calcium 80 mg 09/21/25 09:00 09/27/25 09:08 Atorvastatin 40 Mg Tablet PO 80 mg DAILY JACQUI Administration Bumetanide 1 mg 09/26/25 09:00 09/27/25 09:09 Bumetanide 1 Mg Tablet PO 1 mg DAILY JACQUI Administration Citalopram Hydrobromide 20 mg 09/21/25 09:00 09/27/25 09:09 Citalopram Hydrobromide 20 Mg Tablet PO 20 mg DAILY JACQUI Administration Collagenase 1 applic 09/20/25 21:00 09/27/25 09:25 Collagenase Oint 30 Gm Tube TOPICAL 1 applic Q12HR JACQUI Administration Dextrose 12.5 gm 09/20/25 15:56 Dextrose 50% 25 Gm/50 Ml Syringe IV PUSH PRN PRN Hypoglycemia Protocol Ferrous Sulfate 325 mg 09/21/25 09:00 09/27/25 16:04 Ferrous Sulfate 325 Mg Tablet PO 325 mg BID JACQUI Administration Glucagon 1 mg 09/20/25 15:56 Glucagon For Inj 1 Mg Vial IM PRN PRN Hypoglycemia Protocol Glucose 15 gm 09/20/25 15:56 Glucose Oral Gel 15 Gm Of Glucse In 37.5 Gm Tube PO PRN PRN Hypoglycemia Protocol Heparin Sodium (Porcine) 5,000 units 09/20/25 22:00 09/27/25 16:04 Heparin Sodium 5,000 Units/Ml Vial SUB-Q 5,000 units Q8HR JACQUI Administration Dextrose 1,000 mls @ 100 mls/hr 09/20/25 15:56 Dextrose 5% 1,000 Ml IVPB PRN PRN Hypoglycemia Protocol Ceftriaxone Sodium 1 gm/ 50 mls @ 100 mls/hr 09/23/25 14:00 09/27/25 16:00 Sodium Chloride IVPB 100 mls/hr Q24H JACQUI Administration Insulin Aspart 2 - 5 units 09/20/25 17:00 09/27/25 13:01 Insulin Aspart (*Bkc) 100 Units/Ml SUB-Q Not Given TIDWM JACQUI Protocol Isosorbide Mononitrate 30 mg 09/21/25 09:00 09/27/25 09:09 Isosorbide Mononitrate 30 Mg Tab.Er.24h PO 30 mg DAILY JACQUI Administration Metoprolol Tartrate 50 mg 09/20/25 21:00 09/27/25 09:08 Metoprolol Tartrate 50 Mg Tab PO 50 mg Q12HR JACQUI Administration Minoxidil 5 mg 09/20/25 19:45 09/27/25 16:04 Minoxidil 2.5 Mg Tablet PO 5 mg BID JACQUI Administration Sodium Chloride 10 ml 09/27/25 22:00 Saline Lock Flush IV PUSH Q8HR JACQUI Sodium Chloride 10 ml 09/27/25 16:51 Saline Lock Flush IV PUSH PRN PRN Flush Sodium Chloride 20 ml 09/27/25 16:51 Saline Lock Flush IV PUSH PRN PRN after blood draws Radiology Results: ITS Impressions Chest X-Ray 09/20/25 12:14 Impression: CHF Pelvis CT 09/20/25 14:19 IMPRESSION: 1. No significant change in 12 degrees lower lumbar levoscoliosis with severe spondylosis. 2. No evident sacral decubitus ulcer, abscess or acute intra-abdominal pelvic process. Renal Ultrasound 09/22/25 14:25 IMPRESSION: 1. 7 mm calcification at the mid right kidney which could represent a nonobstructing renal stone or atherosclerotic calcification. No hydronephrosis at either kidney. Labs Labs: Laboratory Results - last 24 hr 09/26/25 09/26/25 09/27/25 16:48 21:54 05:28 WBC 12.2 H RBC 3.07 L Hgb 8.5 L Hct 26.6 L MCV 86.6 MCH 27.7 MCHC 32.0 RDW 16.0 H Plt Count 196 MPV 9.7 Immature Gran % (Auto) 1.2 H Neut % (Auto) 78.8 H Lymph % (Auto) 7.9 L [place] % (Auto) 8.4 Eos % (Auto) 3.0 Baso % (Auto) 0.7 Lymph # (Auto) 0.96 [place] # (Auto) 1.0 H Eos # (Auto) 0.4 H Baso # (Auto) 0.1 Abs Immat Gran (auto) 0.14 H Absolute Neuts (auto) 9.6 H Absolute Nucleated RBC 0.000 Nucleated RBC % 0.0 Sodium 137 Potassium 3.9 Chloride 109 H Carbon Dioxide 22 Anion Gap 6 BUN 78 H Creatinine 2.76 H Estim Creat Clear Calc 16 Estimated GFR 17 L Glucose 135 H POC Capillary Glucose 151 H 186 H Calcium 8.1 L Phosphorus 2.6 Magnesium 2.3 Albumin 2.5 L 09/27/25 09/27/25 07:40 11:19 WBC RBC Hgb Hct MCV MCH MCHC RDW Plt Count MPV Immature Gran % (Auto) Neut % (Auto) Lymph % (Auto) [place] % (Auto) Eos % (Auto) Baso % (Auto) Lymph # (Auto) [place] # (Auto) Eos # (Auto) Baso # (Auto) Abs Immat Gran (auto) Absolute Neuts (auto) Absolute Nucleated RBC Nucleated RBC % Sodium Potassium Chloride Carbon Dioxide Anion Gap BUN Creatinine Estim Creat Clear Calc Estimated GFR Glucose POC Capillary Glucose 139 H 123 H Calcium Phosphorus Magnesium Albumin
--- NOTE | 2025-09-27 17:32 | P.DS_ITS ---
DS: Admitting Diagnosis Discharge Date 09/27/25 Admitting Diagnosis Acute kidney injury, deep tissue injury, skin soft tissue infection DS: Discharge Diagnosis Discharge Diagnosis (1) Acute kidney injury: Code(s): N17.9 - Acute kidney failure, unspecified Status: Acute (2) Stage 4 chronic kidney disease: Code(s): N18.4 - Chronic kidney disease, stage 4 (severe) Status: Chronic (3) Anemia: Code(s): D64.9 - Anemia, unspecified Status: Acute (4) Gram-negative bacteremia: Code(s): R78.81 - Bacteremia Status: Acute (5) Deep tissue injury: Code(s): T14.8XXA - Other injury of unspecified body region, initial encounter Status: Acute (6) Unstageable pressure ulcer of sacral region: Code(s): L89.150 - Pressure ulcer of sacral region, unstageable Status: Acute Plan Unstageable sacral decubitus ulcer Pansensitive Proteus bacteremia likely from decubitus ulcer -patient a large pressure ulcer 6x7 inches -appreciate general surgical consultation: non-operative management with antibiotics, will continue local wound care -pressure relieving measures -blood cultures aerobic and anaerobic bottles growing pansensitive Proteus mirabilis, repeat blood cultures from 09/22 NGTD -antibiotics: Cefepime, Flagyl -> rocephin 09/23- -improvement of leukocytosis 18k->>10.9k -consulted ID: Recommendation for Rocephin until 10/02 -echocardiogram: EF >70%, severe concentric left ventricle hypertrophy, normal right ventricle size and function -PT and OT consulted for weakness -source of Proteus bacteremia is most likely the sacral ulcer at this time. patient may need outpatient colonoscopy -placing midline 09/27 for IV antibiotics until 10/02 Acute kidney injury on CKD 4, improving Hypervolemic hyponatremia, improved -Cr improved from 5.4-4.92->2.92 with daily pushes of bumex, baseline is closer to 2.3-2.9 -continue monitor renal function -continue to hold losartan and minoxidil for 1 week, PCP to f/u -consulted nephrology Dr. Granados: recs for 1mg daily bumex fo 1 week then decrease to 0.5mg daily. check BMP in 1 week and follow up with Dr. Michael -sodium 137, improved and stable -replacing potassium with the diuretics: Potassium 3.8 Chronic conditions -hyperlipidemia, CAD: Statin, aspirin, Imdur, beta-caitlyn, held Arb -depression: Citalopram -iron deficiency anemia: Ferrous sulfate supplement, hemoglobin 8.5, appears to be stable -type 2 diabetes: Sliding scale insulin, Accu-Cheks a.c. HS, hypoglycemia protocol -essential hypertension: home regimen losartan, metoprolol, minoxidil Diet: Renal diet with supplement Code status: Full code Disposition: SNF DS: Summary Hospital Course Reason for hospitalization: Acute kidney injury, sacral decubitus ulcer Hospital Course: Patient is a 75-year-old female past medical history CVA, aortic stenosis status post TAVR, CKD 4, SDH, hypertension hyperlipidemia, dementia, type 2 diabetes who presents to ED with complaints of generalized weakness. She was found to have unstageable sacral decubitus ulcer. She was started on broad-spectrum antibiotics. She was seen by General surgery who did not recommend any surgical debridement, their recommendation was for medical management with IV antibiotics. Blood cultures came positive for Proteus. Recommendation from Infectious Disease to continue IV Rocephin until 10/02. Midline was placed on 09/27. Patient also found to have acute renal injury with creatinine elevated at 5.4 likely cardiorenal improved with diuretics. Nephrology consult head given Bumex and creatinine improved to 2.92. Recommendation from Nephrology is for 1 mg Bumex daily for 1 week then decrease to 0.5 mg daily. Will obtain a BMP in [address] Michael nephrology follow-up. Patient also found to have hypervolemic hyponatremia which improved with diuretics and sodium normalized by discharge. With Bumex we held her losartan and minoxidil for now. Patient to follow-up with PCP before resuming those medication. At time of discharge her labs are stable, vitals are stable, patient is stable for discharged to SNF. Patient was hospitalized from 09/20-09/27. Status at Discharge Cognitive/behavioral status at discharge: Baseline dementia Time Spent with Patient Time attestation: Total time spent providing and/or coordinating discharge services: 35 minutes Exam Narrative: - GENERAL: Pleasant elder woman in no a cute distress - EYES: EOMI. Anicteric. - HENT: dry oral mucosa, edentulous - LUNGS: Clear to auscultation bilateral ly - CARDIOVASCULAR: Regular rate and rhyth m. - ABDOMEN: Soft, non-tender and non-dist ended. Sacral wound unstageable, stable - EXTREMITIES: Peripheral pulses 2+. - NEUROLOGIC: No focal neurological defi cits. CN II-XII grossly intact. - PSYCHIATRIC: Awake, Alert, not oriente d. Appropriate mood and affect, poor insight DS: Data Data Completed and Pending Labs on day of discharge: Labs from last 24 hours 09/27/25 09/27/25 09/27/25 16:55 11:19 07:40 WBC RBC Hgb Hct MCV MCH MCHC RDW Plt Count MPV Immature Gran % (Auto) Neut % (Auto) Lymph % (Auto) [place] % (Auto) Eos % (Auto) Baso % (Auto) Lymph # (Auto) [place] # (Auto) Eos # (Auto) Baso # (Auto) Abs Immat Gran (auto) Absolute Neuts (auto) Absolute Nucleated RBC Nucleated RBC % Sodium Potassium Chloride Carbon Dioxide Anion Gap BUN Creatinine Estim Creat Clear Calc Estimated GFR Glucose POC Capillary Glucose 133 H 123 H 139 H Calcium Phosphorus Magnesium Albumin 09/27/25 09/26/25 05:28 21:54 WBC 12.2 H RBC 3.07 L Hgb 8.5 L Hct 26.6 L MCV 86.6 MCH 27.7 MCHC 32.0 RDW 16.0 H Plt Count 196 MPV 9.7 Immature Gran % (Auto) 1.2 H Neut % (Auto) 78.8 H Lymph % (Auto) 7.9 L [place] % (Auto) 8.4 Eos % (Auto) 3.0 Baso % (Auto) 0.7 Lymph # (Auto) 0.96 [place] # (Auto) 1.0 H Eos # (Auto) 0.4 H Baso # (Auto) 0.1 Abs Immat Gran (auto) 0.14 H Absolute Neuts (auto) 9.6 H Absolute Nucleated RBC 0.000 Nucleated RBC % 0.0 Sodium 137 Potassium 3.9 Chloride 109 H Carbon Dioxide 22 Anion Gap 6 BUN 78 H Creatinine 2.76 H Estim Creat Clear Calc 16 Estimated GFR 17 L Glucose 135 H POC Capillary Glucose 186 H Calcium 8.1 L Phosphorus 2.6 Magnesium 2.3 Albumin 2.5 L Preliminary micro results at discharge 09/22/25 13:14 Blood Culture - Preliminary Blood 09/22/25 13:19 Blood Culture - Preliminary Blood Discharge Plan Discharge Attending physician on discharge: Ho Beal Consulting providers: Diane Ruffin; Charlene Granados; Fermín Velázquez Discharging Clinician: Ho Beal Anticipated Discharge Date/Time: 09/27/25 17:21 Patient Disposition: SNF Activity: as tolerated Diet: renal Discharge Instructions: Please continue antibiotic Rocephin until 10/02, then remove midline afterwards. We will change lasix to Bumex 1 mg daily for 1 week and then decrease to 0.5 mg daily. We will check BMP in 1 week and follow-up with Dr. Michael nephrology. Please follow-up with PCP and Wound Care for further management of your decubitus ulcers. Hold off on losartan and minoxidil for 1 week and and follow up with PCP for further recommendations. Patient Instructions: Antibiotic Form, Chronic Kidney Disease (DC) Patient Language: Khmer Stand Alone Forms: General Discharge Information Follow-up/Referrals: Sabino Moore MD [Primary Care Provider, Family Practice] - 2 Weeks Colin Michael MD [Physician, Nephrology] - 1 Week Discharge Medications: New bumetanide 1 mg tablet 1 mg PO DAILY 30 Days Qty: 17 0RF Rx Instructions: 1mg daily for 1 week then 0.5mg daily ceftriaxone 1 gram recon soln 1 g IM DAILY 5 Days Qty: 5 0RF Continued aspirin 81 mg Tablet 81 mg PO DAILY Patient Comments: . Calcium 600 + D(3) 600 mg capsule 600 mg PO DAILY Patient Comments: reports not taking now. citalopram 20 mg tablet 20 mg PO DAILY Qty: 90 2RF metoprolol tartrate 50 mg tablet 50 mg PO BID Qty: 180 3RF Procrit 20,000 unit/mL solution 20,000 unit subcut .[id number] mecobalamin (vitamin B12) 2,500 mcg tablet,chewable 2,500 mcg PO DAILY isosorbide mononitrate 30 mg tablet extended release 24 hr 30 mg PO DAILY Qty: 90 3RF ferrous sulfate 325 mg (65 mg iron) tablet 325 mg PO BID Qty: 180 1RF atorvastatin [Lipitor] 80 mg tablet 80 mg PO DAILY Qty: 90 2RF Held minoxidil 2.5 mg tablet 5 mg PO BID Hold Instructions: Resume on 10/04/25. follow up with PCP before resuming losartan 25 mg tablet 25 mg PO DAILY Qty: 30 8RF Hold Instructions: Resume on 10/04/25. follow up with PCP before resuming Discontinued furosemide 40 mg tablet 20 mg PO DAILY Qty: 45 3RF Other Ambulatory Orders: Basic Metabolic Panel (Routine) Timeframe: 1 Week Location: Determined by Patient Ordered By: Ho Beal Date of admission: 09/21/25 08:50 Primary Care Provider: Sabino Moore Admitting Provider: Virginia Frederick Attending physician on admission: Virginia Frederick Condition: Improved Hospitalist MIPS Heart Failure (Exclusion) Patient has history of Heart Transplant or Left Ventricular Assistive Device?: No IF YES, STOP HERE Heart Failure (Qualifier) Patient has current or prior documentation of LVEF less than or equal to 40%, or mod/servere depressed LVSF?: No IF NO, STOP HERE
--- NOTE | 2025-09-27 17:39 | PCCCNOTE ---
Jose RN on [facility] called and said pt has her IV access placed and is ready to be discharged to [facility] at this time. NH packet taken to her with appropriate info on it. I called [place] with [facility] and had to leave a VM that pt would be com lauren to their facility for admit this fidelia and left my # if she had any questions. CR
--- NOTE | 2025-09-27 18:15 | PCCCNOTE ---
Jose MOISE from [facility] called and said she just spoke with the nursing staff at [facility] to give report and they told her that they didnt know anything about this pt coming. Jose said she did call [facility]. I called Susy [facility] day Case cord to clarify whom shed been talking to and she took #s to call to F/U ([place] and Mariann). I called back to Jose MOISE to update and she told me that [facility] had just called them back and is now accepting pt this evening via ambulance which is now in route to [facility] for transport. I called Susy Philippe back and informed her that the situation has been cleared up. No further CC needs at this time, CR
== END 2025-09-27 19:05 | DRG 592 ==
LOC: ANHED 14:13 → ANH3MEDSUR 15:52
PROVIDERS: General Practice; Internal Medicine Nephrology; Nurse Practitioner Adult Health; Admitting Provider Family Medicine; Emergency Provider Emergency Medicine; PCP Family Medicine; Visit Provider Student in an Organized Health Care Education/Training Program
DX: L89.150 Pressure ulcer of sacral region, unstageable (principal); E43 Unspecified severe protein-calorie malnutrition; N17.9 Acute kidney failure, unspecified; I13.0 Hypertensive heart and chronic kidney disease with heart failure and stage 1 through stage 4 chronic kidney disease, or unspecified chronic kidney disease; R78.81 Bacteremia; I50.22 Chronic systolic (congestive) heart failure; E87.1 Hypo-osmolality and hyponatremia; N18.4 Chronic kidney disease, stage 4 (severe); B96.4 Proteus (mirabilis) (morganii) as the cause of diseases classified elsewhere; E78.5 Hyperlipidemia, unspecified; D63.1 Anemia in chronic kidney disease; D50.9 Iron deficiency anemia, unspecified; I35.0 Nonrheumatic aortic (valve) stenosis; I87.8 Other specified disorders of veins; F32.A Depression, unspecified; E11.22 Type 2 diabetes mellitus with diabetic chronic kidney disease; F03.90 Unspecified dementia, unspecified severity, without behavioral disturbance, psychotic disturbance, mood disturbance, and anxiety; N39.498 Other specified urinary incontinence; I36.1 Nonrheumatic tricuspid (valve) insufficiency; I34.0 Nonrheumatic mitral (valve) insufficiency; N20.0 Calculus of kidney; Z87.891 Personal history of nicotine dependence; Z95.2 Presence of prosthetic heart valve; Z79.82 Long term (current) use of aspirin; Z86.73 Personal history of transient ischemic attack (TIA), and cerebral infarction without residual deficits; Z68.33 Body mass index [BMI] 33.0-33.9, adult
CPT/HCPCS: 36410; 36415; 71045; 72192; 76770; 80048; 80053; 80069; 80202; 81001; 82550; 82565; 82570; 82948; 83735; 83880; 84156; 84300; 84540; 85025; 85027; 85999; 87040; 87186; 93005; 93306; 96365; 96367; 97110; 97161; 97165; 97530; 97535; 99212; 99285; A9270; C1751; G0378; G0463; J0692; J0696; J1644; J1836; J1939; J2003; J3373; J7030; J7120

== ENCOUNTER 2025-10-26 13:34 | Inpatient (IN) | payer MEDICARE, SELFPAY ==
[2025-10-26] VITALS (8 sets, daily range): BP systolic 134–158; BP diastolic 63–72; PULSE 69–80; RESP 17–21; TEMP 36.9–37.6; O2SAT 97–100; BMI 33.0
--- NOTE | ~2025-10-26 | US_ITS ---
US abdomen limited Indication: Elevated liver enzymes Comparison: None Technique: Pagan-scale and color Doppler images were obtained. Findings: LIVER: Mild increased echogenicity of the liver. . The liver measures 15.2 cm. GALLBLADDER/BILIARY: Unremarkable.No cholelithiais, wall thickening or pericholecystic fluid. No biliary dilatation. CBD 6 mm. Hiram sign negative. PANCREAS: Pancreas limited by bowel gas. Right Kidney: The right kidney was not imaged. Impression: 1. Mild hepatic steatosis Reviewed, dictated and finalized at location P. NSION SERVICE SPECIALIST IN CHARGE Impression: 1. Mild hepatic steatosis
--- NOTE | ~2025-10-26 | CT_ITS ---
EXAM/PROCEDURE: CT abdomen pelvis w con HISTORY: sacral wound COMPARISON: September 20, 2025 TECHNIQUE: Contrast-enhanced CT of abdomen and pelvis FINDINGS: Prominent defect along the posterior margin of the lower pelvis consistent with open wound measures 7.0 x 4.1 x 1.7 cm in the cephalocaudal by transverse by AP dimensions. The cephalad tip of the wound appears to correspond to approximate sacrococcygeal junction or first coccygeal body. The inferior margin extends down to the gluteal crease. Soft tissue attenuation extends to the posterior margin of the coccygeal vertebral bodies with no definite erosion or definite osteomyelitis seen. Mild wall thickening in the rectal wall with moderate to large amount of stool present. The bowel gas pattern is not distended with no free air free fluid or pneumatosis seen. In the lung bases mild dependent atelectatic appearing changes and possible trace effusions. No AAA, hydroureteronephrosis, or gross CT evidence of acute cholecystitis pancreatitis or appendicitis. Urinary bladder appears normal. No bulky mesenteric or retroperitoneal lymphadenopathy or masses. Moderate amount of stool extends to the cecum. Bones appear intact. IMPRESSION: 1. Large decubitus wound extending from the sacrococcygeal junction caudally to the gluteal crease. The depth of the defect is approximately 1.7 cm, although there is soft tissue attenuation extending to the posterior coccygeal margin. No definite osteomyelitis however. Correlate with follow-up imaging; if osteomyelitis is a clinical concern, MRI is recommended. 2. Moderate to large amount of stool in the rectal vault with thickened appearance of the rectal wall which could represent developing stercoral colitis. Reviewed, dictated and finalized at location A. O PRODUCTION ENGINEER IMPRESSION: 1. Large decubitus wound extending from the sacrococcygeal junction caudally to the gluteal crease. The depth of the defect is approximately 1.7 cm, although there is soft tissue attenuation extending to the posterior coccygeal margin. N o definite osteomyelitis however. Correlate with follow-up imaging; if osteomye litis is a clinical concern, MRI is recommended. 2. Moderate to large amount of stool in the rectal vault with thickened appeara nce of the rectal wall which could represent developing stercoral colitis.
--- NOTE | 2025-10-26 14:01 | ED.WOUNDLAC ---
HPI - Wound/Laceration General Chief Complaint: Wound/Laceration Stated Complaint: abscess Time Seen by Provider: 10/26/25 13:36 Source: patient and EMS Mode of arrival: EMS Limitations: dementia History of Present Illness HPI narrative: This is a 75-year-old female with history of diabetes, CKD, hypertension, CVA, CHF, sacral decubitus ulcer who presents to the ED from [facility] via EMS for concerns for a wound. Patient states that she has a wound on her butt but she does not know anything about it. History is otherwise limited at this time. Related Data Home Medications ?Medication ?Instructions ?Recorded ?Confirmed ?Last Taken ?Type Calcium 600 + D(3) 600 mg PO DAILY 10/13/21 09/20/25 09/18/25 History aspirin 81 mg tablet 81 mg PO DAILY 10/13/21 09/20/25 09/19/25 History epoetin colin 20,000 unit/mL 20,000 unit subcut .[id number] 03/25/25 09/20/25 08/25/25 History injection solution (Procrit) mecobalamin (vitamin B12) 2,500 2,500 mcg PO DAILY 03/25/25 09/20/25 09/18/25 History mcg chewable tablet minoxidil 2.5 mg tablet 5 mg PO BID 06/08/25 09/20/25 09/20/25 History Held on 09/27/25. Instructions: Resume on 10/04/25. follow up with PCP before resuming Allergies Allergy/AdvReac Type Severity Reaction Status Date / Time No Known Allergies Allergy Verified 09/20/25 17:26 Review of Systems Review of Systems: ROS unobtainable: Yes unobtainable due to mental status PMFSH Past Medical History Medical History Hypertension Chronic venous stasis History of diabetes mellitus CVA (cerebral vascular accident) SDH (subdural hematoma) Aortic stenosis s/p TAVR Chronic kidney disease, stage 4 (severe) Hypertensive chronic kidney disease with stage 1 through stage 4 chronic kidney disease, or unspecified chronic kidney disease Mixed hyperlipidemia Surgical History Surgical History History of cataract extraction OD 10/2024, OS 11/2024 S/P TAVR (transcatheter aortic valve replacement) Ganglion cyst s/p excision from left wrist Family History Family History Father Family history of coronary artery disease Diabetes mellitus Social History Social History Social History: She is and lives with her . She has no children. 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 She denies any alcohol or illicit drugs. Her is a durable power workers compensation attorney for healthcare. Code status full code Smoking packs per day: 2 Smoking cigarettes per day: 40.0 Years smoked: 25 Smoking pack-years: 50.00 Smoking status: Former smoker Tobacco type: cigarettes Second hand tobacco smoke exposure: Yes Smoking end date: 11/11/94 Alcohol intake: never Substance use: never Substance use type: does not use Lack of Transportation: YES Lack of Food: Never True Current Housing: I Have Housing Concerned About Future Housing: No Difficulty Paying Gas/Electric Bills: No Difficulty Paying for Meds: No Currently Unemployed: No Education: High School Diploma/GED Difficulty w/ Childcare or Family Care: No Living arrangements: alone Occupation/Education: retired Gender identity (if verbalized by the patient): Female Spiritual care concerns: No Exam Narrative: APPEARANCE: No acute distress, nontoxic, resting in bed EYES: EOMI HEENT: Normocephalic, atraumatic, OMM RESPIRATORY: No respiratory distress Clear to auscultation bilaterally with no rhonchi wheezing or rales. CARDIOVASCULAR: Regular rate and rhythm without murmurs rubs or gallops. ABDOMINAL: Soft, nontender, nondistended, no rebound or guarding MUSCULOSKELETAl: Moves all extremities. No clubbing, cyanosis or edema. NEURO: AAO x1, no focal deficits SKIN:: Large tunneling sacral decubitus ulcer with some surrounding granulation tissue and evidence of gangrenous tissue within the wound itself, foul smell PSYCHIATRIC: Normal affect/mood, Course Vital Signs Vital signs: Vital Signs Temperature 99.2 F 10/26/25 13:33 Pulse Rate 75 10/26/25 13:33 Respiratory Rate 17 10/26/25 13:33 Pulse Oximetry 99 10/26/25 13:33 Oxygen Delivery Room Air 10/26/25 13:33 Temperature 98.7 F 10/26/25 17:17 Pulse Rate 80 10/26/25 17:17 Respiratory Rate 18 10/26/25 17:17 Blood Pressure 142/72 H 10/26/25 17:17 Pulse Oximetry 97 10/26/25 17:17 Oxygen Delivery Room Air 10/26/25 13:33 MDM MDM Narrative Medical decision making narrative: 75-year-old female Presenting for concerns for sacral wound. On initial evaluation patient was in no acute distress afebrile, hemodynamic stable. Differentials include but are not limited to: Abscess, sacral decubitus ulcer, cellulitis, electrolyte abnormality, osteomyelitis Notable exam findings: Large tunneling a sacral decubitus wound with some surrounding granulation tissue but gangrenous tissue within, foul-smelling I personally reviewed the patient's lab result. Notable lab findings: Leukocytosis at 13.4 with anemia at 8.1. Mild hyponatremia at 1:35 a.m., creatinine 2.02 which is actually better than usual. Mild transaminitis. Hypoalbuminemia. UA consistent with a UTI. CT abdomen/pelvis showed a large decubitus wound extending from the sacrococcygeal junction caudally to the gluteal crease depth approximately 1.7 cm, no definite osteomyelitis. Also noted moderate to large amount of stool in the rectal vault with thickened appearance of the rectal wall which could represent developing stercoral colitis Wound cultures and blood cultures were sent. Patient was started on vanc/Zosyn for large decubitus wound. Given the possible developing stercoral colitis she was given an enema. I did discuss the case with Dr. Gonzales, general surgery, his PA did evaluate the patient and will follow as a consult and agreed with current antibiotic regimen. Case was discussed with hospitalist who will admit the patient. Differential Diagnosis Differential Diagnosis: Abscess, sacral decubitus ulcer, cellulitis, electrolyte abnormality, osteomyelitis Lab Data 10/26/25 14:44 10/26/25 14:44 Labs: Lab Results 10/26/25 Range/Units 14:44 WBC 13.4 H (4.5-10.0) K/mm3 RBC 2.83 L (4.2-5.4) M/mm3 Hgb 8.1 L (12.0-15.0) g/dL Hct 25.3 L (37.0-47.0) % MCV 89.4 (80-100) fl MCH 28.6 (26-34) pg MCHC 32.0 (32-36) g/dl RDW 16.0 H (11.5-14.5) % Plt Count 266 (150-375) k/mm3 MPV 9.7 (7.4-10.4) fl Immature Gran % (Auto) 0.8 H (0-0.5) % Neut % (Auto) 78.3 H (45.5-73.1) % Lymph % (Auto) 8.1 L (18.3-44.2) % [place] % (Auto) 10.3 H (2.6-8.5) % Eos % (Auto) 2.1 (0-4.4) % Baso % (Auto) 0.4 (0.2-1.2) % Lymph # (Auto) 1.09 (0.9-3.2) K/mm3 [place] # (Auto) 1.4 H (0.1-0.6) K/mm3 Eos # (Auto) 0.3 (0-0.3) K/mm3 Baso # (Auto) 0.1 (0.0-0.1) K/mm3 Abs Immat Gran (auto) 0.11 H (0.00-0.031) K/mm3 Absolute Neuts (auto) 10.5 H (1.3-6.7) K/mm3 Absolute Nucleated RBC 0.000 (0.0-0.012) K/mm3 Nucleated RBC % 0.0 (0.0-0.2) % PT 15.6 H (11.1-14.7) Seconds INR 1.2 APTT 36.1 (22.3-36.8) Seconds Sodium 135 L (137-145) mmol/L Potassium 3.8 (3.4-5.0) mmol/L Chloride 107 (98-107) mmol/L Carbon Dioxide 26 (22-30) mmol/L Anion Gap 2 L (4-12) mmol/L BUN 34 H D (7-17) mg/dL Creatinine 2.02 H (0.7-1.0) mg/dL Estim Creat Clear Calc 21 ml/min Estimated GFR 24 L (59 - ) Glucose 174 H (65-110) mg/dL Lactic Acid 1.7 (0.7-2.0) mmol/L Calcium 7.9 L (8.4-10.2) mg/dL Total Bilirubin 0.9 (0.2-1.3) mg/dL AST 78 H (14-36) U/L ALT 76 H (6-35) U/L Alkaline Phosphatase 229 H (38-126) U/L C-Reactive Protein 8.4 H (<1.0) mg/dL Total Protein 5.6 L (6.3-8.2) g/dL Albumin 2.4 L (3.5-5.1) g/dL Imaging Data Radiologist's impression: ITS Impressions Abdomen/Pelvis CT 10/26/25 16:11 IMPRESSION: 1. Large decubitus wound extending from the sacrococcygeal junction caudally to the gluteal crease. The depth of the defect is approximately 1.7 cm, although there is soft tissue attenuation extending to the posterior coccygeal margin. No definite osteomyelitis however. Correlate with follow-up imaging; if osteomyelitis is a clinical concern, MRI is recommended. 2. Moderate to large amount of stool in the rectal vault with thickened appearance of the rectal wall which could represent developing stercoral colitis. Discharge Plan Discharge Clinical Impression: Decubitus ulcer of sacral region, stage 4, Acute UTI Constipation Qualifiers: Constipation type: unspecified constipation type Qualified Code(s): K59.00 - Constipation, unspecified CKD (chronic kidney disease) Qualifiers: Chronic kidney disease stage: unspecified stage Qualified Code(s): N18.9 - Chronic kidney disease, unspecified Anemia Qualifiers: Anemia type: unspecified type Qualified Code(s): D64.9 - Anemia, unspecified Type 2 diabetes mellitus with hyperglycemia Qualifiers: Diabetes mellitus care home insulin use: unspecified superintendent terminal insulin use status Qualified Code(s): E11.65 - Type 2 diabetes mellitus with hyperglycemia Patient Disposition: Still a Patient Condition: Stable
[2025-10-26 14:55] LABS: Hematocrit 25.3 % (37.0-47.0); Hemoglobin 8.1 g/dL (12.0-15.0); Immature Granulocyte Percent A 0.8 % (0-0.5); Lymphocytes Absolute Auto 1.09 K/mm3 (0.9-3.2); Mean Corpuscular HGB Conc 32.0 g/dl (32-36); Mean Corpuscular Hemoglobin 28.6 pg (26-34); Mean Corpuscular Volume 89.4 fl (80-100); Nucleated Red Blood Cells Absolute Auto 0.000 K/mm3 (0.0-0.012); Nucleated Red Blood Cells Perc 0.0 % (0.0-0.2); Platelet Count Result 266 k/mm3 (150-375); Red Blood Count 2.83 M/mm3 (4.2-5.4); White Blood Count 13.4 K/mm3 (4.5-10.0)
[2025-10-26 15:06] LABS: Alanine Aminotransferase 76 U/L (6-35); Albumin Level 2.4 g/dL (3.5-5.1); Alkaline Phosphatase 229 U/L (38-126); Anion Gap 2 mmol/L (4-12); Aspartate Amino Transferase 78 U/L (14-36); Bilirubin,Total 0.9 mg/dL (0.2-1.3); Blood Urea Nitrogen 34 mg/dL (7-17); CRP 8.4 mg/dL (<1.0); Calcium 7.9 mg/dL (8.4-10.2); Carbon Dioxide 26 mmol/L (22-30); Chloride 107 mmol/L (98-107); Estimated CRCL calculation 21 ml/min; Estimated Glomerular Filt Rate 24; Glucose 174 mg/dL (65-110); INR 1.2; Potassium 3.8 mmol/L (3.4-5.0); Prothrombin Time 15.6 Seconds (11.1-14.7); Sodium 135 mmol/L (137-145); Total Protein 5.6 g/dL (6.3-8.2)
[2025-10-26 15:07] LABS: Partial Thromboplastin Time 36.1 Seconds (22.3-36.8)
[2025-10-26] MEDS: SODIUM CHLORIDE 0.9% IV 1,000 ML 999 ML IV CONT ×2 (15:16→15:17)
[2025-10-26] MEDS: SODIUM CHLORIDE 0.9% IV 300 ML 999 ML IV CONT (15:17)
[2025-10-26] MEDS: CEFEPIME 2 GM in SODIUM CHLORIDE 0.9% IV 50 ML 100 ML IVPB (16:42)
--- NOTE | 2025-10-26 16:48 | PM.CNGS ---
Assessment and Plan Assessment and plan (1) Unstageable pressure ulcer of sacral region: Code(s): L89.150 - Pressure ulcer of sacral region, unstageable Status: Acute Assessment and Plan: patient is a 75-year-old female who presented to the emergency department today via EMS from [facility] with concerns for worsening sacral decubitus wound. she was previously seen by the general surgery team roughly a month ago and was treated conservatively with local wound care and antibiotics as the wound was very superficial and appeared to be more ischemic than necrotic. upon today's visit, the wound appears necrotic with moist strain he diamond-brown slough throughout the wound bed. No obvious bone exposed. Patient does have an elevated white blood cell count of 13.4. She was started on cefepime and vancomycin in the emergency department. Wound will likely need surgical debridement. Will reassess tomorrow to determine if this can be done at the bedside or if it needs to go to the operating room. Okay for diet tonight. Will make NPO at midnight. Continue IV antibiotics and local wound care. Plan Discussed patient's case and plan of care with Dr. Gonzales. History of Present Illness Consult details Consult date: 10/26/25 Reason for consult: other (stage 4 sacral decubitus ulcer) Requesting physician: John Gomez DO Narrative: Patient is a 75-year-old female with history of hypertension, chronic venous stasis, stage IV CKD, aortic stenosis ( status post TAVR ), CVA, type 2 diabetes mellitus, and known sacral decubitus ulcer who we have been asked to see in surgical consultation for worsening sacral decubitus ulcer. Patient presents to the emergency department today from [facility] via EMS for possible abscess or oscteomyelitiss of sacral wound. Patient's significant other, Cam, is at the bedside and able to provide some history. He states that patient does get up to the wheelchair to go to meals, but it seems as though she is primarily bed bound. He is unsure how often the patient is turned in bed. He does recall that she recently had a room change at the facility due to problems with AC unit. patient denies any fever, chills, nausea , vomiting or any other symptoms. patient was actually seen by the general surgery team in consultation on 09/20 through 09/23/2025. At this time, the pressure ulcer appeared to be stable with no obvious areas of infection. It was noted that the pressure ulcer was superficial with dark purple / black necrotic tissue throughout the entirety of the wound. It demonstrated changes more consistent with ischemia rather than infection. No areas of fluctuance or purulence at this time. The wound was treated conservatively With local care and antibiotics. Upon today's admission, labs reveal a white blood cell count of 13.4. Low-grade fever at 99.7. CT was obtained and demonstrated a large decubitus wound extending from the sacrococcygeal junction caudally to the gluteal crease. Depth of approximately 1.7 cm. Soft tissue attenuation extending to the posterior coccygeal margin. No definite osteomyelitis. Also noted was a moderate to large amount of stool in the rectal vault with thickened appearance of the rectal wall which could represent developing stercoral colitis. [facility] Past Medical History Medical History Hypertension Chronic venous stasis History of diabetes mellitus CVA (cerebral vascular accident) SDH (subdural hematoma) Aortic stenosis s/p TAVR Chronic kidney disease, stage 4 (severe) Hypertensive chronic kidney disease with stage 1 through stage 4 chronic kidney disease, or unspecified chronic kidney disease Mixed hyperlipidemia Surgical History Surgical History History of cataract extraction OD 10/2024, OS 11/2024 S/P TAVR (transcatheter aortic valve replacement) Ganglion cyst s/p excision from left wrist Family History Family History Father Family history of coronary artery disease Diabetes mellitus Social History Social History Social History: She is and lives with her . She has no children. 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 She denies any alcohol or illicit drugs. Her is a durable power claims attorney for healthcare. Code status full code Smoking packs per day: 2 Smoking cigarettes per day: 40.0 Years smoked: 25 Smoking pack-years: 50.00 Smoking status: Former smoker Tobacco type: cigarettes Second hand tobacco smoke exposure: Yes Smoking end date: 11/11/94 Alcohol intake: never Substance use: never Substance use type: does not use Lack of Transportation: YES Lack of Food: Never True Current Housing: I Have Housing Concerned About Future Housing: No Difficulty Paying Gas/Electric Bills: No Difficulty Paying for Meds: No Currently Unemployed: No Education: High School Diploma/GED Difficulty w/ Childcare or Family Care: No Living arrangements: alone Occupation/Education: retired Gender identity (if verbalized by the patient): Female Spiritual care concerns: No Meds Home Medications and Allergies Home Medications ?Medication ?Instructions ?Recorded ?Confirmed ?Type Calcium 600 + D(3) 600 mg PO DAILY 10/13/21 09/20/25 History aspirin 81 mg tablet 81 mg PO DAILY 10/13/21 09/20/25 History citalopram 20 mg tablet 20 mg PO DAILY #90 tabs 01/20/25 09/20/25 Rx metoprolol tartrate 50 mg tablet 50 mg PO BID #180 tabs 01/21/25 09/20/25 Rx epoetin colin 20,000 unit/mL 20,000 unit subcut .k9fttab 03/25/25 09/20/25 History injection solution (Procrit) mecobalamin (vitamin B12) 2,500 2,500 mcg PO DAILY 03/25/25 09/20/25 History mcg chewable tablet isosorbide mononitrate 30 mg 30 mg PO DAILY #90 tabs 04/22/25 09/20/25 Rx tablet,extended release 24 hr minoxidil 2.5 mg tablet 5 mg PO BID 06/08/25 09/20/25 History Held on 09/27/25. Instructions: Resume on 10/04/25. follow up with PCP before resuming ferrous sulfate 325 mg (65 mg 325 mg PO BID #180 tabs 06/16/25 09/20/25 Rx iron) tablet losartan 25 mg tablet 25 mg PO DAILY #30 tabs 06/28/25 09/20/25 Rx Held on 09/27/25. Instructions: Resume on 10/04/25. follow up with PCP before resuming atorvastatin 80 mg tablet (Lipitor) 80 mg PO DAILY #90 tabs 07/19/25 09/20/25 Rx bumetanide 1 mg tablet 1 mg PO DAILY 30 days #17 tabs 09/27/25 Rx ceftriaxone 1 gram solution for 1 g IM DAILY 5 days #5 ea 09/27/25 Rx injection Allergies Allergy/AdvReac Type Severity Reaction Status Date / Time No Known Allergies Allergy Verified 09/20/25 17:26 Vital Signs Vital Signs - 24 hr 10/26/25 13:33 10/26/25 15:21 10/26/25 16:43 Temperature 99.2 F 99.7 F H Pulse Rate 75 78 72 Respiratory Rate 17 20 21 H Blood Pressure 134/63 142/63 H Pulse Oximetry 99 97 97 Oxygen Delivery Room Air Exam Const: General: comfortable and no acute distress Eyes: General: appearance normal, both eyes and all related structures Neck: Neck: supple Resp: Effort & Inspection: normal respiratory effort Cardio: Rate: regular rate Back/Spine/Pelvis: Other: Sacral decubitus wound over sacrum/ coccyx roughly 6 cm x 6 cm x 2 cm. Wound base is primarily moist necrotic diamond-brown stringy soft devitalized tissue. Moderate serous drainage noted with foul odor. Patient did express some signs of pain with palpation of the wound. No obvious bone exposed. Surrounding tissue is red with signs of superficial breakdown. Psych: Mental Status: mental status grossly normal Results Labs 10/26/25 14:44 10/26/25 14:44 Labs: Abnormal lab results 10/26/25 Range/Units 14:44 WBC 13.4 H (4.5-10.0) K/mm3 RBC 2.83 L (4.2-5.4) M/mm3 Hgb 8.1 L (12.0-15.0) g/dL Hct 25.3 L (37.0-47.0) % RDW 16.0 H (11.5-14.5) % Immature Gran % (Auto) 0.8 H (0-0.5) % Neut % (Auto) 78.3 H (45.5-73.1) % Lymph % (Auto) 8.1 L (18.3-44.2) % Stephenson % (Auto) 10.3 H (2.6-8.5) % Stephenson # (Auto) 1.4 H (0.1-0.6) K/mm3 Abs Immat Gran (auto) 0.11 H (0.00-0.031) K/mm3 Absolute Neuts (auto) 10.5 H (1.3-6.7) K/mm3 PT 15.6 H (11.1-14.7) Seconds Sodium 135 L (137-145) mmol/L Anion Gap 2 L (4-12) mmol/L BUN 34 H D (7-17) mg/dL Creatinine 2.02 H (0.7-1.0) mg/dL Estimated GFR 24 L (59 - ) Glucose 174 H (65-110) mg/dL Calcium 7.9 L (8.4-10.2) mg/dL AST 78 H (14-36) U/L ALT 76 H (6-35) U/L Alkaline Phosphatase 229 H (38-126) U/L C-Reactive Protein 8.4 H (<1.0) mg/dL Total Protein 5.6 L (6.3-8.2) g/dL Albumin 2.4 L (3.5-5.1) g/dL Diabetes panel 10/26/25 Range/Units 14:44 Sodium 135 L (137-145) mmol/L Potassium 3.8 (3.4-5.0) mmol/L Chloride 107 (98-107) mmol/L Carbon Dioxide 26 (22-30) mmol/L BUN 34 H D (7-17) mg/dL Creatinine 2.02 H (0.7-1.0) mg/dL Glucose 174 H (65-110) mg/dL Calcium 7.9 L (8.4-10.2) mg/dL AST 78 H (14-36) U/L ALT 76 H (6-35) U/L Alkaline Phosphatase 229 H (38-126) U/L Total Protein 5.6 L (6.3-8.2) g/dL Albumin 2.4 L (3.5-5.1) g/dL Calcium panel 10/26/25 Range/Units 14:44 Calcium 7.9 L (8.4-10.2) mg/dL Albumin 2.4 L (3.5-5.1) g/dL Pituitary panel 10/26/25 Range/Units 14:44 Sodium 135 L (137-145) mmol/L Potassium 3.8 (3.4-5.0) mmol/L Chloride 107 (98-107) mmol/L Carbon Dioxide 26 (22-30) mmol/L BUN 34 H D (7-17) mg/dL Creatinine 2.02 H (0.7-1.0) mg/dL Glucose 174 H (65-110) mg/dL Calcium 7.9 L (8.4-10.2) mg/dL Adrenal panel 10/26/25 Range/Units 14:44 Sodium 135 L (137-145) mmol/L Potassium 3.8 (3.4-5.0) mmol/L Chloride 107 (98-107) mmol/L Carbon Dioxide 26 (22-30) mmol/L BUN 34 H D (7-17) mg/dL Creatinine 2.02 H (0.7-1.0) mg/dL Glucose 174 H (65-110) mg/dL Calcium 7.9 L (8.4-10.2) mg/dL Total Bilirubin 0.9 (0.2-1.3) mg/dL AST 78 H (14-36) U/L ALT 76 H (6-35) U/L Alkaline Phosphatase 229 H (38-126) U/L Total Protein 5.6 L (6.3-8.2) g/dL Albumin 2.4 L (3.5-5.1) g/dL All other labs normal.
[2025-10-26] MEDS: VANCOMYCIN 1,250 MG/NS 250 ML 1,250 MG/250 ML BAG 166.67 MG IVPB (17:15)
[2025-10-26 17:22] LABS: Add Urine Microscopic? YES; Appearance Urine Cloudy (Clear); Glucose Urine UA Negative (Negative); Leukocyte Esterase Ur 2+ LEU/UL (Negative); Need Manual Microscopic Reviewed; Nitrate Urine Negative (Negative); Specific Grav Ur 1.016 (1.001-1.035)
--- OUTSIDE RECORDS SUMMARY | 2025-10-26 17:35 | XMS_ITS | Encounter Summary ---
Author Organization [facility] [place] Address [address] [place] [address] Care Team Providers Care Staffing Rn Name Role Phone Sabino Moore MD Primary Care Provider [phone] Encounter Details Date Type Department Care Team ([facility] Contact Info) Description 10/25/2025 Orders Only [facility] Oncology and Hematology [facility] [address] [place] [address] Luisito Dejesus MD [address] [place] [phone] Anemia, chronic disease Social History Tobacco Use Types Packs/Day Years Used Date Smoking Tobacco: Former Cigarettes 1 10 0 11/11/1967 - 11/11/1977 Smokeless Tobacco: Never Alcohol Use Standard Drinks/Week Comments Not Currently 0 (1 standard drink = 0.6 oz pur e alcohol) Comments Unknown Sex and Gender Information Value Date Recorded Sex Assigned at Not on file Legal Sex Female 3:27 PM CDT Gender Identity Not on file Sexual Orientation Not on file documented as of this encounter Plan of Treatment Upcoming Encounters Date Type Department Care Team (Late Contact Info) Description 11/30/2025 11:15 AM ENDOSCOPY TECHNICAN Office Visit [facility] Oncology and Hematology - [place] [address] [place] [address] Luisito Dejesus MD [address] [place] [phone] documented as of this encounter Visit Diagnoses Diagnosis Anemia, chronic disease Anemia of other chronic disease documented in this encounter Care Teams Staffing Rn Relationship Specialty Start Date End Date Sabino Moore MD [address] [facility] [address] [place] [address] PCP - General Family Practice 08/31/22 documented as of this encounter
--- OUTSIDE RECORDS SUMMARY | 2025-10-26 17:35 | XMS_ITS | Clinical Summary ---
Author Organization [facility] Address [address] [place] [id number] Phone Care Team Providers Care Meterman Name Role Phone Sabino Moore MD Primary Care Provider [phone] Allergies No known active allergies Medications atorvastatin (LIPITOR) 80 MG tablet TK 1 T PO D 10/23/2019 Active citalopram (CeleXA) 20 MG tablet TK 1 T PO D 11/17/2019 Active dilTIAZem (CARDIZEM) 60 MG immediate release tablet TK 1 T PO TID 10/27/2019 Active fenofibrate (TRICOR) 48 MG tablet 10/23/2019 Active Insulin Lispro, 1 Unit Dial, (HumaLOG KWIKPEN) 100 UNIT/ML solution pen-injector 10 U SQ QAC 04/24/2019 Acti ve insulin detemir (LEVEMIR FLEXTOUCH) 100 UNIT/ML injection [...] Cerebral hemorrhage 05/08/2010 Mixed hyperlipidemia 05/08/2010 Immunizations Immunization Administration Dates Next Due Influenza Split 08/13/2013,08/25/2012 [...] at Not on file Legal Sex Female 9:23 AM MST Gender Identity Not on file Sexual Orientation Not on file Last Filed Vital Signs Vital Sign Reading Time Taken Comments Blood Pressure 142/70 12/30/2019 8:56 AM BOILER MAKER Pulse 72 12/30/2019 8:56 AM BOILER MAKER Temperature 36.6 C (97.9 F) 12/30/2019 8:56 AM BOILER MAKER Respiratory Rate - - Oxygen Saturation - - Inhaled Oxygen Concentration - - Weight 105 kg (231 lb) 12/30/2019 8:56 AM BOILER MAKER Height 152.4 cm (5') 12/30/2019 8:56 AM BOILER MAKER Body Mass Index 45.11 12/30/2019 8:56 AM BOILER MAKER Plan of Treatment Health Maintenance Due Date Last Done Comments Pneumococcal PPSV23/PCV13 65 + Years / Low and Medium Risk (2 of 4 - PCV) 11/19/2012 11/19/2011 Influenza Vaccine (#1) 2025 9, 08/13/2013, 08/25/2012 Insurance MEDICARE [employer] [place] MEDICARE SUPPLEMENT Care Teams Meterman Relationship Specialty Start Date End Date Sabino Moore MD [address] [facility] [address] [facility] [address] [place] [address] PCP - General Internal Medicine 12/25/19
--- OUTSIDE RECORDS SUMMARY | 2025-10-26 17:35 | XMS_ITS | Clinical Summary ---
Author Organization [facility] Alex king Agustínhayder Address [address] [address] Care Team Providers Care Taximeter Repairer Name Role Phone Sabino Moore MD Primary Care Provider Allergies No known active allergies Medications minoxidiL [...] Encounters Date Type Department Care Team Description 10/25/2025 Orders Only [facility] Oncology and Hematology - [place] [address] Luisito Dejesus MD Anemia, chronic disease 10/11/2025 Orders Only [facility] Oncology and Hematology - [place] [address] [place] [address] Luisito Dejesus MD Anemia, chronic disease 09/27/2025 Orders Only [facility] Oncology and Hematology - [place] [address] [place] [address] Luisito Dejesus MD Anemia, chronic disease 09/13/2025 Orders Only [facility] Oncology and Hematology - [place] [address] [place] [id number] Luisito Dejesus MD Anemia, chronic disease 09/08/2025 Orders Only [facility] Oncology and Hematology - [place] [address] [place] [id number] Luisito Dejesus MD 08/30/2025 Orders Only [facility] Oncology and Hematology - [place] [address] [place] [address] Luisito Dejesus MD Anemia, chronic disease 08/16/2025 Orders Only [facility] Oncology and Hematology - [place] [address] [place] [address] Luisito Dejesus MD Anemia, chronic disease 08/12/2025 Orders Only [facility] Oncology and Hematology - [place] [address] [place] [id number] Luisito Dejesus MD 08/02/2025 Orders Only [facility] Oncology and Hematology - [place] [address] [place] [address] Luisito Dejesus MD Anemia, chronic disease 07/29/2025 Orders Only [facility] Oncology and Hematology - [place] [address] [place] [address] Luisito Dejesus MD 07/27/2025 11:15 AM CDT Office Visit [facility] Oncology and Hematology [place] [address] [place] [address] Luisito Dejesus MD Anemia, chronic disease (Primary Dx) from Last 3 Months Social History Tobacco [...] st Contact Info) Description 11/30/2025 11:15 AM CD STORAGE AND MATERIALS MAKE UP HELPER Office Visit [facility] Oncology and Hematology - [place] [address] [place] [address] Luisito Dejesus MD [address] [place] [address] Health Maintenance Due Date Last [...] DIABETES HBA1C Q 6 MONTHS 12/28/2022 06/27/2022 Medicare Advantage ([place]) Prev entative Visit/Annual Wellness Visit 11/11/2024 INFLUENZA VACCINE (#1) 2025 , 09/11/2019, 09/09/2017 DTAP/TDAP/TD VACCINES (2 - T d or Tdap) 06/25/2032 06/25/2022 Procedures Procedure Name Priority Date/Time Associated Diagnosis Comments CBC WITH AUTODIFFERENTIAL Routine 2024 10:39 AM CDT CBC WITH AUTODIFFERENTIAL Routine 2024 12:30 PM CDT BASIC METABOLIC PANEL Routine 07/27/2025 7:58 AM CDT CBC WITH AUTODIFFERENTIAL Routine 2024 7:56 AM CDT from Last 3 Months Results * CBC WITH AUTODIFFERENTIAL (09/07/2025 10:39 AM CDT) Only the most recent of3 resultswithin the time period is included. Blood us Luisito Dejesus MD HEMATOLOGY ORDERABLES Final Res ult * BASIC METABOLIC PANEL (07/27/2025 7:58 AM CDT) Blood us Luisito Dejesus MD CHEMISTRY ORDERABLES Final Resu lt from Last 3 Months Insurance [employer] PPO MCR Care Teams Taximeter Repairer Relationship Specialty Start Date End Date Sabino Moore MD [address] [facility] [address] [place] [address] PCP - General Family Practice 08/31/22
--- OUTSIDE RECORDS SUMMARY | 2025-10-26 17:35 | XMS_ITS | Clinical Summary ---
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 Never 09/01/2021 Do you belong to any clubs o r organizations such as anglican groups, unions, fraternal or athletic groups, or [...] place to sleep or slept in a half-way (including now)? No 09/01/2021 Personal Safety Answer Date Recorded Getting School Help Needed Not on file 10/23 Comments No Sex and Gender Information Value Date Recorded Sex Assigned at Not on file Legal Sex Female 2:23 AM PRIVATE CHEF Gender Identity Not on file Sexual Orientation Not on file Last Filed Vital Signs Vital Sign Reading Time Taken Comments Blood Pressure 185/82 10/17/2023 11:53 AM PRIVATE CHEF Pulse 61 08/23/2023 10:05 AM CDT Temperature [...] 06/25/2032 06/25/2022 Medical Devices Implanted Type [place] Weighmaster Device Identifier Shelf Expiration Date Model / Serial / Lot [employer] 55936-89 Perclose 6fr Suture Mediate Knot Push Vascular Device Closure - [id number] Implanted:Qty: 1 on 08/31/2021 by Shaggy Burgess MD at [facility] [employer] 05/10/2023 [id number] / / [id number] [employer] 75430-60 Perclose 6fr Suture Mediate Knot Push Vascular Device Closure - [id number] Implanted:Qty: 1 on 08/31/2021 by Shaggy Burgess MD at [facility] [employer] 05/10/2023 [id number] / / [id number] [employer] [id number] Valve Heart 23mm Torey 3 Transcatheter - [id number] - [id number] Implanted:Qty: 1 on 08/31/2021 by Shaggy Burgess MD at [facility] [employer] 01/18/2023 [id number] / [id number] / [employer] [id number] Perclose 6fr Suture Mediate Knot Push Vascular Device Closure - [id number] Implanted:Qty: 1 on 08/31/2021 by Shaggy Burgess MD at [facility] [employer] 05/10/2023 [id number] / / [id number] Procedures Procedure Name Priority Date/Time Associated Diagnosis Comments POCT LIPID PANEL Routine 02/12/2023 11:4 8 AM CDT 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
--- OUTSIDE RECORDS SUMMARY | 2025-10-26 17:35 | XMS_ITS | Clinical Summary ---
Author Organization [facility] Address [address] [place] [address] Care Team Providers Care Spot Facer Name Role Phone Sabino Moore MD Primary Care Provider [phone] Source Comments [facility],non-owned Affiliates and Associated Physician Practices is amultiple site organization consisting of ambulatory clinics and hospital sitesin [place]. This disclosure is being madepursuant to the Care Everywhere program and may not contain all information available regarding this patient. Last updated 18.[facility] Allergies No known active allergies Medications * [...] disease (CKD) 2 Type 2 diabetes mellitus, [facility] long-term current use of insulin 06/25/2022 [...] 50+ (1 of 1 - PCV) 2001 Respiratory Syncytial Virus (RSV) Vaccine Pt: or over 60 yrs (1 - Risk 50-74 years 1-dose series) 2001 ZOSTER VACCINE (1 of 2) 2001 DIABETES-FOOT EXAM WITH MONOFILAMENT 06/25/2022 DIABETES-HGB A1C [...] 7 - 26 mg/dL 07/03/2022 7:38 AM [facility] Creatinine 1.49(H) 0.56 - 0.96 mg/dL 07/03/2022 7:38 AM [facility] Sodium 143 136 - 145 mmol/L 07/03/2022 7:38 AM [facility] Potassium 4.2 3.5 - 4.5 mmol/L 07/03/2022 7:38 AM [facility] Chloride 105 98 - 107 mmol/L 07/03/2022 7:38 AM [facility] CO2 22 22 - 29 mmol/L 07/03/2022 7:38 AM [facility] Glucose 69(L) 70 - 115 mg/dL 07/03/2022 7:38 AM [facility] Albumin 3.2(L) 3.4 - 5.0 g/dL 07/03/2022 7:38 AM [facility] Calcium 9.6 8.4 - 10.2 mg/dL 07/03/2022 7:38 AM [facility] Phosphorus 3.0 2.9 - 5.1 mg/dL 07/03/2022 7:38 AM [facility] Anion Gap 20(H) 8 - 18 07/03/2022 7:38 AM [facility] BUN/Creatinine Ratio 19 7 - 23 07/03/2022 7:38 AM [facility] Osmolality Calculated 300 270 - 300 mOsm/kg 07/03/2022 7:38 AM [facility] eGFR by CKD-EPI 38(L) >=90 mL/min/1.7 3 m2 07/03/2022 7:38 AM [facility] Blood BLOOD SPECIMEN / Unknown Lab Venipuncture / Unknown 07/03/2022 5:58 AM CDT 07/03/2022 7:07 AM CDT us Cale Brandon MD LAB - CHEMISTRY ORDERABLES F inal Result [facility] [address] [place] [address], [facility] [phone] * HEMOGLOBIN A1C (06/27/2022 3:29 AM CDT) Hemoglobin A1c 5.4 <=5.6 % 06/27/2022 8:34 AM [facility] Estimated Average Glucose 108 mg/dL 06/27/2022 8:34 AM [facility] Comment: HbA1c Interpretation: Normal : < 5.7% Pre-diabetes: 5.7-6.4% Diabetes: Equal to or greater than 6.5% Test results diagnostic of diabetes should be repeated for confirmation. Treatment target values recommended by ADA and other clinical organizations should be used to evaluate metabolic control in patients. Reference: [place] [employer], Standards of Care in Diabetes [...] - CHEMISTRY ORDERABLES F inal Result [facility] [address] [place] [address], [facility] [phone] from Last 3 Months or Most Recently Relevant to Health Maintenance Insurance [employer] MEDICARE ADV [employer] [facility] Address: [id number] [place] [phone] Advance Directives * Full Code (Latest Code Status on File) Date Activated Date Inactivated Comments 06/25/2022 4:46 AM 07/04/2022 4:59 PM Care Teams Spot Facer Relationship Specialty Start Date End Date Sabino Moore MD [address] [place] [address] PCP - General 03/23/22
--- NOTE | 2025-10-26 18:37 | WPCEDHO ---
ED Hand Off Checklist All vitals saved: YES IV Site documented: YES All med administrations documented: YES Triage Note Triage Note pt to ED from [facility] via 10/26/25 13:33 [facility] for c/o possible abscess or osteomyelitis. Pt is currently unable to state the year, but knows we are about to celebrate [place]. Pt is unaware who the current president is or birthday. Pt is able to state we are in a hospital and her name. Allergies No Known Allergies Allergy (Verified 10/26/25 18:36) Current Diagnoses Pressure ulcer of sacral region, unstageable (10/26/25) Family History (Last Reviewed 10/26/25 @ 14:04 by John Gomez DO) Father Family history of coronary artery disease Diabetes mellitus Administered/Completed Medications Discontinued Medications Sodium Chloride (Normal Saline Iv) 1,000 mls @ 999 mls/hr IV CONT .Q1H1M STA Stop: 10/26/25 14:45 Last Infusion: 10/26/25 17:14 Dose: Infused Documented By: Admin: 10/26/25 15:16 Dose: 999 mls/hr Documented By: MARCIA Sodium Chloride (Normal Saline Iv) 1,000 mls @ 999 mls/hr IV CONT .Q1H1M STA Stop: 10/26/25 14:45 Last Infusion: 10/26/25 17:51 Dose: Infused Documented By: Admin: 10/26/25 15:17 Dose: 999 mls/hr Documented By: MARCIA Sodium Chloride (Normal Saline Iv) 300 mls @ 999 mls/hr IV CONT .Q19M STA Stop: 10/26/25 14:03 Last Infusion: 10/26/25 16:00 Dose: Infused Documented By: Admin: 10/26/25 15:17 Dose: 999 mls/hr Documented By: MARCIA Sodium Chloride (Normal Saline Iv) Confirm Administered Dose 500 mls @ as directed .ROUTE .STK-MED ONE Stop: 10/26/25 14:53 Last Admin: 10/26/25 15:17 Dose: Not Given Documented By: MARCIA Non-Admin Reason: Duplicate Dose Sodium Chloride (Normal Saline Iv) 1,000 mls @ 999 mls/hr IV CONT .Q1H1M STA Stop: 10/26/25 16:13 Last Admin: 10/26/25 15:18 Dose: Not Given Documented By: MARCIA Non-Admin Reason: Duplicate Dose Sodium Chloride (Normal Saline Iv) 1,000 mls @ 999 mls/hr IV CONT .Q1H1M STA Stop: 10/26/25 16:13 Last Admin: 10/26/25 15:17 Dose: Not Given Documented By: MARCIA Non-Admin Reason: Duplicate Dose Sodium Chloride (Normal Saline Iv) 300 mls @ 999 mls/hr IV CONT .Q19M STA Stop: 10/26/25 15:31 Last Admin: 10/26/25 15:17 Dose: Not Given Documented By: MARCIA Non-Admin Reason: Duplicate Dose Cefepime HCl 2 gm/ Sodium (Chloride) 50 mls @ 100 mls/hr IVPB ONCE STA Stop: 10/26/25 16:40 Last Infusion: 10/26/25 17:14 Dose: Infused Documented By: Admin: 10/26/25 16:42 Dose: 100 mls/hr Documented By: MARCIA Vancomycin HCl (Vancomycin 1,250 Mg/Ns 250 Ml) 1,250 mg in 250 mls @ 166.667 mls/hr IVPB ONCE ONE Stop: 10/26/25 17:54 Last Admin: 10/26/25 17:15 Dose: 166.67 mls/hr Documented By: MARCIA Interventions/Assessments IV / Saline Lock, Insert Start: 10/26/25 13:32 Freq: Status: Active Protocol: Document 10/26/25 15:14 MARCIA (Rec: 10/26/25 15:14 MARCIA [id number]) IV Assessment Peripheral Access Right Wrist IV Catheter Access Initiated IV Insertion Date 10/26/25 IV Insertion Time 15:14 Catheter Gauge 20 IV Insertion 1 Attempts Ultrasound Used for No Placement IV Site Assessment WNL IV Care and WNL Maintenance Peripheral Access Left Forearm IV Catheter Access Initiated IV Insertion Date 10/26/25 IV Insertion Time 15:14 Catheter Gauge 20 IV Insertion 1 Attempts Ultrasound Used for No Placement IV Site Assessment WNL IV Care and WNL Maintenance Last Vital Signs Temperature 98.5 F 10/26/25 18:35 Pulse Rate 70 10/26/25 18:35 Respiratory Rate 17 10/26/25 18:35 Pulse Oximetry 100 10/26/25 18:35 Blood Pressure 158/68 H 10/26/25 18:35 Blood Pressure Mean 98 10/26/25 18:35 Oxygen Delivery Room Air 10/26/25 13:33 Weight 76.1 kg 10/26/25 13:33 Last Result - Abnormals Only WBC 13.4 K/mm3 (4.5-10.0) H 10/26/25 14:44 RBC 2.83 M/mm3 (4.2-5.4) L 10/26/25 14:44 Hgb 8.1 g/dL (12.0-15.0) L 10/26/25 14:44 Hct 25.3 % (37.0-47.0) L 10/26/25 14:44 RDW 16.0 % (11.5-14.5) H 10/26/25 14:44 Immature Gran % (Auto) 0.8 % (0-0.5) H 10/26/25 14:44 Neut % (Auto) 78.3 % (45.5-73.1) H 10/26/25 14:44 Lymph % (Auto) 8.1 % (18.3-44.2) L 10/26/25 14:44 [place] % (Auto) 10.3 % (2.6-8.5) H 10/26/25 14:44 [place] # (Auto) 1.4 K/mm3 (0.1-0.6) H 10/26/25 14:44 Abs Immat Gran (auto) 0.11 K/mm3 (0.00-0.031) H 10/26/25 14:44 Absolute Neuts (auto) 10.5 K/mm3 (1.3-6.7) H 10/26/25 14:44 PT 15.6 Seconds (11.1-14.7) H 10/26/25 14:44 Sodium 135 mmol/L (137-145) L 10/26/25 14:44 Anion Gap 2 mmol/L (4-12) L 10/26/25 14:44 BUN 34 mg/dL (7-17) H D 10/26/25 14:44 Creatinine 2.02 mg/dL (0.7-1.0) H 10/26/25 14:44 Estimated GFR 24 (59-) L 10/26/25 14:44 Glucose 174 mg/dL (65-110) H 10/26/25 14:44 Calcium 7.9 mg/dL (8.4-10.2) L 10/26/25 14:44 AST 78 U/L (14-36) H 10/26/25 14:44 ALT 76 U/L (6-35) H 10/26/25 14:44 Alkaline Phosphatase 229 U/L (38-126) H 10/26/25 14:44 C-Reactive Protein 8.4 mg/dL (<1.0) H 10/26/25 14:44 Total Protein 5.6 g/dL (6.3-8.2) L 10/26/25 14:44 Albumin 2.4 g/dL (3.5-5.1) L 10/26/25 14:44 Urine Appearance Cloudy (Clear) H 10/26/25 16:58 Urine Protein 3+ mg/dL (Negative) H 10/26/25 16:58 Ur Blood (Man) 1+ (Negative) H 10/26/25 16:58 Leukocyte Esterase Rfl 2+ ELVIA/UL (Negative) H 10/26/25 16:58 Urine WBC >100 /hpf (0-3) H 10/26/25 16:58 Urine Bacteria 4+ /hpf H 10/26/25 16:58
--- NOTE | 2025-10-26 19:04 | PC.NURSE ---
RN attempted to call report 2x to pt NH, upon first call was transferred and received no answer, on second call received no answer.
--- NOTE | 2025-10-26 19:09 | PC.NURSE ---
RN called pt spouse and informed him that pt was being taken upstairs to room 324-2
--- NOTE | 2025-10-26 20:01 | ADMGEN ---
This patient, Amelie Menjivar, was admitted to [facility] Surg Room 324-02. Patient/family oriented to hospital policies and general routines including ID bracelet, bed and alarms, visiting hours, pain management, procedures, bathroom and other care routines, personal items, smoking policy, room service/diet, and visiting hours. Information on how to activate the Rapid Response Team has been discussed. Patient/Family are encouraged to report perceived risks to care and to ask questions if they do not understand what they are told or what they should do.
--- NOTE | 2025-10-26 22:34 | PM.IMHP2 ---
H&P: HPI History of Present Illness Date/Time: 10/26/25 22:34 Chief Complaint: Sacral wound Narrative: This is a 75-year-old female patient who resides at [facility]. The patient has a chronic sacral wound. However she comes in today from the [facility] facility via EMS due to a sacral wound that has been draining with a foul smell. She has a history of diabetes, chronic kidney disease, hypertension, congestive heart failure in his CVA. Information was obtained from old records and some from the patient. She is a poor historian. Abdominal/pelvis CT was read as following1. Large decubitus wound extending from the sacrococcygeal junction caudally to the gluteal crease. The depth of the defect is approximately 1.7 cm, although there is soft tissue attenuation extending to the posterior coccygeal margin. No definite osteomyelitis however. Correlate with follow-up imaging; if osteomyelitis is a clinical concern, MRI is recommended. 2. Moderate to large amount of stool in the rectal vault with thickened appearance of the rectal wall which could represent developing stercoral colitis. The patient was started on IV fluids, vancomycin, and cefepime. Surgery has been consulted from the emergency room and has already seen the patient. Her white count was noted to be 13.4. H&H is 8.1 and 25.3 which is her baseline. Sodium was slightly low 135. In BUN is 34 and creatinine is 2.02 with a GFR of 24. Her renal function has improved from her baseline. Glucose 174 with a repeat point of care glucose of 122. Calcium is low at 7.9. Liver enzymes are mildly elevated. Urine has 3+ protein, urine blood 1+, leukocyte esterase 2+, 4+ bacteria, and wbc's greater than 100. T-max 99.7?. Heart rate 69 and blood pressure 154/63. Pulse ox 97% on room air. The patient is being admitted to inpatient status on the date of service of 10/26/2025. Review of Systems Review of Systems: The patient is a poor historian. The patient was able to supply some of the history and much of the information was obtained from old records. Constitutional: Constitutional: Reports as per HPI and Reports no additional constitutional complaints Eyes: Eyes: Reports as per HPI and Reports no additional eye complaints ENT: Reports system reviewed and no additional complaints, except as documented and Reports Normal hearing present Cardiovascular: Cardiovascular: Reports no additional cardiovascular complaints Respiratory: Respiratory: Reports as per HPI and Reports no additional respiratory complaints Gastrointestinal: Gastrointestinal: Reports as per HPI and Reports no additional gastrointestinal complaints Genitourinary: Genitourinary: Reports no additional female genitourinary complaints Musculoskeletal: Musculoskeletal: Reports no additional musculoskeletal complaints Integumentary/Breasts: Skin/Breast: Reports system reviewed and no additional complaints, except as docu Neurologic: Reports system reviewed and no additional complaints, except as documented and Reports Normal hearing present Psychiatric: Psychiatric: Reports no additional psychiatric complaints and Reports as per HPI Hematologic/Lymphatic: Hematologic/Lymphatic: Reports no additional hematologic/lymphatic complaints Allergic/Immunologic: Allergic/Immunologic: Reports no additional allergic/immunologic complaints [facility] Past Medical History Medical History (Updated 10/26/25 @ 23:22 by Aliza Calvert APRN) Anemia Anemia, chronic disease Anemia, chronic disease Anemia Type 2 diabetes mellitus with diabetic nephropathy Long-term current use of insulin for diabetes mellitus Acute kidney injury superimposed on CKD Decubitus ulcer of sacral area Hypertension Chronic venous stasis History of diabetes mellitus CVA (cerebral vascular accident) SDH (subdural hematoma) Aortic stenosis s/p TAVR Chronic kidney disease, stage 4 (severe) Hypertensive chronic kidney disease with stage 1 through stage 4 chronic kidney disease, or unspecified chronic kidney disease Mixed hyperlipidemia Surgical History Surgical History (Updated 10/26/25 @ 22:42 by Aliza Calvert APRN) History of tonsillectomy History of cataract extraction OD 10/2024, OS 11/2024 S/P TAVR (transcatheter aortic valve replacement) Ganglion cyst s/p excision from left wrist Family History Family History Father Family history of coronary artery disease Diabetes mellitus Social History Social History (Updated 10/26/25 @ 22:43 by Aliza Calvert APRN) Social History: She is and lives with her at [facility] . She has no children. 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 She denies any alcohol or illicit drugs. Her is a durable power trust and estates attorney for healthcare. Code status full code Smoking packs per day: 2 Smoking cigarettes per day: 40.0 Years smoked: 25 Smoking pack-years: 50.00 Smoking status: Former smoker Tobacco type: cigarettes Second hand tobacco smoke exposure: Yes Smoking end date: 11/11/94 Alcohol intake: never Substance use: never Substance use type: does not use Lack of Transportation: YES Lack of Food: Never True Current Housing: I Have Housing Concerned About Future Housing: No Difficulty Paying Gas/Electric Bills: No Difficulty Paying for Meds: No Currently Unemployed: No Education: High School Diploma/GED Difficulty w/ Childcare or Family Care: No Living arrangements: alone Occupation/Education: retired Gender identity (if verbalized by the patient): Female Spiritual care concerns: No Meds Home Medications and Allergies Home Medications ?Medication ?Instructions ?Recorded ?Confirmed ?Type Calcium 600 + D(3) 600 mg PO DAILY 10/13/21 09/20/25 History aspirin 81 mg tablet 81 mg PO DAILY 10/13/21 09/20/25 History citalopram 20 mg tablet 20 mg PO DAILY #90 tabs 01/20/25 09/20/25 Rx metoprolol tartrate 50 mg tablet 50 mg PO BID #180 tabs 01/21/25 09/20/25 Rx epoetin colin 20,000 unit/mL 20,000 unit subcut .[id number] 03/25/25 09/20/25 History injection solution (Procrit) mecobalamin (vitamin B12) 2,500 2,500 mcg PO DAILY 03/25/25 09/20/25 History mcg chewable tablet isosorbide mononitrate 30 mg 30 mg PO DAILY #90 tabs 04/22/25 09/20/25 Rx tablet,extended release 24 hr minoxidil 2.5 mg tablet 5 mg PO BID 06/08/25 09/20/25 History Held on 09/27/25. Instructions: Resume on 10/04/25. follow up with PCP before resuming ferrous sulfate 325 mg (65 mg 325 mg PO BID #180 tabs 06/16/25 09/20/25 Rx iron) tablet losartan 25 mg tablet 25 mg PO DAILY #30 tabs 06/28/25 09/20/25 Rx Held on 09/27/25. Instructions: Resume on 10/04/25. follow up with PCP before resuming atorvastatin 80 mg tablet (Lipitor) 80 mg PO DAILY #90 tabs 07/19/25 09/20/25 Rx bumetanide 1 mg tablet 1 mg PO DAILY 30 days #17 tabs 09/27/25 Rx ceftriaxone 1 gram solution for 1 g IM DAILY 5 days #5 ea 09/27/25 Rx injection Allergies Allergy/AdvReac Type Severity Reaction Status Date / Time No Known Allergies Allergy Verified 10/26/25 18:36 Vital Signs Vital Signs - 24 hr 10/26/25 13:33 10/26/25 15:21 10/26/25 16:41 Temperature 99.2 F Pulse Rate 75 78 77 Respiratory Rate 17 20 20 Blood Pressure 134/63 142/63 H Pulse Oximetry 99 97 98 Oxygen Delivery Room Air 10/26/25 16:43 10/26/25 17:00 10/26/25 17:17 Temperature 99.7 F H 98.7 F Pulse Rate 72 76 80 Respiratory Rate 21 H 20 18 Blood Pressure 142/63 H 142/72 H 142/72 H Pulse Oximetry 97 99 97 Oxygen Delivery 10/26/25 18:35 10/26/25 20:15 Temperature 98.5 F 99.1 F Pulse Rate 70 69 Respiratory Rate 17 18 Blood Pressure 158/68 H 154/63 H Pulse Oximetry 100 97 Oxygen Delivery Exam Const: General: cooperative, comfortable, no acute distress, well developed, awake, Physically active, average body habitus and well nourished Nutritional Appearance: well nourished Orientation/consciousness: oriented to person HENMT: Head: normal to inspection, No palpable skull fracture present, normocephalic, atraumatic and abrasion Ears: hearing grossly normal bilaterally Eyes: General: appearance normal, both eyes and all related structures Alignment and Position: alignment normal Periorbital: periorbital findings normal Eyelids: eyelids normal Conjunctivae: conjunctivae normal Neck: Neck: normal visual inspection, full ROM and no lymphadenopathy Chest: Chest palpation & inspection: normal inspection of the chest Resp: Effort & Inspection: normal respiratory effort Auscultation: clear to auscultation bilaterally Cardio: Palpation: normal PMI Rate: regular rate Rhythm: regular rhythm Heart sounds: S1 normal heart sound present and S2 normal heart sound present Peripheral pulses: Peripheral pulses 2+ throughout GI: Inspection: normal to inspection Auscultation: normal bowel sounds Rectal Exam: deferred Back/Spine/Pelvis: Back: no CVA tenderness Skin: General skin exam: normal color Lesions: no lesions Rashes: no rashes Trauma: no lacerations or abrasions Other: prominent defect along the posterior margin of the lower pelvis consistent with open wound measures 7.0 x 4.1 x 1.7 cm in the cephalocaudal by transverse by AP dimensions as per CT. The patient has an unstageable pressure sacral ulcer. She has necrotic tissue with Moist diamond brown slough throughout the wound. No obvious bone exposure. Neuro: General: oriented to person and oriented to place Cranial nerves: Yes Normal hearing present Cognition (Neuro): normal cognition Speech: normal speech Motor exam (neuro): 5/5 motor strength present throughout Sensory Exam: normal sensation Other: Patient is slow to speak. Patient's right pupil is dilated and her left pupil was constricted. Unsure if this is related to her previous cataract surgery. Extrem: General: normal to inspection Right upper extremity: normal to inspection and shoulder/upper arm Left upper extremity: normal to inspection and shoulder/upper arm Right lower extremity: normal to inspection Left lower extremity: normal to inspection Other: Chronic venous stasis to lower extremities with discoloration to lower extremities. Psych: Appearance: grossly normal Mental Status: mental status grossly normal Speech and movement: Normal speech and movement present Affect: normal affect Attitude: cooperative Thought process: Normal thought process present Thought content: Yes Normal thought content present Results Labs Labs: Short CBC 10/26/25 Range/Units 14:44 WBC 13.4 H (4.5-10.0) K/mm3 Hgb 8.1 L (12.0-15.0) g/dL Hct 25.3 L (37.0-47.0) % Plt Count 266 (150-375) k/mm3 [facility] 10/26/25 14:44 Sodium 135 L Potassium 3.8 Chloride 107 Carbon Dioxide 26 BUN 34 H D Creatinine 2.02 H Glucose 174 H Calcium 7.9 L Liver Function 10/26/25 Range/Units 14:44 Total Bilirubin 0.9 (0.2-1.3) mg/dL AST 78 H (14-36) U/L ALT 76 H (6-35) U/L Alkaline Phosphatase 229 H (38-126) U/L Albumin 2.4 L (3.5-5.1) g/dL Urine 10/26/25 Range/Units 16:58 Urine Color Yellow (Yellow) Urine Appearance Cloudy H (Clear) Urine pH 5.5 (5.0-9.0) Ur Specific [place] 1.016 (1.001-1.035) Urine Protein 3+ H (Negative) mg/dL Urine Glucose (UA) Negative (Negative) mg/dL Imaging CT scan - abdomen: Attestation: I personally reviewed this imaging study Radiologist's impression: Impressions Abdomen/Pelvis CT 10/26/25 16:11 IMPRESSION: 1. Large decubitus wound extending from the sacrococcygeal junction caudally to the gluteal crease. The depth of the defect is approximately 1.7 cm, although there is soft tissue attenuation extending to the posterior coccygeal margin. No definite osteomyelitis however. Correlate with follow-up imaging; if osteomyelitis is a clinical concern, MRI is recommended. 2. Moderate to large amount of stool in the rectal vault with thickened appearance of the rectal wall which could represent developing stercoral colitis. Quality VTE Prophylaxis VTE prophylaxis: mechanical ordered Assessment and Plan Assessment and plan (1) Unstageable pressure ulcer of sacral region: Code(s): L89.150 - Pressure ulcer of sacral region, unstageable Status: Acute Assessment and Plan: -the patient was seen by surgery upon admission and was seen previously a month ago. One month ago she was treated conservatively with antibiotics and wound management. However now she appears to have some eschar tissue with some foul-smelling drainage .-her white count is now 13.4. -continue with cefepime, Flagyl, and vancomycin. -blood and wound cultures are pending. -the patient was bolused with 6 L of fluid. Please monitor for fluid overload. -continue with IV fluids. -patient most likely will need surgical debridement. (2) UTI (urinary tract infection): Code(s): N39.0 - Urinary tract infection, site not specified Status: Acute Assessment and Plan: -the patient is already on cefepime and vancomycin. -urine and blood cultures are pending. -she had 2+ leukocytes and urine wbc's greater than 100. -she could possibly have E coli as she is wearing a depends and has diarrhea stools. (3) Mixed hyperlipidemia: Code(s): E78.2 - Mixed hyperlipidemia Status: Acute Assessment and Plan: -patient is NPO at this time for possible surgical debridement. -resume atorvastatin when no longer NPO. (4) Hypertension: Qualifiers: Hypertension type: primary hypertension Qualified Code(s): I10 - Essential (primary) hypertension Code(s): I10 - Essential (primary) hypertension Status: Chronic Assessment and Plan: The patient is currently NPO. Her home medications are on hold. Please verify her home medications. -p.r.n. Hydralazine with parameters. (5) Anxiety: Code(s): F41.9 - Anxiety disorder, unspecified Status: Acute Assessment and Plan: -the patient is NPO at this time. Resume home medications when she is no longer NPO. (6) Transaminitis: Code(s): R74.01 - Elevation of levels of liver transaminase levels Status: Acute Assessment and Plan: -unclear if this is related medication or infection. -abdominal ultrasound has been ordered. -hepatitis panel ordered. (7) Anemia in chronic kidney disease (CKD): Code(s): N18.9 - Chronic kidney disease, unspecified; D63.1 - Anemia in chronic kidney disease Status: Acute Assessment and Plan: -her H&H is stable this point. Her H&H is 8.1 and 25.3. -please continue with her home medications. Patient appears to be on ferrous sulfate and Procrit. -the patient has been seen by Nephrology in the past. -her BUN and creatinine are above baseline. -her BUN is 34, creatinine is 2.02 and GFR is 24. -continue to monitor BMP daily. (8) Hypocalcemia: Code(s): E83.51 - Hypocalcemia Status: Acute Assessment and Plan: -patient's calcium level 7.9 this appears to be her baseline. -magnesium ordered -ionized calcium ordered. -check PTH. -check vitamin-D level. Consultations Consultations: I have discussed the care of this pt with the consulting providers. (ER provider spoke with surgical team.) Time Spent with Patient Time with patient: 45 - 74 minutes
[2025-10-26] MEDS: SODIUM CHLORIDE 0.9% IV 1,000 ML 75 ML IV CONT (23:41)
[2025-10-26] MEDS: metroNIDAZOLE 500 MG/ISO 100ML 500 MG/100 ML BAG 100 MG IVPB (23:42)
[2025-10-27 00:03] LABS: Magnesium 1.9 mg/dL (1.6-2.3)
[2025-10-27 00:27] LABS: Thyroid Stimulating Hormone Reflex 1.840 uIU/mL (0.465-4.68)
[2025-10-27 00:34] LABS: Hepatitis B Surface Antigen Negative (Negative)
[2025-10-27 00:40] LABS: HAV RESULT Negative (Negative); Hepatitis B Core IgM Result Negative (Negative)
--- NOTE | 2025-10-27 05:46 | WNDPHOTO ---
PHOTO ONLY - See Nursing Notes and/ or assessments for documentation.
[2025-10-27] MEDS: metroNIDAZOLE 500 MG/ISO 100ML 500 MG/100 ML BAG 100 MG IVPB ×3 (05:59→23:23)
[2025-10-27 06:00] VITALS: BP 158/74; PULSE 84; RESP 16; TEMP 37.3; O2SAT 99
[2025-10-27 06:50] LABS: Calcium 7.7 mg/dL (8.4-10.2); Estimated CRCL calculation 23 ml/min; Estimated Glomerular Filt Rate 27
[2025-10-27 09:14] LABS: Hematocrit 26.4 % (37.0-47.0); Hemoglobin 8.0 g/dL (12.0-15.0); Mean Corpuscular HGB Conc 30.3 g/dl (32-36); Mean Corpuscular Hemoglobin 28.0 pg (26-34); Mean Corpuscular Volume 92.3 fl (80-100); Platelet Count Result 256 k/mm3 (150-375); Red Blood Count 2.86 M/mm3 (4.2-5.4); White Blood Count 11.6 K/mm3 (4.5-10.0)
[2025-10-27 09:24] LABS: Anion Gap 4 mmol/L (4-12); Blood Urea Nitrogen 29 mg/dL (7-17); Carbon Dioxide 19 mmol/L (22-30); Chloride 114 mmol/L (98-107); Glucose 90 mg/dL (65-110); Potassium 3.6 mmol/L (3.4-5.0); Sodium 137 mmol/L (137-145)
--- NOTE | 2025-10-27 12:51 | P.PNGS_ITS ---
Progress Note: A&P Assessment and Plan (1) Unstageable pressure ulcer of sacral region: Code(s): L89.150 - Pressure ulcer of sacral region, unstageable Status: Acute Assessment and Plan: * Patient has a necrotic stage IV sacral decubitus ulcer. There is some loose necrotic tissue within the wound that would benefit from debridement. * We would recommend excisional debridement of the necrotic sacral decubitus ulcer at the bedside today. Description of the procedure, risks, benefits, and alternatives were discussed with the patient and her . They agree with proceeding. * Continue frequent turning/repositioning * Will need continued wound care, will determine dressings after debridement. (2) Osteomyelitis: Code(s): M86.9 - Osteomyelitis, unspecified Status: Acute Assessment and Plan: * Although CT scan does not show definitive evidence of osteomyelitis, there is a tiny area of bone exposed in the base of the wound that raises concern for osteomyelitis. Treatment for this would require longer-term antibiotics, up to 6 weeks. Could consider ID consultation for recommendations. Plan Discussed patient's case and plan of care with Dr. Gonzales. Subjective Subjective Date/Time Seen: 10/27/25 12:51 Patient reports: no new complaints and afebrile Interval history: No acute changes overnight. Exam Const: General: comfortable and no acute distress Orientation/consciousness: patient oriented x3 GI: Other: Large stage IV sacral decubitus ulcer with a tiny area of bone exposed in the base of the wound and about 50% of the wound with pink granulation tissue. There is about 50% of the wound with loose dowell and yellow necrotic tissue and slough in the wound bed. No purulent drainage or surrounding erythema of the skin around the ulcer. This ulcer does extend to about 2-3 cm away from the anal verge. Objective Data Vital Signs Vital Signs: Vital Signs - 24 hr 10/26/25 13:33 10/26/25 15:21 10/26/25 16:41 Temperature 99.2 F Pulse Rate 75 78 77 Respiratory Rate 17 20 20 Blood Pressure 134/63 142/63 H Pulse Oximetry 99 97 98 Oxygen Delivery Room Air 10/26/25 16:43 10/26/25 17:00 10/26/25 17:17 Temperature 99.7 F H 98.7 F Pulse Rate 72 76 80 Respiratory Rate 21 H 20 18 Blood Pressure 142/63 H 142/72 H 142/72 H Pulse Oximetry 97 99 97 Oxygen Delivery 10/26/25 18:35 10/26/25 20:00 10/26/25 20:15 Temperature 98.5 F 99.1 F Pulse Rate 70 69 Respiratory Rate 17 18 Blood Pressure 158/68 H 154/63 H Pulse Oximetry 100 97 Oxygen Delivery Room Air 10/27/25 06:00 Temperature 99.1 F Pulse Rate 84 Respiratory Rate 16 Blood Pressure 158/74 H Pulse Oximetry 99 Oxygen Delivery Intake/Output Intake/Output: Intake & Output 10/24/25 10/25/25 10/26/25 10/27/25 23:59 23:59 23:59 23:59 Intake Total 2600 200 Balance 2600 200 Meds/Results Medications: Active Medications Generic Name Dose Route Start Last Admin Trade Name Freq PRN Reason Stop Dose Admin Hydralazine HCl 10 mg 10/26/25 23:13 Hydralazine Hcl 20 Mg/Ml Vial IV PUSH Q8H PRN Blood Pressure - High Cefepime HCl 1 gm/ Sodium 50 mls @ 100 mls/hr 10/27/25 17:00 Chloride IVPB Q24H JACQUI Metronidazole 500 mg in 100 mls @ 100 mls/hr 10/26/25 23:05 10/27/25 06:59 Flagyl 500 Mg/Iso Soln 100 Ml IVPB Infused Q8HR JACQUI Infusion Sodium Chloride 1,000 mls @ 75 mls/hr 10/26/25 23:05 10/26/25 23:41 Normal Saline Iv IV CONT 75 mls/hr .[id number] JACQUI Administration Vancomycin HCl 1 each 10/26/25 16:25 Vancomycin For Acute Kidney Injury IVPB PRN PRN Vancomycin Protocol Radiology Results: ITS Impressions Abdomen/Pelvis CT 10/26/25 16:11 IMPRESSION: 1. Large decubitus wound extending from the sacrococcygeal junction caudally to the gluteal crease. The depth of the defect is approximately 1.7 cm, although there is soft tissue attenuation extending to the posterior coccygeal margin. No definite osteomyelitis however. Correlate with follow-up imaging; if osteomyelitis is a clinical concern, MRI is recommended. 2. Moderate to large amount of stool in the rectal vault with thickened appearance of the rectal wall which could represent developing stercoral colitis. Abdomen Ultrasound 10/27/25 08:30 Impression: 1. Mild hepatic steatosis Labs Labs: Laboratory Results - last 24 hr 10/26/25 10/26/25 10/26/25 14:44 16:58 20:03 WBC 13.4 H RBC 2.83 L Hgb 8.1 L Hct 25.3 L MCV 89.4 MCH 28.6 MCHC 32.0 RDW 16.0 H Plt Count 266 MPV 9.7 Immature Gran % (Auto) 0.8 H Neut % (Auto) 78.3 H Lymph % (Auto) 8.1 L [place] % (Auto) 10.3 H Eos % (Auto) 2.1 Baso % (Auto) 0.4 Lymph # (Auto) 1.09 [place] # (Auto) 1.4 H Eos # (Auto) 0.3 Baso # (Auto) 0.1 Abs Immat Gran (auto) 0.11 H Absolute Neuts (auto) 10.5 H Absolute Nucleated RBC 0.000 Nucleated RBC % 0.0 PT 15.6 H INR 1.2 APTT 36.1 Sodium 135 L Potassium 3.8 Chloride 107 Carbon Dioxide 26 Anion Gap 2 L BUN 34 H D Creatinine 2.02 H Estim Creat Clear Calc 21 Estimated GFR 24 L Glucose 174 H POC Capillary Glucose 122 H Lactic Acid 1.7 Calcium 7.9 L Magnesium 1.9 Total Bilirubin 0.9 AST 78 H ALT 76 H Alkaline Phosphatase 229 H C-Reactive Protein 8.4 H Total Protein 5.6 L Albumin 2.4 L Vitamin D 25-Hydroxy < 12.8 TSH (Reflex) 1.840 Urine Color Yellow Urine Appearance Cloudy H Urine pH 5.5 Ur Specific [place] 1.016 Urine Protein 3+ H Urine Glucose (UA) Negative Urine Ketones Negative Ur Blood (Man) 1+ H Urine Nitrate Negative Urine Bilirubin Negative Urine Urobilinogen 1.0 Add Ur Microanalysis Reviewed Leukocyte Esterase Rfl 2+ H Urine RBC 0-2 Urine WBC >100 H Ur Squamous Epith Cells None seen Urine Bacteria 4+ H Urine Casts 11-20 Hyaline Casts Present Hepatitis A IgM Ab Negative Hep Bs Antigen Negative Hep B Core IgM Ab Negative Hepatitis C Ab Screen Negative 10/27/25 10/27/25 10/27/25 06:14 06:14 06:15 WBC 11.6 H RBC 2.86 L Hgb 8.0 L Hct 26.4 L MCV 92.3 MCH 28.0 MCHC 30.3 L RDW 15.9 H Plt Count 256 MPV 10.2 Immature Gran % (Auto) Neut % (Auto) Lymph % (Auto) [place] % (Auto) Eos % (Auto) Baso % (Auto) Lymph # (Auto) [place] # (Auto) Eos # (Auto) Baso # (Auto) Abs Immat Gran (auto) Absolute Neuts (auto) Absolute Nucleated RBC Nucleated RBC % PT INR APTT Sodium 137 Potassium 3.6 Chloride 114 H Carbon Dioxide 19 L Anion Gap 4 BUN 29 H Creatinine 1.85 H Estim Creat Clear Calc 23 Estimated GFR 27 L Glucose 90 POC Capillary Glucose Lactic Acid Calcium Cancelled 7.7 L Magnesium Total Bilirubin AST ALT Alkaline Phosphatase C-Reactive Protein Total Protein Albumin Vitamin D 25-Hydroxy TSH (Reflex) Urine Color Urine Appearance Urine pH Ur Specific [place] Urine Protein Urine Glucose (UA) Urine Ketones Ur Blood (Man) Urine Nitrate Urine Bilirubin Urine Urobilinogen Add Ur Microanalysis Leukocyte Esterase Rfl Urine RBC Urine WBC Ur Squamous Epith Cells Urine Bacteria Urine Casts Hyaline Casts Hepatitis A IgM Ab Hep Bs Antigen Hep B Core IgM Ab Hepatitis C Ab Screen
[2025-10-27] MEDS: SODIUM CHLORIDE 0.9% IV 1,000 ML 75 ML IV CONT (13:10)
--- NOTE | 2025-10-27 13:57 | P.PNIM_ITS ---
Assessment and Plan Assessment and Plan (1) Unstageable pressure ulcer of sacral region: Code(s): L89.150 - Pressure ulcer of sacral region, unstageable Status: Acute Assessment and Plan: -the patient was seen by surgery upon admission and was seen previously a month ago. One month ago she was treated conservatively with antibiotics and wound management. However now she appears to have some eschar tissue with some foul- smelling drainage .-her white count is now 13.4. -continue with cefepime, Flagyl, and vancomycin. -blood and wound cultures are pending. -the patient was bolused with 6 L of fluid. Please monitor for fluid overload. -continue with IV fluids. -patient most likely will need surgical debridement. surgery consulted: * We would recommend excisional debridement of the necrotic sacral decubitus ulcer at the bedside today. Description of the procedure, risks, benefits, and alternatives were discussed with the patient and her . They agree with proceeding. (2) UTI (urinary tract infection): Code(s): N39.0 - Urinary tract infection, site not specified Status: Acute Assessment and Plan: -the patient is already on cefepime and vancomycin. -urine and blood cultures are pending. -she had 2+ leukocytes and urine wbc's greater than 100. -she could possibly have E coli as she is wearing a depends and has diarrhea stools. follow urine c/s (3) Mixed hyperlipidemia: Code(s): E78.2 - Mixed hyperlipidemia Status: Acute Assessment and Plan: -patient is NPO at this time for possible surgical debridement. -resume atorvastatin when no longer NPO. (4) Hypertension: Qualifiers: Hypertension type: primary hypertension Qualified Code(s): I10 - Essential (primary) hypertension Code(s): I10 - Essential (primary) hypertension Status: Chronic Assessment and Plan: The patient is currently NPO. Her home medications are on hold. Please verify her home medications. -p.r.n. Hydralazine with parameters. (5) Anxiety: Code(s): F41.9 - Anxiety disorder, unspecified Status: Acute Assessment and Plan: -the patient is NPO at this time. Resume home medications when she is no longer NPO. (6) Transaminitis: Code(s): R74.01 - Elevation of levels of liver transaminase levels Status: Acute Assessment and Plan: -unclear if this is related medication or infection. -abdominal ultrasound has been ordered. -hepatitis panel ordered. (7) Anemia in chronic kidney disease (CKD): Code(s): N18.9 - Chronic kidney disease, unspecified; D63.1 - Anemia in chronic kidney disease Status: Acute Assessment and Plan: -her H&H is stable this point. Her H&H is 8.1 and 25.3. -please continue with her home medications. Patient appears to be on ferrous sulfate and Procrit. -the patient has been seen by Nephrology in the past. -her BUN and creatinine are above baseline. -her BUN is 34, creatinine is 2.02 and GFR is 24. -continue to monitor BMP daily. (8) Hypocalcemia: Code(s): E83.51 - Hypocalcemia Status: Acute Assessment and Plan: -patient's calcium level 7.9 this appears to be her baseline. -magnesium ordered -ionized calcium ordered. -check PTH. -check vitamin-D level. Medical Record Review I have reviewed the following patient records and this information was taken into consideration when formulating the assessment and plan.: previous labs and previous clinic visits Time Spent With Patient Time with patient: Greater than 35 minutes Subjective Date/time seen: 10/27/25 0900 Interval history: This is a 75-year-old female patient who resides at [facility]. The patient has a chronic sacral wound. However she comes in today from the [facility] facility via EMS due to a sacral wound that has been draining with a foul smell. She has a history of diabetes, chronic kidney disease, hypertension, congestive heart failure in his CVA. Information was obtained from old records and some from the patient. She is a poor historian. Abdominal/pelvis CT was read as following1. Large decubitus wound extending from the sacrococcygeal junction caudally to the gluteal crease. The depth of the defect is approximately 1.7 cm, although there is soft tissue attenuation extending to the posterior coccygeal margin. No definite osteomyelitis however. Correlate with follow-up imaging; if osteomyelitis is a clinical concern, MRI is recommended. 2. Moderate to large amount of stool in the rectal vault with thickened appearance of the rectal wall which could represent developing stercoral colitis. The patient was started on IV fluids, vancomycin, and cefepime. Surgery has been consulted from the emergency room and has already seen the patient. Her white count was noted to be 13.4. H&H is 8.1 and 25.3 which is her baseline. Sodium was slightly low 135. In BUN is 34 and creatinine is 2.02 with a GFR of 24. Her renal function has improved from her baseline. Glucose 174 with a repeat point of care glucose of 122. Calcium is low at 7.9. Liver enzymes are mildly elevated. Urine has 3+ protein, urine blood 1+, leukocyte esterase 2+, 4+ bacteria, and wbc's greater than 100. T-max 99.7?. Heart rate 69 and blood pressure 154/63. Pulse ox 97% on room air. The patient is being admitted to inpatient status on the date of service of 10/26/2025. pt is mili nd examined. surgery consulted. She appears to be comfortable. denies any acute issues. Review of Systems Review of Systems: The patient is a poor historian. The patient was able to supply some of the history and much of the information was obtained from old records. Constitutional: Constitutional: Reports as per HPI and Reports no additional constitutional complaints Eyes: Eyes: Reports as per HPI and Reports no additional eye complaints ENT: Reports system reviewed and no additional complaints, except as documented and Reports Normal hearing present Cardiovascular: Cardiovascular: Reports no additional cardiovascular complaints Respiratory: Respiratory: Reports as per HPI and Reports no additional respiratory complaints Gastrointestinal: Gastrointestinal: Reports as per HPI and Reports no additional gastrointestinal complaints Genitourinary: Genitourinary: Reports no additional female genitourinary complaints Musculoskeletal: Musculoskeletal: Reports no additional musculoskeletal comp laints Integumentary/Breasts: Skin/Breast: Reports system reviewed and no additional complaints, except as docu Neurologic: Reports system reviewed and no additional complaints, except as documented and Reports Normal hearing present Psychiatric: Psychiatric: Reports no additional psychiatric complaints and Reports as per HPI Hematologic/Lymphatic: Hematologic/Lymphatic: Reports no additional hematologic/lymphatic complaints Allergic/Immunologic: Allergic/Immunologic: Reports no additional allergic/immunologic complaints Exam Const: General: cooperative, comfortable, no acute distress, well developed, awake, Physically active, average body habitus and well nourished Nutritional Appearance: average body habitus and well nourished Orientation/consciousness: oriented to person and oriented to place HENMT: Head: normal to inspection, No palpable skull fracture present, normocephalic, atraumatic and abrasion Ears: hearing grossly normal bilaterally Eyes: General: appearance normal, both eyes and all related structures Alignment and Position: alignment normal Periorbital: periorbital findings normal Eyelids: eyelids normal Conjunctivae: conjunctivae normal Neck: Neck: normal visual inspection, full ROM and no lymphadenopathy Chest: Chest palpation & inspection: normal inspection of the chest Resp: Effort & Inspection: normal respiratory effort Auscultation: clear to auscultation bilaterally Cardio: Palpation: normal PMI Rate: regular rate Rhythm: regular rhythm Heart sounds: S1 normal heart sound present and S2 normal heart sound present Peripheral pulses: Peripheral pulses 2+ throughout GI: Inspection: normal to inspection Auscultation: normal bowel sounds Rectal Exam: deferred : General: Yes no CVA tenderness Back/Spine/Pelvis: Back: no CVA tenderness Skin: General skin exam: normal color Lesions: no lesions Rashes: no rashes Trauma: no lacerations or abrasions Other: prominent defect along the posterior margin of the lower pelvis consistent with open wound measures 7.0 x 4.1 x 1.7 cm in the cephalocaudal by transverse by AP dimensions as per CT. The patient has an unstageable pressure sacral ulcer. She has necrotic tissue with Moist diamond brown slough throughout the wound. No obvious bone exposure. Neuro: General: oriented to person and oriented to place Cranial nerves: Yes Normal hearing present Cognition (Neuro): normal cognition Speech: normal speech Motor exam (neuro): 5/5 motor strength present throughout Sensory Exam: normal sensation Other: Patient is slow to speak. Patient's right pupil is dilated and her left pupil was constricted. Unsure if this is related to her previous cataract surgery. Extrem: General: normal to inspection Right upper extremity: normal to inspection and shoulder/upper arm Left upper extremity: normal to inspection and shoulder/upper arm Right lower extremity: normal to inspection Left lower extremity: normal to inspection Other: Chronic venous stasis to lower extremities with discoloration to lower extremities. Psych: Appearance: grossly normal Mental Status: mental status grossly normal Speech and movement: Normal speech and movement present Affect: normal affect Attitude: cooperative Thought process: Normal thought process present Objective Data Vital Signs Vital Signs: Vital Signs - 24 hr 10/26/25 15:21 10/26/25 16:41 10/26/25 16:43 Temperature 99.7 F H Pulse Rate 78 77 72 Respiratory Rate 20 20 21 H Blood Pressure 134/63 142/63 H 142/63 H Pulse Oximetry 97 98 97 Oxygen Delivery 10/26/25 17:00 10/26/25 17:17 10/26/25 18:35 Temperature 98.7 F 98.5 F Pulse Rate 76 80 70 Respiratory Rate 20 18 17 Blood Pressure 142/72 H 142/72 H 158/68 H Pulse Oximetry 99 97 100 Oxygen Delivery 10/26/25 20:00 10/26/25 20:15 10/27/25 06:00 Temperature 99.1 F 99.1 F Pulse Rate 69 84 Respiratory Rate 18 16 Blood Pressure 154/63 H 158/74 H Pulse Oximetry 97 99 Oxygen Delivery Room Air 10/27/25 11:35 Temperature Pulse Rate Respiratory Rate Blood Pressure Pulse Oximetry Oxygen Delivery Room Air Intake/Output Intake/Output: Intake & Output 10/24/25 10/25/25 10/26/25 10/27/25 23:59 23:59 23:59 23:59 Intake Total 2600 200 Balance 2600 200 Meds/Results Medications: Active Medications Generic Name Dose Route Start Last Admin Trade Name Freq PRN Reason Stop Dose Admin Hydralazine HCl 10 mg 10/26/25 23:13 Hydralazine Hcl 20 Mg/Ml Vial IV PUSH Q8H PRN Blood Pressure - High Cefepime HCl 1 gm/ Sodium 50 mls @ 100 mls/hr 10/27/25 17:00 Chloride IVPB Q24H JACQUI Metronidazole 500 mg in 100 mls @ 100 mls/hr 10/26/25 23:05 10/27/25 06:59 Flagyl 500 Mg/Iso Soln 100 Ml IVPB Infused Q8HR JACQUI Infusion Sodium Chloride 1,000 mls @ 75 mls/hr 10/26/25 23:05 10/26/25 23:41 Normal Saline Iv IV CONT 75 mls/hr .[id number] JACQUI Administration Vancomycin HCl 1 each 10/26/25 16:25 Vancomycin For Acute Kidney Injury IVPB PRN PRN Vancomycin Protocol Radiology Results: ITS Impressions Abdomen/Pelvis CT 10/26/25 16:11 IMPRESSION: 1. Large decubitus wound extending from the sacrococcygeal junction caudally to the gluteal crease. The depth of the defect is approximately 1.7 cm, although there is soft tissue attenuation extending to the posterior coccygeal margin. No definite osteomyelitis however. Correlate with follow-up imaging; if osteomyelitis is a clinical concern, MRI is recommended. 2. Moderate to large amount of stool in the rectal vault with thickened appearance of the rectal wall which could represent developing stercoral colitis. Abdomen Ultrasound 10/27/25 08:30 Impression: 1. Mild hepatic steatosis Labs Labs: Laboratory Results - last 24 hr 10/26/25 10/26/25 10/26/25 14:44 16:58 20:03 WBC 13.4 H RBC 2.83 L Hgb 8.1 L Hct 25.3 L MCV 89.4 MCH 28.6 MCHC 32.0 RDW 16.0 H Plt Count 266 MPV 9.7 Immature Gran % (Auto) 0.8 H Neut % (Auto) 78.3 H Lymph % (Auto) 8.1 L [place] % (Auto) 10.3 H Eos % (Auto) 2.1 Baso % (Auto) 0.4 Lymph # (Auto) 1.09 [place] # (Auto) 1.4 H Eos # (Auto) 0.3 Baso # (Auto) 0.1 Abs Immat Gran (auto) 0.11 H Absolute Neuts (auto) 10.5 H Absolute Nucleated RBC 0.000 Nucleated RBC % 0.0 PT 15.6 H INR 1.2 APTT 36.1 Sodium 135 L Potassium 3.8 Chloride 107 Carbon Dioxide 26 Anion Gap 2 L BUN 34 H D Creatinine 2.02 H Estim Creat Clear Calc 21 Estimated GFR 24 L Glucose 174 H POC Capillary Glucose 122 H Lactic Acid 1.7 Calcium 7.9 L Magnesium 1.9 Total Bilirubin 0.9 AST 78 H ALT 76 H Alkaline Phosphatase 229 H C-Reactive Protein 8.4 H Total Protein 5.6 L Albumin 2.4 L Vitamin D 25-Hydroxy < 12.8 TSH (Reflex) 1.840 Urine Color Yellow Urine Appearance Cloudy H Urine pH 5.5 Ur Specific [place] 1.016 Urine Protein 3+ H Urine Glucose (UA) Negative Urine Ketones Negative Ur Blood (Man) 1+ H Urine Nitrate Negative Urine Bilirubin Negative Urine Urobilinogen 1.0 Add Ur Microanalysis Reviewed Leukocyte Esterase Rfl 2+ H Urine RBC 0-2 Urine WBC >100 H Ur Squamous Epith Cells None seen Urine Bacteria 4+ H Urine Casts 11-20 Hyaline Casts Present Hepatitis A IgM Ab Negative Hep Bs Antigen Negative Hep B Core IgM Ab Negative Hepatitis C Ab Screen Negative 10/27/25 10/27/25 10/27/25 06:14 06:14 06:15 WBC 11.6 H RBC 2.86 L Hgb 8.0 L Hct 26.4 L MCV 92.3 MCH 28.0 MCHC 30.3 L RDW 15.9 H Plt Count 256 MPV 10.2 Immature Gran % (Auto) Neut % (Auto) Lymph % (Auto) [place] % (Auto) Eos % (Auto) Baso % (Auto) Lymph # (Auto) [place] # (Auto) Eos # (Auto) Baso # (Auto) Abs Immat Gran (auto) Absolute Neuts (auto) Absolute Nucleated RBC Nucleated RBC % PT INR APTT Sodium 137 Potassium 3.6 Chloride 114 H Carbon Dioxide 19 L Anion Gap 4 BUN 29 H Creatinine 1.85 H Estim Creat Clear Calc 23 Estimated GFR 27 L Glucose 90 POC Capillary Glucose Lactic Acid Calcium Cancelled 7.7 L Magnesium Total Bilirubin AST ALT Alkaline Phosphatase C-Reactive Protein Total Protein Albumin Vitamin D 25-Hydroxy TSH (Reflex) Urine Color Urine Appearance Urine pH Ur Specific [place] Urine Protein Urine Glucose (UA) Urine Ketones Ur Blood (Man) Urine Nitrate Urine Bilirubin Urine Urobilinogen Add Ur Microanalysis Leukocyte Esterase Rfl Urine RBC Urine WBC Ur Squamous Epith Cells Urine Bacteria Urine Casts Hyaline Casts Hepatitis A IgM Ab Hep Bs Antigen Hep B Core IgM Ab Hepatitis C Ab Screen Quality VTE Prophylaxis VTE prophylaxis: mechanical ordered
[2025-10-27 14:00] VITALS: BP 180/80; PULSE 80; RESP 18; TEMP 37; O2SAT 98
[2025-10-27 14:05] VITALS: BMI 33.0
--- NOTE | 2025-10-27 14:33 | P.OP_ITS ---
Procedure Note - Detailed Date of Procedure 10/27/25 Pre-op Diagnosis Stage IV necrotic sacral decubitus ulcer Post-op Diagnosis Same Procedure Performed Excisional debridement necrotic sacral decubitus ulcer including skin, subcutaneous tissue, muscle, and fascia, measuring 7 cm x 10 cm x 2 cm Surgeon Vee Hunter APRN [employer] Software Engineer REY Hendricks Anesthesia None Indications This is a 75 yo female who presented with a necrotic stage IV sacral decubitus ulcer. Discussions regarding treatment were had with the patient and her , and decision was made to proceed with bedside debridement. Findings Stage IV sacral decubitus ulcer Description of Procedure The patient was placed in the left lateral position in the bed. Following this, sterile prep was carried out over the wound with iodine swabs and the area was draped. I then used scissors to carry out debridement of the loose necrotic tissue within the base of the wound. This was carried down to the fascia over the sacrum. I then moved to the left lateral aspect of the wound where there was some more superficial devitalized tissue that was debrided involving skin, subcutaneous tissue, and muscle. This was carried down to healthier appearing bleeding tissue. The total area of debridement measured 7 x 10 x 2 cm. The wound was then inspected again and there was still a very thin layer of dowell tissue overlying the sacrum in the center of the wound and some areas of superficial yellow slough, but no significant areas of necrotic tissue within the wound. Hemostasis was achieved with manual pressure. Silver gel was then applied and the wound was packed with 4x4 gauze and covered with an ABD and medipore tape. Estimated Blood Loss 1 Drains No Packing Yes (4x4 gauze) Pathology None sent Complications None Condition Stable Disposition No change [facility] Billing Surgery - Charge Forward: Surgery Billing
[2025-10-27] MEDS: FERROUS SULFATE 325 MG TABLET BY MOUTH (18:06)
[2025-10-27] MEDS: CEFEPIME 1 GM in SODIUM CHLORIDE 0.9% IV 50 ML 100 ML IVPB (18:06)
[2025-10-27] MEDS: METOPROLOL TARTRATE 50 MG TAB PO (21:35)
[2025-10-27] MEDS: VANCOMYCIN 1,250 MG/NS 250 ML 1,250 MG/250 ML BAG 166.67 MG IVPB (21:35)
[2025-10-27] MEDS: SOD HYPOCHLORITE 1/4 STRENGTH 473 ML 1 APPLIC TOPICAL (21:38)
[2025-10-27 22:00] VITALS: BP 161/53; PULSE 105; RESP 20; TEMP 36.7; O2SAT 99
[2025-10-28] MEDS: metroNIDAZOLE 500 MG/ISO 100ML 500 MG/100 ML BAG 100 MG IVPB ×3 (05:02→21:36)
[2025-10-28] MEDS: SODIUM CHLORIDE 0.9% IV 1,000 ML 75 ML IV CONT (05:02)
[2025-10-28 06:00] VITALS: BP 188/78; PULSE 66; RESP 20; TEMP 36.8; O2SAT 99
[2025-10-28 07:17] LABS: Estimated CRCL calculation 24 ml/min; Estimated Glomerular Filt Rate 28
[2025-10-28 08:50] VITALS: PULSE 66; RESP 20; O2SAT 99
[2025-10-28 08:51] LABS: Hematocrit 24.9 % (37.0-47.0); Hemoglobin 7.8 g/dL (12.0-15.0); Mean Corpuscular HGB Conc 31.3 g/dl (32-36); Mean Corpuscular Hemoglobin 28.2 pg (26-34); Mean Corpuscular Volume 89.9 fl (80-100); Platelet Count Result 242 k/mm3 (150-375); Red Blood Count 2.77 M/mm3 (4.2-5.4); White Blood Count 9.3 K/mm3 (4.5-10.0)
[2025-10-28] MEDS: ASPIRIN 81 MG CHEWABLE TABLET PO (08:56)
[2025-10-28] MEDS: ATORVASTATIN 40 MG TABLET 80 MG PO (08:56)
[2025-10-28] MEDS: ASCORBIC ACID 500 MG TABLET PO (08:56)
[2025-10-28] MEDS: CITALOPRAM HYDROBROMIDE 20 MG TABLET PO (09:01)
[2025-10-28] MEDS: CALCIUM/VITAMIN D 500 MG/5 MCG (200 I.U.) TABLET PO (09:01)
[2025-10-28] MEDS: CYANOCOBALAMIN 1,000 MCG TABLET 2000 MCG PO (09:02)
[2025-10-28] MEDS: FERROUS SULFATE 325 MG TABLET BY MOUTH ×2 (09:02→17:04)
[2025-10-28 09:03] LABS: Anion Gap 4 mmol/L (4-12); Blood Urea Nitrogen 33 mg/dL (7-17); Calcium 7.6 mg/dL (8.4-10.2); Carbon Dioxide 20 mmol/L (22-30); Chloride 116 mmol/L (98-107); Glucose 90 mg/dL (65-110); Potassium 3.4 mmol/L (3.4-5.0); Sodium 140 mmol/L (137-145)
[2025-10-28] MEDS: LOSARTAN POTASSIUM 25 MG TABLET PO (09:03)
[2025-10-28] MEDS: ISOSORBIDE MONONITRATE 30 MG TAB.ER.24H PO (09:03)
[2025-10-28] MEDS: METOPROLOL TARTRATE 50 MG TAB PO ×2 (09:03→21:36)
[2025-10-28 11:08] LABS: Calcium, Urine 1.3 mg/dL (Not Estab.)
--- NOTE | 2025-10-28 12:21 | P.PNGS_ITS ---
Progress Note: A&P Assessment and Plan (1) Unstageable pressure ulcer of sacral region: Code(s): L89.150 - Pressure ulcer of sacral region, unstageable Status: Acute Assessment and Plan: * Debridement of sacral wound yesterday. Appears to be doing well today. WBC normalized. No new complaints. * Continue frequent turning/repositioning * Continue daily wound care with Dakin soaked gauze gauze twice daily. * Continue PT/OT. (2) Osteomyelitis: Code(s): M86.9 - Osteomyelitis, unspecified Status: Acute Assessment and Plan: * Although CT scan does not show definitive evidence of osteomyelitis, there is a tiny area of bone exposed in the base of the wound that raises concern for osteomyelitis. Treatment for this would require longer-term antibiotics, up to 6 weeks. Could consider ID consultation for recommendations. Plan Discussed patient's case and plan of care with Dr. Gonzales. Subjective Subjective Date/Time Seen: 10/28/25 12:21 Post Op day: 1 (Debridement of sacral wound) Patient reports: no new complaints, tolerating a regular diet (diabetic), voiding w/o difficulty and bowel movement Interval history: No acute events overnight. Patient continues to improve clinically. WBC normalized to 9.3. Exam Const: General: comfortable and no acute distress Resp: Effort & Inspection: normal respiratory effort Cardio: Rate: regular rate Skin: Other: Sacral wound dressing dry and intact. Objective Data Vital Signs Vital Signs: Vital Signs - 24 hr 10/27/25 14:00 10/27/25 22:00 10/28/25 06:00 Temperature 98.6 F 98.0 F 98.2 F Pulse Rate 80 105 H 66 Respiratory Rate 18 20 20 Blood Pressure 180/80 H 161/53 H 188/78 H Pulse Oximetry 98 99 99 Oxygen Delivery 10/28/25 08:50 10/28/25 09:31 Temperature Pulse Rate 66 Respiratory Rate 20 Blood Pressure Pulse Oximetry 99 Oxygen Delivery Room Air Room Air Intake/Output Intake/Output: Intake & Output 10/25/25 10/26/25 10/27/25 10/28/25 23:59 23:59 23:59 23:59 Intake Total 2600 1300 1440 Output Total 200 450 Balance 2600 1100 990 Meds/Results Medications: Active Medications Generic Name Dose Route Start Last Admin Trade Name Freq PRN Reason Stop Dose Admin Ascorbic Acid 500 mg 10/28/25 09:00 10/28/25 08:56 Ascorbic Acid 500 Mg Tablet PO 500 mg DAILY JACQUI Administration Aspirin 81 mg 10/28/25 08:00 10/28/25 08:56 Aspirin 81 Mg Chewable Tablet PO 81 mg DAILY@0800 JACQUI Administration Atorvastatin Calcium 80 mg 10/28/25 09:00 10/28/25 08:56 Atorvastatin 40 Mg Tablet PO 80 mg DAILY JACQUI Administration Calcium Carbonate 500 mg 10/28/25 09:00 10/28/25 09:01 Calcium/Vitamin D 500 Mg/5 Mcg (200 I.U.) Tablet PO 500 mg QAM JACQUI Administration Citalopram Hydrobromide 20 mg 10/28/25 09:00 10/28/25 09:01 Citalopram Hydrobromide 20 Mg Tablet PO 20 mg DAILY JACQUI Administration Cyanocobalamin 2,000 mcg 10/28/25 09:00 10/28/25 09:02 Cyanocobalamin 1,000 Mcg Tablet PO 2,000 mcg QAM JACQUI Administration Ferrous Sulfate 325 mg 10/27/25 17:00 10/28/25 09:02 Ferrous Sulfate 325 Mg Tablet BY MOUTH 325 mg BID JACQUI Administration Hydralazine HCl 10 mg 10/26/25 23:13 Hydralazine Hcl 20 Mg/Ml Vial IV PUSH Q8H PRN Blood Pressure - High Cefepime HCl 1 gm/ Sodium 50 mls @ 100 mls/hr 10/27/25 17:00 10/27/25 18:06 Chloride IVPB 100 mls/hr Q24H JACQUI Administration Metronidazole 500 mg in 100 mls @ 100 mls/hr 10/26/25 23:05 10/28/25 05:02 Flagyl 500 Mg/Iso Soln 100 Ml IVPB 100 mls/hr Q8HR JACQUI Administration Sodium Chloride 1,000 mls @ 75 mls/hr 10/26/25 23:05 10/28/25 05:02 Normal Saline Iv IV CONT 75 mls/hr .[id number] JACQUI Administration Isosorbide Mononitrate 30 mg 10/28/25 09:00 10/28/25 09:03 Isosorbide Mononitrate 30 Mg Tab.Er.24h PO 30 mg DAILY JACQUI Administration Losartan Potassium 25 mg 10/28/25 09:00 10/28/25 09:03 Losartan Potassium 25 Mg Tablet PO 25 mg DAILY JACQUI Administration Metoprolol Tartrate 50 mg 10/27/25 21:00 10/28/25 09:03 Metoprolol Tartrate 50 Mg Tab PO 50 mg Q12HR JACQUI Administration Polyethylene Glycol 17 gm 10/27/25 15:00 10/28/25 09:03 Polyethylene Glycol 3350 17 Gm Powd.Pack PO 17 gm QAM JACQUI Administration Sodium Hypochlorite 1 applic 10/27/25 21:00 10/27/25 21:38 Sod Hypochlorite 1/4 Strength 473 Ml TOPICAL 1 applic Q12HR JACQUI Administration Vancomycin HCl 1 each 10/26/25 16:25 Vancomycin For Acute Kidney Injury IVPB PRN PRN Vancomycin Protocol Radiology Results: ITS Impressions Abdomen/Pelvis CT 10/26/25 16:11 IMPRESSION: 1. Large decubitus wound extending from the sacrococcygeal junction caudally to the gluteal crease. The depth of the defect is approximately 1.7 cm, although there is soft tissue attenuation extending to the posterior coccygeal margin. No definite osteomyelitis however. Correlate with follow-up imaging; if osteomyelitis is a clinical concern, MRI is recommended. 2. Moderate to large amount of stool in the rectal vault with thickened appearance of the rectal wall which could represent developing stercoral colitis. Abdomen Ultrasound 10/27/25 08:30 Impression: 1. Mild hepatic steatosis Labs Labs: Laboratory Results - last 24 hr 10/27/25 10/27/25 10/28/25 12:35 17:10 06:36 WBC 9.3 RBC 2.77 L Hgb 7.8 L Hct 24.9 L MCV 89.9 MCH 28.2 MCHC 31.3 L RDW 15.8 H Plt Count 242 MPV 9.9 Sodium Potassium Chloride Carbon Dioxide Anion Gap BUN Creatinine Estim Creat Clear Calc Estimated GFR Glucose Calcium Urine Calcium 1.3 Random Vancomycin 8.1 L 10/28/25 06:39 WBC RBC Hgb Hct MCV MCH MCHC RDW Plt Count MPV Sodium 140 Potassium 3.4 Chloride 116 H Carbon Dioxide 20 L Anion Gap 4 BUN 33 H Creatinine 1.75 H Estim Creat Clear Calc 24 Estimated GFR 28 L Glucose 90 Calcium 7.6 L Urine Calcium Random Vancomycin
[2025-10-28 13:52] VITALS: BP 129/70; PULSE 66; RESP 18; TEMP 36.9; O2SAT 100
--- NOTE | 2025-10-28 14:30 | PCOTNOTE ---
Patient unavailable for treatment session at this time. Patient having lower body mark-hygiene performed supine in bed, wound care present, performing dressing change.
--- NOTE | 2025-10-28 14:51 | P.PNIM_ITS ---
Assessment and Plan Assessment and Plan (1) Unstageable pressure ulcer of sacral region: Code(s): L89.150 - Pressure ulcer of sacral region, unstageable Status: Acute Assessment and Plan: -the patient was seen by surgery upon admission and was seen previously a month ago. One month ago she was treated conservatively with antibiotics and wound management. However now she appears to have some eschar tissue with some foul- smelling drainage .-her white count is now 13.4. -continue with cefepime, Flagyl, and vancomycin. -blood and wound cultures are pending. -the patient was bolused with 6 L of fluid. Please monitor for fluid overload. -continue with IV fluids. -patient most likely will need surgical debridement. surgery consulted: * We would recommend excisional debridement of the necrotic sacral decubitus ulcer at the bedside today. Description of the procedure, risks, benefits, and alternatives were discussed with the patient and her . They agree with proceeding. 10/28 Debridement of sacral wound yesterday. WBC wnl. per surgery note: * Although CT scan does not show definitive evidence of osteomyelitis, there is a tiny area of bone exposed in the base of the wound that raises concern for osteomyelitis. Treatment for this would require longer-term antibiotics, up to 6 weeks. Could consider ID consultation for recommendations. * will consult ID for review and recommendations (2) UTI (urinary tract infection): Code(s): N39.0 - Urinary tract infection, site not specified Status: Acute Assessment and Plan: -the patient is already on cefepime and vancomycin. -urine and blood cultures are pending. -she had 2+ leukocytes and urine wbc's greater than 100. -she could possibly have E coli as she is wearing a depends and has diarrhea stools. follow urine c/s (3) Mixed hyperlipidemia: Code(s): E78.2 - Mixed hyperlipidemia Status: Acute Assessment and Plan: -patient is NPO at this time for possible surgical debridement. -resume atorvastatin when no longer NPO. (4) Hypertension: Qualifiers: Hypertension type: primary hypertension Qualified Code(s): I10 - Essential (primary) hypertension Code(s): I10 - Essential (primary) hypertension Status: Chronic Assessment and Plan: The patient is currently NPO. Her home medications are on hold. Please verify her home medications. -p.r.n. Hydralazine with parameters. (5) Anxiety: Code(s): F41.9 - Anxiety disorder, unspecified Status: Acute Assessment and Plan: -the patient is NPO at this time. Resume home medications when she is no longer NPO. (6) Transaminitis: Code(s): R74.01 - Elevation of levels of liver transaminase levels Status: Acute Assessment and Plan: -unclear if this is related medication or infection. -abdominal ultrasound has been ordered. -hepatitis panel ordered. (7) Anemia in chronic kidney disease (CKD): Code(s): N18.9 - Chronic kidney disease, unspecified; D63.1 - Anemia in chronic kidney disease Status: Acute Assessment and Plan: -her H&H is stable this point. Her H&H is 8.1 and 25.3. -please continue with her home medications. Patient appears to be on ferrous sulfate and Procrit. -the patient has been seen by Nephrology in the past. -her BUN and creatinine are above baseline. -her BUN is 34, creatinine is 2.02 and GFR is 24. -continue to monitor BMP daily. (8) Hypocalcemia: Code(s): E83.51 - Hypocalcemia Status: Acute Assessment and Plan: -patient's calcium level 7.9 this appears to be her baseline. -magnesium ordered -ionized calcium ordered. -check PTH. -check vitamin-D level. Medical Record Review I have reviewed the following patient records and this information was taken into consideration when formulating the assessment and plan.: previous labs Time Spent With Patient Time with patient: Greater than 35 minutes Subjective Date/time seen: 10/28/25 14:51 Interval history: This is a 75-year-old female patient who resides at [facility]. The patient has a chronic sacral wound. However she comes in today from the [facility] facility via EMS due to a sacral wound that has been draining with a foul smell. She has a history of diabetes, chronic kidney disease, hypertension, congestive heart failure in his CVA. Information was obtained from old records and some from the patient. She is a poor historian. Abdominal/pelvis CT was read as following1. Large decubitus wound extending from the sacrococcygeal junction caudally to the gluteal crease. The depth of the defect is approximately 1.7 cm, although there is soft tissue attenuation extending to the posterior coccygeal margin. No definite osteomyelitis however. Correlate with follow-up imaging; if osteomyelitis is a clinical concern, MRI is recommended. 2. Moderate to large amount of stool in the rectal vault with thickened appearance of the rectal wall which could represent developing stercoral colitis. The patient was started on IV fluids, vancomycin, and cefepime. Surgery has been consulted from the emergency room and has already seen the patient. Her white count was noted to be 13.4. H&H is 8.1 and 25.3 which is her baseline. Sodium was slightly low 135. In BUN is 34 and creatinine is 2.02 with a GFR of 24. Her renal function has improved from her baseline. Glucose 174 with a repeat point of care glucose of 122. Calcium is low at 7.9. Liver e nzymes are mildly elevated. Urine has 3+ protein, urine blood 1+, leukocyte esterase 2+, 4+ bacteria, and wbc's greater than 100. T-max 99.7?. Heart rate 69 and blood pressure 154/63. Pulse ox 97% on room air. The patient is being admitted to inpatient status on the date of service of 10/26/2025. pt is seen and examined. Surgery following. Debridement of sacral wound yesterday. She is doing well today. No acute complaints. Care coordination following for discharge needs. Review of Systems Review of Systems: The patient is a poor historian. The patient was able to supply some of the history and much of the information was obtained from old records. Constitutional: Constitutional: Reports as per HPI and Reports no additional constitutional complaints Eyes: Eyes: Reports as per HPI and Reports no additional eye complaints ENT: Reports system reviewed and no additional complaints, except as documented and Reports Normal hearing present Cardiovascular: Cardiovascular: Reports no additional cardiovascular complaints Respiratory: Respiratory: Reports as per HPI and Reports no additional respiratory complaints Gastrointestinal: Gastrointestinal: Reports as per HPI and Reports no additional gastrointestinal complaints Genitourinary: Genitourinary: Reports no additional female genitourinary com plaints Musculoskeletal: Musculoskeletal: Reports no additional musculoskeletal complaints Integumentary/Breasts: Skin/Breast: Reports system reviewed and no additional complaints, except as docu Neurologic: Reports system reviewed and no additional complaints, except as documented and Reports Normal hearing present Psychiatric: Psychiatric: Reports no additional psychiatric complaints and Reports as per HPI Hematologic/Lymphatic: Hematologic/Lymphatic: Reports no additional hematologic/lymphatic complaints Allergic/Immunologic: Allergic/Immunologic: Reports no additional allergic/immunologic complaints Exam Const: General: cooperative, comfortable, no acute distress, well developed, awake, Physically active, average body habitus and well nourished Nutritional Appearance: average body habitus and well nourished Orientation/consciousness: oriented to person and oriented to place HENMT: Head: normal to inspection, No palpable skull fracture present, normocephalic, atraumatic and abrasion Ears: hearing grossly normal bilaterally Eyes: General: appearance normal, both eyes and all related structures Alignment and Position: alignment normal Periorbital: periorbital findings normal Eyelids: eyelids normal Conjunctivae: conjunctivae normal Neck: Neck: normal visual inspection, full ROM and no lymphadenopathy Chest: Chest palpation & inspection: normal inspection of the chest Resp: Effort & Inspection: normal respiratory effort Auscultation: clear to auscultation bilaterally Cardio: Palpation: normal PMI Rate: regular rate Rhythm: regular rhythm Heart sounds: S1 normal heart sound present and S2 normal heart sound present Peripheral pulses: Peripheral pulses 2+ throughout GI: Inspection: normal to inspection Auscultation: normal bowel sounds Rectal Exam: deferred : General: Yes no CVA tenderness Back/Spine/Pelvis: Back: no CVA tenderness Skin: General skin exam: normal color Lesions: no lesions Rashes: no rashes Trauma: no lacerations or abrasions Other: prominent defect along the posterior margin of the lower pelvis consistent with open wound measures 7.0 x 4.1 x 1.7 cm in the cephalocaudal by transverse by AP dimensions as per CT. The patient has an unstageable pressure sacral ulcer. She has necrotic tissue with Moist diamond brown slough throughout the wound. No obvious bone exposure. Neuro: General: oriented to person and oriented to place Cranial nerves: Yes Normal hearing present Cognition (Neuro): normal cognition Speech: normal speech Motor exam (neuro): 5/5 motor strength present throughout Sensory Exam: normal sensation Other: Patient is slow to speak. Patient's right pupil is dilated and her left pupil was constricted. Unsure if this is related to her previous cataract surgery. Extrem: General: normal to inspection Right upper extremity: normal to inspection and shoulder/upper arm Left upper extremity: normal to inspection and shoulder/upper arm Right lower extremity: normal to inspection Left lower extremity: normal to inspection Other: Chronic venous stasis to lower extremities with discoloration to lower extremities. Psych: Appearance: grossly normal Mental Status: mental status grossly normal Speech and movement: Normal speech and movement present Affect: normal affect Attitude: cooperative Thought process: Normal thought process present Objective Data Vital Signs Vital Signs: Vital Signs - 24 hr 10/27/25 22:00 10/28/25 06:00 10/28/25 08:50 Temperature 98.0 F 98.2 F Pulse Rate 105 H 66 66 Respiratory Rate 20 20 20 Blood Pressure 161/53 H 188/78 H Pulse Oximetry 99 99 99 Oxygen Delivery Room Air 10/28/25 09:31 10/28/25 13:52 Temperature 98.4 F Pulse Rate 66 Respiratory Rate 18 Blood Pressure 129/70 Pulse Oximetry 100 Oxygen Delivery Room Air Intake/Output Intake/Output: Intake & Output 10/25/25 10/26/25 10/27/25 10/28/25 23:59 23:59 23:59 23:59 Intake Total 2600 1300 1558 Output Total 200 450 Balance 2600 1100 1108 Meds/Results Medications: Active Medications Generic Name Dose Route Start Last Admin Trade Name Freq PRN Reason Stop Dose Admin Ascorbic Acid 500 mg 10/28/25 09:00 10/28/25 08:56 Ascorbic Acid 500 Mg Tablet PO 500 mg DAILY JACQUI Administration Aspirin 81 mg 10/28/25 08:00 10/28/25 08:56 Aspirin 81 Mg Chewable Tablet PO 81 mg DAILY@0800 JACQUI Administration Atorvastatin Calcium 80 mg 10/28/25 09:00 10/28/25 08:56 Atorvastatin 40 Mg Tablet PO 80 mg DAILY JACQUI Administration Calcium Carbonate 500 mg 10/28/25 09:00 10/28/25 09:01 Calcium/Vitamin D 500 Mg/5 Mcg (200 I.U.) Tablet PO 500 mg QAM JACQUI Administration Citalopram Hydrobromide 20 mg 10/28/25 09:00 10/28/25 09:01 Citalopram Hydrobromide 20 Mg Tablet PO 20 mg DAILY JACQUI Administration Cyanocobalamin 2,000 mcg 10/28/25 09:00 10/28/25 09:02 Cyanocobalamin 1,000 Mcg Tablet PO 2,000 mcg QAM JACQUI Administration Ferrous Sulfate 325 mg 10/27/25 17:00 10/28/25 09:02 Ferrous Sulfate 325 Mg Tablet BY MOUTH 325 mg BID JACQUI Administration Hydralazine HCl 10 mg 10/26/25 23:13 Hydralazine Hcl 20 Mg/Ml Vial IV PUSH Q8H PRN Blood Pressure - High Cefepime HCl 1 gm/ Sodium 50 mls @ 100 mls/hr 10/27/25 17:00 10/27/25 18:06 Chloride IVPB 100 mls/hr Q24H JACQUI Administration Metronidazole 500 mg in 100 mls @ 100 mls/hr 10/26/25 23:05 10/28/25 05:02 Flagyl 500 Mg/Iso Soln 100 Ml IVPB 100 mls/hr Q8HR JACQUI Administration Sodium Chloride 1,000 mls @ 75 mls/hr 10/26/25 23:05 10/28/25 05:02 Normal Saline Iv IV CONT 75 mls/hr .[id number] JACQUI Administration Isosorbide Mononitrate 30 mg 10/28/25 09:00 10/28/25 09:03 Isosorbide Mononitrate 30 Mg Tab.Er.24h PO 30 mg DAILY JACQUI Administration Losartan Potassium 25 mg 10/28/25 09:00 10/28/25 09:03 Losartan Potassium 25 Mg Tablet PO 25 mg DAILY JACQUI Administration Metoprolol Tartrate 50 mg 10/27/25 21:00 10/28/25 09:03 Metoprolol Tartrate 50 Mg Tab PO 50 mg Q12HR JACQUI Administration Polyethylene Glycol 17 gm 10/27/25 15:00 10/28/25 09:03 Polyethylene Glycol 3350 17 Gm Powd.Pack PO 17 gm QAM JACQUI Administration Sodium Hypochlorite 1 applic 10/27/25 21:00 10/27/25 21:38 Sod Hypochlorite 1/4 Strength 473 Ml TOPICAL 1 applic Q12HR JACQUI Administration Vancomycin HCl 1 each 10/26/25 16:25 Vancomycin For Acute Kidney Injury IVPB PRN PRN Vancomycin Protocol Radiology Results: ITS Impressions Abdomen/Pelvis CT 10/26/25 16:11 IMPRESSION: 1. Large decubitus wound extending from the sacrococcygeal junction caudally to the gluteal crease. The depth of the defect is approximately 1.7 cm, although there is soft tissue attenuation extending to the posterior coccygeal margin. No definite osteomyelitis however. Correlate with follow-up imaging; if osteomyelitis is a clinical concern, MRI is recommended. 2. Moderate to large amount of stool in the rectal vault with thickened appearance of the rectal wall which could represent developing stercoral colitis. Abdomen Ultrasound 10/27/25 08:30 Impression: 1. Mild hepatic steatosis Labs Labs: Laboratory Results - last 24 hr 10/27/25 10/27/25 10/28/25 12:35 17:10 06:36 WBC 9.3 RBC 2.77 L Hgb 7.8 L Hct 24.9 L MCV 89.9 MCH 28.2 MCHC 31.3 L RDW 15.8 H Plt Count 242 MPV 9.9 Sodium Potassium Chloride Carbon Dioxide Anion Gap BUN Creatinine Estim Creat Clear Calc Estimated GFR Glucose Calcium Urine Calcium 1.3 Random Vancomycin 8.1 L 10/28/25 06:39 WBC RBC Hgb Hct MCV MCH MCHC RDW Plt Count MPV Sodium 140 Potassium 3.4 Chloride 116 H Carbon Dioxide 20 L Anion Gap 4 BUN 33 H Creatinine 1.75 H Estim Creat Clear Calc 24 Estimated GFR 28 L Glucose 90 Calcium 7.6 L Urine Calcium Random Vancomycin Quality VTE Prophylaxis VTE prophylaxis: mechanical ordered
[2025-10-28] MEDS: SOD HYPOCHLORITE 1/4 STRENGTH 473 ML 1 APPLIC TOPICAL (15:10)
[2025-10-28] MEDS: CEFEPIME 1 GM in SODIUM CHLORIDE 0.9% IV 50 ML 100 ML IVPB (17:04)
[2025-10-28 18:08] LABS: Calcium, Ionized 4.9 mg/dL (4.5-5.6)
[2025-10-28 20:23] VITALS: BP 159/54; PULSE 64; RESP 17; TEMP 36.2; O2SAT 100
[2025-10-28] MEDS: VANCOMYCIN HCL 1,000 MG in SODIUM CHLORIDE 0.9% IV 250 ML 250 MG IVPB (21:35)
[2025-10-29] MEDS: metroNIDAZOLE 500 MG/ISO 100ML 500 MG/100 ML BAG 100 MG IVPB (05:47)
[2025-10-29] MEDS: SOD HYPOCHLORITE 1/4 STRENGTH 473 ML 1 APPLIC TOPICAL (05:54)
[2025-10-29 06:00] VITALS: BP 182/59; PULSE 57; RESP 16; TEMP 37.2; O2SAT 98
[2025-10-29 06:31] LABS: Hematocrit 24.0 % (37.0-47.0); Hemoglobin 7.4 g/dL (12.0-15.0); Mean Corpuscular HGB Conc 30.8 g/dl (32-36); Mean Corpuscular Hemoglobin 27.9 pg (26-34); Mean Corpuscular Volume 90.6 fl (80-100); Platelet Count Result 215 k/mm3 (150-375); Red Blood Count 2.65 M/mm3 (4.2-5.4); White Blood Count 8.6 K/mm3 (4.5-10.0)
[2025-10-29 06:55] LABS: Anion Gap 4 mmol/L (4-12); Blood Urea Nitrogen 40 mg/dL (7-17); Calcium 7.9 mg/dL (8.4-10.2); Carbon Dioxide 22 mmol/L (22-30); Chloride 113 mmol/L (98-107); Estimated CRCL calculation 24 ml/min; Estimated Glomerular Filt Rate 28; Glucose 81 mg/dL (65-110); Potassium 3.7 mmol/L (3.4-5.0); Sodium 139 mmol/L (137-145)
--- NOTE | 2025-10-29 09:52 | PCNFU ---
Nutrition Follow-Up Complete: Increased protein energy needs related to altered skin integrity as evidenced by stage 4 pressure injury Intakes >75% - Slow progress with goal. Continue same goal Goal: Pt current nutrition is Diabetic consistent carb diet with Glucerna BID (220 kcal, 10 g pro) and Tom BID for wound support (90 kcal, 2.5 g protein, arginine +glutamine). Nutrition recommendation: No new recommendations. Continue current nutrition care plan and orders. Agree with orders Last recorded weight is 79.2 kg. Bowel Motility: +3 BMs 10/28. Bowel regimen on board Labs Reviewed: Hgb 7.4, Hct 24, BUN 40, Cre 1.79 Meds Noted: Vit C, Vit B12, miralax Skin: Stage 4 to sacrum, surgical debridement 10/27 Additional Notes: Intakes around 50% which is close to normal for patient according to . Supplements are on board. Encourage intake. Continue current nutrition orders. Monitoring intakes, weights, labs, skin, supplement tolerance, plan of care Follow up in 3 days
[2025-10-29 10:56] VITALS: PULSE 62
[2025-10-29] MEDS: ASPIRIN 81 MG CHEWABLE TABLET PO (10:56)
[2025-10-29] MEDS: METOPROLOL TARTRATE 50 MG TAB PO (10:56)
[2025-10-29] MEDS: ISOSORBIDE MONONITRATE 30 MG TAB.ER.24H PO (10:57)
[2025-10-29] MEDS: LOSARTAN POTASSIUM 25 MG TABLET PO (10:57)
[2025-10-29] MEDS: CALCIUM/VITAMIN D 500 MG/5 MCG (200 I.U.) TABLET PO (10:57)
[2025-10-29] MEDS: CYANOCOBALAMIN 1,000 MCG TABLET 2000 MCG PO (10:57)
[2025-10-29] MEDS: ATORVASTATIN 40 MG TABLET 80 MG PO (10:58)
[2025-10-29] MEDS: ASCORBIC ACID 500 MG TABLET PO (10:58)
[2025-10-29] MEDS: CITALOPRAM HYDROBROMIDE 20 MG TABLET PO (10:58)
[2025-10-29] MEDS: FERROUS SULFATE 325 MG TABLET BY MOUTH (10:58)
[2025-10-29] MEDS: DOXYCYCLINE HYCLATE 100 MG TABLET PO (11:09)
--- NOTE | 2025-10-29 11:37 | P.DS_ITS ---
DS: Admitting Diagnosis Discharge Date 12 Admitting Diagnosis sacral ulcer DS: Discharge Diagnosis Discharge Diagnosis (1) Unstageable pressure ulcer of sacral region: Code(s): L89.150 - Pressure ulcer of sacral region, unstageable Status: Acute (2) UTI (urinary tract infection): Code(s): N39.0 - Urinary tract infection, site not specified Status: Acute (3) Mixed hyperlipidemia: Code(s): E78.2 - Mixed hyperlipidemia Status: Acute (4) Hypertension: Qualifiers: Hypertension type: primary hypertension Qualified Code(s): I10 - Essential (primary) hypertension Code(s): I10 - Essential (primary) hypertension Status: Chronic (5) Anxiety: Code(s): F41.9 - Anxiety disorder, unspecified Status: Acute (6) Transaminitis: Code(s): R74.01 - Elevation of levels of liver transaminase levels Status: Acute (7) Anemia in chronic kidney disease (CKD): Code(s): N18.9 - Chronic kidney disease, unspecified; D63.1 - Anemia in chronic kidney disease Status: Acute (8) Hypocalcemia: Code(s): E83.51 - Hypocalcemia Status: Acute DS: Summary Hospital Course Hospital Course: This is a 75-year-old female with history of chronic sacral pressure ulcer who [facility] with worsening sacral wound drainage and foul odor. Patient is a poor historian; information obtained from facility records and old medical records. * Vital Signs: T-max 99.7?F, HR 69 bpm, BP 154/63 mmHg, SpO2 97% on room air * General: Poor historian, alert * Wound: Large sacral decubitus ulcer with necrotic tissue and foul-smelling drainage Admission Labs (10/26/2025): * WBC: 13.4 (elevated) * Hemoglobin/Hematocrit: 8.1/25.3 (baseline) * Sodium: 135 (low normal) * BUN: 34, Creatinine: 2.02, GFR: 24 (improved from baseline) * Glucose: 174 * Calcium: 7.9 (low) * Mildly elevated liver enzymes Urinalysis: * Protein 3+, Blood 1+, Leukocyte esterase 2+, Bacteria 4+, WBC >100 CT Abdomen/Pelvis: * Large decubitus wound extending from sacrococcygeal junction to gluteal crease, depth approximately 1.7 cm with soft tissue attenuation extending to posterior coccygeal margin. No definite osteomyelitis identified on CT. * Moderate to large amount of stool in rectal vault with thickened rectal wall concerning for developing stercoral colitis. Microbiology: * Urine culture: Vancomycin-resistant Enterococcus (VRE) * Wound culture: Methicillin-resistant Staphylococcus aureus (MRSA) The patient was admitted to inpatient status on 10/26/2025 for management of infected sacral pressure ulcer. She was started on broad-spectrum IV antibiotics including vancomycin, cefepime, and metronidazole (Flagyl). IV fluid resuscitation was initiated with 6-liter bolus; patient was monitored for fluid overload given history of congestive heart failure. General Surgery was consulted on admission. On 10/27/2025, patient underwent bedside excisional debridement of necrotic sacral decubitus ulcer after informed consent obtained from patient and . During debridement, a tiny area of bone exposure was noted in the base of the wound, raising concern for possible osteomyelitis despite CT findings showing no definitive evidence. Post-procedurally, patient tolerated the procedure well. By 10/28/2025, WBC normalized and patient had no new complaints. Infectious Disease was consulted for antibiotic recommendations given concern for osteomyelitis, which would require prolonged antibiotic therapy (up to 6 weeks), and positive cultures for MRSA and VRE. Daily wound care was initiated with Dakin's solution-soaked gauze twice daily. Physical therapy and occupational therapy were consulted. The patient was maintained on appropriate turning and repositioning schedule. Care coordination following for placement. Surgery cleared her for discharge. Discussed with pharm ID and pt was discharged on augmentin 500/125 q12h total 84 doses, doxy 100 mg q12h total 84 doeses- last day for both antibiotics- 12/09/25 pm dose Status at Discharge Functional status at discharge: uses cane/walker Overall status at discharge: patient is progressing back to baseline Time Spent with Patient Time attestation: Total time spent providing and/or coordinating discharge services: Time spent: Greater than 30 minutes Exam Const: General: cooperative, comfortable, no acute distress, well developed, awake and Physically active HENMT: Head: normal to inspection, No palpable skull fracture present and normocephalic Ears: hearing grossly normal bilaterally Eyes: General: appearance normal, both eyes and all related structures Neck: Neck: normal visual inspection, full ROM and no lymphadenopathy Chest: Chest palpation & inspection: normal inspection of the chest Resp: Effort & Inspection: normal respiratory effort Auscultation: clear to auscultation bilaterally Cardio: Palpation: normal PMI Rate: regular rate Rhythm: regular rhythm Heart sounds: S1 normal heart sound present and S2 normal heart sound present Peripheral pulses: Peripheral pulses 2+ throughout GI: Inspection: normal to inspection Auscultation: normal bowel sounds Rectal Exam: deferred : General: Yes no CVA tenderness Back/Spine/Pelvis: Back: no CVA tenderness Skin: General skin exam: normal color Lesions: no lesions Rashes: no rashes Trauma: no lacerations or abrasions Other: prominent defect along the posterior margin of the lower pelvis consistent with open wound measures 7.0 x 4.1 x 1.7 cm in the cephalocaudal by transverse by AP dimensions as per CT. The patient has an unstageable pressure sacral ulcer. She has necrotic tissue with Moist diamond brown slough throughout the wound. No obvious bone exposure. Neuro: General: oriented to person and oriented to place Cranial nerves: Yes Normal hearing present Cognition (Neuro): normal cognition Speech: normal speech Motor exam (neuro): 5/5 motor strength present throughout Sensory Exam: normal sensation Other: Patient is slow to speak. Patient's right pupil is dilated and her left pupil was constricted. Unsure if this is related to her previous cataract surgery. Extrem: General: normal to inspection Right upper extremity: normal to inspection Left upper extremity: normal to inspection Other: Chronic venous stasis to lower extremities with discoloration to lower extremities. Psych: Appearance: grossly normal Mental Status: mental status grossly normal Speech and movement: Normal speech and movement present Affect: normal affect Attitude: cooperative Thought process: Normal thought process present DS: Data Data Completed and Pending Labs on day of discharge: Labs from last 24 hours 10/29/25 10/28/25 10/27/25 06:18 19:17 06:14 WBC 8.6 RBC 2.65 L Hgb 7.4 L Hct 24.0 L MCV 90.6 MCH 27.9 MCHC 30.8 L RDW 15.8 H Plt Count 215 MPV 9.7 Sodium 139 Potassium 3.7 Chloride 113 H Carbon Dioxide 22 Anion Gap 4 BUN 40 H Creatinine 1.79 H Estim Creat Clear Calc 24 Estimated GFR 28 L Glucose 81 Calcium 7.9 L Ionized Calcium 4.9 Random Vancomycin 13.5 Preliminary micro results at discharge 10/26/25 14:44 Blood Culture - Preliminary Blood 10/26/25 15:23 Blood Culture - Preliminary Blood Discharge Plan Discharge Attending physician on discharge: Ricki Whaley Consulting providers: Eleuterio Gonzales; Amelia Guevara Discharging Clinician: Emilie Strickland Patient Disposition: SNF Activity: march shower Diet: heart healthy Discharge Instructions: You were admitted to the hospital because of an infected wound on your lower back (sacrum). During your stay, you had surgery to clean out the infected tissue from the wound, and you received IV antibiotics to treat the infection. You will need to continue antibiotics for up to 6 weeks- last day 12/09/25 for both antibiotcs. It is very important that you are turned and repositioned every 2 hours to prevent pressure on the wound and help it heal. Your wound dressings need to be changed twice daily with special solution-soaked gauze. You should follow up with your doctors as scheduled. Please return to the emergency room or call your doctor right away if you develop a fever over 101?F, notice increased drainage or bad smell from the wound, have increased pain, trouble breathing, decreased urination, or any other concerning symptoms. Continue t aking all your medications as directed, eat a healthy diet with enough protein to help healing, and work with physical and occupational therapy. Your healthcare team at the facility will monitor your wound closely and check your blood work regularly to make sure the infection is improving. Patient Language: Emirati Stand Alone Forms: General Discharge Information Discharge Medications: New amoxicillin-pot clavulanate [Augmentin] 500-125 mg Tablet 1 tablet PO Q12HR Qty: 83 0RF Rx Instructions: last dose 12/09/25 pm dose doxycycline hyclate 100 mg Tablet 100 mg PO Q12HR Qty: 83 0RF Continued minoxidil 2.5 mg tablet 5 mg PO DAILY Rx Instructions: 5 mg orally; bumetanide 1 mg tablet 1 mg PO DAILY 30 Days Qty: 17 0RF Rx Instructions: 1mg daily for 1 week then 0.5mg daily Multivitamin 50 Plus Tablet 1 tablet PO DAILY zinc gluconate 50 mg tablet 50 mg PO DAILY Rx Instructions: administer on empty stomach, at least 1 hour before or after meal(s) cholecalciferol (vitamin D3) 25 mcg (1,000 unit) capsule 1,000 unit PO DAILY ascorbic acid (vitamin C) 500 mg capsule 500 mg PO DAILY mirtazapine 15 mg tablet 15 mg PO HS aspirin 81 mg Tablet 81 mg PO DAILY Patient Comments: . Calcium 600 + D(3) 600 mg capsule 600 mg PO DAILY Patient Comments: reports not taking now. citalopram 20 mg tablet 20 mg PO DAILY Qty: 90 2RF metoprolol tartrate 50 mg tablet 50 mg PO BID Qty: 180 3RF Procrit 20,000 unit/mL solution 20,000 unit subcut WEEKLY Rx Instructions: administer every Saturday mecobalamin (vitamin B12) 2,500 mcg tablet,chewable 2,000 mcg PO DAILY isosorbide mononitrate 30 mg tablet extended release 24 hr 30 mg PO DAILY Qty: 90 3RF ferrous sulfate 325 mg (65 mg iron) tablet 325 mg PO BID Qty: 180 1RF losartan 25 mg tablet 25 mg PO DAILY Qty: 30 8RF atorvastatin [Lipitor] 80 mg tablet 80 mg PO DAILY Qty: 90 2RF Date of admission: 10/26/25 16:54 Primary Care Provider: Sabino Moore Admitting Provider: Lemuel Pineda Attending physician on admission: Lemuel Pineda Condition: Stable Quality VTE Prophylaxis VTE prophylaxis: mechanical ordered Hospitalist MIPS Heart Failure (Exclusion) Patient has history of Heart Transplant or Left Ventricular Assistive Device?: No IF YES, STOP HERE Heart Failure (Qualifier) Patient has current or prior documentation of LVEF less than or equal to 40%, or mod/servere depressed LVSF?: No IF NO, STOP HERE
--- NOTE | 2025-10-29 12:06 | P.PNGS_ITS ---
Progress Note: A&P Assessment and Plan (1) Unstageable pressure ulcer of sacral region: Code(s): L89.150 - Pressure ulcer of sacral region, unstageable Status: Acute Assessment and Plan: * Wound continues to heal on postop day 2 status post bedside debridement. WBC remains normal. Patient has no new complaints. * Continue frequent turning/repositioning * Continue daily wound care with Dakin soaked gauze gauze twice daily. * Continue PT/OT. * Surgically stable for discharge to a care facility. no follow-up necessary, as [facility] should address wound care needs. (2) Osteomyelitis: Code(s): M86.9 - Osteomyelitis, unspecified Status: Acute Assessment and Plan: * Although CT scan does not show definitive evidence of osteomyelitis, there is a tiny area of bone exposed in the base of the wound that raises concern for osteomyelitis. Treatment for this would require longer-term antibiotics, up to 6 weeks. Could consider ID consultation for recommendations. Plan Discussed patient's case and plan of care with Dr. Gonzales. Subjective Subjective Date/Time Seen: 10/29/25 12:06 Patient reports: no new complaints, feels better, tolerating a regular diet, bowel movement and afebrile Interval history: The patient doing well today. No new complaints. Stable overnight. WBC remains normal. Exam Const: General: comfortable and no acute distress Eyes: General: appearance normal, both eyes and all related structures Neck: Neck: supple Resp: Effort & Inspection: normal respiratory effort Skin: Other: Sacral wound appears stable with mostly pink healthy granulation tissue. Roughly 70% healthy and 30% grayish yellow slough. No purulence or areas of fluctuance appreciated. minimal surrounding redness. Objective Data Vital Signs Vital Signs: Vital Signs - 24 hr 10/28/25 13:52 10/28/25 20:00 10/28/25 20:23 Temperature 98.4 F 97.1 F L Pulse Rate 66 64 Respiratory Rate 18 17 Blood Pressure 129/70 159/54 H Pulse Oximetry 100 100 Oxygen Delivery Room Air 10/29/25 06:00 10/29/25 08:00 10/29/25 10:56 Temperature 99 F Pulse Rate 57 L 62 Respiratory Rate 16 Blood Pressure 182/59 H Pulse Oximetry 98 Oxygen Delivery Room Air Intake/Output Intake/Output: Intake & Output 10/26/25 10/27/25 10/28/25 12/19/25 23:59 23:59 23:59 23:59 Intake Total 2600 1350 3248 640 Output Total 200 1150 Balance 2600 1150 2098 640 Meds/Results Medications: Active Medications Generic Name Dose Route Start Last Admin Trade Name Freq PRN Reason Stop Dose Admin Amoxicillin/Clavulanate Potassium 1 tablet 10/29/25 10:15 10/29/25 11:09 Amoxicillin/Clavulanate K 500-125 Mg Tab PO 12/09/25 21:01 1 tablet Q12HR JACQUI Administration Ascorbic Acid 500 mg 10/28/25 09:00 10/29/25 10:58 Ascorbic Acid 500 Mg Tablet PO 500 mg DAILY JACQUI Administration Aspirin 81 mg 10/28/25 08:00 10/29/25 10:56 Aspirin 81 Mg Chewable Tablet PO 81 mg DAILY@0800 JACQUI Administration Atorvastatin Calcium 80 mg 10/28/25 09:00 10/29/25 10:58 Atorvastatin 40 Mg Tablet PO 80 mg DAILY JACQUI Administration Calcium Carbonate 500 mg 10/28/25 09:00 10/29/25 10:57 Calcium/Vitamin D 500 Mg/5 Mcg (200 I.U.) Tablet PO 500 mg QAM JACQUI Administration Citalopram Hydrobromide 20 mg 10/28/25 09:00 10/29/25 10:58 Citalopram Hydrobromide 20 Mg Tablet PO 20 mg DAILY JACQUI Administration Cyanocobalamin 2,000 mcg 10/28/25 09:00 10/29/25 10:57 Cyanocobalamin 1,000 Mcg Tablet PO 2,000 mcg QAM JACQUI Administration Doxycycline Hyclate 100 mg 10/29/25 10:15 10/29/25 11:09 Doxycycline Hyclate 100 Mg Tablet PO 12/09/25 21:01 100 mg Q12HR JACQUI Administration Ferrous Sulfate 325 mg 10/27/25 17:00 10/29/25 10:58 Ferrous Sulfate 325 Mg Tablet BY MOUTH 325 mg BID JACQUI Administration Hydralazine HCl 10 mg 10/26/25 23:13 10/29/25 05:47 Hydralazine Hcl 20 Mg/Ml Vial IV PUSH 10 mg Q8H PRN Administration Blood Pressure - High Sodium Chloride 1,000 mls @ 75 mls/hr 10/26/25 23:05 10/28/25 21:42 Normal Saline Iv IV CONT Not Given .[id number] JACQUI Isosorbide Mononitrate 30 mg 10/28/25 09:00 10/29/25 10:57 Isosorbide Mononitrate 30 Mg Tab.Er.24h PO 30 mg DAILY JACQUI Administration Losartan Potassium 25 mg 10/28/25 09:00 10/29/25 10:57 Losartan Potassium 25 Mg Tablet PO 25 mg DAILY JACQUI Administration Metoprolol Tartrate 50 mg 10/27/25 21:00 10/29/25 10:56 Metoprolol Tartrate 50 Mg Tab PO 50 mg Q12HR JACQUI Administration Polyethylene Glycol 17 gm 10/27/25 15:00 10/29/25 10:56 Polyethylene Glycol 3350 17 Gm Powd.Pack PO 17 gm QAM JACQUI Administration Sodium Hypochlorite 1 applic 10/27/25 21:00 10/29/25 05:54 Sod Hypochlorite 1/4 Strength 473 Ml TOPICAL 1 applic Q12HR JACQUI Administration Radiology Results: ITS Impressions Abdomen/Pelvis CT 10/26/25 16:11 IMPRESSION: 1. Large decubitus wound extending from the sacrococcygeal junction caudally to the gluteal crease. The depth of the defect is approximately 1.7 cm, although there is soft tissue attenuation extending to the posterior coccygeal margin. No definite osteomyelitis however. Correlate with follow-up imaging; if osteomyelitis is a clinical concern, MRI is recommended. 2. Moderate to large amount of stool in the rectal vault with thickened appearance of the rectal wall which could represent developing stercoral colitis. Abdomen Ultrasound 10/27/25 08:30 Impression: 1. Mild hepatic steatosis Labs Labs: Laboratory Results - last 24 hr 10/27/25 10/28/25 10/29/25 06:14 19:17 06:18 WBC 8.6 RBC 2.65 L Hgb 7.4 L Hct 24.0 L MCV 90.6 MCH 27.9 MCHC 30.8 L RDW 15.8 H Plt Count 215 MPV 9.7 Sodium 139 Potassium 3.7 Chloride 113 H Carbon Dioxide 22 Anion Gap 4 BUN 40 H Creatinine 1.79 H Estim Creat Clear Calc 24 Estimated GFR 28 L Glucose 81 Calcium 7.9 L Ionized Calcium 4.9 Random Vancomycin 13.5
[2025-10-29 13:37] VITALS: BP 138/64; PULSE 63; RESP 18; TEMP 36.4; O2SAT 100
--- NOTE | 2025-10-29 13:53 | WNDPHOTO ---
PHOTO ONLY - See Nursing Notes and/ or assessments for documentation.
--- NOTE | 2025-10-29 15:02 | WPDIDCN ---
Assessment and Plan Assessment and plan (1) Osteomyelitis: Code(s): M86.9 - Osteomyelitis, unspecified Status: Acute Plan #Sacral decubitus ulcer. Pressure related. Chronic sacral wound. With local debridement. Debridement did track to bone based on surgery. Superficial cultures with Proteus plus MRSA. Available CT images not consistent with any bone penetration/osteomyelitis. Concern for early osteo based on palpation bone. However no deep penetration or bone findings on imaging Options would be oral antibiotic therapy for 4 to 6 weeks based on available bioavailability and susceptibilities of the available organisms. If there is initial slow improvement, can transition to IV antibiotics at skilled facility. Would like to follow-up with the patient in 1 to 2 weeks via telephone follow-up to ensure she is continuing to improve. Any additional post operative wound care per surgery. Patient has plans for discharge today. I do not believe she needs to remain in the hospital for any further evaluation for IVs at this point and we can continue the Augmentin and doxycycline as was planned by primary care service however with close follow-up in the [facility] setting. In general, patient will likely do well based on the intraoperative and imaging findings with oral antibiotics. HPI Data of Consult Date/Time: 10/29/25 15:02 Requesting Physician: Lemuel Pineda MD Primary Care Provider: Sabino Moore MD Consult Narrative Reason for consult: back infection. possible OM Narrative: Amelie Menjivar is a 75 year old female 75-year-old woman with a past medical history of DM and chronic sacral wound presenting with immobility. Has had a chronic wound on her back. Status post debridement. Groin Proteus plus MRSA. Did track to bone although no CT findings of osteomyelitis. Planning Dakin's solution. Going to rehab for more mobility. provides some history. No fevers or chills. Not taking any antibiotics prior to presentation here. Plan was Augmentin plus doxycycline based on cultures. ID asked for further recommendations. No fevers chills or night sweats. Remaining ID workup unremarkable. Followed closely by surgery for wound care recommendations. [facility] Past Medical History Medical History (Updated 10/27/25 @ 13:01 by Vee Hunter APRN) Anemia Anemia, chronic disease Anemia, chronic disease Anemia Type 2 diabetes mellitus with diabetic nephropathy Long-term current use of insulin for diabetes mellitus Acute kidney injury superimposed on CKD Decubitus ulcer of sacral area Hypertension Chronic venous stasis History of diabetes mellitus CVA (cerebral vascular accident) SDH (subdural hematoma) Aortic stenosis s/p TAVR Chronic kidney disease, stage 4 (severe) Hypertensive chronic kidney disease with stage 1 through stage 4 chronic kidney disease, or unspecified chronic kidney disease Mixed hyperlipidemia Surgical History Surgical History (Updated 10/26/25 @ 22:42 by Aliza Calvert APRN) History of tonsillectomy History of cataract extraction OD 10/2024, OS 11/2024 S/P TAVR (transcatheter aortic valve replacement) Ganglion cyst s/p excision from left wrist Family History Family History Father Family history of coronary artery disease Diabetes mellitus Social History Social History (Updated 10/26/25 @ 22:43 by Aliza Calvert APRN) Social History: She is and lives with her at [facility] . She has no children. 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 She denies any alcohol or illicit drugs. Her is a [employer] perinatal tech for healthcare. Code status full code Smoking packs per day: 2 Smoking cigarettes per day: 40.0 Years smoked: 25 Smoking pack-years: 50.00 Smoking status: Former smoker Tobacco type: cigarettes Second hand tobacco smoke exposure: Yes Smoking end date: 11/11/94 Alcohol intake: never Substance use: never Substance use type: does not use Lack of Transportation: YES Lack of Food: Never True Current Housing: I Have Housing Concerned About Future Housing: No Difficulty Paying Gas/Electric Bills: No Difficulty Paying for Meds: No Currently Unemployed: No Education: High School Diploma/GED Difficulty w/ Childcare or Family Care: No Living arrangements: alone Occupation/Education: retired Gender identity (if verbalized by the patient): Female Spiritual care concerns: No Meds Home Medications and Allergies Home Medications ?Medication ?Instructions ?Recorded ?Confirmed ?Type Calcium 600 + D(3) 600 mg PO DAILY 10/13/21 10/27/25 History aspirin 81 mg tablet 81 mg PO DAILY 10/13/21 10/27/25 History citalopram 20 mg tablet 20 mg PO DAILY #90 tabs 01/20/25 10/27/25 Rx metoprolol tartrate 50 mg tablet 50 mg PO BID #180 tabs 01/21/25 10/27/25 Rx epoetin colin 20,000 unit/mL 20,000 unit subcut WEEKLY Anemia 03/25/25 10/27/25 History injection solution (Procrit) mecobalamin (vitamin B12) 2,500 2,000 mcg PO DAILY supplement 03/25/25 10/27/25 History mcg chewable tablet isosorbide mononitrate 30 mg 30 mg PO DAILY #90 tabs 04/22/25 10/27/25 Rx tablet,extended release 24 hr minoxidil 2.5 mg tablet 5 mg PO DAILY 06/08/25 10/27/25 History ferrous sulfate 325 mg (65 mg 325 mg PO BID #180 tabs 06/16/25 10/27/25 Rx iron) tablet losartan 25 mg tablet 25 mg PO DAILY #30 tabs 06/28/25 10/27/25 Rx atorvastatin 80 mg tablet (Lipitor) 80 mg PO DAILY #90 tabs 07/19/25 10/27/25 Rx bumetanide 1 mg tablet 1 mg PO DAILY 30 days #17 tabs 09/27/25 10/27/25 Rx ascorbic acid (vitamin C) 500 mg 500 mg PO DAILY 10/27/25 10/27/25 History capsule cholecalciferol (vitamin D3) 25 1,000 unit PO DAILY Vitamin D 10/27/25 10/27/25 History mcg (1,000 unit) capsule deficiency mirtazapine 15 mg tablet 15 mg PO HS 10/27/25 10/27/25 History yyrccvrqvkmq-dukawrbe-lqrrnr 1 tablet PO DAILY 10/27/25 10/27/25 History tablet (Multivitamin 50 Plus tablet) zinc gluconate 50 mg tablet 50 mg PO DAILY poor oral 10/27/25 10/27/25 History intake/wound healing amoxicillin 500 mg-potassium 1 tablet PO Q12HR #83 tabs 10/29/25 Rx clavulanate 125 mg tablet (Augmentin) doxycycline hyclate 100 mg tablet 100 mg PO Q12HR #83 tabs 10/29/25 Rx Allergies Allergy/AdvReac Type Severity Reaction Status Date / Time lisinopril Allergy Unknown Unknown Verified 10/27/25 06:55 Vital Signs Vital Signs - 24 hr 10/28/25 20:00 10/28/25 20:23 10/29/25 06:00 Temperature 36.2 C L 37.2 C Pulse Rate 64 57 L Respiratory Rate 17 16 Blood Pressure 159/54 H 182/59 H Pulse Oximetry 100 98 Oxygen Delivery Room Air 10/29/25 08:00 10/29/25 10:56 10/29/25 13:37 Temperature 36.4 C L Pulse Rate 62 63 Respiratory Rate 18 Blood Pressure 138/64 Pulse Oximetry 100 Oxygen Delivery Room Air Exam Const: Other: Alert and oriented to person place and time. at bedside. Examined via telemedicine. Did not take down the sacral wound. Reviewed available media. Nonlabored breathing. No rash Results Labs 10/29/25 06:18 10/29/25 06:18 Labs: Short CBC 10/29/25 Range/Units 06:18 WBC 8.6 (4.5-10.0) K/mm3 Hgb 7.4 L (12.0-15.0) g/dL Hct 24.0 L (37.0-47.0) % Plt Count 215 (150-375) k/mm3 [facility] 10/29/25 06:18 Sodium 139 Potassium 3.7 Chloride 113 H Carbon Dioxide 22 BUN 40 H Creatinine 1.79 H Glucose 81 Calcium 7.9 L
== END 2025-10-29 16:17 | DRG 580 ==
LOC: ANHED 15:18 → ANH3MEDSUR 17:55
PROVIDERS: Nurse Practitioner; Admitting Provider Internal Medicine; Emergency Provider Student in an Organized Health Care Education/Training Program; PCP Family Medicine; Visit Provider Nurse Practitioner
DX: L89.154 Pressure ulcer of sacral region, stage 4 (principal); I13.0 Hypertensive heart and chronic kidney disease with heart failure and stage 1 through stage 4 chronic kidney disease, or unspecified chronic kidney disease; N39.0 Urinary tract infection, site not specified; Z16.21 Resistance to vancomycin; M86.9 Osteomyelitis, unspecified; E11.22 Type 2 diabetes mellitus with diabetic chronic kidney disease; N18.9 Chronic kidney disease, unspecified; I50.9 Heart failure, unspecified; E11.65 Type 2 diabetes mellitus with hyperglycemia; B95.2 Enterococcus as the cause of diseases classified elsewhere; B95.62 Methicillin resistant Staphylococcus aureus infection as the cause of diseases classified elsewhere; B96.4 Proteus (mirabilis) (morganii) as the cause of diseases classified elsewhere; K59.00 Constipation, unspecified; E78.2 Mixed hyperlipidemia; E83.51 Hypocalcemia; F41.9 Anxiety disorder, unspecified; R74.01 Elevation of levels of liver transaminase levels; I35.0 Nonrheumatic aortic (valve) stenosis; D63.1 Anemia in chronic kidney disease; Z86.73 Personal history of transient ischemic attack (TIA), and cerebral infarction without residual deficits; Z95.2 Presence of prosthetic heart valve; Z87.891 Personal history of nicotine dependence; Z79.4 Long term (current) use of insulin
CPT/HCPCS: 36415; 74177; 76705; 80048; 80053; 80074; 80202; 81001; 82306; 82310; 82330; 82340; 82397; 82565; 82948; 83605; 83735; 84443; 85025; 85027; 85610; 85730; 86140; 87040; 87070; 87075; 87086; 87186; 96360; 97110; 97162; 97166; 97530; 99285; A9270; J0360; J0692; J1836; J3373; J7030; J7040; J7050; Q9967

== ENCOUNTER 2025-11-09 12:31 | Emergency (ER) | payer OTHER, MEDICARE, SELFPAY ==
[2025-11-09 12:42] VITALS: BP 127/65; PULSE 70; TEMP 36.6; O2SAT 100
--- OUTSIDE RECORDS SUMMARY | 2025-11-09 12:46 | XMS_ITS | Encounter Summary ---
Author Organization [facility] Address [address] [place] [address] Care Team Providers Care Vegetable Grower Name Role Phone Sabino Moore MD Primary Care Provider [phone] Encounter Details Date Type Department Care Team ([facility] Contact Info) Description 11/08/2025 Orders Only [facility] [address] [place] [address] Luisito Dejesus MD [address] [place] [phone] Anemia, chronic disease Social History Tobacco [...] (Late Contact Info) Description 11/30/2025 11:15 AM EGG BREAKER Office Visit [facility] - [place] [address] [place] [address] Luisito Dejesus MD [address] [place] [phone] documented as of this encounter Visit Diagnoses Diagnosis Anemia, chronic disease Anemia of other chronic disease documented in this encounter Care Teams Vegetable Grower Relationship Specialty Start Date End Date Sabino Moore MD [address] [facility] [address] [place] [address] PCP - General Family Practice 08/31/22 documented as of this encounter
--- OUTSIDE RECORDS SUMMARY | 2025-11-09 12:46 | XMS_ITS | Clinical Summary ---
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 Never 09/01/2021 Do you belong to any clubs o r organizations such as uatsdin groups, unions, fraternal or athletic groups, or [...] place to sleep or slept in a nursing home (including now)? No 09/01/2021 Personal Safety Answer Date Recorded Getting School Help Needed Not on file 10/23 Comments No Sex and Gender Information Value Date Recorded Sex Assigned at Not on file Legal Sex Female 2:23 AM EPIC AMBULATORY ANALYST Gender Identity Not on file Sexual Orientation Not on file Last Filed Vital Signs Vital Sign Reading Time Taken Comments Blood Pressure 185/82 10/17/2023 11:53 AM EPIC AMBULATORY ANALYST Pulse 61 08/23/2023 10:05 AM CDT Temperature [...] 06/25/2032 06/25/2022 Medical Devices Implanted Type Area Microfilm Equipment Inspector Device Identifier Shelf Expiration Date Model / Serial / Lot [employer] [id number] Perclose 6fr Suture Mediate Knot Push Vascular Device Closure - [id number] Implanted:Qty: 1 on 08/31/2021 by Shaggy Burgess MD at [facility] [employer] 05/10/2023 [id number] / / [id number] [employer] [id number] Perclose 6fr Suture Mediate Knot Push Vascular Device Closure - [id number] Implanted:Qty: 1 on 08/31/2021 by Shaggy Burgess MD at [facility] [employer] 05/10/2023 [id number] / / [id number] [employer] [id number] Valve Heart 23mm Torey 3 Transcatheter - [id number] - [id number] Implanted:Qty: 1 on 08/31/2021 by Shaggy Burgess MD at [facility] [employer] 01/18/2023 [id number] / [id number] / [employer] [id number] Perclose 6fr Suture Mediate Knot Push Vascular Device Closure - [id number] Implanted:Qty: 1 on 08/31/2021 by Shaggy Burgess MD at [facility] [employer] 05/10/2023 [id number] / / [id number] Procedures Procedure Name Priority Date/Time Associated Diagnosis Comments POCT LIPID PANEL Routine 02/12/2023 11:4 8 AM CDT 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 Care Teams Phone Representative Relationship Specialty Start Date End Date Sabino Moore MD [address] [facility] [address] [place] [address] PCP - General 03/10/14
--- OUTSIDE RECORDS SUMMARY | 2025-11-09 12:46 | XMS_ITS | Clinical Summary ---
Author Organization [facility] Alex king Agustínhayder Address [address] [address] Care Team Providers Care Lawn Mower Sharpener Name Role Phone Sabino Moore MD Primary [...] Encounters Date Type Department Care Team Description 11/08/2025 Orders Only [facility] - [place] [address] Luisito Dejesus MD Anemia, chronic disease 11/02/2025 External Device Data STL ABSTRACTION Provider, Abstract 10/25/2025 Orders Only [facility] [place] [address] [place] [phone] Luisito Dejesus MD Anemia, chronic disease 10/11/2025 Orders Only [facility] [place] [address] [place] [phone] Luisito Dejesus MD Anemia, chronic disease 09/27/2025 Orders Only [facility] [place] [address] [place] [phone] Luisito Dejesus MD Anemia, chronic disease 09/13/2025 Orders Only [facility] [place] [address] [place] [phone] Luisito Dejesus MD Anemia, chronic disease 09/08/2025 Orders Only [facility] [place] [address] [place] [phone] Luisito Dejesus MD 08/30/2025 Orders Only [facility] [place] [address] [place] [address] Luisito Dejesus MD Anemia, chronic disease 08/16/2025 Orders Only [facility] [place] [address] [place] [address] Luisito Dejesus MD Anemia, chronic disease 08/12/2025 Orders Only [facility] [place] [address] [place] [phone] Luisito Dejesus MD from Last 3 Months Social History Tobacco [...] st Contact Info) Description 11/30/2025 11:15 AM LOOPER OPERATOR Office Visit [facility] Oncology and Hematology - [place] [address] [facility] [address] [place] [address] Luisito Dejesus MD [address] [facility] [address] [place] [address] Health Maintenance Due Date Last [...] WITH AUTODIFFERENTIAL Routine 2024 12:30 PM CDT from Last 3 Months Results * CBC WITH AUTODIFFERENTIAL (09/07/2025 10:39 AM CDT) Only the most recent of2 resultswithin the time period is included. Blood us Luisito Dejesus MD HEMATOLOGY ORDERABLES Final Res ult from Last 3 Months Insurance AETNA PPO MCR Care Teams Lawn Mower Sharpener Relationship Specialty Start Date End Date Sabino Moore MD [address] [facility] [address] [place] [address] PCP - General Family Practice 08/31/22
--- OUTSIDE RECORDS SUMMARY | 2025-11-09 12:46 | XMS_ITS | Clinical Summary ---
Author Organization [facility] em[facility] Address [address] [place] [address] Phone Care Team Providers Care Mechanical Reliability Engineer Name Role Phone Sabino Moore MD Primary Care Provider [phone] Allergies No known active allergies Medications atorvastatin [...] Comments Blood Pressure 142/70 12/30/2019 8:56 AM FUSE MAKER Pulse 72 12/30/2019 8:56 AM FUSE MAKER Temperature 36.6 C (97.9 F) 12/30/2019 8:56 AM FUSE MAKER Respiratory Rate - - Oxygen Saturation - - Inhaled Oxygen Concentration - - Weight 105 kg (231 lb) 12/30/2019 8:56 AM FUSE MAKER Height 152.4 cm (5') 12/30/2019 8:56 AM FUSE MAKER Body Mass Index 45.11 12/30/2019 8:56 AM FUSE MAKER Plan of Treatment Health Maintenance Due Date Last Done Comments Pneumococcal PPSV23/PCV13 65 + Years / Low and Medium Risk (2 of 4 - PCV) 11/19/2012 11/19/2011 Influenza Vaccine (#1) 2025 9, 08/13/2013, 08/25/2012 Insurance MEDICARE [employer] [place] MEDICARE SUPPLEMENT Care Teams Mechanical Reliability Engineer Relationship Specialty Start Date End Date Sabino Moore MD [address] [facility] 162 [facility] 120 [place] [address] PCP - General Internal Medicine 12/25/19
[2025-11-09 15:09] VITALS: BP 137/63; PULSE 104; RESP 18; TEMP 36.7; O2SAT 93
--- NOTE | 2025-11-09 17:27 | ED.GENADULT ---
HPI - General Adult General Chief complaint: Wound/Laceration Stated complaint: leg lac Time Seen by Provider: 11/09/25 15:47 History of Present Illness HPI narrative: [age] old female presents emergency department for evaluation for an 6 cm laceration to her left lateral calf. This happened during transfer from wheelchair to the bed. Related Data Home Medications ?Medication ?Instructions ?Recorded ?Confirmed ?Last Taken ?Type Calcium 600 + D(3) 600 mg PO DAILY 10/13/21 10/27/25 10/26/25 History aspirin 81 mg tablet 81 mg PO DAILY 10/13/21 10/27/25 10/26/25 History epoetin colin 20,000 unit/mL 20,000 unit subcut WEEKLY Anemia 03/25/25 10/27/25 08/25/25 History injection solution (Procrit) mecobalamin (vitamin B12) 2,500 2,000 mcg PO DAILY supplement 03/25/25 10/27/25 10/26/25 History mcg chewable tablet minoxidil 2.5 mg tablet 5 mg PO DAILY 06/08/25 10/27/25 10/26/25 History ascorbic acid (vitamin C) 500 mg 500 mg PO DAILY 10/27/25 10/27/25 10/26/25 History capsule cholecalciferol (vitamin D3) 25 1,000 unit PO DAILY Vitamin D 10/27/25 10/27/25 10/26/25 History mcg (1,000 unit) capsule deficiency mirtazapine 15 mg tablet 15 mg PO HS 10/27/25 10/27/25 10/25/25 History nunlscegeril-uuppmhyt-zlgyxc 1 tablet PO DAILY 10/27/25 10/27/25 10/26/25 History tablet (Multivitamin 50 Plus tablet) zinc gluconate 50 mg tablet 50 mg PO DAILY poor oral 10/27/25 10/27/25 10/26/25 History intake/wound healing Allergies Allergy/AdvReac Type Severity Reaction Status Date / Time lisinopril Allergy Unknown Unknown Verified 10/27/25 06:55 Review of Systems Review of Systems: All systems reviewed & are unremarkable except as noted in HPI and below PMFSH Past Medical History Medical History (Updated 11/10/25 @ 00:02 by Hailey Kearns) Anemia Anemia, chronic disease Anemia, chronic disease Anemia Type 2 diabetes mellitus with diabetic nephropathy Long-term current use of insulin for diabetes mellitus Acute kidney injury superimposed on CKD Decubitus ulcer of sacral area Hypertension Chronic venous stasis History of diabetes mellitus CVA (cerebral vascular accident) SDH (subdural hematoma) Aortic stenosis s/p TAVR Chronic kidney disease, stage 4 (severe) Hypertensive chronic kidney disease with stage 1 through stage 4 chronic kidney disease, or unspecified chronic kidney disease Mixed hyperlipidemia Surgical History Surgical History (Updated 10/26/25 @ 22:42 by Aliza Calvert APRN) History of tonsillectomy History of cataract extraction OD 10/2024, OS 11/2024 S/P TAVR (transcatheter aortic valve replacement) Ganglion cyst s/p excision from left wrist Family History Family History Father Family history of coronary artery disease Diabetes mellitus Social History Social History (Updated 10/26/25 @ 22:43 by Aliza Calvert APRN) Social History: She is and lives with her at [facility] . She has no children. 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 She denies any alcohol or illicit drugs. Her is a durable power collections attorney for healthcare. Code status full code Smoking packs per day: 2 Smoking cigarettes per day: 40.0 Years smoked: 25 Smoking pack-years: 50.00 Smoking status: Former smoker Tobacco type: cigarettes Second hand tobacco smoke exposure: Yes Smoking end date: 11/11/94 Alcohol intake: never Substance use: never Substance use type: does not use Lack of Transportation: YES Lack of Food: Never True Current Housing: I Have Housing Concerned About Future Housing: No Difficulty Paying Gas/Electric Bills: No Difficulty Paying for Meds: No Currently Unemployed: No Education: High School Diploma/GED Difficulty w/ Childcare or Family Care: No Living arrangements: alone Occupation/Education: retired Gender identity (if verbalized by the patient): Female Spiritual care concerns: No Exam Narrative: APPEARANCE: Well appearing, no pain, no distress, well-nourished. HEAD: normocephalic, atraumatic. EYES: PERRLA/EOMI, conjunctivae clear. NOSE: Normal no drainage EARS:TMS clear with good light reflex. THROAT: Pharynx clear, no exudate. NECK: Supple. No adenopathy, no masses. RESPIRATORY: Airway patent, respirations nonlabored. Clear to auscultation bilaterally, no rales, rhonchi, wheezing. CARDIOVASCULAR: Regular rate and rhythm without murmurs rubs or gallops. ABDOMINAL: Soft, nontender, nondistended, normal bowel sounds MUSCULOSKELETAL: Moves all extremities. Strength/ROM intact, No edema, No calf tenderness. NEURO: Alert. Cranial nerves II through XII intact. Good gait. Good coordination SKIN: Laceration to left lateral calf Course Vital Signs Vital signs: Vital Signs Temperature 98 F 11/09/25 12:42 Pulse Rate 70 11/09/25 12:42 Blood Pressure 127/65 11/09/25 12:42 Pulse Oximetry 100 11/09/25 12:42 Temperature 98.0 F 11/09/25 15:09 Pulse Rate 81 11/09/25 18:29 Respiratory Rate 16 11/09/25 18:29 Blood Pressure 124/51 L 11/09/25 18:29 Pulse Oximetry 92 11/09/25 18:29 Procedures Laceration Laceration 1: Date: 11/09/25 Time: 17:28 Site: lower extremity Side (If applicable): left Size (cm): 6 Description: linear Depth: simple, single layer Local Anesthetic: lidocaine 1% and with epi Amount of anesthesia used (mL): 5 Pre-repair: wound explored, irrigated and irrigated extensively ====== Skin Level ====== Skin layer closed with: nylon Size (cm): 3-0 Number of sutures: 8 Technique: simple, interrupted ====== Subcutaneous Layer ====== ====== Muscle Layer ====== ====== Tendon Layer ====== MDM MDM Narrative Medical decision making narrative: [age] old female presents emergency department for evaluation for a laceration to her left lower leg. Wound was repaired as described in the procedure note. Wound was only involving the adipose tissue and was clean. Patient family are comfortable the plan for discharge and close follow-up. Patient was started on prophylactic antibiotics and given a 1st dose of Keflex emergency department. Differential Diagnosis Differential Diagnosis: Muscular injury, ligament injury, laceration, vascular injury Discharge Plan Discharge Clinical Impression: Laceration Patient Disposition: Home Condition: Stable Instructions: Antibiotic Form, Laceration (ED) Additional Instructions: Antibiotic as directed until completed. Wound care as directed. Sutures need to be removed in 7-10 days. Have close follow-up with your primary care physician for wound check. Patient Language: Maltese Prescriptions: New cephalexin 500 mg capsule 500 mg PO BID 7 Days Qty: 14 0RF No Action minoxidil 2.5 mg tablet 5 mg PO DAILY Rx Instructions: 5 mg orally; bumetanide 1 mg tablet 1 mg PO DAILY 30 Days Qty: 17 0RF Rx Instructions: 1mg daily for 1 week then 0.5mg daily Multivitamin 50 Plus Tablet 1 tablet PO DAILY zinc gluconate 50 mg tablet 50 mg PO DAILY Rx Instructions: administer on empty stomach, at least 1 hour before or after meal(s) cholecalciferol (vitamin D3) 25 mcg (1,000 unit) capsule 1,000 unit PO DAILY ascorbic acid (vitamin C) 500 mg capsule 500 mg PO DAILY mirtazapine 15 mg tablet 15 mg PO HS amoxicillin-pot clavulanate [Augmentin] 500-125 mg Tablet 1 tablet PO Q12HR Qty: 83 0RF Rx Instructions: last dose 12/09/25 pm dose doxycycline hyclate 100 mg Tablet 100 mg PO Q12HR Qty: 83 0RF aspirin 81 mg Tablet 81 mg PO DAILY Patient Comments: . Calcium 600 + D(3) 600 mg capsule 600 mg PO DAILY Patient Comments: reports not taking now. citalopram 20 mg tablet 20 mg PO DAILY Qty: 90 2RF metoprolol tartrate 50 mg tablet 50 mg PO BID Qty: 180 3RF Procrit 20,000 unit/mL solution 20,000 unit subcut WEEKLY Rx Instructions: administer every Saturday mecobalamin (vitamin B12) 2,500 mcg tablet,chewable 2,000 mcg PO DAILY isosorbide mononitrate 30 mg tablet extended release 24 hr 30 mg PO DAILY Qty: 90 3RF ferrous sulfate 325 mg (65 mg iron) tablet 325 mg PO BID Qty: 180 1RF losartan 25 mg tablet 25 mg PO DAILY Qty: 30 8RF atorvastatin [Lipitor] 80 mg tablet 80 mg PO DAILY Qty: 90 2RF Follow-up/Referrals: Sabino Moore MD [Primary Care Provider, Family Practice]
--- NOTE | 2025-11-09 18:04 | PC.NURSE ---
Report attempted to Debbi Rodriguez. Placed on hold for extended time with no answer by staff. D/c instructions reviewed with pt. at bedside who is A&Ox4.
[2025-11-09 18:29] VITALS: BP 124/51; PULSE 81; RESP 16; O2SAT 92
[2025-11-09] MEDS: CEPHALEXIN 500 MG CAPSULE PO (18:34)
--- NOTE | 2025-11-09 18:44 | PC.NURSE ---
Report given to [facility]. All questions answered. Pt. left at time of EMS arrival and is meeting them at [facility].
== END 2025-11-09 18:47 | disposition home or self-care (01) ==
PROVIDERS: Emergency Provider Emergency Medicine; PCP Family Medicine
DX: S81.812A Laceration without foreign body, left lower leg, initial encounter (principal); W45.8XXA Other foreign body or object entering through skin, initial encounter; E11.22 Type 2 diabetes mellitus with diabetic chronic kidney disease; Z79.4 Long term (current) use of insulin; I12.9 Hypertensive chronic kidney disease with stage 1 through stage 4 chronic kidney disease, or unspecified chronic kidney disease; N18.4 Chronic kidney disease, stage 4 (severe); E78.2 Mixed hyperlipidemia; Z86.73 Personal history of transient ischemic attack (TIA), and cerebral infarction without residual deficits; Z87.891 Personal history of nicotine dependence
CPT/HCPCS: 12002; 99283; A9270; J2004